=== PATIENT | male | born 1965 | race Caucasian/White ===

== ENCOUNTER 2020-07-09 19:38 | Inpatient (IN) | payer MEDICARE, MEDICAID, SELFPAY ==
[2020-07-09 19:39] VITALS: BP 134/61; PULSE 81; RESP 16; TEMP 36.4; O2SAT 98; BMI 28.8
--- NOTE | 2020-07-09 19:53 | RAD_ITS ---
STUDY: X-RAY - LEFT FOOT CLINICAL: Male, 54 years old. Redness, pain and swelling to foot, started today. TECHNIQUE: 3 view(s) of the foot. COMPARISON: None. FINDINGS: Normal talus, calcaneus, and tarsal bones. Normal visualized subtalar, talonavicular, calcaneocuboid, tarsal and tarsometatarsal articulations. Normal metatarsi. Normal metatarsophalangeal joint of the great toe. Normal tibial and fibular sesamoid bones. Normal interphalangeal joint of the great toe. Normal phalanges of the great toe. Normal second through fifth metatarsophalangeal joints. Remote deformity of the third proximal phalanx. Vascular calcifications. Soft tissue swelling. RAD/Foot 2 Views IMPRESSION: No acute osseous abnormality is evident. Electronically Signed: Tung Ambrose MD at 21:03 EDT Tel , Service support ,
--- NOTE | 2020-07-09 19:54 | ED.VIS.GEN ---
History of Present Illness Chief Complaint: Cellulitis Narrative: Presents with left foot pain and swelling that started yesterday he gradually got worse but it seems to be gotten worse over the past few hours he is having some lymphangitic streaking. He has a history of kidney pancreas transplant. No fevers or chills. He has no abdominal pain no chest pain or shortness of breath. No known trauma but his sister did notice a puncture wound on the plantar side of his foot. Past Medical History - Allergies and Home Meds Allergies/Adverse Reactions: Allergies doxazosin Adverse Reaction (Verified 07/09/20 19:42) Rash doxycycline Adverse Reaction (Verified 07/09/20 19:42) Rash Penicillins Adverse Reaction (Verified 07/09/20 19:42) Rash Primary Care Physician: Tung Isaac MD [Primary Care Provider] - Past Medical History: - - Hypertension, history of diabetes, history of pancreas and kidney transplant on immunosuppressants Smoking Status: Never smoker Review of Systems All systems negative except as indicated General: Denies: Fever Cardiovascular: Denies: Chest pain, Palpitations Respiratory: Denies: Dyspnea, Cough Genitourinary: Denies: Dysuria, Hematuria Musculoskeletal: Reports: - - Left foot pain as in HPI. Denies: Myalgias Skin: Reports: Rash Neurological: Denies: Headache Psych: Denies: Depression Endocrine: Denies: Polyuria Hematologic: Denies: Easy bruising, Easy bleeding Physical Exam Vital Signs/Narrative: Vital Signs Temp Pulse Resp BP Pulse Ox 07/09/20 19:39 97.6 F L 81 16 134/61 H 98 General: Well nourished, Well developed Head: Normocephalic ENT: Moist mucous membranes Neck: Supple Cardiovascular: Regular rate, Regular rhythm Respiratory: No distress, CTA bilaterally Abdomen: Soft, Nontender, Nondistended Back: Nontender Extremities: - - There is an amputation of the left upper extremity. Left lower extremity shows a puncture wound distal plantar region as well as surrounding erythema on the distal dorsum foot with proximal lymphangitic streaking past the ankle. No calf pain no cellulitis of his leg. No crepitus Neurological: Alert, Normal Strength, Normal Sensation Diagnostic/Tx/Re-eval - Medical Decision Making She has a quite elevated CRP, otherwise his inflammatory markers are unremarkable regardless he is immunocompromised he has lymphangitic streaking. He was given antibiotics and will be admitted. I demarcated the lymphangitic streak. ED Disposition - Plan for ED Patient: Disposition: Acute Care Hospital [facility] Diagnosis: Cellulitis with lymphangitis Referrals: Tung Isaac MD [Primary Care Provider] -
[2020-07-09 20:26] LABS: Erythrocyte Sedimentation Rate 18 mm/hr (0-20)
[2020-07-09 20:30] LABS: Absolute Lymphocyte Count 2.08 X10^3/uL (0.83-4.51); Absolute Neutrophil Count 6.5 X10^3/uL (2.0-7.7); Basophil# 0.04 X10^3/uL; Basophil% 0.4 % (0-1); Eosinophil# 0.04 X10^3/uL; Eosinophils% 0.4 % (0-5); Hematocrit 44.4 % (40-54); Hemoglobin 14.6 g/dL (13.0-16.5); Lymphocyte # 2.08 X10^3/ul (4.0); Lymphocyte % 21.9 % (19-41); Mean Corp Hgb Conc 32.9 g/dL (32-36); Mean Corpuscular Hgb 28.6 pg (27.0-32.0); Mean Corpuscular Volume 87.1 fL (80-94); Mean Platelet Vol. 11.2 fl (6.2-12.0); Monocyte# 0.86 X10^3/uL; NRBC Flagged by Analyzer 0 % (0-5); Neutrophil # 6.45 X10^3/uL (2.7-7.7); Neutrophil % 67.9 % (47-70); Platelet Count 137 K/mm3 (150-450); RBC Distribution Width CV 13.5 % (11.6-14.6); RBC Distribution Width SD 42.1 fl (35.1-43.9); White Blood Count 9.5 K/mm3 (4.4-11.0)
[2020-07-09 20:40] LABS: ALB/GLOB Ratio 1.1 RATIO (0.9-2.4); AST(SGOT) 39 U/L (15-37); Alanine Aminotransfer ALT/SGPT 38 U/L (16-61); Albumin, Serum 3.4 g/dL (3.2-5.0); Alkaline Phosphatase 100 U/L (45-117); Anion Gap 5 (5-15); BUN 13 mg/dL (7-18); BUN/Creat Ratio 11.8 RATIO (10-20); Calcium,Total 8.5 mg/dL (8.5-10.1); Chloride 104 mmol/L (98-107); EST Glomerular Filtration Rate 74 mL/min (>60); Est Glom Filt Rate - Afr Amer 89 mL/min (>60); Estimated Creatinine Clearance 75.88 ml/min; Globulin 3.1 g/dL (2.2-4.2); Glucose 93 mg/dL (74-106); Potassium 3.5 mmol/L (3.5-5.1); Protein, Total 6.5 g/dL (6.4-8.2); Sodium Level 135 mmol/L (136-145)
[2020-07-09 21:13] VITALS: BP 128/66; PULSE 80; RESP 15; O2SAT 97
[2020-07-09 21:37] VITALS: BP 128/66; PULSE 80; RESP 15; TEMP 36.4; O2SAT 97
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
[2020-07-09 21:52] VITALS: BP 144/65; PULSE 64; RESP 18; TEMP 36.7; O2SAT 96; BMI 28.2
[2020-07-09 22:03] VITALS: BMI 28.2
[2020-07-09] MEDS: 0.9% Saline Lock 10 ML Syringe IV (22:32)
[2020-07-10 03:41] VITALS: BP 115/54; PULSE 77; RESP 16; TEMP 37.1; O2SAT 95
[2020-07-10] MEDS: 0.9% Saline Lock 10 ML Syringe IV ×4 (05:22→22:11)
[2020-07-10 05:42] LABS: Absolute Lymphocyte Count 1.33 X10^3/uL (0.83-4.51); Absolute Neutrophil Count 4.3 X10^3/uL (2.0-7.7); Basophil# 0.03 X10^3/uL; Basophil% 0.5 % (0-1); Eosinophil# 0.07 X10^3/uL; Eosinophils% 1.1 % (0-5); Hematocrit 41.9 % (40-54); Hemoglobin 13.5 g/dL (13.0-16.5); Lymphocyte # 1.33 X10^3/ul (4.0); Mean Corp Hgb Conc 32.2 g/dL (32-36); Mean Corpuscular Hgb 28.1 pg (27.0-32.0); Mean Corpuscular Volume 87.1 fL (80-94); Mean Platelet Vol. 10.8 fl (6.2-12.0); Monocyte# 0.62 X10^3/uL; Monocyte% 9.8 % (0-10); NRBC Flagged by Analyzer 0 % (0-5); Neutrophil # 4.26 X10^3/uL (2.7-7.7); Neutrophil % 67.3 % (47-70); Platelet Count 123 K/mm3 (150-450); RBC Distribution Width CV 13.3 % (11.6-14.6); RBC Distribution Width SD 42.2 fl (35.1-43.9); Red Blood Count 4.81 M/mm3 (4.6-6.2); White Blood Count 6.3 K/mm3 (4.4-11.0)
[2020-07-10 06:03] LABS: AST(SGOT) 37 U/L (15-37); Alanine Aminotransfer ALT/SGPT 36 U/L (16-61); Alkaline Phosphatase 95 U/L (45-117); Anion Gap 5 (5-15); BUN 10 mg/dL (7-18); BUN/Creat Ratio 11.8 RATIO (10-20); Calcium,Total 8.3 mg/dL (8.5-10.1); Chloride 105 mmol/L (98-107); Creatinine, Serum 0.85 mg/dL (0.70-1.30); EST Glomerular Filtration Rate 99 mL/min (>60); Est Glom Filt Rate - Afr Amer 120 mL/min (>60); Estimated Creatinine Clearance 98.19 ml/min; Globulin 3.1 g/dL (2.2-4.2); Glucose 100 mg/dL (74-106); Potassium 3.5 mmol/L (3.5-5.1); Protein, Total 6.1 g/dL (6.4-8.2); Sodium Level 136 mmol/L (136-145)
[2020-07-10 06:54] VITALS: O2SAT 92
[2020-07-10 08:17] VITALS: BP 129/56; PULSE 86; RESP 16; TEMP 37.3; O2SAT 94
[2020-07-10] MEDS: Tacrolimus Anhydrous 1 MG Capsule PO (08:21)
[2020-07-10] MEDS: Mycophenolate Mofetil 250 MG Capsule 500 MG PO ×2 (08:21→20:06)
[2020-07-10] MEDS: Enoxaparin 40 MG/0.4 ML Syringe SC (08:22)
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
--- NOTE | 2020-07-10 11:42 | PN_ITS ---
Patient Problems: Active and Suspected Problems (Last Updated 07/09/20 @ 22:[address] Zachary Jean MD) Cellulitis with lymphangitis (Acute) Subjective: Patient seen and examined. He had no complaints today. He still has redness on his left foot, but denies any fever, chills or increased pain. He says his foot is less painful. Review of systems otherwise negative. Vitals/I&O's: Vital Signs Temp Pulse Resp BP Pulse Ox 99.1 F 86 16 129/56 H 94 07/10/20 08:17 07/10/20 08:17 07/10/20 08:17 07/10/20 08:17 07/10/20 08:17 Oxygen Delivery Method Room Air Weight: 190 lb 14.725 oz Body Mass Index (BMI) 28.2 Intake and Output for Last 24 Hours 07/08/20 07/09/20 07/10/20 23:59 23:59 23:59 Intake Total 606 / 606 210.50 / 210.50 Balance 606 / 606 210.50 / 210.50 General: Alert, Oriented x3, Cooperative HEENT: Atraumatic, PERRLA, EOMI, Normocephalic Oral: Dry Mucosa Neck: Supple, No JVD, Negative Carotid Bruits Lungs: Clear to auscultation, Normal air movement, No rhonchi, No wheeze Cardiovascular: Regular rate, Regular Rhythm, Normal S1, Normal S2, No murmurs Abdomen: Bowel Sounds Present, Soft, Non Tender, Non-Distended, No Hepato- splenomegaly Extremities: No clubbing, No cyanosis, No edema, Capillary Refill Less than 3 Seconds Skin: No rashes, No breakdown Musculoskeletal: - - LUE below elbow amputation. erythema on dorsum of left foot. has firm induration with healing superficial ulcer Neurological: Cranial nerves II-XII grossly intact, Neuro grossly intact, Motor Exam 5/5 strength throughout Psych/Mental Status: Normal Affect, Appropriate, Alert and oriented to time, place, person, mood and affect Laboratory Results 07/09/20 20:10: WBC 9.5, RBC 5.10, Hgb 14.6, Hct 44.4, MCV 87.1, MCH 28.6, MCHC 32.9, RDW Std Deviation 42.1, RDW Coeff of Jairo 13.5, Plt Count 137 L, MPV 11.2, Immature Gran % (Auto) 0.400, Neut % (Auto) 67.9, Lymph % (Auto) 21.9, [place] % (Auto) 9.0, Eos % (Auto) 0.4, Baso % (Auto) 0.4, Absolute Neuts (auto) 6.5, Absolute Lymphs (auto) 2.08, Nucleated RBC % 0, ESR 18 07/09/20 20:10: Sodium 135 L, Potassium 3.5, Chloride 104, Carbon Dioxide 26.0, Anion Gap 5, BUN 13, Creatinine 1.10, Estim Creat Clear Calc 75.88, Est GFR (MDRD) Af Amer 89, Est GFR (MDRD) Non-Af 74, BUN/Creatinine Ratio 11.8, Glucose 93, Calcium 8.5, Total Bilirubin 0.90, AST 39 H, ALT 38, Alkaline Phosphatase 100, C-React Prot Ext Range 51.00 H, Total Protein 6.5, Albumin 3.4, Globulin 3.1, Albumin/Globulin Ratio 1.1 07/10/20 05:16: WBC 6.3, RBC 4.81, Hgb 13.5, Hct 41.9, MCV 87.1, MCH 28.1, MCHC 32.2, RDW Std Deviation 42.2, RDW Coeff of Jairo 13.3, Plt Count 123 L, MPV 10.8, Immature Gran % (Auto) 0.300, Neut % (Auto) 67.3, Lymph % (Auto) 21.0, [place] % (Auto) 9.8, Eos % (Auto) 1.1, Baso % (Auto) 0.5, Absolute Neuts (auto) 4.3, Absolute Lymphs (auto) 1.33, Nucleated RBC % 0 07/10/20 05:16: Sodium 136, Potassium 3.5, Chloride 105, Carbon Dioxide 26.0, Anion Gap 5, BUN 10, Creatinine 0.85, Estim Creat Clear Calc 98.19, Est GFR (MDRD) Af Amer 120, Est GFR (MDRD) Non-Af 99, BUN/Creatinine Ratio 11.8, Glucose 100, Calcium 8.3 L, Total Bilirubin 1.00, AST 37, ALT 36, Alkaline Phosphatase 95, Total Protein 6.1 L, Albumin 3.0 L, Globulin 3.1, Albumin/Globulin Ratio 1.0 Diagnostic Data Foot X-Ray 07/09/20 19:53 IMPRESSION: No acute osseous abnormality is evident. Electronically Signed: Tung Ambrose MD at 21:03 EDT Tel , Service support , Current Medications Acetaminophen (Tylenol) 650 mg PO Q6H PRN PRN PRN Reason: Pain Score 1-10/Temp > 100.7 F Albuterol Sulfate (Ventolin Aerosols) 2.5 mg INHALATION Q2H PRN PRN PRN Reason: Shortness of Breath/Wheezing Enoxaparin Sodium (Lovenox) 40 mg SC DAILY [facility] Last Admin: 07/10/20 08:22 Dose: 40 mg Documented by: Sodium Chloride () 250 mls @ 15 mls/hr IV .[id number] PRN PRN Reason: Saline Flush Last Infusion: 07/10/20 07:45 Dose: 15 mls/hr Documented by: Sodium Chloride () 250 mls @ 15 mls/hr IV .[id number] PRN PRN Reason: Additional IVPB Infusion Clindamycin Phosphate 900 mg/ (Dextrose) 106 mls @ 150 mls/hr IV Q8 [facility] Last Infusion: 07/10/20 06:11 Dose: Infused Documented by: Melatonin (Melatonin) 3 mg PO QHS PRN PRN PRN Reason: INSOMNIA Mycophenolate Mofetil (Cellcept) 500 mg PO BID@0800,1999 [facility] Last Admin: 07/10/20 08:21 Dose: 500 mg Documented by: Ondansetron HCl (Zofran) 4 mg IV Q8H PRN PRN PRN Reason: NAUSEA/VOMITING Sodium Chloride () 10 - 40 ml IV UD PRN PRN Reason: SALINE FLUSH Last Admin: 07/10/20 06:26 Dose: 10 ml Documented by: Tacrolimus (Prograf) 3 mg PO 0800 [facility] Tacrolimus (Prograf) 2 mg PO 1999 [facility] STROKE Vital Signs/Narrative: Vital Signs Temp Pulse Resp BP Pulse Ox 07/10/20 08:17 99.1 F 86 16 129/56 H 94 Medical Necessity - Tobacco Use Smoking Status: Never smoker Assessment/Plan All Active Problems (Last Updated 07/09/20 @ 22:[address] Zachary Jean MD) Cellulitis with lymphangitis (Acute) # Cellulitis of the left foot * pain i well controlled * on IV clindamycin; foot xray showed no acute osseous abnormality * podiatry consulted. * # ESRD * s/p kidney stransplant,. Also had a pancreas transplant * on tacrolimus and mycophenolate * * #Dupuytren's contracture * to follow up with surgeon on outpatient's basis. * DVT prophylaxis: lovenox Inpatient E&M: 68566 Subs Hosp L2
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
[2020-07-10 13:25] VITALS: BP 134/63; PULSE 85; RESP 18; TEMP 36.9; O2SAT 96
[2020-07-10 18:05] VITALS: BP 122/61; PULSE 98; RESP 18; TEMP 37.2; O2SAT 97
[2020-07-10] MEDS: Tacrolimus Anhydrous 1 MG Capsule 2 MG PO (20:07)
[2020-07-10 20:09] VITALS: BP 118/53; PULSE 86; RESP 17; TEMP 37.2; O2SAT 95
[2020-07-11 02:23] VITALS: BP 134/71; PULSE 82; RESP 16; TEMP 37.2; O2SAT 94
[2020-07-11] MEDS: 0.9% Saline Lock 10 ML Syringe IV ×3 (02:28→21:22)
[2020-07-11 06:32] LABS: Absolute Lymphocyte Count 1.69 X10^3/uL (0.83-4.51); Absolute Neutrophil Count 3.7 X10^3/uL (2.0-7.7); Basophil# 0.03 X10^3/uL; Basophil% 0.5 % (0-1); Eosinophil# 0.04 X10^3/uL; Eosinophils% 0.7 % (0-5); Hematocrit 43.6 % (40-54); Hemoglobin 14.1 g/dL (13.0-16.5); Lymphocyte # 1.69 X10^3/ul (4.0); Lymphocyte % 27.6 % (19-41); Mean Corp Hgb Conc 32.3 g/dL (32-36); Mean Corpuscular Hgb 28.1 pg (27.0-32.0); Mean Corpuscular Volume 86.9 fL (80-94); Mean Platelet Vol. 10.3 fl (6.2-12.0); Monocyte% 9.8 % (0-10); NRBC Flagged by Analyzer 0 % (0-5); Neutrophil # 3.74 X10^3/uL (2.7-7.7); Neutrophil % 60.9 % (47-70); Platelet Count 147 K/mm3 (150-450); RBC Distribution Width CV 13.3 % (11.6-14.6); RBC Distribution Width SD 41.7 fl (35.1-43.9); Red Blood Count 5.02 M/mm3 (4.6-6.2); White Blood Count 6.1 K/mm3 (4.4-11.0)
[2020-07-11 07:02] LABS: Anion Gap 5 (5-15); BUN 9 mg/dL (7-18); BUN/Creat Ratio 9.5 RATIO (10-20); Calcium,Total 8.5 mg/dL (8.5-10.1); Chloride 107 mmol/L (98-107); Creatinine, Serum 0.95 mg/dL (0.70-1.30); EST Glomerular Filtration Rate 87 mL/min (>60); Est Glom Filt Rate - Afr Amer 106 mL/min (>60); Estimated Creatinine Clearance 87.86 ml/min; Glucose 115 mg/dL (74-106); Potassium 3.7 mmol/L (3.5-5.1); Sodium Level 138 mmol/L (136-145)
[2020-07-11] MEDS: Mycophenolate Mofetil 250 MG Capsule 500 MG PO ×2 (07:51→19:33)
[2020-07-11] MEDS: Tacrolimus Anhydrous 1 MG Capsule 3 MG PO (07:51)
[2020-07-11 08:23] VITALS: BP 109/60; PULSE 54; RESP 18; TEMP 36.7; O2SAT 97
[2020-07-11] MEDS: Enoxaparin 40 MG/0.4 ML Syringe SC (09:27)
--- NOTE | 2020-07-11 11:15 | PCM.PN.HOSP ---
Patient Problems: Active and Suspected Problems (Last Updated 07/09/20 @ 22:[address] Zachary Jean MD) Cellulitis with lymphangitis (Acute) Foot ulcer, left (Acute) Subjective: Patient seen and examined. He feels well and has no complaints. Review of systems otherwise negative. Podiatry reviewed patient yesterday and did a bedside debridement of the left foot. No further workup planned per podiatry. He has remained hemodynamically stable. Vitals/I&O's: Vital Signs Temp Pulse Resp BP Pulse Ox 98.0 F 54 L 18 109/60 97 07/11/20 08:23 07/11/20 08:23 07/11/20 08:23 07/11/20 08:23 07/11/20 08:23 Oxygen Delivery Method Room Air Weight: 190 lb 14.725 oz Body Mass Index (BMI) 28.2 Intake and Output for Last 24 Hours 07/09/20 07/10/20 07/11/20 23:59 23:59 23:59 Intake Total 606 / 606 1347.50 / 1347.50 1001.5 / 1001.5 Balance 606 / 606 1347.50 / 1347.50 1001.5 / 1001.5 General: Alert, Oriented x3, Cooperative HEENT: Atraumatic, PERRLA, EOMI, Normocephalic Oral: Dry Mucosa Neck: Supple, No JVD, Negative Carotid Bruits Lungs: Clear to auscultation, Normal air movement, No rhonchi, No wheeze Cardiovascular: Regular rate, Regular Rhythm, Normal S1, Normal S2, No murmurs Abdomen: Bowel Sounds Present, Soft, Non Tender, Non-Distended, No Hepato-splenomegaly Extremities: No clubbing, No cyanosis, No edema, Capillary Refill Less than 3 Seconds Skin: No rashes, No breakdown Musculoskeletal: - - LUE below elbow amputation. left foot bandaged. Neurological: Cranial nerves II-XII grossly intact, Neuro grossly intact, Motor Exam 5/5 strength throughout Psych/Mental Status: Normal Affect, Appropriate, Alert and oriented to time, place, person, mood and affect Microbiology Past 72 Hours 07/10/20 22:30 Wound - Aerobic & Anaerobic Swabs Gram Stain - Final Laboratory Results 07/11/20 06:25: WBC 6.1, RBC 5.02, Hgb 14.1, Hct 43.6, MCV 86.9, MCH 28.1, MCHC 32.3, RDW Std Deviation 41.7, RDW Coeff of Jairo 13.3, Plt Count 147 L, MPV 10.3, Immature Gran % (Auto) 0.500, Neut % (Auto) 60.9, Lymph % (Auto) 27.6, [place] % (Auto) 9.8, Eos % (Auto) 0.7, Baso % (Auto) 0.5, Absolute Neuts (auto) 3.7, Absolute Lymphs (auto) 1.69, Nucleated RBC % 0 07/11/20 06:25: Sodium 138, Potassium 3.7, Chloride 107, Carbon Dioxide 26.0, Anion Gap 5, BUN 9, Creatinine 0.95, Estim Creat Clear Calc 87.86, Est GFR (MDRD) Af Amer 106, Est GFR (MDRD) Non-Af 87, BUN/Creatinine Ratio 9.5 L, Glucose 115 H, Calcium 8.5 Diagnostic Data Foot X-Ray 07/09/20 19:53 IMPRESSION: No acute osseous abnormality is evident. Electronically Signed: Tung Ambrose MD at 21:03 EDT Tel , Service support , Current Medications Acetaminophen (Tylenol) 650 mg PO Q6H PRN PRN PRN Reason: Pain Score 1-10/Temp > 100.7 F Albuterol Sulfate (Ventolin Aerosols) 2.5 mg INHALATION Q2H PRN PRN PRN Reason: Shortness of Breath/Wheezing Enoxaparin Sodium (Lovenox) 40 mg SC DAILY [facility] Last Admin: 07/11/20 09:27 Dose: 40 mg Documented by: Sodium Chloride () 250 mls @ 15 mls/hr IV .[id number] PRN PRN Reason: Saline Flush Last Infusion: 07/11/20 02:29 Dose: Infused Documented by: Sodium Chloride () 250 mls @ 15 mls/hr IV .[id number] PRN PRN Reason: Additional IVPB Infusion Clindamycin Phosphate 900 mg/ (Dextrose) 106 mls @ 150 mls/hr IV Q8 [facility] Last Infusion: 07/11/20 05:49 Dose: Infused Documented by: Melatonin (Melatonin) 3 mg PO QHS PRN PRN PRN Reason: INSOMNIA Mycophenolate Mofetil (Cellcept) 500 mg PO BID@799,1999 [facility] Last Admin: 07/11/20 07:51 Dose: 500 mg Documented by: Ondansetron HCl (Zofran) 4 mg IV Q8H PRN PRN PRN Reason: NAUSEA/VOMITING Sodium Chloride () 10 - 40 ml IV UD PRN PRN Reason: SALINE FLUSH Last Admin: 07/11/20 02:28 Dose: 10 ml Documented by: Tacrolimus (Prograf) 3 mg PO 08 [facility] Last Admin: 07/11/20 07:51 Dose: 3 mg Documented by: Tacrolimus (Prograf) 2 mg PO 1999 [facility] Last Admin: 07/10/20 20:07 Dose: 2 mg Documented by: STROKE Vital Signs/Narrative: Vital Signs Temp Pulse Resp BP Pulse Ox 07/11/20 08:23 98.0 F 54 L 18 109/60 97 Medical Necessity - Tobacco Use Smoking Status: Never smoker Assessment/Plan All Active Problems (Last Updated 07/09/20 @ 22:[address] Zachary Jean MD) Cellulitis with lymphangitis (Acute) Foot ulcer, left (Acute) # Cellulitis of the left foot pain is well controlled; had left foot debridement by podiatry. per podiatry, no further workup planned on IV clindamycin; foot xray showed no acute osseous abnormality podiatry consulted. # ESRD s/p kidney stransplant,. Also had a pancreas transplant on tacrolimus and mycophenolate #Dupuytren's contracture to follow up with surgeon on outpatient's basis. DVT prophylaxis: lovenox Disposition: for dc home tomorrow. Inpatient E&M: 28465 Subs Hosp L2
--- NOTE | 2020-07-11 12:40 | PN_ITS ---
Patient Problems: Active and Suspected Problems (Last Updated 07/09/20 @ 22:[address] Zachary Jean MD) Cellulitis with lymphangitis (Acute) Foot ulcer, left (Acute) - Physical Exam Vitals/I&O's: Vital Signs Temp Pulse Resp BP Pulse Ox 98.0 F 54 L 18 109/60 97 07/11/20 08:23 07/11/20 08:23 07/11/20 08:23 07/11/20 08:23 07/11/20 08:23 Oxygen Delivery Method Room Air Weight: 86.6 kg Body Mass Index (BMI) 28.2 Intake and Output for Last 24 Hours 07/09/20 07/10/20 07/11/20 23:59 23:59 23:59 Intake Total 606 / 606 1347.50 / 1347.50 1001.5 / 1001.5 Balance 606 / 606 1347.50 / 1347.50 1001.5 / 1001.5 General: Alert, Oriented x3 HEENT: Atraumatic Extremities: No clubbing, No cyanosis, Capillary Refill Less than 3 Seconds, Diminished Peripheral Pulses, Edema - improved, - - Left upper extremity partial ampputation. Lower extremity: Nonpalpable left DP, palpable right DP and b/l PT. Skin is warm. Muscles strength full for all muscle groups. Mild pain on palpation to plantar left forefoot. Decreased light touch sensation to digits. Erythema noted to dorsal foot, improved from yesterday. Edema noted to left foot. Plantar forefoot ulceration. Did not probe, to level of sub q, no fluctuance, no crepitus, no malodor, granular base, no drainage Skin: Ulcer/ Wound Musculoskeletal: Tenderness - left foot ulcer Neurological: Neuro grossly intact Psych/Mental Status: Normal Affect, Appropriate Microbiology Past 72 Hours 07/10/20 22:30 Wound - Aerobic & Anaerobic Swabs Gram Stain - Final Laboratory Results 07/11/20 06:25: WBC 6.1, RBC 5.02, Hgb 14.1, Hct 43.6, MCV 86.9, MCH 28.1, MCHC 32.3, RDW Std Deviation 41.7, RDW Coeff of Jairo 13.3, Plt Count 147 L, MPV 10.3, Immature Gran % (Auto) 0.500, Neut % (Auto) 60.9, Lymph % (Auto) 27.6, [place] % (Auto) 9.8, Eos % (Auto) 0.7, Baso % (Auto) 0.5, Absolute Neuts (auto) 3.7, Absolute Lymphs (auto) 1.69, Nucleated RBC % 0 07/11/20 06:25: Sodium 138, Potassium 3.7, Chloride 107, Carbon Dioxide 26.0, Anion Gap 5, BUN 9, Creatinine 0.95, Estim Creat Clear Calc 87.86, Est GFR (MDRD) Af Amer 106, Est GFR (MDRD) Non-Af 87, BUN/Creatinine Ratio 9.5 L, Glucose 115 H, Calcium 8.5 Current Medications Acetaminophen (Tylenol) 650 mg PO Q6H PRN PRN PRN Reason: Pain Score 1-10/Temp > 100.7 F Albuterol Sulfate (Ventolin Aerosols) 2.5 mg INHALATION Q2H PRN PRN PRN Reason: Shortness of Breath/Wheezing Enoxaparin Sodium (Lovenox) 40 mg SC DAILY [facility] Last Admin: 07/11/20 09:27 Dose: 40 mg Documented by: Sodium Chloride () 250 mls @ 15 mls/hr IV .[id number] PRN PRN Reason: Saline Flush Last Infusion: 07/11/20 02:29 Dose: Infused Documented by: Sodium Chloride () 250 mls @ 15 mls/hr IV .[id number] PRN PRN Reason: Additional IVPB Infusion Clindamycin Phosphate 900 mg/ (Dextrose) 106 mls @ 150 mls/hr IV Q8 [facility] Last Infusion: 07/11/20 05:49 Dose: Infused Documented by: Melatonin (Melatonin) 3 mg PO QHS PRN PRN PRN Reason: INSOMNIA Mycophenolate Mofetil (Cellcept) 500 mg PO BID@0800,2000 [facility] Last Admin: 07/11/20 07:51 Dose: 500 mg Documented by: Ondansetron HCl (Zofran) 4 mg IV Q8H PRN PRN PRN Reason: NAUSEA/VOMITING Sodium Chloride () 10 - 40 ml IV UD PRN PRN Reason: SALINE FLUSH Last Admin: 07/11/20 02:28 Dose: 10 ml Documented by: Tacrolimus (Prograf) 3 mg PO 0800 [facility] Last Admin: 07/11/20 07:51 Dose: 3 mg Documented by: Tacrolimus (Prograf) 2 mg PO 1999 [facility] Last Admin: 07/10/20 20:07 Dose: 2 mg Documented by: Medical Necessity - Tobacco Use Smoking Status: Never smoker Assessment/Plan All Active Problems (Last Updated 07/09/20 @ 22:[address] Zachary Jean MD) Cellulitis with lymphangitis (Acute) Foot ulcer, left (Acute) left foot cellulitis left foot ulcer Patient was seen and examined Dorsal erythema noted with plantar ulceration doesn't probe Ulcer didn't probe and was no fluctuance, low suspicion of underlying abscess. I don't believe further imaging is necessary XR reviewed without foreign body no leukocytosis, normal ESR, elevated CRP Continue wound care with DSD can do limited weight bearing with focus to heel Continue IV abx follow wound culture results Will continue to follow Ok to DC from podiatry perspective, follow up with Dr Garcia in 1 week. Continue wound care covering plantar foot with DSD
[2020-07-11 14:25] VITALS: BP 137/67; PULSE 78; RESP 18; TEMP 36.6; O2SAT 98
--- NOTE | 2020-07-11 14:41 | DCINST_ITS ---
Discharge Activity: Return to Normal Activity - focus weight bearing to heel left foot Weight Bearing Status: Weight bearing as tolerated, Partial weight bearing - to heel left Call your doctor if your incision/area has: Increased Pain/ Swelling, Increased Redness, Foul Smelling Discharge Call your doctor if you observe: Fever of 101 or Higher, Change in Color, Dizziness, Chest pain, Calf discomfort Change Dressing in (Days):: 2 - every other day Cleanse incision/area with: Soap & Water Additional Dressing/Incision Instructions:: after cleaning cover with dry sterile dressing, if gets wet clean and reapply dressing Allergies/Adverse Reactions: Allergies doxazosin Adverse Reaction (Verified 07/09/20 21:55) Rash doxycycline Adverse Reaction (Verified 07/09/20 21:55) Rash Penicillins Adverse Reaction (Verified 07/09/20 21:55) Rash Medications to take at Discharge Mycophenolate Mofetil [Cellcept] 500 mg PO BID 07/09/20 Tacrolimus Anhydrous [Prograf] 2 mg PO QHS 07/10/20 Tacrolimus Anhydrous [Prograf] 3 mg PO DAILY 07/10/20 Primary Care Physician: Tung Isaac MD [Primary Care Provider] - Test Results: Test results from this visit will be discussed in further detail at your follow- up appointment, if applicable. Please Follow Up With: Sherron Garcia DPM When: in 1 week
[2020-07-11 17:19] VITALS: O2SAT 93
[2020-07-11 19:32] VITALS: BP 112/70; PULSE 83; RESP 17; TEMP 37.1; O2SAT 97
[2020-07-11] MEDS: Tacrolimus Anhydrous 1 MG Capsule 2 MG PO (19:33)
[2020-07-12 02:34] VITALS: BP 128/67; PULSE 82; RESP 16; TEMP 36.9; O2SAT 97
[2020-07-12] MEDS: 0.9% Saline Lock 10 ML Syringe IV (05:46)
[2020-07-12] MEDS: Enoxaparin 40 MG/0.4 ML Syringe SC (07:44)
[2020-07-12] MEDS: Mycophenolate Mofetil 250 MG Capsule 500 MG PO (07:44)
[2020-07-12] MEDS: Tacrolimus Anhydrous 1 MG Capsule 3 MG PO (07:44)
[2020-07-12 07:52] VITALS: BP 128/56; PULSE 85; RESP 16; TEMP 36.9; O2SAT 98
--- NOTE | 2020-07-12 09:11 | DCINST_ITS ---
- Discharge Diagnoses Current Active Problems: Current Active and Chronic Problems (Last Updated 07/09/20 @ 22:[address] Zachary Jean MD) Cellulitis with lymphangitis (Acute) Foot ulcer, left (Acute) You will use the following diet at home:: No restrictions Your food should be the consistency of: Regular Your liquids should be the consistency of: Regular/Thin Discharge Activity: Return to Normal Activity - focus weight bearing to heel l eft foot Weight Bearing Status: Weight bearing as tolerated, Partial weight bearing - to heel left Call your doctor if your incision/area has: Increased Pain/ Swelling, Increased Redness, Foul Smelling Discharge Call your doctor if you observe: Fever of 101 or Higher, Change in Color, Dizziness, Chest pain, Calf discomfort Change Dressing in (Days):: 2 - every other day Cleanse incision/area with: Soap & Water Additional Dressing/Incision Instructions:: after cleaning cover with dry sterile dressing, if gets wet clean and reapply dressing Instructions: ED Cellulitis Allergies/Adverse Reactions: Allergies doxazosin Adverse Reaction (Verified 07/09/20 21:55) Rash doxycycline Adverse Reaction (Verified 07/09/20 21:55) Rash Penicillins Adverse Reaction (Verified 07/09/20 21:55) Rash Medications to take at Discharge Mycophenolate Mofetil [Cellcept] 500 mg PO BID 07/09/20 Tacrolimus Anhydrous [Prograf] 2 mg PO QHS 07/10/20 Tacrolimus Anhydrous [Prograf] 3 mg PO DAILY 07/10/20 Clindamycin HCl 300 mg PO [id number] #20 cap 07/12/20 The following prescriptions were given: Clindamycin HCl 300 mg PO [id number] #20 cap Transmission Status: Pending to [facility]/pharmacy #[id number] Primary Care Physician: Tung Isaac MD [Primary Care Provider] - Please follow up with your Primary Care Physician in: 1-2 weeks Test Results: Test results from this visit will be discussed in further detail at your follow- up appointment, if applicable. Please Follow Up With: Sherron Garcia DPM When: in 1 week Proposed Discharge Date: 07/12/20
--- NOTE | 2020-07-12 09:13 | PCM.DC.SUM ---
Discharge Date and Diagnosis Date of Admission: 07/09/20 Date of Discharge: 07/12/20 - Primary Discharge Diagnosis Acute Problems: Active Problems (Last Updated 07/09/20 @ 22:[address] Zachary Jean MD) Cellulitis with lymphangitis (Acute) Foot ulcer, left (Acute) Hospital Course and Treatment Imaging Results: Diagnostic Data Foot X-Ray 07/09/20 19:53 IMPRESSION: No acute osseous abnormality is evident. Electronically Signed: Tung Ambrose MD at 21:03 EDT Tel , Service support , podiatry Operations: None Procedures: None Summary of Care Provided: The patient is a 54 year old M with a past medical history as outlined including ESRD s/p renal transplant. Was admitted via the ED on 07/09/2020 with a complaint of redness of his left foot as well as a puncture injury on the plantar side of his left foot. He had associated swelling and pain of the left foot with the pain increased when he bore weight on the affected foot. He denied any fever or chills, nausea vomiting or diarrhea. Review of symptoms otherwise negative. X-ray of the left foot done showed no acute pathology. He was admitted and managed for cellulitis of the left foot. He was started on IV clindamycin. Podiatry was consulted and patient had bedside debridement of the left plantar forefoot ulceration. Patient tolerated procedure well. ESR was normal and CRP was elevated. Patient remained stable, and pain resolved. Patient was discharged home on 07/12/2020 with a script for PO clindamycin 300mg q6hrly x 5 days. He is to follow up with PCP and podiatry in 1 week. Patient seen and examined prior to discharge. He had no complaints and felt well. Review of systems was otherwise negative. Labs and vitals stable. Home medications reviewed and reconciled. O/E: Vital Signs Temp Pulse Resp BP Pulse Ox 98.5 F 85 16 128/56 H 90 07/12/20 07:52 07/12/20 07:52 07/12/20 07:52 07/12/20 07:52 07/12/20 10:14 General: Alert, Oriented x3, Cooperative HEENT: Atraumatic, PERRLA, EOMI, Normocephalic Oral: Dry Mucosa Neck: Supple, No JVD, Negative Carotid Bruits Lungs: Clear to auscultation, Normal air movement, No rhonchi, No wheeze Cardiovascular: Regular rate, Regular Rhythm, Normal S1, Normal S2, No murmurs Abdomen: Bowel Sounds Present, Soft, Non Tender, Non-Distended, No Hepato-splenomegaly Extremities: No clubbing, No cyanosis, No edema, Capillary Refill Less than 3 Seconds Skin: No rashes, No breakdown Musculoskeletal: - - LUE below elbow amputation. left foot bandaged. Neurological: Cranial nerves II-XII grossly intact, Neuro grossly intact, Motor Exam 5/5 strength throughout Psych/Mental Status: Normal Affect, Appropriate, Alert and oriented to time, place, person, mood and affect Plan is for discharge home today on PO clindamycin x 5 days. He is to keep his wound dressed as per podiatry instructions until he is reviewed by podiatry. - Physical Exam Vitals/I&O's: Vital Signs Temp Pulse Resp BP Pulse Ox 98.5 F 85 16 128/56 H 98 07/12/20 07:52 07/12/20 07:52 07/12/20 07:52 07/12/20 07:52 07/12/20 07:52 Oxygen Delivery Method Room Air Weight: 190 lb 14.725 oz Body Mass Index (BMI) 28.2 Intake and Output for Last 24 Hours 07/10/20 07/11/20 07/12/20 23:59 23:59 23:59 Intake Total 1347.50 / 1347.50 2943.5 / 2943.5 746 / 746 Balance 1347.50 / 1347.50 2943.5 / 2943.5 746 / 746 Microbiology Past 72 Hours 07/10/20 22:30 Wound - Aerobic & Anaerobic Swabs Gram Stain - Final Current Medications Acetaminophen (Tylenol) 650 mg PO Q6H PRN PRN PRN Reason: Pain Score 1-10/Temp > 100.7 F Albuterol Sulfate (Ventolin Aerosols) 2.5 mg INHALATION Q2H PRN PRN PRN Reason: Shortness of Breath/Wheezing Enoxaparin Sodium (Lovenox) 40 mg SC DAILY [facility] Last Admin: 10/07/20 07:44 Dose: 40 mg Documented by: Sodium Chloride () 250 mls @ 15 mls/hr IV .[id number] PRN PRN Reason: Saline Flush Last Infusion: 07/11/20 02:29 Dose: Infused Documented by: Sodium Chloride () 250 mls @ 15 mls/hr IV .[id number] PRN PRN Reason: Additional IVPB Infusion Clindamycin Phosphate 900 mg/ (Dextrose) 106 mls @ 150 mls/hr IV Q8 [facility] Last Infusion: 07/12/20 06:28 Dose: Infused Documented by: Melatonin (Melatonin) 3 mg PO QHS PRN PRN PRN Reason: INSOMNIA Mycophenolate Mofetil (Cellcept) 500 mg PO BID@0800,1999 [facility] Last Admin: 07/12/20 07:44 Dose: 500 mg Documented by: Ondansetron HCl (Zofran) 4 mg IV Q8H PRN PRN PRN Reason: NAUSEA/VOMITING Sodium Chloride () 10 - 40 ml IV UD PRN PRN Reason: SALINE FLUSH Last Admin: 07/12/20 05:46 Dose: 10 ml Documented by: Tacrolimus (Prograf) 3 mg PO 0800 [facility] Last Admin: 07/12/20 07:44 Dose: 3 mg Documented by: Tacrolimus (Prograf) 2 mg PO 1999 [facility] Last Admin: 07/11/20 19:33 Dose: 2 mg Documented by: Discharge Diet: Low fat/ Low Cholesterol Discharge Activity: Return to Normal Activity - focus weight bearing to heel left foot Weight Bearing Status: Weight bearing as tolerated, Partial weight bearing - to heel left Call your doctor if your incision/area has: Increased Pain/ Swelling, Increased Redness, Foul Smelling Discharge Call your doctor if you observe: Fever of 101 or Higher, Change in Color, Dizziness, Chest pain, Calf discomfort Change Dressing in (Days):: 2 - every other day Cleanse incision/area with: Soap & Water Additional Dressing/Incision Instructions:: after cleaning cover with dry sterile dressing, if gets wet clean and reapply dressing Home Medications: Medications to take at Discharge Mycophenolate Mofetil [Cellcept] 500 mg PO BID 07/09/20 Tacrolimus Anhydrous [Prograf] 2 mg PO QHS 07/10/20 Tacrolimus Anhydrous [Prograf] 3 mg PO DAILY 07/10/20 Clindamycin HCl 300 mg PO [id number] #20 cap 07/12/20 Following Prescriptions Were Given to Patient: Clindamycin HCl 300 mg PO [id number] #20 cap Transmission Status: Received by [facility]/pharmacy #[id number] Primary Care Physician: Tung Isaac MD [Primary Care Provider] - Please follow up with your Primary Care Physician in: 1-2 weeks Please Follow Up With: Sherron Garcia DPM When: in 1 week Patient Instructions: ED Cellulitis Disposition: Home Minutes spent on discharge:: 40 Patient Condition:: Stable Medical Necessity - Tobacco Use Smoking Status: Never smoker Meaningful Use Info Meaningful Use Diagnoses (Choose all that apply): None applicable Inpatient E&M: [id number] [facility] Hosp
[2020-07-12 10:14] VITALS: O2SAT 90
--- NOTE | 2020-07-12 11:00 | PHA.DC.MC ---
Pharmacy Service has performed discharge medication reconciliation and counseling for this patient. 1. CLINDAMYCIN 300MG PO Q6H X 5 DAYS The patient's discharge medication list was reviewed for discrepancies and discrepancies were resolved. Home Medications Mycophenolate Mofetil [Cellcept] 500 mg PO BID 07/09/20 Tacrolimus Anhydrous [Prograf] 2 mg PO QHS 07/10/20 Tacrolimus Anhydrous [Prograf] 3 mg PO DAILY 07/10/20 Clindamycin HCl 300 mg PO [id number] #20 cap 07/12/20 The patient was counseled on the following discharge medications and changes in medications for homegoing were reviewed. The Reason for Use, instructions for use, and potential side effects were reviewed for all new medications. The patient's questions regarding all of their medications were answered. The patient was able to verbally demonstrate an understanding of their discharge medications. Patient was counseled by pharmacy general managerHilda.
--- NOTE | 2020-07-12 12:01 | CASEMGMT ---
RN CM NOTE: Pt being discharged home. RN CM to room to discuss any home-going needs/concerns. Pt denies having any needs/concerns/questions. Pt aware he is to be PWB lt foot and denies having any concerns w/being able to get around/ambulate safely. Pt made aware to ask for RN CM if any concerns/needs arise. Georgie PATRICKN RN CM
== END 2020-07-12 12:36 | disposition home or self-care (01) | DRG 592 ==
LOC: ED 21:18 → MS3 21:26
PROVIDERS: Admitting Provider Hospitalist; Emergency Provider Emergency Medicine; PCP Family Medicine; Referring Provider Hospitalist; Visit Provider Student in an Organized Health Care Education/Training Program
DX: L97.521 Non-pressure chronic ulcer of other part of left foot limited to breakdown of skin (principal); N18.6 End stage renal disease; L03.116 Cellulitis of left lower limb; Z94.83 Pancreas transplant status; Z94.0 Kidney transplant status; I12.0 Hypertensive chronic kidney disease with stage 5 chronic kidney disease or end stage renal disease; E11.22 Type 2 diabetes mellitus with diabetic chronic kidney disease; Z89.212 Acquired absence of left upper limb below elbow; Z79.899 Other long term (current) drug therapy; M72.0 Palmar fascial fibromatosis [Dupuytren]
CPT/HCPCS: 73620; 80048; 80053; 85025; 85652; 86140; 87070; 87075; 87077; 87186; 87205; 97802; 99285; J7050; A4216

== ENCOUNTER 2020-07-20 16:35 | Inpatient (IN) | payer MEDICARE, MEDICAID, SELFPAY ==
[2020-07-20 16:36] VITALS: BP 140/66; PULSE 91; RESP 18; TEMP 36.6; O2SAT 99; BMI 27.4
--- NOTE | 2020-07-20 16:49 | ED.VIS.GEN ---
History of Present Illness Chief Complaint: Lower Extremity Injury Informant: Patient Onset: Days Context: Gradual Onset Timing: Continuous Current Severity: Moderate Maximum Severity: Moderate Narrative: The patient is a 54-year-old male with medical history significant for prior renal and pancreas transplant in 2007 who is on long-term immunosuppressants presents to the emergency department with increasing drainage from his left foot. The patient was hospitalized about 10 days ago with foot infection. He was treated with IV antibiotics and was seen in consultation with podiatry. There was no evidence of deep space infection and his symptoms had improved. He was discharged on clindamycin. He states that he finished it about 4 days ago. He had follow-up today with podiatry. His ulcer was unroofed. There was deep purulent drainage concerning for deep space infection. He was sent over from the podiatry office. He denies any fevers or chills. He does admit this mild pain in the foot. He has been compliant with all of his immune medications. He denies any new symptoms. Prior similar symptoms: Yes Recent Illness/Hospitalization: Yes Past Medical History - Allergies and Home Meds Allergies/Adverse Reactions: Allergies doxazosin Adverse Reaction (Verified 07/20/20 16:38) Rash doxycycline Adverse Reaction (Verified 07/20/20 16:38) Rash Penicillins Adverse Reaction (Verified 07/20/20 16:38) Rash Prior records reviewed: Yes Past Medical History: - - Renal and pancreas transplant Surgical History: - - Eye laser surgery Smoking Status: Never smoker - Family History Maternal Family History: Reports: Diabetes, - - Parkinson's disease Paternal Family History: Reports: COPD, Diabetes Review of Systems General: Denies: Chills, Fever, Sweats Eyes: Denies: Visual changes - bilaterally, Diplopia ENT: Denies: Rhinorrhea, Sore throat Cardiovascular: Denies: Chest pain, Palpitations Respiratory: Denies: Dyspnea, Cough, Dyspnea on exertion Gastrointestinal: Denies: Abdominal pain, Nausea, Vomiting, Diarrhea, Melena, Hematochezia Genitourinary: Denies: Dysuria, Hematuria, Frequency Musculoskeletal: Denies: Back pain, Extremity Pain Skin: Denies: Rash, Wounds Neurological: Denies: Headache, Weakness, Numbness Physical Exam Vital Signs/Narrative: Vital Signs Temp Pulse Resp BP Pulse Ox 07/20/20 16:36 97.9 F 91 18 140/66 H 99 Inital Vital Signs reviewed: Yes General: Well nourished, Well developed, No Acute Distress Head: Normocephalic, Atraumatic Eyes: Perrl, EOMI ENT: Moist mucous membranes, No rhinorrhea Neck: Supple, Nontender Cardiovascular: Regular rate, Regular rhythm, No murmurs Respiratory: No distress, CTA bilaterally, Chest nontender Abdomen: Soft, Nontender, Nondistended, Normal bowel sounds Back: Nontender, Normal Inspection Extremities: No edema, Tenderness - Patient does have erythema on the dorsum of the foot. There is some purulence between the first and second toe. There is unroofed ulcer on the plantar aspect of the foot. There is no significant streaking. The pulses are normal. Skin: Normal color, No rash Neurological: Alert, Oriented x3, Cranial nerves II-XII grossly intact, Normal Strength, Normal Sensation Psychological: Normal affect, Normal Mood Diagnostic/Tx/Re-eval Abnormal Lab Results 07/20/20 07/20/20 07/20/20 17:10 17:10 17:10 WBC 8.9 RBC 5.32 Hgb 14.6 Hct 45.5 MCV 85.5 MCH 27.4 MCHC 32.1 RDW Std Deviation 39.5 RDW Coeff of Jairo 12.8 Plt Count 206 MPV 10.9 Immature Gran % (Auto) 0.900 Neut % (Auto) 72.7 H Lymph % (Auto) 16.9 L [place] % (Auto) 8.6 Eos % (Auto) 0.3 Baso % (Auto) 0.6 Absolute Neuts (auto) 6.5 Absolute Lymphs (auto) 1.51 Nucleated RBC % 0 ESR 42 H Sodium 135 L Potassium 3.9 Chloride 104 Carbon Dioxide 25.0 Anion Gap 6 BUN 12 Creatinine 1.08 Estim Creat Clear Calc 77.28 Est GFR (MDRD) Af Amer 91 Est GFR (MDRD) Non-Af 75 BUN/Creatinine Ratio 11.1 Glucose 105 Lactic Acid 1.4 Calcium 9.2 Total Bilirubin 0.50 AST 19 ALT 30 Alkaline Phosphatase 91 C-React Prot Ext Range 33.10 H Total Protein 7.0 Albumin 3.2 Globulin 3.8 Albumin/Globulin Ratio 0.8 L - Medical Decision Making The patient presents with worsening foot infection. He was already debrided by podiatry who had concern for deep space infection given the purulence. Metabolic work-up was pursued and is relatively unremarkable. As the patient is on significant immunosuppressants with worsening infection, I do feel that he is going to require hospitalization. He was started on broad-spectrum antibiotics. The patient was discussed with the hospitalist who agrees with plan of care. Impression 1. Left foot infection with cellulitis ED Disposition - Plan for ED Patient: Disposition: Acute Care Hospital [facility]
--- NOTE | 2020-07-20 17:06 | CON.PCM_ITS ---
Problem List (1) Abscess of left foot Status: Acute (2) Cellulitis with lymphangitis Status: Acute (3) Foot ulcer, left Status: Acute Qualifiers: Non-pressure ulcer stage: limited to breakdown of skin Qualified Code(s): L97.521 - Non-pressure chronic ulcer of other part of left foot limited to breakdown of skin Reason for Consult Date of Consultation: 07/20/20 Reason for Consultation: left foot wound History of Present Illness: The patient is a 54 year old M [] Past Medical History Medical History: Medical History (Last Updated 07/09/20 @ 22:[address] Zachary Jean MD) History of end stage renal disease Z87.448 Allergies doxazosin Adverse Reaction (Verified 07/20/20 16:38) Rash doxycycline Adverse Reaction (Verified 07/20/20 16:38) Rash Penicillins Adverse Reaction (Verified 07/20/20 16:38) Rash Home Medications: Ambulatory Orders Medication Instructions Recorded Mycophenolate Mofetil [Cellcept] 500 mg PO BID 07/09/20 Tacrolimus Anhydrous [Prograf] 2 mg PO QHS 07/10/20 Tacrolimus Anhydrous [Prograf] 3 mg PO DAILY 07/10/20 Surgical History: Surgical History (Last Updated 07/09/20 @ 22:[address] Zachary Jean MD) Kidney transplant recipient Z94.0 Pancreas transplanted Z94.83 Surgical History: - - Eye laser surgery Smoking Status: Never smoker - *Family History Maternal History Items: Diabetes, - - Parkinson's disease Paternal History Items: COPD, Diabetes Review of Systems Constitutional: Denies: Chills, Fever Cardiovascular: Reports: Edema. Denies: Chest Pain Respiratory: Denies: Cough, Shortness of Breath Skin: Reports: Wounds - left foot Neurological: Reports: Tingling. Denies: Numbness Patient Problems: Active and Suspected Problems (Last Updated 07/09/20 @ 22:[address] Zachary Jean MD) Cellulitis with lymphangitis (Acute) Foot ulcer, left (Acute) Abscess of left foot (Acute) Subjective: Patient is a 54 year old male who presents to clinic today for follow up from hospital stay. Patient was released from the hospital last Friday with 5 days worth of clindamycin . Patient was admitted for left leg cellulitis. Patient was unsure if he stepped on anything. Patient at that time was noted to have a callus to plantar forefoot and Podiatry was consulted to assess if this could be source of cellulitis. Callus was debrided with no underlying ulceration, drainage, puncture wound, nor fluctuance noted at the time. Patient reports foot became red and swollen starting Friday. Since Friday swelling has improved but foot has gotten more red. Patient denies any pain to the foot. He also denies N/F/V/C/CP/SOB/streaking/purulence/drainage. Patient states he is no longer diabetic after his pancreas and kidney transplant. He also is no longer in renal failure. 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 Patient was sent to the ED from the supervisor [employer] office for further work up of ulceration. - Physical Exam Vitals/I&O's: Vital Signs Temp Pulse Resp BP Pulse Ox 97.9 F 91 18 140/66 H 99 07/20/20 16:36 07/20/20 16:36 07/20/20 16:36 07/20/20 16:36 07/20/20 16:36 Oxygen Delivery Method Room Air Weight: 84.368 kg Body Mass Index (BMI) 27.4 General: Alert, Oriented x3 HEENT: Atraumatic Extremities: No clubbing, No cyanosis, Capillary Refill Less than 3 Seconds, No Calf Tenderness, Diminished Peripheral Pulses, Edema, Tenderness, - - left arm partial amputation Skin: Ulcer/ Wound - left foot plantar blister upon deroofing was noted to have underlying ulceration with purulent drainage, culture obtained. Wound goes up into 1st webspace, some probing noted, fibrotic base, pain to palpation, wound measures 5cmx5.5cmx superficial with central aspect deeper measuring 1x1.5x0.2cm Musculoskeletal: Muscle Wasting Neurological: Neuro grossly intact, Sensory exam intact to light touch and pain - left foot missing 2 locations as tested with a semmes juhi monofiliament full vibratory sensation Psych/Mental Status: Normal Affect, Appropriate Assessment/Plan All Active Problems (Last Updated 07/09/20 @ 22:[address] Zachary Jean MD) Cellulitis with lymphangitis (Acute) Foot ulcer, left (Acute) Abscess of left foot (Acute) celluliltis left foot ulceration left foot abscess left foot Patient seen and examined with Sister present in office Blister was deroofed in office with underlying ulceration and purulent drainage expressed from probing area of ulceration Purulent drainage expressed in office and cultured. Aerobic culture sent to [facility] for processing Patient was sent to ED for further work up MRI suggested as there is concern for deeper abscess XR from previous admission showed no foreign body Potential need for surgery, possibly Friday, recommend NPO for friday at this time Discussed with patient possibility of need for surgery depending on MRI results. Discussed possibility of abscess, foreign body, or bone infection would be better assessed once MRI obtained. Discussed all risks benefits alternatives complications of surgery including but not limited to infection, delayed healing, nonhealing, need for further surgery or amputation. All questions were answered to patient satisfaction. Follow labs and cultures Podiatry will continue to follow Will follow MRI results for possible need for surgery tomorrow.
[2020-07-20 17:13] VITALS: BP 161/64; PULSE 83; RESP 16; TEMP 36.6; O2SAT 98
[2020-07-20 17:23] LABS: Absolute Lymphocyte Count 1.51 X10^3/uL (0.83-4.51); Absolute Neutrophil Count 6.5 X10^3/uL (2.0-7.7); Basophil# 0.05 X10^3/uL; Basophil% 0.6 % (0-1); Eosinophil# 0.03 X10^3/uL; Eosinophils% 0.3 % (0-5); Hematocrit 45.5 % (40-54); Hemoglobin 14.6 g/dL (13.0-16.5); Lymphocyte # 1.51 X10^3/ul (4.0); Lymphocyte % 16.9 % (19-41); Mean Corp Hgb Conc 32.1 g/dL (32-36); Mean Corpuscular Hgb 27.4 pg (27.0-32.0); Mean Corpuscular Volume 85.5 fL (80-94); Mean Platelet Vol. 10.9 fl (6.2-12.0); Monocyte# 0.77 X10^3/uL; Monocyte% 8.6 % (0-10); NRBC Flagged by Analyzer 0 % (0-5); Neutrophil # 6.47 X10^3/uL (2.7-7.7); Neutrophil % 72.7 % (47-70); Platelet Count 206 K/mm3 (150-450); RBC Distribution Width CV 12.8 % (11.6-14.6); RBC Distribution Width SD 39.5 fl (35.1-43.9); Red Blood Count 5.32 M/mm3 (4.6-6.2); White Blood Count 8.9 K/mm3 (4.4-11.0)
[2020-07-20 17:38] LABS: ALB/GLOB Ratio 0.8 RATIO (0.9-2.4); AST(SGOT) 19 U/L (15-37); Alanine Aminotransfer ALT/SGPT 30 U/L (16-61); Albumin, Serum 3.2 g/dL (3.2-5.0); Alkaline Phosphatase 91 U/L (45-117); Anion Gap 6 (5-15); BUN 12 mg/dL (7-18); BUN/Creat Ratio 11.1 RATIO (10-20); Calcium,Total 9.2 mg/dL (8.5-10.1); Chloride 104 mmol/L (98-107); Creatinine, Serum 1.08 mg/dL (0.70-1.30); EST Glomerular Filtration Rate 75 mL/min (>60); Est Glom Filt Rate - Afr Amer 91 mL/min (>60); Estimated Creatinine Clearance 77.28 ml/min; Globulin 3.8 g/dL (2.2-4.2); Glucose 105 mg/dL (74-106); Potassium 3.9 mmol/L (3.5-5.1); Sodium Level 135 mmol/L (136-145)
[2020-07-20 17:39] LABS: Erythrocyte Sedimentation Rate 42 mm/hr (0-20)
[2020-07-20 17:57] LABS: Lactic Acid 1.4 mmol/L (0.4-1.9)
[2020-07-20 17:58] VITALS: BP 136/55; PULSE 91; RESP 16; TEMP 36.7; O2SAT 98
[2020-07-20] MEDS: Ceftriaxone 1 GM/50 ML BAG IV (17:58)
[2020-07-20 18:06] VITALS: BMI 27.5
--- NOTE | 2020-07-20 18:08 | PCM.HP.STD ---
<Skip Bender - Last Filed: 07/20/20 18:08> Problem List (1) Cellulitis and abscess of foot Status: Acute (2) ESRD (end stage renal disease) Status: Chronic (3) Renal transplant recipient Status: Chronic (4) HTN (hypertension) Status: Chronic (5) Diabetes Status: Chronic (6) 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 Status: Chronic History of Present Illness Date of Admission: 07/20/20 Chief Complaint: worsening left foot wound The patient is a 54 year old M with a past medical history of end-stage renal disease secondary to hypertension and diabetes, status post renal transplant, status post pancreas transplant, who presented to the emergency room from podiatry office for worsening of his left foot wound. The patient was admitted to the hospital with a left foot cellulitis secondary to oxacillin resistant Staphylococcus auricularis, at that time treated with IV clindamycin with transition to 5 days of oral clindamycin at discharge. The patient completed his 5 days of antibiotics and has been performing daily dressing changes with the help of his sister. He followed up with his punch press feeder today who performed an in office debridement, deroofed the wound and noted a significant amount of purulent drainage. The patient notes that there is increased swelling, erythema, and pain. He denies any injury to the foot since his last admission. He has not felt sick in any other way-he denies fevers, chills, nausea, vomiting, diarrhea. He states he was doing well up until today. [] Past Medical History Past Medical History (Chronic Problems): Chronic Problems (Last Updated 07/09/20 @ 22:[address] 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 Zachary Jean MD) History of end stage renal disease Z87.448 Allergies doxazosin Adverse Reaction (Verified 07/20/20 16:38) Rash doxycycline Adverse Reaction (Verified 07/20/20 16:38) Rash Penicillins Adverse Reaction (Verified 07/20/20 16:38) Rash Home Medications: Ambulatory Orders Medication Instructions Recorded Mycophenolate Mofetil [Cellcept] 500 mg PO BID 07/09/20 Tacrolimus Anhydrous [Prograf] 2 mg PO DAILY@2000 07/10/20 Tacrolimus Anhydrous [Prograf] 3 mg PO DAILY@0800 07/10/20 Surgical History: Surgical History (Last Updated 07/09/20 @ 22:[address] Zachary Jean MD) Kidney transplant recipient Z94.0 Pancreas transplanted Z94.83 Surgical History: - - Eye laser surgery, pancreas transplant, renal transplant. Psychiatric History: No pertinent psych hx Lives: Alone Smoking Status: Never smoker Tobacco Use: Non-smoker Alcohol: None Drugs: None - *Family History Maternal History Items: Diabetes, - - Parkinson's disease Paternal History Items: COPD, Diabetes Review of Systems Constitutional: Denies: Chills, Fever, Weight Change, Fatigue HEENT: Denies: Head Aches, Sinus Congestion, Sinus Drainage Cardiovascular: Denies: Chest Pain, Heaviness, Light Headedness, Palpitations Respiratory: Denies: Cough, Shortness of Breath, Shortness of breath at rest, Sputum production Gastrointestinal: Denies: Abdominal Pain, Diarrhea, Nausea, Vomiting Genitourinary: Denies: Dysuria, Hesitancy, Urgency Musculoskeletal: Denies: Joint Pain, Joint Tenderness, Muscle pain Skin: Reports: Wounds - Worsening of left foot wound with increased erythema and swelling surrounding this area. Denies: Rash Neurological: Denies: Numbness, Tingling, Focal weakness Psychiatric: Denies: Anxiety, Depression, Homicidal Ideations, Suicidal Ideations Hematologic/ Lymphatic: Denies: Easy Bruising, Easy Bleeding VTE Information - Inpt Only VTE Present on Admission: No VTE Mechan Device Prophylaxis: None VTE Pharm Prophylaxis ordered?: Yes - Physical Exam Vitals/I&O's: Vital Signs Temp Pulse Resp BP Pulse Ox 98.1 F 91 16 136/55 H 98 07/20/20 17:58 07/20/20 17:58 07/20/20 17:58 07/20/20 17:58 07/20/20 17:58 Oxygen Delivery Method Room Air Weight: 186 lb Body Mass Index (BMI) 27.4 General: Alert, Oriented x3, Cooperative HEENT: Atraumatic, PERRLA, EOMI, Normocephalic Neck: Supple, No JVD, Negative Carotid Bruits Lungs: Clear to auscultation, Normal air movement Cardiovascular: Regular rate, No murmurs Abdomen: Bowel Sounds Present, Soft, Non Tender Extremities: No edema, Capillary Refill Less than 3 Seconds Skin: No rashes, No breakdown, - - Left foot with nonhealing wound with surrounding erythema and mild edema. Wound is located on the plantar aspect of the foot near the first and second toes. No drainage at this time. Bilateral toes with dystrophic nails, fungal changes, right foot with large callus on the plantar aspect Musculoskeletal: No Tenderness to Palpation of Joints or Extremities Neurological: Cranial nerves II-XII grossly intact Psych/Mental Status: Normal Affect, Appropriate, Alert and oriented to time, place, person, mood and affect Laboratory Results 07/20/20 17:10: WBC 8.9, RBC 5.32, Hgb 14.6, Hct 45.5, MCV 85.5, MCH 27.4, MCHC 32.1, RDW Std Deviation 39.5, RDW Coeff of Jairo 12.8, Plt Count 206, MPV 10.9, Immature Gran % (Auto) 0.900, Neut % (Auto) 72.7 H, Lymph % (Auto) 16.9 L, [place] % (Auto) 8.6, Eos % (Auto) 0.3, Baso % (Auto) 0.6, Absolute Neuts (auto) 6.5, Absolute Lymphs (auto) 1.51, Nucleated RBC % 0, ESR 42 H 07/20/20 17:10: Sodium 135 L, Potassium 3.9, Chloride 104, Carbon Dioxide 25.0, Anion Gap 6, BUN 12, Creatinine 1.08, Estim Creat Clear Calc 77.28, Est GFR (MDRD) Af Amer 91, Est GFR (MDRD) Non-Af 75, BUN/Creatinine Ratio 11.1, Glucose 105, Calcium 9.2, Total Bilirubin 0.50, AST 19, ALT 30, Alkaline Phosphatase 91, C-React Prot Ext Range 33.10 H, Total Protein 7.0, Albumin 3.2, Globulin 3.8, Albumin/Globulin Ratio 0.8 L 07/20/20 17:10: Lactic Acid 1.4 Current Medications Vancomycin HCl 1,250 mg/ (Sodium Chloride) 275 mls @ 167 mls/hr IV X1 ONE Stop: 07/20/20 19:23 Ceftriaxone Sodium (Rocephin) 1 gm in 50 mls @ 100 mls/hr IV X1 ONE Stop: 07/20/20 18:14 Last Admin: 07/20/20 17:58 Dose: 100 mls/hr Documented by: Assessment/Plan All Active Problems (Last Updated 07/09/20 @ 22:[address] Zachary Jean MD) Left forefoot ulcer (Acute) Left forefoot cellulitis (Acute) 1. Nonhealing wound left foot plantar area near 1st/2nd toes - recently here with Staph auricularis resistant to oxacillin. Repeat wound cx taken today with Dr. Garcia who deroofed the wound in the office today. Lactate pending. No fever/leukocytosis. Pt completed course of clindamycin IV to PO after last admission for the same. Consult podiatry. Start Vanc/cefazolin. Obtain MRI of the foot. Wound care consult. 2. ESRD 2/2 DM and HTN s/p renal transplant - renal function is good at this time. 3. DM s/p pancreas transplant - no longer on diabetic agents. 4. HTN - no longer on medications for this 5. s/p kidney/pancreas transplants - continue prograf/cellcept. Transplants were in 2006, pt states no issues since. DVT ppx: lovenox This patient was seen by Skip Bender PA-C under the supervision of Dr. Fung. <Ivy Fung - Last Filed: 07/20/20 18:36> History of Present Illness The patient is a 54 year old M [] Past Medical History Medical History: Medical History (Last Updated 07/09/20 @ 22:[address] Zachary Jean MD) History of end stage renal disease Z87.448 Allergies doxazosin Adverse Reaction (Verified 07/20/20 16:38) Rash doxycycline Adverse Reaction (Verified 07/20/20 16:38) Rash Penicillins Adverse Reaction (Verified 07/20/20 16:38) Rash Surgical History: Surgical History (Last Updated 07/09/20 @ 22:[address] Zachary Jean MD) Kidney transplant recipient Z94.0 Pancreas transplanted Z94.83 - Physical Exam Vitals/I&O's: Vital Signs Temp Pulse Resp BP Pulse Ox 98.1 F 91 16 136/55 H 98 07/20/20 17:58 07/20/20 17:58 07/20/20 17:58 07/20/20 17:58 07/20/20 17:58 Oxygen Delivery Method Room Air Weight: 186 lb Body Mass Index (BMI) 27.4 Laboratory Results 07/20/20 17:10: WBC 8.9, RBC 5.32, Hgb 14.6, Hct 45.5, MCV 85.5, MCH 27.4, MCHC 32.1, RDW Std Deviation 39.5, RDW Coeff of [place]airo 12.8, Plt Count 206, MPV 10.9, Immature Gran % (Auto) 0.900, Neut % (Auto) 72.7 H, Lymph % (Auto) 16.9 L, [place] % (Auto) 8.6, Eos % (Auto) 0.3, Baso % (Auto) 0.6, Absolute Neuts (auto) 6.5, Absolute Lymphs (auto) 1.51, Nucleated RBC % 0, ESR 42 H 07/20/20 17:10: Sodium 135 L, Potassium 3.9, Chloride 104, Carbon Dioxide 25.0, Anion Gap 6, BUN 12, Creatinine 1.08, Estim Creat Clear Calc 77.28, Est GFR (MDRD) Af Amer 91, Est GFR (MDRD) Non-Af 75, BUN/Creatinine Ratio 11.1, Glucose 105, Calcium 9.2, Total Bilirubin 0.50, AST 19, ALT 30, Alkaline Phosphatase 91, C-React Prot Ext Range 33.10 H, Total Protein 7.0, Albumin 3.2, Globulin 3.8, Albumin/Globulin Ratio 0.8 L 07/20/20 17:10: Lactic Acid 1.4 Current Medications Acetaminophen (Acetaminophen 325 Mg Tablet) 650 mg PO Q6H PRN PRN PRN Reason: Pain Score 1-10/Temp > 100.7 F Vancomycin HCl 1,250 mg/ (Sodium Chloride) 275 mls @ 167 mls/hr IV X1 ONE Stop: 07/20/20 19:23 Sodium Chloride () 1,000 mls @ 75 mls/hr IV .[id number] RADHA Stop: 07/21/20 20:54 Cefazolin Sodium () 1 gm in 50 mls @ 100 mls/hr IV Q8 RADHA Vancomycin HCl 750 mg/ Sodium (Chloride) 265 mls @ 250 mls/hr IV Q12H RADHA Mycophenolate Mofetil (Mycophenolate Mofetil 500 Mg Tablet) 500 mg PO BID RADHA Ondansetron HCl (Ondansetron 4 Mg/2 Ml Vial) 4 mg IV Q8H PRN PRN PRN Reason: NAUSEA/VOMITING Senna/Docusate Sodium (Senna/Docusate Sodium 1 Tablet) 2 tablet PO BID PRN PRN PRN Reason: Constipation Tacrolimus (Tacrolimus Anhydrous 1 Mg Capsule) 2 mg PO QHS RADHA Tacrolimus (Tacrolimus Anhydrous 1 Mg Capsule) 3 mg PO DAILY RADHA Zolpidem Tartrate (Zolpidem Tartrate 5 Mg Tablet) 5 mg PO QHS PRN PRN PRN Reason: INSOMNIA Assessment/Plan Hospitalist note: I am seeing this patient in conjunction with Skip Bender. I independently seen and examined the patient. History and physical and laboratory data reviewed and I concur with the above admission and treatment plan. Patient was sent to ER by his punch press feeder for worsening left foot wound infection and cellulitis. Patient was admitted recently for left foot cellulitis, was discharged on p.o. clindamycin which was completed. Patient reported increasing swelling and erythema of the left foot and he has been having purulent discharge. He had a history of kidney and pancreatic transplant he has been on immune suppressive agents. He has history of diabetes mellitus, status post pancreatic transplant and currently, blood sugar has been under control and he is not on any antidiabetic medications. Patient had a history of hypertension and he has been off antihypertensive medication since his kidney transplant. He denies fever or chills. He denies any other complaints. His vital signs are stable. His routine blood work was unremarkable. LFT was normal. ESR and CRP were elevated. Lactic acid was normal. Is being admitted for recurrent left foot cellulitis/nonhealing infected plantar ulcer of the left foot. - Physical Exam General: Alert, Oriented x3, Cooperative, No apparent distress. HEENT: Atraumatic, PERRLA, EOMI. Neck: Supple, No JVD, Negative Carotid Bruits, Trachea Midline, Thyroid Normal. Lungs: Clear to auscultation, Normal air movement, No rhonchi, No wheeze, No rales. Cardiovascular: Regular rate, Regular Rhythm, Normal S1, Normal S2, PMI Normal. Abdomen: Bowel Sounds Present, Soft, Non Tender, Non-Distended, No Hepato-splenomegaly. Extremities: No clubbing, No cyanosis, No edema Skin: No skin rash. Left foot: Mild erythema and swelling of the left forefoot. Nonhealing ulcer with surrounding erythema on the plantar aspect of the forefoot. Neurological: Cranial nerves are intact, neuro grossly intact Vital Signs are stable. Assessment and plan: #1 left forefoot plantar nonhealing/infected wound/left forefoot cellulitis: In context of recent admission for cellulitis that was treated with clindamycin, completed as outpatient. Previous wound culture reviewed. Routine blood work was unremarkable. No evidence of sepsis or severe sepsis. Lactic acid is normal. ESR and CRP were elevated. Wound culture repeated today at the podiatry office. Blood culture sent from ED. Plan: Admit to Med[facility] floor, start IV cefazolin and vancomycin, MRSA wound screen by DNA, IV fluids, Tylenol as needed, Zofran as needed, MRI left foot to rule out osteomyelitis, podiatry medicine consult, PT OT evaluation and treatment when appropriate. #2 other chronic medical problems: Stable, continue current medications above. This note was generated with [employer] dictation software. It may contain incorrect words, spelling, and punctuation that were not noted in checking the note before signing. Inpatient E&M: 95123 Init Hosp L2
--- NOTE | 2020-07-20 18:15 | MRI_ITS ---
ACR Level 3 findings have been noted. An addendum which confirms receipt of the report will follow. HISTORY: Left foot wound plantar surface of the forefoot since 07/09/2020. Debridement today. X-rays are available from July 09, 2020 Technique: Sagittal T1 and T2 fat sat, coronal T1 and T2 through the toes, and axial T2 through the toes were obtained. The only fat-saturated series the sagittal series. 181 images. Findings: Abnormal increased T2-weighted signal is present within the subcutaneous and myofascial tissues about the left foot and ankle from metatarsals from the tarsals to the phalanges. Deep to the proximal aspect of the phalanges, extending to the level of the metatarsophalangeal joints, but not necessarily extending into the joints, there is an area of indurated tissues. This area begins on the lateral aspect of the first metatarsal phalangeal joint, and extends to the lateral aspect of the third metatarsophalangeal joint. There appears to be some skin ulceration plantar to the second metatarsophalangeal joint. Abnormal increased T2-weighted signal consistent with marrow edema and osteomyelitis is present within the second proximal phalanx. Flexor tendons appear to be intact. The wound that is acutely postoperative by history has been debrided appears to be at the level of the ulcer, plantar to the second metatarsophalangeal joint. MRI/Lower Ext/No Jt/w/o IMPRESSION: Ulceration on the plantar surface of the foot at the level of the second metatarsophalangeal joint, likely the area that were has been debrided at the recent surgery. Focal abnormal area of edema and a small amount of fluid but without araceli abscess extending from the lateral aspect of the first metatarsophalangeal joint to the lateral aspect of the third metatarsal phalangeal joint consistent with the perhaps abscess or wound that was debrided. Diffuse myofascitis throughout the entire imaged area of the foot. Focal osteomyelitis on the plantar surface of the second proximal phalanx at 2046 Reported and signed by: Wade Mayes MD Electronically Signed: Wade Maeys MD at 20:45 EDT Tel , Service support ,
[2020-07-20 18:33] VITALS: BMI 27.5
[2020-07-20] MEDS: 0.9% Normal Saline 1,000 ML 75 ML IV (20:56)
[2020-07-20 21:47] VITALS: BMI 27.5
[2020-07-20 21:50] VITALS: BP 115/59; PULSE 82; RESP 16; TEMP 36.6; O2SAT 98
--- NOTE | 2020-07-20 21:56 | PCM.RX.CS ---
Consult Pharmacy has been consulted to manage selected antiobiotic: Vancomycin Type of Consult: New start Suspected Infection: Skin/Soft tissue Prior Doses of Antibiotics Received/Current Regimen: Medications Vancomycin HCl 1,250 mg/ (Sodium Chloride) 275 mls @ 167 mls/hr IV Q12H RADHA Discontinued medications Vancomycin HCl 1,250 mg/ (Sodium Chloride) 275 mls @ 167 mls/hr IV X1 ONE Stop: 07/20/20 19:23 Last Admin: 07/20/20 20:57 Dose: 167 mls/hr Labs: Sodium 135 mmol/L (136-145) L 07/20/20 17:10 Potassium 3.9 mmol/L (3.5-5.1) 07/20/20 17:10 Chloride 104 mmol/L (98-107) 07/20/20 17:10 Carbon Dioxide 25.0 mmol/L (21.0-32.0) 07/20/20 17:10 Anion Gap 6 (5-15) 07/20/20 17:10 BUN 12 mg/dL (7-18) 07/20/20 17:10 Creatinine 1.08 mg/dL (0.70-1.30) 07/20/20 17:10 Est GFR (MDRD) Af Amer 91 mL/min (>60) 07/20/20 17:10 Est GFR (MDRD) Non-Af 75 mL/min (>60) 07/20/20 17:10 BUN/Creatinine Ratio 11.1 RATIO (10-20) 07/20/20 17:10 Glucose 105 mg/dL (74-106) 07/20/20 17:10 Weight used for dosin.6 kg Estimated Creatinine Clearance: 77 Goal Trough: 15-20 mcg/mL Pharmacy Plan for Drug Dosing: Pharmacy Service will continue to monitor and adjust dosing as required. Follow-Up Labs: Trough Vancomycin Labs to be done on [date and time ordered]: 07/22/20 @0830
[2020-07-20] MEDS: Cefazolin 1 GM/50 ML BAG IV (23:12)
[2020-07-20 23:32] LABS: M R Staph aureus DNA By PCR Negative (Negative); Probe Check PASS; Specimen Processing Control PASS; Staph aureus DNA By PCR NEGATIVE (Negative)
[2020-07-21] VITALS (11 sets, daily range): BP systolic 100–121; BP diastolic 51–72; PULSE 73–91; RESP 16–18; TEMP 36.2–37.7; O2SAT 93–98
[2020-07-21] MEDS: Cefazolin 1 GM/50 ML BAG IV ×3 (05:22→23:19)
[2020-07-21] MEDS: Mycophenolate Mofetil 250 MG Capsule 500 MG PO ×2 (07:37→21:06)
[2020-07-21] MEDS: Tacrolimus Anhydrous 1 MG Capsule 3 MG PO (07:37)
--- NOTE | 2020-07-21 11:10 | BON_PTH ---
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 Chino Collado MD : 1965 BED: 1 DIS: 07/24/2020 SPEC #: [id number] RECD: 07/21/20 13:24 STATUS: IGLESIA REQ #: [id number] MICHAEL: 07/21/20 11:[address]: Aris Valdez DEPT: SURGICAL PATHOLOGY RECD BY: Jace Hayward ENTERED: 07/24/20 08:01 SP TYPE: Bone OTHR DR: MD Dr. Sherron Bolivar, DPM MD Dr. Rony Hayward MD Dr. William Lago, MD Tissues: A - Toe, NOS B - Bone of foot, NOS Procedures: Decalcification bone/plaque Special Stain Group I Surgery Specimen Level IV AFB Stain (control) GMS Stain (control) Comments: @ Ordering doctor for DEC edited from to DR.JWUNNI Turner by NGOZI at 07/24/20 0943 @ Ordering doctor for SUIII edited from to DR.JWUNNI Yue MELVIN at 07/24/20 0943 @ Submitting doctor edited from to DR.JWUNNI Yue MELVIN at 07/24/2043 HEADER OPERATION: Second toe amputation / debridement PRE-OP DIAGNOSIS: Left forefoot plantar nonhealing / infected wound / left forefoot cellulitis TISSUE SUBMITTED: A - Left second toe/metatarsal, B - Clearance fragment left foot MICROSCOPIC DIAGNOSIS A. Left second toe/metatarsal, amputation: Focal ulceration, acute inflammation and abscess formation. Special stains for acid fast bacilli and fungi are negative for organisms; matched controls are appropriate. Pieces of bone, negative for acute osteomyelitis. B. Clearance fragment left foot, biopsy: A piece of bone, negative for acute osteomyelitis. SJ:nacho 07/27/20 MICROSCOPIC DESCRIPTION Slides are reviewed. GROSS DESCRIPTION A - Received in fixative is one container labeled with the patient's name and designated left second toe/metatarsal. The specimen consists of a portion of toe measuring 5 x 1.6 x 1.5 cm. 1.5 cm of bone is projected beyond the cutaneous resection margin. The nail appears atrophic. Also present in the container are multiple detached pieces of skin and soft tissue measuring in aggregate 5 x 4 x 1.5 cm. The skin surface of the detached pieces shows a focal area of ulceration. No obvious ulceration is noted in the portion of toe. Also received present in the container are two pieces of bone measuring 1.5 x 1 x 0.5 cm and 1.5 x 1 x 1 cm. Unloading Checker sections are submitted in four cassettes as follows: 1 - area of ulceration in detached pieces of tissue, 2 & 3 - detached pieces of bone, 4 - bone from portion of toe. Cassettes 2 to 4 are submitted after decalcification. B - Received in fixative is one container labeled with the patient's name and designated clearance fragment left foot. The specimen consists of a piece of bone measuring 0.5 x 0.5 x 0.2 cm. The specimen is totally submitted in one cassette after decalcification. / JOSH:nacho 07/24/20 TC:2 CPT: 07159 x2, 55347 x2, 40453 x2
[2020-07-21] MEDS: Bupivacaine Mpf 0.5% 30 ML VIAL (12:16)
--- NOTE | 2020-07-21 12:32 | PCM.OPRPT ---
Report of Operation Date of Procedure: 07/21/20 Pre-Operative Diagnosis: Osteomyelitis, abscess left 2nd toe/foot Post-Operative Diagnosis: Same Surgery/Procedure Performed:: Debridement left 2nd toe/foot down to bone, left 2nd toe amputation spiritual care coordinator: yes - Dr. Hameed Type of Anesthesia:: General Estimated Blood Loss (mL): 5mL Description of Procedure: Indications: The patient is a 54 year old gentleman with hx of pancreas and kidney transplant on immunosuppression who has significant infection to the left forefoot. There is ulceration plantar base of 2nd toe, there is noted to be fluid to plantar central forefoot, as well as osteomyelitis to the base of the 2nd toe proximal phalanx on MRI. Patient has worsening infection despite antibiotics, he was readmitted for further workup and treatment. Due to the condition and findings we discussed debridement w/ amputation of the left 2nd toe - reviewed debridement consistent of removing all of the infected tissue including soft tissue and bone from the left foot. he elected to proceed with surgical debridement/amputation as discussed. This was discussed with him in detail, reviewed the possible benefits vs risks. He were advised the risks include, but are not limited to pain, further infections, need for further surgery, nonhealing, delay healing, scarring, poor cosmetic result, numbness, weakness, loss of function, complex regional pain syndrome, blood clots, loss of limb, loss of life. Per patient's request I did speak with and reviewed this with his sister Mitzi. Patient and snehal's sister relates this infection really developed fast. Patient and his sister expressed understanding and agreement, and able to repeat back, all questions were answered. The consent form was reviewed and it was freely signed. No guaranties were given nor implied. Operative Procedure: The patient was brought into the operating room, and was place on the operating room table in the supine position. He was carefully secured to the operating room table with a safely belt around his waist. A time out was performed, the patient was properly identified and the surgical plan was confirmed. A well padded pneumatic tourniquet was placed around the left ankle. Also per patient's request the toenails were debrided prior to the surgery, they were severely elongated, thickened, dystrophic, yellow with subungual debris 1,2,3,4,5 bilateral. The toenails 1,2,3,4,5 bilateral were debrided using a nail nipper, removing bulk, this was done w/out incident. The patient received general anesthesia per the anesthesia team. The left foot was scrubbed, prepped and draped in the usual aseptic fashion. Of note he was already on IV antibiotic therapy. The left foot was exsanguinated via elevation, and the left ankle pneumatic tourniquet was inflated to 250mmHg. There was noted to be an abscess to the central plantar forefoot with associated deep ulceration down to bone and fascia/muscle with draining purulent drainage, maloder, cellulitis and edema. The infected area measured ~3cm x 4cm and deep into the foot down to bone. Using a 15 scalpel blade the ulceration and abscess was debrided in excisional fashion removing all nonviable, necrotic, infected soft tissue and bone from the site, this involved wide debridement of the soft tissue sub 2nd metatarsal phalangeal joint extending into the 1st and 3rd intermetatarsal spaces plantarly, this also involved removing the entire 2nd toe to the level of the 2nd metatarsal phalangeal joint. The base of the proximal phalanx of the 2nd toe was vega, soft and unhealthy appearing consistent with osteomyelitis. The debrided tissue was sent to pathology, and a deep bone culture from the base of the 2nd toe was obtained and sent to microbiology. Due to the extensive nature of the associated soft tissue infection which required wide debridement the 2nd metatarsal head was sticking out so it was resected using a powered sagittal saw. This bone did appear to be healthy and viable. It was noted to be hard, white and did not appear infected. A clearance fragment was obtained from the 2nd metatarsal head and sent to microbiology and pathology as specimen. The site was flushed out with copious amounts of normal saline solution. All remaining tissues appeared to be healthy and viable, free of any infection. A flap was created with the remaining viable skin using a 15 blade, the skin edges were brought together and were reapproximated using 3-0 Prolene however a large defect remained due to the need for wide debridement on the plantar central forefoot. The pneumatic tourniquet was deflated (total tourniquet time was 33 minutes), and there was immediate return of good vascular flow to the foot, with normal temperature gradient and CFT < 2 seconds to all remaining toes. A dressing was applied which consisted of 1/4 inch Iodoform, betadine soaked adaptic, 4x4 gauze, kerlix and mary beth dressing. Patient tolerated the above procedure well with no complications. He was transported from the operating room to the recovery room in good condition. Post operative orders placed. Post operating instructions were reviewed with patient. Keep foot elevated, keep dressing foot clean, dry and intact, and no weightbearing to the foot. Patient will be followed as an inpatient. Post operative right foot xrays obtained in the recovery room which confirmed 2nd toe and met head removal, no evidence of complication or acute findings otherwise. Grafts/Implants Used: None - Complications None
--- NOTE | 2020-07-21 12:33 | ART_ITS ---
Reason For Study: ulcer Procedure A bilateral lower extremity continuous wave Doppler with analog waveform analysis,segmental pressures,and ankle brachial indexes without exercise. Left Segmental Pressures Left posterior tibial artery = 100mmHg. Left dorsalis pedis artery = 160mmHg. Left digit = 36 mmHg. The left dorsalis pedis waveforms are triphasic. The left posterior tibial artery waveforms are biphasic. Right Segmental Pressures Right brachial= 137mmHg. Right posterior tibial artery = 95mmHg. Right dorsalis pedis artery = 191mmHg. Right digit = 85 mmHg. The right dorsalis pedis waveforms are biphasic. The right posterior tibial artery waveforms are triphasic. Indices The right ankle brachial index by the posterior tibial artery is .69. The right ankle brachial index by the dorsalis pedis is 1.39. The right digital-brachial index is .62. The left ankle brachial index by the posterior tibial artery is .73. The left ankle brachial index by the dorsalis pedis is 1.17. The left digital-brachial index is .26. Interpretation Summary Biphasic and triphasic Doppler waveforms are noted at ankle level bilaterally. Pulse-volume recording waveform amplitudes are diminished at digital level on the left, but satisfactory at all other levels bilaterally. Resting ankle-brachial indices are normal bilaterally. The right digital- brachial index is mildly diminished. The left digital-brachial index is moderately to severely diminished. Arterial flow appears to be normal at ankle level bilaterally. There is evidence of mild, distal, small-vessel arterial occlusive disease at digital level on the right. There is evidence of [id number], distal, small-vessel arterial occlusive disease at digital level on the left. Ordering Physician: Aris Valdez Performed By: ALICIA MOCK RVKev
[2020-07-21 12:46] LABS: Bedside Glucose 89 mg/dL (70-110)
--- NOTE | 2020-07-21 13:06 | PN_ITS ---
Reason for Visit: left foot infection Subjective: Pt seen and examined post op. Doing well no issues. Pain controlled. No fever/chills. No nausea vomiting. Vitals/I&O's: Vital Signs Temp Pulse Resp BP Pulse Ox 97.9 F 79 16 121/69 H 94 07/21/20 12:55 07/21/20 12:55 07/21/20 12:55 07/21/20 12:55 07/21/20 12:55 Oxygen Delivery Method Room Air Weight: 186 lb 8 oz Body Mass Index (BMI) 27.5 Finger Stick Blood Glucose 89 Intake and Output for Last 24 Hours 07/19/20 07/20/20 07/21/20 23:59 23:59 23:59 Intake Total 421.25 / 421.25 750 / 750 Balance 421.25 / 421.25 750 / 750 General: Alert, Oriented x3, Cooperative HEENT: Atraumatic, PERRLA, EOMI, Normocephalic Neck: Supple, No JVD, Negative Carotid Bruits Lungs: Clear to auscultation, Normal air movement Cardiovascular: Regular rate, No murmurs Abdomen: Bowel Sounds Present, Soft, Non Tender Extremities: No edema, Capillary Refill Less than 3 Seconds Skin: No rashes, No breakdown Musculoskeletal: No Tenderness to Palpation of Joints or Extremities Neurological: Cranial nerves II-XII grossly intact Psych/Mental Status: Normal Affect, Appropriate, Alert and oriented to time, place, person, mood and affect Laboratory Results 07/20/20 17:10: WBC 8.9, RBC 5.32, Hgb 14.6, Hct 45.5, MCV 85.5, MCH 27.4, MCHC 32.1, RDW Std Deviation 39.5, RDW Coeff of Jairo 12.8, Plt Count 206, MPV 10.9, Immature Gran % (Auto) 0.900, Neut % (Auto) 72.7 H, Lymph % (Auto) 16.9 L, Lamb % (Auto) 8.6, Eos % (Auto) 0.3, Baso % (Auto) 0.6, Absolute Neuts (auto) 6.5, Absolute Lymphs (auto) 1.51, Nucleated RBC % 0, ESR 42 H 07/20/20 17:10: Sodium 135 L, Potassium 3.9, Chloride 104, Carbon Dioxide 25.0, Anion Gap 6, BUN 12, Creatinine 1.08, Estim Creat Clear Calc 77.28, Est GFR (MDRD) Af Amer 91, Est GFR (MDRD) Non-Af 75, BUN/Creatinine Ratio 11.1, Glucose 105, Calcium 9.2, Total Bilirubin 0.50, AST 19, ALT 30, Alkaline Phosphatase 91, C-React Prot Ext Range 33.10 H, Total Protein 7.0, Albumin 3.2, Globulin 3.8, Albumin/Globulin Ratio 0.8 L 07/20/20 17:10: Lactic Acid 1.4 07/20/20 21:50: S.aureus Protein A PCR NEGATIVE, MRSA (PCR) Negative 07/21/20 12:39: POC Glucose 89 Current Medications Acetaminophen (Acetaminophen 325 Mg Tablet) 650 mg PO Q6H PRN PRN PRN Reason: Pain Score 1-10/Temp > 100.7 F Sodium Chloride () 1,000 mls @ 75 mls/hr IV .[id number] [facility] Stop: 07/22/20 00:54 Last Infusion: 07/21/20 05:52 Dose: 75 mls/hr Documented by: Cefazolin Sodium () 1 gm in 50 mls @ 100 mls/hr IV Q8 [facility] Last Infusion: 07/21/20 05:52 Dose: Infused Documented by: Vancomycin IV Pharmacy to Dose (750 ea/ Sodium Chloride) 265 mls @ 250 mls/hr IV PRN PRN PRN Reason: PHARM TO DOSE Vancomycin HCl 1,250 mg/ (Sodium Chloride) 275 mls @ 167 mls/hr IV Q12H [facility] Last Infusion: 07/21/20 12:36 Dose: Infused Documented by: Mycophenolate Mofetil (Mycophenolate Mofetil 250 Mg Capsule) 500 mg PO BID [facility] Last Admin: 07/21/20 07:37 Dose: 500 mg Documented by: Nutritional Formula (Lactose Free) (Ensure Enlive 120 Ml Liquid) 120 ml PO 4X/DAY [facility] Last Admin: 07/21/20 10:07 Dose: Not Given Documented by: Ondansetron HCl (Ondansetron 4 Mg/2 Ml Vial) 4 mg IV Q8H PRN PRN PRN Reason: NAUSEA/VOMITING Senna/Docusate Sodium (Senna/Docusate Sodium 1 Tablet) 2 tablet PO BID PRN PRN PRN Reason: Constipation Sodium Chloride (0.9% Saline Lock 10 Ml Syringe) 10 - 40 ml IV UD PRN PRN Reason: SALINE FLUSH Tacrolimus (Tacrolimus Anhydrous 1 Mg Capsule) 2 mg PO QHS [facility] Last Admin: 07/20/20 22:08 Dose: Not Given Documented by: Tacrolimus (Tacrolimus Anhydrous 1 Mg Capsule) 3 mg PO DAILY [facility] Last Admin: 07/21/20 07:37 Dose: 3 mg Documented by: Zolpidem Tartrate (Zolpidem Tartrate 5 Mg Tablet) 5 mg PO QHS PRN PRN PRN Reason: INSOMNIA STROKE Vital Signs/Narrative: Vital Signs Temp Pulse Resp BP Pulse Ox 07/21/20 12:55 97.9 F 79 16 121/69 H 94 07/21/20 12:50 78 16 111/61 93 07/21/20 12:45 80 16 115/67 96 07/21/20 12:40 78 16 113/67 94 07/21/20 12:28 97.1 F L 85 16 121/72 H 94 Medical Necessity - Tobacco Use Smoking Status: Never smoker Tobacco Use: Non-smoker Assessment/Plan All Active Problems (Last Updated 07/09/20 @ 22:[address] Zachary Jean MD) Left forefoot ulcer (Acute) Left forefoot cellulitis (Acute) 1. Left foot osteomyelitis / myofascitis s/p debridement and left 2nd toe amputation POD#[address] Valdez. - Staph auricularus, failed clinda. MRI confirms dx. Pt went to OR today. Doing well post op. Consult ID. Continue Vanc/Cefazolin. Operative cultures sent. Follow repeat wound and blood cultures. 2. ESRD 2/2 DM and HTN s/p renal transplant - renal function is good at this time. 3. DM s/p pancreas transplant - no longer on diabetic agents. 4. HTN - no longer on medications for this 5. s/p kidney/pancreas transplants - continue prograf/cellcept. Transplants were in 2006, pt states no issues since. DVT ppx: SCDs This patient was seen by Skip Bender PA-C under the supervision of Dr. Houston
--- NOTE | 2020-07-21 13:35 | CASEMGMT ---
NIKKI LAZAR Face to Face with patient for initial transition planning/care coordination assessment. RN NAGI introduced self and role at [facility]. Patient lying in bed, alert and oriented, sister at bedside. Patient willing to participate in assessment and is able to answer all questions appropriately. Care providers, pharmacy, and demographics verified. Patient wishes to discharge to TCU at discharge for wound care and IV ATBs. NIKKI LAZAR updated SW Krystal Iyer. Patient states he has no further needs or concerns at this time. CM to follow for discharge planning needs that may arise. PCP: [facility] Specialists: José Miguel front man Preferred Pharmacy: [facility] Insurance: [employer] Prescription Benefit: yes Living Will/HPOA: none LNOK: sisters Living Arrangements: Patient lives alone in a ranch style home with no steps to enter the home. Patient states he was independent at home. Sister has been assisting with dressing changes. Transportation: sister DME/HHC: Patient states he has shower chair, cane, walker, wheelchair, grab bars at home. No previous HHC. Disposition Plan: Patient to discharge to TCU if able to accept. Jeri JANSEN, RN, CM
--- NOTE | 2020-07-21 13:43 | CASEMGMT ---
Addendum entered by Jeri Iyer 07/21/20 14:01: Pt updated. Original Note: Social Work Note SW received referral for TCU. SW placed a call to Karen in TCU and provided referral. Karen states as long as pt's IV antibiotics are not expensive, TCU should be able to accept pt Friday. Pt will need cultures and confirmation on IV antibiotics. Plan: TCU Friday pending costs of pt's IV antibiotics Jeri Iyer LODGE ATTENDANT, [employer] TECH
--- NOTE | 2020-07-21 14:00 | RAD_ITS ---
STUDY: X-RAY - LEFT FOOT CLINICAL: Male, 54 years old. Osteomyelitis, debridement, 2nd digit amputation TECHNIQUE: 3 view(s) of the foot. COMPARISON: 07/09/2020. FINDINGS: Normal talus, calcaneus, and tarsal bones. Normal visualized subtalar, talonavicular, calcaneocuboid, tarsal and tarsometatarsal articulations. Status post amputation of the second toe and head of the second metatarsal. Gas seen in the soft tissues consistent with recent surgery. Vascular calcification. Otherwise no significant change since the previous exam. RAD/Foot min 3 Views IMPRESSION: Status post amputation of the second toe. Electronically Signed: Jayme Bailey MD at 9:38 EDT Tel , Service support ,
[2020-07-21] MEDS: 0.9% Normal Saline 1,000 ML 75 ML IV (15:16)
--- NOTE | 2020-07-21 16:39 | CON.PCM_ITS ---
Problem List (1) Left forefoot ulcer Status: Acute Reason for Consult: infected ulcer Consulted by: Dr. Valdez History of Present Illness: The patient is a 54 year old M with kidney pancreas transplant in 2003 at [facility], on cellcept and tacro, no issues with rejection or transplant-related infection, presented today with worsening redness and ulceration of L 2nd toe. Admitted 07/09 with several days of pain and redness, cx with CoNS, discharged on clinda. Had new wound develop, saw Dr. Valdez, admitted and taken to OR for I&D and 2nd toe amp; clearance frag of met head sent. Now on vanc/cefazolin, feeling ok, no fever, no n/v/d. Full ROS performed and neg except as noted above. - Medical History Past Medical History (Chronic Problems): Chronic Problems (Last Updated 07/09/20 @ 22:[address] 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) Allergies/Adverse Reactions: Allergies doxazosin Adverse Reaction (Verified 07/20/20 16:38) Rash doxycycline Adverse Reaction (Verified 07/20/20 16:38) Rash Penicillins Adverse Reaction (Verified 07/20/20 16:38) Rash Home Medications: Ambulatory Orders Medication Instructions Recorded Mycophenolate Mofetil [Cellcept] 500 mg PO BID 07/09/20 Tacrolimus Anhydrous [Prograf] 2 mg PO DAILY@2000 07/10/20 Tacrolimus Anhydrous [Prograf] 3 mg PO DAILY@0800 07/10/20 - Social History Tobacco Use: non-smoker Vital Signs Temp Pulse Resp BP Pulse Ox 98.3 F 73 16 100/59 L 96 07/21/20 15:13 07/21/20 15:13 07/21/20 15:13 07/21/20 15:13 07/21/20 15:13 Oxygen Delivery Method Room Air Weight: 84.595 kg Body Mass Index (BMI) 27.5 Finger Stick Blood Glucose 89 Microbiology Past 72 Hours 07/21/20 12:00 Gram Stain - Final Tissue - Other 07/21/20 12:00 Gram Stain - Final Tissue - Toe Laboratory Tests Past 24 Hrs 07/20/20 07/20/20 07/20/20 17:10 17:10 17:10 WBC 8.9 RBC 5.32 Hgb 14.6 Hct 45.5 MCV 85.5 MCH 27.4 MCHC 32.1 RDW Std Deviation 39.5 RDW Coeff of Jario 12.8 Plt Count 206 MPV 10.9 Immature Gran % (Auto) 0.900 Neut % (Auto) 72.7 H Lymph % (Auto) 16.9 L [place] % (Auto) 8.6 Eos % (Auto) 0.3 Baso % (Auto) 0.6 Absolute Neuts (auto) 6.5 Absolute Lymphs (auto) 1.51 Nucleated RBC % 0 ESR 42 H Sodium 135 L Potassium 3.9 Chloride 104 Carbon Dioxide 25.0 Anion Gap 6 BUN 12 Creatinine 1.08 Estim Creat Clear Calc 77.28 Est GFR (MDRD) Af Amer 91 Est GFR (MDRD) Non-Af 75 BUN/Creatinine Ratio 11.1 Glucose 105 Lactic Acid 1.4 Calcium 9.2 Total Bilirubin 0.50 AST 19 ALT 30 Alkaline Phosphatase 91 C-React Prot Ext Range 33.10 H Total Protein 7.0 Albumin 3.2 Globulin 3.8 Albumin/Globulin Ratio 0.8 L S.aureus Protein A PCR MRSA (PCR) 07/20/20 21:50 WBC RBC Hgb Hct MCV MCH MCHC RDW Std Deviation RDW Coeff of Jairo Plt Count MPV Immature Gran % (Auto) Neut % (Auto) Lymph % (Auto) [place] % (Auto) Eos % (Auto) Baso % (Auto) Absolute Neuts (auto) Absolute Lymphs (auto) Nucleated RBC % ESR Sodium Potassium Chloride Carbon Dioxide Anion Gap BUN Creatinine Estim Creat Clear Calc Est GFR (MDRD) Af Amer Est GFR (MDRD) Non-Af BUN/Creatinine Ratio Glucose Lactic Acid Calcium Total Bilirubin AST ALT Alkaline Phosphatase C-React Prot Ext Range Total Protein Albumin Globulin Albumin/Globulin Ratio S.aureus Protein A PCR NEGATIVE MRSA (PCR) Negative - Other Studies Radiology: [] reviewed Other Studies: [] Route of nutrition/ use of supplements: [] Nutritional Intake: [] IV Site: [] Morton Catheter: [] - Physical Exam General: Alert, Oriented x3, Cooperative, No apparent distress HEENT: Atraumatic, PERRLA, EOMI Neck: Supple, No Nodes Lungs: Clear to auscultation, Normal air movement Cardiovascular: Regular rate, Regular Rhythm Abdomen: Soft, Non Tender, Non-Distended Extremities: No edema Skin: Incision - foot wrapped IV Site: Peripheral, without redness Musculoskeletal: No Tenderness to Palpation of Joints or Extremities Neurological: Cranial nerves II-XII grossly intact - Assessment/Plan Antibiotics: [] Assessment/Plan: [] L 2nd toe osteo with h/o kidney/pancreas transplant - recent wound cx with staph auricularis. Had been on clinda, now s/p OR 07/21/[address] Valdez for 2nd toe amp after MRI showed osteo. Cont vanc/cefazolin while cxs pending. Will follow, thank you
[2020-07-21] MEDS: Tacrolimus Anhydrous 1 MG Capsule 2 MG PO (21:06)
[2020-07-22 02:08] VITALS: BP 105/50; PULSE 85; RESP 18; TEMP 36.7; O2SAT 93
[2020-07-22] MEDS: Ondansetron 4 MG/2 ML Vial IV (02:18)
[2020-07-22] MEDS: Cefazolin 1 GM/50 ML BAG IV (05:27)
[2020-07-22 07:26] LABS: Absolute Lymphocyte Count 1.49 X10^3/uL (0.83-4.51); Absolute Neutrophil Count 4.5 X10^3/uL (2.0-7.7); Basophil# 0.04 X10^3/uL; Basophil% 0.6 % (0-1); Eosinophil# 0.05 X10^3/uL; Eosinophils% 0.7 % (0-5); Hematocrit 41.1 % (40-54); Lymphocyte # 1.49 X10^3/ul (4.0); Lymphocyte % 21.9 % (19-41); Mean Corp Hgb Conc 31.6 g/dL (32-36); Mean Corpuscular Hgb 27.4 pg (27.0-32.0); Mean Corpuscular Volume 86.7 fL (80-94); Mean Platelet Vol. 10.5 fl (6.2-12.0); Monocyte# 0.65 X10^3/uL; Monocyte% 9.6 % (0-10); NRBC Flagged by Analyzer 0 % (0-5); Neutrophil % 66.3 % (47-70); Platelet Count 200 K/mm3 (150-450); RBC Distribution Width SD 40.9 fl (35.1-43.9); Red Blood Count 4.74 M/mm3 (4.6-6.2); White Blood Count 6.8 K/mm3 (4.4-11.0)
[2020-07-22 07:50] VITALS: O2SAT 96
[2020-07-22 07:59] LABS: Anion Gap 5 (5-15); BUN 8 mg/dL (7-18); BUN/Creat Ratio 9.4 RATIO (10-20); Calcium,Total 8.6 mg/dL (8.5-10.1); Chloride 106 mmol/L (98-107); Creatinine, Serum 0.85 mg/dL (0.70-1.30); EST Glomerular Filtration Rate 100 mL/min (>60); Est Glom Filt Rate - Afr Amer 121 mL/min (>60); Estimated Creatinine Clearance 98.19 ml/min; Glucose 100 mg/dL (74-106); Sodium Level 137 mmol/L (136-145)
[2020-07-22] MEDS: Mycophenolate Mofetil 250 MG Capsule 500 MG PO ×2 (09:24→20:34)
[2020-07-22] MEDS: Tacrolimus Anhydrous 1 MG Capsule 3 MG PO (09:25)
[2020-07-22 09:32] LABS: Vancomycin, Trough Level 11.9 ug/mL (5.0-15.0)
--- NOTE | 2020-07-22 11:30 | PN_ITS ---
Patient Problems: Active and Suspected Problems (Last Updated 07/09/20 @ 22:[address] Zachary Jean MD) Left forefoot ulcer (Acute) Subjective: Patient was seen this morning for follow up on left foot, s/p debridement. Patient had 99.9 F temp overnight, now afebrile. Patient relates to very little to no pain to the foot. No complaints of chills or vomiting. He relates he did have some nausea. He has no other complaints. Patient's sister is present with him today in the room. - Physical Exam Vitals/I&O's: Vital Signs Temp Pulse Resp BP Pulse Ox 97.6 F L 83 18 117/74 98 07/22/20 09:35 07/22/20 09:35 07/22/20 09:35 07/22/20 09:35 07/22/20 09:35 Oxygen Delivery Method Room Air Weight: 84.595 kg Body Mass Index (BMI) 27.5 Finger Stick Blood Glucose 89 Intake and Output for Last 24 Hours 07/20/20 07/21/20 07/22/20 23:59 23:59 23:59 Intake Total 421.25 / 421.25 1853.75 / 1853.75 1510 / 1510 Output Total 800 / 800 Balance 421.25 / 421.25 1853.75 / 1853.75 710 / 710 General: Alert, Oriented x3, Cooperative, No apparent distress Extremities: No cyanosis, Capillary Refill Less than 3 Seconds, No Calf Tenderness, - - s/p debridement of the left 2nd toe and central forefoot - there is deep residual wound present to the plantar distal forefoot centrally at site of debridement down to bone, tissues do appear healthy and viable, no maloder, no necrosis, no purulence, there is some residual erythema but improved Musculoskeletal: Tenderness - There is some tenderness to the left forefoot but sensation significantly diminished. Psych/Mental Status: Normal Affect, Appropriate, Alert and oriented to time, place, person, mood and affect Microbiology Past 72 Hours 07/21/20 12:00 Tissue - Other Gram Stain - Final 07/21/20 12:00 Tissue - Other Wound Culture - Preliminary 07/21/20 12:00 Tissue - Toe Gram Stain - Final 07/21/20 12:00 Tissue - Toe Wound Culture - Preliminary Gram negative po Laboratory Results 07/21/20 12:39: POC Glucose 89 07/22/20 06:53: WBC 6.8, RBC 4.74, Hgb 13.0, Hct 41.1, MCV 86.7, MCH 27.4, MCHC 31.6 L, RDW Std Deviation 40.9, RDW Coeff of Jairo 13.0, Plt Count 200, MPV 10.5, Immature Gran % (Auto) 0.900, Neut % (Auto) 66.3, Lymph % (Auto) 21.9, [place] % (Auto) 9.6, Eos % (Auto) 0.7, Baso % (Auto) 0.6, Absolute Neuts (auto) 4.5, Absolute Lymphs (auto) 1.49, Nucleated RBC % 0 07/22/20 06:53: Sodium 137, Potassium 4.0, Chloride 106, Carbon Dioxide 26.0, Anion Gap 5, BUN 8, Creatinine 0.85, Estim Creat Clear Calc 98.19, Est GFR (MDRD) Af Amer 121, Est GFR (MDRD) Non-Af 100, BUN/Creatinine Ratio 9.4 L, Glucose 100, Calcium 8.6 07/22/20 08:50: Vancomycin Trough 11.9 Current Medications Acetaminophen (Acetaminophen 325 Mg Tablet) 650 mg PO Q6H PRN PRN PRN Reason: Pain Score 1-10/Temp > 100.7 F Vancomycin IV Pharmacy to Dose (750 ea/ Sodium Chloride) 265 mls @ 250 mls/hr IV PRN PRN PRN Reason: PHARM TO DOSE Vancomycin HCl 1,250 mg/ (Sodium Chloride) 275 mls @ 167 mls/hr IV Q12H [facility] Last Admin: 07/22/20 09:25 Dose: 167 mls/hr Documented by: Cefepime HCl 2 gm/ Sodium (Chloride) 100 mls @ 200 mls/hr IV Q8 [facility] Mycophenolate Mofetil (Mycophenolate Mofetil 250 Mg Capsule) 500 mg PO BID [facility] Last Admin: 07/22/20 09:24 Dose: 500 mg Documented by: Nutritional Formula (Lactose Free) (Ensure Enlive 120 Ml Liquid) 120 ml PO 4X/DAY [facility] Last Admin: 07/22/20 09:32 Dose: Not Given Documented by: Ondansetron HCl (Ondansetron 4 Mg/2 Ml Vial) 4 mg IV Q8H PRN PRN PRN Reason: NAUSEA/VOMITING Last Admin: 07/22/20 02:18 Dose: 4 mg Documented by: Senna/Docusate Sodium (Senna/Docusate Sodium 1 Tablet) 2 tablet PO BID PRN PRN PRN Reason: Constipation Sodium Chloride (0.9% Saline Lock 10 Ml Syringe) 10 - 40 ml IV UD PRN PRN Reason: SALINE FLUSH Tacrolimus (Tacrolimus Anhydrous 1 Mg Capsule) 2 mg PO QHS [facility] Last Admin: 07/21/20 21:06 Dose: 2 mg Documented by: Tacrolimus (Tacrolimus Anhydrous 1 Mg Capsule) 3 mg PO DAILY [facility] Last Admin: 07/22/20 09:25 Dose: 3 mg Documented by: Zolpidem Tartrate (Zolpidem Tartrate 5 Mg Tablet) 5 mg PO QHS PRN PRN PRN Reason: INSOMNIA Medical Necessity - Tobacco Use Smoking Status: Never smoker Tobacco Use: Non-smoker Assessment/Plan All Active Problems (Last Updated 07/09/20 @ 22:[address] Zachary Jean MD) Left forefoot ulcer (Acute) Left forefoot cellulitis (Acute) Deep abscess left foot, osteomyelitis left 2nd toe s/p debridement/amputation on 07/21/2020 Peripheral Neuropathy bilateral lower extremity Immunocompromised s/p kidney and pancreas transplants on immunosuppressive therapy Re-evaluation performed. Clinically the foot is improving. Flushed out with normal saline soln, applied saline wet to dry gauze, kerlix and mary beth dressing - change daily. Reviewed cultures which show gram positive po, final pending, patient on IV antibiotics - currently on Vanc and Cefepime, with Infectious Disease/Dr. Amato on consult. No weightbearing left foot, keep foot elevated. LEAS noninvasive LE arterial studies ordered for further evaluation of arterial flow. Podiatry will continue to follow closely.
--- NOTE | 2020-07-22 12:34 | PHA.PHARE_ITS ---
Consult Pharmacy has been consulted to manage selected antiobiotic: Vancomycin Type of Consult: Follow-up Labs: Sodium 137 mmol/L (136-145) 07/22/20 06:53 Potassium 4.0 mmol/L (3.5-5.1) 07/22/20 06:53 Chloride 106 mmol/L (98-107) 07/22/20 06:53 Carbon Dioxide 26.0 mmol/L (21.0-32.0) 07/22/20 06:53 Anion Gap 5 (5-15) 07/22/20 06:53 BUN 8 mg/dL (7-18) 07/22/20 06:53 Creatinine 0.85 mg/dL (0.70-1.30) 07/22/20 06:53 Est GFR (MDRD) Af Amer 121 mL/min (>60) 07/22/20 06:53 Est GFR (MDRD) Non-Af 100 mL/min (>60) 07/22/20 06:53 BUN/Creatinine Ratio 9.4 RATIO (-20) L 07/22/20 06:53 Glucose 100 mg/dL (74-106) 07/22/20 06:53 Vancomycin Trough 11.9 ug/mL (5.0-15.0) 07/22/20 08:50 Microbiology: Microbiology 07/21/20 12:00 Tissue - Other Gram Stain - Final 07/21/20 12:00 Tissue - Other Wound Culture - Preliminary 07/21/20 12:00 Tissue - Toe Gram Stain - Final 07/21/20 12:00 Tissue - Toe Wound Culture - Preliminary Gram negative po Goal Trough: 15-20 mcg/mL Pharmacy Plan for Drug Dosing: VANCOMYCIN LEVEL RECEIVED Current Vancomycin Dose: 1250mg IV Q12hr Number of Doses Received: 4 (3 prior to trough draw) Vancomycin Level: 11.9 Hours Since Last Dose: 11.5hr Renal Function: 0.85 Renal Function Trend: improvement since admit Lab/Micro: Cx = GNR. Hx resistant staph infection from Cx 07/10 Vancomycin Plan/Comments: Patient trough resulted in value of 11.2 (drawn appropriately). Will increase vancomycin dose slightly to 1.5g IV Q12hr. Pt has hx of kidney/pancreas transplant, so hesitant to increase dose more. Cx from 07/10 which grew staph resistant to PCN was pre-amputation. Pt now has possible source control. ID to evaluate pt on Friday per hospitalist service, cont abx until then. Trough prior to 4th dose of new regimen. Will start this evening, as pt already had this morning's dose. Pending Level: @0830 Pharmacy Service will continue to monitor and adjust dosing as required.
[2020-07-22 14:40] VITALS: BP 116/59; PULSE 76; RESP 18; TEMP 36.2; O2SAT 93
[2020-07-22] MEDS: 0.9% Saline Lock 10 ML Syringe IV ×2 (14:41→20:34)
--- NOTE | 2020-07-22 15:07 | PN_ITS ---
Patient Problems: Active and Suspected Problems (Last Updated 07/09/20 @ 22:[address] Zachary Jean MD) Left forefoot ulcer (Acute) Subjective: Patient was seen and examined today, his wound cultures resulted in a gram- negative po, I talked with infectious diseases briefly and change the patient's Rocephin to cefepime. Patient has no complaints of any foot pain, chills, or fever. Patient's white blood cell count today is normal, chemistry profile was unremarkable. - Physical Exam Vitals/I&O's: Vital Signs Temp Pulse Resp BP Pulse Ox 97.1 F L 76 18 116/59 L 93 07/22/20 14:40 07/22/20 14:40 07/22/20 14:40 07/22/20 14:40 07/22/20 14:40 Oxygen Delivery Method Room Air Weight: 84.595 kg Body Mass Index (BMI) 27.5 Finger Stick Blood Glucose 89 Intake and Output for Last 24 Hours 07/20/20 07/21/20 07/22/20 23:59 23:59 23:59 Intake Total 421.25 / 421.25 1853.75 / 1853.75 1788.58 / 1788.58 Output Total 800 / 800 Balance 421.25 / 421.25 1853.75 / 1853.75 988.58 / 988.58 General: Alert, Oriented x3, Cooperative, No apparent distress, Well developed, Well nourished HEENT: Atraumatic, PERRLA, EOMI, Normocephalic Oral: Moist Mucosa Neck: Supple, No JVD, Trachea Midline, Thyroid Normal Size and Texture Lungs: Clear to auscultation, Normal air movement, No rhonchi, No wheeze, No rales Cardiovascular: Regular rate, Regular Rhythm, Normal S1, Normal S2, No murmurs, PMI Normal, No rub noted Abdomen: Bowel Sounds Present, Soft, Non Tender, Non-Distended Extremities: No clubbing, No cyanosis, Capillary Refill Less than 3 Seconds Skin: No rashes Neurological: Cranial nerves II-XII grossly intact, Neuro grossly intact, Sensory exam intact to light touch and pain Psych/Mental Status: Normal Affect, Appropriate, Alert and oriented to time, place, person, mood and affect Microbiology Past 72 Hours 07/21/20 12:00 Tissue - Other Gram Stain - Final 07/21/20 12:00 Tissue - Other Wound Culture - Preliminary 07/21/20 12:00 Tissue - Toe Gram Stain - Final 07/21/20 12:00 Tissue - Toe Wound Culture - Preliminary Gram negative po Laboratory Results 07/22/20 06:53: WBC 6.8, RBC 4.74, Hgb 13.0, Hct 41.1, MCV 86.7, MCH 27.4, MCHC 31.6 L, RDW Std Deviation 40.9, RDW Coeff of Jairo 13.0, Plt Count 200, MPV 10.5, Immature Gran % (Auto) 0.900, Neut % (Auto) 66.3, Lymph % (Auto) 21.9, [place] % (Auto) 9.6, Eos % (Auto) 0.7, Baso % (Auto) 0.6, Absolute Neuts (auto) 4.5, Absolute Lymphs (auto) 1.49, Nucleated RBC % 0 07/22/20 06:53: Sodium 137, Potassium 4.0, Chloride 106, Carbon Dioxide 26.0, Anion Gap 5, BUN 8, Creatinine 0.85, Estim Creat Clear Calc 98.19, Est GFR (MDRD) Af Amer 121, Est GFR (MDRD) Non-Af 100, BUN/Creatinine Ratio 9.4 L, Glucose 100, Calcium 8.6 07/22/20 08:50: Vancomycin Trough 11.9 Current Medications Acetaminophen (Acetaminophen 325 Mg Tablet) 650 mg PO Q6H PRN PRN PRN Reason: Pain Score 1-10/Temp > 100.7 F Vancomycin IV Pharmacy to Dose (750 ea/ Sodium Chloride) 265 mls @ 250 mls/hr IV PRN PRN PRN Reason: PHARM TO DOSE Cefepime HCl 2 gm/ Sodium (Chloride) 100 mls @ 200 mls/hr IV Q8 [facility] Last Infusion: 07/22/20 15:06 Dose: 200 mls/hr Documented by: Vancomycin HCl 1,500 mg/ (Sodium Chloride) 530 mls @ 250 mls/hr IV Q12H [facility] Sodium Chloride () 250 mls @ 15 mls/hr IV .[id number] PRN PRN Reason: Additional IVPB Infusion Last Infusion: 07/22/20 15:03 Dose: 0 mls/hr Documented by: Mycophenolate Mofetil (Mycophenolate Mofetil 250 Mg Capsule) 500 mg PO BID [facility] Last Admin: 07/22/20 09:24 Dose: 500 mg Documented by: Nutritional Formula (Lactose Free) (Ensure Enlive 120 Ml Liquid) 120 ml PO 4X/DAY [facility] Last Admin: 07/22/20 14:44 Dose: Not Given Documented by: Ondansetron HCl (Ondansetron 4 Mg/2 Ml Vial) 4 mg IV Q8H PRN PRN PRN Reason: NAUSEA/VOMITING Last Admin: 07/22/20 02:18 Dose: 4 mg Documented by: Senna/Docusate Sodium (Senna/Docusate Sodium 1 Tablet) 2 tablet PO BID PRN PRN PRN Reason: Constipation Sodium Chloride (0.9% Saline Lock 10 Ml Syringe) 10 - 40 ml IV UD PRN PRN Reason: SALINE FLUSH Last Admin: 07/22/20 14:41 Dose: 10 ml Documented by: Tacrolimus (Tacrolimus Anhydrous 1 Mg Capsule) 2 mg PO QHS [facility] Last Admin: 07/21/20 21:06 Dose: 2 mg Documented by: Tacrolimus (Tacrolimus Anhydrous 1 Mg Capsule) 3 mg PO DAILY [facility] Last Admin: 07/22/20 09:25 Dose: 3 mg Documented by: Zolpidem Tartrate (Zolpidem Tartrate 5 Mg Tablet) 5 mg PO QHS PRN PRN PRN Reason: INSOMNIA Medical Necessity - Tobacco Use Smoking Status: Never smoker Tobacco Use: Non-smoker Assessment/Plan All Active Problems (Last Updated 07/09/20 @ 22:[address] Zachary Jean MD) Left forefoot ulcer (Acute) Left forefoot cellulitis (Acute) #1 Left second toe osteomyelitis-most recent wound culture shows gram-negative rods, patient remains on vancomycin and cefepime was added today, Ancef was discontinued. #2 deep abscess left foot-again cultures resulted today with gram-negative po #3 Essential hypertension-continue present medications #4 status post renal and pancreas [id number] immunosuppressant drugs #5 type 2 diabetes-diet controlled #6 neuropathy of the feet secondary to diabetes Inpatient E&M: [id number] [facility] [place] [facility] L2
[2020-07-22 17:38] VITALS: BP 129/67; PULSE 81; RESP 18; TEMP 36.7; O2SAT 97
[2020-07-22] MEDS: Tacrolimus Anhydrous 1 MG Capsule 2 MG PO (20:34)
[2020-07-22 22:51] VITALS: BP 103/57; PULSE 79; RESP 16; TEMP 37; O2SAT 95
[2020-07-23 04:50] VITALS: BP 122/64; PULSE 77; RESP 16; TEMP 37.1; O2SAT 99
[2020-07-23 07:45] VITALS: O2SAT 96
--- NOTE | 2020-07-23 07:50 | PN_ITS ---
Patient Problems: Active and Suspected Problems (Last Updated 07/09/20 @ 22:[address] Zachary Jean MD) Left forefoot ulcer (Acute) Subjective: Patient was seen this morning for follow up on left foot. He relates he is doing well, no complaints, resting comfortably in bed. Patient afebrile. No pain to foot. No fever, chills, nausea or vomiting. - Physical Exam Vitals/I&O's: Vital Signs Temp Pulse Resp BP Pulse Ox 98.7 F 77 16 122/64 H 99 07/23/20 04:50 07/23/20 04:50 07/23/20 04:50 07/23/20 04:50 07/23/20 04:50 Oxygen Delivery Method Room Air Weight: 84.595 kg Body Mass Index (BMI) 27.5 Finger Stick Blood Glucose 89 Intake and Output for Last 24 Hours 07/21/20 07/22/20 07/23/20 23:59 23:59 23:59 Intake Total 1853.75 / 1853.75 2977.25 / 2977.25 198 / 198 Output Total 1500 / 1500 700 / 700 Balance 1853.75 / 1853.75 1477.25 / 1477.25 -502 / -502 General: Alert, Oriented x3, Cooperative, No apparent distress Extremities: No cyanosis, Capillary Refill Less than 3 Seconds, No Calf Tenderness, - - s/p debridement of the left 2nd toe and central forefoot - there is deep residual wound present to the plantar distal forefoot centrally at site of debridement down to bone, tissues do appear healthy and viable, no maloder, no necrosis, no purulence, there is some residual erythema - improving Musculoskeletal: - - there is no POP or pain on ROM to the left foot Psych/Mental Status: Normal Affect, Appropriate, Alert and oriented to time, place, person, mood and affect Microbiology Past 72 Hours 07/21/20 12:00 Tissue - Toe Gram Stain - Final 07/21/20 12:00 Tissue - Toe Wound Culture - Final Serratia liquefaciens group 07/20/20 17:10 Blood Culture (Wb) - Right Hand Blood Culture - Preliminary No growth in 48 hours. 07/20/20 17:10 Blood Culture (Wb) - Right Forearm Blood Culture - Preliminary No growth in 48 hours. 07/21/20 12:00 Tissue - Other Gram Stain - Final 07/21/20 12:00 Tissue - Other Wound Culture - Preliminary Laboratory Results 07/22/20 06:53: Sodium 137, Potassium 4.0, Chloride 106, Carbon Dioxide 26.0, Anion Gap 5, BUN 8, Creatinine 0.85, Estim Creat Clear Calc 98.19, Est GFR (MDRD) Af Amer 121, Est GFR (MDRD) Non-Af 100, BUN/Creatinine Ratio 9.4 L, Glucose 100, Calcium 8.6 07/22/20 08:50: Vancomycin Trough 11.9 Current Medications Acetaminophen (Acetaminophen 325 Mg Tablet) 650 mg PO Q6H PRN PRN PRN Reason: Pain Score 1-10/Temp > 100.7 F Vancomycin IV Pharmacy to Dose (750 ea/ Sodium Chloride) 265 mls @ 250 mls/hr IV PRN PRN PRN Reason: PHARM TO DOSE Cefepime HCl 2 gm/ Sodium (Chloride) 100 mls @ 200 mls/hr IV Q8 [facility] Last Infusion: 07/23/20 06:27 Dose: Infused Documented by: Vancomycin HCl 1,500 mg/ (Sodium Chloride) 530 mls @ 250 mls/hr IV Q12H [facility] Last Infusion: 07/22/20 22:54 Dose: Infused Documented by: Sodium Chloride () 250 mls @ 15 mls/hr IV .[id number] PRN PRN Reason: Additional IVPB Infusion Last Infusion: 07/23/20 06:27 Dose: 15 mls/hr Documented by: Mycophenolate Mofetil (Mycophenolate Mofetil 250 Mg Capsule) 500 mg PO BID [facility] Last Admin: 07/22/20 20:34 Dose: 500 mg Documented by: Nutritional Formula (Lactose Free) (Ensure Enlive 120 Ml Liquid) 120 ml PO 4X/DAY [facility] Last Admin: 07/22/20 22:54 Dose: 120 ml Documented by: Ondansetron HCl (Ondansetron 4 Mg/2 Ml Vial) 4 mg IV Q8H PRN PRN PRN Reason: NAUSEA/VOMITING Last Admin: 07/22/20 02:18 Dose: 4 mg Documented by: Senna/Docusate Sodium (Senna/Docusate Sodium 1 Tablet) 2 tablet PO BID PRN PRN PRN Reason: Constipation Sodium Chloride (0.9% Saline Lock 10 Ml Syringe) 10 - 40 ml IV UD PRN PRN Reason: SALINE FLUSH Last Admin: 07/22/20 20:34 Dose: 10 ml Documented by: Tacrolimus (Tacrolimus Anhydrous 1 Mg Capsule) 2 mg PO QHS [facility] Last Admin: 07/22/20 20:34 Dose: 2 mg Documented by: Tacrolimus (Tacrolimus Anhydrous 1 Mg Capsule) 3 mg PO DAILY [facility] Last Admin: 07/22/20 09:25 Dose: 3 mg Documented by: Zolpidem Tartrate (Zolpidem Tartrate 5 Mg Tablet) 5 mg PO QHS PRN PRN PRN Reason: INSOMNIA Medical Necessity - Tobacco Use Smoking Status: Never smoker Tobacco Use: Non-smoker Assessment/Plan All Active Problems (Last Updated 07/09/20 @ 22:[address] Zachary Jean MD) Left forefoot ulcer (Acute) Left forefoot cellulitis (Acute) Deep abscess left foot, osteomyelitis left 2nd toe s/p debridement/amputation on 07/21/2020 Peripheral Neuropathy bilateral lower extremity Immunocompromised s/p kidney and pancreas transplants on immunosuppressive therapy Re-evaluation performed. Clinically the foot is improving. Flushed out with normal saline soln, applied saline wet to dry gauze, kerlix and mary beth dressing - change daily. Reviewed cultures which show gram positive po - serratia groug, final pending, patient on IV antibiotics - currently on Vanc and Cefepime, with Infectious D joshua/Dr. Amato on consult. No weightbearing left foot, keep foot elevated. LEAS noninvasive LE arterial studies ordered for further evaluation of arterial flow. Podiatry will continue to follow closely.
[2020-07-23] MEDS: Tacrolimus Anhydrous 1 MG Capsule 3 MG PO (08:41)
[2020-07-23] MEDS: Mycophenolate Mofetil 250 MG Capsule 500 MG PO ×2 (08:41→20:07)
[2020-07-23 08:50] VITALS: BP 132/70; PULSE 73; RESP 18; TEMP 37; O2SAT 96
--- NOTE | 2020-07-23 11:47 | PCM.PN.HOSP ---
Patient Problems: Active and Suspected Problems (Last Updated 07/09/20 @ 22:[address] Zachary Jean MD) Left forefoot ulcer (Acute) Reason for Visit: recurrent foot infection Subjective: No new issues. No problems overnight. In bed resting comfortably in bed NAD. No fever/chills. Pain well controlled. No SOB/cough/nausea/vomiting/diarrhea. Pt planning to go to TCU for IV abx and PTOT. Vitals/I&O's: Vital Signs Temp Pulse Resp BP Pulse Ox 98.6 F 73 18 132/70 H 96 07/23/20 08:50 07/23/20 08:50 07/23/20 08:50 07/23/20 08:50 07/23/20 08:50 Oxygen Delivery Method Room Air Weight: 186 lb 8 oz Body Mass Index (BMI) 27.5 Finger Stick Blood Glucose 89 Intake and Output for Last 24 Hours 07/21/20 07/22/20 07/23/20 23:59 23:59 23:59 Intake Total 1853.75 / 1853.75 2977.25 / 2977.25 712.42 / 712.42 Output Total 1500 / 1500 700 / 700 Balance 1853.75 / 1853.75 1477.25 / 1477.25 12.42 / 12.42 General: Alert, Oriented x3, Cooperative HEENT: Atraumatic, PERRLA, EOMI, Normocephalic Neck: Supple, No JVD, Negative Carotid Bruits Lungs: Clear to auscultation, Normal air movement Cardiovascular: Regular rate, No murmurs Abdomen: Bowel Sounds Present, Soft, Non Tender Extremities: No edema, Capillary Refill Less than 3 Seconds Skin: No rashes, No breakdown Musculoskeletal: No Tenderness to Palpation of Joints or Extremities Neurological: Cranial nerves II-XII grossly intact Psych/Mental Status: Normal Affect, Appropriate, Alert and oriented to time, place, person, mood and affect Microbiology Past 72 Hours 07/21/20 12:00 Tissue - Toe Gram Stain - Final 07/21/20 12:00 Tissue - Toe Wound Culture - Final Serratia liquefaciens group 07/21/20 12:00 Tissue - Toe Anaerobic Culture - Preliminary Checking for anaerobes, further studies to follow. 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 07/20/20 17:10 Blood Culture (Wb) - Right Hand Blood Culture - Preliminary No growth in 48 hours. 07/20/20 17:10 Blood Culture (Wb) - Right Forearm Blood Culture - Preliminary No growth in 48 hours. Current Medications Acetaminophen (Acetaminophen 325 Mg Tablet) 650 mg PO Q6H PRN PRN PRN Reason: Pain Score 1-10/Temp > 100.7 F Vancomycin IV Pharmacy to Dose (750 ea/ Sodium Chloride) 265 mls @ 250 mls/hr IV PRN PRN PRN Reason: PHARM TO DOSE Cefepime HCl 2 gm/ Sodium (Chloride) 100 mls @ 200 mls/hr IV Q8 RADHA Last Infusion: 07/23/20 06:27 Dose: Infused Documented by: Sodium Chloride () 250 mls @ 15 mls/hr IV .[id number] PRN PRN Reason: Additional IVPB Infusion Last Infusion: 07/23/20 10:43 Dose: 15 mls/hr Documented by: Mycophenolate Mofetil (Mycophenolate Mofetil 250 Mg Capsule) 500 mg PO BID [facility] Last Admin: 07/23/20 08:41 Dose: 500 mg Documented by: Nutritional Formula (Lactose Free) (Ensure Enlive 120 Ml Liquid) 120 ml PO 4X/DAY [facility] Last Admin: 07/23/20 08:46 Dose: 120 ml Documented by: Ondansetron HCl (Ondansetron 4 Mg/2 Ml Vial) 4 mg IV Q8H PRN PRN PRN Reason: NAUSEA/VOMITING Last Admin: 07/22/20 02:18 Dose: 4 mg Documented by: Senna/Docusate Sodium (Senna/Docusate Sodium 1 Tablet) 2 tablet PO BID PRN PRN PRN Reason: Constipation Sodium Chloride (0.9% Saline Lock 10 Ml Syringe) 10 - 40 ml IV UD PRN PRN Reason: SALINE FLUSH Last Admin: 07/22/20 20:34 Dose: 10 ml Documented by: Tacrolimus (Tacrolimus Anhydrous 1 Mg Capsule) 2 mg PO QHS [facility] Last Admin: 07/22/20 20:34 Dose: 2 mg Documented by: Tacrolimus (Tacrolimus Anhydrous 1 Mg Capsule) 3 mg PO DAILY [facility] Last Admin: 07/23/20 08:41 Dose: 3 mg Documented by: Zolpidem Tartrate (Zolpidem Tartrate 5 Mg Tablet) 5 mg PO QHS PRN PRN PRN Reason: INSOMNIA STROKE Vital Signs/Narrative: Vital Signs Temp Pulse Resp BP Pulse Ox 07/23/20 08:50 98.6 F 73 18 132/70 H 96 Medical Necessity - Tobacco Use Smoking Status: Never smoker Tobacco Use: Non-smoker Assessment/Plan All Active Problems (Last Updated 07/09/20 @ 22:[address] Zachary Jean MD) Left forefoot ulcer (Acute) Left forefoot cellulitis (Acute) 1. Left foot osteomyelitis / myofascitis s/p debridement and left 2nd toe amputation POD#[address] Valdez. - prior cx with Staph auricularus, failed clinda. MRI confirms dx. Doing well post op. ID following. Cx with serratia species resistant to cefazolin. Pt on Vanc/cefepime. 2. ESRD 2/2 DM and HTN s/p renal transplant - renal function is good at this time. 3. DM s/p pancreas transplant - no longer on diabetic agents. 4. HTN - no longer on medications for this 5. s/p kidney/pancreas transplants - continue prograf/cellcept. Transplants were in 2006, pt states no issues since. DVT ppx: SCDs DC planning: pt would like to go to TCU for IV abx and therapy. This patient was seen by Skip Bender PA-C under the supervision of Dr. Houston
[2020-07-23] MEDS: Acetaminophen 325 MG Tablet 650 MG PO (13:22)
[2020-07-23 14:02] VITALS: BP 122/65; PULSE 75; RESP 18; TEMP 36.8; O2SAT 96
[2020-07-23 20:00] VITALS: BP 108/53; PULSE 75; RESP 18; TEMP 36.4; O2SAT 97
[2020-07-23] MEDS: Tacrolimus Anhydrous 1 MG Capsule 2 MG PO (20:07)
[2020-07-24 03:00] VITALS: BP 116/70; PULSE 70; RESP 18; TEMP 36.6; O2SAT 96
[2020-07-24] MEDS: Mycophenolate Mofetil 250 MG Capsule 500 MG PO ×2 (08:46→18:25)
[2020-07-24] MEDS: Tacrolimus Anhydrous 1 MG Capsule 3 MG PO (08:47)
--- NOTE | 2020-07-24 10:33 | TREXTCA.CO_ITS ---
<Skip Bender - Last Filed: 07/24/20 10:33> - Diet 07/21/20 12:31 Diet: Regular - General Is pt able to select menu?: Yes - Routine Orders/Code Status Suppository Type: Dulcolax 10mg Suppository Frequency: Daily PRN Routine Lab Work: CBC - 5 days, BMP - 5 days Code Status: Full Code - Wound(s) left foot Wound Type: Surgical Incision left elias Wound Type: Abrasion - Therapies Weight Bearing: Non weight bearing Physical Therapy: Eval and Treat Occupational Therapy: Eval and Treat - Problem/Diagnosis (1) Osteomyelitis Status: Acute (2) Cellulitis and abscess of foot Status: Acute (3) ESRD (end stage renal disease) Status: Chronic (4) Renal transplant recipient Status: Chronic (5) HTN (hypertension) Status: Chronic (6) Diabetes Status: Chronic (7) 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 Status: Chronic - Allergies/Procedures Done in Hospital Allergies/Adverse Reactions: Allergies doxazosin Adverse Reaction (Verified 07/20/20 16:38) Rash doxycycline Adverse Reaction (Verified 07/20/20 16:38) Rash Penicillins Adverse Reaction (Verified 07/20/20 16:38) Rash Procedures: None - Type of Care/Length of Stay Estimated LOS: Convalescent Care Less Than 30 days Type of Care Needed: Skilled Rehab Potential: Fair Prognosis: Fair - Additional Orders/Day of Discharge Day of Discharge: 07/24/20 - Dietary and Speech Recommendations Dietitian Recommendations/Changes: When medically able, rec Regular No Added Salt [facility] - Follow Up Care Primary Care Physician: Tung Isaac MD [Primary Care Provider] - Please follow up with your Primary Care Physician in: 2 weeks Please Follow Up With: Aris Valdez DPM When: 1 week <Chino Collado - Last Filed: 07/24/20 16:19> - Diet 07/21/20 12:31 Diet: Regular - General Is pt able to select menu?: Yes - Therapies Weight Bearing: Non weight bearing Physical Therapy: Eval and Treat Occupational Therapy: Eval and Treat - Type of Care/Length of Stay Estimated LOS: Convalescent Care Less Than 30 days Type of Care Needed: Skilled Rehab Potential: Fair Prognosis: Fair - Follow Up Care Please Follow Up With: Rony Amato MD When: NEEDED for antibiotic issues
--- NOTE | 2020-07-24 10:49 | PHA.DC.MR ---
Pharmacy Service has performed discharge medication reconciliation for this patient. The patient's discharge medication list was reviewed for discrepancies and discrepancies were resolved. Home Medications Mycophenolate Mofetil [Cellcept] 500 mg PO BID 07/09/20 Tacrolimus Anhydrous [Prograf] 2 mg PO DAILY@199907/10/20 Tacrolimus Anhydrous [Prograf] 3 mg PO DAILY@0800 07/10/20 Acetaminophen [Tylenol Tablet] 650 mg PO Q6H PRN PRN tab 07/24/20 Ensure Enlive 120 ml PO 4X/DAY liquid 07/24/20 Oxycodone HCl 5 mg PO Q6H PRN PRN 3 Days #12 tab 07/24/20
--- NOTE | 2020-07-24 10:59 | PN_ITS ---
Patient Problems: Active and Suspected Problems (Last Updated 07/09/20 @ 22:[address] Zachary Jean MD) Cellulitis and abscess of foot (Acute) Osteomyelitis (Acute) Left forefoot ulcer (Acute) - Physical Exam Vitals/I&O's: Vital Signs Temp Pulse Resp BP Pulse Ox 98 F 70 18 116/70 96 07/24/20 03:00 07/24/20 03:00 07/24/20 03:00 07/24/20 03:00 07/24/20 03:00 Oxygen Delivery Method Room Air Weight: 84.595 kg Body Mass Index (BMI) 27.5 Finger Stick Blood Glucose 89 Intake and Output for Last 24 Hours 07/22/20 07/23/20 07/24/20 23:59 23:59 23:59 Intake Total 2977.25 / 3217.25 1566.92 / 1566.92 350 / 350 Output Total 1500 / 1500 700 / 700 450 / 450 Balance 1477.25 / 1717.25 866.92 / 866.92 -100 / -100 General: Alert, Oriented x3 HEENT: Atraumatic Extremities: No clubbing, No cyanosis, Capillary Refill Less than 3 Seconds, Diminished Peripheral Pulses, Edema, - - s/p debridement of the left 2nd toe and central forefoot - there is deep residual wound present to the plantar distal forefoot centrally at site of debridement down to bone, tissues appear healthy and viable, no maloder, no necrosis, no purulence, there is some erythema Skin: Ulcer/ Wound - sutures intact to proximal and distal wound with skin well copated. wound down to bone. Musculoskeletal: No Tenderness to Palpation of Joints or Extremities, - - left arm partial amputation, left 2nd toe amputation Neurological: - - decreased protective sensation Psych/Mental Status: Normal Affect, Appropriate, Alert and oriented to time, place, person, mood and affect Microbiology Past 72 Hours 07/21/20 12:00 Tissue - Other Gram Stain - Final 07/21/20 12:00 Tissue - Other Wound Culture - Final Citrobacter freundii 07/21/20 12:00 Tissue - Other Anaerobic Culture - Preliminary No growth in 48 hours. 07/21/20 12:00 Tissue - Toe Gram Stain - Final 07/21/20 12:00 Tissue - Toe Wound Culture - Final Serratia liquefaciens group 07/21/20 12:00 Tissue - Toe Anaerobic Culture - Preliminary Checking for anaerobes, further studies to follow. 07/20/20 17:10 Blood Culture (Wb) - Right Hand Blood Culture - Preliminary No growth in 48 hours. 07/20/20 17:10 Blood Culture (Wb) - Right Forearm Blood Culture - Preliminary No growth in 48 hours. Current Medications Acetaminophen (Acetaminophen 325 Mg Tablet) 650 mg PO Q6H PRN PRN PRN Reason: Pain Score 1-10/Temp > 100.7 F Last Admin: 07/23/20 13:22 Dose: 650 mg Documented by: Sodium Chloride () 250 mls @ 15 mls/hr IV .[id number] PRN PRN Reason: Additional IVPB Infusion Last Infusion: 07/24/20 09:00 Dose: Infused Documented by: Mycophenolate Mofetil (Mycophenolate Mofetil 250 Mg Capsule) 500 mg PO BID [facility] Last Admin: 07/24/20 08:46 Dose: 500 mg Documented by: Nutritional Formula (Lactose Free) (Ensure Enlive 120 Ml Liquid) 120 ml PO 4X/DAY [facility] Last Admin: 07/24/20 08:49 Dose: 120 ml Documented by: Ondansetron HCl (Ondansetron 4 Mg/2 Ml Vial) 4 mg IV Q8H PRN PRN PRN Reason: NAUSEA/VOMITING Last Admin: 07/22/20 02:18 Dose: 4 mg Documented by: Senna/Docusate Sodium (Senna/Docusate Sodium 1 Tablet) 2 tablet PO BID PRN PRN PRN Reason: Constipation Sodium Chloride (0.9% Saline Lock 10 Ml Syringe) 10 - 40 ml IV UD PRN PRN Reason: SALINE FLUSH Last Admin: 07/22/20 20:34 Dose: 10 ml Documented by: Tacrolimus (Tacrolimus Anhydrous 1 Mg Capsule) 2 mg PO QHS [facility] Last Admin: 07/23/20 20:07 Dose: 2 mg Documented by: Tacrolimus (Tacrolimus Anhydrous 1 Mg Capsule) 3 mg PO DAILY [facility] Last Admin: 07/24/20 08:47 Dose: 3 mg Documented by: Trimethoprim/Sulfamethoxazole (Sm[facility] Zolpidem Tartrate (Zolpidem Tartrate 5 Mg Tablet) 5 mg PO QHS PRN PRN PRN Reason: INSOMNIA Medical Necessity - Tobacco Use Smoking Status: Never smoker Tobacco Use: Non-smoker Assessment/Plan All Active Problems (Last Updated 07/09/20 @ 22:[address] Zachary Jean MD) Cellulitis and abscess of foot (Acute) Osteomyelitis (Acute) Left forefoot ulcer (Acute) Left forefoot cellulitis (Acute) Deep abscess left foot, osteomyelitis left 2nd toe s/p debridement/amputation on 07/21/[address] Valdez Peripheral Neuropathy bilateral lower extremity Immunocompromised s/p kidney and pancreas transplants on immunosuppressive therapy Patient seen and examined with sister present Clinically the foot is improving. No further purulence expressed Flushed out with normal saline soln, applied saline wet to dry gauze, kerlix and mary beth dressing. Will begin wound vac therapy, 150mmHg, every other day, continuous. Discussed this with wound nurse Reviewed cultures which show Citrobacter freundii, serratia liquefaciens group, patient on IV antibiotics - with Infectious Disease/Dr. Amato on consult. No weightbearing left foot, keep foot elevated. LEAS noninvasive LE arterial studies ordered for further evaluation of arterial flow. Will follow results All questions answered Podiatry will continue to follow closely.
[2020-07-24 11:02] VITALS: BP 126/73; PULSE 81; RESP 18; TEMP 36.7; O2SAT 96
[2020-07-24] MEDS: Smz/Tmp Ds Tablet 1 TABLET PO ×2 (11:04→18:25)
--- NOTE | 2020-07-24 14:02 | CASEMGMT ---
Social Work Note Per ID, pt will discharge on PO antibiotics. SW updated Karen in TCU. TCU is able to accept pt once pt's COVID test comes back negative. Plan: TCU today Jeri Iyer ETHANOL OPERATOR, BATCH ROOM TECHNICIAN
--- NOTE | 2020-07-24 14:26 | DS.PCM_ITS ---
<Skip Bender - Last Filed: 07/24/20 14:30> Discharge Date and Diagnosis - Problem List Patient Problems: Active and Suspected Problems (Last Updated 07/09/20 @ 22:[address] Zachary Jean MD) Cellulitis and abscess of foot (Acute) Osteomyelitis (Acute) Left forefoot ulcer (Acute) Date of Admission: 07/20/20 Date of Discharge: 07/24/20 - Primary Discharge Diagnosis Acute Problems: Active Problems (Last Updated 07/09/20 @ 22:[address] Zachary Jean MD) Cellulitis and abscess of foot (Acute) Osteomyelitis (Acute) Left forefoot ulcer (Acute) - Secondary Discharge Diagnosis Chronic Problems: Chronic Problems (Last Updated 07/09/20 @ 22:[address] 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 Focal abnormal area of edema and a small amount of fluid but without araceli abscess extending from the lateral aspect of the first metatarsophalangeal joint to the lateral aspect of the third metatarsal phalangeal joint consistent with the perhaps abscess or wound that was debrided. Diffuse myofascitis throughout the entire imaged area of the foot. Focal osteomyelitis on the plantar surface of the second proximal phalanx RAD/Foot min 3 Views IMPRESSION: Status post amputation of the second toe. Consultations 07/24/20 13:35 Consult: Onc/Wound/deputy assessor Routine Comment: Reason for Consult:: wound VAC left foot Podiatry : José Miguel Infectious Disease : [place] Operations: - - Debridement left 2nd toe and left 2nd toe amputation Procedures: None Summary of Care Provided: Hospital Course: The patient is a 54 year old M with pmhx of DMt2 and ESRD s/p Kidney and Pancreas transplant with [facility], on cellcept and prograf who presented to the ER with c/o worsening of his left foot wound. The patient had recently been admitted for an infection in the same location, treated with IV clinda and transitioned to oral clinda. The patient completed his course of Abx as an outpatient. At the time the patient grew Staph auricularis from his wound which was susceptible to clinda. He was seen at the podiatry office on the day of presentation, the wound was de-roofed, and it was highly purulent so he was sent to the ER. He was admitted for worsening of infection with possible deeper infection and placed on cefazolin and vanco. Cefazolin was transitioned to unasyn. He was admitted to the med surg floor. An MRI was obtained which showed osteo. Infectious disease was consulted. He was taken to the OR on 07/21 and an amputation was performed. He grew Serratia and Citrobacter. Prior to DC he went for an arterial study which is pending. A wound vac was placed. He was discharged to SNF (TCU) in stable condition for ongoing therapy. He will need follow up with podiatry in 1 week. Follow up with PCP in 2 weeks. Further antibiotic therapy as directed by infectious disease. This patient was seen by Skip Bender PA-C under the supervision of Dr. Collado [] Patient Problems: Active and Suspected Problems (Last Updated 07/09/20 @ 22:[address] Zachary Jean MD) Cellulitis and abscess of foot (Acute) Osteomyelitis (Acute) Left forefoot ulcer (Acute) - Physical Exam Vitals/I&O's: Vital Signs Temp Pulse Resp BP Pulse Ox 98.1 F 81 18 126/73 H 96 07/24/20 11:02 07/24/20 11:02 07/24/20 11:02 07/24/20 11:02 07/24/20 11:02 Oxygen Delivery Method Room Air Weight: 186 lb 8 oz Body Mass Index (BMI) 27.5 Finger Stick Blood Glucose 89 Intake and Output for Last 24 Hours 07/22/20 07/23/20 07/24/20 23:59 23:59 23:59 Intake Total 2977.25 / 3217.25 1566.92 / 1566.92 350 / 350 Output Total 1500 / 1500 700 / 700 450 / 450 Balance 1477.25 / 1717.25 866.92 / 866.92 -100 / -100 General: Alert, Oriented x3, Cooperative HEENT: Atraumatic, PERRLA, EOMI, Normocephalic Neck: Supple, No JVD, Negative Carotid Bruits Lungs: Clear to auscultation, Normal air movement Cardiovascular: Regular rate, No murmurs Abdomen: Bowel Sounds Present, Soft, Non Tender Extremities: No edema, Capillary Refill Less than 3 Seconds Skin: No rashes, No breakdown Musculoskeletal: No Tenderness to Palpation of Joints or Extremities Neurological: Cranial nerves II-XII grossly intact Psych/Mental Status: Normal Affect, Appropriate, Alert and oriented to time, place, person, mood and affect Microbiology Past 72 Hours 07/21/20 12:00 Tissue - Other Gram Stain - Final 07/21/20 12:00 Tissue - Other Wound Culture - Final Citrobacter freundii 07/21/20 12:00 Tissue - Other Anaerobic Culture - Preliminary No growth in 48 hours. 07/21/20 12:00 Tissue - Toe Gram Stain - Final 07/21/20 12:00 Tissue - Toe Wound Culture - Final Serratia liquefaciens group 07/21/20 12:00 Tissue - Toe Anaerobic Culture - Preliminary Checking for anaerobes, further studies to follow. 07/20/20 17:10 Blood Culture (Wb) - Right Hand Blood Culture - Preliminary No growth in 48 hours. 07/20/20 17:10 Blood Culture (Wb) - Right Forearm Blood Culture - Preliminary No growth in 48 hours. Laboratory Results 07/24/20 13:15: COVID-19 ([facility]) Pending Current Medications Acetaminophen (Acetaminophen 325 Mg Tablet) 650 mg PO Q6H PRN PRN PRN Reason: Pain Score 1-10/Temp > 100.7 F Last Admin: 07/23/20 13:22 Dose: 650 mg Documented by: Sodium Chloride () 250 mls @ 15 mls/hr IV .[id number] PRN PRN Reason: Additional IVPB Infusion Last Infusion: 07/24/20 09:00 Dose: Infused Documented by: Mycophenolate Mofetil (Mycophenolate Mofetil 250 Mg Capsule) 500 mg PO BID [facility] Last Admin: 07/24/20 08:46 Dose: 500 mg Documented by: Nutritional Formula (Lactose Free) (Ensure Enlive 120 Ml Liquid) 120 ml PO 4X/D AY [facility] Last Admin: 07/24/20 08:49 Dose: 120 ml Documented by: Ondansetron HCl (Ondansetron 4 Mg/2 Ml Vial) 4 mg IV Q8H PRN PRN PRN Reason: NAUSEA/VOMITING Last Admin: 07/22/20 02:18 Dose: 4 mg Documented by: Senna/Docusate Sodium (Senna/Docusate Sodium 1 Tablet) 2 tablet PO BID PRN PRN PRN Reason: Constipation Sodium Chloride (0.9% Saline Lock 10 Ml Syringe) 10 - 40 ml IV UD PRN PRN Reason: SALINE FLUSH Last Admin: 07/22/20 20:34 Dose: 10 ml Documented by: Tacrolimus (Tacrolimus Anhydrous 1 Mg Capsule) 2 mg PO QHS [facility] Last Admin: 07/23/20 20:07 Dose: 2 mg Documented by: Tacrolimus (Tacrolimus Anhydrous 1 Mg Capsule) 3 mg PO DAILY [facility] Last Admin: 07/24/20 08:47 Dose: 3 mg Documented by: Trimethoprim/Sulfamethoxazole (Smz/Tmp Ds Tablet) 1 tablet PO BIDCM [facility] Last Admin: 07/24/20 11:04 Dose: 1 tablet Documented by: Zolpidem Tartrate (Zolpidem Tartrate 5 Mg Tablet) 5 mg PO QHS PRN PRN PRN Reason: INSOMNIA Discharge Diet: Low fat/ Low Cholesterol, 1800 Calorie Control Diet, 2000 mg Sodium Diet Discharge Activity: Return to Normal Activity Home Medications: Medications to take at Discharge Mycophenolate Mofetil [Cellcept] 500 mg PO BID 07/09/20 Tacrolimus Anhydrous [Prograf] 2 mg PO DAILY@199907/10/20 Tacrolimus Anhydrous [Prograf] 3 mg PO DAILY@0800 07/10/20 Acetaminophen [Tylenol Tablet] 650 mg PO Q6H PRN PRN tab 07/24/20 Ensure Enlive 120 ml PO 4X/DAY liquid 07/24/20 Oxycodone HCl 5 mg PO Q6H PRN PRN 3 Days #12 tab 07/24/20 Smz/Tmp Ds [Bactrim Ds] 1 tab PO BIDCM #1 tab 07/24/20 Following Prescriptions Were Given to Patient: Smz/Tmp Ds [Bactrim Ds] 1 tab PO BIDCM #1 tab Oxycodone HCl 5 mg PO Q6H PRN PRN 3 Days #12 tab PRN Reason: Pain Score 6-10 Prescription Printed Primary Care Physician: Tung Isaac MD [Primary Care Provider] - Please follow up with your Primary Care Physician in: 2 weeks Please Follow Up With: Aris Valdez DPM When: 1 week Disposition: Nursing Home facility Minutes spent on discharge:: 35 Patient Condition:: Stable Medical Necessity - Tobacco Use Smoking Status: Never smoker Tobacco Use: Non-smoker Meaningful Use Info Meaningful Use Diagnoses (Choose all that apply): None applicable <Chino Collado - Last Filed: 07/24/20 16:29> Discharge Date and Diagnosis - Primary Discharge Diagnosis Acute Problems: Active Problems (Last Updated 07/09/20 @ 22:[address] Zachary Jean MD) Cellulitis and abscess of foot (Acute) Osteomyelitis (Acute) Left forefoot ulcer (Acute) - Secondary Discharge Diagnosis Chronic Problems: Chronic Problems (Last Updated 07/09/20 @ 22:[address] 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 I have independently interviewed and examined the patient and reviewed pertinent history, examination findings, laboratory and plan of management. I have reviewed the note and agree with the documented findings with the few additional points. In brief, patient is a 54 year old M [with history of type 2 diabetes mellitus and ESRD status post kidney and pancreas transplant on Prograf and CellCept was admitted for left second toe wound. Patient failed antibiotic in the past and required amputation. Patient had vascular Doppler shows right GERALDINE 1.39 and left GERALDINE 1.17 suggestive of distal calcification/sclerosis. Right posterior tibialis/brachial index is 0.69 and on left side 0.73 which is suggestive of mild peripheral arterial disease. While inpatient patient was treated with IV cefazolin and vancomycin. Patient had MRI showed osteomyelitis. ID was consulted. Patient had left second toe amputation. Wound culture grew Serratia and Citrobacter. ID recommended 6 weeks of Bactrim, stop date 09/01/2020. Weekly BMP while on Bactrim and follow-up with Dr. Amato Discharge medication reconciliation done. Discharge follow-up instructions co mpleted. Discharge process discussed with the patient and all questions were answered to patient's satisfaction. Plan is to discharge to TCU. Total time spent, exact 35 minutes on discharge meds reconciliation, examination, coordination of care with nurses and ancillary staff, review of imaging and blood test and discussion with the patient on follow-up instructions I have discussed my assessment with Skip CORBIN and orders have been reviewed. Objective: Seen and examined. Patient seems frustrated with the amputation. He said he was sent on p.o. antibiotic that does not heal his toe ulcer that resulted into amputation. I strongly advised to keep follow-up with the ballistics expert forensic. Physical exam General: Alert, Oriented x3, Cooperative HEENT: Atraumatic, PERRLA, EOMI, Normocephalic Oral: No Gingival or Mucosal Lesions/ Ulcerations Neck: Supple, No JVD, Negative Carotid Bruits Lungs: Air entry diminished in bilateral lung bases. No crepitation/rhonchi Cardiovascular: Regular rate, Regular Rhythm, Normal S1, Normal S2, No murmurs Abdomen: Bowel Sounds Present, Soft, Non Tender, Non-Distended : No renal angle tenderness. No suprapubic tenderness. Extremities: No edema, Capillary Refill Less than 3 Seconds Skin: Left second toe amputation with dressing. Neo wrap bandage on. Musculoskeletal: No Tenderness to Palpation of Joints or Extremities Neurological: Cranial nerves II-XII grossly intact, Deep Tendon Reflexes 2+/4 and Symmetrical, Neuro grossly intact Psych/Mental Status: Normal Affect, Appropriate. - Physical Exam Vitals/I&O's: Vital Signs Temp Pulse Resp BP Pulse Ox 98.3 F 77 18 105/73 95 07/24/20 15:59 07/24/20 15:59 07/24/20 15:59 07/24/20 15:59 07/24/20 15:59 Oxygen Delivery Method Room Air Weight: 186 lb 8 oz Body Mass Index (BMI) 27.5 Finger Stick Blood Glucose 89 Intake and Output for Last 24 Hours 07/22/20 07/23/20 07/24/20 23:59 23:59 23:59 Intake Total 2977.25 / 3217.25 1566.92 / 1566.92 350 / 350 Output Total 1500 / 1500 700 / 700 1450 / 1450 Balance 1477.25 / 1717.25 866.92 / 866.92 -1100 / -1100 Microbiology Past 72 Hours 07/21/20 12:00 Tissue - Other Gram Stain - Final 07/21/20 12:00 Tissue - Other Wound Culture - Final Citrobacter freundii 07/21/20 12:00 Tissue - Other Anaerobic Culture - Preliminary No growth in 48 hours. 07/21/20 12:00 Tissue - Toe Gram Stain - Final 07/21/20 12:00 Tissue - Toe Wound Culture - Final Serratia liquefaciens group 07/21/20 12:00 Tissue - Toe Anaerobic Culture - Preliminary Checking for anaerobes, further studies to follow. 07/20/20 17:10 Blood Culture (Wb) - Right Hand Blood Culture - Preliminary No growth in 48 hours. 07/20/20 17:10 Blood Culture (Wb) - Right Forearm Blood Culture - Preliminary No growth in 48 hours. Laboratory Results 07/24/20 13:15: COVID-19 ([facility]) Pending Current Medications Acetaminophen (Acetaminophen 325 Mg Tablet) 650 mg PO Q6H PRN PRN PRN Reason: Pain Score 1-10/Temp > 100.7 F Last Admin: 07/23/20 13:22 Dose: 650 mg Documented by: Sodium Chloride () 250 mls @ 15 mls/hr IV .[id number] PRN PRN Reason: Additional IVPB Infusion Last Infusion: 07/24/20 09:00 Dose: Infused Documented by: Mycophenolate Mofetil (Mycophenolate Mofetil 250 Mg Capsule) 500 mg PO BID [facility] Last Admin: 07/24/20 08:46 Dose: 500 mg Documented by: Nutritional Formula (Lactose Free) (Ensure Enlive 120 Ml Liquid) 120 ml PO 4X/DAY [facility] Last Admin: 07/24/20 16:03 Dose: 120 ml Documented by: Ondansetron HCl (Ondansetron 4 Mg/2 Ml Vial) 4 mg IV Q8H PRN PRN PRN Reason: NAUSEA/VOMITING Last Admin: 07/22/20 02:18 Dose: 4 mg Documented by: Senna/Docusate Sodium (Senna/Docusate Sodium 1 Tablet) 2 tablet PO BID PRN PRN PRN Reason: Constipation Sodium Chloride (0.9% Saline Lock 10 Ml Syringe) 10 - 40 ml IV UD PRN PRN Reason: SALINE FLUSH Last Admin: 07/22/20 20:34 Dose: 10 ml Documented by: Tacrolimus (Tacrolimus Anhydrous 1 Mg Capsule) 2 mg PO QHS [facility] Last Admin: 07/23/20 20:07 Dose: 2 mg Documented by: Tacrolimus (Tacrolimus Anhydrous 1 Mg Capsule) 3 mg PO DAILY [facility] Last Admin: 07/24/20 08:47 Dose: 3 mg Documented by: Trimethoprim/Sulfamethoxazole (Sm[facility]s [facility]t) [facility] Last Admin: 07/24/20 11:04 Dose: 1 tablet Documented by: Zolpidem Tartrate (Zolpidem Tartrate 5 Mg Tablet) 5 mg PO QHS PRN PRN PRN Reason: INSOMNIA Inpatient E&M: 48104 Disch Hosp
--- NOTE | 2020-07-24 15:14 | NURSING ---
wound photo: left foot (plantar view)
--- NOTE | 2020-07-24 15:15 | NURSING ---
wound photo: left foot (dorsal view)
--- NOTE | 2020-07-24 15:21 | PCM.PN.ID ---
Patient Problems: Active and Suspected Problems (Last Updated 07/09/20 @ 22:[address] Zachary Jean MD) Cellulitis and abscess of foot (Acute) Osteomyelitis (Acute) Left forefoot ulcer (Acute) Subjective: Feeling ok, mild soreness in foot, no fever, no n/v/d - Physical Exam Vitals/I&O's: Vital Signs Temp Pulse Resp BP Pulse Ox 98.1 F 81 18 126/73 H 96 07/24/20 11:02 07/24/20 11:02 07/24/20 11:02 07/24/20 11:02 07/24/20 11:02 Oxygen Delivery Method Room Air Weight: 84.595 kg Body Mass Index (BMI) 27.5 Finger Stick Blood Glucose 89 Intake and Output for Last 24 Hours 07/22/20 07/23/20 07/24/20 23:59 23:59 23:59 Intake Total 2977.25 / 3217.25 1566.92 / 1566.92 350 / 350 Output Total 1500 / 1500 700 / 700 450 / 450 Balance 1477.25 / 1717.25 866.92 / 866.92 -100 / -100 General: Alert, Cooperative, No apparent distress Lungs: Clear to auscultation, Normal air movement Cardiovascular: Regular rate, Regular Rhythm Abdomen: Soft, Non Tender, Non-Distended Skin: Ulcer/ Wound - foot wrapped Microbiology Past 72 Hours 07/21/20 12:00 Tissue - Other Gram Stain - Final 07/21/20 12:00 Tissue - Other Wound Culture - Final Citrobacter freundii 07/21/20 12:00 Tissue - Other Anaerobic Culture - Preliminary No growth in 48 hours. 07/21/20 12:00 Tissue - Toe Gram Stain - Final 07/21/20 12:00 Tissue - Toe Wound Culture - Final Serratia liquefaciens group 07/21/20 12:00 Tissue - Toe Anaerobic Culture - Preliminary Checking for anaerobes, further studies to follow. 07/20/20 17:10 Blood Culture (Wb) - Right Hand Blood Culture - Preliminary No growth in 48 hours. 07/20/20 17:10 Blood Culture (Wb) - Right Forearm Blood Culture - Preliminary No growth in 48 hours. Laboratory Results 07/24/20 13:15: COVID-19 ([facility]) Pending Current Medications Acetaminophen (Acetaminophen 325 Mg Tablet) 650 mg PO Q6H PRN PRN PRN Reason: Pain Score 1-10/Temp > 100.7 F Last Admin: 07/23/20 13:22 Dose: 650 mg Documented by: Sodium Chloride () 250 mls @ 15 mls/hr IV .[id number] PRN PRN Reason: Additional IVPB Infusion Last Infusion: 07/24/20 09:00 Dose: Infused Documented by: Mycophenolate Mofetil (Mycophenolate Mofetil 250 Mg Capsule) 500 mg PO BID [facility] Last Admin: 07/24/20 08:46 Dose: 500 mg Documented by: Nutritional Formula (Lactose Free) (Ensure Enlive 120 Ml Liquid) 120 ml PO 4X/DAY [facility] Last Admin: 07/24/20 08:49 Dose: 120 ml Documented by: Ondansetron HCl (Ondansetron 4 Mg/2 Ml Vial) 4 mg IV Q8H PRN PRN PRN Reason: NAUSEA/VOMITING Last Admin: 07/22/20 02:18 Dose: 4 mg Documented by: Senna/Docusate Sodium (Senna/Docusate Sodium 1 Tablet) 2 tablet PO BID PRN PRN PRN Reason: Constipation Sodium Chloride (0.9% Saline Lock 10 Ml Syringe) 10 - 40 ml IV UD PRN PRN Reason: SALINE FLUSH Last Admin: 07/22/20 20:34 Dose: 10 ml Documented by: Tacrolimus (Tacrolimus Anhydrous 1 Mg Capsule) 2 mg PO QHS [facility] Last Admin: 07/23/20 20:07 Dose: 2 mg Documented by: Tacrolimus (Tacrolimus Anhydrous 1 Mg Capsule) 3 mg PO DAILY [facility] Last Admin: 07/24/20 08:47 Dose: 3 mg Documented by: Trimethoprim/Sulfamethoxazole (Sm[facility]s [facility]t) [facility] Last Admin: 07/24/20 11:04 Dose: 1 tablet Documented by: Zolpidem Tartrate (Zolpidem Tartrate 5 Mg Tablet) 5 mg PO QHS PRN PRN PRN Reason: INSOMNIA Medical Necessity - Tobacco Use Smoking Status: Never smoker Tobacco Use: Non-smoker Route of nutrition/ use of supplements: [] Nutritional Intake: [] IV Site: [] Morton Catheter: [] - Assessment/Plan Antibiotics: [] Assessment/Plan: [] L 2nd toe osteo with h/o kidney/pancreas transplant - recent wound cx with MR-staptad auryamilis. Had been on clinda, now s/p OR 07/21/[address] Valdez for 2nd toe amp after MRI showed osteo. Wound cx with serratia/citro/raoultella. Surg cx with serratia and citro. On cefepime. Narrow abx to po bactrim DS, plan on 6 week course with stop date 09/01/20. Weekly bmp while on bactrim. Will follow, d/w supervisor case loading
[2020-07-24 15:59] VITALS: BP 105/73; PULSE 77; RESP 18; TEMP 36.8; O2SAT 95
--- NOTE | 2020-07-24 17:52 | NURSING ---
voice mail left for TCU to phone back to [facility] so nurse to nurse report can be given
[2020-07-24] MEDS: Tacrolimus Anhydrous 1 MG Capsule 2 MG PO (18:26)
== END 2020-07-24 19:40 | DRG 504 ==
LOC: ED 16:54 → MS3 20:40
PROVIDERS: Internal Medicine; Physician Assistant; Podiatrist; Admitting Provider Hospitalist; Emergency Provider Emergency Medicine; PCP Family Medicine; Visit Provider Internal Medicine
PROC: 0Y6S0Z0 Detachment at Left 2nd Toe, Complete, Open Approach (ICD-10-PCS; principal; 2020-07-21 10:55)
DX: M86.172 Other acute osteomyelitis, left ankle and foot (principal); Z94.0 Kidney transplant status; Z94.83 Pancreas transplant status; L02.612 Cutaneous abscess of left foot; L03.116 Cellulitis of left lower limb; L97.426 Non-pressure chronic ulcer of left heel and midfoot with bone involvement without evidence of necrosis; E11.22 Type 2 diabetes mellitus with diabetic chronic kidney disease; Z79.899 Other long term (current) drug therapy; E11.41 Type 2 diabetes mellitus with diabetic mononeuropathy; G57.93 Unspecified mononeuropathy of bilateral lower limbs; A48.8 Other specified bacterial diseases; I12.9 Hypertensive chronic kidney disease with stage 1 through stage 4 chronic kidney disease, or unspecified chronic kidney disease
CPT/HCPCS: 36415; 73630; 73718; 80048; 80053; 80202; 82962; 83605; 85025; 85652; 86140; 87015; 87040; 87070; 87075; 87077; 87102; 87116; 87176; 87186; 87205; 87206; 87635; 87640; 88304; 88305; 88311; 88312; 93923; 99281; 99285; J7030; J7040; J7050; A4216; J2405; U0003

== ENCOUNTER → 2020-07-20 | Outpatient (CLI) | payer MEDICAID, MEDICARE, SELFPAY ==
[2020-07-20 16:36] VITALS: BMI 27.4
[2020-07-21 14:05] LABS: M R Staph aureus DNA By PCR Negative (Negative); Probe Check PASS; Specimen Processing Control PASS; Staph aureus DNA By PCR NEGATIVE (Negative)
== END | disposition home or self-care (01) ==
PROVIDERS: PCP Family Medicine; Referring Provider Podiatrist Foot & Ankle Surgery; Visit Provider Podiatrist Foot & Ankle Surgery
DX: L02.612 Cutaneous abscess of left foot (principal); L03.116 Cellulitis of left lower limb; L97.529 Non-pressure chronic ulcer of other part of left foot with unspecified severity
CPT/HCPCS: 87070; 87205; 87640

== ENCOUNTER 2020-07-24 19:45 | Inpatient (IN) | payer MEDICARE, MEDICAID, SELFPAY ==
--- NOTE | 2020-07-24 19:45 | NURSING ---
late entry: pt arrived from med surg via bed, assisted to bed by EAR NOSE THROAT PHYSICIAN. Alert and oriented, pleasant.
--- NOTE | 2020-07-24 21:14 | HP.PCM_ITS ---
Problem List (1) Debility Status: Acute (2) Foot ulcer, left Status: Acute (3) Cellulitis of left foot Status: Acute (4) Foot osteomyelitis, left Status: Acute (5) ESRD (end stage renal disease) Status: Chronic (6) HTN (hypertension) Status: Chronic (7) Diabetes Status: Chronic History of Present Illness Date of Admission: 07/24/20 Chief Complaint: Here for rehabilitation, strengthening, prior to discharge home alone. 07/20/20 The patient is a 54 year old Male with below past medical history presented to [facility] Emergency Department with lower extremity injury. Increasing drainage from left foot, immunosuppressed secondary to kidney/pancreas transplant. Hospitalized 10 days prior for left foot infection, IV antibiotics given, discharge home on Clindamycin, finished clindamycin. Ulcer unroofed, deep purulent drainage. IV antibiotics given. 07/20/20 Admit to Hospital. Vancomycin/Cefazolin IV for left foot infection 07/20/20 MRI left foot showed osteomyelitis. 07/21/20 Podiatry performed debridement left 2nd toe/foot down to bone. Left 2nd toe amputated. 07/21/20 Infectious Disease continued Vancomycin/Cefazolin pending cultures. Wound cultures grew serratia/citro/raoultella. Surgical cultures grew serratia/citro. Antibiotics narrowed from Cefepime to Bactrim DS x 6 weeks treatment. Stop date 08/22/20. GERALDINE doppler pending. Wound VAC placed. 07/24/20 Admit to TCU with debility, here for rehabilitation, strengthening, wound care, prior to discharge home alone. Past Medical History Past Medical History (Chronic Problems): Chronic Problems (Last Updated 07/09/20 @ 22:[address] 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 Zachary Jean MD) History of end stage renal disease Z87.448 Allergies doxazosin Adverse Reaction (Verified 07/20/20 16:38) Rash doxycycline Adverse Reaction (Verified 07/20/20 16:38) Rash Penicillins Adverse Reaction (Verified 07/20/20 16:38) Rash Home Medications: Ambulatory Orders Medication Instructions Recorded Mycophenolate Mofetil [Cellcept] 500 mg PO BID 07/09/20 Tacrolimus Anhydrous [Prograf] 2 mg PO DAILY@2000 07/10/20 Tacrolimus Anhydrous [Prograf] 3 mg PO DAILY@0800 07/10/20 Acetaminophen [Tylenol Tablet] 650 mg PO Q6H PRN PRN tab 07/24/20 Ensure Enlive 120 ml PO 4X/DAY 07/24/20 Oxycodone HCl 5 mg PO Q6H PRN PRN 3 Days #12 tab 07/24/20 Smz/Tmp Ds [Bactrim Ds] 1 tab PO BIDCM 07/24/20 Surgical History: Surgical History (Last Updated 07/09/20 @ 22:[address] Zachary Jean MD) Kidney transplant recipient Z94.0 Pancreas transplanted Z94.83 Surgical History: - - Eye laser surgery, pancreas transplant, renal transplant. Psychiatric History: No pertinent psych hx Lives: Alone Smoking Status: Never smoker Alcohol: None Drugs: None - *Family History Maternal History Items: Diabetes, - - Parkinson's disease Paternal History Items: COPD, Diabetes Review of Systems Constitutional: Denies: Chills, Fever, Weight Change HEENT: Denies: Head Aches, Sinus Congestion, Sinus Drainage Cardiovascular: Denies: Chest Pain, Palpitations Respiratory: Denies: Cough, Shortness of breath at rest, Sputum production Gastrointestinal: Denies: Abdominal Pain, Nausea, Vomiting Genitourinary: Denies: Dysuria Musculoskeletal: Denies: Joint Pain, Joint Tenderness Skin: Denies: Rash, Wounds Neurological: Denies: Numbness, Tingling, Focal weakness Psychiatric: Denies: Anxiety, Depression, Homicidal Ideations, Suicidal Ideations Hematologic/ Lymphatic: Denies: Easy Bruising, Easy Bleeding VTE Information - Inpt Only VTE Present on Admission: No VTE Mechan Device Prophylaxis: Knee High JARET Hose VTE Pharm Prophylaxis ordered?: Yes Patient Problems: Active and Suspected Problems (Last Updated 07/09/20 @ 22:[address] Zachary Jean MD) Debility (Acute) Foot ulcer, left (Acute) Cellulitis of left foot (Acute) Foot osteomyelitis, left (Acute) - Physical Exam Vitals/I&O's: Body Mass Index (BMI) 27.5 Finger Stick Blood Glucose 89 General: Alert, Oriented x3, Cooperative HEENT: Atraumatic, PERRLA, EOMI, Normocephalic Neck: Supple, No JVD, Negative Carotid Bruits Lungs: Clear to auscultation, Normal air movement Cardiovascular: Regular rate, No murmurs Abdomen: Bowel Sounds Present, Soft, Non Tender Extremities: No edema, Capillary Refill Less than 3 Seconds, - - s/p left hand amputation, left foot TASH wrap, wound VAC. Skin: No rashes, No breakdown Musculoskeletal: No Tenderness to Palpation of Joints or Extremities Neurological: Cranial nerves II-XII grossly intact Psych/Mental Status: Normal Affect, Appropriate Current Medications Acetaminophen (Acetaminophen 325 Mg Tablet) 650 mg PO Q6H PRN PRN PRN Reason: Pain Score 1-10/Temp > 100.7 F Non-Formulary Medication (Mycophenolate Mofetil [Cellcept]) 500 mg PO 0800,2000 [facility] Non-Formulary Medication (Oxycodone Hcl) 5 mg PO Q6H PRN PRN PRN Reason: Pain Score 6-10 Nutritional Formula (Lactose Free) (Ensure Enlive 120 Ml Liquid) 120 ml PO 4X/DAY [facility] Tacrolimus (Tacrolimus Anhydrous 1 Mg Capsule) 2 mg PO DAILY@2000 [facility] Tacrolimus (Tacrolimus Anhydrous 1 Mg Capsule) 3 mg PO DAILY@0800 [facility] Trimethoprim/Sulfamethoxazole (Smz/Tmp Ds Tablet) tablet PO BIDCM [facility] Stop: 09/01/20 19:00 Tuberculin PPD (Tuberculin,Purif.Prot.Deriv. 50 Tu/Ml Vial) 5 tu ID X1 ONE Stop: 07/25/20 10:01 Tuberculin PPD (Tuberculin,Purif.Prot.Deriv. 50 Tu/Ml Vial) 5 tu ID X1 ONE Stop: 08/01/20 10:01 Assessment/Plan All Active Problems (Last Updated 07/09/20 @ 22:[address] Zachary Jean MD) Cellulitis and abscess of foot (Acute) Osteomyelitis (Acute) Debility (Acute) Foot ulcer, left (Acute) Cellulitis of left foot (Acute) Foot osteomyelitis, left (Acute) Left forefoot ulcer (Acute) Left forefoot cellulitis (Acute) 54 year old male with below past medical history hospitalized for left foot cellulitis, left foot osteomyelitis, underwent debridement/amputation left 2nd toe 10/16/20 per Podiatry, admitted to TCU with debility, here for rehabilitation, strengthening, wound care, prior to discharge home alone. * Debility - PT/OT. * Pain - Tylenol 1000MG Q6H PRN pain (1-3), oxycodone 5MG Q4H PRN pain (4-10). * Bowel - Miralax 17GM daily, Senna/colace 2 tablets BID, Dulcolax 10MG NM daily PRN. * Adult immunization - Administer Prevnar 13, Pneumovax 23, Fluzone as appropriate. * DVT prophylaxis - Lovenox 40MG SC daily. * Nutrition - Ensure Enlive 120ML 4x/day. * Kidney/pancreas transplant - Cellcept 500MG BID, Prograf 3MG AM, 2MG PM. * Left foot osteomyelitis status post 2nd toe amputation - Bactrim DS 1 tablet BID thru 09/01/20.
[2020-07-24 21:52] VITALS: BP 110/50; PULSE 80; RESP 16; TEMP 36.7; O2SAT 96
[2020-07-24 23:02] VITALS: BMI 27.0
[2020-07-24 23:09] VITALS: BMI 27.0
[2020-07-25 06:06] LABS: Absolute Lymphocyte Count 1.88 X10^3/uL (0.83-4.51); Absolute Neutrophil Count 3.6 X10^3/uL (2.0-7.7); Basophil# 0.06 X10^3/uL; Eosinophil# 0.08 X10^3/uL; Eosinophils% 1.3 % (0-5); Hematocrit 42.2 % (40-54); Hemoglobin 13.4 g/dL (13.0-16.5); Lymphocyte # 1.88 X10^3/ul (4.0); Lymphocyte % 29.9 % (19-41); Mean Corp Hgb Conc 31.8 g/dL (32-36); Mean Corpuscular Hgb 27.4 pg (27.0-32.0); Mean Corpuscular Volume 86.3 fL (80-94); Mean Platelet Vol. 10.3 fl (6.2-12.0); Monocyte# 0.61 X10^3/uL; Monocyte% 9.7 % (0-10); NRBC Flagged by Analyzer 0 % (0-5); Neutrophil % 57.1 % (47-70); Platelet Count 219 K/mm3 (150-450); RBC Distribution Width CV 12.9 % (11.6-14.6); RBC Distribution Width SD 40.4 fl (35.1-43.9); Red Blood Count 4.89 M/mm3 (4.6-6.2); White Blood Count 6.3 K/mm3 (4.4-11.0)
[2020-07-25 06:30] VITALS: BP 115/64; PULSE 70; RESP 18; TEMP 36.9; O2SAT 96
[2020-07-25 06:31] LABS: Anion Gap 6 (5-15); BUN 14 mg/dL (7-18); BUN/Creat Ratio 14.5 RATIO (10-20); Calcium,Total 9.1 mg/dL (8.5-10.1); Chloride 106 mmol/L (98-107); Creatinine, Serum 0.97 mg/dL (0.70-1.30); EST Glomerular Filtration Rate 85 mL/min (>60); Est Glom Filt Rate - Afr Amer 103 mL/min (>60); Estimated Creatinine Clearance 86.05 ml/min; Glucose 102 mg/dL (74-106); Potassium 4.1 mmol/L (3.5-5.1); Sodium Level 140 mmol/L (136-145)
[2020-07-25] MEDS: Enoxaparin 40 MG/0.4 ML Syringe SC (06:31)
[2020-07-25] MEDS: Tacrolimus Anhydrous 1 MG Capsule 3 MG PO (08:33)
[2020-07-25] MEDS: Mycophenolate Mofetil 250 MG Capsule 500 MG PO ×2 (08:33→21:36)
[2020-07-25] MEDS: Smz/Tmp Ds Tablet 1 TABLET PO ×2 (08:34→18:37)
[2020-07-25 08:51] VITALS: PULSE 82; RESP 16; O2SAT 95
[2020-07-25] MEDS: Tuberculin,Purif.prot.deriv. 50 TU/ML Vial 5 ML ID (09:29)
--- NOTE | 2020-07-25 12:09 | CON.PCM_ITS ---
Problem List (1) Cellulitis and abscess of foot Status: Acute (2) Osteomyelitis Status: Acute (3) Foot ulcer, left Status: Acute (4) Cellulitis of left foot Status: Acute (5) Left forefoot ulcer Status: Acute (6) Renal transplant recipient Status: Chronic (7) 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 Status: Chronic Reason for Consult Date of Consultation: 07/25/20 Reason for Consultation: wound care, surgical follow up History of Present Illness: The patient is a 54 year old M who was seen in [facility] for abscess/osteomyelitis/ulceration of left foot. Patient underwent 2nd toe amputa tion and debridement. Patient was started on wound vac therapy for continued wound management. Patient was transferred to TCU for continued care. Patient denies N/F/V/C/CP/SPB/streaking. Pain is controlled. Patient has a history of pancreas and kidney transplant and left arm partial amputation.[] Past Medical History Past Medical History (Chronic Problems): Chronic Problems (Last Updated 07/09/20 @ 22:[address] 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 Zachary Jean MD) History of end stage renal disease Z87.448 Allergies doxazosin Adverse Reaction (Verified 07/20/20 16:38) Rash doxycycline Adverse Reaction (Verified 07/20/20 16:38) Rash Penicillins Adverse Reaction (Verified 07/20/20 16:38) Rash Home Medications: Ambulatory Orders Medication Instructions Recorded Mycophenolate Mofetil [Cellcept] 500 mg PO BID 07/09/20 Tacrolimus Anhydrous [Prograf] 2 mg PO DAILY@2000 07/10/20 Tacrolimus Anhydrous [Prograf] 3 mg PO DAILY@0800 07/10/20 Acetaminophen [Tylenol Tablet] 650 mg PO Q6H PRN PRN tab 07/24/20 Ensure Enlive 120 ml PO 4X/DAY 07/24/20 Oxycodone HCl 5 mg PO Q6H PRN PRN 3 Days #12 tab 07/24/20 Smz/Tmp Ds [Bactrim Ds] 1 tab PO BIDCM 07/24/20 Surgical History: Surgical History (Last Updated 07/09/20 @ 22:[address] Zachary Jean MD) Kidney transplant recipient Z94.0 Pancreas transplanted Z94.83 Surgical History: - - Eye laser surgery, pancreas transplant, renal transplant. Psychiatric History: No pertinent psych hx Lives: Alone Smoking Status: Never smoker Alcohol: None Drugs: None - *Family History Maternal History Items: Diabetes, - - Parkinson's disease Paternal History Items: COPD, Diabetes Review of Systems Constitutional: Denies: Chills, Fever Cardiovascular: Denies: Chest Pain Respiratory: Denies: Cough, Shortness of Breath Gastrointestinal: Denies: Nausea, Vomiting Musculoskeletal: Reports: Foot Pain Neurological: Reports: Numbness Patient Problems: Active and Suspected Problems (Last Updated 07/09/20 @ 22:[address] Zachary Jean MD) Cellulitis and abscess of foot (Acute) Osteomyelitis (Acute) Debility (Acute) Foot ulcer, left (Acute) Cellulitis of left foot (Acute) Foot osteomyelitis, left (Acute) Left forefoot ulcer (Acute) - Physical Exam Vitals/I&O's: Vital Signs Temp Pulse Resp BP Pulse Ox 98.5 F 82 16 115/64 95 07/25/20 06:30 07/25/20 08:51 07/25/20 08:51 07/25/20 06:30 07/25/20 08:51 Oxygen Delivery Method Room Air Weight: 83 kg Body Mass Index (BMI) 27.0 Finger Stick Blood Glucose 89 Intake and Output for Last 24 Hours 07/23/20 07/24/20 07/25/20 23:59 23:59 23:59 Intake Total 480 / 480 Balance 480 / 480 General: Alert, Oriented x3 HEENT: Atraumatic Extremities: No clubbing, No cyanosis, Capillary Refill Less than 3 Seconds, Diminished Peripheral Pulses, Edema, Tenderness Skin: Ulcer/ Wound - wound vac on left foot with good seal Musculoskeletal: Muscle Wasting, - - left 2nd toe and partial arm amputation Neurological: - - diminished epicritic sensation Psych/Mental Status: Normal Affect, Appropriate Laboratory Results 07/25/20 05:47: WBC 6.3, RBC 4.89, Hgb 13.4, Hct 42.2, MCV 86.3, MCH 27.4, MCHC 31.8 L, RDW Std Deviation 40.4, RDW Coeff of Jairo 12.9, Plt Count 219, MPV 10.3, Immature Gran % (Auto) 1.000 H, Neut % (Auto) 57.1, Lymph % (Auto) 29.9, [place] % (Auto) 9.7, Eos % (Auto) 1.3, Baso % (Auto) 1.0, Absolute Neuts (auto) 3.6, Absolute Lymphs (auto) 1.88, Nucleated RBC % 0 07/25/20 05:47: Sodium 140, Potassium 4.1, Chloride 106, Carbon Dioxide 28.0, Anion Gap 6, BUN 14, Creatinine 0.97, Estim Creat Clear Calc 86.05, Est GFR (MDRD) Af Amer 103, Est GFR (MDRD) Non-Af 85, BUN/Creatinine Ratio 14.5, Glucose 102, Calcium 9.1 Current Medications Acetaminophen (Acetaminophen 500 Mg Tablet) 1,000 mg PO Q6H PRN PRN PRN Reason: Pain Score 1-3 Bisacodyl (Bisacodyl 10 Mg Suppository) 10 mg RECTAL DAILY PRN PRN Reason: Constipation Enoxaparin Sodium (Enoxaparin 40 Mg/0.4 Ml Syringe) 40 mg SC DAILY@0600 [facility] Last Admin: 07/25/20 06:31 Dose: 40 mg Documented by: Mycophenolate Mofetil (Mycophenolate Mofetil 250 Mg Capsule) 500 mg PO 799,1999 [facility] Last Admin: 07/25/20 08:33 Dose: 500 mg Documented by: Nutritional Formula (Lactose Free) (Ensure Enlive 120 Ml Liquid) 120 ml PO 4X/DAY [facility] Last Admin: 07/25/20 11:33 Dose: 120 ml Documented by: Oxycodone HCl (Oxycodone 5 Mg Tablet) 5 mg PO Q4H PRN PRN PRN Reason: Pain Score 4-10 Polyethylene Glycol (Polyethylene Glycol 3350 17 Gm Packet) 17 gm PO DAILY [facility] Last Admin: 07/25/20 06:33 Dose: Not Given Documented by: Senna/Docusate Sodium (Senna/Docusate Sodium 1 Tablet) 2 tablet PO BID [facility] Last Admin: 07/25/20 06:33 Dose: Not Given Documented by: Tacrolimus (Tacrolimus Anhydrous 1 Mg Capsule) 2 mg PO DAILY@1999 [facility] Tacrolimus (Tacrolimus Anhydrous 1 Mg Capsule) 3 mg PO DAILY@0800 [facility] Last Admin: 07/25/20 08:33 Dose: 3 mg Documented by: Trimethoprim/Sulfamethoxazole (Smz/Tmp Ds Tablet) 1 tablet PO BIDCM [facility] Stop: 09/01/20 19:00 Last Admin: 07/25/20 08:34 Dose: 1 tablet Documented by: Tuberculin PPD (Tuberculin,Purif.Prot.Deriv. 50 Tu/Ml Vial) 5 tu ID X1 ONE Stop: 08/01/20 10:01 Assessment/Plan All Active Problems (Last Updated 07/09/20 @ 22:[address] Zachary Jean MD) Cellulitis and abscess of foot (Acute) Osteomyelitis (Acute) Debility (Acute) Foot ulcer, left (Acute) Cellulitis of left foot (Acute) Foot osteomyelitis, left (Acute) Left forefoot ulcer (Acute) Left forefoot cellulitis (Acute) Deep abscess left foot, osteomyelitis left 2nd toe s/p debridement/amputation on 07/21/[address] Valdez Peripheral Neuropathy bilateral lower extremity Immunocompromised s/p kidney and pancreas transplants on immunosuppressive therapy Patient seen and examined with sister present Clinically the foot is improving. No further purulence expressed Continue wound vac therapy, 150mmHg, every other day, continuous. Discussed this with wound nurse Reviewed cultures which show Citrobacter freundii, serratia liquefaciens group, patient on IV antibiotics - with Infectious Disease/Dr. Amato on consult. No weightbearing left foot, keep foot elevated. LEAS noninvasive LE arterial studies have not yet been read but right TBI 0.62,GERALDINE 0.69 and left TBI 0.26, GERALDINE 0.73 are less than optimal and may impact wound healing. Discussed this with patient All questions answered Podiatry will continue to follow.
--- NOTE | 2020-07-25 13:28 | CASEMGMT ---
Social Work Discussed code status with pt. Pt confirmed full code. MOLST form reviewed and placed in chart. 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
[2020-07-25 13:33] VITALS: BP 116/59; PULSE 75; RESP 16; TEMP 36.7; O2SAT 93
[2020-07-25] MEDS: Acetaminophen 500 MG Tablet 1000 MG PO (17:28)
[2020-07-25] MEDS: Tacrolimus Anhydrous 1 MG Capsule 2 MG PO (21:36)
[2020-07-26 04:00] VITALS: BP 112/61; PULSE 74; RESP 16; TEMP 36.3; O2SAT 93
[2020-07-26] MEDS: Acetaminophen 500 MG Tablet 1000 MG PO ×2 (05:29→14:42)
[2020-07-26] MEDS: Enoxaparin 40 MG/0.4 ML Syringe SC (05:30)
[2020-07-26] MEDS: Smz/Tmp Ds Tablet 1 TABLET PO ×2 (08:23→18:04)
[2020-07-26] MEDS: Mycophenolate Mofetil 250 MG Capsule 500 MG PO ×2 (08:24→21:08)
[2020-07-26] MEDS: Tacrolimus Anhydrous 1 MG Capsule 3 MG PO (08:24)
--- NOTE | 2020-07-26 15:00 | NURSING ---
wound photo: left foot (plantar view)
--- NOTE | 2020-07-26 15:02 | NURSING ---
wound photo: left foot (dorsal view)
[2020-07-26 15:04] VITALS: BP 115/56; PULSE 71; RESP 16; TEMP 36.2; O2SAT 93
--- NOTE | 2020-07-26 15:17 | CHAPLAIN ---
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
--- NOTE | 2020-07-26 16:10 | CASEMGMT ---
Social Work SW met with pt and assisted with completing HCPOA and Living Will. Pt naming his sisters Mitzi Perez and Nancy Wilson as HCPOA. Copy placed in chart and original given to pt. ROSE Buckner
[2020-07-26] MEDS: Tacrolimus Anhydrous 1 MG Capsule 2 MG PO (21:07)
[2020-07-27 05:41] VITALS: BP 102/48; PULSE 76; RESP 16; TEMP 36.1; O2SAT 98
[2020-07-27] MEDS: Enoxaparin 40 MG/0.4 ML Syringe SC (05:42)
[2020-07-27 06:25] LABS: Anion Gap 4 (5-15); BUN 23 mg/dL (7-18); BUN/Creat Ratio 20.7 RATIO (10-20); Calcium,Total 9.4 mg/dL (8.5-10.1); Chloride 106 mmol/L (98-107); Creatinine, Serum 1.11 mg/dL (0.70-1.30); EST Glomerular Filtration Rate 73 mL/min (>60); Est Glom Filt Rate - Afr Amer 88 mL/min (>60); Estimated Creatinine Clearance 75.19 ml/min; Glucose 103 mg/dL (74-106); Potassium 4.5 mmol/L (3.5-5.1); Sodium Level 138 mmol/L (136-145)
[2020-07-27] MEDS: Smz/Tmp Ds Tablet 1 TABLET PO ×2 (08:09→17:02)
[2020-07-27] MEDS: Mycophenolate Mofetil 250 MG Capsule 500 MG PO ×2 (08:09→20:23)
[2020-07-27] MEDS: Tacrolimus Anhydrous 1 MG Capsule 3 MG PO (08:09)
[2020-07-27 10:16] VITALS: PULSE 79; RESP 16; O2SAT 93
--- NOTE | 2020-07-27 10:32 | PHA.CONS_ITS ---
<SigifredoMartina - Last Filed: 07/27/20 10:32> Progress Note - Pharmacy Subjective: TCU Admission Objective: Allergies doxazosin Adverse Reaction (Verified 07/20/20 16:38) Rash doxycycline Adverse Reaction (Verified 07/20/20 16:38) Rash Penicillins Adverse Reaction (Verified 07/20/20 16:38) Rash Current Medications Generic Name Dose Route Start Last Admin Trade Name Freq PRN Reason Stop Dose Admin Acetaminophen 1,000 mg 07/24/20 21:27 07/26/20 14:42 Acetaminophen 500 Mg Tablet PO 1,000 mg Q6H PRN PRN Administration Pain Score 1-3 Bisacodyl 10 mg 07/24/20 21:26 Bisacodyl 10 Mg Suppository RECTAL DAILY PRN Constipation Enoxaparin Sodium 40 mg 07/25/20 06:00 07/27/20 05:42 Enoxaparin 40 Mg/0.4 Ml Syringe SC 40 mg DAILY@0600 [facility] Administration Mycophenolate Mofetil 500 mg 07/25/20 08:00 07/27/20 08:09 Mycophenolate Mofetil 250 Mg Capsule PO 500 mg 0800,1999 [facility] Administration Nutritional Formula 1 packet 07/25/20 17:00 07/27/20 08:10 Nutritional Supplement (Gaudencio) Packet PO 1 packet BIDCM [facility] Administration Oxycodone HCl 5 mg 07/24/20 21:27 Oxycodone 5 Mg Tablet PO Q4H PRN PRN Pain Score 4-10 Polyethylene Glycol 17 gm 07/25/20 06:00 07/27/20 05:42 Polyethylene Glycol 3350 17 Gm Packet PO Not Given DAILY [facility] Senna/Docusate Sodium 2 tablet 07/25/20 06:00 07/27/20 05:43 Senna/Docusate Sodium 1 Tablet PO Not Given BID [facility] Tacrolimus 2 mg 07/25/20 20:00 07/26/20 21:07 Tacrolimus Anhydrous 1 Mg Capsule PO 2 mg DAILY@1999 [facility] Administration Tacrolimus 3 mg 07/25/20 08:00 07/27/20 08:09 Tacrolimus Anhydrous 1 Mg Capsule PO 3 mg DAILY@0800 [facility] Administration Trimethoprim/Sulfamethoxazole 1 tablet 07/25/20 08:00 07/27/20 08:09 Smz/Tmp Ds Tablet PO 09/01/20 19:00 1 tablet BIDCM [facility] Administration Tuberculin PPD 5 tu 10/27/20 10:00 Tuberculin,Purif.Prot.Deriv. 50 Tu/Ml Vial ID 08/01/20 10:01 X1 ONE Problem List (Last Updated 07/09/20 @ 22:[address] 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) Vital Signs Temp Pulse Resp BP Pulse Ox 97 F L 76 16 102/48 L 98 07/27/20 05:41 07/27/20 05:41 07/27/20 05:41 07/27/20 05:41 07/27/20 05:41 Oxygen Delivery Method Room Air Weight: 84.187 kg Body Mass Index (BMI) 27.0 Finger Stick Blood Glucose 89 Sodium 138 mmol/L (136-145) 07/27/20 05:20 Potassium 4.5 mmol/L (3.5-5.1) 07/27/20 05:20 Chloride 106 mmol/L (98-107) 07/27/20 05:20 Carbon Dioxide 28.0 mmol/L (21.0-32.0) 07/27/20 05:20 Anion Gap 4 (5-15) L 07/27/20 05:20 BUN 23 mg/dL (7-18) H 07/27/20 05:20 Creatinine 1.11 mg/dL (0.70-1.30) 07/27/20 05:20 Est GFR (MDRD) Af Amer 88 mL/min (>60) 07/27/20 05:20 Est GFR (MDRD) Non-Af 73 mL/min (>60) 07/27/20 05:20 BUN/Creatinine Ratio 20.7 RATIO (10-20) H 07/27/20 05:20 Glucose 103 mg/dL (74-106) 07/27/20 05:20 Assessment/Plan: 1. Pain: acetaminophen 1000mg PO Q6H PRN pain score 1-3/10 and oxycodone 5mg PO Q4H PRN pain score 4-10/10. Please continue to monitor for improvement/worsening of pain and PRN usage. 2. DVT prophylaxis: enoxaparin 40mg SC daily. Please continue to monitor for S/S of bleeding/DVT, renal function, hemoglobin (last 13.4g/dL), and platelets (last 219,000). 3. Kidney/ Pancreas transplant: mycophenolate 500mg PO BID and tacrolimus 3mg PO QAM and 2mg PO QPM. Please monitor CBC , kidney function, liver function, electrolyte levels, tacrolimus levels, and hypertension. 4. Left foot osteomyelitis post 2nd toe amputation: Bactrim DS 1 tablet PO BID (until 09/01/20). Please monitor for improvement/worsening of infection, CBC, kidney function, and potassium levels (last 4.5mmol/L). Psychotropic Medications: None Unnecessary Medications: None *Bowel Regimen: Miralax 17gm PO daily, Biscodyl 10mg MN daily PRN constipation, Senna/Docusate 2 Tablets PO BID. Patient has refused all doses of Miralax and senna/docusate. Please consider changing from scheduled to PRN. Please monitor for S/S of diarrhea and constipation and PRN usage. Date of Note:: 07/27/20 - Provider Comments Provider responsibility: Provider responsible to enter orders to implement recommendations <Kasi Abrams Chi - Last Filed: 07/27/20 16:36> Progress Note - Pharmacy Subjective: [] Objective: Allergies doxazosin Adverse Reaction (Verified 07/20/20 16:38) Rash doxycycline Adverse Reaction (Verified 07/20/20 16:38) Rash Penicillins Adverse Reaction (Verified 07/20/20 16:38) Rash Current Medications Generic Name Dose Route Start Last Admin Trade Name Freq PRN Reason Stop Dose Admin Acetaminophen 1,000 mg 07/24/20 21:27 07/26/20 14:42 Acetaminophen 500 Mg Tablet PO 1,000 mg Q6H PRN PRN Administration Pain Score 1-3 Bisacodyl 10 mg 07/24/20 21:26 Bisacodyl 10 Mg Suppository RECTAL DAILY PRN Constipation Enoxaparin Sodium 40 mg 07/25/20 06:00 07/27/20 05:42 Enoxaparin 40 Mg/0.4 Ml Syringe SC 40 mg DAILY@0600 [facility] Administration Mycophenolate Mofetil 500 mg 07/25/20 08:00 07/27/20 08:09 Mycophenolate Mofetil 250 Mg Capsule PO 500 mg 08,1999 [facility] Administration Nutritional Formula 1 packet 07/25/20 17:00 07/27/20 08:10 Nutritional Supplement (Gaudencio) Packet PO 1 packet BIDCM [facility] Administration Oxycodone HCl 5 mg 07/24/20 21:27 Oxycodone 5 Mg Tablet PO Q4H PRN PRN Pain Score 4-10 Polyethylene Glycol 17 gm 07/25/20 06:00 07/27/20 05:42 Polyethylene Glycol 3350 17 Gm Packet PO Not Given DAILY [facility] Senna/Docusate Sodium 2 tablet 07/25/20 06:00 07/27/20 05:43 Senna/Docusate Sodium 1 Tablet PO Not Given BID [facility] Tacrolimus 2 mg 07/25/20 20:00 07/26/20 21:07 Tacrolimus Anhydrous 1 Mg Capsule PO 2 mg DAILY@1999 [facility] Administration Tacrolimus 3 mg 07/25/20 08:00 07/27/20 08:09 Tacrolimus Anhydrous 1 Mg Capsule PO 3 mg DAILY@08 [facility] Administration Trimethoprim/Sulfamethoxazole 1 tablet 07/25/20 08:00 07/27/20 08:09 Smz/Tmp Ds Tablet PO 09/01/20 19:00 1 tablet BIDCM [facility] Administration Tuberculin PPD 5 tu 08/01/20 10:00 Tuberculin,Purif.Prot.Deriv. 50 Tu/Ml Vial ID 08/01/20 10:01 X1 ONE Problem List (Last Updated 07/09/20 @ 22:[address] 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) Vital Signs Temp Pulse Resp BP Pulse Ox 97.7 F L 79 16 118/62 93 07/27/20 15:45 07/27/20 15:45 07/27/20 15:45 07/27/20 15:45 07/27/20 15:45 Oxygen Delivery Method Room Air Weight: 84.187 kg Body Mass Index (BMI) 27.0 Finger Stick Blood Glucose 89 Sodium 138 mmol/L (136-145) 07/27/20 05:20 Potassium 4.5 mmol/L (3.5-5.1) 07/27/20 05:20 Chloride 106 mmol/L (98-107) 07/27/20 05:20 Carbon Dioxide 28.0 mmol/L (21.0-32.0) 07/27/20 05:20 Anion Gap 4 (5-15) L 07/27/20 05:20 BUN 23 mg/dL (7-18) H 07/27/20 05:20 Creatinine 1.11 mg/dL (0.70-1.30) 07/27/20 05:20 Est GFR (MDRD) Af Amer 88 mL/min (>60) 07/27/20 05:20 Est GFR (MDRD) Non-Af 73 mL/min (>60) 07/27/20 05:20 BUN/Creatinine Ratio 20.7 RATIO (10-20) H 07/27/20 05:20 Glucose 103 mg/dL (74-106) 07/27/20 05:20 Assessment/Plan: Psychotropic Medications: Unnecessary Medications: Bowel Regimen: - Provider Comments Provider responsibility: Provider responsible to enter orders to implement recommendations Provider Comments to Recommendations by Pharmacy: Agree
[2020-07-27 15:45] VITALS: BP 118/62; PULSE 79; RESP 16; TEMP 36.5; O2SAT 93
[2020-07-27] MEDS: Acetaminophen 500 MG Tablet 1000 MG PO (20:21)
[2020-07-27] MEDS: Tacrolimus Anhydrous 1 MG Capsule 2 MG PO (20:23)
[2020-07-28 05:30] VITALS: BP 92/65; PULSE 69; RESP 16; TEMP 36.6; O2SAT 97
[2020-07-28] MEDS: Enoxaparin 40 MG/0.4 ML Syringe SC (05:31)
--- NOTE | 2020-07-28 07:27 | PCM.PROGNOTE ---
Patient Problems: Active and Suspected Problems (Last Updated 07/09/20 @ 22:[address] Zachary Jean MD) Cellulitis and abscess of foot (Acute) Osteomyelitis (Acute) Debility (Acute) Foot ulcer, left (Acute) Cellulitis of left foot (Acute) Foot osteomyelitis, left (Acute) Left forefoot ulcer (Acute) - Physical Exam Vitals/I&O's: Vital Signs Temp Pulse Resp BP Pulse Ox 97.8 F 69 16 92/65 97 07/28/20 05:30 07/28/20 05:30 07/28/20 05:30 07/28/20 05:30 07/28/20 05:30 Oxygen Delivery Method Room Air Weight: 84.187 kg Body Mass Index (BMI) 27.0 Finger Stick Blood Glucose 89 Intake and Output for Last 24 Hours 07/26/20 07/27/20 07/28/20 23:59 23:59 23:59 Intake Total 720 / 720 1080 / 1080 Balance 720 / 720 1080 / 1080 Current Medications Acetaminophen (Acetaminophen 500 Mg Tablet) 1,000 mg PO Q6H PRN PRN PRN Reason: Pain Score 1-3 Last Admin: 07/27/20 20:21 Dose: 1,000 mg Documented by: Bisacodyl (Bisacodyl 10 Mg Suppository) 10 mg RECTAL DAILY PRN PRN Reason: Constipation Enoxaparin Sodium (Enoxaparin 40 Mg/0.4 Ml Syringe) 40 mg SC DAILY@0600 [facility] Last Admin: 07/28/20 05:31 Dose: 40 mg Documented by: Mycophenolate Mofetil (Mycophenolate Mofetil 250 Mg Capsule) 500 mg PO 0800,2000 [facility] Last Admin: 07/27/20 20:23 Dose: 500 mg Documented by: Nutritional Formula (Nutritional Supplement (Gaudencio) Packet) 1 packet PO BIDCM [facility] Last Admin: 07/27/20 17:02 Dose: 1 packet Documented by: Oxycodone HCl (Oxycodone 5 Mg Tablet) 5 mg PO Q4H PRN PRN PRN Reason: Pain Score 4-10 Polyethylene Glycol (Polyethylene Glycol 3350 17 Gm Packet) 17 gm PO DAILY [facility] Last Admin: 07/28/20 05:33 Dose: Not Given Documented by: Senna/Docusate Sodium (Senna/Docusate Sodium 1 Tablet) 2 tablet PO BID [facility] Last Admin: 07/28/20 05:33 Dose: Not Given Documented by: Tacrolimus (Tacrolimus Anhydrous 1 Mg Capsule) 2 mg PO DAILY@2000 [facility] Last Admin: 07/27/20 20:23 Dose: 2 mg Documented by: Tacrolimus (Tacrolimus Anhydrous 1 Mg Capsule) 3 mg PO DAILY@0800 [facility] Last Admin: 07/27/20 08:09 Dose: 3 mg Documented by: Trimethoprim/Sulfamethoxazole (Smz/Tmp Ds Tablet) [facility] Stop: 09/01/20 19:00 Last Admin: 07/27/20 17:02 Dose: 1 tablet Documented by: Tuberculin PPD (Tuberculin,Purif.Prot.Deriv. 50 Tu/Ml Vial) 5 tu ID [id number] ONE Stop: 08/01/20 10:01 Medical Necessity - Tobacco Use Smoking Status: Never smoker Assessment/Plan All Active Problems (Last Updated 07/09/20 @ 22:[address] Zachary Jean MD) Cellulitis and abscess of foot (Acute) Osteomyelitis (Acute) Debility (Acute) Foot ulcer, left (Acute) Cellulitis of left foot (Acute) Foot osteomyelitis, left (Acute) Left forefoot ulcer (Acute) Left forefoot cellulitis (Acute)
[2020-07-28] MEDS: Smz/Tmp Ds Tablet 1 TABLET PO ×2 (08:14→16:58)
[2020-07-28] MEDS: Mycophenolate Mofetil 250 MG Capsule 500 MG PO ×2 (08:15→21:24)
[2020-07-28] MEDS: Tacrolimus Anhydrous 1 MG Capsule 3 MG PO (08:15)
[2020-07-28 15:35] VITALS: BP 104/47; PULSE 81; RESP 18; TEMP 36.7; O2SAT 96
[2020-07-28] MEDS: Tacrolimus Anhydrous 1 MG Capsule 2 MG PO (21:23)
[2020-07-28] MEDS: Acetaminophen 500 MG Tablet 1000 MG PO (21:27)
--- NOTE | 2020-07-29 03:11 | NURSING ---
Pt resting in bed, wound vac intact, lt leg elevated on pillow. Appears to be sleeping, no distress noted.
[2020-07-29 06:19] VITALS: BP 103/52; PULSE 72; RESP 16; TEMP 36.4; O2SAT 94
[2020-07-29] MEDS: Enoxaparin 40 MG/0.4 ML Syringe SC (06:20)
[2020-07-29] MEDS: Smz/Tmp Ds Tablet 1 TABLET PO ×2 (08:12→17:20)
[2020-07-29] MEDS: Mycophenolate Mofetil 250 MG Capsule 500 MG PO ×2 (08:12→19:34)
[2020-07-29] MEDS: Tacrolimus Anhydrous 1 MG Capsule 3 MG PO (08:12)
--- NOTE | 2020-07-29 13:06 | NURSING ---
Resident notified of COVID Outbreak status. Left message for sister, Nancy, to call.
[2020-07-29 15:42] VITALS: PULSE 83; RESP 16; O2SAT 98
[2020-07-29 15:54] VITALS: BP 104/56; PULSE 83; RESP 16; TEMP 36.7; O2SAT 98
[2020-07-29] MEDS: Tacrolimus Anhydrous 1 MG Capsule 2 MG PO (19:34)
[2020-07-29] MEDS: Acetaminophen 500 MG Tablet 1000 MG PO (19:39)
--- NOTE | 2020-07-30 03:17 | NURSING ---
Pt resting in bed, eyes closed, softly snoring, wound vac intact. lt leg elevated on pillows.
[2020-07-30 06:15] VITALS: BP 112/63; PULSE 74; RESP 16; TEMP 36.1; O2SAT 95
[2020-07-30] MEDS: Enoxaparin 40 MG/0.4 ML Syringe SC (06:16)
[2020-07-30] MEDS: Tacrolimus Anhydrous 1 MG Capsule 3 MG PO (08:38)
[2020-07-30] MEDS: Mycophenolate Mofetil 250 MG Capsule 500 MG PO ×2 (08:38→19:55)
[2020-07-30] MEDS: Smz/Tmp Ds Tablet 1 TABLET PO ×2 (08:38→17:38)
[2020-07-30 16:44] VITALS: BP 116/64; PULSE 87; RESP 16; TEMP 36.4; O2SAT 92
[2020-07-30] MEDS: Acetaminophen 500 MG Tablet 1000 MG PO (19:55)
[2020-07-30] MEDS: Tacrolimus Anhydrous 1 MG Capsule 2 MG PO (19:56)
[2020-07-31 05:59] VITALS: BP 107/70; PULSE 63; RESP 18; TEMP 36.7; O2SAT 95
[2020-07-31] MEDS: Enoxaparin 40 MG/0.4 ML Syringe SC (06:02)
[2020-07-31] MEDS: Senna/Docusate Sodium 1 Tablet 2 TABLET PO (06:02)
[2020-07-31 06:06] LABS: Anion Gap 6 (5-15); BUN 30 mg/dL (7-18); BUN/Creat Ratio 26.1 RATIO (10-20); Calcium,Total 9.4 mg/dL (8.5-10.1); Chloride 107 mmol/L (98-107); Creatinine, Serum 1.15 mg/dL (0.70-1.30); EST Glomerular Filtration Rate 70 mL/min (>60); Est Glom Filt Rate - Afr Amer 85 mL/min (>60); Estimated Creatinine Clearance 72.58 ml/min; Glucose 106 mg/dL (74-106); Potassium 4.2 mmol/L (3.5-5.1); Sodium Level 136 mmol/L (136-145)
[2020-07-31] MEDS: Tacrolimus Anhydrous 1 MG Capsule 3 MG PO (08:07)
[2020-07-31] MEDS: Mycophenolate Mofetil 250 MG Capsule 500 MG PO ×2 (08:08→20:44)
[2020-07-31] MEDS: Smz/Tmp Ds Tablet 1 TABLET PO ×2 (08:08→18:47)
[2020-07-31 10:00] VITALS: PULSE 77; O2SAT 93
--- NOTE | 2020-07-31 10:50 | NURSING ---
wound photo: left foot (plantar view)
--- NOTE | 2020-07-31 10:51 | NURSING ---
wound photo: left foot (dorsal view)
[2020-07-31 13:29] VITALS: BP 96/68; PULSE 77; RESP 16; TEMP 36.3; O2SAT 93
--- NOTE | 2020-07-31 17:40 | NURSING ---
Sister, Nancy, number listed is a wrong number.
[2020-07-31] MEDS: Tacrolimus Anhydrous 1 MG Capsule 2 MG PO (20:44)
[2020-07-31] MEDS: Acetaminophen 500 MG Tablet 1000 MG PO (20:47)
[2020-08-01 05:32] VITALS: BP 108/64; PULSE 75; RESP 16; TEMP 36.4; O2SAT 97
[2020-08-01] MEDS: Enoxaparin 40 MG/0.4 ML Syringe SC (05:34)
[2020-08-01 05:58] LABS: Absolute Lymphocyte Count 2.57 X10^3/uL (0.83-4.51); Absolute Neutrophil Count 2.9 X10^3/uL (2.0-7.7); Basophil# 0.06 X10^3/uL; Eosinophil# 0.11 X10^3/uL; Eosinophils% 1.8 % (0-5); Hematocrit 48.5 % (40-54); Hemoglobin 15.3 g/dL (13.0-16.5); Lymphocyte # 2.57 X10^3/ul (4.0); Mean Corp Hgb Conc 31.5 g/dL (32-36); Mean Corpuscular Hgb 26.7 pg (27.0-32.0); Mean Corpuscular Volume 84.8 fL (80-94); Mean Platelet Vol. 10.9 fl (6.2-12.0); Monocyte# 0.43 X10^3/uL; NRBC Flagged by Analyzer 0 % (0-5); Neutrophil # 2.92 X10^3/uL (2.7-7.7); Neutrophil % 47.7 % (47-70); Platelet Count 167 K/mm3 (150-450); RBC Distribution Width CV 13.3 % (11.6-14.6); RBC Distribution Width SD 40.3 fl (35.1-43.9); Red Blood Count 5.72 M/mm3 (4.6-6.2); White Blood Count 6.1 K/mm3 (4.4-11.0)
[2020-08-01 06:32] LABS: Anion Gap 6 (5-15); BUN 30 mg/dL (7-18); BUN/Creat Ratio 22.6 RATIO (10-20); Calcium,Total 9.5 mg/dL (8.5-10.1); Chloride 106 mmol/L (98-107); Creatinine, Serum 1.33 mg/dL (0.70-1.30); EST Glomerular Filtration Rate 59 mL/min (>60); Est Glom Filt Rate - Afr Amer 72 mL/min (>60); Estimated Creatinine Clearance 62.76 ml/min; Glucose 96 mg/dL (74-106); Potassium 4.4 mmol/L (3.5-5.1); Sodium Level 137 mmol/L (136-145)
[2020-08-01] MEDS: Smz/Tmp Ds Tablet 1 TABLET PO ×2 (08:41→16:29)
[2020-08-01] MEDS: Mycophenolate Mofetil 250 MG Capsule 500 MG PO ×2 (08:41→20:17)
[2020-08-01] MEDS: Tacrolimus Anhydrous 1 MG Capsule 3 MG PO (08:41)
[2020-08-01] MEDS: Tuberculin,Purif.prot.deriv. 50 TU/ML Vial 5 ML ID (11:43)
[2020-08-01 16:00] VITALS: BP 113/67; PULSE 74; RESP 20; TEMP 36.4; O2SAT 97
--- NOTE | 2020-08-01 16:03 | NURSING ---
Resident notified of staff member testing positive for COVID-19. Number for sisterNancy is the wrong number.
[2020-08-01] MEDS: Acetaminophen 500 MG Tablet 1000 MG PO (20:16)
[2020-08-01] MEDS: Tacrolimus Anhydrous 1 MG Capsule 2 MG PO (20:18)
--- NOTE | 2020-08-02 02:40 | NURSING ---
Pt resting in bed with eyes closed, resp even. Left foot elevated on pillows.
[2020-08-02 05:18] VITALS: BP 98/60; PULSE 72; RESP 16; TEMP 36.2; O2SAT 95
[2020-08-02] MEDS: Enoxaparin 40 MG/0.4 ML Syringe SC (05:20)
[2020-08-02] MEDS: Smz/Tmp Ds Tablet 1 TABLET PO ×2 (07:57→17:40)
[2020-08-02] MEDS: Mycophenolate Mofetil 250 MG Capsule 500 MG PO ×2 (07:57→20:27)
[2020-08-02] MEDS: Tacrolimus Anhydrous 1 MG Capsule 3 MG PO (07:57)
--- NOTE | 2020-08-02 13:53 | PCM.DC ---
- Discharge Diagnoses Current Active Problems: Current Active and Chronic Problems (Last Updated 07/09/20 @ 22:[address] 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) You will use the following diet at home:: No restrictions, Regular Your food should be the consistency of: Regular Your liquids should be the consistency of: Regular/Thin Discharge Activity: Return to Normal Activity, Use Walker Weight Bearing Status: No weight bearing Keep extremity elevated above heart level: Left Leg Call your doctor if you observe: Fever of 101 or Higher, Inability to urinate, Inability to have a bowel movement, Shortness of breath, Chest pain, Uncontrolled pain Allergies/Adverse Reactions: Allergies doxazosin Adverse Reaction (Verified 07/20/20 16:38) Rash doxycycline Adverse Reaction (Verified 07/20/20 16:38) Rash Penicillins Adverse Reaction (Verified 07/20/20 16:38) Rash Medications to take at Discharge Mycophenolate Mofetil [Cellcept] 500 mg PO BID 07/09/20 Tacrolimus Anhydrous [Prograf] 2 mg PO DAILY@2000 07/10/20 Tacrolimus Anhydrous [Prograf] 3 mg PO DAILY@0800 07/10/20 Acetaminophen [Tylenol] 1,000 mg PO Q6H PRN PRN tablet 08/02/20 Nutritional Supplement [Gaudencio - ORANGE FLAVOR] 1 packet PO BIDCM #60 packet 08/02/20 Smz/Tmp Ds [Bactrim Ds] 1 tab PO BIDCM #54 tab 08/02/20 The following prescriptions were given: Smz/Tmp Ds [Bactrim Ds] 1 tab PO BIDCM #54 tab Transmission Status: Pending to [facility]/pharmacy #[id number] Nutritional Supplement [Gaudencio - ORANGE FLAVOR] 1 packet PO BIDCM #60 packet Transmission Status: Pending to [facility]/pharmacy #[id number] Primary Care Physician: Tung Isaac MD [Primary Care Provider] - Please follow up with your Primary Care Physician in: 1 week. Test Results: Test results from this visit will be discussed in further detail at your follow-up appointment, if applicable. Please Follow Up With: Sherron Garcia DPM When: 1 week. Proposed Discharge Date: 08/05/20
--- NOTE | 2020-08-02 13:56 | DS.PCM_ITS ---
Discharge Date and Diagnosis - Problem List Patient Problems: Active and Suspected Problems (Last Updated 07/09/20 @ 22:[address] Zachary Jean MD) Cellulitis and abscess of foot (Acute) Osteomyelitis (Acute) Debility (Acute) Foot ulcer, left (Acute) Cellulitis of left foot (Acute) Foot osteomyelitis, left (Acute) Left forefoot ulcer (Acute) Date of Admission: 07/24/20 Date of Discharge: 08/05/20 - Primary Discharge Diagnosis Acute Problems: Active Problems (Last Updated 07/09/20 @ 22:[address] Zachary Jean MD) Cellulitis and abscess of foot (Acute) Osteomyelitis (Acute) Debility (Acute) Foot ulcer, left (Acute) Cellulitis of left foot (Acute) Foot osteomyelitis, left (Acute) Left forefoot ulcer (Acute) - Secondary Discharge Diagnosis Chronic Problems: Chronic Problems (Last Updated 07/09/20 @ 22:[address] 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) Hospital Course and Treatment Imaging Results: 07/24/20 21:10 Diet: Regular - General Food consistency:: Regular Liquid Consistency:: Regular/Thin Dietary Modifications:: No Added Salt Labs (Last 48 Hours) 08/01/20 08/01/20 05:20 05:20 WBC 6.1 RBC 5.72 Hgb 15.3 Hct 48.5 MCV 84.8 MCH 26.7 L MCHC 31.5 L RDW Std Deviation 40.3 RDW Coeff of Jairo 13.3 Plt Count 167 MPV 10.9 Immature Gran % (Auto) 0.500 Neut % (Auto) 47.7 Lymph % (Auto) 42.0 H [place] % (Auto) 7.0 Eos % (Auto) 1.8 Baso % (Auto) 1.0 Absolute Neuts (auto) 2.9 Absolute Lymphs (auto) 2.57 Nucleated RBC % 0 Sodium 137 Potassium 4.4 Chloride 106 Carbon Dioxide 25.0 Anion Gap 6 BUN 30 H Creatinine 1.33 H Estim Creat Clear Calc 62.76 Est GFR (MDRD) Af Amer 72 Est GFR (MDRD) Non-Af 59 L BUN/Creatinine Ratio 22.6 H Glucose 96 Calcium 9.5 Microbiology 07/31/20 10:19 Mucosa - Nose - Final Consultations 07/25/20 06:45 Consult: Onc/Wound/traveling sales representative Routine Comment: Operations: None, - - Debridement left 2nd toe and left 2nd toe amputation Procedures: None Summary of Care Provided: The patient is a 54 year old Male with below past medical history hospitalized for left foot cellulitis, left foot osteomyelitis, underwent debridement/ampu tation left 2nd toe 07/21/20 per Podiatry, admitted to TCU with debility, here for rehabilitation, strengthening, wound care, prior to discharge home alone. On TCU, he had bump in creatinine, his [facility] transplant loading inspector is aware, immunosuppressant levels ordered. Resident told me while on TCU he has been drinking more soda pop than he ever has in his life, and not drinking water like he usually does. I asked him to go back to hydrating with water, maybe cause of his acute kidney injury. Bactrim DS BID course thru 09/01/20 per Infectious Disease for treatment of left foot osteomyelitis. Discharge home alone, Home Health Care PT/OT/SN. Patient Problems: Active and Suspected Problems (Last Updated 07/09/20 @ 22:[address] Zachary Jean MD) Cellulitis and abscess of foot (Acute) Osteomyelitis (Acute) Debility (Acute) Foot ulcer, left (Acute) Cellulitis of left foot (Acute) Foot osteomyelitis, left (Acute) Left forefoot ulcer (Acute) - Physical Exam Vitals/I&O's: Vital Signs Temp Pulse Resp BP Pulse Ox 97.1 F L 72 16 98/60 95 08/02/20 05:18 08/02/20 05:18 08/02/20 05:18 08/02/20 05:18 08/02/20 05:18 Oxygen Delivery Method Room Air Weight: 82.639 kg Body Mass Index (BMI) 27.0 Finger Stick Blood Glucose 89 Intake and Output for Last 24 Hours 07/31/20 08/01/20 08/02/20 23:59 23:59 23:59 Intake Total 720 / 720 480 / 480 240 / 240 Balance 720 / 720 480 / 480 240 / 240 Microbiology Past 72 Hours 07/31/20 10:19 Mucosa - Nose - Final Current Medications Acetaminophen (Acetaminophen 500 Mg Tablet) 1,000 mg PO Q6H PRN PRN PRN Reason: Pain Score 1-3 Last Admin: 08/01/20 20:16 Dose: 1,000 mg Documented by: Bisacodyl (Bisacodyl 10 Mg Suppository) 10 mg RECTAL DAILY PRN PRN Reason: Constipation Enoxaparin Sodium (Enoxaparin 40 Mg/0.4 Ml Syringe) 40 mg SC DAILY@0600 [facility] Last Admin: 08/02/20 05:20 Dose: 40 mg Documented by: Mycophenolate Mofetil (Mycophenolate Mofetil 250 Mg Capsule) 500 mg PO 08,1999 [facility] Last Admin: 08/02/20 07:57 Dose: 500 mg Documented by: Nutritional Formula (Nut[facility]al [facility] (Gaudencio) Packet) [facility] Last Admin: 08/02/20 07:57 Dose: 1 packet Documented by: Oxycodone HCl (Oxycodone 5 Mg Tablet) 5 mg PO Q4H PRN PRN PRN Reason: Pain Score 4-10 Polyethylene Glycol (Polyethylene Glycol 3350 17 Gm Packet) 17 gm PO DAILY [facility] Last Admin: 08/02/20 05:20 Dose: Not Given Documented by: Senna/Docusate Sodium (Senna/Docusate Sodium 1 Tablet) 2 tablet PO BID [facility] Last Admin: 08/02/20 05:20 Dose: Not Given Documented by: Tacrolimus (Tacrolimus Anhydrous 1 Mg Capsule) 2 mg PO DAILY@1999 [facility] Last Admin: 08/01/20 20:18 Dose: 2 mg Documented by: Tacrolimus (Tacrolimus Anhydrous 1 Mg Capsule) 3 mg PO DAILY@0800 [facility] Last Admin: 08/02/20 07:57 Dose: 3 mg Documented by: Trimethoprim/Sulfamethoxazole (Smz/Tmp Ds Tablet) [facility] Stop: 09/01/20 19:00 Last Admin: 08/02/20 07:57 Dose: 1 tablet Documented by: Discharge Diet: No Restrictions Discharge Activity: Return to Normal Activity, Use Walker Weight Bearing Status: No weight bearing Keep extremity elevated above heart level: Left Leg Call your doctor if you observe: Fever of 101 or Higher, Inability to urinate, Inability to have a bowel movement, Shortness of breath, Chest pain, Uncontrol led pain Home Medications: Medications to take at Discharge Mycophenolate Mofetil [Cellcept] 500 mg PO BID 07/09/20 Tacrolimus Anhydrous [Prograf] 2 mg PO DAILY@199907/10/20 Tacrolimus Anhydrous [Prograf] 3 mg PO DAILY@0800 07/10/20 Acetaminophen [Tylenol] 1,000 mg PO Q6H PRN PRN tablet 08/02/20 Nutritional Supplement [Gaudencio - ORANGE FLAVOR] 1 packet PO BIDCM #60 packet 08/02/20 Smz/Tmp Ds [Bactrim Ds] 1 tab PO BIDCM #54 tab 08/02/20 Following Prescriptions Were Given to Patient: Smz/Tmp Ds [Bactrim Ds] 1 tab PO BIDCM #54 tab Transmission Status: Pending to [facility]/pharmacy #[id number] Nutritional Supplement [Gaudencio - ORANGE FLAVOR] 1 packet PO BIDCM #60 packet Transmission Status: Pending to [facility]/pharmacy #[id number] Primary Care Physician: Tung Isaac MD [Primary Care Provider] - Please follow up with your Primary Care Physician in: 1 week. Please Follow Up With: Sherron Garcia DPM When: 1 week. Disposition: Home with Home Health Minutes spent on discharge:: 35 Patient Condition:: Stable Medical Necessity - Tobacco Use Smoking Status: Never smoker Meaningful Use Info Meaningful Use Diagnoses (Choose all that apply): None applicable
[2020-08-02 15:47] VITALS: BP 116/64; PULSE 55; RESP 16; TEMP 36.5; O2SAT 100
--- NOTE | 2020-08-02 15:51 | NURSING ---
This nurse spoke with Elise from [facility]. Spoke to her about BUN and creatinine levels being elevated. Tacrolimus levels need to be checked to see if medication is at therapeutic levels because of kidney function. Dr. Abrams made aware and gave order for the blood draw. Blood draw needs done between 0700 and 0800 before morning dose of Prograf. Will notify Elise once lab results are in.
[2020-08-02 15:59] VITALS: PULSE 55; RESP 16; O2SAT 100
--- NOTE | 2020-08-02 16:14 | CASEMGMT ---
Social Work IDT met with patient for care plan meeting. Discussed patient's progress in therapy. Pt is Seda for bed mobility, tx, using left platform walker and left knee sling to ambulate 40 ft at SBA to maintain NWBS LLE. Pt needs cues to slow down. Pt is using #3 wts for LE exercises. Pt is set up for grooming, CGA for bathing, st up for UE dressing, CGA for LE dressing, SBA for toileting tasks. Explained Medicare benefit. Pt requesting to DC 08/05 to sister's house for a couple weeks. IDT agreeable for DC. Referral made to [facility] for PT/OT/SN and will manage wound vac changes 3x/weekly. Referred to [employer] for platform walker and sling. Plan: DC home with [facility] PT/OT/SN, wound vac, [employer] - platform walker MAURICE DuarteW
[2020-08-02] MEDS: Acetaminophen 500 MG Tablet 1000 MG PO (17:39)
[2020-08-02] MEDS: Tacrolimus Anhydrous 1 MG Capsule 2 MG PO (20:27)
[2020-08-03 04:00] VITALS: BP 116/63; PULSE 73; RESP 18; TEMP 36.6; O2SAT 94
[2020-08-03] MEDS: Enoxaparin 40 MG/0.4 ML Syringe SC (05:14)
[2020-08-03] MEDS: Acetaminophen 500 MG Tablet 1000 MG PO ×2 (07:59→20:20)
[2020-08-03] MEDS: Mycophenolate Mofetil 250 MG Capsule 500 MG PO ×2 (08:00→20:20)
[2020-08-03] MEDS: Tacrolimus Anhydrous 1 MG Capsule 3 MG PO (08:01)
[2020-08-03 08:04] LABS: Anion Gap 4 (5-15); BUN 31 mg/dL (7-18); BUN/Creat Ratio 24.4 RATIO (10-20); Calcium,Total 9.2 mg/dL (8.5-10.1); Chloride 108 mmol/L (98-107); Creatinine, Serum 1.27 mg/dL (0.70-1.30); EST Glomerular Filtration Rate 62 mL/min (>60); Est Glom Filt Rate - Afr Amer 76 mL/min (>60); Estimated Creatinine Clearance 65.72 ml/min; Glucose 97 mg/dL (74-106); Potassium 4.4 mmol/L (3.5-5.1); Sodium Level 137 mmol/L (136-145)
[2020-08-03] MEDS: Smz/Tmp Ds Tablet 1 TABLET PO ×2 (08:04→17:08)
--- NOTE | 2020-08-03 12:04 | MDS.RN ---
Information for the mds was obtained from review of the clinical record, interview of resident, staff, and direct observation of resident's care.
--- NOTE | 2020-08-03 14:33 | PCM.PROGNOTE ---
Patient Problems: Active and Suspected Problems (Last Updated 07/09/20 @ 22:[address] Zachary Jean MD) Cellulitis and abscess of foot (Acute) Osteomyelitis (Acute) Debility (Acute) Foot ulcer, left (Acute) Cellulitis of left foot (Acute) Foot osteomyelitis, left (Acute) Left forefoot ulcer (Acute) Subjective: This 54-year-old male with multiple comorbidities was seen bedside today postoperative left second toe amputation with widespread debridement of the foot. His wound VAC is intact. He denies pain, fever, chill, nausea, vomiting, loss of appetite. He is ready to transition home within the next week. - Physical Exam Vitals/I&O's: Vital Signs Temp Pulse Resp BP Pulse Ox 97.8 F 73 18 116/63 94 08/03/20 04:00 08/03/20 04:00 08/03/20 04:00 08/03/20 04:00 08/03/20 04:00 Oxygen Delivery Method Room Air Weight: 82.639 kg Body Mass Index (BMI) 27.0 Finger Stick Blood Glucose 89 Intake and Output for Last 24 Hours 08/01/20 08/02/20 08/03/20 23:59 23:59 23:59 Intake Total 480 / 480 240 / 240 720 / 720 Balance 480 / 480 240 / 240 720 / 720 General: Alert, Oriented x3, Cooperative HEENT: Atraumatic Extremities: No cyanosis, No edema, Capillary Refill Less than 3 Seconds, No Calf Tenderness, Diminished Peripheral Pulses Skin: Ulcer/ Wound - No purulence, erythema, streaking, odor, infection. The ulcer bed is granular with scant fibrous tissue. There is no necrosis, deep bone exposure or evidence of current critical limb ischemia. His skin is atrophic and hairless. Musculoskeletal: No Tenderness to Palpation of Joints or Extremities, Muscle Wasting, - - Second toe amputation left foot. Adjacent lesser toe contraction. Compartments are soft to palpate Neurological: - - Lack of normal epicritic sensation to light touch Psych/Mental Status: Normal Affect, Appropriate Microbiology Past 72 Hours 07/31/20 10:19 Mucosa - Nose - Final Laboratory Results 08/03/20 07:05: Sodium 137, Potassium 4.4, Chloride 108 H, Carbon Dioxide 25.0, Anion Gap 4 L, BUN 31 H, Creatinine 1.27, Estim Creat Clear Calc 65.72, Est GFR (MDRD) Af Amer 76, Est GFR (MDRD) Non-Af 62, BUN/Creatinine Ratio 24.4 H, Glucose 97, Calcium 9.2 08/03/20 07:05: Tacrolimus Pending Current Medications Acetaminophen (Acetaminophen 500 Mg Tablet) 1,000 mg PO Q6H PRN PRN PRN Reason: Pain Score 1-3 Last Admin: 08/03/20 07:59 Dose: 1,000 mg Documented by: Bisacodyl (Bisacodyl 10 Mg Suppository) 10 mg RECTAL DAILY PRN PRN Reason: Constipation Enoxaparin Sodium (Enoxaparin 40 Mg/0.4 Ml Syringe) 40 mg SC DAILY@0600 [facility] Last Admin: 08/03/20 05:14 Dose: 40 mg Documented by: Mycophenolate Mofetil (Mycophenolate Mofetil 250 Mg Capsule) 500 mg PO 799,1999 [facility] Last Admin: 08/03/20 08:00 Dose: 500 mg Documented by: Nutritional Formula ([facility]al [facility]Gaudencio) [facility]) [facility] Last Admin: 08/03/20 07:59 Dose: 1 packet Documented by: Oxycodone HCl (Oxycodone 5 Mg Tablet) 5 mg PO Q4H PRN PRN PRN Reason: Pain Score 4-10 Polyethylene Glycol (Polyethylene Glycol 3350 17 Gm Packet) 17 gm PO DAILY [facility] Last Admin: 08/03/20 05:15 Dose: Not Given Documented by: Senna/Docusate Sodium (Senna/Docusate Sodium 1 Tablet) 2 tablet PO BID [facility] Last Admin: 08/03/20 05:15 Dose: Not Given Documented by: Tacrolimus (Tacrolimus Anhydrous 1 Mg Capsule) 2 mg PO DAILY@1999 [facility] Last Admin: 08/02/20 20:27 Dose: 2 mg Documented by: Tacrolimus (Tacrolimus Anhydrous 1 Mg Capsule) 3 mg PO DAILY@08 [facility] Last Admin: 08/03/20 08:01 Dose: 3 mg Documented by: Trimethoprim/Sulfamethoxazole (Smz/Tmp Ds Tablet) [facility] Stop: 09/01/20 19:00 Last Admin: 08/03/20 08:04 Dose: 1 tablet Documented by: Medical Necessity - Tobacco Use Smoking Status: Never smoker Assessment/Plan All Active Problems (Last Updated 07/09/20 @ 22:[address] Zachary Jean MD) Cellulitis and abscess of foot (Acute) Osteomyelitis (Acute) Debility (Acute) Foot ulcer, left (Acute) Cellulitis of left foot (Acute) Foot osteomyelitis, left (Acute) Left forefoot ulcer (Acute) Left forefoot cellulitis (Acute) Deep abscess left foot, osteomyelitis left 2nd toe s/p debridement/amputation on 07/21/[address] Valdez Peripheral Neuropathy bilateral lower extremity Immunocompromised s/p kidney and pancreas transplants on immunosuppressive therapy Patient seen and examined with sister present Clinically the foot is improving without local signs of infection. Wound vac removed for evaluation and dry dressing applied for temporary coverage. Continue wound vac therapy, 150mmHg, every other day, continuous. Cultures with Citrobacter freundii, serratia liquefaciens group, patient on IV antibiotics. Infectious disease/Dr. Amato on consult. No weightbearing left foot, keep foot elevated. LEAS noninvasive LE arterial show right TBI 0.62,GERALDINE 0.69 and left TBI 0.26, GERALDINE 0.73 are less than optimal and may impact wound healing. Discussed this with patient. Podiatry will continue to follow weekly while in house; follow up at wound care center at time of discharge. Edna Henderson DPM, [facility] [phone]
--- NOTE | 2020-08-03 14:38 | DCINST_ITS ---
Discharge Diet: No Restrictions Discharge Activity: Return to Normal Activity, Use Walker Weight Bearing Status: No weight bearing Keep extremity elevated above heart level: Left Leg Call your doctor if your incision/area has: Continuous Slow Oozing, Sudden Incr eased Bleeding, Increased Pain/ Swelling, Increased Redness, Foul Smelling Discharge, Swelling at the incision site Call your doctor if you observe: Fever of 101 or Higher, Inability to urinate, Inability to have a bowel movement, Shortness of breath, Chest pain, Uncontrolled pain Cleanse incision/area with: Keep Dressing Clean & Dry, - - wear surgical shoe for protection Additional Dressing/Incision Instructions:: wound vac 150 mmHg q 48-72 hours left foot with careful bridging to dorsal foot. pad dorsal foot well to avoid dressing injuries prior to kerlix, abd, and mary beth wrap application Allergies/Adverse Reactions: Allergies doxazosin Adverse Reaction (Verified 07/20/20 16:38) Rash doxycycline Adverse Reaction (Verified 07/20/20 16:38) Rash Penicillins Adverse Reaction (Verified 07/20/20 16:38) Rash Medications to take at Discharge Mycophenolate Mofetil [Cellcept] 500 mg PO BID 07/09/20 Tacrolimus Anhydrous [Prograf] 2 mg PO DAILY@199907/10/20 Tacrolimus Anhydrous [Prograf] 3 mg PO DAILY@0800 07/10/20 Acetaminophen [Tylenol] 1,000 mg PO Q6H PRN PRN tab 08/02/20 Nutritional Supplement [Gaudencio - ORANGE FLAVOR] 1 packet PO BIDCM #60 packet 08/02/20 Smz/Tmp Ds [Bactrim Ds] 1 tab PO BIDCM #54 tab 08/02/20 The following prescriptions were given: Smz/Tmp Ds [Bactrim Ds] 1 tab PO BIDCM #54 tab Transmission Status: Received by [facility]/pharmacy #[id number] Nutritional Supplement [Gaudencio - ORANGE FLAVOR] 1 packet PO BIDCM #60 packet Transmission Status: Received by [facility]/pharmacy #[id number] Primary Care Physician: Tung Isaac MD [Primary Care Provider] - Please follow up with your Primary Care Physician in: 1 week. Test Results: Test results from this visit will be discussed in further detail at your follow- up appointment, if applicable. Please Follow Up With: Clinic,Wound When: 1 week or at [facility] if schedule full; call [phone]. Please Follow Up With: Dr. Tung Isaac Proposed Discharge Date: 08/05/20
--- NOTE | 2020-08-03 15:31 | CASEMGMT ---
Social Work Madelin contacted SW that insurance does not cover knee sling for walker, but the left platform and walker is covered and will be delivered to the pt room prior to discharge. Spoke with pt and informed him of above- Explained pt can purchase/forklift picker knee sling at [facility] in [place] at [place] - pt expressed understanding. So Bello, [employer]UM[employer] OPERATOR RETIREMENT PLAN COUNSELOR
[2020-08-03 16:00] VITALS: BP 118/58; PULSE 61; RESP 16; TEMP 36.8; O2SAT 99
--- NOTE | 2020-08-03 18:25 | NURSING ---
Pt was upset after he was told that the hospital was not going to supply him a knee sling for his walker. Called physical therapy and asked them and let them know he is leaving on Sat.. Physical therapy stated they will work with [employer] and make sure he receives one.
[2020-08-03] MEDS: Tacrolimus Anhydrous 1 MG Capsule 2 MG PO (20:20)
[2020-08-04 05:21] VITALS: BP 99/60; PULSE 77; RESP 16; TEMP 36.5; O2SAT 95
[2020-08-04] MEDS: Enoxaparin 40 MG/0.4 ML Syringe SC (05:23)
[2020-08-04 06:03] LABS: Anion Gap 9 (5-15); BUN 30 mg/dL (7-18); BUN/Creat Ratio 22.4 RATIO (10-20); Calcium,Total 8.7 mg/dL (8.5-10.1); Chloride 106 mmol/L (98-107); Creatinine, Serum 1.34 mg/dL (0.70-1.30); EST Glomerular Filtration Rate 59 mL/min (>60); Est Glom Filt Rate - Afr Amer 71 mL/min (>60); Estimated Creatinine Clearance 62.29 ml/min; Glucose 102 mg/dL (74-106); Sodium Level 138 mmol/L (136-145)
[2020-08-04] MEDS: Tacrolimus Anhydrous 1 MG Capsule 3 MG PO (07:57)
[2020-08-04] MEDS: Mycophenolate Mofetil 250 MG Capsule 500 MG PO ×2 (07:57→20:03)
[2020-08-04] MEDS: Smz/Tmp Ds Tablet 1 TABLET PO ×2 (07:57→17:40)
--- NOTE | 2020-08-04 09:22 | PT ---
Pt very upset when this PREPARATOR entered room. Pt yelling at this PREPARATOR and upset because knee sling for walker is not covered by insurance. Pt will need to go to [facility] to continuous pickling line pickler knee sling once leaving the hospital. FWW with platform will be delivered today by [employer]. Pt upset he has to continuous pickling line pickler knee sling. Explained to pt that this is out of staff's control due to insurance company not covering knee sling. Pt raised voice louder and began swearing at PREPARATOR. SW brought into room with this PREPARATOR. SW explained again that walker will be delivered today and that pt can go to [facility] to continuous pickling line pickler knee sling once leaving the hospital. SW also explained that she can call pt's sister to continuous pickling line pickler knee sling at [facility] and then have her bring sling to the hospital prior to pt's discharge tomorrow. Pt began yelling louder and asked staff to leave his room.
--- NOTE | 2020-08-04 09:35 | CASEMGMT ---
Addendum entered by So Bello 08/04/20 14:02: Knee sling and platform walker delivered to pt's room. Explained therapy will be in this afternoon to put the knee sling on walker and ensure everything is working properly. Pt became tearful and stated I'm very sorry for how I spoke to you earlier, it was a bad morning, and I never speak to women like that and it's taring me up inside. I'm just ready to go home. SW expressed appreciation for apology. Provided empathy for in room isolation and visitor restrictions. Again offered for lab work - pt stated no, he received lab draw this morning. Pt expressed appreciation for all of SW assistance throughout stay. Original Note: Social Work LINEN ROOM HOUSEPERSON asked for SW assistance in patient's room as he is yelling about insurance not covering knee sling. Entered pt's room, and without SW speaking to pt, pt began yelling at SW, visibly upset, stating it is a safety issue that pt will not have knee sling prior to pt DC and I will get my resp ther involved with the hospital. Reiterated calmly to pt that [employer] will deliver platform FWW to pt room, but insurance does not cover knee sling and pt would need to pick that up at [facility]. Pt still upset and stating he is not leaving the hospital until he has that knee sling and stated this worker needed to go chart picker with sling from the store for him to leave. Explained SW is unable to complete that task but this worker will contact sister to pick it up - pt snapped back, why should my sister have to pick it up, she shouldn't have to do that, you should have to do that. Again explained SW is unable to but will call sister to arrange. Pt still very upset. SW attempted to calmly converse with pt but he was getting more upset with SW trying to calm him down. Inquired what else is going on, is there anything else upsetting pt - pt yelling again, that his dad was here before and this hospital killed him and now we are doing the same to him. Why hasn't he gotten labs drawn because his creatine was high and he had a liver transplant and that could be deadly. Offered several times to get labs drawn for pt - pt waving off SW and asked for LINEN ROOM HOUSEPERSON and SW to leave room. Pt emotional and tearing up at this time - again attempted to offer support and provide interventions, but pt adamant about staff leaving pt room. Exited room. Contacted Andreia Diaz about knee sling, Hope, offered to pull sling from shelf and hold under pt's name for sister to chart picker - reiterated Medicare nor Medicaid insurance will cover sling - it is about $89 out of pocket. Contacted sister Zayra to get Nancy's accurate phone number - Zayra provide number but explained even thought pt is DC to Nancy's house, she is picking up pt and getting meds, etc. Briefly explained the situation to sister - explained Andreia Diaz has it on hold for her to chart picker. Zayra will chart picker sling this date and bring it to the hospital for therapy to attach properly to walker. Zayra appreciative. Notified nursing on creatine and lab concerns. Updated sister's contact information in pt chart. Will continue to follow. So Bello, RESIDENTIAL CONSTRUCTION INSTRUCTOR TEACHER AIDE CLERICAL
--- NOTE | 2020-08-04 10:31 | CASEMGMT ---
Social Work BIMS and PHQ-9 completed for MDS assessment. So Bello, CRACKLING PRESS OPERATOR ASSISTANT WRESTLING COACH
--- NOTE | 2020-08-04 10:59 | NURSING ---
Pt switched over to the home VAC. reviewed alarms, etc. with patient. proof of delivery signed and faxed back to [facility]. pt denies questions.
[2020-08-04 13:43] VITALS: BP 98/51; PULSE 68; RESP 17; TEMP 36.6; O2SAT 94
[2020-08-04] MEDS: Tacrolimus Anhydrous 1 MG Capsule 2 MG PO (20:03)
[2020-08-04] MEDS: Acetaminophen 500 MG Tablet 1000 MG PO (20:06)
[2020-08-05] MEDS: Enoxaparin 40 MG/0.4 ML Syringe SC (05:49)
[2020-08-05 05:51] VITALS: BP 108/59; PULSE 78; RESP 18; TEMP 37; O2SAT 95
[2020-08-05] MEDS: Mycophenolate Mofetil 250 MG Capsule 500 MG PO (08:16)
[2020-08-05] MEDS: Smz/Tmp Ds Tablet 1 TABLET PO (08:16)
[2020-08-05] MEDS: Tacrolimus Anhydrous 1 MG Capsule 3 MG PO (08:17)
[2020-08-05 10:00] VITALS: PULSE 90; RESP 18; O2SAT 93
[2020-08-05 10:23] VITALS: BP 127/78; PULSE 90; RESP 18; TEMP 36.5; O2SAT 93
[2020-08-07 17:44] LABS: Tacrolimus (FK506) 6.3 ng/mL (2.0-20.0)
== END 2020-08-05 10:40 | disposition home health service (06) | DRG 559 ==
PROVIDERS: Admitting Provider Family Medicine Geriatric Medicine; PCP Family Medicine; Referring Provider Family Medicine Geriatric Medicine; Visit Provider Family Medicine Geriatric Medicine
DX: Z47.81 Encounter for orthopedic aftercare following surgical amputation (principal); N18.6 End stage renal disease; L03.116 Cellulitis of left lower limb; I12.0 Hypertensive chronic kidney disease with stage 5 chronic kidney disease or end stage renal disease; Z94.0 Kidney transplant status; Z94.83 Pancreas transplant status; M86.172 Other acute osteomyelitis, left ankle and foot; Z89.432 Acquired absence of left foot; E11.22 Type 2 diabetes mellitus with diabetic chronic kidney disease; E11.69 Type 2 diabetes mellitus with other specified complication; E11.41 Type 2 diabetes mellitus with diabetic mononeuropathy
CPT/HCPCS: 36415; 80048; 80197; 85025; 87426; 87635; 97110; 97116; 97162; 97166; 97530; 97535; 97802; U0003

== ENCOUNTER 2020-08-30 09:56 | Outpatient (RCR) | payer MEDICARE, MEDICAID, SELFPAY ==
[2020-08-30 10:39] VITALS: BP 132/69; PULSE 87; RESP 18; TEMP 35.7; BMI 27.0
--- NOTE | 2020-08-30 11:52 | PCM.WC.HP ---
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 Valdez. He subsequently has been treated with a comprehensive wound healing plan including offloading, serial debridement, and termite control servicer course of IV antibiotics under the management of infectious disease. He has recently been utilizing a wound VAC. He presents to clinic with his sister Mitzi today. He uses a surgical shoe and put weight on his heel to offload and also uses a wheelchair at times. Past Medical History Past Medical History: Chronic Problems (Last Updated 07/09/20 @ 22:[address] 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 (Chronic) Surgical History: - - Eye laser surgery, pancreas transplant, renal transplant, foot debridement including bone Allergies/Adverse Reactions: Allergies doxazosin Adverse Reaction (Verified 07/20/20 16:38) Rash doxycycline Adverse Reaction (Verified 07/20/20 16:38) Rash Penicillins Adverse Reaction (Verified 07/20/20 16:38) Rash Home Medications: Ambulatory Orders Medication Instructions Recorded Mycophenolate Mofetil [Cellcept] 500 mg PO BID 07/09/20 Tacrolimus Anhydrous [Prograf] 2 mg PO DAILY@199907/10/20 Tacrolimus Anhydrous [Prograf] 3 mg PO DAILY@0800 07/10/20 Acetaminophen [Tylenol] 1,000 mg PO Q6H PRN PRN tab 08/02/20 Nutritional Supplement [Gaudencio - 1 packet PO BIDCM #60 packet 08/02/20 OR[facility] FLAVOR] Smz/Tmp Ds [Bactrim Ds] 1 tab PO BIDCM #54 tab 08/02/20 - Family History Maternal Diabetes, - - Parkinson's disease Paternal COPD, Diabetes Smoking Status: Never smoker Review of Systems Constitutional: Denies: Chills, Fever Cardiovascular: Denies: Claudication Respiratory: Denies: Cough, Shortness of Breath Gastrointestinal: Denies: Nausea, Vomiting Musculoskeletal: Denies: Leg Pain Skin: Reports: Skin Changes, Wounds Neurological: Reports: Numbness - Physical Exam Vital Signs Temp Pulse Resp BP 96.2 F L 87 18 132/69 H 08/30/20 10:39 08/30/20 10:39 08/30/20 10:39 08/30/20 10:39 General: Alert, Oriented x3, Cooperative, No apparent distress HEENT: Atraumatic Extremities: No cyanosis, No edema, Capillary Refill Less than 3 Seconds, No Calf Tenderness, Diminished Peripheral Pulses Skin: Ulcer/ Wound - No purulence, erythema, streaking, odor, infection. There is subcutaneous tissue visualized only to the plantar ulcer. There is also now a skin discontinuity to the dorsal foot where there is prior eschar and potential dressing injury. His skin is atrophic and hairless Wound Measurements and Assessment WC - Nurse 1 - General Ulcer Measurement Start: 08/30/20 10:39 Freq: Status: Active Protocol: Activity Type Activity Date Activity User E-Sign Co-Sign Detail Recorded Client Recorded Date Recorded By Document 08/30/20 10:39 RB [id number] 08/30/20 10:45 RB 08/30/20 10:39 Wound Center Nurse 1 [Ulcer Assessment] 1. L foot plantar -Combined with other wound No -Current Size (cm) - Length 1.5 -Current Size (cm) - Width 2 -Current Size (cm) - Depth 0.5 -Total Square Cm 3.0 -Tunneling No -Undermining/Tunneling No -Circular Undermining No -Exudate Amt Medium -Exudate Type Serosanguineous -Wound Margin Flat & Intact -Granulation Amt Medium (34-66%) -Granulation Quality [place],Red -Slough/Fibrin Yes -Necrosis Amt Small (1-33%) -Necrotic Tissue Type Adherent Slough -Structure Exposed N/A -Texture (Nilda-wound Skin Appearance) Assessed -Moisture (Nilda-wound Skin Appearance Assessed ) -Color (Nilda-wound Skin Appearance) Assessed -Temperature (Nilda-wound Skin No Abnormality Appearance) (Pt Warm) -Tenderness on Palpation (Nilda-wound No Skin Appearance) -Ulcer Cleansing Wound Cleanser -Foul Odor after Cleansing No -Anesthetic Used 4% Lidocaine Solution [Edema Assessment] -Lower Limb Edema Present Yes -Right Calf (cm) 37 -Right Ankle (cm) 20.7 -Left Calf (cm) 35 -Left Ankle (cm) 20 WC - Nurse 2 - General Ulcer CM Notes Start: 08/30/20 10:39 Freq: Status: Active Protocol: Activity Type Activity Date Activity User E-Sign Co-Sign Detail Recorded Client Recorded Date Recorded By Document 08/30/20 11:05 ERNESTINE [id number] 08/30/20 11:09 ERNESTINE 08/30/20 11:05 Wound Center Nurse 2 [Procedure/Treatment] 2-left dorsal foot -Time 11:16 -Correct Patient Yes -Correct Side, Site, Position Yes -Correct Procedure Yes -Procedure Performed Yes -Type of Procedure Debridement -Clinical Debridement Subcutaneous -Tissue Removed Subcutaneous -Post Debridement (cm) - Length 1.2 -Post Debridement (cm) - Width 1.0 -Post Debridement (cm) - Depth 0.1 -Total Square (Post) (cm) 1.20 -Area of Debridement (cm) - Length 1.2 -Area of Debridement (cm) - Width 1.0 -Total Square (Area) (cm) 1.20 -Tunneling No -Undermining/Tunneling No -Circular Undermining No -Wound/Ulcer Outcome Not Healed -Ulcer Cleansing Rinsed/ Irrigated with Saline -Foul Odor after Cleansing No -Bioengineered Tissue No -Bleeding Controlled with Pressure -Offloading Yes -Type of Offloading Surgical Shoe -Treatment Response Procedure Tolerated Well -Debridement - Subq, 1st 20sq cm No 1. L foot plantar -Time 11:07 -Correct Patient Yes -Correct Side, Site, Position Yes -Correct Procedure Yes -Procedure Performed Yes -Type of Procedure Debridement -Clinical Debridement Subcutaneous -Tissue Removed Subcutaneous -Post Debridement (cm) - Length 1.5 -Post Debridement (cm) - Width 2.1 -Post Debridement (cm) - Depth 0.5 -Total Square (Post) (cm) 3.15 -Area of Debridement (cm) - Length 1.5 -Area of Debridement (cm) - Width 2.1 -Total Square (Area) (cm) 3.15 -Tunneling No -Undermining/Tunneling No -Circular Undermining No -Wound/Ulcer Outcome Not Healed -Ulcer Cleansing Rinsed/ Irrigated with Saline -Foul Odor after Cleansing No -Bioengineered Tissue No -Bleeding Controlled with Pressure -Offloading Yes -Type of Offloading Surgical Shoe -Treatment Response Procedure Tolerated Well -Debridement - Subq, 1st 20sq cm Yes [See Physician Procedure note for Specifics] Pain Scale: 0-10 Numeric [Pain] -Is Patient Pain Free? Yes - Nurse 3 - General Ulcer D/C NN Start: 08/30/20 10:39 Freq: Status: Active Protocol: Activity Type Activity Date Activity User E-Sign Co-Sign Detail Recorded Client Recorded Date Recorded By Document 08/30/20 11:31 [facility] [id number] 08/30/20 11:32 [facility] 08/30/20 11:31 Wound Care Nurse 3 [Wound Dressing] 2-left dorsal foot -Ulcer Cleansing Rinsed/ Irrigated with Saline -Foul Odor after Cleansing No -Primary Dressing Applied Aquacel AG 4x4 -Primary Dressing Covered/Secured Dry Gauze & with Roll Gauze, Secured with Tape -Aquacel AG 4x4 1 1. L foot plantar -Ulcer Cleansing Rinsed/ Irrigated with Saline -Foul Odor after Cleansing No -Primary Dressing Applied Aquacel AG 4x4 -Primary Dressing Covered/Secured Dry Gauze & with Roll Gauze, Secured with Tape -Aquacel AG 4x4 0 [Post Procedure Tolerated] -Treatment Response Procedure Tolerated Well Pain Scale: 0-10 Numeric [Pain] -Is Patient Pain Free? Yes - Visit Discharge [Visit Discharge Information] -Discharge Condition Stable -Ambulatory Status Wheelchair -Transportation Private Auto -Accompanied by sister [Facility Notification] -Facility Type Home Health Musculoskeletal: No Tenderness to Palpation of Joints or Extremities, Muscle Wasting, - - Second toe amputation. Compartments soft. No bogginess or fluctuance on palpation Neurological: - Psych/Mental Status: Normal Affect - Full sensation is not intact, Appropriate Debridement Note Post-Debridement Measurements/Treatment WC - Nurse 2 - General Ulcer CM Notes Start: 08/30/20 10:39 Freq: Status: Active Protocol: Activity Type Activity Date Activity User E-Sign Co-Sign Detail Recorded Client Recorded Date Recorded By Document 08/30/20 11:05 ERNESTINE [id number] 08/30/20 11:09 ERNESTINE 08/30/20 11:05 Wound Center Nurse 2 2-left dorsal foot -Time 11:16 -Correct Patient Yes -Correct Side, Site, Position Yes -Correct Procedure Yes -Procedure Performed Yes -Type of Procedure Debridement -Clinical Debridement Subcutaneous -Tissue Removed Subcutaneous -Post Debridement (cm) - Length 1.2 -Post Debridement (cm) - Width 1.0 -Post Debridement (cm) - Depth 0.1 -Total Square (Post) (cm) 1.20 -Area of Debridement (cm) - Length 1.2 -Area of Debridement (cm) - Width 1.0 -Total Square (Area) (cm) 1.20 -Tunneling No -Undermining/Tunneling No -Circular Undermining No -Wound/Ulcer Outcome Not Healed -Ulcer Cleansing Rinsed/ Irrigated with Saline -Foul Odor after Cleansing No -Bioengineered Tissue No -Bleeding Controlled with Pressure -Offloading Yes -Type of Offloading Surgical Shoe -Treatment Response Procedure Tolerated Well -Debridement - Subq, 1st 20sq cm No 1. L foot plantar -Time 11:07 -Correct Patient Yes -Correct Side, Site, Position Yes -Correct Procedure Yes -Procedure Performed Yes -Type of Procedure Debridement -Clinical Debridement Subcutaneous -Tissue Removed Subcutaneous -Post Debridement (cm) - Length 1.5 -Post Debridement (cm) - Width 2.1 -Post Debridement (cm) - Depth 0.5 -Total Square (Post) (cm) 3.15 -Area of Debridement (cm) - Length 1.5 -Area of Debridement (cm) - Width 2.1 -Total Square (Area) (cm) 3.15 -Tunneling No -Undermining/Tunneling No -Circular Undermining No -Wound/Ulcer Outcome Not Healed -Ulcer Cleansing Rinsed/ Irrigated with Saline -Foul Odor after Cleansing No -Bioengineered Tissue No -Bleeding Controlled with Pressure -Offloading Yes -Type of Offloading Surgical Shoe -Treatment Response Procedure Tolerated Well -Debridement - Subq, 1st 20sq cm Yes Pain Scale: 0-10 Numeric Is Patient Pain Free? Yes - Nurse 3 - General Ulcer D/C NN Start: 08/30/20 10:39 Freq: Status: Active Protocol: Activity Type Activity Date Activity User E-Sign Co-Sign Detail Recorded Client Recorded Date Recorded By Document 08/30/20 11:31 [facility] [id number] 08/30/20 11:32 [facility] 08/30/20 11:31 Wound Care Nurse 3 2-left dorsal foot -Ulcer Cleansing Rinsed/ Irrigated with Saline -Foul Odor after Cleansing No -Primary Dressing Applied Aquacel AG 4x4 -Primary Dressing Covered/Secured with Dry Gauze & Roll Gauze, Secured with Tape -Aquacel AG 4x4 1 1. L foot plantar -Ulcer Cleansing Rinsed/ Irrigated with Saline -Foul Odor after Cleansing No -Primary Dressing Applied Aquacel AG 4x4 -Primary Dressing Covered/Secured with Dry Gauze & Roll Gauze, Secured with Tape -Aquacel AG 4x4 0 Treatment Response Procedure Tolerated Well Pain Scale: 0-10 Numeric Is Patient Pain Free? Yes WC - Visit Discharge Discharge Condition Stable Ambulatory Status Wheelchair Transportation Private Auto Accompanied by sister Facility Type Home Health Wound debrided: dorsal foot Laterality: Left Wound Grade/Stage: grade 1 Type of Debridement: Excisional debridement Anesthesia Used: 5% Lidocaine Gel Depth: in the subcutaneous layer Percentage of wound debrided: 100 Instrument Used: #15 blade Tissue Removed: fibrous, devitalized subcutaneous, biofilm, slough Severity: Fat Layer Exposed Amount of bleeding with debridement: Mild Bleeding Controlled with: Pressure Patient tolerated procedure well - Additional Wound Wound debrided: plantar forefoot Laterality: Left Wound Grade/Stage: grade 1 Type of Debridement: Excisional debridement Anesthesia Used: 5% Lidocaine Gel Depth: in the subcutaneous layer Percentage of wound debrided: 100 Instrument Used: #15 blade Tissue Removed: fibrous, devitalized subcutaneous, biofilm, slough Severity: Fat Layer Exposed Amount of bleeding with debridement: Mild Bleeding Controlled with: Pressure Patient tolerated procedure: Patient tolerated procedure well Assessment/Plan Active Problems (Last Updated 07/09/20 @ 22:[address] 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 Diabetes. Renal disease. Dorsal foot ulcer with fat layer exposed. Small vessel disease. Delayed healing Plan: I reviewed and discussed his case. He is reassured no local signs of infection are noted locally or systemically. To monitor closely. Subcutaneous excisional debridement was performed as noted in the clinical panel. I recommend holding the wound VAC to change the dressing daily with Beleza na [employer] Ag. To wash with Dial soap and water. To continue strict offloading with wheelchair use and surgical shoe with offloading liners. I recommend application of advanced wound healing product, epicord and epifix for limb salvage. Is medically necessary and prior authorization will be initiated. The benefits, application course, and anticipated healing time and management were discussed. He is amendable to proceed. His last blood flow studies were reviewed from 07-26-2020 with oral ABIs and ankle waveforms. There are diminished toe pressures which are consistent with small vessel disease on the left lower extremity. To follow-up with vascular surgery as previously advised. I will confirm his prior intervention if any with medical records release request. Continue with nutritional supplementation Gaudencio to optimize healing. To return to clinic in 1 week or call sooner if he has any questions or concerns.
== END 2020-09-04 23:59 ==
LOC: WC 09:56
PROVIDERS: PCP Family Medicine; Referring Provider Podiatrist; Visit Provider Podiatrist
DX: E11.621 Type 2 diabetes mellitus with foot ulcer (principal); L97.524 Non-pressure chronic ulcer of other part of left foot with necrosis of bone; I73.9 Peripheral vascular disease, unspecified; N18.6 End stage renal disease; E11.22 Type 2 diabetes mellitus with diabetic chronic kidney disease; I12.0 Hypertensive chronic kidney disease with stage 5 chronic kidney disease or end stage renal disease; Z88.0 Allergy status to penicillin; Z88.1 Allergy status to other antibiotic agents; Z94.83 Pancreas transplant status; Z94.0 Kidney transplant status; I67.82 Cerebral ischemia
CPT/HCPCS: 11042; 99213; G0463

== ENCOUNTER 2020-10-04 09:30 | Outpatient (RCR) | payer MEDICARE, MEDICAID, SELFPAY ==
[2020-09-05 00:42] VITALS: BP 132/69; PULSE 87; RESP 18; TEMP 35.7
[2020-09-06 10:34] VITALS: BP 111/58; PULSE 88; RESP 18; TEMP 36.4; BMI 27.0
[2020-09-06 11:41] VITALS: BP 110/60
--- NOTE | 2020-09-06 11:47 | PN.PCM_ITS ---
(1) Ulcer of left foot with fat layer exposed Status: Chronic Code(s): L97.522 - Non-pressure chronic ulcer of other part of left foot with fat layer exposed (2) Delayed wound healing Status: Chronic Code(s): T14.8XXD - Other injury of unspecified body region, subsequent encounter (3) Peripheral vascular disease Status: Suspected Code(s): I73.9 - Peripheral vascular disease, unspecified (4) ESRD (end stage renal disease) Status: Chronic Code(s): N18.6 - End stage renal disease (5) Diabetes Status: Chronic Qualifiers: Diabetes mellitus type: type 2 Diabetes mellitus complication detail: with polyneuropathy Code(s): E11.9 - Type 2 diabetes mellitus without complications Comment: e11.42 Type of Wound Date of Service: 09/06/20 Chief Complaint: Left foot ulcer History of Wound: This 55-year-old male sustained a foot infection in which she went for emergent surgery on 07-21-2020 at [facility] with Dr. Valdez. 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 He has recently been utilizing a wound VAC. He presents to clinic with his sister Mitzi today. He uses a surgical shoe and put weight on his heel to offload and also uses a wheelchair at times. At this time he qualifies for application of advanced wound healing product and is amendable to proceed for today. Progress of Wound: Stable - Physical Exam Vital Signs Temp Pulse Resp BP 97.5 F L 88 18 110/60 09/06/20 10:34 09/06/20 10:34 09/06/20 10:34 09/06/20 11:41 General: Alert, Oriented x3, Cooperative, No apparent distress HEENT: Atraumatic Extremities: No cyanosis, Capillary Refill Less than 3 Seconds, No Calf Tenderness, Diminished Peripheral Pulses, Edema - Decreased Skin: Ulcer/ Wound - No purulence, erythema, streaking, odor, infection, necros is or exposed bone or capsule tissue today. The adjacent skin is hairless and atrophic Wound Measurements and Assessment WC - Nurse 1 - General Ulcer Measurement Start: 09/06/20 10:34 Freq: Status: Active Protocol: Activity Type Activity Date Activity User E-Sign Co-Sign Detail Recorded Client Recorded Date Recorded By Document 09/06/20 10:34 RB [id number] 09/06/20 10:47 RB 09/06/20 10:34 Wound Center Nurse 1 [Ulcer Assessment] 2-left dorsal foot -Combined with other wound No -Current Size (cm) - Length 0.1 -Current Size (cm) - Width 0.1 -Current Size (cm) - Depth 0.1 -Total Square Cm 0.01 -Tunneling No -Undermining/Tunneling No -Circular Undermining No -Exudate Amt None Present -Wound Margin Flat & Intact -Granulation Amt Small (1-33%) -Granulation Quality Drumright -Slough/Fibrin Yes -Necrosis Amt Large (67-100%) -Necrotic Tissue Type Eschar -Structure Exposed N/A -Texture (Nilda-wound Skin Appearance) Assessed, Scarring -Moisture (Nilda-wound Skin Appearance Assessed ) -Color (Nilda-wound Skin Appearance) Assessed -Temperature (Nilda-wound Skin No Abnormality Appearance) (Pt Warm) -Tenderness on Palpation (Nilda-wound No Skin Appearance) -Ulcer Cleansing Wound Cleanser -Foul Odor after Cleansing No -Anesthetic Used 4% Lidocaine Solution 1. L foot plantar -Combined with other wound No -Current Size (cm) - Length 1.5 -Current Size (cm) - Width 1.9 -Current Size (cm) - Depth 0.5 -Total Square Cm 2.85 -Tunneling No -Undermining/Tunneling No -Circular Undermining No -Exudate Amt Large -Exudate Type Serosanguineous -Wound Margin Thickened & Rolled Under -Necrosis Amt Small (1-33%) -Necrotic Tissue Type Adherent Slough -Structure Exposed N/A -Texture (Nilda-wound Skin Appearance) Assessed -Moisture (Nilda-wound Skin Appearance Assessed,Dry/ ) Scaly -Color (Nilda-wound Skin Appearance) Erythema -Temperature (Nilda-wound Skin No Abnormality Appearance) (Pt Warm) -Tenderness on Palpation (Nilda-wound No Skin Appearance) -Ulcer Cleansing Wound Cleanser -Foul Odor after Cleansing No -Anesthetic Used 4% Lidocaine Solution WC - Nurse 2 - General Ulcer CM Notes Start: 09/06/20 10:34 Freq: Status: Active Protocol: Activity Type Activity Date Activity User E-Sign Co-Sign Detail Recorded Client Recorded Date Recorded By Document 09/06/20 11:34 [id number] 09/06/20 11:37 ERNESTINE 09/06/20 11:34 Wound Center Nurse 2 [Procedure/Treatment] 2-left dorsal foot -Correct Patient No -Correct Side, Site, Position No -Correct Procedure No -Procedure Performed No -Tunneling No -Undermining/Tunneling No -Circular Undermining No -Wound/Ulcer Outcome Not Healed -Debridement - Subq, 1st 20sq cm No 1. L foot plantar -Time 11:35 -Correct Patient Yes -Correct Side, Site, Position Yes -Correct Procedure Yes -Procedure Performed Yes -Type of Procedure Debridement -Clinical Debridement Subcutaneous -Tissue Removed Subcutaneous -Post Debridement (cm) - Length 1.5 -Post Debridement (cm) - Width 2 -Post Debridement (cm) - Depth 0.5 -Total Square (Post) (cm) 3.0 -Area of Debridement (cm) - Length 1.5 -Area of Debridement (cm) - Width 2 -Total Square (Area) (cm) 3.0 -Tunneling No -Undermining/Tunneling No -Circular Undermining No -Wound/Ulcer Outcome Not Healed -Ulcer Cleansing Rinsed/ Irrigated with Saline -Foul Odor after Cleansing No -Bioengineered Tissue Yes -Type of Bioengineered Tissue Epicord -Expiration Date 02/03/25 -Product Lot Number [id number] -Percent Used 100 -Bleeding Controlled with Pressure -Other saline [id number] -Offloading Yes -Type of Offloading Surgical Shoe -Debridement - Subq, 1st 20sq cm No -Apply Skin Sub - 1st 25 sq cm - Feet 1 -Epicord (per sq cm) 6 [See Physician Procedure note for Specifics] Pain Scale: 0-10 Numeric [Pain] -Is Patient Pain Free? Yes WC - Nurse 3 - General Ulcer D/C NN Start: 09/06/20 10:34 Freq: Status: Active Protocol: Activity Type Activity Date Activity User E-Sign Co-Sign Detail Recorded Client Recorded Date Recorded By Document 09/06/20 11:41 RB [id number] 09/06/20 11:42 RB 09/06/20 11:41 Wound Care Nurse 3 [Wound Dressing] 2-left dorsal foot -Primary Dressing Covered/Secured Dry Gauze,Dry with Gauze & Roll Gauze,Secured with Tape 1. L foot plantar -Primary Dressing Covered/Secured Dry Gauze,Dry with Gauze & Roll Gauze,Secured with Tape [Compression Applied] Left -Other mary beth [Post Procedure Tolerated] -Treatment Response Procedure Tolerated Well Vital Signs [Blood Pressure] -Blood Pressure (90/60-120/80) 110/60 -Blood Pressure Mean (mm Hg) 76 -Source Monitor -Position Sitting -Blood Pressure Location Right Arm Pain Scale: 0-10 Numeric [Pain] -Is Patient Pain Free? Yes WC - Visit Discharge [Visit Discharge Information] -Discharge Condition Stable -Ambulatory Status Wheelchair -Transportation Private Auto -Medication Reconcilliation completed No & provided to patient/care provider -Clinical Summary of Care Provided Yes Musculoskeletal: No Tenderness to Palpation of Joints or Extremities, Muscle Wasting, - - Second toe amputation, left Neurological: - - Altered sensation light touch Psych/Mental Status: Normal Affect, Appropriate Debridement Note Post-Debridement Measurements/Treatment WC - Nurse 2 - General Ulcer CM Notes Start: 09/06/20 10:34 Freq: Status: Active Protocol: Activity Type Activity Date Activity User E-Sign Co-Sign Detail Recorded Client Recorded Date Recorded By Document 09/06/20 11:34 ERNESTINE [id number] 09/06/20 11:37 ERNESTINE 09/06/20 11:34 Wound Center Nurse 2 2-left dorsal foot -Correct Patient No -Correct Side, Site, Position No -Correct Procedure No -Procedure Performed No -Tunneling No -Undermining/Tunneling No -Circular Undermining No -Wound/Ulcer Outcome Not Healed -Debridement - Subq, 1st 20sq cm No 1. L foot plantar -Time 11:35 -Correct Patient Yes -Correct Side, Site, Position Yes -Correct Procedure Yes -Procedure Performed Yes -Type of Procedure Debridement -Clinical Debridement Subcutaneous -Tissue Removed Subcutaneous -Post Debridement (cm) - Length 1.5 -Post Debridement (cm) - Width 2 -Post Debridement (cm) - Depth 0.5 -Total Square (Post) (cm) 3.0 -Area of Debridement (cm) - Length 1.5 -Area of Debridement (cm) - Width 2 -Total Square (Area) (cm) 3.0 -Tunneling No -Undermining/Tunneling No -Circular Undermining No -Wound/Ulcer Outcome Not Healed -Ulcer Cleansing Rinsed/ Irrigated with Saline -Foul Odor after Cleansing No -Bioengineered Tissue Yes -Type of Bioengineered Tissue Epicord -Expiration Date 02/03/25 -Product Lot Number [id number] -Percent Used 100 -Bleeding Controlled with Pressure -Other saline [id number] -Offloading Yes -Type of Offloading Surgical Shoe -Debridement - Subq, 1st 20sq cm No -Apply Skin Sub - 1st 25 sq cm - Feet 1 -Epicord (per sq cm) 6 Pain Scale: 0-10 Numeric Is Patient Pain Free? Yes - Nurse 3 - General Ulcer D/C NN Start: 09/06/20 10:34 Freq: Status: Active Protocol: Activity Type Activity Date Activity User E-Sign Co-Sign Detail Recorded Client Recorded Date Recorded By Document 09/06/20 11:41 [id number] 09/06/20 11:42 09/06/20 11:41 Wound Care Nurse 3 2-left dorsal foot -Primary Dressing Covered/Secured with Dry Gauze,Dry Gauze & Roll Gauze,Secured with Tape 1. L foot plantar -Primary Dressing Covered/Secured with Dry Gauze,Dry Gauze & Roll Gauze,Secured with Tape Left -Other mary beth Treatment Response Procedure Tolerated Well Vital Signs Blood Pressure (90/60-120/80) 110/60 Blood Pressure Mean (mm Hg) 76 Source Monitor Position Sitting Blood Pressure Location Right Arm Pain Scale: 0-10 Numeric Is Patient Pain Free? Yes WC - Visit Discharge Discharge Condition Stable Ambulatory Status Wheelchair Transportation Private Auto Medication Reconcilliation completed & No provided to patient/care provider Clinical Summary of Care Provided Yes Wound debrided: plantar distal foot Laterality: Left Wound Grade/Stage: grade 3 Type of Debridement: Excisional debridement Anesthesia Used: 5% Lidocaine Gel Depth: in the subcutaneous layer Percentage of wound debrided: 100 Instrument Used: #15 blade Tissue Removed: fibrous, devitalized subcutaneous, biofilm, slough Severity: Fat Layer Exposed Amount of bleeding with debridement: Mild Bleeding Controlled with: Pressure Patient tolerated procedure well Assessment/Plan Active Problems (Last Updated 07/09/20 @ 22:[address] Zachary Jean MD) Ulcer of left foot with fat layer exposed (Chronic) Delayed wound healing (Chronic) ESRD (end stage renal disease) (Chronic) Diabetes (Chronic) e11.42 Assessment: Left foot ulcer plantar, no infection. Eschar dorsal left foot, no infection. Diabetes with neuropathy. Renal disease. Small vessel disease. Delayed healing Plan: I reviewed and discussed his case. He was reassured no local signs of infection are noted locally or systemically. To monitor closely. Subcutaneous excisional debridement was performed as noted in the clinical panel to the plantar ulcer site. The dorsal eschar is well adhered and stable and debridement was not performed. I recommend discontinuation of the wound VAC. I recommend application of advanced wound healing product which is umbilical cord derived, epicord. He is amendable and provides verbal consent. This was applied according to standard protocol and was moistened with saline. This was further secured with a wound veil and Steri-Strips. He was advised to keep this clean, dry, and intact until follow-up next visit. A secondary dressing was applied. To continue strict offloading with wheelchair use and surgical shoe with offloading liners. I recommend application of advanced wound healing product, epicord and epifix for limb salvage. The benefits, application course, and anticipated healing time and management were discussed. His last blood flow studies were reviewed from 07-26-2020 with oral ABIs and ankle waveforms. There are diminished toe pressures which are consistent with small vessel disease on the left lower extremity. To follow-up with vascular surgery as previously advised. I will confirm his prior intervention if any with [facility] records release request. Continue with nutritional supplementation Gaudencio to optimize healing. To return to clinic in 1 week or call sooner if he has any questions or concerns.
[2020-09-13 10:15] VITALS: BP 97/59; PULSE 99; RESP 20; TEMP 35.9; BMI 27.0
--- NOTE | 2020-09-13 12:16 | PCM.WC.PN ---
(1) Ulcer of left foot with fat layer exposed Status: Chronic Code(s): L97.522 - Non-pressure chronic ulcer of other part of left foot with fat layer exposed (2) Delayed wound healing Status: Chronic Code(s): T14.8XXD - Other injury of unspecified body region, subsequent encounter (3) Peripheral vascular disease Status: Suspected Code(s): I73.9 - Peripheral vascular disease, unspecified (4) ESRD (end stage renal disease) Status: Chronic Code(s): N18.6 - End stage renal disease (5) Diabetes Status: Chronic Qualifiers: Diabetes mellitus type: type 2 Diabetes mellitus complication detail: with polyneuropathy Code(s): E11.9 - Type 2 diabetes mellitus without complications Comment: e11.42 (6) Eschar of foot Status: Chronic Code(s): R23.4 - Changes in skin texture Type of Wound Date of Service: 09/13/20 Chief Complaint: Left foot ulcer History of Wound: This 55-year-old male sustained a foot infection in which she went for emergent surgery on 07-21-2020 at [facility] with Dr. Valdez. 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 He has recently been utilizing a wound VAC. He presents to clinic with his twin sister. He uses a surgical shoe and put weight on his heel to offload and also uses a wheelchair at times. He had a plantar epicord applied last week and has kept this clean, dry, and intact. He has been applying a dry gauze to the top of his foot at the site of eschar. Progress of Wound: Stable - Physical Exam Vital Signs Temp Pulse Resp BP 96.7 F L 99 20 H 97/59 L 09/13/20 10:15 09/13/20 10:15 09/13/20 10:15 09/13/20 10:15 General: Alert, Oriented x3, Cooperative, No apparent distress Extremities: No cyanosis, No edema, Capillary Refill Less than 3 Seconds, No Calf Tenderness, Diminished Peripheral Pulses, - - Second toe amputation Skin: Ulcer/ Wound - No purulence, erythema, streaking, odor, infection. The plantar distal foot ulcer appears to be intact with the epicord incorporating. The wound veil and Steri-Strips are still intact. There are some dried hematogenous drainage at this site as well with no active bleeding., - - Dorsal foot eschar remains well adhered with adjacent dry skin with no hair. There is no bogginess or fluctuance on palpation Wound Measurements and Assessment WC - Nurse 1 - General Ulcer Measurement Start: 09/06/20 10:34 Freq: Status: Active Protocol: Activity Type Activity Date Activity User E-Sign Co-Sign Detail Recorded Client Recorded Date Recorded By Document 09/13/20 10:15 DL [id number] 09/13/20 10:23 DL 09/13/20 10:15 Wound Center Nurse 1 [Ulcer Assessment] 2-left dorsal foot -Current Size (cm) - Length 5.5 -Current Size (cm) - Width 3.2 -Current Size (cm) - Depth 0.1 -Total Square Cm 17.60 -Photo Taken No -Exudate Amt None Present -Wound Margin Indistinct, Non -Visible -Granulation Amt Small (1-33%) -Necrosis Amt Large (67-100%) -Necrotic Tissue Type Adherent Slough -Structure Exposed N/A -Texture (Nilda-wound Skin Appearance) Scarring -Moisture (Nilda-wound Skin Appearance Dry/Scaly ) -Color (Nilda-wound Skin Appearance) Erythema, Hemosiderin Staining,Rubor -Temperature (Nilda-wound Skin No Abnormality Appearance) (Pt Warm) -Tenderness on Palpation (Nilda-wound No Skin Appearance) -Ulcer Cleansing Wound Cleanser -Foul Odor after Cleansing No -Anesthetic Used 4% Lidocaine Solution 1. L foot plantar -Current Size (cm) - Length 0.1 -Current Size (cm) - Width 0.1 -Current Size (cm) - Depth 0.1 -Total Square Cm 0.01 -Photo Taken No -Exudate Amt Small -Exudate Type Serosanguineous -Wound Margin Distinct, Outline Attached -Texture (Nilda-wound Skin Appearance) Scarring -Temperature (Nilda-wound Skin No Abnormality Appearance) (Pt Warm) -Tenderness on Palpation (Nilda-wound No Skin Appearance) -Foul Odor after Cleansing No [Edema Assessment] -Left Calf (cm) 34.5 -Left Ankle (cm) 19.8 WC - Nurse 2 - General Ulcer CM Notes Start: 09/06/20 10:34 Freq: Status: Active Protocol: Activity Type Activity Date Activity User E-Sign Co-Sign Detail Recorded Client Recorded Date Recorded By Document 09/13/20 10:40 [id number] 09/13/20 10:45 09/13/20 10:40 Wound Center Nurse 2 [Procedure/Treatment] 2-left dorsal foot -Correct Patient No -Correct Side, Site, Position No -Correct Procedure No -Procedure Performed No -Wound/Ulcer Outcome Not Healed -Offloading Yes -Type of Offloading Knee Walker 1. L foot plantar -Correct Patient No -Correct Side, Site, Position No -Correct Procedure No -Procedure Performed No -Wound/Ulcer Outcome Not Healed -Offloading Yes -Type of Offloading Knee Walker [See Physician Procedure note for Specifics] Pain Scale: 0-10 Numeric [Pain] -Is Patient Pain Free? Yes - Nurse 3 - General Ulcer D/C NN Start: 09/06/20 10:34 Freq: Status: Active Protocol: Activity Type Activity Date Activity User E-Sign Co-Sign Detail Recorded Client Recorded Date Recorded By Document 09/13/20 11:02 [facility] [id number] 09/13/20 11:03 [facility] 09/13/20 11:02 Wound Care Nurse 3 [Wound Dressing] 2-left dorsal foot -Ulcer Cleansing Rinsed/ Irrigated with Saline -Foul Odor after Cleansing No -Primary Dressing Applied Other -Other Dressing hydrogel today -Primary Dressing Covered/Secured Dry Gauze & with Roll Gauze, Secured with Tape 1. L foot plantar -Primary Dressing Applied Other -Other Dressing epicord left intact -Primary Dressing Covered/Secured Dry Gauze & with Roll Gauze, Secured with Tape [Compression Applied] Left -Compression Wrap Neo Wrap -Other to secure drsg [Post Procedure Tolerated] -Treatment Response Procedure Tolerated Well Pain Scale: 0-10 Numeric [Pain] -Is Patient Pain Free? Yes WC - Visit Discharge [Visit Discharge Information] -Discharge Condition Stable -Ambulatory Status Ambulatory -Transportation Private Auto -Accompanied by sister [Facility Notification] -Facility Type Home Health Musculoskeletal: No Tenderness to Palpation of Joints or Extremities, Muscle Wasting Neurological: - - Lack of normal epicritic sensation light touch is consistent with neuropathy status Psych/Mental Status: Normal Affect, Appropriate Debridement Note Post-Debridement Measurements/Treatment WC - Nurse 2 - General Ulcer CM Notes Start: 09/06/20 10:34 Freq: Status: Active Protocol: Activity Type Activity Date Activity User E-Sign Co-Sign Detail Recorded Client Recorded Date Recorded By Document 09/06/20 11:34 [id number] 09/06/20 11:37 Document 09/13/20 10:40 [id number] 09/13/20 10:45 09/06/20 09/13/20 11:34 10:40 Wound Center Nurse 2 2-left dorsal foot -Correct Patient No No -Correct Side, Site, Position No No -Correct Procedure No No -Procedure Performed No No -Tunneling No -Undermining/Tunneling No -Circular Undermining No -Wound/Ulcer Outcome Not Healed Not Healed -Offloading Yes -Type of Offloading Knee Walker -Debridement - Subq, 1st 20sq cm No 1. L foot plantar -Time 11:35 -Correct Patient Yes No -Correct Side, Site, Position Yes No -Correct Procedure Yes No -Procedure Performed Yes No -Type of Procedure Debridement -Clinical Debridement Subcutaneous -Tissue Removed Subcutaneous -Post Debridement (cm) - Length 1.5 -Post Debridement (cm) - Width 2 -Post Debridement (cm) - Depth 0.5 -Total Square (Post) (cm) 3.0 -Area of Debridement (cm) - Length 1.5 -Area of Debridement (cm) - Width 2 -Total Square (Area) (cm) 3.0 -Tunneling No -Undermining/Tunneling No -Circular Undermining No -Wound/Ulcer Outcome Not Healed Not Healed -Ulcer Cleansing Rinsed/ Irrigated with Saline -Foul Odor after Cleansing No -Bioengineered Tissue Yes -Type of Bioengineered Tissue Epicord -Expiration Date 02/03/25 -Product Lot Number [id number] -Percent Used 100 -Bleeding Controlled with Pressure -Other saline [id number] -Offloading Yes Yes -Type of Offloading Surgical Shoe Knee Walker -Debridement - Subq, 1st 20sq cm No -Apply Skin Sub - 1st 25 sq cm - Feet 1 -Epicord (per sq cm) 6 Pain Scale: 0-10 Numeric Is Patient Pain Free? Yes Yes WC - Nurse 3 - General Ulcer D/C NN Start: 09/06/20 10:34 Freq: Status: Active Protocol: Activity Type Activity Date Activity User E-Sign Co-Sign Detail Recorded Client Recorded Date Recorded By Document 09/06/20 11:41 RB [id number] 09/06/20 11:42 RB Document 09/13/20 11:02 [facility] [id number] 09/13/20 11:03 BM 09/06/20 09/13/20 11:41 11:02 Wound Care Nurse 3 2-left dorsal foot -Ulcer Cleansing Rinsed/ Irrigated with Saline -Foul Odor after Cleansing No -Primary Dressing Applied Other -Other Dressing hydrogel today -Primary Dressing Covered/Secured with Dry Gauze,Dry Dry Gauze & Gauze & Roll Roll Gauze, Gauze,Secured Secured with with Tape Tape 1. L foot plantar -Primary Dressing Applied Other -Other Dressing epicord left intact -Primary Dressing Covered/Secured with Dry Gauze,Dry Dry Gauze & Gauze & Roll Roll Gauze, Gauze,Secured Secured with with Tape Tape Left -Compression Wrap Neo Wrap -Other neo to secure drsg Treatment Response Procedure Procedure Tolerated Well Tolerated Well Vital Signs Blood Pressure (90/60-120/80) 110/60 Blood Pressure Mean (mm Hg) 76 Source Monitor Position Sitting Blood Pressure Location Right Arm Pain Scale: 0-10 Numeric Is Patient Pain Free? Yes Yes WC - Visit Discharge Discharge Condition Stable Stable Ambulatory Status Wheelchair Ambulatory Transportation Private Auto Private Auto Accompanied by sister Medication Reconcilliation completed & No provided to patient/care provider Clinical Summary of Care Provided Yes Facility Type Home Health Wound debrided: dorsal foot, plantar forefoot Laterality: Left No debridement was completed today - dorsal foot eschar. plantar forefoot epicord is incorporating Assessment/Plan Active Problems (Last Updated 07/09/20 @ 22:[address] Zachary Jean MD) Ulcer of left foot with fat layer exposed (Chronic) Delayed wound healing (Chronic) Eschar of foot (Chronic) ESRD (end stage renal disease) (Chronic) Diabetes (Chronic) e11.42 Assessment: Left foot ulcer plantar, no infection. Eschar dorsal left foot, no infection. Diabetes with neuropathy. Renal disease. Small vessel disease. Delayed healing Plan: I reviewed and discussed his case. He was reassured no local signs of infection are noted locally or systemically. To monitor closely. Debridement was not performed today because the epicord is incorporating. This will be considered next week. He is reassured no signs of local infection are noted. I recommend discontinuation of the wound VAC. To continue strict offloading with wheelchair use and surgical shoe with offloading liners. I recommend application of advanced wound healing product, epicord next week again for limb salvage. The benefits, application course, and anticipated healing time and management were discussed. I recommend application of Santyl applied nickel thickness daily to the top of the foot at the eschar site. A prescription was provided today. His last blood flow studies were reviewed from 07-26-2020 with ABIs and ankle waveforms. There are diminished toe pressures which are consistent with small vessel disease on the left lower extremity. To follow-up with vascular surgery as previously advised. I will confirm his prior intervention if any with medical records release request. Continue with nutritional supplementation Gaudencio to optimize healing. To return to clinic in 1 week or call sooner if he has any questions or concerns.
[2020-09-20 10:25] VITALS: BP 117/62; PULSE 80; RESP 20; TEMP 35.9; BMI 27.0
--- NOTE | 2020-09-20 13:24 | PCM.WC.PN ---
(1) Ulcer of left foot with fat layer exposed Status: Chronic Code(s): L97.522 - Non-pressure chronic ulcer of other part of left foot with fat layer exposed (2) Delayed wound healing Status: Chronic Code(s): T14.8XXD - Other injury of unspecified body region, subsequent encounter (3) Peripheral vascular disease Status: Suspected Code(s): I73.9 - Peripheral vascular disease, unspecified (4) ESRD (end stage renal disease) Status: Chronic Code(s): N18.6 - End stage renal disease (5) Diabetes Status: Chronic Qualifiers: Diabetes mellitus type: type 2 Diabetes mellitus complication detail: with polyneuropathy Code(s): E11.9 - Type 2 diabetes mellitus without complications Comment: e11.42 (6) Eschar of foot Status: Chronic Code(s): R23.4 - Changes in skin texture Type of Wound Date of Service: 09/20/20 Chief Complaint: Left foot ulcer History of Wound: This 55-year-old male sustained a foot infection in which she went for emergent surgery on 07-21-2020 at [facility] with Dr. Valdez. 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 He has recently been utilizing a wound VAC. He uses a surgical shoe and put weight on his heel to offload and also uses a wheelchair at times. He had a plantar epicord applied two weeks ago and he has kept this clean, dry, and intact. He has been applying santyl to the top of his foot at the site of eschar. Progress of Wound: Stable - Physical Exam Vital Signs Temp Pulse Resp BP 96.7 F L 80 20 H 117/62 09/20/20 10:25 09/20/20 10:25 09/20/20 10:25 09/20/20 10:25 General: Alert, Oriented x3, Cooperative, No apparent distress HEENT: Atraumatic Extremities: No cyanosis, Capillary Refill Less than 3 Seconds, No Calf Tenderness, Diminished Peripheral Pulses, Edema Skin: Ulcer/ Wound - After debridement of the plantar ulcer there is improvement in granulation tissue without purulence, erythema, streaking, odor, infection. The dorsal foot has a dry stable eschar without infection. The adjacent skin is hairless and thin Wound Measurements and Assessment WC - Nurse 1 - General Ulcer Measurement Start: 09/06/20 10:34 Freq: Status: Active Protocol: Activity Type Activity Date Activity User E-Sign Co-Sign Detail Recorded Client Recorded Date Recorded By Document 09/20/20 10:25 DL [id number] 09/20/20 10:35 DL 09/20/20 10:25 Wound Center Nurse 1 [Ulcer Assessment] 2-left dorsal foot -Current Size (cm) - Length 4 -Current Size (cm) - Width 5.5 -Current Size (cm) - Depth 0.1 -Total Square Cm 22.0 -Photo Taken No -Exudate Amt None Present -Wound Margin Distinct, Outline Attached -Granulation Amt None Present (0 %) -Necrosis Amt Large (67-100%) -Necrotic Tissue Type Eschar -Structure Exposed N/A -Texture (Nilda-wound Skin Appearance) Localized Edema ,Scarring -Moisture (Nilda-wound Skin Appearance No Abnormality ) -Color (Nilda-wound Skin Appearance) Erythema -Temperature (Nilda-wound Skin No Abnormality Appearance) (Pt Warm) -Tenderness on Palpation (Nilda-wound No Skin Appearance) -Ulcer Cleansing Wound Cleanser -Foul Odor after Cleansing No -Anesthetic Used 4% Lidocaine Solution 1. L foot plantar -Current Size (cm) - Length 0.5 -Current Size (cm) - Width 1.2 -Current Size (cm) - Depth 0.1 -Total Square Cm 0.60 -Photo Taken No -Epithelialization Large 67-100% -Exudate Amt Small -Exudate Type Serosanguineous -Wound Margin Distinct, Outline Attached -Granulation Amt None Present (0 %) -Necrosis Amt Large (67-100%) -Necrotic Tissue Type Adherent Slough -Structure Exposed N/A -Texture (Nilda-wound Skin Appearance) Scarring -Moisture (Nilda-wound Skin Appearance Dry/Scaly ) -Color (Nilda-wound Skin Appearance) Erythema -Temperature (Nilda-wound Skin No Abnormality Appearance) (Pt Warm) -Tenderness on Palpation (Nilda-wound No Skin Appearance) -Ulcer Cleansing Wound Cleanser -Foul Odor after Cleansing No -Anesthetic Used 4% Lidocaine Solution WC - Nurse 2 - General Ulcer CM Notes Start: 09/06/20 10:34 Freq: Status: Active Protocol: Activity Type Activity Date Activity User E-Sign Co-Sign Detail Recorded Client Recorded Date Recorded By Document 09/20/20 10:46 ERNESTINE [id number] 09/20/20 10:54 ERNESTINE 09/20/20 10:46 Wound Center Nurse 2 [Procedure/Treatment] 2-left dorsal foot -Time 10:46 -Correct Patient Yes -Correct Side, Site, Position Yes -Correct Procedure Yes -Procedure Performed Yes -Type of Procedure Debridement -Clinical Debridement Epidermis / Dermis -Tissue Removed Epidermis, Dermis -Post Debridement (cm) - Length 4 -Post Debridement (cm) - Width 5.5 -Post Debridement (cm) - Depth 0.1 -Total Square (Post) (cm) 22.0 -Area of Debridement (cm) - Length 4 -Area of Debridement (cm) - Width 5.5 -Total Square (Area) (cm) 22.0 -Tunneling No -Undermining/Tunneling No -Circular Undermining No -Wound/Ulcer Outcome Not Healed -Ulcer Cleansing Rinsed/ Irrigated with Saline -Foul Odor after Cleansing No -Bioengineered Tissue No -Bleeding Controlled with Pressure -Offloading Yes -Type of Offloading Surgical Shoe -Debridement - Open, 1st 20sq cm Yes -Debridement, Open, ea addt'l 20sq cm 1 or part thereof 1. L foot plantar -Time 10:50 -Correct Patient Yes -Correct Side, Site, Position Yes -Correct Procedure Yes -Procedure Performed Yes -Type of Procedure Debridement -Clinical Debridement Subcutaneous -Tissue Removed Subcutaneous -Post Debridement (cm) - Length 1.4 -Post Debridement (cm) - Width 1.9 -Post Debridement (cm) - Depth 0.3 -Total Square (Post) (cm) 2.66 -Area of Debridement (cm) - Length 1.4 -Area of Debridement (cm) - Width 1.9 -Total Square (Area) (cm) 2.66 -Tunneling No -Undermining/Tunneling No -Circular Undermining No -Wound/Ulcer Outcome Not Healed -Ulcer Cleansing Rinsed/ Irrigated with Saline -Foul Odor after Cleansing No -Bioengineered Tissue Yes -Type of Bioengineered Tissue Epicord -Expiration Date 02/03/25 -Product Lot Number [id number] -Percent Used 100 -Bleeding Controlled with Pressure -Other saline [id number] -Offloading Yes -Type of Offloading Surgical Shoe -Debridement - Subq, 1st 20sq cm No -Apply Skin Sub - 1st 25 sq cm - Feet 1 -Epicord (per sq cm) 6 [See Physician Procedure note for Specifics] Pain Scale: 0-10 Numeric [Pain] -Is Patient Pain Free? Yes Musculoskeletal: No Tenderness to Palpation of Joints or Extremities, Muscle Wasting, - - Second toe amputation Neurological: - - Lack of normal epicritic sensation Psych/Mental Status: Normal Affect, Appropriate Debridement Note Post-Debridement Measurements/Treatment WC - Nurse 2 - General Ulcer CM Notes Start: 09/06/20 10:34 Freq: Status: Active Protocol: Activity Type Activity Date Activity User E-Sign Co-Sign Detail Recorded Client Recorded Date Recorded By Document 09/06/20 11:34 [id number] 09/06/20 11:37 Document 09/13/20 10:40 [id number] 09/13/20 10:45 Document 09/20/20 10:46 [id number] 09/20/20 10:54 09/06/20 09/13/20 09/20/20 11:34 10:40 10:46 Wound Center Nurse 2 2-left dorsal foot -Time 10:46 -Correct Patient No No Yes -Correct Side, Site, Position No No Yes -Correct Procedure No No Yes -Procedure Performed No No Yes -Type of Procedure Debridement -Clinical Debridement Epidermis / Dermis -Tissue Removed Epidermis, Dermis -Post Debridement (cm) - Length 4 -Post Debridement (cm) - Width 5.5 -Post Debridement (cm) - Depth 0.1 -Total Square (Post) (cm) 22.0 -Area of Debridement (cm) - Length 4 -Area of Debridement (cm) - Width 5.5 -Total Square (Area) (cm) 22.0 -Tunneling No No -Undermining/Tunneling No No -Circular Undermining No No -Wound/Ulcer Outcome Not Healed Not Healed Not Healed -Ulcer Cleansing Rinsed/ Irrigated with Saline -Foul Odor after Cleansing No -Bioengineered Tissue No -Bleeding Controlled with Pressure -Offloading Yes Yes -Type of Offloading Knee Walker Surgical Shoe -Debridement - Open, 1st 20sq cm Yes -Debridement, Open, ea addt'l 20sq cm 1 or part thereof -Debridement - Subq, 1st 20sq cm No 1. L foot plantar -Time 11:35 10:50 -Correct Patient Yes No Yes -Correct Side, Site, Position Yes No Yes -Correct Procedure Yes No Yes -Procedure Performed Yes No Yes -Type of Procedure Debridement Debridement -Clinical Debridement Subcutaneous Subcutaneous -Tissue Removed Subcutaneous Subcutaneous -Post Debridement (cm) - Length 1.5 1.4 -Post Debridement (cm) - Width 2 1.9 -Post Debridement (cm) - Depth 0.5 0.3 -Total Square (Post) (cm) 3.0 2.66 -Area of Debridement (cm) - Length 1.5 1.4 -Area of Debridement (cm) - Width 2 1.9 -Total Square (Area) (cm) 3.0 2.66 -Tunneling No No -Undermining/Tunneling No No -Circular Undermining No No -Wound/Ulcer Outcome Not Healed Not Healed Not Healed -Ulcer Cleansing Rinsed/ Rinsed/ Irrigated with Irrigated with Saline Saline -Foul Odor after Cleansing No No -Bioengineered Tissue Yes Yes -Type of Bioengineered Tissue Epicord Epicord -Expiration Date 02/03/25 02/03/25 -Product Lot Number [id number] -Percent Used 100 100 -Bleeding Controlled with Pressure Pressure -Other saline [id number] saline [id number] -Offloading Yes Yes Yes -Type of Offloading Surgical Shoe Knee Walker Surgical Shoe -Debridement - Subq, 1st 20sq cm No No -Apply Skin Sub - 1st 25 sq cm - Feet 1 1 -Epicord (per sq cm) 6 6 Pain Scale: 0-10 Numeric Is Patient Pain Free? Yes Yes Yes - Nurse 3 - General Ulcer D/C NN Start: 09/06/20 10:34 Freq: Status: Active Protocol: Activity Type Activity Date Activity User E-Sign Co-Sign Detail Recorded Client Recorded Date Recorded By Document 09/06/20 11:41 RB [id number] 09/06/20 11:42 RB Document 09/13/20 11:02 [facility] [id number] 09/13/20 11:03 BM 09/06/20 09/13/20 11:41 11:02 Wound Care Nurse 3 2-left dorsal foot -Ulcer Cleansing Rinsed/ Irrigated with Saline -Foul Odor after Cleansing No -Primary Dressing Applied Other -Other Dressing hydrogel today -Primary Dressing Covered/Secured with Dry Gauze,Dry Dry Gauze & Gauze & Roll Roll Gauze, Gauze,Secured Secured with with Tape Tape 1. L foot plantar -Primary Dressing Applied Other -Other Dressing epicord left intact -Primary Dressing Covered/Secured with Dry Gauze,Dry Dry Gauze & Gauze & Roll Roll Gauze, Gauze,Secured Secured with with Tape Tape Left -Compression Wrap Neo Wrap -Other neo to secure drsg Treatment Response Procedure Procedure Tolerated Well Tolerated Well Vital Signs Blood Pressure (90/60-120/80) 110/60 Blood Pressure Mean (mm Hg) 76 Source Monitor Position Sitting Blood Pressure Location Right Arm Pain Scale: 0-10 Numeric Is Patient Pain Free? Yes Yes WC - Visit Discharge Discharge Condition Stable Stable Ambulatory Status Wheelchair Ambulatory Transportation Private Auto Private Auto Accompanied by sister Medication Reconcilliation completed & No provided to patient/care provider Clinical Summary of Care Provided Yes Facility Type Home Health Wound debrided: plantar distal foot Laterality: Left Wound Grade/Stage: grade 3 Type of Debridement: Excisional debridement Anesthesia Used: 5% Lidocaine Gel Depth: in the subcutaneous layer Percentage of wound debrided: 100 Instrument Used: #15 blade Tissue Removed: fibrous, devitalized subcutaneous, biofilm, slough Severity: Fat Layer Exposed Amount of bleeding with debridement: Mild Bleeding Controlled with: Pressure Patient tolerated procedure well Assessment/Plan Active Problems (Last Updated 07/09/20 @ 22:[address] Zachary Jean MD) Ulcer of left foot with fat layer exposed (Chronic) Delayed wound healing (Chronic) Eschar of foot (Chronic) ESRD (end stage renal disease) (Chronic) Diabetes (Chronic) e11.42 Assessment: Left foot ulcer plantar, no infection. Eschar dorsal left foot, no infection. Diabetes with neuropathy. Renal disease. Small vessel disease. Delayed healing Plan: I reviewed and discussed his case. He was reassured no local signs of infection are noted locally or systemically. To monitor closely. Debridement was performed today as noted in the clinical panel and another epicord was applied according standard protocol after verbal consent was obtained. This was further moistened with saline and secured with a wound veil and Steri-Strips. He was advised to keep this clean, dry, and intact until follow-up next week. He is reassured no signs of local infection are noted. To apply Santyl nickel thickness to the dorsal foot over the eschar. To continue strict offloading with wheelchair use and surgical shoe with offloading liners. I recommend application of advanced wound healing product, epicord next week again for limb salvage. The benefits, application course, and anticipated healing time and management were discussed. His last blood flow studies were reviewed from 07-26-2020 with ABIs and ankle waveforms. There are diminished toe pressures which are consistent with small vessel disease on the left lower extremity. To follow-up with vascular surgery as previously advised. I will confirm his prior intervention if any with medical records release request. Continue with nutritional supplementation Gaudencio to optimize healing. To return to clinic in 1 week or call sooner if he has any questions or concerns.
[2020-09-27 10:41] VITALS: BP 110/56; PULSE 81; RESP 18; TEMP 36.1; BMI 27.0
--- NOTE | 2020-09-27 22:35 | PN.PCM_ITS ---
(1) Ulcer of left foot with fat layer exposed Status: Chronic Code(s): L97.522 - Non-pressure chronic ulcer of other part of left foot with fat layer exposed (2) Delayed wound healing Status: Chronic Code(s): T14.8XXD - Other injury of unspecified body region, subsequent encounter (3) Peripheral vascular disease Status: Suspected Code(s): I73.9 - Peripheral vascular disease, unspecified (4) ESRD (end stage renal disease) Status: Chronic Code(s): N18.6 - End stage renal disease (5) Diabetes Status: Chronic Qualifiers: Diabetes mellitus type: type 2 Diabetes mellitus complication detail: with polyneuropathy Code(s): E11.9 - Type 2 diabetes mellitus without complications Comment: e11.42 (6) Eschar of foot Status: Chronic Code(s): R23.4 - Changes in skin texture Type of Wound Date of Service: 09/27/20 Chief Complaint: Left foot ulcer History of Wound: This 55-year-old male sustained a foot infection in which she went for emergent surgery on 07-21-2020 at [facility] with Dr. Valdez. He subsequently has been treated with a comprehensive wound healing plan including offloading, serial debridement, and intermediate manager course of IV antibiotics under the management of infectious disease. He has recently been utilizing a wound VAC. He uses a surgical shoe and put weight on his heel to offload and also uses a wheelchair at times. He had a plantar epicord applied last week and he has kept this clean, dry, and intact. He has been applying santyl to the top of his foot at the site of eschar. He has a callus to the side of his foot and denies drainage. Progress of Wound: Stable - Physical Exam Vital Signs Temp Pulse Resp BP 97 F L 81 18 110/56 L 09/27/20 10:41 09/27/20 10:41 09/27/20 10:41 09/27/20 10:41 General: Alert, Oriented x3, Cooperative, No apparent distress Extremities: Capillary Refill Less than 3 Seconds, No Calf Tenderness, Dimi nished Peripheral Pulses Skin: Ulcer/ Wound - No purulence, erythema, string, odor, infection. Epicord is incorporating well to the plantar foot. The dorsal foot has reduced eschar and underlying fibrous and spares granular tissue upon debridement. Callus lateral foot Wound Measurements and Assessment WC - Nurse 1 - General Ulcer Measurement Start: 09/06/20 10:34 Freq: Status: Active Protocol: Activity Type Activity Date Activity User E-Sign Co-Sign Detail Recorded Client Recorded Date Recorded By Document 09/27/20 10:41 DL [id number] 09/27/20 10:52 DL 09/27/20 10:41 Wound Center Nurse 1 [Ulcer Assessment] 2-left dorsal foot -Current Size (cm) - Length 4.7 -Current Size (cm) - Width 2 -Current Size (cm) - Depth 0.1 -Total Square Cm 9.4 -Photo Taken No -Exudate Amt Small -Exudate Type Serosanguineous -Wound Margin Distinct, Outline Attached -Granulation Amt Small (1-33%) -Granulation Quality Tamora -Necrosis Amt Large (67-100%) -Necrotic Tissue Type Eschar -Structure Exposed N/A -Texture (Nilda-wound Skin Appearance) Scarring -Moisture (Nilda-wound Skin Appearance No Abnormality ) -Color (Nilda-wound Skin Appearance) Rubor -Temperature (Nilda-wound Skin No Abnormality Appearance) (Pt Warm) -Tenderness on Palpation (Nilda-wound No Skin Appearance) -Ulcer Cleansing Wound Cleanser -Foul Odor after Cleansing No -Anesthetic Used 4% Lidocaine Solution 1. L foot plantar -Current Size (cm) - Length 1.3 -Current Size (cm) - Width 1.4 -Current Size (cm) - Depth 0.1 -Total Square Cm 1.82 -Photo Taken No -Exudate Amt Small -Exudate Type Serosanguineous -Wound Margin Distinct, Outline Attached -Granulation Amt Small (1-33%) -Granulation Quality Tamora -Necrosis Amt Large (67-100%) -Necrotic Tissue Type Adherent Slough -Structure Exposed N/A -Texture (Nilda-wound Skin Appearance) Scarring -Moisture (Nilda-wound Skin Appearance Dry/Scaly ) -Color (Nilda-wound Skin Appearance) No Abnormality -Temperature (Nilda-wound Skin No Abnormality Appearance) (Pt Warm) -Tenderness on Palpation (Nilda-wound No Skin Appearance) -Ulcer Cleansing Wound Cleanser -Foul Odor after Cleansing No -Anesthetic Used 4% Lidocaine Solution WC - Nurse 2 - General Ulcer CM Notes Start: 09/06/20 10:34 Freq: Status: Active Protocol: Activity Type Activity Date Activity User E-Sign Co-Sign Detail Recorded Client Recorded Date Recorded By Document 09/27/20 11:11 ERNESTINE [id number] 09/27/20 11:15 ERNESTINE 09/27/20 11:11 Wound Center Nurse 2 [Procedure/Treatment] 2-left dorsal foot -Time 11:11 -Correct Patient Yes -Correct Side, Site, Position Yes -Correct Procedure Yes -Procedure Performed Yes -Type of Procedure Debridement -Clinical Debridement Subcutaneous -Tissue Removed Subcutaneous -Post Debridement (cm) - Length 4.8 -Post Debridement (cm) - Width 2 -Post Debridement (cm) - Depth 0.1 -Total Square (Post) (cm) 9.6 -Area of Debridement (cm) - Length 4.8 -Area of Debridement (cm) - Width 2 -Total Square (Area) (cm) 9.6 -Tunneling No -Undermining/Tunneling No -Circular Undermining No -Wound/Ulcer Outcome Not Healed -Ulcer Cleansing Rinsed/ Irrigated with Saline -Foul Odor after Cleansing No -Bioengineered Tissue No -Bleeding Controlled with Pressure -Offloading Yes -Type of Offloading Surgical Shoe -Treatment Response Procedure Tolerated Well -Debridement - Subq, 1st 20sq cm Yes 1. L foot plantar -Correct Patient No -Correct Side, Site, Position No -Correct Procedure No -Procedure Performed No -Circular Undermining No [See Physician Procedure note for Specifics] Pain Scale: 0-10 Numeric [Pain] -Is Patient Pain Free? Yes - Nurse 3 - General Ulcer D/C NN Start: 09/06/20 10:34 Freq: Status: Active Protocol: Activity Type Activity Date Activity User E-Sign Co-Sign Detail Recorded Client Recorded Date Recorded By Document 09/27/20 11:42 [email or web address] [id number] 09/27/20 11:44 KR 09/27/20 11:42 Wound Care Nurse 3 [Wound Dressing] 2-left dorsal foot -Ulcer Cleansing Rinsed/ Irrigated with Saline -Foul Odor after Cleansing No -Primary Dressing Covered/Secured Dry Gauze & with Roll Gauze, Secured with Tape Pain Scale: 0-10 Numeric [Pain] -Is Patient Pain Free? Yes - Visit Discharge [Visit Discharge Information] -Discharge Condition Stable -Ambulatory Status Ambulatory -Transportation Private Auto Musculoskeletal: No Muscle Wasting, Muscle Wasting Neurological: - - Lack of normal epicritic sensation to light touch is consistent with neuropathy Psych/Mental Status: Normal Affect, Appropriate Debridement Note Post-Debridement Measurements/Treatment WC - Nurse 2 - General Ulcer CM Notes Start: 09/06/20 10:34 Freq: Status: Active Protocol: Activity Type Activity Date Activity User E-Sign Co-Sign Detail Recorded Client Recorded Date Recorded By Document 09/06/20 11:34 [email or web address] 09/06/20 11:37 Document 09/13/20 10:40 [id number] 09/13/20 10:45 Document 09/20/20 10:46 [id number] 09/20/20 10:54 Document 09/27/20 11:11 [id number] 09/27/20 11:15 09/06/20 09/13/20 09/20/20 11:34 10:40 10:46 Wound Center Nurse 2 2-left dorsal foot -Time 10:46 -Correct Patient No No Yes -Correct Side, Site, Position No No Yes -Correct Procedure No No Yes -Procedure Performed No No Yes -Type of Procedure Debridement -Clinical Debridement Epidermis / Dermis -Tissue Removed Epidermis, Dermis -Post Debridement (cm) - Length 4 -Post Debridement (cm) - Width 5.5 -Post Debridement (cm) - Depth 0.1 -Total Square (Post) (cm) 22.0 -Area of Debridement (cm) - Length 4 -Area of Debridement (cm) - Width 5.5 -Total Square (Area) (cm) 22.0 -Tunneling No No -Undermining/Tunneling No No -Circular Undermining No No -Wound/Ulcer Outcome Not Healed Not Healed Not Healed -Ulcer Cleansing Rinsed/ Irrigated with Saline -Foul Odor after Cleansing No -Bioengineered Tissue No -Bleeding Controlled with Pressure -Offloading Yes Yes -Type of Offloading Knee Walker Surgical Shoe -Treatment Response -Debridement - Open, 1st 20sq cm Yes -Debridement, Open, ea addt'l 20sq cm 1 or part thereof -Debridement - Subq, 1st 20sq cm No 1. L foot plantar -Time 11:35 10:50 -Correct Patient Yes No Yes -Correct Side, Site, Position Yes No Yes -Correct Procedure Yes No Yes -Procedure Performed Yes No Yes -Type of Procedure Debridement Debridement -Clinical Debridement Subcutaneous Subcutaneous -Tissue Removed Subcutaneous Subcutaneous -Post Debridement (cm) - Length 1.5 1.4 -Post Debridement (cm) - Width 2 1.9 -Post Debridement (cm) - Depth 0.5 0.3 -Total Square (Post) (cm) 3.0 2.66 -Area of Debridement (cm) - Length 1.5 1.4 -Area of Debridement (cm) - Width 2 1.9 -Total Square (Area) (cm) 3.0 2.66 -Tunneling No No -Undermining/Tunneling No No -Circular Undermining No No -Wound/Ulcer Outcome Not Healed Not Healed Not Healed -Ulcer Cleansing Rinsed/ Rinsed/ Irrigated with Irrigated with Saline Saline -Foul Odor after Cleansing No No -Bioengineered Tissue Yes Yes -Type of Bioengineered Tissue Epicord Epicord -Expiration Date 02/03/25 02/03/25 -Product Lot Number [id number] -Percent Used 100 100 -Bleeding Controlled with Pressure Pressure -Other saline [id number] -Offloading Yes Yes Yes -Type of Offloading Surgical Shoe Knee Walker Surgical Shoe -Debridement - Subq, 1st 20sq cm No No -Apply Skin Sub - 1st 25 sq cm - Feet 1 1 -Epicord (per sq cm) 6 6 Pain Scale: 0-10 Numeric Is Patient Pain Free? Yes Yes Yes 09/27/20 11:11 Wound Center Nurse 2 2-left dorsal foot -Time 11:11 -Correct Patient Yes -Correct Side, Site, Position Yes -Correct Procedure Yes -Procedure Performed Yes -Type of Procedure Debridement -Clinical Debridement Subcutaneous -Tissue Removed Subcutaneous -Post Debridement (cm) - Length 4.8 -Post Debridement (cm) - Width 2 -Post Debridement (cm) - Depth 0.1 -Total Square (Post) (cm) 9.6 -Area of Debridement (cm) - Length 4.8 -Area of Debridement (cm) - Width 2 -Total Square (Area) (cm) 9.6 -Tunneling No -Undermining/Tunneling No -Circular Undermining No -Wound/Ulcer Outcome Not Healed -Ulcer Cleansing Rinsed/ Irrigated with Saline -Foul Odor after Cleansing No -Bioengineered Tissue No -Bleeding Controlled with Pressure -Offloading Yes -Type of Offloading Surgical Shoe -Treatment Response Procedure Tolerated Well -Debridement - Open, 1st 20sq cm -Debridement, Open, ea addt'l 20sq cm or part thereof -Debridement - Subq, 1st 20sq cm Yes 1. L foot plantar -Time -Correct Patient No -Correct Side, Site, Position No -Correct Procedure No -Procedure Performed No -Type of Procedure -Clinical Debridement -Tissue Removed -Post Debridement (cm) - Length -Post Debridement (cm) - Width -Post Debridement (cm) - Depth -Total Square (Post) (cm) -Area of Debridement (cm) - Length -Area of Debridement (cm) - Width -Total Square (Area) (cm) -Tunneling -Undermining/Tunneling -Circular Undermining No -Wound/Ulcer Outcome -Ulcer Cleansing -Foul Odor after Cleansing -Bioengineered Tissue -Type of Bioengineered Tissue -Expiration Date -Product Lot Number -Percent Used -Bleeding Controlled with -Other -Offloading -Type of Offloading -Debridement - Subq, 1st 20sq cm -Apply Skin Sub - 1st 25 sq cm - Feet -Epicord (per sq cm) Pain Scale: 0-10 Numeric Is Patient Pain Free? Yes WC - Nurse 3 - General Ulcer D/C NN Start: 09/06/20 10:34 Freq: Status: Active Protocol: Activity Type Activity Date Activity User E-Sign Co-Sign Detail Recorded Client Recorded Date Recorded By Document 09/06/20 11:41 RB [id number] 09/06/20 11:42 RB Document 09/13/20 11:02 [facility] [id number] 09/13/20 11:03 BMF Document 09/27/20 11:42 KR [id number] 09/27/20 11:44 KR 09/06/20 09/13/20 09/27/20 11:41 11:02 11:42 Wound Care Nurse 3 2-left dorsal foot -Ulcer Cleansing Rinsed/ Rinsed/ Irrigated with Irrigated with Saline Saline -Foul Odor after Cleansing No No -Primary Dressing Applied Other -Other Dressing hydrogel today -Primary Dressing Covered/Secured with Dry Gauze,Dry Dry Gauze & Dry Gauze & Gauze & Roll Roll Gauze, Roll Gauze, Gauze,Secured Secured with Secured with with Tape Tape Tape 1. L foot plantar -Primary Dressing Applied Other -Other Dressing epicord left intact -Primary Dressing Covered/Secured with Dry Gauze,Dry Dry Gauze & Gauze & Roll Roll Gauze, Gauze,Secured Secured with with Tape Tape Left -Compression Wrap Neo Wrap -Other neo to secure drsg Treatment Response Procedure Procedure Tolerated Well Tolerated Well Vital Signs Blood Pressure (90/60-120/80) 110/60 Blood Pressure Mean (mm Hg) 76 Source Monitor Position Sitting Blood Pressure Location Right Arm Pain Scale: 0-10 Numeric Is Patient Pain Free? Yes Yes Yes WC - Visit Discharge Discharge Condition Stable Stable Stable Ambulatory Status Wheelchair Ambulatory Ambulatory Transportation Private Auto Private Auto Private Auto Accompanied by sister Medication Reconcilliation completed & No provided to patient/care provider Clinical Summary of Care Provided Yes Facility Type Home Health Wound debrided: dorsal foot Laterality: Left Assessment/Plan Active Problems (Last Updated 07/09/20 @ 22:[address] Zachary Jean MD) Ulcer of left foot with fat layer exposed (Chronic) Delayed wound healing (Chronic) Eschar of foot (Chronic) ESRD (end stage renal disease) (Chronic) Diabetes (Chronic) e11.42 Assessment: Left foot ulcer plantar, no infection. Callus lateral foot. Eschar dorsal left foot/now ulcer with fat layer exposed, no infection. Diabetes with neuropathy. Renal disease. Small vessel disease. Delayed healing Plan: I reviewed and discussed his case. He was reassured no local signs of infection are noted locally or systemically. To monitor closely. Debridement was performed today to the dorsal foot. To continue Santyl. The callus was debrided and there he was reassured no ulcers present. The epicord plantar foot was left intact and is incorporating well. Reapplication debridement will be considered at this site next week. He was advised to keep this clean, dry, and intact until follow-up next week. He is reassured no signs of local infection are noted. To apply Santyl nickel thickness to the dorsal foot over the eschar. To continue strict offloading with wheelchair use and surgical shoe with offloading liners. I recommend application of advanced wound healing product, epicord next week again for limb salvage. The benefits, application course, and anticipated healing time and management were discussed. His last blood flow studies were reviewed from 07-26-2020 with ABIs and ankle waveforms. There are diminished toe pressures which are consistent with small vessel disease on the left lower extremity. To follow-up with vascular surgery as previously advised. I will confirm his prior intervention if any with medical records release request. Continue with nutritional supplementation Gaudencio to optimize healing. To return to clinic in 1 week or call sooner if he has any questions or concerns.
[2020-10-04 09:40] VITALS: BP 135/70; PULSE 78; RESP 20; TEMP 35.9; BMI 27.0
--- NOTE | 2020-10-04 12:38 | PCM.WC.PN ---
(1) Ulcer of left foot with fat layer exposed Status: Chronic Code(s): L97.522 - Non-pressure chronic ulcer of other part of left foot with fat layer exposed (2) Delayed wound healing Status: Chronic Code(s): T14.8XXD - Other injury of unspecified body region, subsequent encounter (3) Peripheral vascular disease Status: Chronic Code(s): I73.9 - Peripheral vascular disease, unspecified Comment: small vessel disease (4) ESRD (end stage renal disease) Status: Chronic Code(s): N18.6 - End stage renal disease (5) Diabetes Status: Chronic Qualifiers: Diabetes mellitus type: type 2 Diabetes mellitus complication detail: with polyneuropathy Code(s): E11.9 - Type 2 diabetes mellitus without complications Comment: e11.42 (6) Eschar of foot Status: Chronic Code(s): R23.4 - Changes in skin texture Type of Wound Date of Service: 10/04/20 Chief Complaint: Left foot ulcer History of Wound: This 55-year-old male sustained a foot infection in which she went for emergent surgery on 07-21-2020 at [facility] with Dr. Valdez. 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 He uses a surgical shoe and put weight on his heel to offload and also uses a wheelchair at times. He had a plantar epicord applied last week and he has kept this clean, dry, and intact. He has been applying santyl to the top of his foot at the site of eschar. He has a callus to the side of his foot and denies drainage. He is with his sister today. Progress of Wound: Improving - Physical Exam Vital Signs Temp Pulse Resp BP 96.7 F L 78 20 H 135/70 H 10/04/20 09:40 10/04/20 09:40 10/04/20 09:40 10/04/20 09:40 General: Alert, Oriented x3, Cooperative, No apparent distress HEENT: Atraumatic Extremities: No cyanosis, No edema, Capillary Refill Less than 3 Seconds, No Calf Tenderness, Diminished Peripheral Pulses Skin: Ulcer/ Wound - No purulence, erythema, string, odor, infection. Reduced ulcer depth plantar aspect is noted. There is also reduced eschar to the dorsal foot ulcer site. The adjacent skin is hairless and atrophic. Wound Measurements and Assessment WC - Nurse 1 - General Ulcer Measurement Start: 09/06/20 10:34 Freq: Status: Active Protocol: Activity Type Activity Date Activity User E-Sign Co-Sign Detail Recorded Client Recorded Date Recorded By Document 10/04/20 09:40 DL [id number] 10/04/20 09:45 DL 10/04/20 09:40 Wound Center Nurse 1 [Ulcer Assessment] 2-left dorsal foot -Current Size (cm) - Length 5.4 -Current Size (cm) - Width 2.2 -Current Size (cm) - Depth 0.1 -Total Square Cm 11.88 -Photo Taken No -Exudate Amt Small -Wound Margin Thickened -Granulation Amt None Present (0 %) -Necrosis Amt Large (67-100%) -Necrotic Tissue Type Adherent Slough -Structure Exposed N/A -Texture (Nilda-wound Skin Appearance) Scarring -Moisture (Nilda-wound Skin Appearance No Abnormality ) -Color (Nilda-wound Skin Appearance) Rubor -Temperature (Nilda-wound Skin No Abnormality Appearance) (Pt Warm) -Tenderness on Palpation (Nilda-wound No Skin Appearance) -Ulcer Cleansing Wound Cleanser -Foul Odor after Cleansing No -Anesthetic Used 4% Lidocaine Solution 1. L foot plantar -Current Size (cm) - Length 1.5 -Current Size (cm) - Width 1.7 -Current Size (cm) - Depth 0.1 -Total Square Cm 2.55 -Photo Taken No -Exudate Amt None Present -Wound Margin Thickened -Granulation Amt None Present (0 %) -Necrosis Amt Large (67-100%) -Necrotic Tissue Type Adherent Slough -Structure Exposed N/A -Texture (Nilda-wound Skin Appearance) Localized Edema ,Scarring -Moisture (Nilda-wound Skin Appearance No Abnormality ) -Color (Nilda-wound Skin Appearance) Rubor -Temperature (Nilda-wound Skin No Abnormality Appearance) (Pt Warm) -Tenderness on Palpation (Nilda-wound No Skin Appearance) -Ulcer Cleansing Wound Cleanser -Foul Odor after Cleansing No -Anesthetic Used 4% Lidocaine Solution WC - Nurse 2 - General Ulcer CM Notes Start: 09/06/20 10:34 Freq: Status: Active Protocol: Activity Type Activity Date Activity User E-Sign Co-Sign Detail Recorded Client Recorded Date Recorded By Document 10/04/20 10:00 ERNESTINE [id number] 10/04/20 10:10 ENRESTINE 10/04/20 10:00 Wound Center Nurse 2 [Procedure/Treatment] 2-left dorsal foot -Time 10:00 -Correct Patient Yes -Correct Side, Site, Position Yes -Correct Procedure Yes -Procedure Performed Yes -Type of Procedure Debridement -Clinical Debridement Subcutaneous -Tissue Removed Subcutaneous -Post Debridement (cm) - Length 6 -Post Debridement (cm) - Width 1 -Post Debridement (cm) - Depth 0.1 -Total Square (Post) (cm) 6 -Area of Debridement (cm) - Length 6 -Area of Debridement (cm) - Width 1 -Total Square (Area) (cm) 6 -Tunneling No -Undermining/Tunneling No -Circular Undermining No -Wound/Ulcer Outcome Not Healed -Ulcer Cleansing Rinsed/ Irrigated with Saline -Foul Odor after Cleansing No -Bioengineered Tissue No -Bleeding Controlled with Pressure -Offloading Yes -Type of Offloading Surgical Shoe -Treatment Response Procedure Tolerated Well -Debridement - Subq, 1st 20sq cm Yes 1. L foot plantar -Time 10:01 -Correct Patient Yes -Correct Side, Site, Position Yes -Correct Procedure Yes -Procedure Performed Yes -Type of Procedure Debridement -Clinical Debridement Subcutaneous -Tissue Removed Subcutaneous -Post Debridement (cm) - Length 1.5 -Post Debridement (cm) - Width 1.8 -Post Debridement (cm) - Depth 0.2 -Total Square (Post) (cm) 2.70 -Area of Debridement (cm) - Length 1.5 -Area of Debridement (cm) - Width 1.8 -Total Square (Area) (cm) 2.70 -Tunneling No -Undermining/Tunneling No -Circular Undermining No -Wound/Ulcer Outcome Not Healed -Ulcer Cleansing Rinsed/ Irrigated with Saline -Foul Odor after Cleansing No -Bioengineered Tissue Yes -Type of Bioengineered Tissue Epicord -Expiration Date 05/06/25 -Product Lot Number [id number] -Percent Used 100 -Lot number of Saline Used [id number] -Bleeding Controlled with Pressure -Offloading Yes -Type of Offloading Surgical Shoe -Treatment Response Procedure Tolerated Well -Debridement - Subq, 1st 20sq cm No -Apply Skin Sub - 1st 25 sq cm - Feet 1 -Epicord (per sq cm) 0 -Epifix (per sq cm) 4 [See Physician Procedure note for Specifics] Pain Scale: 0-10 Numeric [Pain] -Is Patient Pain Free? Yes - Nurse 3 - General Ulcer D/C NN Start: 09/06/20 10:34 Freq: Status: Active Protocol: Activity Type Activity Date Activity User E-Sign Co-Sign Detail Recorded Client Recorded Date Recorded By Document 10/04/20 10:26 [email or web address] [id number] 10/04/20 10:27 10/04/20 10:26 Wound Care Nurse 3 [Wound Dressing] 2-left dorsal foot -Primary Dressing Covered/Secured Dry Gauze, with Secured with Tape 1. L foot plantar -Ulcer Cleansing Rinsed/ Irrigated with Saline -Foul Odor after Cleansing No -Primary Dressing Applied C Hydrogel ($) -Primary Dressing Covered/Secured Dry Gauze,Dry with Gauze & Roll Gauze,Secured with Tape [Post Procedure Tolerated] -Treatment Response Procedure Tolerated Well Pain Scale: 0-10 Numeric [Pain] -Is Patient Pain Free? Yes - Visit Discharge [Visit Discharge Information] -Discharge Condition Stable -Ambulatory Status Ambulatory -Transportation Private Auto Musculoskeletal: No Tenderness to Palpation of Joints or Extremities, Muscle Wasting, - - Second toe amputation Neurological: - - Lack of normal epicritic sensation to light touch is consistent with neuropathy status Debridement Note Post-Debridement Measurements/Treatment - Nurse 2 - General Ulcer CM Notes Start: 09/06/20 10:34 Freq: Status: Active Protocol: Activity Type Activity Date Activity User E-Sign Co-Sign Detail Recorded Client Recorded Date Recorded By Document 09/06/20 11:34 [id number] 09/06/20 11:37 Document 09/13/20 10:40 [id number] 09/13/20 10:45 Document 09/20/20 10:46 [id number] 09/20/20 10:54 Document 09/27/20 11:11 [id number] 09/27/20 11:15 Document 10/04/20 10:00 [id number] 10/04/20 10:10 09/06/20 09/13/20 09/20/20 11:34 10:40 10:46 Wound Center Nurse 2 2-left dorsal foot -Time 10:46 -Correct Patient No No Yes -Correct Side, Site, Position No No Yes -Correct Procedure No No Yes -Procedure Performed No No Yes -Type of Procedure Debridement -Clinical Debridement Epidermis / Dermis -Tissue Removed Epidermis, Dermis -Post Debridement (cm) - Length 4 -Post Debridement (cm) - Width 5.5 -Post Debridement (cm) - Depth 0.1 -Total Square (Post) (cm) 22.0 -Area of Debridement (cm) - Length 4 -Area of Debridement (cm) - Width 5.5 -Total Square (Area) (cm) 22.0 -Tunneling No No -Undermining/Tunneling No No -Circular Undermining No No -Wound/Ulcer Outcome Not Healed Not Healed Not Healed -Ulcer Cleansing Rinsed/ Irrigated with Saline -Foul Odor after Cleansing No -Bioengineered Tissue No -Bleeding Controlled with Pressure -Offloading Yes Yes -Type of Offloading Knee Walker Surgical Shoe -Treatment Response -Debridement - Open, 1st 20sq cm Yes -Debridement, Open, ea addt'l 20sq cm 1 or part thereof -Debridement - Subq, 1st 20sq cm No 1. L foot plantar -Time 11:35 10:50 -Correct Patient Yes No Yes -Correct Side, Site, Position Yes No Yes -Correct Procedure Yes No Yes -Procedure Performed Yes No Yes -Type of Procedure Debridement Debridement -Clinical Debridement Subcutaneous Subcutaneous -Tissue Removed Subcutaneous Subcutaneous -Post Debridement (cm) - Length 1.5 1.4 -Post Debridement (cm) - Width 2 1.9 -Post Debridement (cm) - Depth 0.5 0.3 -Total Square (Post) (cm) 3.0 2.66 -Area of Debridement (cm) - Length 1.5 1.4 -Area of Debridement (cm) - Width 2 1.9 -Total Square (Area) (cm) 3.0 2.66 -Tunneling No No -Undermining/Tunneling No No -Circular Undermining No No -Wound/Ulcer Outcome Not Healed Not Healed Not Healed -Ulcer Cleansing Rinsed/ Rinsed/ Irrigated with Irrigated with Saline Saline -Foul Odor after Cleansing No No -Bioengineered Tissue Yes Yes -Type of Bioengineered Tissue Epicord Epicord -Expiration Date 02/03/25 02/03/25 -Product Lot Number [id number] -Percent Used 100 100 -Lot number of Saline Used -Bleeding Controlled with Pressure Pressure -Other saline [id number] saline [id number] -Offloading Yes Yes Yes -Type of Offloading Surgical Shoe Knee Walker Surgical Shoe -Treatment Response -Debridement - Subq, 1st 20sq cm No No -Apply Skin Sub - 1st 25 sq cm - Feet 1 1 -Epicord (per sq cm) 6 6 -Epifix (per sq cm) Pain Scale: 0-10 Numeric Is Patient Pain Free? Yes Yes Yes 09/27/20 10/04/20 11:11 10:00 Wound Center Nurse 2 2-left dorsal foot -Time 11:11 10:00 -Correct Patient Yes Yes -Correct Side, Site, Position Yes Yes -Correct Procedure Yes Yes -Procedure Performed Yes Yes -Type of Procedure Debridement Debridement -Clinical Debridement Subcutaneous Subcutaneous -Tissue Removed Subcutaneous Subcutaneous -Post Debridement (cm) - Length 4.8 6 -Post Debridement (cm) - Width 2 1 -Post Debridement (cm) - Depth 0.1 0.1 -Total Square (Post) (cm) 9.6 6 -Area of Debridement (cm) - Length 4.8 6 -Area of Debridement (cm) - Width 2 1 -Total Square (Area) (cm) 9.6 6 -Tunneling No No -Undermining/Tunneling No No -Circular Undermining No No -Wound/Ulcer Outcome Not Healed Not Healed -Ulcer Cleansing Rinsed/ Rinsed/ Irrigated with Irrigated with Saline Saline -Foul Odor after Cleansing No No -Bioengineered Tissue No No -Bleeding Controlled with Pressure Pressure -Offloading Yes Yes -Type of Offloading Surgical Shoe Surgical Shoe -Treatment Response Procedure Procedure Tolerated Well Tolerated Well -Debridement - Open, 1st 20sq cm -Debridement, Open, ea addt'l 20sq cm or part thereof -Debridement - Subq, 1st 20sq cm Yes Yes 1. L foot plantar -Time 10:01 -Correct Patient No Yes -Correct Side, Site, Position No Yes -Correct Procedure No Yes -Procedure Performed No Yes -Type of Procedure Debridement -Clinical Debridement Subcutaneous -Tissue Removed Subcutaneous -Post Debridement (cm) - Length 1.5 -Post Debridement (cm) - Width 1.8 -Post Debridement (cm) - Depth 0.2 -Total Square (Post) (cm) 2.70 -Area of Debridement (cm) - Length 1.5 -Area of Debridement (cm) - Width 1.8 -Total Square (Area) (cm) 2.70 -Tunneling No -Undermining/Tunneling No -Circular Undermining No No -Wound/Ulcer Outcome Not Healed -Ulcer Cleansing Rinsed/ Irrigated with Saline -Foul Odor after Cleansing No -Bioengineered Tissue Yes -Type of Bioengineered Tissue Epicord -Expiration Date 05/06/25 -Product Lot Number [id number] -Percent Used 100 -Lot number of Saline Used [id number] -Bleeding Controlled with Pressure -Other -Offloading Yes -Type of Offloading Surgical Shoe -Treatment Response Procedure Tolerated Well -Debridement - Subq, 1st 20sq cm No -Apply Skin Sub - 1st 25 sq cm - Feet 1 -Epicord (per sq cm) 0 -Epifix (per sq cm) 4 Pain Scale: 0-10 Numeric Is Patient Pain Free? Yes Yes WC - Nurse 3 - General Ulcer D/C NN Start: 09/06/20 10:34 Freq: Status: Active Protocol: Activity Type Activity Date Activity User E-Sign Co-Sign Detail Recorded Client Recorded Date Recorded By Document 09/06/20 11:41 RB [id number] 09/06/20 11:42 RB Document 09/13/20 11:02 BM [id number] 09/13/20 11:03 BMF Document 09/27/20 11:42 KR [id number] 09/27/20 11:44 KR Document 10/04/20 10:26 KR [id number] 10/04/20 10:27 KR 09/06/20 09/13/20 09/27/20 11:41 11:02 11:42 Wound Care Nurse 3 2-left dorsal foot -Ulcer Cleansing Rinsed/ Rinsed/ Irrigated with Irrigated with Saline Saline -Foul Odor after Cleansing No No -Primary Dressing Applied Other -Other Dressing hydrogel today -Primary Dressing Covered/Secured with Dry Gauze,Dry Dry Gauze & Dry Gauze & Gauze & Roll Roll Gauze, Roll Gauze, Gauze,Secured Secured with Secured with with Tape Tape Tape 1. L foot plantar -Ulcer Cleansing -Foul Odor after Cleansing -Primary Dressing Applied Other -Other Dressing epicord left intact -Primary Dressing Covered/Secured with Dry Gauze,Dry Dry Gauze & Gauze & Roll Roll Gauze, Gauze,Secured Secured with with Tape Tape Left -Compression Wrap Neo Wrap -Other neo to secure drsg Treatment Response Procedure Procedure Tolerated Well Tolerated Well Vital Signs Blood Pressure (90/60-120/80) 110/60 Blood Pressure Mean (mm Hg) 76 Source Monitor Position Sitting Blood Pressure Location Right Arm Pain Scale: 0-10 Numeric Is Patient Pain Free? Yes Yes Yes WC - Visit Discharge Discharge Condition Stable Stable Stable Ambulatory Status Wheelchair Ambulatory Ambulatory Transportation Private Auto Private Auto Private Auto Accompanied by sister Medication Reconcilliation completed & No provided to patient/care provider Clinical Summary of Care Provided Yes Facility Type Home Health 10/04/20 10:26 Wound Care Nurse 3 2-left dorsal foot -Ulcer Cleansing -Foul Odor after Cleansing -Primary Dressing Applied -Other Dressing -Primary Dressing Covered/Secured with Dry Gauze, Secured with Tape 1. L foot plantar -Ulcer Cleansing Rinsed/ Irrigated with Saline -Foul Odor after Cleansing No -Primary Dressing Applied C Hydrogel ($) -Other Dressing -Primary Dressing Covered/Secured with Dry Gauze,Dry Gauze & Roll Gauze,Secured with Tape Left -Compression Wrap -Other Treatment Response Procedure Tolerated Well Vital Signs Blood Pressure (90/60-120/80) Blood Pressure Mean (mm Hg) Source Position Blood Pressure Location Pain Scale: 0-10 Numeric Is Patient Pain Free? Yes WC - Visit Discharge Discharge Condition Stable Ambulatory Status Ambulatory Transportation Private Auto Accompanied by Medication Reconcilliation completed & provided to patient/care provider Clinical Summary of Care Provided Facility Type Wound debrided: plantar forefoot Laterality: Left Wound Grade/Stage: grade 3 Type of Debridement: Excisional debridement Anesthesia Used: 5% Lidocaine Gel Depth: in the subcutaneous layer Percentage of wound debrided: 100 Instrument Used: #15 blade Tissue Removed: fibrous, devitalized subcutaneous, biofilm, slough Severity: Fat Layer Exposed Amount of bleeding with debridement: Mild Bleeding Controlled with: Pressure Patient tolerated procedure well - Additional Wound Wound debrided: dorsal foot Laterality: Left Wound Grade/Stage: grade 1 Type of Debridement: Selective debridement Anesthesia Used: 4% Lidocaine Solution Depth: Down to and including healthy tissue Percentage of wound debrided: 50 Instrument Used: #15 blade - cross rodrigez to remaining fibrous/eschar site to increase santyl penetration Tissue Removed: fibrous, devitalized tissue, biofilm, slough Severity: Fat Layer Exposed Amount of bleeding with debridement: Mild Bleeding Controlled with: Pressure Patient tolerated procedure: Patient tolerated procedure well Assessment/Plan Active Problems (Last Updated 07/09/20 @ 22:[address] Zachary Jean MD) Ulcer of left foot with fat layer exposed (Chronic) Delayed wound healing (Chronic) Peripheral vascular disease (Chronic) small vessel disease Eschar of foot (Chronic) ESRD (end stage renal disease) (Chronic) Diabetes (Chronic) e11.42 Assessment: Left foot ulcer plantar, no infection. Callus lateral foot. Eschar dorsal left foot/now ulcer with fat layer exposed, no infection. Diabetes with neuropathy. Renal disease. Small vessel disease. Delayed healing Plan: I reviewed and discussed his case. He was reassured no local signs of infection are noted locally or systemically. To monitor closely. Debridement was performed today to the dorsal foot. To continue Santyl. The callus was debrided and there he was reassured no ulcers present. Plantar foot ulcer site was also debrided and reduced depth and improvement in granulation tissue is noted. I recommend application of advanced wound healing product, epifix. This applied today according standard protocol and was secured with a wound veil and Steri-Strips after verbal consent was obtained. He tolerated this well. he was advised to keep this clean, dry, and intact until follow-up next week. He is reassured no signs of local infection are noted. To apply Santyl nickel thickness to the dorsal foot over the eschar. To continue strict offloading with wheelchair use and surgical shoe with offloading liners. I recommend application of advanced wound healing product, epicord next week again for limb salvage. The benefits, application course, and anticipated healing time and management were discussed. His last blood flow studies were reviewed from 07-26-2020 with ABIs and ankle waveforms. There are diminished toe pressures which are consistent with small vessel disease on the left lower extremity. To follow-up with vascular surgery as previously advised. I will confirm his prior intervention if any with medical records release request. Continue with nutritional supplementation Gaudencio to optimize healing. To return to clinic in 1 week or call sooner if he has any questions or concerns.
== END 2020-10-05 23:59 ==
LOC: WC 09:30
PROVIDERS: PCP Family Medicine; Referring Provider Podiatrist; Visit Provider Podiatrist
DX: E11.621 Type 2 diabetes mellitus with foot ulcer (principal); L97.522 Non-pressure chronic ulcer of other part of left foot with fat layer exposed; T14.8XXD Other injury of unspecified body region, subsequent encounter; N18.6 End stage renal disease; E11.22 Type 2 diabetes mellitus with diabetic chronic kidney disease; E11.40 Type 2 diabetes mellitus with diabetic neuropathy, unspecified; E11.51 Type 2 diabetes mellitus with diabetic peripheral angiopathy without gangrene; I67.82 Cerebral ischemia
CPT/HCPCS: 11042; 15275; 97597; 97598; 99213; Q4186; Q4187; G0463

== ENCOUNTER → 2020-10-12 12:10 | Outpatient (CLI) | payer MEDICARE, MEDICAID, SELFPAY ==
[2020-09-20 10:25] VITALS: BMI 27.0
[2020-10-11 09:46] VITALS: BMI 27.0
--- NOTE | 2020-10-12 12:13 | ART_ITS ---
Reason For Study: PVD Procedure A bilateral lower extremity continuous wave Doppler with analog waveform analysis and ankle brachial indexes. Left Segmental Pressures Left posterior tibial artery = 137mmHg. Left dorsalis pedis artery = 138mmHg. Left digit = 37 mmHg. The left dorsalis pedis waveforms are biphasic. The left posterior tibial artery waveforms are biphasic. No LUE BP's per pt. Right Segmental Pressures Right brachial= 127mmHg. Right posterior tibial artery = 171mmHg. Right digit = 83 mmHg. The right dorsalis pedis waveforms are triphasic. The right posterior tibial artery waveforms are biphasic. DPA is noncompressible. Indices The right ankle brachial index by the posterior tibial artery is 1.35. The right digital-brachial index is .65. DPA is noncompressible. The left ankle brachial index by the dorsalis pedis is 1.09. The left ankle brachial index by the posterior tibial artery is 1.08. The left digital-brachial index is .29. Interpretation Summary Right leg triphasic and GERALDINE 1.35. Left leg biphasic and 1.09. DBI 0.65 and 0.29. Ordering Physician: Ryan Barriga Performed By: ALICIA MOCK Kev
--- NOTE | 2020-10-12 12:13 | ADUL_ITS ---
Reason For Study: PVD Left Velocities Ext Iliac Artery, dist = 112.5 cm./sec. Common Femoral Artery, mid = 62.1 cm./sec. Supf. Femoral Artery, prox = 81.8 cm./sec. Supf. Femoral Artery, mid = 92.8 cm./sec. Supf. Femoral Artery, dist = 74.4 cm./sec. Profunda Femoral Artery = 67.1 cm./sec. Popliteal Artery, proximal, = 59.7 cm./sec. Popliteal Artery, mid = 73.2 cm./sec. Popliteal Artery, distal = 47.4 cm./sec. Post Tibial Artery, mid = 24.0 cm./sec. Peroneal Artery, prox = 81.7 cm./sec. Peroneal Artery, mid = 69.4 cm./sec. Peroneal Artery,dist. = 106.2 cm./sec. Ant.Tibial Artery, prox = 71.9 cm./sec. Ant Tibial Artery, mid = 102.6 cm./sec. Ant. Tibial Artery, distal = 84.2 cm./sec. 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 Interpretation Summary Left posterior tibial appears occluded in segments. Otherwise widely patent left lower extremity. Ordering Physician: Ryan Barriga Performed By: Alexis Byers RVT
== END ==
PROVIDERS: PCP Family Medicine; Referring Provider Surgery Vascular Surgery; Visit Provider Surgery Vascular Surgery
DX: I77.1 Stricture of artery (principal); I70.213 Atherosclerosis of native arteries of extremities with intermittent claudication, bilateral legs; E10.9 Type 1 diabetes mellitus without complications; N28.9 Disorder of kidney and ureter, unspecified; I10 Essential (primary) hypertension
CPT/HCPCS: 93922; 93926

== ENCOUNTER 2020-11-01 09:15 | Outpatient (RCR) | payer MEDICARE, MEDICAID, SELFPAY ==
[2020-10-06 00:35] VITALS: BP 135/70; PULSE 78; RESP 20; TEMP 35.9
[2020-10-11 09:46] VITALS: BP 123/65; PULSE 87; RESP 18; TEMP 36.4; BMI 27.0
--- NOTE | 2020-10-11 11:25 | PCM.WC.PN ---
(1) Osteomyelitis Status: Acute Code(s): M86.9 - Osteomyelitis, unspecified (2) Ulcer of left foot with fat layer exposed Status: Chronic Code(s): L97.522 - Non-pressure chronic ulcer of other part of left foot with fat layer exposed (3) Delayed wound healing Status: Chronic Code(s): T14.8XXD - Other injury of unspecified body region, subsequent encounter (4) ESRD (end stage renal disease) Status: Chronic Code(s): N18.6 - End stage renal disease (5) Renal transplant recipient Status: Chronic Code(s): Z94.0 - Kidney transplant status (6) Diabetes Status: Chronic Code(s): E11.9 - Type 2 diabetes mellitus without complications Comment: e11.42 Type of Wound Date of Service: 10/11/20 Chief Complaint: Left foot ulcer History of Wound: This 55-year-old male sustained a foot infection in which he went for emergent surgery on 07-21-2020 at [facility] with Dr. Valdez. 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 He uses a surgical shoe and put weight on his heel to offload and also uses a wheelchair at times. He had a plantar epifix applied last week and he has kept this clean, dry, and intact. Home health has been helping him and this is going well. He has been applying santyl to the top of his foot at the site of eschar. He is with his sister today. Progress of Wound: Improving - Physical Exam Vital Signs Temp Pulse Resp BP 97.6 F L 87 18 123/65 H 10/11/20 09:46 10/11/20 09:46 10/11/20 09:46 10/11/20 09:46 General: Alert, Oriented x3, Cooperative, No apparent distress HEENT: Atraumatic Extremities: No cyanosis, No edema, Capillary Refill Less than 3 Seconds, No Calf Tenderness, Diminished Peripheral Pulses Skin: Ulcer/ Wound - No purulence, erythema, streaking, odor, infection. The dorsal ulcer has resolution of distal eschar is now fibrous and granular. The plantar ulcer is more superficial and reduction in size with peripheral epithelialization is noted. The adjacent skin is hairless and atrophic Wound Measurements and Assessment WC - Nurse 1 - General Ulcer Measurement Start: 10/11/20 09:46 Freq: Status: Active Protocol: Activity Type Activity Date Activity User E-Sign Co-Sign Detail Recorded Client Recorded Date Recorded By Document 10/11/20 09:46 NH [id number] 10/11/20 09:58 NH 10/11/20 09:46 Wound Center Nurse 1 [Ulcer Assessment] 2-left dorsal foot -Combined with other wound No -Current Size (cm) - Length 5.1 -Current Size (cm) - Width 1 -Current Size (cm) - Depth 0.2 -Total Square Cm 5.1 -Tunneling No -Undermining/Tunneling No -Circular Undermining No -Exudate Amt Medium -Exudate Type Serosanguineous -Wound Margin Thickened & Rolled Under -Granulation Amt Medium (34-66%) -Granulation Quality [place] -Slough/Fibrin Yes -Necrosis Amt Small (1-33%) -Necrotic Tissue Type Adherent Slough -Structure Exposed N/A -Texture (Nilda-wound Skin Appearance) Assessed, Scarring -Moisture (Nilda-wound Skin Appearance Assessed ) -Color (Nilda-wound Skin Appearance) Assessed -Temperature (Nilda-wound Skin No Abnormality Appearance) (Pt Warm) -Tenderness on Palpation (Nilda-wound No Skin Appearance) -Ulcer Cleansing Wound Cleanser -Foul Odor after Cleansing No -Anesthetic Used 5% Lidocaine Gel 1. L foot plantar -Combined with other wound No -Current Size (cm) - Length 0.1 -Current Size (cm) - Width 0.1 -Current Size (cm) - Depth 0.1 -Total Square Cm 0.01 -Tunneling No -Undermining/Tunneling No -Circular Undermining No -Exudate Amt Small -Exudate Type Serosanguineous -Wound Margin Flat & Intact -Granulation Amt None Present (0 %) -Slough/Fibrin Yes -Necrosis Amt Large (67-100%) -Necrotic Tissue Type Eschar -Structure Exposed N/A -Texture (Nilda-wound Skin Appearance) Assessed -Moisture (Nilda-wound Skin Appearance Dry/Scaly ) -Color (Nilda-wound Skin Appearance) Assessed -Temperature (Nilda-wound Skin No Abnormality Appearance) (Pt Warm) -Tenderness on Palpation (Nilda-wound No Skin Appearance) -Ulcer Cleansing Wound Cleanser -Foul Odor after Cleansing No -Anesthetic Used 5% Lidocaine Gel WC - Nurse 3 - General Ulcer D/C NN Start: 10/11/20 09:46 Freq: Status: Active Protocol: Activity Type Activity Date Activity User E-Sign Co-Sign Detail Recorded Client Recorded Date Recorded By Document 10/11/20 10:23 NH [id number] 10/11/20 10:25 NH 10/11/20 10:23 Wound Care Nurse 3 [Wound Dressing] 2-left dorsal foot -Other Dressing hydrogel for santyl replacement -Primary Dressing Covered/Secured Dry Gauze, with Secured with Tape 1. L foot plantar -Primary Dressing Covered/Secured Dry Gauze, with Secured with Tape [Compression Applied] Left -Compression Wrap Neo Wrap WC - Visit Discharge [Visit Discharge Information] -Discharge Condition Stable -Ambulatory Status Ambulatory -Transportation Private Auto -Medication Reconcilliation completed No & provided to patient/care provider -Clinical Summary of Care Provided Yes -Notes: keep dry Musculoskeletal: No Tenderness to Palpation of Joints or Extremities, Muscle Wasting, - - Second toe amputation Neurological: - - Lack of normal epicritic sensation is consistent with neuropathy status Psych/Mental Status: Normal Affect, Appropriate Debridement Note Post-Debridement Measurements/Treatment - Nurse 3 - General Ulcer D/C NN Start: 10/11/20 09:46 Freq: Status: Active Protocol: Activity Type Activity Date Activity User E-Sign Co-Sign Detail Recorded Client Recorded Date Recorded By Document 10/11/20 10:23 NH [id number] 10/11/20 10:25 NH 10/11/20 10:23 Wound Care Nurse 3 2-left dorsal foot -Other Dressing hydrogel for santyl replacement -Primary Dressing Covered/Secured with Dry Gauze, Secured with Tape 1. L foot plantar -Primary Dressing Covered/Secured with Dry Gauze, Secured with Tape Left -Compression Wrap Neo Wrap WC - Visit Discharge Discharge Condition Stable Ambulatory Status Ambulatory Transportation Private Auto Medication Reconcilliation completed & No provided to patient/care provider Clinical Summary of Care Provided Yes Notes: keep dry Wound debrided: plantar distal forefoot Laterality: Left Wound Grade/Stage: grade 3 Type of Debridement: Excisional debridement Anesthesia Used: 5% Lidocaine Gel Depth: in the subcutaneous layer Percentage of wound debrided: 100 Instrument Used: #15 blade Tissue Removed: fibrous, devitalized subcutaneous, biofilm, slough Severity: Fat Layer Exposed Amount of bleeding with debridement: Mild Bleeding Controlled with: Pressure Patient tolerated procedure well - Additional Wound Wound debrided: dorsal foot Laterality: Left Wound Grade/Stage: grade 1 Type of Debridement: Excisional debridement Anesthesia Used: 5% Lidocaine Gel Depth: in the subcutaneous layer Percentage of wound debrided: 100 Instrument Used: #15 blade Tissue Removed: fibrous, devitalized subcutaneous, biofilm, slough Severity: Fat Layer Exposed Amount of bleeding with debridement: Mild Bleeding Controlled with: Pressure Patient tolerated procedure: Patient tolerated procedure well Assessment/Plan Active Problems (Last Updated 07/09/20 @ 22:[address] Zachary Jean MD) Osteomyelitis (Acute) Ulcer of left foot with fat layer exposed (Chronic) Delayed wound healing (Chronic) ESRD (end stage renal disease) (Chronic) Renal transplant recipient (Chronic) Diabetes (Chronic) e11.42 Assessment: Left foot ulcer plantar, no infection. Eschar dorsal left foot/now ulcer with fat layer exposed, no infection. Diabetes with neuropathy. Renal disease. Small vessel disease. Delayed healing Plan: I reviewed and discussed his case. He was reassured no local signs of infection are noted locally or systemically. To monitor closely. Debridement was performed today to the dorsal foot. To continue Santyl to proximal dorsal foot ulcer site. Plantar foot ulcer site was also debrided and reduced depth and improvement in granulation tissue is noted. I recommend application of advanced wound healing product, epifix. This applied today according standard protocol and was secured with a wound veil and Steri-Strips after verbal consent was obtained. He tolerated this well. He was advised to keep this clean, dry, and intact until follow-up next week. He was reassured no signs of local infection are noted. To continue strict offloading with wheelchair use and surgical shoe with offloading liners. I recommend application of advanced wound healing product, epicord next week again for limb salvage. The benefits, application course, and anticipated healing time and management were discussed. His last blood flow studies were reviewed from 07-26-2020 with ABIs and ankle waveforms. There are diminished toe pressures which are consistent with small vessel disease on the left lower extremity. To follow-up with vascular surgery as previously advised. He has a vascular surgery appointment scheduled for next week and inquires whether it is necessary to go to this. He was reassured that he is healing in a very delayed manner and I encouraged he follows through on this. I recommend that he continues with nutritional supplementation Gaudencio to optimize healing. To return to clinic in 1 week or call sooner if he has any questions or concerns.
[2020-10-18 09:35] VITALS: BP 128/62; PULSE 74; RESP 18; TEMP 36.1; BMI 27.0
--- NOTE | 2020-10-18 12:47 | PCM.WC.PN ---
(1) Osteomyelitis Status: Acute Code(s): M86.9 - Osteomyelitis, unspecified (2) Ulcer of left foot with fat layer exposed Status: Chronic Code(s): L97.522 - Non-pressure chronic ulcer of other part of left foot with fat layer exposed (3) Delayed wound healing Status: Chronic Code(s): T14.8XXD - Other injury of unspecified body region, subsequent encounter (4) ESRD (end stage renal disease) Status: Chronic Code(s): N18.6 - End stage renal disease (5) Renal transplant recipient Status: Chronic Code(s): Z94.0 - Kidney transplant status (6) Diabetes Status: Chronic Code(s): E11.9 - Type 2 diabetes mellitus without complications Comment: e11.42 Type of Wound Date of Service: 10/18/20 Chief Complaint: Left foot ulcer History of Wound: This 55-year-old male sustained a foot infection in which he went for emergent surgery on 07-21-2020 at [facility] with Dr. Valdez. He subsequently has been treated with a comprehensive wound healing plan including offloading, serial debridement, and terminal manager course of IV antibiotics under the management of infectious disease. He uses a surgical shoe and put weight on his heel to offload and also uses a wheelchair at times. He had a plantar epifix applied last week and he has kept this clean, dry, and intact. Home health has been helping him and this is going well. He has been applying santyl to the top of his foot at the site of eschar. He is with his sister today. Progress of Wound: Improving - Physical Exam Vital Signs Temp Pulse Resp BP 97.0 F L 74 18 128/62 H 10/18/20 09:35 10/18/20 09:35 10/18/20 09:35 10/18/20 09:35 General: Alert, Oriented x3, Cooperative, No apparent distress HEENT: Atraumatic Extremities: No cyanosis, Capillary Refill Less than 3 Seconds, No Calf Tenderness, Diminished Peripheral Pulses Skin: Ulcer/ Wound - No purulence, erythema, streaking, odor, infection. Peripheral skin is atrophic and hairless. Dorsal ulcer is fibrous and eschar. Plantar ulcer is reduced in size and depth and is granular and healthy Wound Measurements and Assessment WC - Nurse 1 - General Ulcer Measurement Start: 10/11/20 09:46 Freq: Status: Active Protocol: Activity Type Activity Date Activity User E-Sign Co-Sign Detail Recorded Client Recorded Date Recorded By Document 10/18/20 09:35 ME [id number] 10/18/20 09:48 ME 10/18/20 09:35 Wound Center Nurse 1 [Ulcer Assessment] 2-left dorsal foot -Current Size (cm) - Length 0.1 -Current Size (cm) - Width 0.1 -Current Size (cm) - Depth 0.1 -Total Square Cm 0.01 -Epithelialization Medium 34-66% -Exudate Amt Small -Exudate Type Serosanguineous -Wound Margin Flat & Intact -Granulation Amt Large (67-100%) -Granulation Quality Pale,[place] -Necrosis Amt Small (1-33%) -Necrotic Tissue Type Adherent Slough -Texture (Nilda-wound Skin Appearance) Assessed -Moisture (Nilda-wound Skin Appearance Assessed ) -Color (Nilda-wound Skin Appearance) Assessed -Temperature (Nilda-wound Skin No Abnormality Appearance) (Pt Warm) -Tenderness on Palpation (Nilda-wound No Skin Appearance) -Ulcer Cleansing Rinsed/ Irrigated with Saline -Foul Odor after Cleansing No -Anesthetic Used 4% Lidocaine Solution 1. L foot plantar -Current Size (cm) - Length 0.1 -Current Size (cm) - Width 0.1 -Current Size (cm) - Depth 0.1 -Total Square Cm 0.01 -Epithelialization Medium 34-66% -Exudate Amt Small -Exudate Type Serosanguineous -Wound Margin Flat & Intact -Granulation Amt Medium (34-66%) -Granulation Quality Pale,[place] -Necrosis Amt Small (1-33%) -Necrotic Tissue Type Adherent Slough -Texture (Nilda-wound Skin Appearance) Assessed -Moisture (Nilda-wound Skin Appearance Assessed ) -Color (Nilda-wound Skin Appearance) Assessed -Temperature (Nilda-wound Skin No Abnormality Appearance) (Pt Warm) -Tenderness on Palpation (Nilda-wound No Skin Appearance) -Ulcer Cleansing Wound Cleanser -Foul Odor after Cleansing No -Anesthetic Used 4% Lidocaine Solution [Edema Assessment] -Lower Limb Edema Present NA WC - Nurse 2 - General Ulcer CM Notes Start: 10/11/20 09:46 Freq: Status: Active Protocol: Activity Type Activity Date Activity User E-Sign Co-Sign Detail Recorded Client Recorded Date Recorded By Document 10/18/20 10:06 ERNESTINE [id number] 10/18/20 10:15 ERNESTINE 10/18/20 10:06 Wound Center Nurse 2 [Procedure/Treatment] 2-left dorsal foot -Time 10:12 -Correct Patient Yes -Correct Side, Site, Position Yes -Correct Procedure Yes -Procedure Performed Yes -Type of Procedure Debridement -Clinical Debridement Subcutaneous -Tissue Removed Subcutaneous -Post Debridement (cm) - Length 4.9 -Post Debridement (cm) - Width 1.7 -Post Debridement (cm) - Depth 0.1 -Total Square (Post) (cm) 8.33 -Area of Debridement (cm) - Length 4.9 -Area of Debridement (cm) - Width 1.7 -Total Square (Area) (cm) 8.33 -Tunneling No -Undermining/Tunneling No -Circular Undermining No -Wound/Ulcer Outcome Not Healed -Ulcer Cleansing Rinsed/ Irrigated with Saline -Foul Odor after Cleansing No -Bioengineered Tissue No -Bleeding Controlled with Pressure -Offloading Yes -Type of Offloading Camwalker -Treatment Response Procedure Tolerated Well -Debridement - Subq, 1st 20sq cm Yes 1. L foot plantar -Time 10:13 -Correct Patient Yes -Correct Side, Site, Position Yes -Correct Procedure Yes -Procedure Performed Yes -Type of Procedure Debridement -Clinical Debridement Subcutaneous -Tissue Removed Subcutaneous -Post Debridement (cm) - Length 1.5 -Post Debridement (cm) - Width 1 -Post Debridement (cm) - Depth 0.2 -Total Square (Post) (cm) 1.5 -Area of Debridement (cm) - Length 1.5 -Area of Debridement (cm) - Width 1.0 -Total Square (Area) (cm) 1.50 -Tunneling No -Undermining/Tunneling No -Circular Undermining No -Wound/Ulcer Outcome Not Healed -Ulcer Cleansing Rinsed/ Irrigated with Saline -Foul Odor after Cleansing No -Bioengineered Tissue Yes -Type of Bioengineered Tissue Epifix -Expiration Date 06/06/25 -Product Lot Number [id number] -Percent Used 100 -Lot number of Saline Used [id number] -Bleeding Controlled with Pressure -Offloading Yes -Type of Offloading Camwalker -Treatment Response Procedure Tolerated Well -Debridement - Subq, 1st 20sq cm No -Apply Skin Sub - 1st 25 sq cm - Feet 1 -Epifix (per sq cm) 0 -Epifix 18mm Disc 3 Query Text:18mm = 3 [See Physician Procedure note for Specifics] Pain Scale: 0-10 Numeric [Pain] -Is Patient Pain Free? Yes Musculoskeletal: Muscle Wasting, - - Second toe amputation Neurological: - - Lack of epicritic sensation to light touch Psych/Mental Status: Normal Affect, Appropriate Debridement Note Post-Debridement Measurements/Treatment WC - Nurse 2 - General Ulcer CM Notes Start: 10/11/20 09:46 Freq: Status: Active Protocol: Activity Type Activity Date Activity User E-Sign Co-Sign Detail Recorded Client Recorded Date Recorded By Document 10/11/20 12:40 PL [id number] 10/11/20 12:43 PL Document 10/18/20 10:06 [id number] 10/18/20 10:15 JF 10/11/20 10/18/20 12:40 10:06 Wound Center Nurse 2 2-left dorsal foot -Time 10:09 10:12 -Correct Patient Yes Yes -Correct Side, Site, Position Yes Yes -Correct Procedure Yes Yes -Procedure Performed Yes Yes -Type of Procedure Debridement Debridement -Clinical Debridement Subcutaneous Subcutaneous -Tissue Removed Subcutaneous Subcutaneous -Post Debridement (cm) - Length 5.1 4.9 -Post Debridement (cm) - Width 1.0 1.7 -Post Debridement (cm) - Depth 0.2 0.1 -Total Square (Post) (cm) 5.10 8.33 -Area of Debridement (cm) - Length 5.1 4.9 -Area of Debridement (cm) - Width 1.0 1.7 -Total Square (Area) (cm) 5.10 8.33 -Tunneling No No -Undermining/Tunneling No No -Circular Undermining No No -Wound/Ulcer Outcome Not Healed Not Healed -Ulcer Cleansing Rinsed/ Rinsed/ Irrigated with Irrigated with Saline Saline -Foul Odor after Cleansing No No -Bioengineered Tissue Yes No -Type of Bioengineered Tissue Epifix -Expiration Date 05/06/25 -Product Lot Number [id number] -Percent Used 100 -Lot number of Saline Used [id number] -Bleeding Controlled with Pressure Pressure -Offloading Yes -Type of Offloading Camwalker -Treatment Response Procedure Procedure Tolerated Well Tolerated Well -Debridement - Subq, 1st 20sq cm No Yes -Apply Skin Sub - 1st 25 sq cm - Feet 1 -Epifix (per sq cm) 4 1. L foot plantar -Time 10:13 -Correct Patient Yes -Correct Side, Site, Position Yes -Correct Procedure Yes -Procedure Performed Yes -Type of Procedure Debridement -Clinical Debridement Subcutaneous -Tissue Removed Subcutaneous -Post Debridement (cm) - Length 1.5 -Post Debridement (cm) - Width 1 -Post Debridement (cm) - Depth 0.2 -Total Square (Post) (cm) 1.5 -Area of Debridement (cm) - Length 1.5 -Area of Debridement (cm) - Width 1.0 -Total Square (Area) (cm) 1.50 -Tunneling No -Undermining/Tunneling No -Circular Undermining No -Wound/Ulcer Outcome Healed- Not Healed Epithelialized -Ulcer Cleansing Rinsed/ Irrigated with Saline -Foul Odor after Cleansing No -Bioengineered Tissue Yes -Type of Bioengineered Tissue Epifix -Expiration Date 06/06/25 -Product Lot Number [id number] -Percent Used 100 -Lot number of Saline Used [id number] -Bleeding Controlled with Pressure -Offloading Yes -Type of Offloading Camwalker -Treatment Response Procedure Tolerated Well -Debridement - Subq, 1st 20sq cm No -Apply Skin Sub - 1st 25 sq cm - Feet 1 -Epifix (per sq cm) 0 -Epifix 18mm Disc 3 Query Text:18mm = 3 Pain Scale: 0-10 Numeric Is Patient Pain Free? Yes Yes - Nurse 3 - General Ulcer D/C NN Start: 10/11/20 09:46 Freq: Status: Active Protocol: Activity Type Activity Date Activity User E-Sign Co-Sign Detail Recorded Client Recorded Date Recorded By Document 10/11/20 10:23 ME [id number] 10/11/20 10:25 ME 10/11/20 10:23 Wound Care Nurse 3 2-left dorsal foot -Other Dressing hydrogel for santyl replacement -Primary Dressing Covered/Secured with Dry Gauze, Secured with Tape 1. L foot plantar -Primary Dressing Covered/Secured with Dry Gauze, Secured with Tape Left -Compression Wrap Neo Wrap - Visit Discharge Discharge Condition Stable Ambulatory Status Ambulatory Transportation Private Auto Medication Reconcilliation completed & No provided to patient/care provider Clinical Summary of Care Provided Yes Notes: keep dry Wound debrided: plantar forefoot Laterality: Left Wound Grade/Stage: grade 3 Type of Debridement: Excisional debridement Anesthesia Used: 5% Lidocaine Gel Depth: in the subcutaneous layer Percentage of wound debrided: 100 Instrument Used: #15 blade Tissue Removed: fibrous, devitalized subcutaneous, biofilm, slough Severity: Fat Layer Exposed Amount of bleeding with debridement: Mild Bleeding Controlled with: Pressure Patient tolerated procedure well - Additional Wound Wound debrided: dorsal foot Laterality: Left Wound Grade/Stage: grade 1 Type of Debridement: Excisional debridement Anesthesia Used: 5% Lidocaine Gel Depth: in the subcutaneous layer Percentage of wound debrided: 100 Instrument Used: #15 blade Tissue Removed: fibrous, devitalized subcutaneous, biofilm, slough, eschar Severity: Fat Layer Exposed Amount of bleeding with debridement: Mild Bleeding Controlled with: Pressure Patient tolerated procedure: Patient tolerated procedure well Assessment/Plan Active Problems (Last Updated 07/09/20 @ 22:[address] Zachary Jean MD) Osteomyelitis (Acute) Ulcer of left foot with fat layer exposed (Chronic) Delayed wound healing (Chronic) ESRD (end stage renal disease) (Chronic) Renal transplant recipient (Chronic) Diabetes (Chronic) e11.42 Assessment: Left foot ulcer plantar, no infection. Eschar dorsal left foot/now ulcer with fat layer exposed, no infection. Diabetes with neuropathy. Renal disease. Small vessel disease. Delayed healing Plan: I reviewed and discussed his case. He was reassured no local signs of infection are noted locally or systemically. To monitor closely. Debridement was performed today to the dorsal foot. To continue Santyl to proximal dorsal foot ulcer site. Plantar foot ulcer site was also debrided and reduced depth and improvement in granulation tissue is noted. I recommend application of advanced wound healing product, epifix. This applied today according standard protocol and was secured with a wound veil and Steri-Strips after verbal consent was obtained. He tolerated this well. He was advised to keep this clean, dry, and intact until follow-up next week. He was reassured no signs of local infection are noted. To continue strict offloading with wheelchair use and surgical shoe with offloading liners. I recommend application of advanced wound healing product, epifix next week again for limb salvage. The benefits, application course, and anticipated healing time and management were discussed. His last blood flow studies were reviewed from 07-26-2020 with ABIs and ankle waveforms. There are diminished toe pressures which are consistent with small vessel disease on the left lower extremity. To follow-up with vascular surgery as previously advised. He had additional vascular testing completed and is scheduled to follow-up with Dr. Barriga next Friday. He was encouraged to proceed forward. I recommend that he continues with nutritional supplementation Gaudencio to optimize healing. To return to clinic in 1 week or call sooner if he has any questions or concerns.
[2020-10-25 11:06] VITALS: BP 131/66; PULSE 74; RESP 18; TEMP 36.6; BMI 27.0
--- NOTE | 2020-10-25 11:34 | PN.PCM_ITS ---
(1) Osteomyelitis Status: Acute Code(s): M86.9 - Osteomyelitis, unspecified (2) Ulcer of left foot with fat layer exposed Status: Chronic Code(s): L97.522 - Non-pressure chronic ulcer of other part of left foot with fat layer exposed (3) Delayed wound healing Status: Chronic Code(s): T14.8XXD - Other injury of unspecified body region, subsequent encounter (4) ESRD (end stage renal disease) Status: Chronic Code(s): N18.6 - End stage renal disease (5) Renal transplant recipient Status: Chronic Code(s): Z94.0 - Kidney transplant status (6) Diabetes Status: Chronic Code(s): E11.9 - Type 2 diabetes mellitus without complications Comment: e11.42 (7) Tinea unguium Status: Chronic Code(s): B35.1 - Tinea unguium (8) Other hereditary and idiopathic neuropathies Status: Chronic Code(s): G60.8 - Other hereditary and idiopathic neuropathies Type of Wound Date of Service: 10/25/20 Chief Complaint: Left foot ulcer History of Wound: This 55-year-old male sustained a foot infection in which he went for emergent surgery on 07-21-2020 at [facility] with Dr. Valdez. 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 He uses a surgical shoe and put weight on his heel to offload and also uses a wheelchair at times. He also uses a walker. He had a plantar epifix applied last week and he has kept this clean, dry, and intact. Home health has been helping him with dorsal foot Santyl applications every other day, and this is going well. He is with his sister today. He denies fever, chill, nausea, vomiting. He also has long thick toenails in which she does not feel safe performing nail trimming on his own. He asked for help. He is at risk and has a history of amputation and rest paresthesias consistent with neuropathy. He also has peripheral vascular disease and diabetes. Progress of Wound: Improving - Physical Exam Vital Signs Temp Pulse Resp BP 98 F 74 18 131/66 H 10/25/20 11:06 10/25/20 11:06 10/25/20 11:06 10/25/20 11:06 General: Alert, Oriented x3, Cooperative, No apparent distress Extremities: No cyanosis, Capillary Refill Less than 3 Seconds, No Calf Tenderness - Compartment soft. Negative Huff bilateral, Diminished Peripheral Pulses, Edema - Decreased Skin: Ulcer/ Wound - Plantar left foot ulcer granular base more superficial with peripheral epithelialization and no infection. Dorsal ulcer is fibrous with intermittent eschar and some intermittent granulation tissue. There is no purulence, erythema, streaking, odor, deep tissue exposure bilateral, - - Toenails long thick dystrophic with subungual debris right 1, 2, 3, 4, 5 and left 1, 3, 4, 5. His skin is atrophic and hairless bilateral lower extremities Wound Measurements and Assessment WC - Nurse 1 - General Ulcer Measurement Start: 10/11/20 09:46 Freq: Status: Active Protocol: Activity Type Activity Date Activity User E-Sign Co-Sign Detail Recorded Client Recorded Date Recorded By Document 10/25/20 11:06 RB [id number] 10/25/20 11:10 RB 10/25/20 11:06 Wound Center Nurse 1 [Ulcer Assessment] 2-left dorsal foot -Combined with other wound No -Current Size (cm) - Length 5 -Current Size (cm) - Width 2 -Current Size (cm) - Depth 0.2 -Total Square Cm 10 -Tunneling No -Undermining/Tunneling No -Circular Undermining No -Exudate Amt Small -Exudate Type Serosanguineous -Wound Margin Flat & Intact -Granulation Amt Medium (34-66%) -Granulation Quality [place] -Slough/Fibrin Yes -Necrosis Amt Small (1-33%) -Necrotic Tissue Type Adherent Slough -Structure Exposed N/A -Texture (Nilda-wound Skin Appearance) Assessed, Scarring -Moisture (Nilda-wound Skin Appearance Assessed ) -Color (Nilda-wound Skin Appearance) Assessed -Temperature (Nilda-wound Skin No Abnormality Appearance) (Pt Warm) -Tenderness on Palpation (Nilda-wound No Skin Appearance) -Ulcer Cleansing Wound Cleanser -Foul Odor after Cleansing No -Anesthetic Used 4% Lidocaine Solution 1. L foot plantar -Combined with other wound No -Current Size (cm) - Length 1 -Current Size (cm) - Width 1 -Current Size (cm) - Depth 0.1 -Total Square Cm 1 -Tunneling No -Undermining/Tunneling No -Circular Undermining No -Exudate Amt Small -Exudate Type Serosanguineous -Wound Margin Flat & Intact -Granulation Amt Medium (34-66%) -Granulation Quality [place] -Slough/Fibrin Yes -Necrosis Amt Large (67-100%) -Necrotic Tissue Type Eschar -Structure Exposed N/A -Texture (Nilda-wound Skin Appearance) Assessed, Scarring -Moisture (Nilda-wound Skin Appearance Assessed ) -Color (Nilda-wound Skin Appearance) Assessed -Temperature (Nilda-wound Skin No Abnormality Appearance) (Pt Warm) -Tenderness on Palpation (Nilda-wound No Skin Appearance) -Ulcer Cleansing Wound Cleanser -Foul Odor after Cleansing No -Anesthetic Used 4% Lidocaine Solution WC - Nurse 2 - General Ulcer CM Notes Start: 10/11/20 09:46 Freq: Status: Active Protocol: Activity Type Activity Date Activity User E-Sign Co-Sign Detail Recorded Client Recorded Date Recorded By Document 10/25/20 11:22 ERNESTINE [id number] 10/25/20 11:32 ERNESTINE 10/25/20 11:22 Wound Center Nurse 2 [Procedure/Treatment] 2-left dorsal foot -Time 11:23 -Correct Patient Yes -Correct Side, Site, Position Yes -Correct Procedure Yes -Procedure Performed Yes -Type of Procedure Debridement -Clinical Debridement Subcutaneous -Tissue Removed Subcutaneous -Post Debridement (cm) - Length 5 -Post Debridement (cm) - Width 2.1 -Post Debridement (cm) - Depth 0.2 -Total Square (Post) (cm) 10.5 -Area of Debridement (cm) - Length 5 -Area of Debridement (cm) - Width 2.1 -Total Square (Area) (cm) 10.5 -Tunneling No -Undermining/Tunneling No -Circular Undermining No -Wound/Ulcer Outcome Not Healed -Ulcer Cleansing Rinsed/ Irrigated with Saline -Foul Odor after Cleansing No -Bioengineered Tissue No -Bleeding Controlled with Pressure -Offloading Yes -Type of Offloading Camwalker -Treatment Response Procedure Tolerated Well -Debridement - Subq, 1st 20sq cm Yes 1. L foot plantar -Time 11:24 -Correct Patient Yes -Correct Side, Site, Position Yes -Correct Procedure Yes -Procedure Performed Yes -Type of Procedure Debridement -Clinical Debridement Subcutaneous -Tissue Removed Subcutaneous -Post Debridement (cm) - Length 0.6 -Post Debridement (cm) - Width 1.5 -Post Debridement (cm) - Depth 0.1 -Total Square (Post) (cm) 0.90 -Area of Debridement (cm) - Length 0.6 -Area of Debridement (cm) - Width 1.5 -Total Square (Area) (cm) 0.90 -Tunneling No -Undermining/Tunneling No -Circular Undermining No -Wound/Ulcer Outcome Not Healed -Ulcer Cleansing Rinsed/ Irrigated with Saline -Foul Odor after Cleansing No -Bioengineered Tissue Yes -Type of Bioengineered Tissue Epifix 18mm Disc -Expiration Date 07/06/25 -Product Lot Number [id number] -Percent Used 100 -Lot number of Saline Used [id number] -Bleeding Controlled with Pressure -Offloading Yes -Type of Offloading Camwalker -Treatment Response Procedure Tolerated Well -Debridement - Subq, 1st 20sq cm No -Apply Skin Sub - 1st 25 sq cm - Feet 1 -Epifix 18mm Disc 3 Query Text:18mm = 3 [See Physician Procedure note for Specifics] Pain Scale: 0-10 Numeric [Pain] -Is Patient Pain Free? Yes Musculoskeletal: No Tenderness to Palpation of Joints or Extremities, Muscle Wasting, - - No bogginess or fluctuance on palpation left foot Neurological: - - Lack of normal epicritic sensation light touch is consistent with neuropathy status Psych/Mental Status: Normal Affect, Appropriate Debridement Note Post-Debridement Measurements/Treatment WC - Nurse 2 - General Ulcer CM Notes Start: 10/11/20 09:46 Freq: Status: Active Protocol: Activity Type Activity Date Activity User E-Sign Co-Sign Detail Recorded Client Recorded Date Recorded By Document 10/11/20 12:40 PL [id number] 10/11/20 12:43 PL Document 10/18/20 10:06 JF [id number] 10/18/20 10:15 JF Document 10/25/20 11:22 JF [id number] 10/25/20 11:32 JF 10/11/20 10/18/20 10/25/20 12:40 10:06 11:22 Wound Center Nurse 2 2-left dorsal foot -Time 10:09 10:12 11:23 -Correct Patient Yes Yes Yes -Correct Side, Site, Position Yes Yes Yes -Correct Procedure Yes Yes Yes -Procedure Performed Yes Yes Yes -Type of Procedure Debridement Debridement Debridement -Clinical Debridement Subcutaneous Subcutaneous Subcutaneous -Tissue Removed Subcutaneous Subcutaneous Subcutaneous -Post Debridement (cm) - Length 5.1 4.9 5 -Post Debridement (cm) - Width 1.0 1.7 2.1 -Post Debridement (cm) - Depth 0.2 0.1 0.2 -Total Square (Post) (cm) 5.10 8.33 10.5 -Area of Debridement (cm) - Length 5.1 4.9 5 -Area of Debridement (cm) - Width 1.0 1.7 2.1 -Total Square (Area) (cm) 5.10 8.33 10.5 -Tunneling No No No -Undermining/Tunneling No No No -Circular Undermining No No No -Wound/Ulcer Outcome Not Healed Not Healed Not Healed -Ulcer Cleansing Rinsed/ Rinsed/ Rinsed/ Irrigated with Irrigated with Irrigated with Saline Saline Saline -Foul Odor after Cleansing No No No -Bioengineered Tissue Yes No No -Type of Bioengineered Tissue Epifix -Expiration Date 05/06/25 -Product Lot Number [id number] -Percent Used 100 -Lot number of Saline Used [id number] -Bleeding Controlled with Pressure Pressure Pressure -Offloading Yes Yes -Type of Offloading Camwalker Camwalker -Treatment Response Procedure Procedure Procedure Tolerated Well Tolerated Well Tolerated Well -Debridement - Subq, 1st 20sq cm No Yes Yes -Apply Skin Sub - 1st 25 sq cm - Feet 1 -Epifix (per sq cm) 4 1. L foot plantar -Time 10:13 11:24 -Correct Patient Yes Yes -Correct Side, Site, Position Yes Yes -Correct Procedure Yes Yes -Procedure Performed Yes Yes -Type of Procedure Debridement Debridement -Clinical Debridement Subcutaneous Subcutaneous -Tissue Removed Subcutaneous Subcutaneous -Post Debridement (cm) - Length 1.5 0.6 -Post Debridement (cm) - Width 1 1.5 -Post Debridement (cm) - Depth 0.2 0.1 -Total Square (Post) (cm) 1.5 0.90 -Area of Debridement (cm) - Length 1.5 0.6 -Area of Debridement (cm) - Width 1.0 1.5 -Total Square (Area) (cm) 1.50 0.90 -Tunneling No No -Undermining/Tunneling No No -Circular Undermining No No -Wound/Ulcer Outcome Healed- Not Healed Not Healed Epithelialized -Ulcer Cleansing Rinsed/ Rinsed/ Irrigated with Irrigated with Saline Saline -Foul Odor after Cleansing No No -Bioengineered Tissue Yes Yes -Type of Bioengineered Tissue Epifix Epifix 18mm Disc -Expiration Date 06/06/25 07/06/25 -Product Lot Number [id number] -Percent Used 100 100 -Lot number of Saline Used [id number] -Bleeding Controlled with Pressure Pressure -Offloading Yes Yes -Type of Offloading Camwalker Camwalker -Treatment Response Procedure Procedure Tolerated Well Tolerated Well -Debridement - Subq, 1st 20sq cm No No -Apply Skin Sub - 1st 25 sq cm - Feet 1 1 -Epifix (per sq cm) 0 -Epifix 18mm Disc 3 3 Query Text:18mm = 3 Pain Scale: 0-10 Numeric Is Patient Pain Free? Yes Yes Yes - Nurse 3 - General Ulcer D/C NN Start: 10/11/20 09:46 Freq: Status: Active Protocol: Activity Type Activity Date Activity User E-Sign Co-Sign Detail Recorded Client Recorded Date Recorded By Document 10/11/20 10:23 WA [id number] 10/11/20 10:25 WA 10/11/20 10:23 Wound Care Nurse 3 2-left dorsal foot -Other Dressing hydrogel for santyl replacement -Primary Dressing Covered/Secured with Dry Gauze, Secured with Tape 1. L foot plantar -Primary Dressing Covered/Secured with Dry Gauze, Secured with Tape Left -Compression Wrap Neo Wrap WC - Visit Discharge Discharge Condition Stable Ambulatory Status Ambulatory Transportation Private Auto Medication Reconcilliation completed & No provided to patient/care provider Clinical Summary of Care Provided Yes Notes: keep dry Wound debrided: plantar forefoot Laterality: Left Wound Grade/Stage: grade 3 Type of Debridement: Excisional debridement Anesthesia Used: 5% Lidocaine Gel Depth: in the subcutaneous layer Percentage of wound debrided: 100 Instrument Used: #15 blade Tissue Removed: fibrous, devitalized subcutaneous, biofilm, slough Severity: Fat Layer Exposed Amount of bleeding with debridement: Mild Bleeding Controlled with: Pressure Patient tolerated procedure well - Additional Wound Wound debrided: dorsal foot Laterality: Left Wound Grade/Stage: grade 1 Type of Debridement: Excisional debridement Anesthesia Used: 5% Lidocaine Gel Depth: in the subcutaneous layer Percentage of wound debrided: 100 Instrument Used: #15 blade Tissue Removed: fibrous, devitalized subcutaneous, biofilm, slough, eschar (cross hatched) Severity: Fat Layer Exposed Amount of bleeding with debridement: Mild Bleeding Controlled with: Pressure Patient tolerated procedure: Patient tolerated procedure well Assessment/Plan Active Problems (Last Updated 07/09/20 @ 22:[address] Zachary Jean MD) Osteomyelitis (Acute) Ulcer of left foot with fat layer exposed (Chronic) Delayed wound healing (Chronic) Tinea unguium (Chronic) Other hereditary and idiopathic neuropathies (Chronic) ESRD (end stage renal disease) (Chronic) Renal transplant recipient (Chronic) Diabetes (Chronic) e11.42 Assessment: Left foot ulcer plantar, no infection. Eschar dorsal left foot/now ulcer with fat layer exposed, no infection. Diabetes with neuropathy. Renal disease. Small vessel disease. Delayed healing. onychomycosis versus onychauxis. neuropathy. amputation toe, left second Plan: I reviewed and discussed his case. He was reassured no local signs of infection are noted locally or systemically. To monitor closely. Debridement was performed today to the dorsal foot. To continue Santyl to proximal dorsal foot ulcer site. Plantar foot ulcer site was also debrided and reduced depth and improvement in granulation tissue is noted. I recommend application of advanced wound healing product, epifix. This applied today according standard protocol and was secured with a wound veil and Steri-Strips after verbal consent was obtained. He tolerated this well. He was advised to keep this clean, dry, and intact until follow-up next week. He was reassured no signs of local infection are noted. To continue strict offloading with wheelchair use and surgical shoe with offloading liners. I recommend application of advanced wound healing product, epifix next week again for limb salvage. The benefits, application course, and anticipated healing time and management were discussed. His last blood flow studies were reviewed from 07-26-2020 with ABIs and ankle waveforms. There are diminished toe pressures which are consistent with small vessel disease on the left lower extremity. To follow-up with vascular surgery as previously advised. He had additional vascular testing completed and is scheduled to follow-up with Dr. Barriga next Friday. He was encouraged to proceed forward. I recommend that he continues with nutritional supplementation Gaudencio to optimize healing. His toenails were debrided with a nail nipper in length and thickness to reduce pressure to avoid ulcers and to reduce fungal load. This was performed to the right foot toes 1, 2, 3, 4, 5 and left foot toes 1, 3, 4, 5. He tolerated this well and there was no microbleed. To return to the foot and ankle center in a couple of months for risk assessment and continued palliative care. Performance of this procedure by a nonmedical professional puts him at risk for limb loss and continued infection. A risk assessment will also be updated at that time. He was advised to return to the wound healing clinic in 1 week or call sooner if he has any questions or concerns.
[2020-11-01 09:35] VITALS: BP 126/69; PULSE 78; TEMP 35.8; BMI 27.0
[2020-11-01 10:13] VITALS: BP 126/70
--- NOTE | 2020-11-01 23:00 | PCM.WC.PN ---
(1) Osteomyelitis Status: Acute Code(s): M86.9 - Osteomyelitis, unspecified (2) Ulcer of left foot with fat layer exposed Status: Chronic Code(s): L97.522 - Non-pressure chronic ulcer of other part of left foot with fat layer exposed (3) Delayed wound healing Status: Chronic Code(s): T14.8XXD - Other injury of unspecified body region, subsequent encounter (4) ESRD (end stage renal disease) Status: Chronic Code(s): N18.6 - End stage renal disease (5) Renal transplant recipient Status: Chronic Code(s): Z94.0 - Kidney transplant status (6) Diabetes Status: Chronic Code(s): E11.9 - Type 2 diabetes mellitus without complications Comment: e11.42 Type of Wound Date of Service: 11/01/20 Chief Complaint: Left foot ulcer History of Wound: This 55-year-old male sustained a foot infection in which he went for emergent surgery on 07-21-2020 at [facility] with Dr. Valdez. He subsequently has been treated with a comprehensive wound healing plan including offloading, serial debridement, and ocean transportation intermediary course of IV antibiotics under the management of infectious disease. He uses a surgical shoe and put weight on his heel to offload and also uses a wheelchair at times. He also uses a walker. He had a plantar epifix applied last week and he has kept this clean, dry, and intact. Home health has been helping him with dorsal foot Santyl applications every other day, and this is going well. He is with his sister today. He denies fever, chill, nausea, vomiting. He also has peripheral vascular disease and diabetes. Progress of Wound: Improving - Physical Exam Vital Signs Temp Pulse Resp BP 96.5 F L 78 18 126/70 H 11/01/20 09:35 11/01/20 09:35 10/25/20 11:06 11/01/20 10:13 General: Alert, Oriented x3, Cooperative, No apparent distress HEENT: Atraumatic Extremities: No cyanosis, Capillary Refill Less than 3 Seconds, No Calf Tenderness, Diminished Peripheral Pulses, Edema Skin: Ulcer/ Wound - No purulence, erythema, streaking, odor, infection. Adjacent skin is hairless and atrophic. No necrosis or eschar is noted today. Wound Measurements and Assessment WC - Nurse 1 - General Ulcer Measurement Start: 10/11/20 09:46 Freq: Status: Active Protocol: Activity Type Activity Date Activity User E-Sign Co-Sign Detail Recorded Client Recorded Date Recorded By Document 11/01/20 09:35 MAXX [id number] 11/01/20 09:43 KR 11/01/20 09:35 Wound Center Nurse 1 [Ulcer Assessment] 2-left dorsal foot -Current Size (cm) - Length 5 -Current Size (cm) - Width 2.5 -Current Size (cm) - Depth 0.1 -Total Square Cm 12.5 -Exudate Amt Medium -Exudate Type Serosanguineous -Wound Margin Distinct, Outline Attached -Granulation Amt Medium (34-66%) -Granulation Quality Red -Necrosis Amt Medium (34-66%) -Necrotic Tissue Type Adherent Slough -Texture (Nilda-wound Skin Appearance) Assessed, Scarring -Moisture (Nilda-wound Skin Appearance No Abnormality, ) Assessed -Temperature (Nilda-wound Skin No Abnormality Appearance) (Pt Warm) -Tenderness on Palpation (Nilda-wound No Skin Appearance) -Ulcer Cleansing Rinsed/ Irrigated with Saline -Foul Odor after Cleansing No -Anesthetic Used 4% Lidocaine Solution 1. L foot plantar -Current Size (cm) - Length 1.7 -Current Size (cm) - Width 1.6 -Current Size (cm) - Depth 0.1 -Total Square Cm 2.72 -Exudate Amt None Present -Wound Margin Distinct, Outline Attached -Necrosis Amt Medium (34-66%) -Necrotic Tissue Type Adherent Slough -Texture (Nilda-wound Skin Appearance) Assessed, Scarring -Moisture (Nilda-wound Skin Appearance No Abnormality, ) Assessed -Color (Nilda-wound Skin Appearance) No Abnormality, Assessed -Temperature (Nilda-wound Skin No Abnormality Appearance) (Pt Warm) -Tenderness on Palpation (Nilda-wound No Skin Appearance) -Ulcer Cleansing Rinsed/ Irrigated with Saline -Foul Odor after Cleansing No -Anesthetic Used 4% Lidocaine Solution - Nurse 2 - General Ulcer CM Notes Start: 10/11/20 09:46 Freq: Status: Active Protocol: Activity Type Activity Date Activity User E-Sign Co-Sign Detail Recorded Client Recorded Date Recorded By Document 11/01/20 09:59 ERNESTINE [id number] 11/01/20 10:14 ERNESTINE 01/27/21 09:59 Wound Center Nurse 2 [Procedure/Treatment] 2-left dorsal foot -Time 10:00 -Correct Patient Yes -Correct Side, Site, Position Yes -Correct Procedure Yes -Procedure Performed Yes -Type of Procedure Debridement -Clinical Debridement Subcutaneous -Tissue Removed Subcutaneous -Post Debridement (cm) - Length 5 -Post Debridement (cm) - Width 2.6 -Post Debridement (cm) - Depth 0.1 -Total Square (Post) (cm) 13.0 -Area of Debridement (cm) - Length 5 -Area of Debridement (cm) - Width 2.6 -Total Square (Area) (cm) 13.0 -Tunneling No -Undermining/Tunneling No -Circular Undermining No -Wound/Ulcer Outcome Not Healed -Ulcer Cleansing Rinsed/ Irrigated with Saline -Foul Odor after Cleansing No -Bioengineered Tissue No -Bleeding Controlled with Pressure -Offloading Yes -Type of Offloading Camwalker -Treatment Response Procedure Tolerated Well -Debridement - Subq, 1st 20sq cm Yes -Debridement - Bone, 1st 20sq cm No 1. L foot plantar -Time 10:12 -Correct Patient Yes -Correct Side, Site, Position Yes -Correct Procedure Yes -Procedure Performed Yes -Type of Procedure Debridement -Clinical Debridement Subcutaneous -Tissue Removed Subcutaneous -Post Debridement (cm) - Length 1.8 -Post Debridement (cm) - Width 1.6 -Post Debridement (cm) - Depth 0.1 -Total Square (Post) (cm) 2.88 -Area of Debridement (cm) - Length 1.8 -Area of Debridement (cm) - Width 1.6 -Total Square (Area) (cm) 2.88 -Tunneling No -Undermining/Tunneling No -Circular Undermining No -Wound/Ulcer Outcome Not Healed -Ulcer Cleansing Rinsed/ Irrigated with Saline -Foul Odor after Cleansing No -Bioengineered Tissue Yes -Type of Bioengineered Tissue Epifix -Expiration Date 06/06/25 -Product Lot Number [id number] -Percent Used 100 -Lot number of Saline Used [id number] -Bleeding Controlled with Pressure -Offloading Yes -Type of Offloading Surgical Shoe -Treatment Response Procedure Tolerated Well -Debridement - Subq, 1st 20sq cm No -Apply Skin Sub - 1st 25 sq cm - Feet 1 -Epifix (per sq cm) 4 [See Physician Procedure note for Specifics] Pain Scale: 0-10 Numeric [Pain] -Is Patient Pain Free? Yes WC - Nurse 3 - General Ulcer D/C NN Start: 10/11/20 09:46 Freq: Status: Active Protocol: Activity Type Activity Date Activity User E-Sign Co-Sign Detail Recorded Client Recorded Date Recorded By Document 11/01/20 10:13 DL [id number] 11/01/20 10:15 DL 11/01/20 10:13 Wound Care Nurse 3 [Wound Dressing] 2-left dorsal foot -Other Dressing santyl -Primary Dressing Covered/Secured Dry Gauze,Dry with Gauze & Roll Gauze,Secured with Tape 1. L foot plantar -Primary Dressing Covered/Secured Dry Gauze,Dry with Gauze & Roll Gauze,Secured with Tape [Compression Applied] Left -Other neo [Post Procedure Tolerated] -Treatment Response Procedure Tolerated Well Vital Signs [Blood Pressure] -Blood Pressure (90/60-120/80) 126/70 H -Blood Pressure Mean (mm Hg) 88 -Source Monitor -Position Semi-Fowlers -Blood Pressure Location Left Arm WC - Visit Discharge [Visit Discharge Information] -Discharge Condition Stable -Ambulatory Status Ambulatory -Transportation Private Auto -Medication Reconcilliation completed No & provided to patient/care provider -Clinical Summary of Care Provided Yes Musculoskeletal: No Tenderness to Palpation of Joints or Extremities, Muscle Wasting, - - Second toe amputation left. No bogginess or fluctuance. Compartments are soft Neurological: - - Lack of normal epicritic sensation to light touch Psych/Mental Status: Normal Affect, Appropriate Debridement Note Post-Debridement Measurements/Treatment WC - Nurse 2 - General Ulcer CM Notes Start: 10/11/20 09:46 Freq: Status: Active Protocol: Activity Type Activity Date Activity User E-Sign Co-Sign Detail Recorded Client Recorded Date Recorded By Document 10/11/20 12:40 PL [id number] 10/11/20 12:43 PL Document 10/18/20 10:06 JF [email or web address] 10/18/20 10:15 JF Document 10/25/20 11:22 JF [id number] 10/25/20 11:32 JF Document 11/01/20 09:59 JF [id number] 11/01/20 10:14 JF 10/11/20 10/18/20 10/25/20 12:40 10:06 11:22 Wound Center Nurse 2 2-left dorsal foot -Time 10:09 10:12 11:23 -Correct Patient Yes Yes Yes -Correct Side, Site, Position Yes Yes Yes -Correct Procedure Yes Yes Yes -Procedure Performed Yes Yes Yes -Type of Procedure Debridement Debridement Debridement -Clinical Debridement Subcutaneous Subcutaneous Subcutaneous -Tissue Removed Subcutaneous Subcutaneous Subcutaneous -Post Debridement (cm) - Length 5.1 4.9 5 -Post Debridement (cm) - Width 1.0 1.7 2.1 -Post Debridement (cm) - Depth 0.2 0.1 0.2 -Total Square (Post) (cm) 5.10 8.33 10.5 -Area of Debridement (cm) - Length 5.1 4.9 5 -Area of Debridement (cm) - Width 1.0 1.7 2.1 -Total Square (Area) (cm) 5.10 8.33 10.5 -Tunneling No No No -Undermining/Tunneling No No No -Circular Undermining No No No -Wound/Ulcer Outcome Not Healed Not Healed Not Healed -Ulcer Cleansing Rinsed/ Rinsed/ Rinsed/ Irrigated with Irrigated with Irrigated with Saline Saline Saline -Foul Odor after Cleansing No No No -Bioengineered Tissue Yes No No -Type of Bioengineered Tissue Epifix -Expiration Date 05/06/25 -Product Lot Number [id number] -Percent Used 100 -Lot number of Saline Used [id number] -Bleeding Controlled with Pressure Pressure Pressure -Offloading Yes Yes -Type of Offloading Camwalker Camwalker -Treatment Response Procedure Procedure Procedure Tolerated Well Tolerated Well Tolerated Well -Debridement - Subq, 1st 20sq cm No Yes Yes -Debridement - Bone, 1st 20sq cm -Apply Skin Sub - 1st 25 sq cm - Feet 1 -Epifix (per sq cm) 4 1. L foot plantar -Time 10:13 11:24 -Correct Patient Yes Yes -Correct Side, Site, Position Yes Yes -Correct Procedure Yes Yes -Procedure Performed Yes Yes -Type of Procedure Debridement Debridement -Clinical Debridement Subcutaneous Subcutaneous -Tissue Removed Subcutaneous Subcutaneous -Post Debridement (cm) - Length 1.5 0.6 -Post Debridement (cm) - Width 1 1.5 -Post Debridement (cm) - Depth 0.2 0.1 -Total Square (Post) (cm) 1.5 0.90 -Area of Debridement (cm) - Length 1.5 0.6 -Area of Debridement (cm) - Width 1.0 1.5 -Total Square (Area) (cm) 1.50 0.90 -Tunneling No No -Undermining/Tunneling No No -Circular Undermining No No -Wound/Ulcer Outcome Healed- Not Healed Not Healed Epithelialized -Ulcer Cleansing Rinsed/ Rinsed/ Irrigated with Irrigated with Saline Saline -Foul Odor after Cleansing No No -Bioengineered Tissue Yes Yes -Type of Bioengineered Tissue Epifix Epifix 18mm Disc -Expiration Date 06/06/25 07/06/25 -Product Lot Number [id number] -Percent Used 100 100 -Lot number of Saline Used [id number] -Bleeding Controlled with Pressure Pressure -Offloading Yes Yes -Type of Offloading Camwalker Camwalker -Treatment Response Procedure Procedure Tolerated Well Tolerated Well -Debridement - Subq, 1st 20sq cm No No -Apply Skin Sub - 1st 25 sq cm - Feet 1 1 -Epifix (per sq cm) 0 -Epifix 18mm Disc 3 3 Pain Scale: 0-10 Numeric Is Patient Pain Free? Yes Yes Yes 11/01/20 09:59 Wound Center Nurse 2 2-left dorsal foot -Time 10:00 -Correct Patient Yes -Correct Side, Site, Position Yes -Correct Procedure Yes -Procedure Performed Yes -Type of Procedure Debridement -Clinical Debridement Subcutaneous -Tissue Removed Subcutaneous -Post Debridement (cm) - Length 5 -Post Debridement (cm) - Width 2.6 -Post Debridement (cm) - Depth 0.1 -Total Square (Post) (cm) 13.0 -Area of Debridement (cm) - Length 5 -Area of Debridement (cm) - Width 2.6 -Total Square (Area) (cm) 13.0 -Tunneling No -Undermining/Tunneling No -Circular Undermining No -Wound/Ulcer Outcome Not Healed -Ulcer Cleansing Rinsed/ Irrigated with Saline -Foul Odor after Cleansing No -Bioengineered Tissue No -Type of Bioengineered Tissue -Expiration Date -Product Lot Number -Percent Used -Lot number of Saline Used -Bleeding Controlled with Pressure -Offloading Yes -Type of Offloading Camwalker -Treatment Response Procedure Tolerated Well -Debridement - Subq, 1st 20sq cm Yes -Debridement - Bone, 1st 20sq cm No -Apply Skin Sub - 1st 25 sq cm - Feet -Epifix (per sq cm) 1. L foot plantar -Time 10:12 -Correct Patient Yes -Correct Side, Site, Position Yes -Correct Procedure Yes -Procedure Performed Yes -Type of Procedure Debridement -Clinical Debridement Subcutaneous -Tissue Removed Subcutaneous -Post Debridement (cm) - Length 1.8 -Post Debridement (cm) - Width 1.6 -Post Debridement (cm) - Depth 0.1 -Total Square (Post) (cm) 2.88 -Area of Debridement (cm) - Length 1.8 -Area of Debridement (cm) - Width 1.6 -Total Square (Area) (cm) 2.88 -Tunneling No -Undermining/Tunneling No -Circular Undermining No -Wound/Ulcer Outcome Not Healed -Ulcer Cleansing Rinsed/ Irrigated with Saline -Foul Odor after Cleansing No -Bioengineered Tissue Yes -Type of Bioengineered Tissue Epifix -Expiration Date 06/06/25 -Product Lot Number [id number] -Percent Used 100 -Lot number of Saline Used [id number] -Bleeding Controlled with Pressure -Offloading Yes -Type of Offloading Surgical Shoe -Treatment Response Procedure Tolerated Well -Debridement - Subq, 1st 20sq cm No -Apply Skin Sub - 1st 25 sq cm - Feet 1 -Epifix (per sq cm) 4 -Epifix 18mm Disc Pain Scale: 0-10 Numeric Is Patient Pain Free? Yes WC - Nurse 3 - General Ulcer D/C NN Start: 10/11/20 09:46 Freq: Status: Active Protocol: Activity Type Activity Date Activity User E-Sign Co-Sign Detail Recorded Client Recorded Date Recorded By Document 10/11/20 10:23 MT [id number] 10/11/20 10:25 MT Document 10/25/20 11:51 DL [id number] 10/25/20 11:51 DL Document 11/01/20 10:13 DL [id number] 11/01/20 10:15 DL 10/11/20 10/25/20 11/01/20 10:23 11:51 10:13 Wound Care Nurse 3 2-left dorsal foot -Ulcer Cleansing Rinsed/ Irrigated with Saline -Foul Odor after Cleansing No -Primary Dressing Applied Enzymatic -Other Dressing hydrogel for santyl santyl replacement -Primary Dressing Covered/Secured with Dry Gauze, Dry Gauze & Dry Gauze,Dry Secured with Roll Gauze, Gauze & Roll Tape Secured with Gauze,Secured Tape with Tape 1. L foot plantar -Other Dressing epifix -Primary Dressing Covered/Secured with Dry Gauze, Dry Gauze & Dry Gauze,Dry Secured with Roll Gauze, Gauze & Roll Tape Secured with Gauze,Secured Tape with Tape -Other Covering neo Left -Compression Wrap Neo Wrap -Other neo Treatment Response Procedure Procedure Tolerated Well Tolerated Well Vital Signs Blood Pressure (90/60-120/80) 126/70 H Blood Pressure Mean (mm Hg) 88 Source Monitor Position Semi-Fowlers Blood Pressure Location Left Arm Pain Scale: 0-10 Numeric Is Patient Pain Free? Yes WC - Visit Discharge Discharge Condition Stable Stable Stable Ambulatory Status Ambulatory Ambulatory Ambulatory Transportation Private Auto Private Auto Private Auto Medication Reconcilliation completed & No No provided to patient/care provider Clinical Summary of Care Provided Yes Yes Notes: keep dry Wound debrided: plantar forefoot Laterality: Left Wound Grade/Stage: grade 3 Type of Debridement: Excisional debridement Anesthesia Used: 5% Lidocaine Gel Depth: in the subcutaneous layer Percentage of wound debrided: 100 Instrument Used: #15 blade Tissue Removed: fibrous, devitalized subcutaneous, biofilm, slough Severity: Fat Layer Exposed Amount of bleeding with debridement: Mild Bleeding Controlled with: Pressure Patient tolerated procedure well - Additional Wound Wound debrided: dorsal foot Laterality: Left Wound Grade/Stage: grade 1 Type of Debridement: Excisional debridement Anesthesia Used: 5% Lidocaine Gel Depth: in the subcutaneous layer Percentage of wound debrided: 100 Instrument Used: #15 blade Tissue Removed: fibrous, devitalized subcutaneous, biofilm, slough Severity: Fat Layer Exposed Amount of bleeding with debridement: Mild Bleeding Controlled with: Pressure Patient tolerated procedure: Patient tolerated procedure well Assessment/Plan Active Problems (Last Updated 07/09/20 @ 22:[address] Zachary Jean MD) Osteomyelitis (Acute) Ulcer of left foot with fat layer exposed (Chronic) Delayed wound healing (Chronic) Tinea unguium (Chronic) Other hereditary and idiopathic neuropathies (Chronic) ESRD (end stage renal disease) (Chronic) Renal transplant recipient (Chronic) Diabetes (Chronic) e11.42 Assessment: Left foot ulcer plantar, no infection. Eschar (reduced) dorsal left foot/now ulcer with fat layer exposed, no infection. Diabetes with neuropathy. Renal disease. Small vessel disease. Delayed healing. onychomycosis versus onychauxis. neuropathy. amputation toe, left second Plan: I reviewed and discussed his case. He was reassured no local signs of infection are noted locally or systemically. To monitor closely. Debridement was performed today to the dorsal foot. To continue Santyl to proximal dorsal foot ulcer site. Plantar foot ulcer site was also debrided and reduced depth and improvement in granulation tissue is noted. I recommend application of advanced wound healing product, epifix. This applied today according standard protocol and was secured with a wound veil and Steri-Strips after verbal consent was obtained. He tolerated this well. He was advised to keep this clean, dry, and intact until follow-up next week. He was reassured no signs of local infection are noted. To continue strict offloading with wheelchair use and surgical shoe with offloading liners. I recommend application of advanced wound healing product, epifix next week again for limb salvage. The benefits, application course, and anticipated healing time and management were discussed. His last blood flow studies were reviewed from 07-26-2020 with ABIs and ankle waveforms. There are diminished toe pressures which are consistent with small vessel disease on the left lower extremity. To follow-up with vascular surgery as previously advised. He had additional vascular testing completed and is scheduled to follow-up with Dr. Barriga next Friday. He was encouraged to proceed forward. I recommend that he continues with nutritional supplementation Gaudencio to optimize healing. He was advised to return to the wound healing clinic in 1 week or call sooner if he has any questions or concerns.
== END 2020-11-05 23:59 ==
LOC: WC 09:15
PROVIDERS: PCP Family Medicine; Referring Provider Podiatrist; Visit Provider Podiatrist
DX: E11.621 Type 2 diabetes mellitus with foot ulcer (principal); L97.522 Non-pressure chronic ulcer of other part of left foot with fat layer exposed; N18.6 End stage renal disease; E11.51 Type 2 diabetes mellitus with diabetic peripheral angiopathy without gangrene; E11.40 Type 2 diabetes mellitus with diabetic neuropathy, unspecified; E11.22 Type 2 diabetes mellitus with diabetic chronic kidney disease; Z94.0 Kidney transplant status; B35.1 Tinea unguium
CPT/HCPCS: 11042; 15275; Q4186

== ENCOUNTER 2020-11-29 10:30 | Outpatient (RCR) | payer MEDICARE, MEDICAID, SELFPAY ==
[2020-11-06 00:31] VITALS: BP 126/70; PULSE 78; RESP 18; TEMP 35.8
[2020-11-08 09:38] VITALS: BP 128/64; PULSE 73; RESP 18; TEMP 36.3; BMI 27.0
--- NOTE | 2020-11-08 11:47 | PCM.WC.PN ---
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 Valdez. He subsequently has been treated with a comprehensive wound healing plan including offloading, serial debridement, and long-term course of IV antibiotics under the management of infectious disease. He uses a surgical shoe and put weight on his heel to offload and also uses a wheelchair at times. He also uses a walker. He had a plantar epifix applied last week and he has kept this clean, dry, and intact. Home health has been helping him with dorsal foot Santyl applications every other day, and this is going well. He is with his sister today. He denies fever, chill, nausea, vomiting. He also has peripheral vascular disease and diabetes. Progress of Wound: Improving - Physical Exam Vital Signs Temp Pulse Resp BP 97.3 F L 73 18 128/64 H 11/08/20 09:38 11/08/20 09:38 11/08/20 09:38 11/08/20 09:38 General: Alert, Oriented x3, Cooperative, No apparent distress Extremities: No cyanosis, No edema, Capillary Refill Less than 3 Seconds, No Calf Tenderness, Diminished Peripheral Pulses, - - Second toe amputation Skin: Ulcer/ Wound - Peripheral epithelialization is noted. The plantar ulcer site is very superficial. The dorsal ulcer site has increased granulation tissue and is dry in appearance. The adjacent skin is hairless and atrophic., - - No purulence, erythema, streaking, odor, infection or deep tissue exposure Wound Measurements and Assessment WC - Nurse 1 - General Ulcer Measurement Start: 11/08/20 09:38 Freq: Status: Active Protocol: Activity Type Activity Date Activity User E-Sign Co-Sign Detail Recorded Client Recorded Date Recorded By Document 11/08/20 09:38 RB [id number] 11/08/20 09:42 RB 11/08/20 09:38 Wound Center Nurse 1 [Ulcer Assessment] 2-left dorsal foot -Combined with other wound No -Current Size (cm) - Length 5.5 -Current Size (cm) - Width 2.5 -Current Size (cm) - Depth 0.1 -Total Square Cm 13.75 -Tunneling No -Undermining/Tunneling No -Circular Undermining No -Exudate Amt None Present -Wound Margin Flat & Intact -Granulation Amt Medium (34-66%) -Granulation Quality [place] -Slough/Fibrin Yes -Necrosis Amt Small (1-33%) -Necrotic Tissue Type Adherent Slough -Structure Exposed N/A -Texture (Nilda-wound Skin Appearance) Scarring -Moisture (Nilda-wound Skin Appearance Assessed ) -Color (Nilda-wound Skin Appearance) Assessed -Temperature (Nilda-wound Skin No Abnormality Appearance) (Pt Warm) -Ulcer Cleansing Wound Cleanser -Foul Odor after Cleansing No -Anesthetic Used 4% Lidocaine Solution 1. L foot plantar -Combined with other wound No -Current Size (cm) - Length 0.1 -Current Size (cm) - Width 0.1 -Current Size (cm) - Depth 0.1 -Total Square Cm 0.01 -Tunneling No -Undermining/Tunneling No -Circular Undermining No -Exudate Amt None Present -Wound Margin Flat & Intact -Granulation Amt Small (1-33%) -Granulation Quality [place] -Slough/Fibrin Yes -Necrosis Amt Large (67-100%) -Necrotic Tissue Type Adherent Slough -Structure Exposed N/A -Texture (Nilda-wound Skin Appearance) Assessed, Scarring -Moisture (Nilda-wound Skin Appearance Assessed ) -Color (Nilda-wound Skin Appearance) Assessed -Temperature (Nilda-wound Skin No Abnormality Appearance) (Pt Warm) -Tenderness on Palpation (Nilda-wound No Skin Appearance) -Ulcer Cleansing Wound Cleanser -Foul Odor after Cleansing No -Anesthetic Used 4% Lidocaine Solution WC - Nurse 2 - General Ulcer CM Notes Start: 11/08/20 09:38 Freq: Status: Active Protocol: Activity Type Activity Date Activity User E-Sign Co-Sign Detail Recorded Client Recorded Date Recorded By Document 11/08/20 10:03 ERNESTINE [id number] 11/08/20 10:21 ERNESTINE 11/08/20 10:03 Wound Center Nurse 2 [Procedure/Treatment] 2-left dorsal foot -Time 10:03 -Correct Patient Yes -Correct Side, Site, Position Yes -Correct Procedure Yes -Procedure Performed Yes -Type of Procedure Debridement -Clinical Debridement Subcutaneous -Tissue Removed Subcutaneous -Post Debridement (cm) - Length 5.5 -Post Debridement (cm) - Width 2.5 -Post Debridement (cm) - Depth 0.1 -Total Square (Post) (cm) 13.75 -Area of Debridement (cm) - Length 5.5 -Area of Debridement (cm) - Width 2.5 -Total Square (Area) (cm) 13.75 -Tunneling No -Undermining/Tunneling No -Circular Undermining No -Wound/Ulcer Outcome Not Healed -Ulcer Cleansing Rinsed/ Irrigated with Saline -Foul Odor after Cleansing No -Bioengineered Tissue Yes -Type of Bioengineered Tissue Epifix -Expiration Date 06/06/25 -Product Lot Number [id number] -Percent Used 100 -Lot number of Saline Used [id number] -Bleeding Controlled with Pressure -Offloading Yes -Type of Offloading Surgical Shoe -Treatment Response Procedure Tolerated Well -Debridement - Subq, 1st 20sq cm Yes -Apply Skin Sub - 1st 25 sq cm - Feet 1 -Epifix (per sq cm) 4 1. L foot plantar -Time 10:10 -Correct Patient Yes -Correct Side, Site, Position Yes -Correct Procedure Yes -Procedure Performed Yes -Type of Procedure Debridement -Clinical Debridement Subcutaneous -Tissue Removed Subcutaneous -Post Debridement (cm) - Length 0.3 -Post Debridement (cm) - Width 0.3 -Post Debridement (cm) - Depth 0.1 -Total Square (Post) (cm) 0.09 -Area of Debridement (cm) - Length 0.3 -Area of Debridement (cm) - Width 0.3 -Total Square (Area) (cm) 0.09 -Tunneling No -Undermining/Tunneling No -Circular Undermining No -Wound/Ulcer Outcome Not Healed -Ulcer Cleansing Rinsed/ Irrigated with Saline -Foul Odor after Cleansing No -Bioengineered Tissue Yes -Type of Bioengineered Tissue Epifix -Expiration Date 06/06/25 -Product Lot Number [id number] -Percent Used 100 -Lot number of Saline Used [id number] -Bleeding Controlled with Pressure -Offloading Yes -Type of Offloading Surgical Shoe -Treatment Response Procedure Tolerated Well -Debridement - Subq, 1st 20sq cm No -Epifix (per sq cm) 4 [See Physician Procedure note for Specifics] Pain Scale: 0-10 Numeric [Pain] -Is Patient Pain Free? Yes Musculoskeletal: Muscle Wasting Neurological: - - Lack of normal epicritic sensation light touch is consistent with neuropathy status Psych/Mental Status: Normal Affect, Appropriate Debridement Note Post-Debridement Measurements/Treatment WC - Nurse 2 - General Ulcer CM Notes Start: 11/08/20 09:38 Freq: Status: Active Protocol: Activity Type Activity Date Activity User E-Sign Co-Sign Detail Recorded Client Recorded Date Recorded By Document 11/08/20 10:03 ERNESTINE [id number] 11/08/20 10:21 ERNESTINE 11/08/20 10:03 Wound Center Nurse 2 2-left dorsal foot -Time 10:03 -Correct Patient Yes -Correct Side, Site, Position Yes -Correct Procedure Yes -Procedure Performed Yes -Type of Procedure Debridement -Clinical Debridement Subcutaneous -Tissue Removed Subcutaneous -Post Debridement (cm) - Length 5.5 -Post Debridement (cm) - Width 2.5 -Post Debridement (cm) - Depth 0.1 -Total Square (Post) (cm) 13.75 -Area of Debridement (cm) - Length 5.5 -Area of Debridement (cm) - Width 2.5 -Total Square (Area) (cm) 13.75 -Tunneling No -Undermining/Tunneling No -Circular Undermining No -Wound/Ulcer Outcome Not Healed -Ulcer Cleansing Rinsed/ Irrigated with Saline -Foul Odor after Cleansing No -Bioengineered Tissue Yes -Type of Bioengineered Tissue Epifix -Expiration Date 06/06/25 -Product Lot Number [id number] -Percent Used 100 -Lot number of Saline Used [id number] -Bleeding Controlled with Pressure -Offloading Yes -Type of Offloading Surgical Shoe -Treatment Response Procedure Tolerated Well -Debridement - Subq, 1st 20sq cm Yes -Apply Skin Sub - 1st 25 sq cm - Feet 1 -Epifix (per sq cm) 4 1. L foot plantar -Time 10:10 -Correct Patient Yes -Correct Side, Site, Position Yes -Correct Procedure Yes -Procedure Performed Yes -Type of Procedure Debridement -Clinical Debridement Subcutaneous -Tissue Removed Subcutaneous -Post Debridement (cm) - Length 0.3 -Post Debridement (cm) - Width 0.3 -Post Debridement (cm) - Depth 0.1 -Total Square (Post) (cm) 0.09 -Area of Debridement (cm) - Length 0.3 -Area of Debridement (cm) - Width 0.3 -Total Square (Area) (cm) 0.09 -Tunneling No -Undermining/Tunneling No -Circular Undermining No -Wound/Ulcer Outcome Not Healed -Ulcer Cleansing Rinsed/ Irrigated with Saline -Foul Odor after Cleansing No -Bioengineered Tissue Yes -Type of Bioengineered Tissue Epifix -Expiration Date 06/06/25 -Product Lot Number [id number] -Percent Used 100 -Lot number of Saline Used [id number] -Bleeding Controlled with Pressure -Offloading Yes -Type of Offloading Surgical Shoe -Treatment Response Procedure Tolerated Well -Debridement - Subq, 1st 20sq cm No -Epifix (per sq cm) 4 Pain Scale: 0-10 Numeric Is Patient Pain Free? Yes Wound debrided: plantar forefoot Laterality: Left Wound Grade/Stage: grade 3 Type of Debridement: Excisional debridement Anesthesia Used: 5% Lidocaine Gel Depth: in the subcutaneous layer Percentage of wound debrided: 100 Instrument Used: #15 blade Tissue Removed: fibrous, devitalized subcutaneous, biofilm, slough Severity: Fat Layer Exposed Amount of bleeding with debridement: Mild Bleeding Controlled with: Pressure Patient tolerated procedure well - Additional Wound Wound debrided: dorsal foot Laterality: Left Wound Grade/Stage: grade 1 Type of Debridement: Excisional debridement Anesthesia Used: 5% Lidocaine Gel Depth: in the subcutaneous layer Percentage of wound debrided: 100 Instrument Used: #15 blade Tissue Removed: fibrous, devitalized subcutaneous, biofilm, slough Severity: Fat Layer Exposed Amount of bleeding with debridement: Mild Bleeding Controlled with: Pressure Patient tolerated procedure: Patient tolerated procedure well Assessment/Plan Active Problems (Last Updated 07/09/20 @ 22:[address] 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 Eschar (reduced) dorsal left foot/now ulcer with fat layer exposed, no infection. Diabetes with neuropathy. Renal disease. Small vessel disease. Delayed healing. onychomycosis versus onychauxis. neuropathy. amputation toe, left second Plan: I reviewed and discussed his case. He was reassured no local signs of infection are noted locally or systemically. To monitor closely. Debridement was performed today to the dorsal foot. To continue Santyl to proximal dorsal foot ulcer site. Plantar foot ulcer site was also debrided and reduced depth and improvement in granulation tissue is noted. I recommend application of advanced wound healing product, epifix. This applied today according standard protocol and was secured with a wound veil and Steri-Strips after verbal consent was obtained. He tolerated this well. Additional hydrogel was applied to to reduce wound dryness. He was advised to keep this clean, dry, and intact until follow-up next week. He was reassured no signs of local infection are noted. To continue strict offloading with wheelchair use and surgical shoe with offloading liners. I recommend application of advanced wound healing product, epifix next week again for limb salvage. The benefits, application course, and anticipated healing time and management were discussed. His last blood flow studies were reviewed from 07-26-2020 with ABIs and ankle waveforms. There are diminished toe pressures which are consistent with small vessel disease on the left lower extremity. To follow-up with vascular surgery as previously advised. He had additional vascular testing completed and is scheduled to follow-up with Dr. Barriga next Friday. He was encouraged to proceed forward. I recommend that he continues with nutritional supplementation Gaudencio to optimize healing. He was advised to return to the wound healing clinic in 1 week or call sooner if he has any questions or concerns.
[2020-11-15 10:04] VITALS: BP 127/64; PULSE 76; RESP 18; TEMP 36.1; BMI 27.0
--- NOTE | 2020-11-15 21:52 | PCM.WC.PN ---
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 Valdez. 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 He uses a surgical shoe and put weight on his heel to offload and also uses a wheelchair at times. He also uses a walker. He had a plantar epifix applied last week and he has kept this clean, dry, and intact. He is with his twin sister today. He denies fever, chill, nausea, vomiting. He also has peripheral vascular disease and diabetes. Progress of Wound: Improving - Physical Exam Vital Signs Temp Pulse Resp BP 96.9 F L 76 18 127/64 H 11/15/20 10:04 11/15/20 10:04 11/15/20 10:04 11/15/20 10:04 General: Alert, Oriented x3, Cooperative, No apparent distress HEENT: Atraumatic Extremities: No cyanosis, No edema, Capillary Refill Less than 3 Seconds, No Calf Tenderness, Diminished Peripheral Pulses Skin: Ulcer/ Wound - No purulence, erythema, streaking, odor, infection. Full epithelialization is noted to the plantar ulcer site. The dorsal foot ulcer site has peripheral epithelialization and improvement in granulation tissue. His skin is atrophic and hairless Wound Measurements and Assessment WC - Nurse 1 - General Ulcer Measurement Start: 11/08/20 09:38 Freq: Status: Active Protocol: Activity Type Activity Date Activity User E-Sign Co-Sign Detail Recorded Client Recorded Date Recorded By Document 11/15/20 10:04 RB [id number] 11/15/20 10:08 RB 11/15/20 10:04 Wound Center Nurse 1 [Ulcer Assessment] 2-left dorsal foot -Combined with other wound No -Current Size (cm) - Length 5.5 -Current Size (cm) - Width 2.5 -Current Size (cm) - Depth 0.1 -Total Square Cm 13.75 -Tunneling No -Undermining/Tunneling No -Circular Undermining No -Exudate Amt Small -Exudate Type Serosanguineous -Wound Margin Flat & Intact -Granulation Amt Medium (34-66%) -Granulation Quality [place] -Slough/Fibrin Yes -Necrosis Amt Small (1-33%) -Necrotic Tissue Type Adherent Slough -Structure Exposed N/A -Texture (Nilda-wound Skin Appearance) Assessed, Excoriation -Moisture (Nilda-wound Skin Appearance Assessed ) -Color (Nilda-wound Skin Appearance) Assessed -Temperature (Nilda-wound Skin No Abnormality Appearance) (Pt Warm) -Tenderness on Palpation (Nilda-wound No Skin Appearance) -Ulcer Cleansing Wound Cleanser -Foul Odor after Cleansing No -Anesthetic Used 4% Lidocaine Solution 1. L foot plantar -Combined with other wound No -Current Size (cm) - Length 0.1 -Current Size (cm) - Width 0.1 -Current Size (cm) - Depth 0.1 -Total Square Cm 0.01 -Tunneling No -Undermining/Tunneling No -Circular Undermining No -Exudate Amt None Present -Exudate Type Serosanguineous -Wound Margin Flat & Intact -Granulation Amt Small (1-33%) -Granulation Quality [place] -Slough/Fibrin Yes -Necrosis Amt Large (67-100%) -Necrotic Tissue Type Adherent Slough -Structure Exposed N/A -Texture (Nilda-wound Skin Appearance) Assessed,Callus -Moisture (Nilda-wound Skin Appearance Assessed ) -Color (Nilda-wound Skin Appearance) Assessed -Temperature (Nilda-wound Skin No Abnormality Appearance) (Pt Warm) -Tenderness on Palpation (Nilda-wound No Skin Appearance) -Ulcer Cleansing Wound Cleanser -Foul Odor after Cleansing No -Anesthetic Used 4% Lidocaine Solution - Nurse 2 - General Ulcer CM Notes Start: 11/08/20 09:38 Freq: Status: Active Protocol: Activity Type Activity Date Activity User E-Sign Co-Sign Detail Recorded Client Recorded Date Recorded By Document 11/15/20 10:18 ERNESTINE [id number] 11/15/20 10:28 ERNESTINE 11/15/20 10:18 Wound Center Nurse 2 [Procedure/Treatment] 2-left dorsal foot -Time 10:18 -Correct Patient Yes -Correct Side, Site, Position Yes -Correct Procedure Yes -Procedure Performed Yes -Type of Procedure Debridement -Clinical Debridement Subcutaneous -Tissue Removed Subcutaneous -Post Debridement (cm) - Length 1 -Post Debridement (cm) - Width 2 -Post Debridement (cm) - Depth 0.1 -Total Square (Post) (cm) 2 -Area of Debridement (cm) - Length 1 -Area of Debridement (cm) - Width 2 -Total Square (Area) (cm) 2 -Tunneling No -Undermining/Tunneling No -Circular Undermining No -Wound/Ulcer Outcome Not Healed -Ulcer Cleansing Rinsed/ Irrigated with Saline -Foul Odor after Cleansing No -Bioengineered Tissue Yes -Type of Bioengineered Tissue Epifix 18mm Disc -Expiration Date 08/06/25 -Product Lot Number [id number] -Percent Used 100 -Lot number of Saline Used [id number] -Bleeding Controlled with Pressure -Offloading Yes -Type of Offloading Surgical Shoe -Treatment Response Procedure Tolerated Well -Debridement - Subq, 1st 20sq cm No -Apply Skin Sub - 1st 25 sq cm - Feet 1 -Epifix 18mm Disc 3 Query Text:18mm = 3 1. L foot plantar -Correct Patient No -Correct Side, Site, Position No -Correct Procedure No -Procedure Performed No -Post Debridement (cm) - Length 0 -Post Debridement (cm) - Width 0 -Post Debridement (cm) - Depth 0 -Total Square (Post) (cm) 0 -Area of Debridement (cm) - Length 0 -Area of Debridement (cm) - Width 0 -Total Square (Area) (cm) 0 -Wound/Ulcer Outcome Healed- Epithelialized [See Physician Procedure note for Specifics] Pain Scale: 0-10 Numeric [Pain] -Is Patient Pain Free? Yes - Nurse 3 - General Ulcer D/C NN Start: 11/08/20 09:38 Freq: Status: Active Protocol: Activity Type Activity Date Activity User E-Sign Co-Sign Detail Recorded Client Recorded Date Recorded By Document 11/15/20 10:28 ERNESTINE [id number] 11/15/20 10:29 ERNESTINE 11/15/20 10:28 Wound Care Nurse 3 [Wound Dressing] 2-left dorsal foot -Ulcer Cleansing Rinsed/ Irrigated with Saline -Foul Odor after Cleansing No -Primary Dressing Covered/Secured Dry Gauze & with Roll Gauze, Secured with Tape Pain Scale: 0-10 Numeric [Pain] -Is Patient Pain Free? 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 Neurological: - - Lack of normal epicritic sensation light touch is consistent with neuropathy status Psych/Mental Status: Normal Affect, Appropriate Debridement Note Post-Debridement Measurements/Treatment - Nurse 2 - General Ulcer CM Notes Start: 11/08/20 09:38 Freq: Status: Active Protocol: Activity Type Activity Date Activity User E-Sign Co-Sign Detail Recorded Client Recorded Date Recorded By Document 11/08/20 10:03 ERNESTINE [id number] 11/08/20 10:21 JF Document 11/15/20 10:18 ERNESTINE [id number] 11/15/20 10:28 11/08/20 11/15/20 10:03 10:18 Wound Center Nurse 2 2-left dorsal foot -Time 10:03 10:18 -Correct Patient Yes Yes -Correct Side, Site, Position Yes Yes -Correct Procedure Yes Yes -Procedure Performed Yes Yes -Type of Procedure Debridement Debridement -Clinical Debridement Subcutaneous Subcutaneous -Tissue Removed Subcutaneous Subcutaneous -Post Debridement (cm) - Length 5.5 1 -Post Debridement (cm) - Width 2.5 2 -Post Debridement (cm) - Depth 0.1 0.1 -Total Square (Post) (cm) 13.75 2 -Area of Debridement (cm) - Length 5.5 1 -Area of Debridement (cm) - Width 2.5 2 -Total Square (Area) (cm) 13.75 2 -Tunneling No No -Undermining/Tunneling No No -Circular Undermining No No -Wound/Ulcer Outcome Not Healed Not Healed -Ulcer Cleansing Rinsed/ Rinsed/ Irrigated with Irrigated with Saline Saline -Foul Odor after Cleansing No No -Bioengineered Tissue Yes Yes -Type of Bioengineered Tissue Epifix Epifix 18mm Disc -Expiration Date 06/06/25 08/06/25 -Product Lot Number [id number] -Percent Used 100 100 -Lot number of Saline Used [id number] -Bleeding Controlled with Pressure Pressure -Offloading Yes Yes -Type of Offloading Surgical Shoe Surgical Shoe -Treatment Response Procedure Procedure Tolerated Well Tolerated Well -Debridement - Subq, 1st 20sq cm Yes No -Apply Skin Sub - 1st 25 sq cm - Feet 1 1 -Epifix (per sq cm) 4 -Epifix 18mm Disc 3 Query Text:18mm = 3 1. L foot plantar -Time 10:10 -Correct Patient Yes No -Correct Side, Site, Position Yes No -Correct Procedure Yes No -Procedure Performed Yes No -Type of Procedure Debridement -Clinical Debridement Subcutaneous -Tissue Removed Subcutaneous -Post Debridement (cm) - Length 0.3 0 -Post Debridement (cm) - Width 0.3 0 -Post Debridement (cm) - Depth 0.1 0 -Total Square (Post) (cm) 0.09 0 -Area of Debridement (cm) - Length 0.3 0 -Area of Debridement (cm) - Width 0.3 0 -Total Square (Area) (cm) 0.09 0 -Tunneling No -Undermining/Tunneling No -Circular Undermining No -Wound/Ulcer Outcome Not Healed Healed- Epithelialized -Ulcer Cleansing Rinsed/ Irrigated with Saline -Foul Odor after Cleansing No -Bioengineered Tissue Yes -Type of Bioengineered Tissue Epifix -Expiration Date 06/06/25 -Product Lot Number [id number] -Percent Used 100 -Lot number of Saline Used [id number] -Bleeding Controlled with Pressure -Offloading Yes -Type of Offloading Surgical Shoe -Treatment Response Procedure Tolerated Well -Debridement - Subq, 1st 20sq cm No -Epifix (per sq cm) 4 Pain Scale: 0-10 Numeric Is Patient Pain Free? Yes Yes WC - Nurse 3 - General Ulcer D/C NN Start: 11/08/20 09:38 Freq: Status: Active Protocol: Activity Type Activity Date Activity User E-Sign Co-Sign Detail Recorded Client Recorded Date Recorded By Document 11/15/20 10:28 ERNESTINE [id number] 11/15/20 10:29 ERNESTINE 11/15/20 10:28 Wound Care Nurse 3 2-left dorsal foot -Ulcer Cleansing Rinsed/ Irrigated with Saline -Foul Odor after Cleansing No -Primary Dressing Covered/Secured with Dry Gauze & Roll Gauze, Secured with Tape Pain Scale: 0-10 Numeric Is Patient Pain Free? Yes WC - Visit Discharge Discharge Condition Stable Ambulatory Status Ambulatory Transportation Private Auto Accompanied by sister Medication Reconcilliation completed & Yes provided to patient/care provider Clinical Summary of Care Provided Yes Wound debrided: dorsal foot Laterality: Left Wound Grade/Stage: grade 1 Type of Debridement: Excisional debridement Anesthesia Used: 5% Lidocaine Gel Depth: in the subcutaneous layer Percentage of wound debrided: 100 Instrument Used: #15 blade Tissue Removed: fibrous, devitalized subcutaneous, biofilm, slough, minimal eschar Severity: Fat Layer Exposed Amount of bleeding with debridement: Mild Bleeding Controlled with: Pressure Patient tolerated procedure well Assessment/Plan Active Problems (Last Updated 07/09/20 @ 22:[address] Zachary Jean MD) Ulcer of left foot with fat layer exposed (Chronic) Delayed wound healing (Chronic) Peripheral vascular disease (Chronic) small vessel disease Type 2 diabetes mellitus with diabetic polyneuropathy (Chronic) Assessment: Left foot ulcer plantar, no infection - healed today. Eschar (reduced) dorsal left foot/now ulcer with fat layer exposed, no infection. Diabetes with neuropathy. Renal disease. Small vessel disease. Delayed healing. onychomycosis versus onychauxis. neuropathy. amputation toe, left second Plan: I reviewed and discussed his case. He was reassured no local signs of infection are noted locally or systemically. To monitor closely. Debridement was performed today to the dorsal foot. Plantar ulcer site has healed with full epithelialization. He was advised to allow the skin to continue to remodel by avoiding pressure on the site. I recommend application of advanced wound healing product, epifix to the dorsal foot. This applied today according standard protocol and was secured with a wound veil and Steri-Strips after verbal consent was obtained. He tolerated this well. Additional hydrogel was applied to to reduce wound dryness. He was advised to keep this clean, dry, and intact until follow-up next week. He was reassured no signs of local infection are noted. To continue strict offloading with wheelchair use and surgical shoe with offloading liners. I recommend application of advanced wound healing product, epifix next week again for limb salvage. The benefits, application course, and anticipated healing time and management were discussed. His last blood flow studies were reviewed from 07-26-2020 with ABIs and ankle waveforms. There are diminished toe pressures which are consistent with small vessel disease on the left lower extremity. To follow-up with vascular surgery as previously advised. He had additional vascular testing completed and is scheduled to follow-up with Dr. Barriga next Friday. He was encouraged to proceed forward. I recommend that he continues with nutritional supplementation Gaudencio to optimize healing. He was advised to return to the wound healing clinic in 1 week or call sooner if he has any questions or concerns.
[2020-11-22 09:58] VITALS: BP 156/77; PULSE 69; RESP 16; TEMP 36.1; BMI 27.0
--- NOTE | 2020-11-22 10:33 | PCM.WC.PN ---
(1) Ulcer of left foot with fat layer exposed Status: Resolved Code(s): L97.522 - Non-pressure chronic ulcer of other part of left foot with fat layer exposed (2) Peripheral vascular disease Status: Chronic Code(s): I73.9 - Peripheral vascular disease, unspecified Comment: small vessel disease (3) Ulcer of left foot with necrosis of bone Status: Resolved Code(s): L97.524 - Non-pressure chronic ulcer of other part of left foot with necrosis of bone (4) Type 2 diabetes mellitus with diabetic polyneuropathy Status: Chronic Code(s): E11.42 - Type 2 diabetes mellitus with diabetic polyneuropathy Type of Wound Date of Service: 11/22/20 Chief Complaint: Left foot ulcer History of Wound: This 55-year-old male sustained a foot infection in which he went for emergent surgery on 07-21-[address] at [facility] with Dr. Valdez. He subsequently has been treated with a comprehensive wound healing plan including offloading, serial debridement, and skilled nursing course of IV antibiotics under the management of infectious disease. He uses a surgical shoe and put weight on his heel to offload and also uses a wheelchair at times. He also uses a walker. His plantar ulcer site healed last week and he had an epi fix applied to the dorsal foot with hydrogel to keep it moist. He is with his sister today. He denies fever, chill, nausea, vomiting. He also has peripheral vascular disease and diabetes. He denies drainage during his last home health visit when they help with a secondary dressing. Progress of Wound: Healed - Physical Exam Vital Signs Temp Pulse Resp BP 97 F L 69 16 156/77 H 11/22/20 09:58 11/22/20 09:58 11/22/20 09:58 11/22/20 09:58 General: Alert, Oriented x3, Cooperative, No apparent distress HEENT: Atraumatic Extremities: No cyanosis, No edema, Capillary Refill Less than 3 Seconds, No Calf Tenderness, Diminished Peripheral Pulses, Edema - Very mild Skin: Ulcer/ Wound - Full epithelialization is noted to the dorsal and plantar foot. The skin is very atrophic, thin, and hairless. No purulence, erythema, streaking, odor, infection. Wound Measurements and Assessment WC - Nurse 1 - General Ulcer Measurement Start: 11/08/20 09:38 Freq: Status: Active Protocol: Activity Type Activity Date Activity User E-Sign Co-Sign Detail Recorded Client Recorded Date Recorded By Document 11/22/20 09:58 [facility] [id number] 11/22/20 10:02 [facility] 11/22/20 09:58 Wound Center Nurse 1 [Ulcer Assessment] 2-left dorsal foot -Combined with other wound No -Current Size (cm) - Length 0.1 -Current Size (cm) - Width 0.1 -Current Size (cm) - Depth 0.1 -Total Square Cm 0.01 -Photo Taken No -Epithelialization Large 67-100% -Tunneling No -Undermining/Tunneling No -Circular Undermining No -Exudate Amt None Present -Texture (Nilda-wound Skin Appearance) Assessed, Scarring -Moisture (Nilda-wound Skin Appearance Assessed ) -Color (Nilda-wound Skin Appearance) Assessed -Temperature (Nilda-wound Skin No Abnormality Appearance) (Pt Warm) -Tenderness on Palpation (Nilda-wound No Skin Appearance) -Ulcer Cleansing soapy water -Foul Odor after Cleansing No -Anesthetic Used 4% Lidocaine Solution HAZEL - Nurse 3 - General Ulcer D/C NN Start: 11/08/20 09:38 Freq: Status: Active Protocol: Activity Type Activity Date Activity User E-Sign Co-Sign Detail Recorded Client Recorded Date Recorded By Document 11/22/20 10:25 [facility] [id number] 11/22/20 10:26 [facility] 11/22/20 10:25 Wound Care Nurse 3 [Wound Dressing] -Ulcer Cleansing Rinsed/ Irrigated with Saline -Primary Dressing Covered/Secured Dry Gauze & with Roll Gauze, Secured with Tape,Other -Other Covering neo wrap to secure [Compression Applied] Left -Compression Wrap Neo Wrap [Post Procedure Tolerated] -Treatment Response Procedure Tolerated Well Pain Scale: 0-10 Numeric [Pain] -Is Patient Pain Free? Yes WC - Visit Discharge [Visit Discharge Information] -Discharge Condition Stable -Ambulatory Status Ambulatory -Transportation Private Auto -Accompanied by sister [Facility Notification] -Facility Type Home Health Musculoskeletal: No Tenderness to Palpation of Joints or Extremities, Muscle Wasting, - - Second toe amputation healed Neurological: - - Lack of normal epicritic sensation to light touch is consistent with his neuropathy status Psych/Mental Status: Normal Affect, Appropriate Debridement Note Post-Debridement Measurements/Treatment HAZEL - Nurse 2 - General Ulcer CM Notes Start: 11/08/20 09:38 Freq: Status: Active Protocol: Activity Type Activity Date Activity User E-Sign Co-Sign Detail Recorded Client Recorded Date Recorded By Document 11/08/20 10:03 ERNESTINE [id number] 11/08/20 10:21 JF Document 11/15/20 10:18 JF [id number] 11/15/20 10:28 JF 11/08/20 11/15/20 10:03 10:18 Wound Center Nurse 2 2-left dorsal foot -Time 10:03 10:18 -Correct Patient Yes Yes -Correct Side, Site, Position Yes Yes -Correct Procedure Yes Yes -Procedure Performed Yes Yes -Type of Procedure Debridement Debridement -Clinical Debridement Subcutaneous Subcutaneous -Tissue Removed Subcutaneous Subcutaneous -Post Debridement (cm) - Length 5.5 1 -Post Debridement (cm) - Width 2.5 2 -Post Debridement (cm) - Depth 0.1 0.1 -Total Square (Post) (cm) 13.75 2 -Area of Debridement (cm) - Length 5.5 1 -Area of Debridement (cm) - Width 2.5 2 -Total Square (Area) (cm) 13.75 2 -Tunneling No No -Undermining/Tunneling No No -Circular Undermining No No -Wound/Ulcer Outcome Not Healed Not Healed -Ulcer Cleansing Rinsed/ Rinsed/ Irrigated with Irrigated with Saline Saline -Foul Odor after Cleansing No No -Bioengineered Tissue Yes Yes -Type of Bioengineered Tissue Epifix Epifix 18mm Disc -Expiration Date 06/06/25 08/06/25 -Product Lot Number [id number] -Percent Used 100 100 -Lot number of Saline Used [id number] -Bleeding Controlled with Pressure Pressure -Offloading Yes Yes -Type of Offloading Surgical Shoe Surgical Shoe -Treatment Response Procedure Procedure Tolerated Well Tolerated Well -Debridement - Subq, 1st 20sq cm Yes No -Apply Skin Sub - 1st 25 sq cm - Feet 1 1 -Epifix (per sq cm) 4 -Epifix 18mm Disc 3 1. L foot plantar -Time 10:10 -Correct Patient Yes No -Correct Side, Site, Position Yes No -Correct Procedure Yes No -Procedure Performed Yes No -Type of Procedure Debridement -Clinical Debridement Subcutaneous -Tissue Removed Subcutaneous -Post Debridement (cm) - Length 0.3 0 -Post Debridement (cm) - Width 0.3 0 -Post Debridement (cm) - Depth 0.1 0 -Total Square (Post) (cm) 0.09 0 -Area of Debridement (cm) - Length 0.3 0 -Area of Debridement (cm) - Width 0.3 0 -Total Square (Area) (cm) 0.09 0 -Tunneling No -Undermining/Tunneling No -Circular Undermining No -Wound/Ulcer Outcome Not Healed Healed- Epithelialized -Ulcer Cleansing Rinsed/ Irrigated with Saline -Foul Odor after Cleansing No -Bioengineered Tissue Yes -Type of Bioengineered Tissue Epifix -Expiration Date 06/06/25 -Product Lot Number [id number] -Percent Used 100 -Lot number of Saline Used [id number] -Bleeding Controlled with Pressure -Offloading Yes -Type of Offloading Surgical Shoe -Treatment Response Procedure Tolerated Well -Debridement - Subq, 1st 20sq cm No -Epifix (per sq cm) 4 Pain Scale: 0-10 Numeric Is Patient Pain Free? Yes Yes - Nurse 3 - General Ulcer D/C NN Start: 11/08/20 09:38 Freq: Status: Active Protocol: Activity Type Activity Date Activity User E-Sign Co-Sign Detail Recorded Client Recorded Date Recorded By Document 11/15/20 10:28 [id number] 11/15/20 10:29 Document 11/22/20 10:25 [facility] [id number] 11/22/20 10:26 [facility] 11/15/20 11/22/20 10:28 10:25 Wound Care Nurse 3 2-left dorsal foot -Ulcer Cleansing Rinsed/ Rinsed/ Irrigated with Irrigated with Saline Saline -Foul Odor after Cleansing No -Primary Dressing Covered/Secured with Dry Gauze & Dry Gauze & Roll Gauze, Roll Gauze, Secured with Secured with Tape Tape,Other -Other Covering neo wrap to secure Left -Compression Wrap Neo Wrap Treatment Response Procedure Tolerated Well Pain Scale: 0-10 Numeric Is Patient Pain Free? Yes Yes - Visit Discharge Discharge Condition Stable Stable Ambulatory Status Ambulatory Ambulatory Transportation Private Auto Private Auto Accompanied by sister sister Medication Reconcilliation completed & Yes provided to patient/care provider Clinical Summary of Care Provided Yes Facility Type Home Health No debridement was completed today - The ulcer sites are healed Assessment/Plan Active Problems (Last Updated 07/09/20 @ 22:[address] Zachary Jean MD) Delayed wound healing (Chronic) Peripheral vascular disease (Chronic) small vessel disease Type 2 diabetes mellitus with diabetic polyneuropathy (Chronic) Assessment: Left foot ulcer plantar, no infection - healed today. Left dorsal foot -healed. Diabetes with neuropathy. Renal disease. Small vessel disease. Delayed healing. amputation toe, left second --healed Plan: I reviewed and discussed his case. He was reassured no local signs of infection are noted locally or systemically. The ulcer sites are healed. His skin is very fragile at this time and I recommend he continues to cover with a dry gauze and wear the offloading boot to allow appropriate skin remodeling. To gently wash with soap and water and to avoid soaking activities. It is okay for him to apply lotion around the adjacent area to maintain good skin integrity. To monitor closely. No debridement was performed today. It is noted he has underwent surgical intervention, basic wound care plan, and advanced wound care plan with nutritional supplementation and application of epifix. He has high risk and I recommend he follows up to clinic next week for a healed wound check. His last blood flow studies were reviewed from 07-26-2020 with ABIs and ankle waveforms. There are diminished toe pressures which are consistent with small vessel disease on the left lower extremity. To follow-up with vascular surgery as previously advised. He had additional vascular testing completed and he was advised to follow-up with Dr. Barriga as previously designated. I recommend that he continues with nutritional supplementation Gaudencio to optimize healing. Note: [employer] speech recognition railway yard assistant software was used to create portions of this document. Sound-alike and misspelled words, as well as other railway yard assistant errors may be contained in the documentation. The problems addressed require a moderate decision making level which includes one or more chronic illnesses (w/ exacerbation, progression, or side effects), two or more stable chronic illnesses, one undiagnosed new problem w/ uncertain prognosis, one acute illness with systemic symptoms, or one acute complicated injury. The medical decision making level is moderate. There is noted moderate risk of morbidity after considering this treatment plan and diagnostic data. Considerations were given to prescription management, decisions regarding surgical options, or social determinants of health. --------. 2020 macra: Reviewed today: Medications and allergies were reviewed and reconciled. Reviewed 11-22-20: His BMI is 27.0 which is elevated out of normal range. His blood pressure was 156/77 which is elevated. He was advised to follow-up with his primary care physician for management and education such as diet and activity were reviewed to optimize health. He denies falling within the past year. He is a nontobacco user.
[2020-11-29 10:45] VITALS: BP 119/64; PULSE 90; RESP 16; TEMP 35.8; BMI 27.0
--- NOTE | 2020-11-29 11:12 | PN.PCM_ITS ---
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 Valdez. He subsequently has been treated with a comprehensive wound healing plan including offloading, serial debridement, and custodial course of IV antibiotics under the management of infectious disease. He uses a surgical shoe and put weight on his heel to offload and also uses a wheelchair at times. He also uses a walker. The ulcer sites have healed and he presents today for healed wound check. He has diabetes and vascular disease and foot deformities. He is with his sister today. Progress of Wound: Healed - Physical Exam Vital Signs Temp Pulse Resp BP 96.5 F L 90 16 119/64 11/29/20 10:45 11/29/20 10:45 11/29/20 10:45 11/29/20 10:45 General: Alert, Oriented x3, Cooperative, No apparent distress HEENT: Atraumatic Extremities: No cyanosis, No edema, Capillary Refill Less than 3 Seconds, No Calf Tenderness, Diminished Peripheral Pulses Skin: Ulcer/ Wound - Full epithelialization is noted to the dorsal plantar foot. His skin is very atrophic, dry, and hairless. His skin is fragile. There are no local signs of infection. Wound Measurements and Assessment WC - Nurse 1 - General Ulcer Measurement Start: 11/08/20 09:38 Freq: Status: Discharge Protocol: Activity Type Activity Date Activity User E-Sign Co-Sign Detail Recorded Client Recorded Date Recorded By Document 11/29/20 10:45 ERNESTINE [id number] 11/29/20 10:48 ERNESTINE Edit Status 11/29/20 10:59 BKG DAEMON Active=>Discharge [facility] 11/29/20 10:59 BKG DAEMON 11/29/20 10:45 Wound Center Nurse 1 [Ulcer Assessment] 2-left dorsal foot -Combined with other wound No -Current Size (cm) - Length 0 -Current Size (cm) - Width 0 -Current Size (cm) - Depth 0 -Total Square Cm 0 -Epithelialization Large 67-100% [Edema Assessment] -Lower Limb Edema Present NA - Nurse 2 - General Ulcer CM Notes Start: 11/08/20 09:38 Freq: Status: Discharge Protocol: Activity Type Activity Date Activity User E-Sign Co-Sign Detail Recorded Client Recorded Date Recorded By Document 11/29/20 10:48 [id number] 11/29/20 10:50 Edit Status 11/29/20 10:59 BKG DAEMON Active=>Discharge [place] [id number] 11/29/20 10:59 BKG DAEMON 11/29/20 10:48 Pain Scale: 0-10 Numeric [Pain] -Is Patient Pain Free? Yes - Nurse 3 - General Ulcer D/C NN Start: 11/08/20 09:38 Freq: Status: Discharge Protocol: Activity Type Activity Date Activity User E-Sign Co-Sign Detail Recorded Client Recorded Date Recorded By Document 11/29/20 10:50 [id number] 11/29/20 10:50 Edit Status 11/29/20 10:59 BKG DAEMON Active=>Discharge [place] [id number] 11/29/20 10:59 BKG DAEMON 11/29/20 10:50 -Is Patient Pain Free? Yes - Visit Discharge [Visit Discharge Information] -Discharge Condition Stable -Ambulatory Status Ambulatory -Transportation Private Auto -Accompanied by sister -Medication Reconcilliation completed Yes & provided to patient/care provider -Clinical Summary of Care Provided Yes Musculoskeletal: No Tenderness to Palpation of Joints or Extremities, Muscle Wasting, - - Second toe amputation noted. Compartments remain soft to palpate. No pain on palpation. Neurological: - - Lack of normal epicritic sensation light touch is consistent with neuropathic status. Psych/Mental Status: Normal Affect, Appropriate Debridement Note Post-Debridement Measurements/Treatment - Nurse 2 - General Ulcer CM Notes Start: 11/08/20 09:38 Freq: Status: Discharge Protocol: Activity Type Activity Date Activity User E-Sign Co-Sign Detail Recorded Client Recorded Date Recorded By Document 11/08/20 10:03 [id number] 11/08/20 10:21 JF Document 11/15/20 10:18 [id number] 11/15/20 10:28 Document 11/29/20 10:48 [id number] 11/29/20 10:50 11/08/20 11/15/20 11/29/20 10:03 10:18 10:48 Wound Center Nurse 2 2-left dorsal foot -Time 10:03 10:18 -Correct Patient Yes Yes -Correct Side, Site, Position Yes Yes -Correct Procedure Yes Yes -Procedure Performed Yes Yes -Type of Procedure Debridement Debridement -Clinical Debridement Subcutaneous Subcutaneous -Tissue Removed Subcutaneous Subcutaneous -Post Debridement (cm) - Length 5.5 1 -Post Debridement (cm) - Width 2.5 2 -Post Debridement (cm) - Depth 0.1 0.1 -Total Square (Post) (cm) 13.75 2 -Area of Debridement (cm) - Length 5.5 1 -Area of Debridement (cm) - Width 2.5 2 -Total Square (Area) (cm) 13.75 2 -Tunneling No No -Undermining/Tunneling No No -Circular Undermining No No -Wound/Ulcer Outcome Not Healed Not Healed -Ulcer Cleansing Rinsed/ Rinsed/ Irrigated with Irrigated with Saline Saline -Foul Odor after Cleansing No No -Bioengineered Tissue Yes Yes -Type of Bioengineered Tissue Epifix Epifix 18mm Disc -Expiration Date 06/06/25 08/06/25 -Product Lot Number [id number] -Percent Used 100 100 -Lot number of Saline Used [id number] -Bleeding Controlled with Pressure Pressure -Offloading Yes Yes -Type of Offloading Surgical Shoe Surgical Shoe -Treatment Response Procedure Procedure Tolerated Well Tolerated Well -Debridement - Subq, 1st 20sq cm Yes No -Apply Skin Sub - 1st 25 sq cm - Feet 1 1 -Epifix (per sq cm) 4 -Epifix 18mm Disc 3 1. L foot plantar -Time 10:10 -Correct Patient Yes No -Correct Side, Site, Position Yes No -Correct Procedure Yes No -Procedure Performed Yes No -Type of Procedure Debridement -Clinical Debridement Subcutaneous -Tissue Removed Subcutaneous -Post Debridement (cm) - Length 0.3 0 -Post Debridement (cm) - Width 0.3 0 -Post Debridement (cm) - Depth 0.1 0 -Total Square (Post) (cm) 0.09 0 -Area of Debridement (cm) - Length 0.3 0 -Area of Debridement (cm) - Width 0.3 0 -Total Square (Area) (cm) 0.09 0 -Tunneling No -Undermining/Tunneling No -Circular Undermining No -Wound/Ulcer Outcome Not Healed Healed- Epithelialized -Ulcer Cleansing Rinsed/ Irrigated with Saline -Foul Odor after Cleansing No -Bioengineered Tissue Yes -Type of Bioengineered Tissue Epifix -Expiration Date 06/06/25 -Product Lot Number [id number] -Percent Used 100 -Lot number of Saline Used [id number] -Bleeding Controlled with Pressure -Offloading Yes -Type of Offloading Surgical Shoe -Treatment Response Procedure Tolerated Well -Debridement - Subq, 1st 20sq cm No -Epifix (per sq cm) 4 Pain Scale: 0-10 Numeric Is Patient Pain Free? Yes Yes Yes WC - Nurse 3 - General Ulcer D/C NN Start: 11/08/20 09:38 Freq: Status: Discharge Protocol: Activity Type Activity Date Activity User E-Sign Co-Sign Detail Recorded Client Recorded Date Recorded By Document 11/15/20 10:28 [id number] 11/15/20 10:29 Document 11/22/20 10:25 [facility] [id number] 11/22/20 10:26 [facility] Document 11/29/20 10:50 [id number] 11/29/20 10:50 11/15/20 11/22/20 11/29/20 10:28 10:25 10:50 Wound Care Nurse 3 2-left dorsal foot -Ulcer Cleansing Rinsed/ Rinsed/ Irrigated with Irrigated with Saline Saline -Foul Odor after Cleansing No -Primary Dressing Covered/Secured with Dry Gauze & Dry Gauze & Roll Gauze, Roll Gauze, Secured with Secured with Tape Tape,Other -Other Covering neo wrap to secure Left -Compression Wrap Neo Wrap Treatment Response Procedure Tolerated Well Pain Scale: 0-10 Numeric Is Patient Pain Free? Yes Yes Yes WC - Visit Discharge Discharge Condition Stable Stable Stable Ambulatory Status Ambulatory Ambulatory Ambulatory Transportation Private Auto Private Auto Private Auto Accompanied by sister sister sister Medication Reconcilliation completed & Yes Yes provided to patient/care provider Clinical Summary of Care Provided Yes Yes Facility Type Home Health No debridement was completed today - Ulcer sites have healed Assessment/Plan Active Problems (Last Updated 07/09/20 @ 22:[address] Zachary Jean MD) Delayed wound healing (Chronic) Peripheral vascular disease (Chronic) small vessel disease Type 2 diabetes mellitus with diabetic polyneuropathy (Chronic) Assessment: Left foot ulcer plantar, no infection - healed today. Left dorsal foot -healed. Diabetes with neuropathy. Renal disease. Small vessel disease. Delayed healing. amputation toe, left second --healed. Forefoot deformities Plan: I reviewed and discussed his case. He was reassured no local signs of infection are noted locally or systemically. The ulcer sites have remained healed. His skin is very fragile at this time and I recommend he continues to cover with a dry gauze and wear the offloading boot to allow appropriate skin remodeling for the next 2 to 4 weeks. To gently wash with soap and water and to avoid soaking activities. It is okay for him to apply lotion around the adjacent area to maintain good skin integrity. To monitor closely. No debridement was performed today. It is noted he has underwent surgical intervention, basic wound care plan, and advanced wound care plan with nutritional supplementation and application of epifix. He has high risk and I recommend he follows up at the foot and ankle center in the next few weeks (1 month at the latest) for a healed wound check, risk assessment, and to order extra-depth protective diabetic shoes and insoles given his diabetes status and forefoot deformities and recent amputation. His last blood flow studies were reviewed from 07-26-2020 with ABIs and ankle waveforms. There are diminished toe pressures which are consistent with small vessel disease on the left lower extremity. To follow-up with vascular surgery as previously advised. He had additional vascular testing completed and he was advised to follow-up with Dr. Barriga as previously designated. I recommend that he continues with nutritional supplementation Gaudencio to optimize healing. Note: [employer] speech recognition business professor software was used to create portions of this document. Sound-alike and misspelled words, as well as other business professor errors may be contained in the documentation. 20 minutes was spent on this encounter. This included face to face and non face to face care including preparing for the visit, reviewing the history, performing the exam, counseling and providing education to the patient, family, or caregiver, ordering medications/test/ procedures if indicated as documented, communicating with other healthcare providers, documenting information in the medical record, interpreting / sharing this information when indicated as documented, and care coordination. --------. 2020 macra: Reviewed today: Medications and allergies were reviewed and reconciled. Blood pressure normal at 119/64. Reviewed 11-22-20: His BMI is 27.0 which is elevated out of normal range. He was advised to follow-up with his primary care physician for management and education such as diet and activity were reviewed to optimize health. He denies falling within the past year. He is a nontobacco user.
== END 2020-11-29 10:58 | disposition home or self-care (01) ==
LOC: WC 10:30
PROVIDERS: PCP Family Medicine; Referring Provider Podiatrist; Visit Provider Podiatrist
DX: E11.621 Type 2 diabetes mellitus with foot ulcer (principal); L97.522 Non-pressure chronic ulcer of other part of left foot with fat layer exposed; I73.9 Peripheral vascular disease, unspecified; E11.42 Type 2 diabetes mellitus with diabetic polyneuropathy; L97.524 Non-pressure chronic ulcer of other part of left foot with necrosis of bone; E11.51 Type 2 diabetes mellitus with diabetic peripheral angiopathy without gangrene; I67.82 Cerebral ischemia
CPT/HCPCS: 11042; 15275; 99213; Q4186; G0463

== ENCOUNTER 2021-12-25 08:06 | Outpatient (CLI) | payer MEDICARE, MEDICAID, SELFPAY ==
--- NOTE | 2021-12-25 08:10 | RAD_ITS ---
STUDY: X-RAY - ESOPHAGUS (BARIUM SWALLOW) WITH FLUOROSCOPY REASON FOR EXAM: Male, 56 years old. GERD TECHNIQUE: 21 view(s) of the esophagus were obtained following swallowing of barium. FLUOROSCOPY TIME (if supplied): (43 seconds) minutes/seconds COMPARISON: None. FINDINGS: There is no demonstrated esophageal foreign body. There is no demonstrated stricture or mucosal abnormality. Small hiatal hernia with gastroesophageal reflux. The patient ingested a 12 mm tablet at bedtime. The tablet this trapped at the gastroesophageal junction. Normal visualized aortic arch and descending thoracic aorta. Normal visualized pulmonary parenchyma. Normal visualized osseous structures of the thorax. RAD/Esophagus Dual Contrast IMPRESSION: Small sliding hernia with the gastroesophageal reflux. The ingested 12 mm tablet of barium is trapped at the gastroesophageal junction. Electronically Signed: Nicko Mcallister MD at 10:10 EDT ,
== END 2021-12-25 23:59 | disposition home or self-care (01) ==
LOC: RAD 08:08
PROVIDERS: PCP Family Medicine; Referring Provider Otolaryngology; Visit Provider Otolaryngology
DX: K21.9 Gastro-esophageal reflux disease without esophagitis (principal)
CPT/HCPCS: 74221

== ENCOUNTER 2022-04-05 05:58 | Day surgery (SDC) | payer MEDICARE, MEDICAID, SELFPAY ==
[2022-04-05] VITALS (7 sets, daily range): BP systolic 123–165; BP diastolic 59–88; PULSE 18–81; RESP 16–69; TEMP 36.4–36.5; O2SAT 96–100; BMI 28.3
--- NOTE | 2022-04-05 06:39 | HP.PCM_ITS ---
History and Physical Date of Admission: 04/05/22 HOMAR CHAPMAN, is a 56 M who presents to the office today for Initial consultation. Clement established with this clinic 02.27.22 with referral from ENT for further evaluation of GERD and dysphagia with esophageal pain and emesis. This has been an ongoing issue for many months/years with worsening around 2020. He has been having difficulty with swallowing food, pills and liquids. Omeprazole 40mg QD started following episode and he has had a reduction of emesis and esophageal pain. Continues to have dysphagia and pays attention to what he is eating. [facility] pancreatic/kidney transplants in 2007 r/t DM type I with complication of renal disease requiring dialysis, he has had no further complications, transplant team last seen and it was a good visit. FH father prostate cancer; female breast cancers aunt/cousins. Laryngoscopy performed 12.20.21 with severe edema of the interarytenoid space noted. Barium swallow 12.25.21 finding small sliding hernia with GERD; tablet of barium trapped at GE junction. ROS Const Constitutional: No anorexia, fatigue, fever(s), weight change or sleep problems Eyes Eyes: No change in vision ENT ENT: No abnormal hearing, difficulty swallowing, mouth lesions, tongue swelling or throat swelling Resp Respiratory: No cough or shortness of breath Cardio Cardiology: No chest pain at rest, chest pain with exertion, shortness of breath or dyspnea on exertion Gastro GI: Positive for heartburn, nausea/dyspepsia and other (Dysphagia without odynophagia); No difficulty swallowing Genitourinary Male: No difficulty urinating or burning urination Musc Musculoskeletal: No joint pain, joint swelling, muscle weakness or decreased muscle mass Skin Skin: No hair loss in leg, yellowing of the eye, itchy eyes, rash, skin ulcer or skin swelling Neuro Neurology: No abnormal hearing, abnormal movements, confusion, unsteady gait/balance or memory loss Psych Psychiatric: No anxiety, No confusion and No memory loss Endo Endocrine: No fatigue or weight change Aller/Imm Allergy/Immunologic: No itchy eyes, throat swelling or tongue swelling Skip/Lymp Hematologic/Lymphatic: No easy bleeding, easy bruising or enlarged lymph nodes Exam Const General: cooperative and comfortable Nutritional Appearance: average body habitus and well nourished HENCT Head: normal to inspection Ears: hearing grossly normal bilaterally Nose: external nose normal Face and sinus: normal facial exam Mouth: oral mucosae normal Throat: posterior oropharynx normal Eyes General: appearance normal, both eyes and all related structures Neck Neck: normal visual inspection Chest Chest palpation & inspection: normal inspection of the chest and normal palpation of entire chest wall Resp Effort & Inspection: normal respiratory effort Auscultation: Bilateral: Clear to Auscultation Cardio Palpation: normal PMI Rate: regular rate Rhythm: regular rhythm GI Inspection: normal to inspection Auscultation: normal bowel sounds Percussion: normal to percussion Palpation: no hepatosplenomegaly Skin General: no rashes or lesions noted Neuro General: patient alert Extrem General: normal to inspection Psych Affect: normal affect Quality Reporting Tobacco Screening ([facility] 138) Smoking Status: Never smoker Assessment and Plan Assessment and Plan (1) Dysphagia: ?Status:?Acute ?Plan - Dr. Hernandez Friend, DO: The differential diagnosis for his esophageal dysphagia would be Becca associated esophagitis secondary to tacrolimus, erosive esophagitis, eosin ophilic esophagitis, esophageal web, esophageal stricture, hiatal hernia with associated Schatzki's ring.? He will undergo an upper endoscopy to evaluate his upper GI tract. (2) Esophageal pain: ?Status:?Acute ?Plan - Dr. Hernandez Friend, DO: Noted in the esophagus could be secondary to odynophagia from infection versus erosive esophagitis.? After taking omeprazole for approximately 3 weeks his pain is a lot better.? I would not recommend that he go back on empiric treatment at this time.? We will further stage him after an upper endoscopy. (3) Gastroesophageal reflux disease: ?Plan - Dr. Hernandez Friend, DO: He can take omeprazole therapy 20 mg [id number] occasional heartburn.? We had discussed with him possibly getting a Sage procedure.? However we will see if it is necessary.? We will also assess him for Huber's esophagus with his upper endoscopy. I have re-examined the patient. There are no clinical changes since date of exam.
[2022-04-05] MEDS: Lactated Ringers 1,000 ML 15 ML IV (06:40)
--- NOTE | 2022-04-05 07:00 | EGD_PTH ---
PATIENT: HOMAR CHAPMAN LOC: EN U#:[id number] AGE/SX: 56/M ROOM: RE04/05/[address]: Dr. David Barraza DO : 1965 BED: DIS: 04/05/2022 SPEC #: [id number] RECD: 04/05/22 13:14 STATUS: IGLESIA RAJEEV #: [id number] MICHAEL: 04/05/22 07:[address]: David Barraza DEPT: SURGICAL PATHOLOGY RECD BY: Laurence Bryant ENTERED: 04/05/22 13:29 SP TYPE: EGD BIOPSY LAINE DR: Dr. Tung Isaac MD Tissues: A - Esophagus, NOS B - Esophagus, NOS Procedures: Special Stain Group II Surgery Specimen Level IV Alcian Blue/PAS (control) HEADER OPERATION: EGD ([facility]) PRE-OP DIAGNOSIS: Dysphagia, esophageal pain TISSUE SUBMITTED: A ? Distal esophagus biopsy, B ? Incisor area biopsy MICROSCOPIC DIAGNOSIS A. Distal esophagus, biopsy: Gastroesophageal junctional mucosa with mild chronic inflammation. No evidence of goblet cell metaplasia. See comment. B. Incisor area, biopsy: Fragments of gastric mucosa with mild chronic inflammation. See comment. AM:nacho 04/09/2022 COMMENT A. Alcian blue/PAS stain with matched control supports the above diagnosis. B. Immunohistochemistry for Helicobacter pylori can be performed if clinically indicated. Please notify the Laboratory if it is needed. MICROSCOPIC DESCRIPTION Slides are reviewed. GROSS DESCRIPTION A - Received in fixative is one container labeled with the patient's name and designated distal esophagus biopsy. The specimen consists of multiple irregular fragments of light dumont soft tissue that in aggregate measure 0.8 x 0.3 x 0.1 cm. The specimen is totally submitted in one cassette. B - Received in fixative is one container labeled with the patient's name and designated incisor area biopsy. The specimen consists of one irregular fragment of light dumont soft tissue that measures 1 x 0.2 x 0.1 cm. The specimen is totally submitted in one cassette. / SJ:nacho 04/05/2022 TC:3 CPT: 17875 x2, 81480
--- NOTE | 2022-04-05 07:28 | OP.EGD_ITS ---
Patient Name: Vladimir Fallon Procedure Date: 04/05/2022 7:01 AM Date of : 1965 Age: 56 Procedure: Upper GI endoscopy Indications: Dysphagia Providers: David Barraza DO Medicines: Monitored Anesthesia Care Patient Profile: This is a 56 year old male. Refer to note in patient chart for documentation of history and physical. Patient has symptoms. The symptoms first began February. Complications: No immediate complications. Procedure: Pre-Anesthesia Assessment: - Prior to the procedure, a History and Physical was performed, and patient medications and allergies were reviewed. The risks and benefits of the procedure and the sedation options and risks were discussed with the patient. All questions were answered and informed consent was obtained. Patient identification and proposed procedure were verified by the physician in the pre-procedure area. Mental Status Examination: alert and oriented. Airway Examination: normal oropharyngeal airway and neck mobility. Respiratory Examination: clear to auscultation. CV Examination: normal. Prophylactic Antibiotics: The patient does not require prophylactic antibiotics. Prior Anticoagulants: The patient has taken no previous anticoagulant or antiplatelet agents. ASA Grade Assessment: II - A patient with mild systemic disease. After reviewing the risks and benefits, the patient was deemed in satisfactory condition to undergo the procedure. The anesthesia plan was to use moderate sedation / analgesia (conscious sedation). Immediately prior to administration of medications, the patient was re-assessed for adequacy to receive sedatives. The heart rate, respiratory rate, oxygen saturations, blood pressure, adequacy of pulmonary ventilation, and response to care were monitored throughout the procedure. The physical status of the patient was re-assessed after the procedure. After obtaining informed consent, the endoscope was passed under direct vision. Throughout the procedure, the patient's blood pressure, pulse, and oxygen saturations were monitored continuously. The gastroscope was introduced through the mouth, and advanced to the second part of duodenum. The upper GI endoscopy was accomplished without difficulty. The patient tolerated the procedure well. Scope In: 7:12:38 AM Scope Out: 7:18:43 AM Total Procedure Duration Time 0 hours 6 minutes 5 seconds Findings: The lower third of the esophagus was moderately tortuous. The Z-line was irregular and was found 38 cm from the incisors. Biopsies were taken with a cold forceps for histology. Verification of patient identification for the specimen was done. Estimated blood loss was minimal. A few localized, 5 mm non-bleeding erosions were found at the incisura. There were no stigmata of recent bleeding. Biopsies were taken with a cold forceps for histology. Verification of patient identification for the specimen was done. Estimated blood loss was minimal. A large amount of a trichobezoar was found in the gastric body. Food (residue) was found in the duodenal bulb. Impression: - Tortuous esophagus. - Z-line irregular, 38 cm from the incisors. Biopsied. - Non-bleeding erosive gastropathy. Biopsied. - A large amount of a trichobezoar in the stomach. - Retained food in the duodenum. Recommendation: - Discharge patient to home. - Resume previous diet. - Continue present medications. - Await pathology results. -Gastric emptying study Procedure Code(s): --- Professional --- 11432, Esophagogastroduodenoscopy, flexible, transoral; with biopsy, single or multiple CPT copyright 2017 [employer]. All rights reserved. The codes documented in this report are preliminary and upon riveter hand review may be revised to meet current compliance requirements. David Barraza DO 04/05/2022 7:27:59 AM This report has been signed electronically. Number of Addenda: 1 Note Initiated On: 04/05/2022 7:01 AM Addendum Number: 1 Addendum Date: 07/10/2022 6:33:40 AM MAC was used as sedation for this procedure. David Barraza DO 07/10/2022 6:33:45 AM This report has been signed electronically.
--- NOTE | 2022-04-05 07:28 | OP.CCLET_ITS ---
07/10/2022 Tung Isaac Re : Upper GI endoscopy procedure for Vladimir Nesbittmikey Isaac This procedure was performed on Tuesday, April 05, 2022. My impressions and recommendations are as follows: Impressions : - Tortuous esophagus. - Z-line irregular, 38 cm from the incisors. Biopsied. - Non-bleeding erosive gastropathy. Biopsied. - A large amount of a trichobezoar in the stomach. - Retained food in the duodenum. Recommendations : - Discharge patient to home. - Resume previous diet. - Continue present medications. - Await pathology results. -Gastric emptying study My findings are described in the full procedure note, which is enclosed. If I can be of further assistance, please feel free to contact me at . Sincerely, David Friend, 04/05/2022 7:27:59 AM This report has been signed electronically.
== END 2022-04-05 08:15 | disposition home or self-care (01) ==
LOC: EN 06:05 → AC 06:05
PROVIDERS: PCP Family Medicine; Referring Provider Family Medicine; Visit Provider Internal Medicine Gastroenterology
PROC: 0DJ08ZZ Inspection of Upper Intestinal Tract, Via Natural or Artificial Opening Endoscopic (ICD-10-PCS; CPT 43235; principal; 2022-04-05 06:55)
DX: K21.00 Gastro-esophageal reflux disease with esophagitis, without bleeding (principal); N18.6 End stage renal disease; Q43.8 Other specified congenital malformations of intestine; T18.2XXA Foreign body in stomach, initial encounter; Z79.899 Other long term (current) drug therapy; Z94.0 Kidney transplant status; X58.XXXA Exposure to other specified factors, initial encounter
CPT/HCPCS: 43239; 88305; 88313; J7120; J2405

== ENCOUNTER → 2022-05-09 | Outpatient (CLI) | payer MEDICARE, MEDICAID, SELFPAY ==
--- NOTE | 2022-05-09 09:42 | NM_ITS ---
CLINICAL: 56-year-old male with history of suspected delayed gastric emptying. SEMI-SOLID PHASE 99m Tc SULFUR COLLOID GASTRIC EMPTYING STUDY COMPARISON: None available FINDINGS: The patient was administered 1.1 mCi of 99m Tc sulfur colloid mixed with oatmeal and consumed per os. Image acquisitions in the anterior projection were obtained for 60 minutes. There is prompt visualization of the stomach. There is no gastroesophageal reflux identified. First order kinetics are maintained throughout the duration of the acquisitions. The T ? emptying was calculated to be > 200 minutes, (Normal: 12-56 minutes). NM/Gastric Emptying Study IMPRESSION: 1. ABNORMAL 99m Tc sulfur colloid semi-solid phase (oatmeal) gastric emptying imaging examination. A. There is significantly delayed semi-solid phase gastric emptying compared to normal controls. (Shahnaz et al, J Nucl Med Tech 38: 186, 2010). Electronically Signed: Jose Lockett, at 15:59 EDT ,
== END | disposition home or self-care (01) ==
PROVIDERS: PCP Family Medicine; Referring Provider Nurse Practitioner Adult Health; Visit Provider Nurse Practitioner Adult Health
DX: E11.9 Type 2 diabetes mellitus without complications (principal)
CPT/HCPCS: 78264; A9541

== ENCOUNTER 2022-07-29 10:42 | Day surgery (SDC) | payer MEDICARE, MEDICAID, SELFPAY ==
[2022-07-29] MEDS: Lactated Ringers 1,000 ML 15 ML IV (11:00)
[2022-07-29 11:12] VITALS: BP 126/69; PULSE 73; RESP 16; TEMP 36.2; O2SAT 99; BMI 27.6
--- NOTE | 2022-07-29 11:57 | HP.PCM_ITS ---
History and Physical Date of Admission: 07/29/22 HOMAR CHAPMAN, is a 56 M who presents to the office today for 6 wk f/u large trichobezoar in the stomach, gastroparesis. On EGD there was also retained food in the duodenum. He does feel better after treatment for bezoar with concoction of coke/baking soda/cellulase; it caused significant diarrhea, he feels a lot less upper abd discomfort, bloating, nausea, early satiety. He gets discomfort LUQ, may be gas pains, has constipation. He is on omeprazole for gerd. He has a history of type 1 diabetes which was treated with kidney and pancreas transplants.? Laryngoscopy performed 12.20.21 with severe edema of the interarytenoid space noted. Barium swallow 12.25.21 finding small sliding hernia with GERD; tablet of barium trapped at GE junction. 05/09/22 Gastric Emptying Study: significantly delayed emptying;?emptying was calculated to be > 200 minutes (normal 12-56 min). ROS Const Constitutional: No fatigue ENT ENT: No difficulty swallowing Gastro GI: Positive for abdominal pain, bloating, constipation and excessive flatus; No belching, change in bowel habits, change in stool character, coffee ground emesis, cramping, diarrhea, heartburn, difficulty swallowing, feeling full early, incontinent of stools, Vomiting blood/hematemesis, Blood in stool, loose stools, Black,tarry stools, nausea/dyspepsia, pain with swallowing, vomiting or other Musc Musculoskeletal: No joint pain Skin Skin: No yellowing of the eye or itchy eyes Psych Psychiatric: No anxiety and No depression Endo Endocrine: No fatigue Aller/Imm Allergy/Immunologic: No itchy eyes Skip/Lymp Hematologic/Lymphatic: No easy bleeding or easy bruising Exam Const General: cooperative, comfortable and no acute distress Nutritional Appearance: overweight Orientation: alert, awake and oriented x3 Quality Reporting Tobacco Screening ([facility] 138) Smoking Status: Never smoker Assessment and Plan Assessment and Plan (1) Gastroparesis: ?Status:?Acute ?Plan: Discussed significant delayed emptying start reglan 5 mg before meals (usually 2 meals per day), cautioned re risk of tardive dyskinesia repeat egd to reevaluate the status of the bezoar, f/u 2 wks after egd ? ? ? Medications: New metoclopramide HCl ?? administer 30 minutes before meals 5? I have re-examined the patient. There are no clinical changes since date of exam.
[2022-07-29 12:20] VITALS: BP 126/69; BP 99/57; PULSE 65; PULSE 73; RESP 16; TEMP 35.6; O2SAT 93; O2SAT 94
--- NOTE | 2022-07-29 12:21 | OP.CCLET_ITS ---
07/29/2022 Tung Isaac Re : Upper GI endoscopy procedure for Vladimir Nesbittmikey Isaac This procedure was performed on Friday, July 29, 2022. My impressions and recommendations are as follows: Impressions : - Normal esophagus. - Small hiatal hernia. - A large amount of food (residue) in the stomach. - No gross lesions in the first portion of the duodenum. - No specimens collected. Recommendations : - Discharge patient to home. - Resume previous diet. - Continue present medications. - Use Creon 3 tablets PO TID with meals daily. My findings are described in the full procedure note, which is enclosed. If I can be of further assistance, please feel free to contact me at . Sincerely, David Barraza, 07/29/2022 12:20:49 PM This report has been signed electronically.
--- NOTE | 2022-07-29 12:21 | OP.EGD_ITS ---
Patient Name: Vladimir Fallon Procedure Date: 07/29/2022 11:57 AM Date of : 1965 Age: 56 Procedure: Upper GI endoscopy Indications: Epigastric abdominal pain, Failure to respond to medical treatment Providers: David Barraza DO Medicines: Monitored Anesthesia Care Patient Profile: This is a 56 year old male. Refer to note in patient chart for documentation of history and physical. Patient has symptoms of chronic abdominal distention, chronic epigastric abdominal pain and chronic dyspepsia. Complications: No immediate complications. Procedure: Pre-Anesthesia Assessment: - Prior to the procedure, a History and Physical was performed, and patient medications and allergies were reviewed. The patient is competent. The risks and benefits of the procedure and the sedation options and risks were discussed with the patient. All questions were answered and informed consent was obtained. Patient identification and proposed procedure were verified by the physician in the pre-procedure area. Mental Status Examination: alert and oriented. Airway Examination: normal oropharyngeal airway and neck mobility. Respiratory Examination: clear to auscultation. CV Examination: normal. Prophylactic Antibiotics: The patient does not require prophylactic antibiotics. Prior Anticoagulants: The patient has taken no previous anticoagulant or antiplatelet agents. ASA Grade Assessment: III - A patient with severe systemic disease. After reviewing the risks and benefits, the patient was deemed in satisfactory condition to undergo the procedure. The anesthesia plan was to use monitored anesthesia care (MAC). Immediately prior to administration of medications, the patient was re-assessed for adequacy to receive sedatives. The heart rate, respiratory rate, oxygen saturations, blood pressure, adequacy of pulmonary ventilation, and response to care were monitored throughout the procedure. The physical status of the patient was re-assessed after the procedure. After obtaining informed consent, the endoscope was passed under direct vision. Throughout the procedure, the patient's blood pressure, pulse, and oxygen saturations were monitored continuously. The gastroscope was introduced through the mouth, and advanced to the second part of duodenum. Scope In: 12:08:27 PM Scope Out: 12:10:18 PM Total Procedure Duration Time 0 hours 1 minute 51 seconds Findings: The examined esophagus was normal. A small hiatal hernia was present. A large amount of food (residue) was found in the entire examined stomach. No gross lesions were noted in the first portion of the duodenum. Impression: - Normal esophagus. - Small hiatal hernia. - A large amount of food (residue) in the stomach. - No gross lesions in the first portion of the duodenum. - No specimens collected. Recommendation: - Discharge patient to home. - Resume previous diet. - Continue present medications. - Use Creon 3 tablets PO TID with meals daily. Procedure Code(s): --- Professional --- 55395, Esophagogastroduodenoscopy, flexible, transoral; diagnostic, including collection of specimen(s) by brushing or washing, when performed (separate procedure) CPT copyright 2017 [employer]. All rights reserved. The codes documented in this report are preliminary and upon domestic helper review may be revised to meet current compliance requirements. David Barraza DO 07/29/2022 12:20:49 PM This report has been signed electronically. Number of Addenda: 0 Note Initiated On: 07/29/2022 11:57 AM
[2022-07-29 12:25] VITALS: BP 107/61; BP 126/69; PULSE 76; RESP 16; O2SAT 95
[2022-07-29 12:30] VITALS: BP 106/60; BP 126/69; PULSE 68; RESP 16; O2SAT 96
[2022-07-29 12:35] VITALS: BP 116/65; BP 126/69; PULSE 71; RESP 16; TEMP 36.4; O2SAT 97
[2022-07-29 12:51] VITALS: BP 126/69
== END 2022-07-29 12:55 | disposition home or self-care (01) ==
LOC: EN 10:42 → AC 10:43
PROVIDERS: PCP Family Medicine; Referring Provider Family Medicine; Visit Provider Internal Medicine Gastroenterology
PROC: 0DJ08ZZ Inspection of Upper Intestinal Tract, Via Natural or Artificial Opening Endoscopic (ICD-10-PCS; CPT 43235; principal; 2022-07-29 12:10)
DX: K44.9 Diaphragmatic hernia without obstruction or gangrene (principal); K31.84 Gastroparesis; R10.13 Epigastric pain
CPT/HCPCS: 43235; J7120; J2405

== ENCOUNTER 2023-05-07 06:32 | Day surgery (SDC) | payer MEDICARE, MEDICAID, SELFPAY ==
[2023-05-07] MEDS: Lactated Ringers 1,000 ML 15 ML IV (07:04)
[2023-05-07 07:05] VITALS: BP 134/82; PULSE 69; RESP 18; TEMP 36.5; O2SAT 98; BMI 29.8
--- NOTE | 2023-05-07 07:38 | PCM.HP.BLA ---
History and Physical Date of Admission: 05/07/23 f/u gastroparesis Details: HOMAR CHAPMAN, is a 57 M who presents to the office today for 6 month f/u gastroparesis. He reports he is doing very well. He continues to take Creon pancreatic enzymes 1 cap with snack and 2 caps with meals. No longer taking cellulase or Coke. 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 At his last EGD in 07/2022 almost all of the large phytobezoar was removed endoscopically.?Creon was started then. He hasn't needed metoclopramide. He denies early satiety, bloating, nausea, heartburn, abdominal pain. He is having a normal bowel movement without any signs of dumping or constipation.?No dysphagia. Clement established with this clinic 02.27.22 with referral from ENT for further evaluation of GERD and dysphagia with esophageal pain and emesis. This had been an ongoing issue for many months/years with worsening around 2020. [facility] pancreatic/kidney transplants in 2007 r/t DM type I with complication of renal disease requiring dialysis. Laryngoscopy performed 12.20.21 with severe edema of the interarytenoid space noted. Barium swallow 12.25.21 finding small sliding hernia with GERD; tablet of barium trapped at GE junction. EGD .10.27 noting tortuous esophagus; irregular Z-Line 38cm; non-bleeding erosive gastropathy; large amount of trichobezoar; retained food in duodenum. Gastric emptying study 8.01.25 timed at >200 minutes (12-56 normal). EGD 07.29.22 noting small hiatal hernia; large amount of food residue in stomach. No specimens collected. ROS Const Constitutional: No fatigue ENT ENT: No difficulty swallowing Gastro GI: No abdominal pain, belching, bloating, change in bowel habits, change in stool character, coffee ground emesis, constipation, cramping, diarrhea, heartburn, difficulty swallowing, feeling full early, excessive flatus, incontinent of stools, Vomiting blood/hematemesis, Blood in stool, loose stools, Black,tarry stools, nausea/dyspepsia, pain with swallowing, vomiting or other Musc Musculoskeletal: No joint pain Skin Skin: No yellowing of the eye or itchy eyes Psych Psychiatric: No anxiety and No depression Endo Endocrine: No fatigue Aller/Imm Allergy/Immunologic: No itchy eyes Skip/Lymp Hematologic/Lymphatic: No easy bleeding or easy bruising Exam Const General: cooperative, healthy appearing and comfortable Orientation: alert, awake and oriented x3 Quality Reporting Tobacco Screening ([facility] 138) Smoking Status: Never smoker Assessment and Plan Assessment and Plan (1) Gastroparesis due to DM: Status: Chronic Plan: Plan is repeat EGD to make sure the bezoar has not returned and the remnants have all been digested Continue omeprazole 40 mg daily for now; transplant physician would like him to be on lower dose eventually Continue Creon 1 cap with snacks and 2 caps with meals I have examined the patient and the H&P has been reviewed. There are no clinical changes since date of exam.
[2023-05-07 07:55] VITALS: BP 134/82; BP 88/61; PULSE 76; RESP 16; TEMP 36.6; O2SAT 94
[2023-05-07 08:00] VITALS: BP 108/75; BP 134/82; PULSE 76; RESP 16; O2SAT 96
--- NOTE | 2023-05-07 08:04 | OP.EGD_ITS ---
Patient Name: Vladimir Fallon Procedure Date: 05/07/2023 7:38 AM Date of : 1965 Age: 57 Procedure: Upper GI endoscopy Indications: Epigastric abdominal pain Providers: David Barraza DO Medicines: Monitored Anesthesia Care Patient Profile: This is a 57 year old male. Refer to note in patient chart for documentation of history and physical. Patient has symptoms of chronic epigastric abdominal pain and chronic nausea. Complications: No immediate complications. Procedure: Pre-Anesthesia Assessment: - Prior to the procedure, a History and Physical was performed, and patient medications and allergies were reviewed. The patient is competent. The risks and benefits of the procedure and the sedation options and risks were discussed with the patient. All questions were answered and informed consent was obtained. Patient identification and proposed procedure were verified by the physician in the pre-procedure area. Mental Status Examination: alert and oriented. Airway Examination: normal oropharyngeal airway and neck mobility. Respiratory Examination: clear to auscultation. CV Examination: normal. Prophylactic Antibiotics: The patient does not require prophylactic antibiotics. Prior Anticoagulants: The patient has taken no previous anticoagulant or antiplatelet agents. ASA Grade Assessment: II - A patient with mild systemic disease. After reviewing the risks and benefits, the patient was deemed in satisfactory condition to undergo the procedure. The anesthesia plan was to use monitored anesthesia care (MAC). Immediately prior to administration of medications, the patient was re-assessed for adequacy to receive sedatives. The heart rate, respiratory rate, oxygen saturations, blood pressure, adequacy of pulmonary ventilation, and response to care were monitored throughout the procedure. The physical status of the patient was re-assessed after the procedure. After obtaining informed consent, the endoscope was passed under direct vision. Throughout the procedure, the patient's blood pressure, pulse, and oxygen saturations were monitored continuously. The Endoscope was introduced through the mouth, and advanced to the second part of duodenum. The upper GI endoscopy was accomplished without difficulty. The patient tolerated the procedure well. Scope In: 7:49:08 AM Scope Out: 7:50:35 AM Total Procedure Duration Time 0 hours 1 minute 27 seconds Findings: The examined esophagus was normal. A large amount of a trichobezoar was found in the entire examined stomach. The duodenal bulb was normal. Impression: - Normal esophagus. - A large amount of a trichobezoar in the stomach. - Normal duodenal bulb. - No specimens collected. Recommendation: - Discharge patient to home (ambulatory). - Full liquid diet. - Continue present medications. Procedure Code(s): --- Professional --- 72065, Esophagogastroduodenoscopy, flexible, transoral; diagnostic, including collection of specimen(s) by brushing or washing, when performed (separate procedure) CPT copyright 2017 [employer]. All rights reserved. The codes documented in this report are preliminary and upon windows support engineer review may be revised to meet current compliance requirements. David Barraza DO 05/07/2023 8:03:55 AM This report has been signed electronically. Number of Addenda: 0 Note Initiated On: 05/07/2023 7:38 AM
--- NOTE | 2023-05-07 08:04 | OP.CCLET_ITS ---
05/07/2023 Tung Isaac Re : Upper GI endoscopy procedure for Vladimir Fallon Dear [place] This procedure was performed on Sunday, May 07, 2023. My impressions and recommendations are as follows: Impressions : - Normal esophagus. - A large amount of a trichobezoar in the stomach. - Normal duodenal bulb. - No specimens collected. Recommendations : - Discharge patient to home (ambulatory). - Full liquid diet. - Continue present medications. My findings are described in the full procedure note, which is enclosed. If I can be of further assistance, please feel free to contact me at . Sincerely, David Barraza, 05/07/2023 8:03:55 AM This report has been signed electronically.
[2023-05-07 08:05] VITALS: BP 108/64; BP 134/82; PULSE 73; RESP 16; O2SAT 97
[2023-05-07 08:10] VITALS: BP 100/61; BP 134/82; PULSE 75; RESP 16; TEMP 36.6; O2SAT 97
[2023-05-07 08:32] VITALS: BP 134/82
== END 2023-05-07 08:47 | disposition home or self-care (01) ==
LOC: EN 06:35 → AC 06:37
PROVIDERS: PCP Family Medicine; Referring Provider Family Medicine; Visit Provider Internal Medicine Gastroenterology
PROC: 0DJ08ZZ Inspection of Upper Intestinal Tract, Via Natural or Artificial Opening Endoscopic (ICD-10-PCS; CPT 43235; principal; 2023-05-07 07:40)
DX: E11.43 Type 2 diabetes mellitus with diabetic autonomic (poly)neuropathy (principal); R10.13 Epigastric pain; K31.84 Gastroparesis; K21.9 Gastro-esophageal reflux disease without esophagitis
CPT/HCPCS: 43235; J7120; J2405

== ENCOUNTER 2025-08-04 21:02 | Inpatient (IN) | payer MEDICARE, MEDICAID, SELFPAY ==
[2025-08-04 21:02] VITALS: BP 99/48; PULSE 110; RESP 20; TEMP 37.2; O2SAT 96; BMI 27.1
--- NOTE | 2025-08-04 21:36 | CT_ITS ---
PROCEDURE: ABDOMEN/PELVIS WITHOUT CONT 08/04/2025 REASON FOR EXAM: ABD PAIN TECHNIQUE: Procedure Code: CTABDPEL Modality: CT Procedure: ABDOMEN/PELVIS WITHOUT CONT Noncontrast technique limits evaluation of the abdominal and pelvic viscera. Coronal and Sagittal reconstruction series were provided. One or more dose reduction techniques were used (e.g., Automated exposure control, adjustment of the mA and/or kV according to patient size, use of iterative reconstruction technique). RADIATION DOSE SUMMARY: CTDlvol: 14.97 mGy DLP: 957 mGycm COMPARISON: None. FINDINGS: Multiple enlarged retroperitoneal lymph nodes are noted with the largest measuring 2.3 cm. Surgical changes of the stomach and the small bowels. Mild gastroparesis/gastritis. Changes of central mesenteric panniculitis. Mild bilateral basilar atelectatic pulmonary changes. Moderate diffuse spondylosis with chronic Schmorl's node formation. Mild prostatomegaly. Severe chronic atrophy of the nez perce kidneys. Mild fullness of the left lower quadrant renal transplant collecting system secondary to reflux. Splenomegaly measuring 14.6 cm. Diffuse thickening of the cecum and proximal ascending colon, possibly inflammatory pathology. This can be followed up. Adjacent mildly enlarged lymph nodes are noted with the largest measuring 1.3 cm. Multifocal mesenteric nodularity and thickening. Absent distal thirds of the nez perce pancreas. Unremarkable pancreatic transplant in the right lower quadrant. The visualized lung bases are unremarkable. Normal unenhanced liver. Normal gallbladder and extrahepatic biliary system. Normal unenhanced spleen. Normal bilateral adrenal glands. There is no right renal mass. There are no right renal calculi. There is no right hydronephrosis. Normal visualized right ureter. There is no left renal mass. There are no left renal calculi. There is no left hydronephrosis. Normal visualized left ureter. The appendix is not visualized and appears normal. There is no demonstrated peritoneal fluid. Calcified atheromatous plaques of the abdominal aorta. Normal inferior vena cava. Normal retroperitoneum. Normal urinary bladder. There is no pelvic mass lesion. There is no pelvic fluid. CT/Abdomen/Pelvis without Cont IMPRESSION: Multiple enlarged retroperitoneal lymph nodes are noted with the largest measur ing 2.3 cm. Surgical changes of the stomach and the small bowels. Mild gastroparesis/gastritis. Changes of central mesenteric panniculitis. Mild bilateral basilar atelectatic pulmonary changes. Moderate diffuse spondylosis with chronic Schmorl's node formation. Mild prostatomegaly. Severe chronic atrophy of the nez perce kidneys. Mild fullness of the left lower quadrant renal transplant collecting system sec ondary to reflux. Splenomegaly measuring 14.6 cm. Diffuse thickening of the cecum and proximal ascending colon, possibly inflamma tory pathology. This can be followed up. Adjacent mildly enlarged lymph nodes are noted with the largest measuring 1.3 c m. Multifocal mesenteric nodularity and thickening. Absent distal thirds of the nez perce pancreas. Unremarkable pancreatic transplant in the right lower quadrant. Reading Location: [id number]
--- NOTE | 2025-08-04 21:46 | EDS_ITS ---
HPI HPI - GI History of Present Illness Chief Complaint: Abd Pain Informant: patient and family (Accompanied by sister.) Abdominal Pain/Flank Pain Onset: Days Context: Gradual Onset Timing: Continuous Quality: Aching Current Severity: Mild Maximum Severity: Mild Worsened by: Nothing Relieved by: Nothing Nausea/Vomiting/Emesis GI Symptom: Positive for Nausea; Negative for Vomiting Onset: Today Severity: Mild Diarrhea/Melena/Hematochezia GI Symptom: Positive for Diarrhea and - (Dark stool.) Onset: Today Stool Quality: Positive for Loose Severity: Mild Associated Symptoms Associated Symptoms: Negative for Dysuria, Frequency, Hematuria or Urgency Narrative Narrative: 59-year-old male history of renal pancreatic transplant [address] [facility]. States his abdominal pain since last . Left side. Tonight he had black stool he was concerned and came in. No history of GI bleed. No hematemesis. Said nausea no vomiting. Some loose stool. No fever. No dysuria. He is on no blood thinners. Prior similar symptoms: No Recent Illness/Hospitalization: No PFSH PFSH Medical History History of renal disease Gastric reflux Wears glasses Diabetes History of renal dialysis Non-smoker Leg cramps Hypertension History of Holter monitoring Amputation of left hand Cataracts, bilateral GERD (gastroesophageal reflux disease) ESRD (end stage renal disease) History of end stage renal disease Home Medications Medication Instructions Recorded Last Taken Type mycophenolate mofetil 500 mg tablet 500 mg PO BID ANTI REJECTION 07/09/20 07/29/22 History tacrolimus 1 mg capsule, 2 mg PO DAILY@2000 antirejec tion 07/10/20 04/04/22 History immediate-release med tacrolimus 1 mg capsule, 3 mg PO DAILY@0800 anitrejec tion 07/10/20 07/29/22 History immediate-release med ferrous sulfate 325 mg (65 mg 325 mg PO BID 08/05/25 U nknown History iron) tablet Allergy/AdvReac Type Severity Reaction Status Date / Time iodine Allergy Intermediate Rash Verified 08/04/25 21:02 doxazosin AdvReac Rash Verified 08/04/25 21:02 doxycycline AdvReac Rash Verified 08/04/25 21:02 Penicillins AdvReac Rash Verified 08/04/25 21:02 Family History Father Cancer Hypertension Diabetes Mother Hypertension Diabetes Surgical History History of amputation of left hand History of esophagogastroduodenoscopy (EGD) Hx of arteriovenostomy for renal dialysis Hx of colonoscopy Hx of foot surgery Pancreas transplanted Kidney transplant recipient Social History Smoking Status: Never smoker alcohol intake: never ROS ROS ED ROS Narrative Abdominal pain. Nausea. Dark stool overnight. Constitutional Constitutional ED: Denies chills or fever(s) ENT ENT ED: Denies ear pain Cardiovascular Cardiovascular: Denies chest pain Respiratory/Chest Respiratory/Chest: Denies cough or dyspnea Gastrointestinal Gastrointestinal: Reports abdominal pain, diarrhea and nausea; Denies constipation, melena or vomiting Genitourinary Genitourinary ED: Denies dysuria or hematuria Musculoskeletal Musculoskeletal: Denies arthralgias or back pain Integumentary Denies abscess Neurologic Neurologic: Denies headache(s) Psychiatric Psychiatric: Denies anxiety or depression Endocrine Endocrinology: Denies polydipsia, polyphagia or polyuria Hematologic/Lymphatic Hematologic/Lymphatic: Denies easy bleeding, easy bruising or lymphadenopathy Allergic/Immunologic Allergic/Immunologic ED: Denies mouth swelling, tongue swelling or urticaria EXAM Physical Exam Narrative Exam Narrative: 59-year-old male sitting upright in bed. Vital signs stable his pressures mildly low at 99/48. He does not look septic he has no distress. H EENT exam pupils round react light. Moist mutes members. Neck nontender. No lymphadenopathy. Back nontender. Lungs clear to auscultation. Heart regular rhythm rate about 110 no murmur. Chest wall ribs nontender. Abdomen soft nondistended normal bowel sounds without peritoneal signs. Left upper quadrant left-sided tenderness. No obstruction. No hernia or mass. No pulsatile mass. No right upper or right lower quadrant tenderness. Moving all 4 extremities. 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 He is awake alert. He is answering questions following commands. He has no focal motor deficits. Const Vital Signs: 08/04/25 21:02 08/04/25 22:07 08/04/25 22:30 Temperature 98.9 F Temperature Source Oral Pulse Rate 110 H 99 98 Respiratory Rate 20 H 14 18 Blood Pressure 99/48 L 103/55 L 141/73 H Blood Pressure Mean 65 71 95 Pulse Ox 96 98 98 Oxygen Delivery Method Room Air Room Air Room Air 08/04/25 23:53 08/05/25 00:00 Temperature 98.2 F Temperature Source Pulse Rate 89 89 Respiratory Rate 16 16 Blood Pressure 145/63 H 128/58 H Blood Pressure Mean 90 81 Pulse Ox 96 96 Oxygen Delivery Method Room Air MDM MDM MDM Narrative Medical decision making narrative: 59-year-old male abdominal pain with possibly dark stool. I did a rectal exam stool currently is brown is not black or melanotic at this time. CAT scan labs will be obtained. He will be given fentanyl for pain and Zofran for nausea. He does have an allergy to CAT scan dye I will give him Benadryl and Solu-Medrol. Patient was pretreated due to allergy to CT dye. When he went over the CAT scan he decided he did not want the CAT scan dye. I went over and talk to him. He primarily did not want it because of his transplants. CT abdomen and pelvis to be done without contrast. Recent labs from the clinic over the last several months and also a week ago showed a drop in his hemoglobin from 14.9 months ago to 12.5 a week ago to 10 today. He will be admitted for further evaluation of possible GI bleed. Patient will be started on Protonix. He will be typed and crossed but not transfused due to his hemoglobin being 10 and his vital signs being stable. Patient is doing well around 12:15 AM. He is resting comfortably. We are awaiting admission. Awaiting final CT read. He and I and his family have discussed his test results and concern for possible GI bleed. History & Record Review Discussion w/independent historian: Patient and Family Additional record(s) reviewed:: Prior outpatient record and Prior ED visit Lab Data Attestation: I reviewed the patient's lab results. Lab results narrative: CBC shows a white count 8.4. H&H 10.3 and 32. Platelets 220. I reviewed his recent labs on MyChart from the [facility]. A week ago his hemoglobin was 12.5. Several months ago his hemoglobin was 14.9. There is been a significant drop. He will be admitted for further evaluation for possible GI bleed. Electrolytes show sodium 132. Gap 11. Normal BUN of 8 creatinine 0.9. Glucose 153. Liver enzymes unremarkable. UA normal. No white or red cells. Only rare bacteria and no nitrites. Labs: Laboratory Results - last 24 hr 08/04/25 08/04/25 08/04/25 22:10 22:10 22:21 WBC 8.4 RBC 4.72 Hgb 10.3 L Hct 32.8 L MCV 69.5 L MCH 21.8 L MCHC 31.4 L RDW Std Deviation 37.9 RDW Coeff of Jairo 15.2 H Plt Count 220 MPV 9.8 Immature Gran % (Auto) 0.800 Neut % (Auto) 69.1 Lymph % (Auto) 18.9 L Pershing % (Auto) 9.3 Eos % (Auto) 1.2 Baso % (Auto) 0.7 Absolute Neuts (auto) 5.8 Absolute Lymphs (auto) 1.58 Nucleated RBC % 0 Sodium 132 L Potassium 3.6 Chloride 97 L Carbon Dioxide 23.5 Anion Gap 11 BUN 8 Creatinine 0.92 Estim Creat Clear Calc 85.39 Est GFR (MDRD) Non-Af 95 BUN/Creatinine Ratio 9.1 L Glucose 153 H Calcium 8.4 Total Bilirubin 0.36 AST 24 ALT 10 Alkaline Phosphatase 87 Total Protein 5.9 Albumin 3.3 L Globulin 2.5 Albumin/Globulin Ratio 1.3 Amylase Cancelled 15 L Lipase 14 Urine Color Straw Urine Clarity Clear Urine pH 6.5 Ur Specific [place] 1.005 Urine Protein 15 H Urine Glucose (UA) Normal Urine Ketones Negative Urine Occult Blood Negative Urine Nitrite Negative Urine Bilirubin Negative Urine Urobilinogen Normal Ur Leukocyte Esterase Negative Urine RBC 0 SEEN Urine WBC 0-5 SEEN Ur Squamous Epith Cells 0-5 SEEN Urine Bacteria RARE Urine Mucus 0 SEEN Blood Type O POSITIVE Antibody Screen NEGATIVE Discharge Plan Dx/Rx/DC Orders Clinical Impression: Abdominal pain, Black stool, Anemia, GI bleed, History of pancreas transplant, History of renal transplantation Disposition Disposition: Acute Care Hospital [facility]
--- OUTSIDE RECORDS SUMMARY | 2025-08-04 21:58 | XMS RPT_ITS | CCD ---
Author Organization [facility] Care Team Providers Care Accounts Supervisor Name Role Phone Tung Aguilar MD Primary Care Provider Dr. Tung Aguilar Primary Care Provider Dr. Tung Aguilar Referring Provider FriendDr. Hernandez Attending Provider [phone] FriendDr. Hernandez Other Provider [phone] Seth ACCOUNTS RECEIVABLE SUPERVISOR, ACCOUNTS RECEIVABLE SUPERVISOR-C Griselda Bearden Attending Provider [phone] Tung Aguilar MD Primary Care Provider Tung Aguilar MD Primary Care Provider LESLI ALMANZA Referring Unavailable TUNG AGUILAR Primary Care Unavailable Tung Aguilar MD Primary Care Provider ISHA COLEMAN Attending Unavailabl TUNG Garces Referring Unavailable TUNG AGUILAR Primary Care Unavailable ISHA COLEMAN Attending Unavailabl TUNG Garces Primary Care Unavailable Dr. Tung Aguilar Primary Care Provider Dr. Tung Aguilar Referring Provider [phone] Seth ACCOUNTS RECEIVABLE SUPERVISOR, ACCOUNTS RECEIVABLE SUPERVISOR-C Griselda Bearden Attending Provider [phone] Hernandez Attending Provider [phone] Hernandez Other Provider [phone] SANDRINE JULIEN Referring Unavailable TUNG AGUILAR Primary Care Unavailable Tung Aguilar Primary Care Unavailable David Barraza Attending Unavailable Tung Aguilar Referring Unavailable David Barraza Attending Unavailable Tung Aguilar Referring Unavailable Tung Aguilar Primary Care Unavailable FriendDavid Consulting Unavailable Tres Arroyos, Tung Primary Care Unavailable Friend, David Attending Unavailable Lauren, Tung Referring Unavailable Friend, David Attending Unavailable Friend, David Consulting Unavailable Tres Arroyos, Tung Referring Unavailable Lauren, Tung Primary Care Unavailable Tres Arroyos, Tung Primary Care Unavailable Friend, David Attending Unavailable Lauren, Tung Referring Unavailable Tres Arroyos, Tung Primary Care Unavailable Friend, David Attending Unavailable Lauren, Tung Referring Unavailable Lauren, Tung Primary Care Unavailable Tres Arroyos, Tung Referring Unavailable Seth ACCOUNTS RECEIVABLE SUPERVISOR, Griselda Bearden Attending Unavailable Lauren Tung POTTS Primary Care Provider Haagen AIRLINE CUSTOMER SERVICE AGENT.GERIATRIC SOCIAL WORKER Leticia Unavailable Suppan AIRLINE CUSTOMER SERVICE AGENT.GERIATRIC SOCIAL WORKER, Alicia A Unavailable [phone] Suppan AIRLINE CUSTOMER SERVICE AGENT.GERIATRIC SOCIAL WORKER, Alicia A Unavailable TUNG AGUILAR Attending Unavailable LAUREN, TUNG Jordan Primary Care Unavailable LARD, MEHRAN Yin Referring Unavailable LAUREN, TUNG Jordan Primary Care Unavailable LETICIA JASSO Attending Unavailable LAUREN, TUNG Jordan Primary Care Unavailable LAUREN, TUNG Jordan Primary Care Unavailable SUPPAN, ALICIA A Referring Unavailable LAUREN, TUNG Jordan Primary Care Unavailable SUPPAN, ALICIA A Referring Unavailable LAUREN, TUNG Jordan Primary Care Unavailable SUPPAN, ALICIA A Attending Unavailable LAUREN, TUNG Jordan Primary Care Unavailable LARD, MEHRAN Yin Referring Unavailable LAUREN, TUNG Jordan Primary Care Unavailable LAUREN, TUNG Jordan Attending Unavailable LAUREN, TUNG Jordan Primary Care Unavailable LARD, MEHRAN Yin Referring Unavailable LAUREN, TUNG Jordan Primary Care Unavailable LARD, MEHRAN Yin Attending Unavailable LAUREN, TUNG J Primary Care Unavailable LARD, MEHRAN L Referring Unavailable LAUREN, TUNG Jordan Primary Care Unavailable Allergies Allergy Classification Reported Allergen(s) Allergy Type Date of Onset Reaction(s) Facility (20 sources) Doxazosin; Translations: [DOXAZOSIN] Drug Allergy 6 GI Upset [facility] Work Phone: (20 sources) Doxycycline; Translations: [DOXYCYCLINE] Drug Allergy 0 [facility] (9 sources) Penicillins; Translations: [PENICILLINS] Propensity to adverse reactions 3 [facility] (3 sources) Iodine Drug Allergy 2 [facility] (20 sources) Penicillins Propensity to adverse reactions 3 [facility] (1 source) Penicillins Propensity to adverse reactions 3 Rash [facility] (1 source) Doxazosin Drug Allergy 3 [facility] (1 source) Doxycycline Drug Allergy 3 [facility] (1 source) Iodine Drug Allergy 3 [facility] (1 source) Penicillins Drug allergy (disorder) 3 [facility] (5 sources) Penicillins Propensity to adverse reactions 3 [facility] Medications Current Medications Medication Drug Class(es) Dates Sig (Normalized) Sig (Original) cefuroxime 500 mg oral tablet (2 sources) Cephalosporin Antibacterial Start: 08-22-2024 End: 09-01-2024 take 1 tablet by mouth twice daily cefUROXime (CEFTIN) 500 mg tablet Take 1 tablet by mouth two times a day for 10 days. 20 tablet 08/22/2024 09/01/2024 Active clotrimazole 10 mg/ml topical cream (3 sources) Azole Antifungal Start: 09-08-2024 End: 09-15-2024 clotrimazole (LOTRIMIN) 1 % cream Apply to affected area two times a day for 7 days. 12 g 09/08/2024 09/15/2024 Active Start: 08-22-2024 End: 08-29-2024 clotrimazole (LOTRIMIN) 1 % cream Apply to affected area two times a day for 7 days. 12 g 08/22/2024 08/29/2024 Active ammonium lactate 120 mg/ml topical lotion (7 sources) Start: 07-21-2024 ammonium lactate (LAC-HYDRIN) 12 % lotion Apply to affected area as needed for dry skin. 07/21/2024 Active mometasone furoate 1 mg/ml topical cream (7 sources) Corticosteroid Start: 10-22-2024 mometasone (ELOCON) 0.1 % cream Indications: Dermatitis Apply 1 application to affected area once daily. 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 DIAGNOSIS CODE: Z94.0, KIDNEY TRANSPLANT TAKE 1 TABLET BY SHABBIR TH TWICE DAILY Take 1 tablet by shabbir th two times a day. sildenafil 100 mg oral tablet (20 sources) Phosphodiesterase 5 Inhibitor Start: 04-19-2024 End: 04-19-2025 sildenafil (VIAGRA) 100 mg tablet Indications: Erectile dysfunction, unspecified erectile dysfunction type Take 1 tablet by mouth as needed. 6 tablet 11 04/19/2024 04/19/2025 Active Start: 10-16-2021 End: 10-16-2022 sildenafil (VIAGRA) 100 mg t ablet Indications: Erectile dysfunction, unspecified erectile dysfunction type Take 1 tablet by mouth as needed. 6 tablet 11 10/16/2021 10/16/2022 Active Comment on above: Take 1 tablet by shabbir th as needed. tacrolimus 1 mg oral capsule (20 sources) Calcineurin Inhibitor Immunosuppressant Start: take 3 capsules by mouth once daily in the morning, then take 2 capsules by mouth in the evening tacrolimus IR (PROGRAF) 1 mg capsule Indications: Need for prophylactic immunotherapy TAKE 3 CAPSULES BY MOUTH EVERY DAY IN THE MORNING AND TAKE 2 CAPSULES IN THE EVENING 450 capsule 4 03/18/2025 Active Start: 01-29-2024 End: 03-18-2025 take 1 capsule by mouth twice daily tacrolimus IR (PROGRAF) 1 mg capsule Indications: Need for prophylactic immunotherapy Take (2) capsules by mouth twice daily 450 capsule 4 01/29/2024 03/18/2025 Discontinued Start: 10-06-2022 End: 01-29-2024 take 3 capsules by mouth once daily in the morning, then take 2 capsules by mouth in the evening tacrolimus IR (PROGRAF) 1 mg capsule Indications: Need for prophylactic immunotherapy TAKE 3 CAPSULES BY MOUTH EVERY DAY IN THE MORNING AND TAKE 2 CAPSULES IN THE EVENING 450 capsule 4 12/29/2023 01/29/2024 Discontinued Start: 09-26-2021 take 3 capsules by m outh once daily in the morning, then take 2 capsules by mouth in the evening tacrolimus IR (PROGRAF) 1 mg capsule Indications: Need for prophylactic immunotherapy TAKE 3 CAPSULES BY MOUTH EVERY DAY IN THE MORNING AND TAKE 2 CAPSULES IN THE EVENING 450 capsule 3 09/26/2021 Active Start: 07-10-2020 take 3 mg by mouth once daily Tacrolimus Active 3 MG PO DAILY@0800 July 10, 2020 12:00am Start: 07-10-2020 take 2 mg by mouth once daily Tacrolimus Active 2 MG PO DAILY@1999July 10, 2020 12:00am Comment on above: TAKE 3 CAPSULES BY M OUTH EVERY DAY IN THE MORNING AND TAKE 2 CAPSULES IN THE EVENING Completed/Discontinued Medications Medication Drug Class(es) Dates Sig (Normalized) Sig (Original) acetaminophen 500 mg oral tablet (6 sources) Start: 08-02-2020 End: 04-19-2022 take 1000 mg by mouth every six hours as needed Acetaminophen Discontinued 1000 MG PO EVERY 6 HOURS NEEDED August 02, 2020 12:00am April 19, 2022 2:21pm Start: 07-24-2020 End: 08-02-2020 take 650 mg by mouth every six hours as needed Acetaminophen Discontinued 650 MG PO EVERY 6 HOURS NEEDED July 24, 2020 12:00am August 02, 2020 1:51pm amylase [id number] unt / lipase [id number] unt / protease [id number] unt delayed release oral capsule (20 sources) Start: 07-29-2022 End: 01-29-2024 take 1 tablet by mouth three times daily at mealtime CREON 36,000-114,000- 180,000 unit delayed release capsule TAKE 1 TABLET BY MOUTH 3 TIMES DAILY WITH MEALS AND/OR WITH SNACKS 0 07/30/2022 01/29/2024 Discontinued (Course of therapy completed) Comment on above: TAKE 1 TABLET BY MOUTH 3 TIMES DAILY WIT H MEALS AND/OR WITH SNACKS aspirin 325 mg oral tablet (1 source) Platelet Aggregation Inhibitor, Nonsteroidal Anti-inflammatory Drug Start: 04-21-2009 End: 01-10-2022 take 1 tablet by mouth once daily ASPIRIN 325 MG TAB 1 Tab ORAL DAILY 0 0 04/21/2009 01/10/2022 Discontinued (Discontinued by another Health Care Provider) Comment on above: 1 Tab ORAL DAILY Food Supplemt, Lactose-Reduced (6 sources) Start: 07-24-2020 End: 08-02-2020 take 1 mL by mouth four times daily Food Supplemt, Lactose-Reduced Discontinued 120 ML PO 4 TIMES DAILY July 24, 2020 9:08pm August 02, 2020 1:52pm Start: 07-24-2020 End: 07-24-2020 take 1 mL by mouth four times daily Food Supplemt, Lactose-Reduced Discontinued 120 ML PO 4 TIMES DAILY July 24, 2020 12:00am July 24, 2020 9:08pm lidocaine hydrochloride 20 mg/ml mucous membrane topical solution (13 sources) Antiarrhythmic, Amide Local Anesthetic Start: 09-07-2021 End: 10-17-2022 take 15 mL by mouth every three hours as needed lidocaine viscous (LIDOCAINE VISCOUS) 2 % solution Take 15 mL by mouth every 3 hours as needed for pain. 120 mL 1 09/07/2021 10/17/2022 Discontinued (Other) Comment on above: Take 15 mL by mouth every 3 hours as needed for pain. metoclopramide 5 mg oral tablet (1 source) Dopamine-2 Receptor Antagonist Start: 05-31-2022 End: 08-13-2022 take 5 mg by mouth 30 minutes before mealtime Metoclopramide Hcl Discontinued 5 MG PO before meals May 31, 2022 12:00am August 13, 2022 9:24am administer 30 minutes before meals omeprazole 20 mg delayed release oral capsule (20 sources) Proton Pump Inhibitor Start: 12-26-2021 End: 03-07-2023 take 40 mg by mouth once daily Omeprazole Active 40 MG PO DAILY March 07, 2023 12:16pm Start: 09-10-2021 End: 06-06-2023 take 1 capsule by mouth once daily omeprazole (PRILOSEC) 20 mg capsule Indications: Sore throat Take (2) capsules by mouth daily 0 01/10/2022 06/06/2023 Discontinued Comment on above: Take (2) capsules by mouth daily TAKE 1 CAPSULE BY [facility] DAILY BEFORE BREAKFAST. 1/2 HR BEFORE MEAL. oxyCODONE hydrochloride 5 mg oral tablet (11 sources) Opioid Agonist Start: 3 End: take 1 tablet by mouth every six hours as needed for pain oxyCODONE IR (ROXICODONE) 5 mg immediate release tablet Indications: Post-op pain Take 1 tablet by mouth every 6 hours as needed for pain. 15 tablet 0 06/05/2023 01/29/2024 Discontinued (Course of therapy completed) Start: 08-02-2020 End: 08-02-2020 take 5 mg by mouth every six hours as needed Oxycodone Hcl Discontinued 5 MG PO EVERY 6 HOURS NEEDED 12 August 02, 2020 August 02, 2020 1:52pm Start: 08-02-2020 End: 08-02-2020 take 5 mg by mouth every six hours as needed Oxycodone Hcl Discontinued 5 MG PO EVERY 6 HOURS NEEDED 12 August 02, 2020 August 02, 2020 1:52pm Start: 08-02-2020 End: 08-02-2020 take 5 mg by mouth every six hours as needed Oxycodone Hcl Discontinued 5 MG PO EVERY 6 HOURS NEEDED 09 07August 02, 2020 August 02, 2020 1:52pm Comment on above: Take 1 tablet by shabbir th every 6 hours as needed for pain. pantoprazole 40 mg delayed release oral tablet (8 sources) Proton Pump Inhibitor Start: 06-06-20 End: 01-29-20 take 1 tablet by mouth once daily pantoprazole DR (PROTONIX) 40 mg tablet Take 1 tablet by mouth once daily. 30 tablet 2 06/06/2023 01/29/2024 Discontinued (Course of therapy completed) Comment on above: Take 1 tablet by shabbir th once daily. sucralfate 100 mg/ml oral suspension (8 sources) Aluminum Complex Start: 06-06-20 End: 01-29-20 take 10 mL by mouth four times daily sucralfate (CARAFATE) 100 mg/mL suspension Take 10 mL by mouth four times daily. 1000 mL 1 06/06/2023 01/29/2024 Discontinued (Course of therapy completed) Comment on above: Take 10 mL by mouth four times daily. sulfamethoxazole 800 mg / trimethoprim 160 mg oral tablet (9 sources) Dihydrofolate Reductase Inhibitor Antibacterial, Sulfonamide Antimicrobial Start: 09-09-20 End: 10-17-19 take 1 tablet by mouth twice daily sulfamethoxazole-tr imethoprim (BACTRIM DS,SEPTRA DS) 800-160 mg per tablet Indications: bacterial urinary tract infection Take 1 tablet by mouth twice daily. 14 tablet 0 09/09/2022 10/17/2022 Discontinued (Other) Start: 07-24-2020 End: 08-02-2020 take 1 tablet by mouth twice daily at mealtime Sulfamethoxazole-Trimethoprim Discontinu ed 1 TABLET PO TWICE DAILY WITH MEALS July 24, 2020 9:08pm August 02, 2020 1:52pm Comment on above: Take 1 tablet by shabbir th twice daily. Problems Active Problems Problem Classification Problem Date Documented Da te Episodic/Chronic Acute and unspecified renal failure (20 sources) Renal failure syndrome; Translations: [Unspecified kidney failure] Onset: 06-20-2006 04-15-2008 Chronic Chronic kidney disease (5 sources) End-stage renal disease; Translations: [End stage renal disease] Onset: 04-20-2008 02-27-2022 Chronic Chronic ulcer of skin (9 sources) Non-pressure chronic ulcer of other part of left foot with necrosis of bone; Translations: [Ulcer of left foot with necrosis of bone] 11-17-2020 Chronic Coagulation and hemorrhagic disorders (14 sources) Platelet count below reference range; Translations: [Thrombocytopenia, unspecified] Onset: 10-22-2024 Chronic Deficiency and other anemia (1 source) Anemia, unspecified; Translations: [Anemia, unspecified type] Onset: 07-28-2025 Episodic Diabetes mellitus with complications (20 sources) Type 2 diabetes mellitus; Translations: [Type 2 diabetes mellitus with diabetic polyneuropathy] Onset: 10-08-2005 Resolved: 08-16-2012 Chronic Diabetes mellitus without complication (20 sources) Type 1 diabetes mellitus; Translations: [Type 1 diabetes mellitus without complications] Onset: 09-17-2005 Resolved: 08-16-2012 04-07-2018 Chronic Diseases of mouth; excluding dental (1 source) Geographic tongue; Translations: [Geographic tongue] 08-23-2024 Episodic Disorders of lipid metabolism (20 sources) Pure hypercholesterolemia; Translations: [Pure hypercholesterolemia, unspecified] Onset: 10-22-2005 04-15-2008 Chronic Esophageal disorders (20 sources) Gastro-esophageal reflux disease without esophagitis; Translations: [Esophageal reflux] Onset: 01-01-2022 Chronic Esophageal disorders (5 sources) Pain in esophagus; Translations: [Pain of esophagus] Episodic Essential hypertension (20 sources) Essential hypertension; Translations: [Essential (primary) hypertension] Onset: 09-17-2005 02-20-2018 Chronic Genitourinary symptoms and ill-defined conditions (1 source) Other microscopic hematuria; Translations: [Microscopic hematuria] Onset: 07-28-2025 Episodic Immunity disorders (20 sources) Immunosuppression; Translations: [Immunodeficiency, unspecified] Onset: 04-17-2023 04-17-2023 Chronic Other aftercare (4 sources) Transplant follow-up; Translations: [Encounter for aftercare following other organ transplant] Chronic Other aftercare (1 source) Encounter for aftercare following other organ transplant; Translations: [Aftercare following organ transplant] Onset: 02-07-2025 Chronic Other aftercare (1 source) Drug therapy finding; Translations: [Other [facility] (current) drug therapy] Episodic Other circulatory disease (1 source) Orthostatic hypotension; Translations: [Orthostatic hypotension] 02-07-2025 Episodic Other circulatory disease (1 source) Other specified symptoms and signs involving the circulatory and respiratory systems; Translations: [Abnormal lung sounds] Onset: 08-02-2025 Episodic Other circulatory disease (2 sources) Orthostatic hypotension; Translations: [Orthostasis] Onset: 02-07-2025 Episodic Other connective tissue disease (1 source) Unspecified symptoms and signs involving the nervous system; Translations: [Abnormal neurological exam] Onset: 08-03-2025 Episodic Other endocrine disorders (20 sources) History of transplantation of pancreas; Translations: [Pancreas transplant status] Onset: 04-20-2008 Resolved: 08-30-2020 04-20-2008 Chronic Other endocrine disorders (1 source) Pancreas transplant status; Translations: [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 ([facility])] Onset: 04-20-2008 Chronic Other gastrointestinal disorders (2 sources) Dysphagia, unspecified; Translations: [Dysphagia, unspecified] Episodic Other injuries and conditions due to external causes (3 sources) Delayed healing of wound; Translations: [Other injury of unspecified body region, subsequent encounter] 08-30-2020 Episodic Other injuries and conditions due to external causes (2 sources) Trichobezoar in stomach; Translations: [Foreign body in stomach, initial encounter] 04-19-2022 Episodic Other injuries and conditions due to external causes (1 source) Foreign body in stomach, initial encounter; Translations: [Foreign body in stomach] Episodic Other injuries and conditions due to external causes (1 source) Foreign body of alimentary tract, part unspecified, initial encounter; Translations: [Bezoar, initial encounter] Onset: 06-02-2023 Episodic Other nervous system disorders (20 sources) Chronic pain; Translations: [Other chronic pain] Onset: 01-18-2015 01-18-2015 Chronic Other non-traumatic joint disorders (20 sources) Joint derangement; Translations: [Other specific joint derangements of unspecified hand, not elsewhere classified] Onset: 11-06-2009 11-06-2009 Chronic Other screening for suspected conditions (not mental disorders or infectious disease) (3 sources) Ultrasound scan abnormal; Translations: [Abnormal findings on diagnostic imaging of other specified body structures] Onset: 09-09-2022 Chronic Other screening for suspected conditions (not mental disorders or infectious disease) (15 sources) Patient encounter status; Translations: [Encounter for screening for other disorder] Onset: 08-12-2022 Episodic Other skin disorders (3 sources) Localized infection of skin AND/OR subcutaneous tissue; Translations: [Changes in skin texture] 10-11-2020 Episodic Other skin disorders (1 source) Eruption; Translations: [Rash and other nonspecific skin eruption] 08-22-2024 Episodic Other upper respiratory infections (1 source) Sore throat symptom; Translations: [Acute pharyngitis, unspecified] Episodic Peripheral and visceral atherosclerosis (3 sources) Peripheral vascular disease; Translations: [Peripheral vascular disease, unspecified] 10-11-2020 Chronic Residual codes; unclassified (20 sources) Prevention status; Translations: [Encounter for other specified prophylactic measures] Onset: 07-13-2012 07-13-2012 Episodic Screening and history of mental health and substance abuse codes (2 sources) Encounter for screening for depression; Translations: [Encounter for screening examination for other mental health and behavioral disorders] Onset: 05-11-2025 Episodic Syncope (1 source) Syncope and collapse; Translations: [Near syncope] Onset: 08-03-2025 Episodic Past or Other Problems Problem Classification Problem Date Documented Da te Episodic/Chronic Abdominal pain (1 source) Epigastric pain; Translations: [Epigastric pain] Onset: 08-07-2022 Episodic Allergic reactions (2 sources) Inflammatory dermatosis; Translations: [Dermatitis, unspecified] Onset: 10-22-2024 10-22-2024 Episodic Complication of device; implant or graft (20 sources) Complication associated with vascular device; Translations: [Other mechanical complication of other cardiac and vascular devices and implants, initial encounter] Onset: 08-26-2006 08-26-2006 Episodic Diseases of white blood cells (20 sources) Leukopenia; Translations: [Decreased white blood cell count, unspecified] Onset: 07-27-2008 Resolved: 04-17-2023 07-27-2008 Chronic Gastroduodenal ulcer (except hemorrhage) (20 sources) Gastric erosion; Translations: [Acute gastric ulcer without hemorrhage or perforation] Onset: 04-16-2022 Resolved: 10-17-2022 Episodic Infective arthritis and osteomyelitis (except that caused by tuberculosis or sexually transmitted disease) (20 sources) Osteomyelitis of left foot; Translations: [Osteomyelitis, unspecified] Onset: 10-17-2022 Resolved: 04-17-2023 10-17-2022 Chronic Malaise and fatigue (20 sources) Asthenia; Translations: [Other malaise] Onset: 10-17-2022 Resolved: 04-17-2023 10-17-2022 Episodic Mycoses (16 sources) Onychomycosis due to dermatophyte ; Translations: [Tinea unguium] Onset: 10-17-2022 Resolved: 10-17-2022 11-08-2020 Episodic Other aftercare (20 sources) Transplant follow-up; Translations: [Other [facility] (current) drug therapy] Onset: 06-05-2023 06-05-2023 Episodic Other connective tissue disease (20 sources) Dupuytren's contracture; Translations: [Palmar fascial fibromatosis [Dupuytren]] Onset: 08-24-2009 08-24-2009 Episodic Other connective tissue disease (16 sources) Dupuytren's disease; Translations: [Palmar fascial fibromatosis [Dupuytren]] Onset: 09-06-2009 09-06-2009 Episodic Other connective tissue disease (20 sources) Pain in limb; Translations: [Pain in unspecified limb] Onset: 11-06-2009 Resolved: 04-17-2023 11-06-2009 Episodic Other connective tissue disease (20 sources) Plantar fascial fibromatosis; Translations: [Plantar fascial fibromatosis] Resolved: 04-17-2023 02-13-2011 Episodic Other connective tissue disease (20 sources) Musculoskeletal fibromatosis; Translations: [Palmar fascial fibromatosis [Dupuytren]] Onset: 09-06-2009 09-06-2009 Episodic Other connective tissue disease (20 sources) History of osteomyelitis; Translations: [Personal history of other diseases of the musculoskeletal system and connective tissue] Onset: 04-17-2023 04-17-2023 Episodic Other connective tissue disease (1 source) Palmar fascial fibromatosis [Dupuytren]; Translations: [Dupuytren's disease] Onset: 09-06-2009 Episodic Other disorders of stomach and duodenum (20 sources) Gastroparesis syndrome; Translations: [Gastroparesis] Onset: 08-13-2022 Episodic Other disorders of stomach and duodenum (2 sources) Gastroparesis; Translations: [Gastroparesis] Onset: 08-13-2022 Episodic Other endocrine disorders (13 sources) H/O: tissue/organ recipient; Translations: [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] Onset: 04-05-2008 Resolved: 08-16-2012 08-16-2012 Chronic Other gastrointestinal disorders (16 sources) Dysphagia; Translations: [Dysphagia, unspecified] Onset: 04-12-2022 Resolved: 10-17-2022 02-27-2022 Episodic Other infections; including parasitic (20 sources) H/O: viral illness; Translations: [Personal history of other infectious and parasitic diseases] Onset: 12-29-2008 08-30-2020 Episodic Other infections; including parasitic (16 sources) Personal history of other infectious and parasitic diseases; Translations: [Personal history of other infectious and parasitic diseases] Onset: 12-29-2008 08-30-2020 Episodic Other injuries and conditions due to external causes (20 sources) Foreign body in stomach, sequela; Translations: [Late effect of foreign body in orifice] Onset: 04-16-2022 Resolved: 04-19-2024 Episodic Other injuries and conditions due to external causes (13 sources) Bezoar; Translations: [Foreign body of alimentary tract, part unspecified, initial encounter] Onset: 06-04-2023 05-30-2023 Episodic Other injuries and conditions due to external causes (6 sources) Foreign body in small intestine, initial encounter; Translations: [Foreign body in intestine and colon] Onset: 06-04-2023 Resolved: 10-20-2023 06-04-2023 Episodic Other nervous system disorders (20 sources) Neuropathy; Translations: [Other hereditary and idiopathic neuropathies] Onset: 10-17-2022 Resolved: 04-17-2023 10-17-2022 Chronic Other non-traumatic joint disorders (20 sources) Hand joint stiff; Translations: [Stiffness of unspecified hand, not elsewhere classified] Onset: 10-26-2012 Resolved: 10-17-2022 10-26-2012 Episodic Residual codes; unclassified (20 sources) Complex regional pain syndrome, type II; Translations: [Pain, unspecified] Onset: 05-09-2014 05-09-2014 Episodic Skin and subcutaneous tissue infections (20 sources) Cellulitis and abscess of lower limb; Translations: [Cellulitis of unspecified part of limb] Onset: 10-17-2022 Resolved: 10-17-2022 07-24-2020 Episodic Spondylosis; intervertebral disc disorders; other back problems (20 sources) Neck pain; Translations: [Cervicalgia] Onset: 09-10-2013 Resolved: 04-17-2023 09-10-2013 Episodic Unclassified (3 sources) Left forefoot cellulitis 07-12-2022 Unclassified (3 sources) Left forefoot ulcer 07-21-2022 Results Test Name Value Interpretation Reference Range Facility CT BRAIN WO IVCONon 08-03-20 CT BRAIN WO IVCON * * *Final Report* * * DATE OF EXAM: Aug 03 2025 8:23AM [facility] 0504 - CT BRAIN WO IVCON / PROCEDURE REASON: multiple diagnoses * * * * Physician Interpretation * * * * EXAMINATION: CT BRAIN WO IVCON CLINICAL HISTORY: Ataxia, falls, near syncope, abnormal neuro check. TECHNIQUE: Serial axial images without IV contrast were obtained from the vertex to the foramen magnum. MQ: CTBWO_3 CT Radiation dose: Integrated Dose-Length Product (DLP) for this visit = 719 mGy*cm CT Dose Reduction Employed: Automated exposure control(AEC) and iterative recon COMPARISON: None. RESULT: Localizer images: No additional findings. Post-operative change: None. Acute change: No evidence of an acute infarct or other acute parenchymal process. Hemorrhage: No evidence of acute intracranial hemorrhage. ECASS hemorrhagic transformation score: Not Applicable Mass Lesion / Mass Effect: There is no evidence of an intracranial mass or extraaxial fluid collection. No significant mass effect. Chronic change: None apparent. Parenchyma: There is no significant volume loss. The brain parenchyma is otherwise within normal limits for age. Ventricles: The ventricles are within normal limits of size and configuration for age. Paranasal sinuses and skull base: The visualized paranasal sinuses are grossly clear. The skull base and imaged soft tissues are unremarkable. IMPRESSION: No CT evidence of acute intracranial abnormality. Accessories Repairer: TC Transcribe Date/Time: Aug 03 2025 8:38A Dictated by : VALDO RUCKER MD This examination was interpreted and the report reviewed and electronically signed by: VALDO RUCKER MD on Aug 03 2025 8:49AM EST [id number] Normal [facility] CNOVon 08-02-2025 CNOV Office Visit (FAMPWS ) HOMAR FALLON ([id number]) 1965 M Date Time Provider Department 08/02/25 8:40 AM [facility] During your visit today, we recorded the following information about you: Pulse Blood pressure Weight 96/minute 148/50 80.3 kg Alicia Chen APRN.GERIATRIC SOCIAL WORKER 08/02/2025 10:13 AM Addendum This is a 59 year old male who presents today with: Patient presents with: Fall HISTORY OF PRESENT ILLNESS: Homar Fallon is a 59 year old male. Patient presents with: Fall Periods of extreme weakness, unsteadiness that lasts about 5 min. Has fallen. Gait has been unsteady. Homar Fallon is a 59-year-old male with a history of heart transplant in 2013, accompanied by his sister who is providing additional history, presenting with episodes of weakness and near-falls. Episodes of Weakness and Near-Falls: - Onset approximately 3 months ago. - Three episodes reported: - First episode at home 3 months ago, initially dismissed. - Second episode at [facility] 3 weeks ago, resulting in a fall with head and leg injury. - Most recent episode last Friday, witnessed by sister and ; legs began to shake, felt very weak, and was assisted to a chair by . - Episodes last about 5 minutes, with recovery to baseline afterward. - No complete loss of consciousness or bowel/bladder function reported. - No associated sweating or pallor observed. - No coughing or prolonged sitting prior to episodes. - Denies chest pain, palpitations, or dyspnea. - Nocturnal dyspnea or orthopnea denied. - No edema in lower extremities. - No nausea or emesis. - No blurred or double vision. - No lumps, bumps, or swelling in the neck. - No cough or wheeze. - No headaches. - No history of smoking; exposed to secondhand smoke. - Sister reports recent subtle changes in eye tracking and balance. - Sister notes unsteadiness when standing up, with occasional swaying. - Sister reports Homar lives alone and is active, not sedentary. Anemia: - Mild anemia noted. - Recently started on iron supplementation. - Experienced diarrhea for a couple of days after starting iron, now resolved. - Reports difficulty sleeping and abdominal discomfort on and Friday, unsure if related to iron supplementation. 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 Disturbance of skin sensation Dupuytren's contracture of foot Kidney replaced by transplant ([facility]) 04/2008 Pancreas transplant 04/2008 Type II or unspecified type diabetes mellitus without mention of complication, not stated as uncontrolled Unspecified essential hypertension PAST SURGICAL HISTORY Procedure Laterality Date AMPUTATION FOREARM THROUGH RADIUS AND ULNA 1991 left ARTERIOVENOUS ANASTOMOSIS OPEN DIRECT 07/08/06 RIGHT FOREARM AV FISTULA CREATION BALLN ANGIOPLASTY,PERC VENOUS 09/08/06 BALLN ANGIOPLASTY,PERC VENOUS 10/08/06 FISTULOGRAM BALLN ANGIOPLASTY,PERC VENOUS 12/05/06 RIGHT BALLN ANGIOPLASTY,PERC VENOUS 01/19/07 BALLN ANGIOPLASTY,PERC VENOUS 04/01/07 BALLN ANGIOPLASTY,PERC VENOUS 10/14/07 COLONOSCOPY FLX DX W/COLLJ SPEC WHEN PFRMD 01/12/2003 Colonoscopy INSJ FRANK VAD REQ 2 CATH 2 SITS W/O SUBQ PORT/ENROLLMENT SERVICES DEAN 09/18/06 LEFT INTERNAL JUGULAR PAST SURGICAL HISTORY OF 07/2008 OS for DM/"macular degeneration" PAST SURGICAL HISTORY OF kidney and pancreas transplant 2007 PAST SURGICAL HISTORY OF 1991 LEFT HAND AMPUTEE PAST SURGICAL HISTORY OF [address] CATH AV DIALYSIS SHUNT 09/08/06 PLACE CATH AV DIALYSIS SHUNT 10/08/06 PLACE CATH AV DIALYSIS SHUNT 12/05/[address] CATH AV DIALYSIS SHUNT 01/19/07 PLACE CATH AV DIALYSIS SHUNT 04/01/07 PLACE CATH AV DIALYSIS SHUNT 10/14/07 RMVL FRANK CVC W/O SUBQ PORT/ENROLLMENT SERVICES DEAN 02/06/07 Removal of left IJ tessio catheters TRANSCATH STENT INIT VESSEL,PERCUT 10/08/06 TRANSCATH STENT INIT VESSEL,PERCUT 01/19/07 ALLERGIES Doxazosin, Doxycycline, and Penicillins MEDICATIONS Current Outpatient Medications Medication Sig ferrous sulfate (IRON) 325 mg (65 mg iron) tablet Take 1 tablet by mouth two times a day. tacrolimus IR (PROGRAF) 1 mg capsule TAKE 3 CAPSULES BY MOUTH EVERY DAY IN THE MORNING AND TAKE 2 CAPSULES IN THE EVENING mycophenolate Mofetil (CELLCEPT) 500 mg tablet take 1 tablet by mouth twice a day ammonium lactate (LAC-HYDRIN) 12 % lotion Apply to affected area as needed for dry skin. mometasone (ELOCON) 0.1 % cream Apply 1 application to affected area once daily. No current facility-administered medications for this visit. FAMILY HISTORY Problem Relation Age of Onset Diabetes Mother Heart Mother Hypertension Father Diabetes Father Prostate Cancer Father age 60 Heart Paternal Grandfather Prostate Cancer Paternal Uncle Prostate Cancer Paternal Uncle SOCIAL HISTORY[1] REVI (more content not included)... Normal [facility] [id number] 08-02-2025 ECG01 Ventricular Rate : 9 2 BPM Atrial Rate : 92 BPM P-R Interval : 114 ms QRS Duration : 74 ms Q-T Interval : 352 ms QTC Calculation(Bazett) : 435 ms Calculated P [place] : 9 degrees Calculated R [place] : 21 degrees Calculated T [place] : 30 degrees NORMAL SINUS RHYTHM NORMAL ECG Confirmed by NITHYA DAIGLE MD ([id number]) on 08/03/2025 10:49:51 AM NAME : HOMAR FALLON PID : [id number] : 1965 Gender : Male Race : ORD : Procedure Date : Aug 02 2025 09:20:25 Edit Date : Aug 03 2025 10:50:01 Diagnosis: NORMAL SINUS RHYTHM NORMAL ECG Confirmed by NITHYA DAIGLE MD ([id number]) on 08/03/2025 10:49:51 AM Test Reason : Location : 185 : [facility] Overread By : NITHYA DAIGLE MD Edited By : NITHYA DAIGLE MD Referred By : MEHRAN URRUTIA Acquired by : Joanne Ragsdale [facility] XR CHEST 2V FRONTAL/LATon XR CHEST 2V FRONTAL/LAT * * *Final Report* * * DATE OF EXAM: Aug 02 2025 10:08AM [facility]OX [id number] - XR CHEST 2V FRONTAL/LAT / PROCEDURE REASON: Abnormal lung sounds * * * * Physician Interpretation * * * * EXAMINATION: CHEST RADIOGRAPH (2 VIEW FRONTAL and LATERAL) CLINICAL HISTORY: Abnormal lung sounds MQ: XC2_6 EXAM DATE/TIME: 08/02/2025 10:08 AM COMPARISON: 06/02/2023 RESULT: Lines, tubes, and devices: None. Lungs and pleura: No consolidation. No lung mass. No pleural effusion. No pneumothorax. Cardiomediastinal silhouette: Normal cardiomediastinal silhouette. Bones and soft tissues: Unremarkable. IMPRESSION: No acute radiographic abnormality. Accessories Repairer: PSCB Transcribe Date/Time: Aug 02 2025 10:10A Dictated by : HOMAR AGUIAR MD This examination was interpreted and the report reviewed and electronically signed by: HOMAR AGUIAR MD on Aug 02 2025 10:10AM EST [id number] Normal [facility] 07-29-2025 [facility] Telephone (FAMWS) HOMAR FALLON ([id number]) 1965 M Date Time Provider Department 07/29/25 [facility] During your visit today, we recorded the following information about you: Tung Aguilar MD 07/29/2025 12:12 PM Signed Has iron deficiency anemia. He never did the ifobt we had written for in the past. Have to rule out gi blood loss, especially with his hx of a bezoar, refer to gi Add iron. Recheck labs in one month. RoroeseMatthewaMELISSA 07/29/2025 1:14 PM Signed Patient notified. He has seen GI in the past. That physician had told him to come back to him if he ever needed. After talking to patient reviewed chart and looks like he saw Dr Peterson Julien. Could we help get him set up with him again please? Any Montelongo 07/30/2025 9:14 AM Signed 1st attempt left message to return call for the following:Patient notified. He has seen GI in the past. That physician had told him to come back to him if he ever needed. After talking to patient reviewed chart and looks like he saw Dr Peterson Julien. Could we help get him set up with him again please? Mei Stock 07/30/2025 9:39 AM Signed Patient scheduled first available location/time on 09/06/25; added to wait list. Dr. Julien does not see for DX: Iron deficiency anemia, unspecified iron deficiency anemia type [D50.9] This doctor does not come up in [facility]. Patient was willing to travel farther but [place] was too far and this is only place with sooner appointment. He will call Dr. Haines, another doctor that he saw in [place] and ask if he will see for this diagnosis. Please notify patient if something else needs to be done. Allergies As of Date: 07/29/2025 Noted Allergy Reaction DOXAZOSIN 04/28/2006 8 - GI Upset DOXYCYCLINE 07/20/2020 2 - Rash PENICILLINS 04/05/2003 Comments: rash Date Reviewed: 05/11/2025 Reviewed by: Tung Aguilar MD - Fully Assessed Reason for Visit: Results [95] Primary Visit Diagnosis:Iron deficiency anemia, unspecified iron deficiency anemia type [D50.9] Order(s):CONSULT TO GASTROENTEROLOGY [9010] Order #: [id number]: 1 FUTURE FERRITIN [SQFERR] Order #: [id number] FUTURE IRON AND TIBC [SQIRON] Order #: [id number] FUTURE COMPLETE BLOOD COUNT AND DIFFERENTIAL [SQCBCDIF] Order #: [id number] FUTURE ferrous sulfate (IRON) 325 mg (65 mg iron) tabletTake 1 tablet by mouth two times a day.Disp: 60 tabletRfl: 5 Prescriptions as of 08/01/2025 - ferrous sulfate (IRON) 325 mg (65 mg iron) tablet Take 1 tablet by mouth two times a day. - tacrolimus IR (PROGRAF) 1 mg capsule TAKE 3 CAPSULES BY MOUTH EVERY DAY IN THE MORNING AND TAKE 2 CAPSULES IN THE EVENING - ammonium lactate (LAC-HYDRIN) 12 % lotion Apply to affected area as needed for dry skin. - mometasone (ELOCON) 0.1 % cream Apply 1 application to affected area once daily. 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83] 08/16/2012 08/30/2020 Stiffness of joint, not elsewhere classified, h*10/26/2012 10/17/2022 Neck pain [M54.2] 09/10/2013 04/17/2023 Deafferentation pain [R52] 05/09/2014 Chronic pain [G89.29] 01/18/2015 05/11/2025 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, W44.F1XA] 04/16/2022 04/19/2024 Acute gastric erosion [K25.3] 04/16/2022 10/17/2022 Cellulitis of foot [L03.119] 10/17/2022 10/17/2022 Dysphagia, unspecified [R13.10] 04/12/2022 10/17/2022 Gastroesophageal reflux disease [K21.9] 01/01/2022 Gastroparesis [K31.84] 08/13/2022 Local infection of skin and subcutaneous tissue*10/17/2022 10/17/2022 Neuropathy [G62.9] 10/17/2022 04/17/2023 Onychomycosis due to dermatophyte [B35.1] 10/17/2022 10/17/2022 Osteomyelitis (HCC) [M86.9] 10/17/2022 10/17/2022 Osteomyelitis of left foot (HCC) [M86.9] 10/17/2022 04/17/2023 Polyneuropathy due to type 2 diabetes mellitus *10/17/2022 Weakness [R53.1] 10/17/2022 04/17/2023 Immunosuppression (HCC) [D84.9] 04/17/2023 History o (more content not included)... Normal [facility] ALBUMIN/CREATININE RATIO, UR INEon 07-28-2025 Albumin DL <= 20 mg/L (U) [Mass/Vol] mg/dL Normal [facility] Comment on above: Order Comment: Speci men Type: URINE SPECIMENOrdering Facility: [facility] Address: [address] [place] [address] Performed By: #### U ACR ####[facility] LABCLIA [id number] [place] [address] [place] Albumin/Creatinine (U) [Mass ratio] <12 Normal <30 [facility] Comment on above: Order Comment: Speci men Type: URINE SPECIMENOrdering Facility: [facility] Address: [address] [place] [address] Result Comment: Adul t Male and Female Nephrotic Criteria: <30 mg/g is considered normal to mildly increased 30-300 mg/g is considered moderately increased >300 mg/g is considered severely increased KDIGO. (2013). KDIGO 2012 Clinical Practice Guideline for the Evaluation and Management of Chronic Kidney Disease. Official Journal of the International Society of Nephrology, 3(1), 1-150. Performed By: #### U ACR ####[facility] LABCLIA [id number] [place] [address] [place] Creatinine (U) [Mass/Vol] 103.9 mg/dL Normal 20.0-300.0 [facility] Comment on above: Order Comment: Speci men Type: URINE SPECIMENOrdering Facility: [facility] Address: [address] [place] [address] Performed By: #### U ACR ####[facility] LABCLIA [id number] [place] [address] [place] Bacteria Ur Culton Bacteria identified Cx Nom (U) ORGANISM ID: 1 <10,000 CFU/ml Normal urogenital ana rosa Normal [facility] Comment on above: Performed By: #### 6 30-4 ####[facility] LABCLIA [id number] [place] [address] [place] CBC W Auto Differential pane l (Bld)on 07-28-2025 Basophils (Bld) [#/Vol] 0.03 10*3/uL Normal <0.11 [facility] Comment on above: Order Comment: Speci men Type: BLOOD SPECIMENOrdering Facility: [facility] Address: [address] [place] [address] Performed By: #### 5 7021-8 ####[facility] [id number] [place] [address] [place] Basophils/100 WBC (Bld) 0.4 % Normal [facility] Comment on above: Order Comment: Speci men Type: BLOOD SPECIMENOrdering Facility: [facility] Address: [address] [place] [address] Performed By: #### 5 7021-8 ####[facility] JOELGREGORY [id number] [place] [address] [place] Differential cell count method Nom (Bld) Auto Normal [facility] Comment on above: Order Comment: Speci men Type: BLOOD SPECIMENOrdering Facility: [facility] Address: [address] [place] [address] Performed By: #### 5 7021-8 ####[facility] [id number] [place] [address] [place] Eosinophils (Bld) [#/Vol] 0.06 10*3/uL Normal <0.46 [facility] Comment on above: Order Comment: Speci men Type: BLOOD SPECIMENOrdering Facility: [facility] Address: [address] [place] [address] Performed By: #### 5 7021-8 ####[facility] [id number] [place] [address] [place] Eosinophils/100 WBC (Bld) 0.9 % Normal [facility] Comment on above: Order Comment: Speci men Type: BLOOD SPECIMENOrdering Facility: [facility] Address: [address] [place] [address] Performed By: #### 5 7021-8 ####[facility] [id number] [place] [address] [place] Erythrocyte distribution width (RBC) [Ratio] 15.0 % Normal 11.5-15.0 [facility] Comment on above: Order Comment: Speci men Type: BLOOD SPECIMENOrdering Facility: [facility] Address: [address] [place] [address] Performed By: #### 5 7021-8 ####[facility] [id number] [place] [address] [place] Hematocrit (Bld) [Volume fraction] 41.3 % Normal 39.0-51.0 [facility] Comment on above: Order Comment: Speci men Type: BLOOD SPECIMENOrdering Facility: [facility] Address: [address] [place] [address] Performed By: #### 5 7021-8 ####[facility]ENTERJACKIE [id number] [place] [address] [place] Hemoglobin (Bld) [Mass/Vol] 12.5 g/dL Low 13.0-17.0 [facility] Comment on above: Order Comment: Speci men Type: BLOOD SPECIMENOrdering Facility: [facility] Address: [address] [place] [address] Performed By: #### 5 7021-8 ####[facility] [id number] [place] [address] [place] Immature granulocytes (Bld) [#/Vol] 0.03 10*3/uL Normal <0.10 [facility] Comment on above: Order Comment: Speci men Type: BLOOD SPECIMENOrdering Facility: [facility] Address: [address] [place] [address] Performed By: #### 5 7021-8 ####[facility] [id number] [place] [address] [place] Immature granulocytes/100 WBC (Bld) 0.4 % Normal [facility] Comment on above: Order Comment: Speci men Type: BLOOD SPECIMENOrdering Facility: [facility] Address: [address] [place] [address] Performed By: #### 5 7021-8 ####[facility] [id number] [place] [address] [place] Lymphocytes (Bld) [#/Vol] 1.21 10*3/uL Normal 1.00-4.00 [facility] Comment on above: Order Comment: Speci men Type: BLOOD SPECIMENOrdering Facility: [facility] Address: [address] [place] [address] Performed By: #### 5 7021-8 ####[facility] [id number] [place] [address] [place] Lymphocytes/100 WBC (Bld) 17.9 % Normal [facility] Comment on above: Order Comment: Speci men Type: BLOOD SPECIMENOrdering Facility: [facility] Address: [address] [place] [address] Performed By: #### 5 7021-8 ####[facility] [id number] [place] [address] [place] MCH (RBC) [Entitic mass] 21.7 pg Low 26.0-34.0 [facility] Comment on above: Order Comment: Speci men Type: BLOOD SPECIMENOrdering Facility: [facility] Address: [address] [place] [address] Performed By: #### 5 7021-8 ####[facility] [id number] [place] [address] [place] MCHC (RBC) [Mass/Vol] 30.3 g/dL Low 30.5-36.0 [facility] Comment on above: Order Comment: Speci men Type: BLOOD SPECIMENOrdering Facility: [facility] Address: [address] [place] [address] Performed By: #### 5 7021-8 ####[facility] [id number] [place] [address] [place] MCV (RBC) [Entitic vol] 71.6 fL Low 80.0-100.0 [facility] Comment on above: Order Comment: Speci men Type: BLOOD SPECIMENOrdering Facility: [facility] Address: [address] [place] [address] Performed By: #### 5 7021-8 ####[facility] LUZLIA [id number] [place] [address] [place] Monocytes (Bld) [#/Vol] 0.43 10*3/uL Normal <0.87 [facility] Comment on above: Order Comment: Speci men Type: BLOOD SPECIMENOrdering Facility: [facility] Address: [address] [place] [address] Performed By: #### 5 7021-8 ####[facility]ENTERLIA [id number] [place] [address] [place] Monocytes/100 WBC (Bld) 6.4 % Normal [facility] Comment on above: Order Comment: Speci men Type: BLOOD SPECIMENOrdering Facility: [facility] Address: [address] [place] [address] Performed By: #### 5 7021-8 ####[facility] [id number] [place] [address] [place] Neutrophils (Bld) [#/Vol] 5.00 10*3/uL Normal 1.45-7.50 [facility] Comment on above: Order Comment: Speci men Type: BLOOD SPECIMENOrdering Facility: [facility] Address: [address] [place] [address] Performed By: #### 5 7021-8 ####[facility]ITALWNCLIA [id number] [place] [address] [place] Neutrophils/100 WBC (Bld) 74.0 % Normal [facility] Comment on above: Order Comment: Speci men Type: BLOOD SPECIMENOrdering Facility: [facility] Address: [address] [place] [address] Performed By: #### 5 7021-8 ####[facility]ENTERLIA [id number] [place] [address] [place] Nucleated RBC (Bld) [#/Vol] 10*3/uL Normal <0.01 [facility] Comment on above: Order Comment: Speci men Type: BLOOD SPECIMENOrdering Facility: [facility] Address: [address] [place] [address] Performed By: #### 5 7021-8 ####[facility] [id number] [place] [address] [place] Nucleated RBC/100 WBC (Bld) [Ratio] 0.0 /100 WBC Normal [facility] Comment on above: Order Comment: Speci men Type: BLOOD SPECIMENOrdering Facility: [facility] Address: [address] [place] [address] Performed By: #### 5 7021-8 ####[facility] [id number] [place] [address] [place] Platelet mean volume (Bld) [Entitic vol] 9.8 fL Normal 9.0-12.7 [facility] Comment on above: Order Comment: Speci men Type: BLOOD SPECIMENOrdering Facility: [facility] Address: [address] [place] [address] Performed By: #### 5 7021-8 ####[facility] [id number] [place] [address] [place] Platelets (Bld) [#/Vol] 219 10*3/uL Normal 150-400 [facility] Comment on above: Order Comment: Speci men Type: BLOOD SPECIMENOrdering Facility: [facility] Address: [address] [place] [address] Performed By: #### 5 7021-8 ####[facility] [id number] [place] [address] [place] RBC (Bld) [#/Vol] 5.77 10*6/uL Normal 4.20-6.00 [facility] Comment on above: Order Comment: Speci men Type: BLOOD SPECIMENOrdering Facility: [facility] Address: [address] [place] [address] Performed By: #### 5 7021-8 ####[facility]ITAL[facility]CLIA [id number] [place] [address] [place] WBC (Bld) [#/Vol] 6.76 10*3/uL Normal 3.70-11.00 [facility] Comment on above: Order Comment: Speci men Type: BLOOD SPECIMENOrdering Facility: [facility] Address: [address] [place] [address] Performed By: #### 5 7021-8 ####[facility] [id number] [place] [address] [place] Comprehensive metabolic 2000 panelon 07-28-2025 Albumin [Mass/Vol] 4.0 g/dL Normal 3.9-4.9 [facility] Comment on above: Order Comment: Speci men Type: BLOOD SPECIMENOrdering Facility: [facility] Address: [address] [place] [address] Performed By: #### 2 4323-8 ####[facility] [id number] [place] [address] [place] ALP [Catalytic activity/Vol] 120 U/L High 38-113 [facility] Comment on above: Order Comment: Speci men Type: BLOOD SPECIMENOrdering Facility: [facility] Address: [address] [place] [address] Performed By: #### 2 4323-8 ####[facility] [id number] [place] [address] [place] ALT [Catalytic activity/Vol] 7 U/L Low 10-54 [facility] Comment on above: Order Comment: Speci men Type: BLOOD SPECIMENOrdering Facility: [facility] Address: [address] [place] [address] Performed By: #### 2 4323-8 ####[facility] GIANCARLONCLIA [id number] [place] [address] [place] Anion gap [Moles/Vol] 15 mmol/L Normal 8-15 [facility] Comment on above: Order Comment: Speci men Type: BLOOD SPECIMENOrdering Facility: [facility] Address: [address] [place] [address] Performed By: #### 2 4323-8 ####[facility] [id number] [place] [address] [place] AST [Catalytic activity/Vol] 13 U/L Low 14-40 [facility] Comment on above: Order Comment: Speci men Type: BLOOD SPECIMENOrdering Facility: [facility] Address: [address] [place] [address] Performed By: #### 2 4323-8 ####[facility] [id number] [place] [address] [place] Bilirubin [Mass/Vol] 0.4 mg/dL Normal 0.2-1.3 [facility] Comment on above: Order Comment: Speci men Type: BLOOD SPECIMENOrdering Facility: [facility] Address: [address] [place] [address] Performed By: #### 2 4323-8 ####[facility] [id number] [place] [address] [place] Calcium [Mass/Vol] 9.7 mg/dL Normal 8.5-10.2 [facility] Comment on above: Order Comment: Speci men Type: BLOOD SPECIMENOrdering Facility: [facility] Address: [address] [place] [address] Performed By: #### 2 4323-8 ####[facility] MILLWNCLIA [id number] [place] [address] [place] Chloride [Moles/Vol] 102 mmol/L Normal 98-107 [facility] Comment on above: Order Comment: Speci men Type: BLOOD SPECIMENOrdering Facility: [facility] Address: [address] [place] [address] Performed By: #### 2 4323-8 ####[facility]ENTERLIA [id number] [place] [address] [place] CO2 [Moles/Vol] 21 mmol/L Low 22-30 [facility] Comment on above: Order Comment: Speci men Type: BLOOD SPECIMENOrdering Facility: [facility] Address: [address] [place] [address] Performed By: #### 2 4323-8 ####[facility]ENTERLIA [id number] [place] [address] [place] Creatinine [Mass/Vol] 0.86 mg/dL Normal 0.73-1.22 [facility] Comment on above: Order Comment: Speci men Type: BLOOD SPECIMENOrdering Facility: [facility] Address: [address] [place] [address] Performed By: #### 2 4323-8 ####[facility]ENTERLIA [id number] [place] [address] [place] eGFRcr SerPlBld CKD-EPI 2020 99 mL/min/1.73m??? Normal >=60 [facility] Comment on above: Order Comment: Speci men Type: BLOOD SPECIMENOrdering Facility: [facility] Address: [address] [place] [address] Result Comment: Alee mated Glomerular Filtration Rate (eGFR) is calculated using the 2020 CKD-EPI creatinine equation. This equation utilizes serum creatinine, sex, and age as parameters. The creatinine assay has traceable calibration to isotope dilution-mass spectrometry. Refer to KDIGO guidelines for clinical interpretation. In patients with unstable renal function, e.g. those with acute kidney injury, the eGFR may not accurately reflect actual GFR. Performed By: #### 2 4323-8 ####[facility] [id number] [place] [address] [place] Glucose [Mass/Vol] 144 mg/dL High 74-99 [facility] Comment on above: Order Comment: Speci men Type: BLOOD SPECIMENOrdering Facility: [facility] Address: [address] [place], [place] [address] Result Comment: The [place] Diabetes Association (ADA) provides guidance for cutoff values for fasting glucose and random glucose. The ADA defines fasting as no caloric intake for at least 8 hours. Fasting plasma glucose results between 100 to 125 mg/dL indicate increased risk for diabetes (prediabetes). Fasting plasma glucose results greater than or equal to 126 mg/dL meet the criteria for diagnosis of diabetes. In the absence of unequivocal hyperglycemia, results should be confirmed by repeat testing. In a patient with classic symptoms of hyperglycemia or hyperglycemic crisis, random plasma glucose results greater than or equal to 200 mg/dL meet the criteria for diagnosis of diabetes. Reference: Standards of Medical Care in Diabetes 2016, Swiss Diabetes Association. Diabetes Care. 2016.39(Suppl 1). Performed By: #### 2 4323-8 ####[facility] [id number] [place] [address] [place] Potassium [Moles/Vol] 4.1 mmol/L Normal 3.7-5.1 [facility] Comment on above: Order Comment: Galei men Type: BLOOD SPECIMENOrdering Facility: [facility] Address: [address] [place] [address] Performed By: #### 2 4323-8 ####[facility] [id number] [place] [address] [place] Protein [Mass/Vol] 7.1 g/dL Normal 6.3-8.0 [facility] Comment on above: Order Comment: Speci men Type: BLOOD SPECIMENOrdering Facility: [facility] Address: [address] [place] [address] Performed By: #### 2 4323-8 ####[facility] [id number] [place] [address] [place] Sodium [Moles/Vol] 138 mmol/L Normal 136-144 [facility] Comment on above: Order Comment: Speci men Type: BLOOD SPECIMENOrdering Facility: [facility] Address: [address] [place] [address] Performed By: #### 2 4323-8 ####[facility] [id number] [place] [address] [place] Urea nitrogen [Mass/Vol] 16 mg/dL Normal 9-24 [facility] Comment on above: Order Comment: Speci men Type: BLOOD SPECIMENOrdering Facility: [facility] Address: [address] [place] [address] Performed By: #### 2 4323-8 ####[facility] [id number] [place] [address] [place] Ferritin SerPl-mCncon 2024 Ferritin [Mass/Vol] 46.7 ng/mL Normal 30.3-565.7 [facility] Comment on above: Order Comment: Speci men Type: BLOOD SPECIMENOrdering Facility: [facility] Address: [address] [place] [address] Performed By: #### 2 4331-1 ####[facility] LABCLIA [id number] [place] [address] [place] [facility] [id number] [place] [address] [place]#### 2276-4, 85262-0 ####[facility] LABCLIA [id number] [place] [address] [place] Folate SerPl-ncon 07-28-20 25 Folate [Mass/Vol] 10.9 ng/mL Normal >4.7 [facility] Comment on above: Order Comment: Carlo kingsley Type: BLOOD SPECIMENOrdering Facility: [facility] Address: [address] [place] [address] Performed By: #### 2 132-9, 2284-8 ####[facility] LABCLIA [id number] [address] OF [facility] HbA1c (Bld)on 07-28-2025 Average glucose Estimated from glycated hemoglobin (Bld) [Mass/Vol] 117 mg/dL Normal [facility] Comment on above: Order Comment: Carlo kingsley Type: BLOOD SPECIMEN [facility] Address: [address] [place] [address] Result Comment: eAG: (Estimated average glucose) is a calculated value from HgbA1c and is district representative of the average blood glucose level in the last 2-3 month period. Performed By: #### 2 4362-6 #### [facility] ROOMIA [id number] [address] [place] [address] [place] HbA1c (Bld) [Mass fraction] 5.7 % High 4.3-5.6 [facility] Comment on above: Order Comment: Carlo kingsley Type: BLOOD SPECIMEN [facility] Address: [address] [place] [address] Result Comment: Amer [place] Diabetes Association guidelines indicate that patients with HgbA1c in the range 5.7-6.4% are at increased risk for development of diabetes, and intervention by lifestyle modification may be beneficial. HgbA1c greater or equal to 6.5% is considered diagnostic of diabetes. Performed By: #### 2 4362-6 #### [facility] [id number] [address] [place] [address] [place] Iron and Iron binding capaci ty panelon 07-28-2025 Iron [Mass/Vol] 23 ug/dL Low 41-186 [facility] Comment on above: Order Comment: Speci men Type: BLOOD SPECIMENOrdering Facility: [facility] Address: [address] [id number] Performed By: #### 2 4331-1 ####[facility] LABCLIA [id number] [place] [address] [place] [facility] [id number] [place] [address] [place]#### 2276-4, 68163-8 ####[facility] LABCLIA [id number] [place] [id number] [place] Iron binding capacity [Mass/Vol] 335 ug/dL Normal 232-386 [facility] Comment on above: Order Comment: Speci men Type: BLOOD SPECIMENOrdering Facility: [facility] Address: [address] [place] [address] Performed By: #### 2 4331-1 ####[facility] LABCLIA [id number] [address] [place] [facility] [id number] [place] [address] [place]#### 2276-4, 54693-1 ####[facility] LABCLIA [id number] [place] [address] [place] Iron/TIBC [Molar ratio] 6.9 % Low 15.0-57.0 [facility] Comment on above: Order Comment: Speci men Type: BLOOD SPECIMENOrdering Facility: [facility] Address: [address] [address] Performed By: #### 2 4331-1 ####[facility] LABCLIA [id number] [place] [address] [place] [facility] [id number] [place] [address] [place]#### 2276-4, 74978-5 ####[facility] LABCLIA [id number] [place] [address] [place] Lipid 1996 panelon 5 Cholesterol [Mass/Vol] 157 mg/dL Normal <200 [facility] Comment on above: Order Comment: Speci men Type: BLOOD SPECIMENOrdering Facility: [facility] Address: [address] [place] [address] Result Comment: <200 mg/dL, Desirable 200-239 mg/dL, Borderline high >239 mg/dL, High Performed By: #### 2 4331-1 ####[facility] LABCLIA [id number] [address] [id number] [place] [address] [place]#### 2276-4, 69679-8 ####[facility] LABCLIA [id number] [address] STATES [facility] Cholesterol in HDL [Mass/Vol] 31 mg/dL Low >39 [facility] Comment on above: Order Comment: Speci men Type: BLOOD SPECIMENOrdering Facility: [facility] Address: [address] [place] [address] Result Comment: 40-5 9 mg/dL, Acceptable >59 mg/dL, High: Negative risk factor for coronary heart disease <40 mg/dL, Low: Positive risk factor for coronary heart disease Performed By: #### 2 4331-1 ####[facility] LABCLIA [id number] [address] [id number] [place] [address] [place]#### 2276-4, 03509-9 ####[facility] LABCLIA [id number] [address] [place] Cholesterol in LDL [Mass/Vol] 107 mg/dL High <100 [facility] Comment on above: Order Comment: Speci men Type: BLOOD SPECIMENOrdering Facility: [facility] Address: [address] [place] [address] Result Comment: <100 mg/dL, Optimal 100-129 mg/dL, Near optimal/above optimal 130-159 mg/dL, Borderline high 160-189 mg/dL, High >189 mg/dL, Very high Secondary prevention optimal LDL Cholesterol levels are recommended to be <70 mg/dL LDL cholesterol is calculated using the Snow-NIH equation. Performed By: #### 2 4331-1 ####[facility] LABCLIA [id number] [address] [id number] [place] [address]#### 2276-4, 10836-5 ####[facility] [id number] [address] Cholesterol in LDL/Cholesterol in HDL [Mass ratio] 3.45 {ratio} High <2.54 [facility] Comment on above: Order Comment: Galeshyanne kingsley Type: BLOOD SPECIMENOrdering Facility: [facility] Address: [address] [place] [address] Result Comment: Dick fletcher: 1. National Cholesterol Education Program ATP III Guideline At-A-Glance Quick Desk Reference: National Heart, Lung, and Blood [place]. National Institutes of Health. 2001: NIH Publication No. 01-3305. 2. An International Atherosclerosis Society position paper: global recommendations for the management of dyslipidemia: executive summary, Atherosclerosis. 2014: 232(2):410-413. Performed By: #### 2 4331-1 ####[facility] LABCLIA [id number] [address] [id number] [place] [address]#### 2276-4, 76399-2 ####[facility] LABCLIA [id number] [place] [address] Cholesterol in VLDL [Mass/Vol] 17 mg/dL Normal <30 [facility] Comment on above: Order Comment: Speci men Type: BLOOD SPECIMENOrdering Facility: [facility] Address: [address] [place] [address] Performed By: #### 2 4331-1 ####[facility] LABCLIA [id number] [address] [id number] [address] [place]#### 2276-4, 89444-3 ####[facility] LABCLIA [id number] [address] Cholesterol non HDL [Mass/Vol] 126 mg/dL Normal <130 [facility] Comment on above: Order Comment: Speci men Type: BLOOD SPECIMENOrdering Facility: [facility] Address: [address] [place] [address] Result Comment: <130 mg/dL, Optimal 130-159 mg/dL, Near optimal/above optimal 160-189 mg/dL, Borderline high 190-219 mg/dL, High >219 mg/dL, Very high Secondary prevention optimal non HDL Cholesterol levels are recommended to be <100 mg/dL Performed By: #### 2 4331-1 ####[facility] LABCLIA [id number] [address] [place] [facility] [id number] [address] [place]#### 2276-4, 47058-6 ####[facility] LABCLIA [id number] [address] [place] Cholesterol.total/C holesterol in HDL [Mass ratio] 5.06 {ratio} Normal <5.10 [facility] Comment on above: Order Comment: Speci men Type: BLOOD SPECIMENOrdering Facility: [facility] Address: [address] [place] [address] Performed By: #### 2 4331-1 ####[facility] LABCLIA [id number] [address] [id number] [address] [place]#### 2276-4, 46836-2 ####[facility] LABCLIA [id number] [place] [address] [place] FASTING TIME 12 hrs Normal [facility] Comment on above: Order Comment: Speci men Type: BLOOD SPECIMENOrdering Facility: [facility] Address: [address] [place] [address] Performed By: #### 2 4331-1 ####[facility] LABCLIA [id number] [address] [id number] [place] [address] [place]#### 2276-4, 77622-9 ####[facility] LABCLIA [id number] [address] [place] Triglyceride [Mass/Vol] 104 mg/dL Normal <150 [facility] Comment on above: Order Comment: Speci men Type: BLOOD SPECIMENOrdering Facility: [facility] Address: [address] [place] [address] Result Comment: <150 mg/dL, Normal 150-199 mg/dL, Borderline high 200-499 mg/dL, High >499 mg/dL, Very high Performed By: #### 2 4331-1 ####[facility] LABCLIA [id number] [address] [id number] [address] [place]#### 2276-4, 20157-1 ####[facility] LABCLIA [id number] [place] [address] [place] PSA/PROSTATE SPECIFIC ANTIGE N SCREENINGon 07-28-2025 Prostate specific Ag [Mass/Vol] 0.95 ng/mL Normal <2.60 [facility] Comment on above: Order Comment: Speci men Type: BLOOD SPECIMENOrdering Facility: [facility] Address: [address] [place] [address] Result Comment: Tota l PSA test methodology used is the Electrochemiluminescence Immunoassay by [employer]. Total PSA values by differing methodologies cannot be interchanged. Performed By: #### P SAS1 ####[facility] LABCLIA [id number] [place] [address] [place] Tacrolimus Bld-mCncon 2024 Tacrolimus (Bld) [Mass/Vol] 6.2 ng/mL Normal 5.0-20.0 [facility] Comment on above: Order Comment: Speci men Type: BLOOD SPECIMEN [facility] Address: [address] [place] [address] Result Comment: Ruth vidualized target levels for a given patient will depend on many factors (including the type of organ transplant, time since transplantation, concurrent medications, and other clinical factors), and should be assessed by those health care providers experienced in the management of immunosuppression. Reference ranges and high/low indicator flags are provided as general guidelines only. The treating physician must determine appropriate target levels/dosing based on the specific clinical situation. Test performed by chemiluminescent immunoassay using [employer] i. Performed By: #### 2 4362-6 #### [facility] CLIA [id number] [address] [place] [address] [place] Urinalysis complete panel (U )on 07-28-2025 Bacteria LM.HPF (Urine sed) [#/Area] Negative Normal Negative [facility] Comment on above: Order Comment: Speci men Type: URINE SPECIMENOrdering Facility: [facility] Address: [address] [place] [address] Performed By: #### 2 4356-8 ####[facility] LABCLIA [id number] [place] [address] [place] Bilirubin Ql (U) Negative Normal Negative [facility] Comment on above: Order Comment: Speci men Type: URINE SPECIMENOrdering Facility: [facility] Address: [address] [place] [address] Performed By: #### 2 4356-8 ####[facility] LABCLIA [id number] [address] [place] Clarity (Unsp spec) Clear Normal Clear [facility] Comment on above: Order Comment: Speci men Type: URINE SPECIMENOrdering Facility: [facility] Address: [address] [place] [address] Performed By: #### 2 4356-8 ####[facility] LABIA [id number] [address] STATES OF [facility] Color (U) Yellow Normal Yellow [facility] Comment on above: Order Comment: Speci men Type: URINE SPECIMENOrdering Facility: [facility] Address: [address] [place] [address] Performed By: #### 2 4356-8 ####[facility] LABCLIA [id number] [address] Epithelial cells LM.HPF (Urine sed) [#/Area] None Seen Normal [facility] Comment on above: Order Comment: Speci men Type: URINE SPECIMENOrdering Facility: [facility] Address: [address] [place] [address] Performed By: #### 2 4356-8 ####[facility] LABCLIA [id number] [address] [place] Glucose Test strip (U) [Mass/Vol] Negative Normal Negative [facility] Comment on above: Order Comment: Speci men Type: URINE SPECIMENOrdering Facility: [facility] Address: [address] [place] [address] Performed By: #### 2 4356-8 ####[facility] LABCLIA [id number] [address] [place] Hemoglobin Ql (U) Negative Normal Negative [facility] Comment on above: Order Comment: Speci men Type: URINE SPECIMENOrdering Facility: [facility] Address: [address] [place] [address] Performed By: #### 2 4356-8 ####[facility] LABCLIA [id number] [place] [address] [place] Hyaline casts (Urine sed) [#/Area] 0 /[LPF] Normal 0 /LPF [facility] Comment on above: Order Comment: Speci men Type: URINE SPECIMENOrdering Facility: [facility] Address: [address] [place] [address] Performed By: #### 2 4356-8 ####[facility] LABCLIA [id number] [place] [address] [place] Ketones Ql (U) Trace Abnormal Negative [facility] Comment on above: Order Comment: Speci men Type: URINE SPECIMENOrdering Facility: [facility] Address: [address] [place] [address] Performed By: #### 2 4356-8 ####[facility] LABCLIA [id number] [place] [address] [place] Leukocyte esterase Test strip Ql (U) Trace Abnormal Negative [facility] Comment on above: Order Comment: Speci men Type: URINE SPECIMENOrdering Facility: [facility] Address: [address] [place] [address] Performed By: #### 2 4356-8 ####[facility] LABCLIA [id number] [place] [address] [place] Nitrite Ql (U) Negative Normal Negative [facility] Comment on above: Order Comment: Speci men Type: URINE SPECIMENOrdering Facility: [facility] Address: [address] [place] [address] Performed By: #### 2 4356-8 ####[facility] LABCLIA [id number] [place] [address] [place] pH (U) 6.0 [pH] Normal 5.0-8.0 [facility] Comment on above: Order Comment: Speci men Type: URINE SPECIMENOrdering Facility: [facility] Address: [address] [place] [address] Performed By: #### 2 4356-8 ####[facility] LABCLIA [id number] [place] [address] [place] Protein (U) [Mass/Vol] Negative Normal Negative [facility] [facility] Comment on above: Order Comment: Speci men Type: URINE SPECIMENOrdering Facility: [facility] Address: [address] [place] [address] Performed By: #### 2 4356-8 ####[facility] LABCLIA [id number] [place] [address] [place] RBC LM.HPF (Urine sed) [#/Area] 0-2 /HPF Normal 0-2 /HPF [facility] Comment on above: Order Comment: Speci men Type: URINE SPECIMENOrdering Facility: [facility] Address: [address] [place] [address] Performed By: #### 2 4356-8 ####[facility] LABCLIA [id number] [place] [address] [place] Specific gravity (U) [Rel density] 1.016 Normal 1.005-1.030 [facility] Comment on above: Order Comment: Speci men Type: URINE SPECIMENOrdering Facility: [facility] Address: [address] [place] [address] Performed By: #### 2 4356-8 ####[facility] LABCLIA [id number] [place] [address] [place] Urobilinogen Ql (U) 1.0 EU/dL Normal 0.2-1.0 EU/dL [facility] Comment on above: Order Comment: Speci men Type: URINE SPECIMENOrdering Facility: [facility] Address: [address] [place] [address] Performed By: #### 2 4356-8 ####[facility] LABCLIA [id number] [place] [id number] [place] WBC LM.HPF (Urine sed) [#/Area] 0-5 /HPF Normal 0-5 /HPF [facility] Comment on above: Order Comment: Speci men Type: URINE SPECIMENOrdering Facility: [facility] Address: [address] [place] [address] Performed By: #### 2 4356-8 ####[facility] LABCLIA [id number] [place] [address] [place] Vit B12 [facility] 10-23-2 025 Cobalamin (Vitamin B12) [Mass/Vol] 433 pg/mL Normal 232-1245 [facility] Comment on above: Order Comment: Speci men Type: BLOOD SPECIMENOrdering Facility: [facility] Address: [address] [place] [address] Performed By: #### 2 132-9, 2284-8 ####[facility] LABCLIA [id number] [place] [address] [place] CNOVon 05-11-2025 CNOV Office Visit (YADYWS ) HOMAR FALLON ([id number]) 1965 M Date Time Provider Department 05/11/25 8:00 AM TUNG AGUILARWS During your visit today, we recorded the following information about you: Pulse Blood pressure Weight 83/minute 122/62 84.4 kg Tung Aguilar MD 05/11/2025 10:45 AM Signed Homar Agee Leeanne is a 59 year old male here for a Medicare wellness visit. Medicare Health Risk Assessment General Health fair Exercise: Minutes/Day 40 minutes Exercise: Days/Week 7 Alcohol: Daily Use no Alcohol: Drinks/Day no Alcohol: 6 or more drinks no Feel off balance See notes. Concerns: Teeth/Dentures no Concerns: Sexual function no Troubled by feelings no Frequency: Eating healthy diet Every days. ADLs requiring help none Safety precautions in home/vehicle yes Smoke, vape, chews tobacco no Difficulty hearing none Difficulty seeing no Current Providers Specialists: I have reviewed specialist-related care of the patient in the medical record. Current care team: Patient Care Team: Tung Aguilar MD as PCP - General (Family Medicine) Leticia Jasso, TRINY.GERIATRIC SOCIAL WORKER as Sound Effects Technician (Family Medicine) Alicia Chen APRN.KALIA as Sound Effects Technician (Family Medicine) Mehran Urrutia, ACCOUNTS RECEIVABLE SUPERVISOR-nephrology/transplant. No Dr Valdez, blender operator. Dr Fink, surgery Dr Barraza, GASTROENTEROLOGY Dr Lopez, optho Medical/Family history review Reviewed and updated problem list, medical/surgical/family/socia l history, medications, and allergies. Opioid use review Opioid Medications (last 90 days) No data to display Anxiety/Depression screening (Lower risk for depression) (Lower risk for anxiety) Recommendation: no further intervention at this time Cognitive screening 3/5 Cognitive screening reviewed and No further action needed (score 3-5). Functional Observation Was the patient's Timed Up AND Go test unsteady or >= 12 seconds? No Advance Care Planning Surrogate decision maker and/or advance care plan documented Measurements BP 122/62 Pulse 83 Wt 84.4 kg (186 lb) SpO2 96% BMI 27.47 kg/m? Vision Screening: Follows with optometry/ophthalmology Homar Fallon is a 59-year-old male with a history of diabetes, orthostatic hypotension, and kidney and pancreas transplants, presenting for an annual wellness visit. HPI Annual Wellness Exam: - Denies syncope, chest pain, palpitations, edema, headaches, paresthesias, weakness, blurred vision, speech issues, dysphagia, abdominal pain, diarrhea, constipation, hematuria, dysuria, dyspnea, cough, or wheezing. - No issues with dentures or sexual functioning. - Denies feeling down, depressed, hopeless, or losing interest in activities over the past two weeks. - Denies feeling nervous, anxious, or unable to control worrying. - Denies changes in moles or rashes. - Denies alcohol, tobacco, or vaping use. - Wears seatbelts in the car; has adequate lighting and handrails at home. - No issues with ADLs; does all cooking and cleaning independently. - No issues with hearing or vision. - Has a medical living will; sisters are designated to make medical decisions if needed. - Sees Dr. Lopez at [facility] for ophthalmology. - Sees Dr. Valdez for podiatry. - Follow-up with Dr. Julien for bezoar and gastroparesis as needed. - Sees Dr. Barraza for gastroenterology. - Follow-up with urology a few years ago; last PSA was normal. - Takes CellCept and Prograf. - Denies opioid use. Diabetes: - A1c improved to 6.0 on 05/09. - Working out 40 minutes daily, 7 days a week; walking. - Eliminated sugary drinks; watching starches and carbs. - No alcohol consumption. - Weight decreased from 197 lbs in February to 186 lbs currently. Orthostatic Hypotension: - Reports dizziness and lightheadedness since transplant. - Denies syncope. - Reports leg shaking and falling, possibly related to dehydration. - Advised to wear support hose and stay hydrated. - has been noted since his transplant. 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 Denies syncope. Dupuytren's Contracture: - Contractures in hands are doing pretty good. Amputation: - Left wrist stump is "doing okay." MEDICATIONS: Current Outpatient Medications Medication Sig tacrolimus IR (PROGRAF) 1 mg capsule TAKE 3 CAPSULES BY MOUTH EVERY DAY IN THE MORNING AND TAKE 2 CAPSULES IN THE EVENING mycophenolate Mofetil (CELLCEPT) 500 mg tablet take 1 tablet by mouth twice a day ammonium lactate (LAC-HYDRIN) 12 % lotion Apply to affected area as needed for dry skin. mometasone (ELOCON) 0.1 % cream Apply 1 application to affected area once daily. No current facility-administered medications for this visit. ALLERGIES: ALLERGIES Allergen Reactions Doxazosin GI Upset Doxycycline Rash Penicillins rash PAST MEDICAL HISTORY Diagnosis Date Acute pancreatitis (HCC) (more content not included)... Normal [facility] CBC panel Auto (Bld)on 05-09 Erythrocyte distribution width (RBC) [Ratio] 14.0 % Normal 11.5-15.0 [facility] Comment on above: Order Comment: Speci men Type: BLOOD SPECIMENOrdering Facility: [facility] Address: [address] [place] [address] Performed By: #### 5 8410-2 ####[facility] JOELTrinoNCLIA [id number] [place] [address] [place] Hematocrit (Bld) [Volume fraction] 39.5 % Normal 39.0-51.0 [facility] Comment on above: Order Comment: Speci men Type: BLOOD SPECIMENOrdering Facility: [facility] Address: [address] [place] [address] Performed By: #### 5 8410-2 ####[facility] [id number] [place] [address] [place] Hemoglobin (Bld) [Mass/Vol] 12.5 g/dL Low 13.0-17.0 [facility] Comment on above: Order Comment: Speci men Type: BLOOD SPECIMENOrdering Facility: [facility] Address: [address] [place] [address] Performed By: #### 5 8410-2 ####[facility] [id number] [place] [address] [place] MCH (RBC) [Entitic mass] 24.0 pg Low 26.0-34.0 [facility] Comment on above: Order Comment: Speci men Type: BLOOD SPECIMENOrdering Facility: [facility] Address: [address] [place] [address] Performed By: #### 5 8410-2 ####[facility] [id number] [place] [address] [place] MCHC (RBC) [Mass/Vol] 31.6 g/dL Normal 30.5-36.0 [facility] Comment on above: Order Comment: Speci men Type: BLOOD SPECIMENOrdering Facility: [facility] Address: [address] [place] [address] Performed By: #### 5 8410-2 ####[facility] JOELWNCLIA [id number] [place] [address] [place] MCV (RBC) [Entitic vol] 76.0 fL Low 80.0-100.0 [facility] Comment on above: Order Comment: Speci men Type: BLOOD SPECIMENOrdering Facility: [facility] Address: [address] [place] [address] Performed By: #### 5 8410-2 ####[facility] [id number] [place] [address] [place] Nucleated RBC (Bld) [#/Vol] 10*3/uL Normal <0.01 [facility] Comment on above: Order Comment: Speci men Type: BLOOD SPECIMENOrdering Facility: [facility] Address: [address] [place] [address] Performed By: #### 5 8410-2 ####[facility] [id number] [place] [address] [place] Platelet mean volume (Bld) [Entitic vol] 10.6 fL Normal 9.0-12.7 [facility] Comment on above: Order Comment: Speci men Type: BLOOD SPECIMENOrdering Facility: [facility] Address: [address] [place] [address] Performed By: #### 5 8410-2 ####[facility]ITALWNCLIA [id number] [place] [address] [place] Platelets (Bld) [#/Vol] 164 10*3/uL Normal 150-400 [facility] Comment on above: Order Comment: Speci men Type: BLOOD SPECIMENOrdering Facility: [facility] Address: [address] [place] [address] Performed By: #### 5 8410-2 ####[facility] [id number] [place] [address] [place] RBC (Bld) [#/Vol] 5.20 10*6/uL Normal 4.20-6.00 [facility] Comment on above: Order Comment: Speci men Type: BLOOD SPECIMENOrdering Facility: [facility] Address: [address] [place] [address] Performed By: #### 5 8410-2 ####[facility] [id number] [place] [address] [place] WBC (Bld) [#/Vol] 5.86 10*3/uL Normal 3.70-11.00 [facility] Comment on above: Order Comment: Speci men Type: BLOOD SPECIMENOrdering Facility: [facility] Address: [address] [place] [address] Performed By: #### 5 8410-2 ####[facility] [id number] [place] [address] [place] HbA1c (Bld)on 05-09-2025 Average glucose Estimated from glycated hemoglobin (Bld) [Mass/Vol] 126 mg/dL Normal [facility] Comment on above: Order Comment: Speci men Type: BLOOD SPECIMENOrdering Facility: [facility] Address: [address] [place] [address] Result Comment: eAG: (Estimated average glucose) is a calculated value from HgbA1c and is district representative of the average blood glucose level in the last 2-3 month period. Performed By: #### 5 5454-3 ####[facility] LABCLIA [id number] [place] [address] [place] HbA1c (Bld) [Mass fraction] 6.0 % High 4.3-5.6 [facility] Comment on above: Order Comment: Speci men Type: BLOOD SPECIMENOrdering Facility: [facility] Address: [address] [place] [address] Result Comment: Amer ican Diabetes Association guidelines indicate that patients with HgbA1c in the range 5.7-6.4% are at increased risk for development of diabetes, and intervention by lifestyle modification may be beneficial. HgbA1c greater or equal to 6.5% is considered diagnostic of diabetes. Performed By: #### 5 5454-3 ####[facility] LABCLIA [id number] [place] [address] [place] Renal function 2000 panelon 05-09-2025 Albumin [Mass/Vol] 3.7 g/dL Low 3.9-4.9 [facility] Comment on above: Order Comment: Speci men Type: BLOOD SPECIMEN [facility] Address: [address] [place] [address] Performed By: #### 2 4362-6 #### [facility] ROOMIA [id number] [address] [place] [address] [place] Anion gap [Moles/Vol] 12 mmol/L Normal 8-15 [facility] Comment on above: Order Comment: Speci men Type: BLOOD SPECIMEN [facility] Address: [address] [place] [address] Performed By: #### 2 4362-6 #### [facility] ROOMIA [id number] [address] [place] [address] [place] Calcium [Mass/Vol] 9.5 mg/dL Normal 8.5-10.2 [facility] Comment on above: Order Comment: Speci men Type: BLOOD SPECIMEN [facility] Address: [address] [place] [address] Performed By: #### 2 4362-6 #### [facility] ROOMIA [id number] [address] [place] [address] [place] Chloride [Moles/Vol] 105 mmol/L Normal 98-107 [facility] Comment on above: Order Comment: Speci men Type: BLOOD SPECIMEN [facility] Address: [address] [place] [address] Performed By: #### 2 4362-6 #### [facility] CLIA [id number] [address] [place] [address] [place] CO2 [Moles/Vol] 21 mmol/L Low 22-30 [facility] Comment on above: Order Comment: Speci men Type: BLOOD SPECIMEN [facility] Address: [address] [place] [address] Performed By: #### 2 4362-6 #### [facility] CLIA [id number] [address] [place] [address] [place] Creatinine [Mass/Vol] 0.86 mg/dL Normal 0.73-1.22 [facility] Comment on above: Order Comment: Speci men Type: BLOOD SPECIMEN [facility] Address: [address] [place] [address] Performed By: #### 2 4362-6 #### [facility] CLIA [id number] [address] [place] [address] [place] eGFRcr SerPlBld CKD-EPI 2020 99 mL/min/1.73m??? Normal >=60 [facility] Comment on above: Order Comment: Speci men Type: BLOOD SPECIMEN [facility] Address: [address] [place] [address] Result Comment: Alee mated Glomerular Filtration Rate (eGFR) is calculated using the 2020 CKD-EPI creatinine equation. This equation utilizes serum creatinine, sex, and age as parameters. The creatinine assay has traceable calibration to isotope dilution-mass spectrometry. Refer to KDIGO guidelines for clinical interpretation. In patients with unstable renal function, e.g. those with acute kidney injury, the eGFR may not accurately reflect actual GFR. Performed By: #### 2 4362-6 #### [facility] CLIA [id number] [address] [place] [address] [place] Glucose [Mass/Vol] 169 mg/dL High 74-99 [facility] Comment on above: Order Comment: Carlo kingsley Type: BLOOD SPECIMEN [facility] Address: [address] [place] [address] Result Comment: The [place] Diabetes Association (ADA) provides guidance for cutoff values for fasting glucose and random glucose. The ADA defines fasting as no caloric intake for at least 8 hours. Fasting plasma glucose results between 100 to 125 mg/dL indicate increased risk for diabetes (prediabetes). Fasting plasma glucose results greater than or equal to 126 mg/dL meet the criteria for diagnosis of diabetes. In the absence of unequivocal hyperglycemia, results should be confirmed by repeat testing. In a patient with classic symptoms of hyperglycemia or hyperglycemic crisis, random plasma glucose results greater than or equal to 200 mg/dL meet the criteria for diagnosis of diabetes. Reference: Standards of Medical Care in Diabetes 2016, Swiss Diabetes Association. Diabetes Care. 2016.39(Suppl 1). Performed By: #### 2 4362-6 #### [facility] CLIA [id number] [address] [place] [address] [place] Phosphate [Mass/Vol] 2.8 mg/dL Normal 2.7-4.8 [facility] Comment on above: Order Comment: Carlo kingsley Type: BLOOD SPECIMEN [facility] Address: [address] [place] [address] Performed By: #### 2 4362-6 #### [facility] CLIA [id number] [address] [place] [address] [place] Potassium [Moles/Vol] 4.0 mmol/L Normal 3.7-5.1 [facility] Comment on above: Order Comment: Carlo kingsley Type: BLOOD SPECIMEN [facility] Address: [address] [place] [address] Performed By: #### 2 4362-6 #### [facility] CLIA [id number] [address] [place] [address] [place] Sodium [Moles/Vol] 138 mmol/L Normal 136-144 [facility] Comment on above: Order Comment: Speci men Type: BLOOD SPECIMEN [facility] Address: [address] [place] [address] Performed By: #### 2 4362-6 #### [facility] CLIA [id number] [address] [place] [address] STATES OF [facility] Urea nitrogen [Mass/Vol] 14 mg/dL Normal 9-24 [facility] Comment on above: Order Comment: Carlo kingsley Type: BLOOD SPECIMEN [facility] Address: [address] [place] [address] Performed By: #### 2 4362-6 #### [facility] CLIA [id number] [address] [place] [address] [place] Tacrolimus Bld-mCncon 2024 Tacrolimus (Bld) [Mass/Vol] 8.7 ng/mL Normal 5.0-20.0 [facility] Comment on above: Order Comment: Carlo kingsley Type: BLOOD SPECIMEN [facility] Address: [address] [place] [address] Result Comment: Ruth vidualized target levels for a given patient will depend on many factors (including the type of organ transplant, time since transplantation, concurrent medications, and other clinical factors), and should be assessed by those health care providers experienced in the management of immunosuppression. Reference ranges and high/low indicator flags are provided as general guidelines only. The treating physician must determine appropriate target levels/dosing based on the specific clinical situation. Test performed by chemiluminescent immunoassay using Ludwig Alinity i. 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 Patient/authorized district representative agreed to proceed Department of Kidney Medicine Medical Specialties [place] [facility] CHIEF COMPLAINT: post tx follow up care HPI: Mr. Fallon is a 59 year old male who presents for follow up of a Simultaneous Kidney-Pancreas transplant. 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 He describes a sudden onset of tremors and leg weakness, resulting in a fall. He denies loss of consciousness, head injury, or any other injuries during the incident. He suspects the episode may have been due to a combination of hypotension and dehydration, although he reports normally drinking a significant amount of water and avoiding sodas. He denies any recent changes in appetite, nausea, emesis, diarrhea, constipation, dysphagia, odynophagia, urinary issues, hematuria, cough, dyspnea, chest pain, or palpitations. Homar has a history of type 1 diabetes mellitus and notes a recent increase in carbohydrate intake, including foods such as potato soup, macaroni salad, and potato salads. He also reports drinking non-diet green tea for the past six months. He acknowledges that his carbohydrate intake has increased. Ears/Nose/Mouth/Throat: (-) difficulty chewing, (-) dysphagia Cardiovascular: (-) chest pain, (-) palpitations, (-) edema Respiratory: (-) cough, (-) shortness of breath Gastrointestinal: (-) nausea, (-) vomiting, (-) diarrhea, (-) constipation Genitourinary: (-) dysuria, (-) hematuria Neurological: (+) tremors, (+) leg weakness, (-) syncope MEDICATIONS: ammonium lactate (LAC-HYDRIN) 12 % lotion Apply to affected area as needed for dry skin. mometasone (ELOCON) 0.1 % cream Apply 1 application to affected area once daily. mycophenolate Mofetil (CELLCEPT) 500 mg tablet take 1 tablet by mouth twice a day sildenafil (VIAGRA) 100 mg tablet Take 1 tablet by mouth as needed. tacrolimus IR (PROGRAF) 1 mg capsule Take (2) capsules by mouth twice daily ALLERGIES: ALLERGIES Allergen Reactions Doxazosin GI Upset Doxycycline Rash Penicillins rash PHYSICAL EXAM: BP 122/68 (BP Site: Right Arm, BP Position: Sitting, BP Cuff Size: Regular Adult) Pulse 87 Ht 175.3 cm (5' 9") Wt 89.5 kg (197 lb 5 oz) BMI 29.14 kg/m? BP - standardized method Pulse 1 BP #1: 121/69 Pulse #1: 86 beats/min 2 BP #2 : 122/67 Pulse #2 : 89 beats/min 3 BP #3 : 124/67 Pulse #3 : 86 beats/min Average Average BP: 122/68 Average Pulse: 87 beats/min Orthostatic vitals Supine Sitting Standing Standing BP : 92/50 Standing pulse : 91 BP cuff location BP cuff location: Right upper arm BP cuff size BP cuff size: regular adult Comments for BP values First BP (right) First BP (left) Last 3 Encounter BP Readings: Date: BP: 02/07/2025 122/68 10/22/2024 130/80 08/23/2024 118/72 Constitutional: No acute distress, Responsive, Normal habitus, Well-nourished, and accompanied by his sister, Mitzi Eyes: Conjunctiva clear and sclerae anicteric Ear, Nose, and Throat: Hearing normal, Lips normal, and Dentition normal Neck:Trachea midline No jugular venous distension Cardiovascular:Regular rate and rhythm, normal S1 and S2, no murmurs, rubs, or gallops No peripheral edema Respiratory: Normal respiratory effort. Lungs clear bilaterally. Abdomen:Soft, non-tender, non-distended. Normal bowel sounds. No hepatosplenomegaly. Psychiatric: Alert and oriented x self, place, time, and setting Normal mood/affectDATA: Diagnostic tests reviewed for today's visit: Blood work, imaging studies, and office notes were reviewed in [facility] ASSESSMENT/PLAN: 59 year (more content not included)... Normal [facility] - Hematology and Cell countson 02-07-2025 Hemoglobin Ql (U) Trace-intact Abnormal Negative [facility] - Urinalysison Protein Ql (U) Negative Negative mg/dL [facility] No Panel Informationon 02-07 BILIRUBIN UA (POCT) Negative Negative [facility] CLARITY UA (POCT) Clear [facility] COLOR UA (POCT) Yellow [facility] GLUCOSE UA (POCT) Negative Negative mg/dL [facility] Interpretation and review of laboratory results Abnormal [facility] KETONE UA (POCT) Negative Negative mg/dL [facility] LEUKOCYTES UA (POCT) Negative Negative [facility] NITRITE UA (POCT) Negative Negative [facility] PH UA (POCT) 6 4.5 - 8.0 [facility] SPECIFIC GRAVITY UA (POCT) <=1.005 Abnormal 1.005 - 1.030 [facility] UROBILINOGEN UA (POCT) 0.2 Normal E.U./dL [facility] Location:[facility] [place], [address] [place] [address], [address] [place] [address] POINT OF CARE [facility] Amylase SerPl-cCncon 025 Amylase [Catalytic activity/Vol] 18 U/L Low 30-104 [facility] Comment on above: Order Comment: Speci men Type: BLOOD SPECIMENOrdering Facility: [facility] Address: [address] [place] [address] Performed By: #### 1 798-8, 3040-3 ####[facility] LABCLIA [id number] [place] [address] [place] C peptide SerPl-mCncon 02-04 C peptide [Mass/Vol] 4.2 ng/mL Normal 1.1-4.4 [facility] Comment on above: Order Comment: Speci men Type: BLOOD SPECIMENOrdering Facility: [facility] Address: [address] [place] [address] Performed By: #### 1 986-9 ####[facility] LABCLIA [id number] [place] [address] [place] CBC W Auto Differential pane l (Bld)on 02-04-2025 Basophils (Bld) [#/Vol] 0.05 10*3/uL Normal <0.11 [facility] Comment on above: Order Comment: Speci men Type: BLOOD SPECIMEN Ordering Facility: [facility] Address: [address] [place] [address] Performed By: #### 2 4362-6 #### [facility] CLIA [id number] [address] [place] [address] [place] Basophils/100 WBC (Bld) 0.7 % Normal [facility] Comment on above: Order Comment: Speci men Type: BLOOD SPECIMEN Ordering Facility: [facility] Address: [address] [place] [address] Performed By: #### 2 4362-6 #### [facility] CLIA [id number] [address] [place] [address] [place] Differential cell count method Nom (Bld) Auto Normal [facility] Comment on above: Order Comment: Speci men Type: BLOOD SPECIMEN Ordering Facility: [facility] Address: [address] [place] [address] Performed By: #### 2 4362-6 #### [facility] CLIA [id number] [address] [place] [address] [place] Eosinophils (Bld) [#/Vol] 0.16 10*3/uL Normal <0.46 [facility] Comment on above: Order Comment: Speci men Type: BLOOD SPECIMEN Ordering Facility: [facility] Address: [address] [place] [address] Performed By: #### 2 4362-6 #### [facility] CLIA [id number] [address] [place] [address] [place] Eosinophils/100 WBC (Bld) 2.1 % Normal [facility] Comment on above: Order Comment: Speci men Type: BLOOD SPECIMEN Ordering Facility: [facility] Address: [address] [place] [address] Performed By: #### 2 4362-6 #### [facility] CLIA [id number] [address] [place] [address] [place] Erythrocyte distribution width (RBC) [Ratio] 14.2 % Normal 11.5-15.0 [facility] Comment on above: Order Comment: Speci men Type: BLOOD SPECIMEN Ordering Facility: [facility] Address: [address] [place] [address] Performed By: #### 2 4362-6 #### [facility] CLIA [id number] [address] [place] [address] [place] Hematocrit (Bld) [Volume fraction] 45.4 % Normal 39.0-51.0 [facility] Comment on above: Order Comment: Speci men Type: BLOOD SPECIMEN Ordering Facility: [facility] Address: [address] [place] [address] Performed By: #### 2 4362-6 #### [facility] CLIA [id number] [address] [place] [address] [place] Hemoglobin (Bld) [Mass/Vol] 14.9 g/dL Normal 13.0-17.0 [facility] Comment on above: Order Comment: Speci men Type: BLOOD SPECIMEN Ordering Facility: [facility] Address: [address] [place] [address] Performed By: #### 2 4362-6 #### [facility] CLIA [id number] [address] [place] [address] [place] Immature granulocytes (Bld) [#/Vol] 0.04 10*3/uL Normal <0.10 [facility] Comment on above: Order Comment: Speci men Type: BLOOD SPECIMEN Ordering Facility: [facility] Address: [address] [place] [address] Performed By: #### 2 4362-6 #### [facility] CLIA [id number] [address] [place] [address] [place] Immature granulocytes/100 WBC (Bld) 0.5 % Normal [facility] Comment on above: Order Comment: Speci men Type: BLOOD SPECIMEN Ordering Facility: [facility] Address: [address] [place] [address] Performed By: #### 2 4362-6 #### [facility] CLIA [id number] [address] [place] [address] [place] Lymphocytes (Bld) [#/Vol] 2.56 10*3/uL Normal 1.00-4.00 [facility] Comment on above: Order Comment: Speci men Type: BLOOD SPECIMEN Ordering Facility: [facility] Address: [address] [place] [address] Performed By: #### 2 4362-6 #### [facility] CLIA [id number] [address] [place] [address] [place] Lymphocytes/100 WBC (Bld) 34.1 % Normal [facility] Comment on above: Order Comment: Speci men Type: BLOOD SPECIMEN Ordering Facility: [facility] Address: [address] [place] [address] Performed By: #### 2 4362-6 #### [facility] RO[facility] [id number] [address] [place] [address] [place] MCH (RBC) [Entitic mass] 26.4 pg Normal 26.0-34.0 [facility] Comment on above: Order Comment: Speci men Type: BLOOD SPECIMEN Ordering Facility: [facility] Address: [address] [place] [address] Performed By: #### 2 4362-6 #### [facility] [id number] [address] [place] [address] [place] MCHC (RBC) [Mass/Vol] 32.8 g/dL Normal 30.5-36.0 [facility] Comment on above: Order Comment: Speci men Type: BLOOD SPECIMEN Ordering Facility: [facility] Address: [address] [place] [address] Performed By: #### 2 4362-6 #### [facility] [id number] [address] [place] [address] [place] MCV (RBC) [Entitic vol] 80.5 fL Normal 80.0-100.0 [facility] Comment on above: Order Comment: Speci men Type: BLOOD SPECIMEN Ordering Facility: [facility] Address: [address] [place] [address] Performed By: #### 2 4362-6 #### [facility] [id number] [address] [place] [address] [place] Monocytes (Bld) [#/Vol] 0.61 10*3/uL Normal <0.87 [facility] Comment on above: Order Comment: Speci men Type: BLOOD SPECIMEN Ordering Facility: [facility] Address: [address] [place] [address] Performed By: #### 2 4362-6 #### [facility] [id number] [address] [place] [address] [place] Monocytes/100 WBC (Bld) 8.1 % Normal [facility] Comment on above: Order Comment: Speci men Type: BLOOD SPECIMEN Ordering Facility: [facility] Address: [address] [place] [address] Performed By: #### 2 4362-6 #### [facility] CLIA [id number] [address] [place] [address] [place] Neutrophils (Bld) [#/Vol] 4.08 10*3/uL Normal 1.45-7.50 [facility] Comment on above: Order Comment: Speci men Type: BLOOD SPECIMEN Ordering Facility: [facility] Address: [address] [place] [address] Performed By: #### 2 4362-6 #### [facility] CLIA [id number] [address] [place] [address] [place] Neutrophils/100 WBC (Bld) 54.5 % Normal [facility] Comment on above: Order Comment: Speci men Type: BLOOD SPECIMEN Ordering Facility: [facility] Address: [address] [place] [address] Performed By: #### 2 4362-6 #### [facility] CLIA [id number] [address] [place] [address] [place] Nucleated RBC (Bld) [#/Vol] 10*3/uL Normal <0.01 [facility] Comment on above: Order Comment: Speci men Type: BLOOD SPECIMEN Ordering Facility: [facility] Address: [address] [place] [address] Performed By: #### 2 4362-6 #### [facility] CLIA [id number] [address] [place] [address] [place] Nucleated RBC/100 WBC (Bld) [Ratio] 0.0 /100 WBC Normal [facility] Comment on above: Order Comment: Speci men Type: BLOOD SPECIMEN Ordering Facility: [facility] Address: [address] [place] [address] Performed By: #### 2 4362-6 #### [facility] CLIA [id number] [address] [place] [address] [place] Platelet mean volume (Bld) [Entitic vol] 10.2 fL Normal 9.0-12.7 [facility] Comment on above: Order Comment: Speci men Type: BLOOD SPECIMEN Ordering Facility: [facility] Address: [address] [place], [place] [address] Performed By: #### 2 4362-6 #### [facility] CLIA [id number] [address] [place] [address] [place] Platelets (Bld) [#/Vol] 161 10*3/uL Normal 150-400 [facility] Comment on above: Order Comment: Speci men Type: BLOOD SPECIMEN Ordering Facility: [facility] Address: [address] [place], [place] [address] Performed By: #### 2 4362-6 #### [facility] CLIA [id number] [address] [place] [address] [place] RBC (Bld) [#/Vol] 5.64 10*6/uL Normal 4.20-6.00 [facility] Comment on above: Order Comment: Speci men Type: BLOOD SPECIMEN Ordering Facility: [facility] Address: [address] [place] [address] Performed By: #### 2 4362-6 #### [facility] CLIA [id number] [address] [place] [address] [place] WBC (Bld) [#/Vol] 7.50 10*3/uL Normal 3.70-11.00 [facility] Comment on above: Order Comment: Speci men Type: BLOOD SPECIMEN Ordering Facility: [facility] Address: [address] [place] [address] Performed By: #### 2 4362-6 #### [facility] CLIA [id number] [address] [place] [address] [place] Comprehensive metabolic 2000 panelon 02-04-2025 Albumin [Mass/Vol] 4.1 g/dL Normal 3.9-4.9 [facility] Comment on above: Order Comment: Speci men Type: BLOOD SPECIMENOrdering Facility: [facility] Address: [address] [place] [address] Performed By: #### 2 4323-8 ####[facility] [id number] [place] [address] [place] ALP [Catalytic activity/Vol] 129 U/L High 38-113 [facility] Comment on above: Order Comment: Speci men Type: BLOOD SPECIMENOrdering Facility: [facility] Address: [address] [place] [address] Performed By: #### 2 4323-8 ####[facility] [id number] [place] [address] [place] ALT [Catalytic activity/Vol] 19 U/L Normal 10-54 [facility] Comment on above: Order Comment: Speci men Type: BLOOD SPECIMENOrdering Facility: [facility] Address: [address] [place] [address] Performed By: #### 2 4323-8 ####[facility] [id number] [place] [address] [place] Anion gap [Moles/Vol] 9 mmol/L Normal 8-15 [facility] Comment on above: Order Comment: Speci men Type: BLOOD SPECIMENOrdering Facility: [facility] Address: [address] [place] [address] Performed By: #### 2 4323-8 ####[facility] [id number] [place] [address] [place] AST [Catalytic activity/Vol] 18 U/L Normal 14-40 [facility] Comment on above: Order Comment: Speci men Type: BLOOD SPECIMENOrdering Facility: [facility] Address: [address] [place] [address] Performed By: #### 2 4323-8 ####[facility] JOELWNCLIA [id number] [place] [address] [place] Bilirubin [Mass/Vol] 0.4 mg/dL Normal 0.2-1.3 [facility] Comment on above: Order Comment: Speci men Type: BLOOD SPECIMENOrdering Facility: [facility] Address: [address] [place] [address] Performed By: #### 2 4323-8 ####[facility] [id number] [place] [address] [place] Calcium [Mass/Vol] 9.6 mg/dL Normal 8.5-10.2 [facility] Comment on above: Order Comment: Speci men Type: BLOOD SPECIMENOrdering Facility: [facility] Address: [address] [place] [address] Performed By: #### 2 4323-8 ####[facility] [id number] [place] [address] [place] Chloride [Moles/Vol] 103 mmol/L Normal 98-107 [facility] Comment on above: Order Comment: Speci men Type: BLOOD SPECIMENOrdering Facility: [facility] Address: [address] [place] [address] Performed By: #### 2 4323-8 ####[facility] [id number] [place] [address] [place] CO2 [Moles/Vol] 26 mmol/L Normal 22-30 [facility] Comment on above: Order Comment: Speci men Type: BLOOD SPECIMENOrdering Facility: [facility] Address: [address] [place] [address] Performed By: #### 2 4323-8 ####[facility] [id number] [place] [address] [place] Creatinine [Mass/Vol] 0.77 mg/dL Normal 0.73-1.22 [facility] Comment on above: Order Comment: Speci men Type: BLOOD SPECIMENOrdering Facility: [facility] Address: [address] [place] [address] Performed By: #### 2 4323-8 ####[facility] [id number] [place] [address] [place] Creatinine and Glomerular filtration rate.predicted panel (S/P/Bld) 102 mL/min/1.73m??? Normal >=60 [facility] Comment on above: Order Comment: Carlo [facility] Type: BLOOD SPECIMENOrdering Facility: [facility] Address: [address] [place] [address] Result Comment: Alee mated Glomerular Filtration Rate (eGFR) is calculated using the 2020 CKD-EPI creatinine equation. This equation utilizes serum creatinine, sex, and age as parameters. The creatinine assay has traceable calibration to isotope dilution-mass spectrometry. Refer to KDIGO guidelines for clinical interpretation. In patients with unstable renal function, e.g. those with acute kidney injury, the eGFR may not accurately reflect actual GFR. Performed By: #### 2 4323-8 ####[facility] [id number] [place] [address] [place] Glucose [Mass/Vol] 158 mg/dL High 74-99 [facility] Comment on above: Order Comment: Speci men Type: BLOOD SPECIMENOrdering Facility: [facility] Address: [address] [place] [address] Result Comment: The [place] Diabetes Association (ADA) provides guidance for cutoff values for fasting glucose and random glucose. The ADA defines fasting as no caloric intake for at least 8 hours. Fasting plasma glucose results between 100 to 125 mg/dL indicate increased risk for diabetes (prediabetes). Fasting plasma glucose results greater than or equal to 126 mg/dL meet the criteria for diagnosis of diabetes. In the absence of unequivocal hyperglycemia, results should be confirmed by repeat testing. In a patient with classic symptoms of hyperglycemia or hyperglycemic crisis, random plasma glucose results greater than or equal to 200 mg/dL meet the criteria for diagnosis of diabetes. Reference: Standards of Medical Care in Diabetes 2016, [place] Diabetes Association. Diabetes Care. 2016.39(Suppl 1). Performed By: #### 2 4323-8 ####[facility] MILLTOWFRANKYLIA [id number] [place] [address] [place] Potassium [Moles/Vol] 4.1 mmol/L Normal 3.7-5.1 [facility] Comment on above: Order Comment: Carlo kingsley Type: BLOOD SPECIMENOrdering Facility: [facility] Address: [address] [place] [address] Performed By: #### 2 4323-8 ####[facility] [id number] [place] [address] [place] Protein [Mass/Vol] 6.6 g/dL Normal 6.3-8.0 [facility] Comment on above: Order Comment: Carlo kingsley Type: BLOOD SPECIMENOrdering Facility: [facility] Address: [address] [place] [address] Performed By: #### 2 4323-8 ####[facility] [id number] [place] [address] [place] Sodium [Moles/Vol] 138 mmol/L Normal 136-144 [facility] Comment on above: Order Comment: Galei men Type: BLOOD SPECIMENOrdering Facility: [facility] Address: [address] [place] [address] Performed By: #### 2 4323-8 ####[facility] [id number] [place] [address] [place] Urea nitrogen [Mass/Vol] 13 mg/dL Normal 9-24 [facility] Comment on above: Order Comment: Carlo kingsley Type: BLOOD SPECIMENOrdering Facility: [facility] Address: [address] [place] [address] Performed By: #### 2 4323-8 ####[facility] [id number] [place] [address] [place] HbA1c (Bld)on 02-04-2025 Average glucose Estimated from glycated hemoglobin (Bld) [Mass/Vol] 131 mg/dL Normal [facility] Comment on above: Order Comment: Carlo kingsley Type: BLOOD SPECIMENOrdering Facility: [facility] Address: [address] [place] [address] Result Comment: eAG: (Estimated average glucose) is a calculated value from HgbA1c and is district representative of the average blood glucose level in the last 2-3 month period. Performed By: #### 5 5454-3 ####[facility] LABCLIA [id number] [place] [address] [place] HbA1c (Bld) [Mass fraction] 6.2 % High 4.3-5.6 [facility] Comment on above: Order Comment: Carlo kingsley Type: BLOOD SPECIMENOrdering Facility: [facility] Address: [address] [place] [address] Result Comment: Amer [place] Diabetes Association guidelines indicate that patients with HgbA1c in the range 5.7-6.4% are at increased risk for development of diabetes, and intervention by lifestyle modification may be beneficial. HgbA1c greater or equal to 6.5% is considered diagnostic of diabetes. Performed By: #### 5 5454-3 ####[facility] LABCLIA [id number] [place] [address] [place] Lipase SerPl-cCncon 02-05-20 25 Lipase [Catalytic activity/Vol] 20 U/L Normal 16-61 [facility] Comment on above: Order Comment: Carlo kingsley Type: BLOOD SPECIMENOrdering Facility: [facility] Address: [address] [place] [address] Performed By: #### 1 798-8, 3040-3 ####[facility] LABIA [id number] [place] [id number] [place] Tacrolimus Bld-mCncon 2024 Tacrolimus (Bld) [Mass/Vol] 8.7 ng/mL Normal 5.0-20.0 [facility] Comment on above: Order Comment: Speci men Type: BLOOD SPECIMENOrdering Facility: [facility] Address: [address] [place] [place] [address] Result Comment: Ruth vidualized target levels for a given patient will depend on many factors (including the type of organ transplant, time since transplantation, concurrent medications, and other clinical factors), and should be assessed by those health care providers experienced in the management of immunosuppression. Reference ranges and high/low indicator flags are provided as general guidelines only. The treating physician must determine appropriate target levels/dosing based on the specific clinical situation. Test performed by chemiluminescent immunoassay using Ludwig Alinity i. Performed By: #### 1 1253-2 ####[facility] LABCLIA [id number] [place] [id number] [facility] [place] Dick 10-23-2024 [facility] [place] ([id number]) 1965 M Date Time Provider Department 10/23/24 [facility] During your visit today, we recorded the following information about you: Tung Aguilar MD 10/23/2024 8:45 AM Signed Let him know we are finding records of upper scopes performed at [facility] by . Friend Is he sure his last colonoscopy was done therE? Double check where and when he thought he had it done and see if we can get the records. Niki Simpson MA 10/23/2024 11:02 AM Signed Spoke with patient. He states he thought Dr. Barraza did a colonoscopy at the time of the upper GI. I explained to him we don't show record of that. He said he could have been mistaken then thinking the upper GI was the same thing. PAYTON Doll William J, MD 10/23/2024 12:15 PM Signed Would recommend he follow with Dr Barraza for colonoscopy Valentine Lord LPN 10/25/2024 9:36 AM Signed Detailed message left for patient to contact Dr. Barraza's office. Referral faxed to Dr. Barraza. Allergies As of Date: 10/23/2024 Noted Allergy Reaction DOXAZOSIN 04/28/2006 8 - GI Upset DOXYCYCLINE 07/20/2020 2 - Rash PENICILLINS 04/05/2003 Comments: rash Date Reviewed: 10/22/2024 Reviewed by: Niki Simpson MA - Fully Assessed Reason for Visit: Results [95] Primary Visit Diagnosis:Screening for colon cancer [Z12.11] Order(s):CONSULT TO GASTROENTEROLOGY [9010] Order #: [id number]: 1 FUTURE Prescriptions as of 10/25/2024 - ammonium lactate (LAC-HYDRIN) 12 % lotion Apply to affected area as needed for dry skin. - mometasone (ELOCON) 0.1 % cream Apply 1 application to affected area once daily. - mycophenolate Mofetil (CELLCEPT) 500 mg tablet take 1 tablet by mouth twice a day - sildenafil (VIAGRA) 100 mg tablet Take 1 tablet by mouth as needed. - tacrolimus IR (PROGRAF) 1 mg capsule Take (2) capsules by mouth twice daily Problem List As Of Date 10/23/2024 Noted Resolved Diabetes mellitus type I (HCC) [E10.9] 09/17/2005 Essential hypertension [I10] 09/17/2005 Diabetes with renal manifestations [250.4] 10/08/2005 08/16/2012 PURE HYPERCHOLESTEROLEM [E78.00] 10/22/2005 Renal failure [N19] 06/20/2006 MALFUNC VASC DEVICE/CARRIE [T82.598A] 08/26/2006 ORGAN TRANSPLANT,PANCREAS [Z94.83] 04/20/2008 KIDNEY TRANSPLANT STATUS [Z94.0] 04/20/2008 Leukocytopenia, unspecified [D72.819] 07/27/2008 04/17/2023 History of cytomegalovirus infection [Z86.19] 12/29/2008 Dupuytren's Contracture of Hand [M72.0] 08/24/2009 Dupuytren's Disease [M72.0] 09/06/2009 Pain in limb [M79.609] 11/06/2009 04/17/2023 Other Joint Derangement, not Elsewhere Classifi*11/06/2009 Pancreas transplant 04/05/2008 08/16/2012 Dupuytren's contracture of foot [M72.2] 04/17/2023 Prophylactic immunotherapy [Z29.89] 07/13/2012 H/O pancreas transplant ([facility]) [Z94.83] 08/16/2012 08/30/2020 Stiffness of joint, not elsewhere classified, h*10/26/2012 10/17/2022 Neck pain [M54.2] 09/10/2013 04/17/2023 Deafferentation pain [R52] 05/09/2014 Chronic pain [G89.29] 01/18/2015 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, W44.F1XA] 04/16/2022 04/19/2024 Acute gastric erosion [K25.3] 04/16/2022 10/17/2022 Cellulitis of foot [L03.119] 10/17/2022 10/17/2022 Dysphagia, unspecified [R13.10] 04/12/2022 10/17/2022 Gastroesophageal reflux disease [K21.9] 01/01/2022 Gastroparesis [K31.84] 08/13/2022 Local infection of skin and subcutaneous tissue*10/17/2022 10/17/2022 Neuropathy [G62.9] 10/17/2022 04/17/2023 Onychomycosis due to dermatophyte [B35.1] 10/17/2022 10/17/2022 Osteomyelitis (HCC) [M86.9] 10/17/2022 10/17/2022 Osteomyelitis of left foot (HCC) [M86.9] 10/17/2022 04/17/2023 Polyneuropathy due to type 2 diabetes mellitus *10/17/2022 Weakness [R53.1] 10/17/2022 04/17/2023 Immunosuppression (HCC) [D84.9] 04/17/2023 History of osteomyelitis [Z87.39] 04/17/2023 Bezoar [T18.9XXA, W44.F1XA] 06/04/2023 Immunosuppressive management encounter followin*06/05/2023 Thrombocytopenia (HCC) [D69.6] 10/22/2024 Encounter Status:Closed by VALENTINE LORD on 10/25/24 [facility] CNOVon 10-22-2024 CNOV Office Visit (FAMPWS ) HOMAR FALLON ([id number]) 1965 Date Time Provider Department 10/22/24 9:20 AM TUNG AGUILAR During your visit today, we recorded the following information about you: Pulse Blood pressure Weight Height 86/minute 130/80 89.4 kg 1.765 m Tung Aguilar MD 10/22/2024 9:48 AM Signed Patient presents with: 6 Month Exam HPI: Patient presents today for office visit for routine 6 month follow up. Saw Trino Barajas and Leticia Jasso back in August for itchy red rash on lower left arm. Was given oral abx and Rx for clotrimazole. Abx competed. Still using clotrimazole. No longer itches but rash still present. They thought it was either fungal or an erythema migrans. Is better. ED: Continues taking Viagra prn. No issues. Denies chest pain and shortness of breath. Denies dizziness. No swelling. Follows with Nephrology yearly. Doing well. Labs recently done. Sees podiatry. Continues to follow with transplant No longer sees GI. Doing well. Platelets have not changed in almost twenty years. See hematology if worsens. Latest Ref Rng 10/18/2024 WBC 3.70 - 11.00 k/uL 5.73 RBC 4.20 - 6.00 m/uL 5.62 Hemoglobin 13.0 - 17.0 g/dL 15.1 Hematocrit 39.0 - 51.0 % 45.4 MCV 80.0 - 100.0 fL 80.8 MCH 26.0 - 34.0 pg 26.9 MCHC 30.5 - 36.0 g/dL 33.3 RDW-CV 11.5 - 15.0 % 14.2 Platelet Count 150 - 400 k/uL 130 (L) MPV 9.0 - 12.7 fL 10.3 Neut% % 50.1 Abs Neut (ANC) 1.45 - 7.50 k/uL 2.87 Lymph% % 37.5 Abs Lymph 1.00 - 4.00 k/uL 2.15 Butts% % 8.6 Abs Butts <0.87 k/uL 0.49 Eosin% % 2.4 Abs Eosin <0.46 k/uL 0.14 Baso% % 0.9 Abs Baso <0.11 k/uL 0.05 Immature Gran % % 0.5 IMMATURE GRANS (ABS) <0.10 k/uL 0.03 NRBC /100 WBC 0.0 Absolute nRBC <0.01 k/uL <0.01 DTYPE Auto Protein, Total 6.3 - 8.0 g/dL 6.3 Albumin 3.9 - 4.9 g/dL 4.0 Calcium 8.5 - 10.2 mg/dL 9.9 Bilirubin, Total 0.2 - 1.3 mg/dL 0.5 Alkaline Phosphatase 38 - 113 U/L 142 (H) AST 14 - 40 U/L 17 ALT 10 - 54 U/L 17 Glucose 74 - 99 mg/dL 159 (H) BUN 9 - 24 mg/dL 19 Creatinine 0.73 - 1.22 mg/dL 0.73 Sodium 136 - 144 mmol/L 137 Potassium 3.7 - 5.1 mmol/L 3.6 (L) Chloride 98 - 107 mmol/L 106 CO2 22 - 30 mmol/L 24 Anion Gap 8 - 15 mmol/L 7 (L) eGFR >=60 mL/min/1.73m? 104 Hemoglobin A1C 4.3 - 5.6 % 5.6 Estimated Average Glucose mg/dL 114 Amylase 30 - 104 U/L 19 (L) Lipase 16 - 61 U/L 17 Tacrolimus/FK506 5.0 - 20.0 ng/mL 10.5 C-Peptide 1.1 - 4.4 ng/mL 5.1 (H) Legend: (L) Low (H) High MEDICATIONS: Current Outpatient Medications Medication Sig mycophenolate Mofetil (CELLCEPT) 500 mg tablet take 1 tablet by mouth twice a day sildenafil (VIAGRA) 100 mg tablet Take 1 tablet by mouth as needed. tacrolimus IR (PROGRAF) 1 mg capsule Take (2) capsules by mouth twice daily No current facility-administered medications for this visit. 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 Type II or unspecified type diabetes mellitus without mention of complication, not stated as uncontrolled Unspecified essential hypertension PAST SURGICAL HISTORY Procedure Laterality Date AMPUTATION FOREARM THROUGH RADIUS AND ULNA 1991 left ARTERIOVENOUS ANASTOMOSIS OPEN DIRECT 07/08/06 RIGHT FOREARM AV FISTULA CREATION BALLN ANGIOPLASTY,PERC VENOUS 09/08/06 BALLN ANGIOPLASTY,PERC VENOUS 10/08/06 FISTULOGRAM BALLN ANGIOPLASTY,PERC VENOUS 12/05/06 RIGHT BALLN ANGIOPLASTY,PERC VENOUS 01/19/07 BALLN ANGIOPLASTY,PERC VENOUS 04/01/07 BALLN ANGIOPLASTY,PERC VENOUS 10/14/07 COLONOSCOPY FLX DX W/COLLJ SPEC WHEN PFRMD 01/12/2003 Colonoscopy INSJ FRANK VAD REQ 2 CATH 2 SITS W/O SUBQ PORT/ENROLLMENT SERVICES DEAN 09/18/06 LEFT INTERNAL JUGULAR PAST SURGICAL HISTORY OF 07/2008 OS for DM/"macular degeneration" PAST SURGICAL HISTORY OF kidney and pancreas transplant 2007 PAST SURGICAL HISTORY OF 1991 LEFT HAND AMPUTEE PAST SURGICAL HISTORY OF [address] CATH AV DIALYSIS SHUNT 09/08/06 PLACE CATH AV DIALYSIS SHUNT 10/08/06 PLACE CATH AV DIALYSIS SHUNT 12/05/[address] CATH AV DIALYSIS SHUNT 01/19/07 PLACE CATH AV DIALYSIS SHUNT 04/01/07 PLACE CATH AV DIALYSIS SHUNT 10/14/07 RMVL FRANK CVC W/O SUBQ PORT/ENROLLMENT SERVICES DEAN 02/06/07 Removal of left IJ tessio catheters TRANSCATH STENT INIT VESSEL,PERCUT 10/08/06 TRANSCATH STENT INIT VESSEL,PERCUT 01/19/07 FAMILY HISTORY Problem Relation Age of Onset Diabetes Mother Heart Mother Hypertension Father Diabetes Father Prostate Cancer Father age 60 Heart Paternal Grandfather Prostate Cancer Paternal Uncle Prostate Cancer Paternal Uncle Social History Tobacco Use Smoking (more content not included)... Normal [facility] Amylase SerPl-cCncon 025 Amylase [Catalytic activity/Vol] 19 U/L Low 30-104 [facility] Comment on above: Order Comment: Speci men Type: BLOOD SPECIMEN Ordering Facility: [facility] Address: [address] [place] [address] Performed By: #### 2 4362-6 #### [facility] ROOMIA [id number] [address] [place] [address] [place] C peptide SerPl-mCncon 10-18 C peptide [Mass/Vol] 5.1 ng/mL High 1.1-4.4 [facility] Comment on above: Order Comment: Speci men Type: BLOOD SPECIMEN Ordering Facility: [facility] Address: [address] [place] [address] Performed By: #### 1 986-9 #### [facility] [place] [id number] [address] [place] [address] [place] CBC W Auto Differential pane l (Bld)on 10-18-2024 Basophils (Bld) [#/Vol] 0.05 10*3/uL Normal <0.11 [facility] Comment on above: Order Comment: Speci men Type: BLOOD SPECIMEN Ordering Facility: [facility] Address: [address] [place] [address] Performed By: #### 2 4362-6 #### [facility] [id number] [address] [place] [address] [place] Basophils/100 WBC (Bld) 0.9 % Normal [facility] Comment on above: Order Comment: Speci men Type: BLOOD SPECIMEN Ordering Facility: [facility] Address: [address] [place] [address] Performed By: #### 2 4362-6 #### [facility] CLIA [id number] [address] [place] [address] [place] Differential cell count method Nom (Bld) Auto Normal [facility] Comment on above: Order Comment: Speci men Type: BLOOD SPECIMEN Ordering Facility: [facility] Address: [address] [place] [address] Performed By: #### 2 4362-6 #### [facility] CLIA [id number] [address] [place] [address] [place] Eosinophils (Bld) [#/Vol] 0.14 10*3/uL Normal <0.46 [facility] Comment on above: Order Comment: Speci men Type: BLOOD SPECIMEN Ordering Facility: [facility] Address: [address] [place] [address] Performed By: #### 2 4362-6 #### [facility] CLIA [id number] [address] [place] [address] [place] Eosinophils/100 WBC (Bld) 2.4 % Normal [facility] Comment on above: Order Comment: Speci men Type: BLOOD SPECIMEN Ordering Facility: [facility] Address: [address] [place] [address] Performed By: #### 2 4362-6 #### [facility] CLIA [id number] [address] [place] [address] [place] Erythrocyte distribution width (RBC) [Ratio] 14.2 % Normal 11.5-15.0 [facility] Comment on above: Order Comment: Speci men Type: BLOOD SPECIMEN Ordering Facility: [facility] Address: [address] [place] [address] Performed By: #### 2 4362-6 #### [facility] CLIA [id number] [address] [place] [address] [place] Hematocrit (Bld) [Volume fraction] 45.4 % Normal 39.0-51.0 [facility] Comment on above: Order Comment: Speci men Type: BLOOD SPECIMEN Ordering Facility: [facility] Address: [address] [place] [address] Performed By: #### 2 4362-6 #### [facility] CLIA [id number] [address] [place] [address] [place] Hemoglobin (Bld) [Mass/Vol] 15.1 g/dL Normal 13.0-17.0 [facility] Comment on above: Order Comment: Speci men Type: BLOOD SPECIMEN Ordering Facility: [facility] Address: [address] [place] [address] Performed By: #### 2 4362-6 #### [facility] CLIA [id number] [address] [place] [address] [place] Immature granulocytes (Bld) [#/Vol] 0.03 10*3/uL Normal <0.10 [facility] Comment on above: Order Comment: Speci men Type: BLOOD SPECIMEN Ordering Facility: [facility] Address: [address] [place] [address] Performed By: #### 2 4362-6 #### [facility] CLIA [id number] [address] [place] [address] [place] Immature granulocytes/100 WBC (Bld) 0.5 % Normal [facility] Comment on above: Order Comment: Speci men Type: BLOOD SPECIMEN Ordering Facility: [facility] Address: [address] [place] [address] Performed By: #### 2 4362-6 #### [facility] CLIA [id number] [address] [place] [address] [place] Lymphocytes (Bld) [#/Vol] 2.15 10*3/uL Normal 1.00-4.00 [facility] Comment on above: Order Comment: Speci men Type: BLOOD SPECIMEN Ordering Facility: [facility] Address: [address] [place] [address] Performed By: #### 2 4362-6 #### [facility] CLIA [id number] [address] [place] [address] STATES [facility] Lymphocytes/100 WBC (Bld) 37.5 % Normal [facility] Comment on above: Order Comment: Speci men Type: BLOOD SPECIMEN Ordering Facility: [facility] Address: [address] [place] [address] Performed By: #### 2 4362-6 #### [facility] CLIA [id number] [address] [place] [address] [place] MCH (RBC) [Entitic mass] 26.9 pg Normal 26.0-34.0 [facility] Comment on above: Order Comment: Speci men Type: BLOOD SPECIMEN Ordering Facility: [facility] Address: [address] [place] [address] Performed By: #### 2 4362-6 #### [facility] ROOMIA [id number] [address] [place] [address] [place] MCHC (RBC) [Mass/Vol] 33.3 g/dL Normal 30.5-36.0 [facility] Comment on above: Order Comment: Speci men Type: BLOOD SPECIMEN Ordering Facility: [facility] Address: [address] [place] [address] Performed By: #### 2 4362-6 #### [facility] CLIA [id number] [address] [place] [address] [place] MCV (RBC) [Entitic vol] 80.8 fL Normal 80.0-100.0 [facility] Comment on above: Order Comment: Speci men Type: BLOOD SPECIMEN Ordering Facility: [facility] Address: [address] [place] [address] Performed By: #### 2 4362-6 #### [facility] CLIA [id number] [address] [place] [address] [place] Monocytes (Bld) [#/Vol] 0.49 10*3/uL Normal <0.87 [facility] Comment on above: Order Comment: Speci men Type: BLOOD SPECIMEN Ordering Facility: [facility] Address: [address] [place] [address] Performed By: #### 2 4362-6 #### [facility] CLIA [id number] [address] [place] [address] [place] Monocytes/100 WBC (Bld) 8.6 % Normal [facility] Comment on above: Order Comment: Speci men Type: BLOOD SPECIMEN Ordering Facility: [facility] Address: [address] [place] [address] Performed By: #### 2 4362-6 #### [facility] CLIA [id number] [address] [place] [address] [place] Neutrophils (Bld) [#/Vol] 2.87 10*3/uL Normal 1.45-7.50 [facility] Comment on above: Order Comment: Speci men Type: BLOOD SPECIMEN Ordering Facility: [facility] Address: [address] [place] [address] Performed By: #### 2 4362-6 #### [facility] CLIA [id number] [address] [place] [address] [place] Neutrophils/100 WBC (Bld) 50.1 % Normal [facility] Comment on above: Order Comment: Speci men Type: BLOOD SPECIMEN Ordering Facility: [facility] Address: [address] [place] [address] Performed By: #### 2 4362-6 #### [facility] CLIA [id number] [address] [place] [address] [place] Nucleated RBC (Bld) [#/Vol] 10*3/uL Normal <0.01 [facility] Comment on above: Order Comment: Speci men Type: BLOOD SPECIMEN Ordering Facility: [facility] Address: [address] [place] [id number] Performed By: #### 2 4362-6 #### [facility] CLIA [id number] [address] [place] [address] [place] Nucleated RBC/100 WBC (Bld) [Ratio] 0.0 /100 WBC Normal [facility] Comment on above: Order Comment: Speci men Type: BLOOD SPECIMEN Ordering Facility: [facility] Address: [address] [place] [address] Performed By: #### 2 4362-6 #### [facility] CLIA [id number] [address] [place] [address] [place] Platelet mean volume (Bld) [Entitic vol] 10.3 fL Normal 9.0-12.7 [facility] Comment on above: Order Comment: Speci men Type: BLOOD SPECIMEN Ordering Facility: [facility] Address: [address] [place] [address] Performed By: #### 2 4362-6 #### [facility] CLIA [id number] [address] [place] [address] [place] Platelets (Bld) [#/Vol] 130 10*3/uL Low 150-400 [facility] Comment on above: Order Comment: Speci men Type: BLOOD SPECIMEN Ordering Facility: [facility] Address: [address] [place] [address] Performed By: #### 2 4362-6 #### [facility] CLIA [id number] [address] [place] [address] [place] RBC (Bld) [#/Vol] 5.62 10*6/uL Normal 4.20-6.00 [facility] Comment on above: Order Comment: Speci men Type: BLOOD SPECIMEN Ordering Facility: [facility] Address: [address] [place] [address] Performed By: #### 2 4362-6 #### [facility] CLIA [id number] [address] [place] [address] [place] WBC (Bld) [#/Vol] 5.73 10*3/uL Normal 3.70-11.00 [facility] Comment on above: Order Comment: Speci men Type: BLOOD SPECIMEN Ordering Facility: [facility] Address: [address] [place] [address] Performed By: #### 2 4362-6 #### [facility] CLIA [id number] [address] [place] [address] [place] Comprehensive metabolic 2000 panelon 10-18-2024 Albumin [Mass/Vol] 4.0 g/dL Normal 3.9-4.9 [facility] Comment on above: Order Comment: Speci men Type: BLOOD SPECIMENOrdering Facility: [facility] Address: [address] [place] [address] Performed By: #### 2 4323-8 ####[facility] [id number] [place] [address] [place] ALP [Catalytic activity/Vol] 142 U/L High 38-113 [facility] Comment on above: Order Comment: Speci men Type: BLOOD SPECIMENOrdering Facility: [facility] Address: [address] [place] [address] Performed By: #### 2 4323-8 ####[facility] [id number] [place] [address] [place] ALT [Catalytic activity/Vol] 17 U/L Normal 10-54 [facility] Comment on above: Order Comment: Speci men Type: BLOOD SPECIMENOrdering Facility: [facility] Address: [address] [place] [address] Performed By: #### 2 4323-8 ####[facility] [id number] [place] [address] [place] Anion gap [Moles/Vol] 7 mmol/L Low 8-15 [facility] Comment on above: Order Comment: Speci men Type: BLOOD SPECIMENOrdering Facility: [facility] Address: [address] [place] [address] Performed By: #### 2 4323-8 ####[facility]CL[facility] [id number] [place] [address] [place] AST [Catalytic activity/Vol] 17 U/L Normal 14-40 [facility] Comment on above: Order Comment: Speci men Type: BLOOD SPECIMENOrdering Facility: [facility] Address: [address] [place] [address] Performed By: #### 2 4323-8 ####[facility] [id number] [place] [address] [place] Bilirubin [Mass/Vol] 0.5 mg/dL Normal 0.2-1.3 [facility] Comment on above: Order Comment: Speci men Type: BLOOD SPECIMENOrdering Facility: [facility] Address: [address] [place] [address] Performed By: #### 2 4323-8 ####[facility] [id number] [place] [address] [place] Calcium [Mass/Vol] 9.9 mg/dL Normal 8.5-10.2 [facility] Comment on above: Order Comment: Speci men Type: BLOOD SPECIMENOrdering Facility: [facility] Address: [address] [place] [address] Performed By: #### 2 4323-8 ####[facility] [id number] [place] [address] [place] Chloride [Moles/Vol] 106 mmol/L Normal 98-107 [facility] Comment on above: Order Comment: Speci men Type: BLOOD SPECIMENOrdering Facility: [facility] Address: [address] [place], [place] [address] Performed By: #### 2 4323-8 ####[facility] [id number] [address] CO2 [Moles/Vol] 24 mmol/L Normal 22-30 [facility] Comment on above: Order Comment: Speci men Type: BLOOD SPECIMENOrdering Facility: [facility] Address: [address] [place] [address] Performed By: #### 2 4323-8 ####[facility] [id number] [address] Creatinine [Mass/Vol] 0.73 mg/dL Normal 0.73-1.22 [facility] Comment on above: Order Comment: Speci men Type: BLOOD SPECIMENOrdering Facility: [facility] Address: [address] [place] [address] Performed By: #### 2 4323-8 ####[facility] [id number] [address] Creatinine and Glomerular filtration rate.predicted panel (S/P/Bld) 104 mL/min/1.73m??? Normal >=60 [facility] Comment on above: Order Comment: Speci men Type: BLOOD SPECIMENOrdering Facility: [facility] Address: [address] [place] [address] Result Comment: Alee mated Glomerular Filtration Rate (eGFR) is calculated using the 2020 CKD-EPI creatinine equation. This equation utilizes serum creatinine, sex, and age as parameters. The creatinine assay has traceable calibration to isotope dilution-mass spectrometry. Refer to KDIGO guidelines for clinical interpretation. In patients with unstable renal function, e.g. those with acute kidney injury, the eGFR may not accurately reflect actual GFR. Performed By: #### 2 4323-8 ####[facility]ITALWNCLIA [id number] [place] [address] [place] Glucose [Mass/Vol] 159 mg/dL High 74-99 [facility] Comment on above: Order Comment: Speci men Type: BLOOD SPECIMENOrdering Facility: [facility] Address: [address] [place] [address] Result Comment: The [place] Diabetes Association (ADA) provides guidance for cutoff values for fasting glucose and random glucose. The ADA defines fasting as no caloric intake for at least 8 hours. Fasting plasma glucose results between 100 to 125 mg/dL indicate increased risk for diabetes (prediabetes). Fasting plasma glucose results greater than or equal to 126 mg/dL meet the criteria for diagnosis of diabetes. In the absence of unequivocal hyperglycemia, results should be confirmed by repeat testing. In a patient with classic symptoms of hyperglycemia or hyperglycemic crisis, random plasma glucose results greater than or equal to 200 mg/dL meet the criteria for diagnosis of diabetes. Reference: Standards of Medical Care in Diabetes 2016, [place] Diabetes Association. Diabetes Care. 2016.39(Suppl 1). Performed By: #### 2 4323-8 ####[facility]PITALWFRANKYLIDamon [id number] [place] [address] [place] Potassium [Moles/Vol] 3.6 mmol/L Low 3.7-5.1 [facility] Comment on above: Order Comment: Carlo men Type: BLOOD SPECIMENOrdering Facility: [facility] Address: [address] [place] [address] Performed By: #### 2 4323-8 ####[facility]ITALWFRANKYLIA [id number] [place] [address] [place] Protein [Mass/Vol] 6.3 g/dL Normal 6.3-8.0 [facility] Comment on above: Order Comment: Speci men Type: BLOOD SPECIMENOrdering Facility: [facility] Address: [address] [place] [address] Performed By: #### 2 4323-8 ####[facility]ITALWNCLIA [id number] [place] [address] [place] Sodium [Moles/Vol] 137 mmol/L Normal 136-144 [facility] Comment on above: Order Comment: Carlo kingsley Type: BLOOD SPECIMENOrdering Facility: [facility] Address: [address] [place] [address] Performed By: #### 2 4323-8 ####[facility] [id number] [place] [address] [place] Urea nitrogen [Mass/Vol] 19 mg/dL Normal 9-24 [facility] Comment on above: Order Comment: Carlo kingsley Type: BLOOD SPECIMENOrdering Facility: [facility] Address: [address] [place] [address] Performed By: #### 2 4323-8 ####[facility] [facility] [id number] [place] [address] [place] HbA1c (Bld)on 10-18-2024 Average glucose Estimated from glycated hemoglobin (Bld) [Mass/Vol] 114 mg/dL Normal [facility] Comment on above: Order Comment: Carlo kingsley Type: BLOOD SPECIMEN Ordering Facility: [facility] Address: [address] [place] [address] Result Comment: eAG: (Estimated average glucose) is a calculated value from HgbA1c and is district representative of the average blood glucose level in the last 2-3 month period. Performed By: #### 2 4362-6 #### [facility] CLIA [id number] [address] [place] [address] [place] HbA1c (Bld) [Mass fraction] 5.6 % Normal 4.3-5.6 [facility] Comment on above: Order Comment: Carlo kingsley Type: BLOOD SPECIMEN Ordering Facility: [facility] Address: [address] [place] [address] Result Comment: Amer [place] Diabetes Association guidelines indicate that patients with HgbA1c in the range 5.7-6.4% are at increased risk for development of diabetes, and intervention by lifestyle modification may be beneficial. HgbA1c greater or equal to 6.5% is considered diagnostic of diabetes. Performed By: #### 2 4362-6 #### [facility] CLIA [id number] [address] [place] [address] [place] Lipase SerPl-cCncon 10-18-19 25 Lipase [Catalytic activity/Vol] 17 U/L Normal 16-61 [facility] Comment on above: Order Comment: Carlo kingsley Type: BLOOD SPECIMEN Ordering Facility: [facility] Address: [address] [place] [address] Performed By: #### 2 4362-6 #### [facility] CLIA [id number] [address] [place] [address] [place] Tacrolimus Bld-mCncon 2024 Tacrolimus (Bld) [Mass/Vol] 10.5 ng/mL Normal 5.0-20.0 [facility] Comment on above: Order Comment: Carlo kingsley Type: BLOOD SPECIMENOrdering Facility: [facility] Address: [address] [place] [address] Result Comment: Ruth vidualized target levels for a given patient will depend on many factors (including the type of organ transplant, time since transplantation, concurrent medications, and other clinical factors), and should be assessed by those health care providers experienced in the management of immunosuppression. Reference ranges and high/low indicator flags are provided as general guidelines only. The treating physician must determine appropriate target levels/dosing based on the specific clinical situation. Test performed by chemiluminescent immunoassay using Ludwig Alinity i. Performed By: #### 1 1253-2 ####[facility] [id number] [facility] [id number] [id number] [place] Dick 09-08-2024 KALIAN Telephone (FAMWS) HOMAR FALLON ([id number]) 1965 Date Time Provider Department 09/08/24 LETICIA JASSO During your visit today, we recorded the following information about you: Guzman RhodesCourt 09/08/2024 11:23 AM Signed Prescription Refill Information The patient has been identified by name and date of : Yes Caregiver verified no other encounters exist for this prescription request: Yes Caregiver confirmed with patient/requestor that no other refills are due, in the near future, with this provider at this time: Yes The last office visit in the department: 08-23-24 Does the patient have a future office visit with this provider/department: Yes Disp Refills Start End clotrimazole (LOTRIMIN) 1 % cream 12 g 0 08/22/2024 08/29/2024 Sig: Apply to affected area two times a day for 7 days. Sent to pharmacy as: clotrimazole (LOTRIMIN) 1 % cream Class: Normal [facility] [address] [place] Guzman Rhodes September 08, 2024 11:22 AM Allergies As of Date: 09/08/2024 Noted Allergy Reaction DOXAZOSIN 04/28/2006 8 - GI Upset DOXYCYCLINE 07/20/2020 2 - Rash PENICILLINS 04/05/2003 Comments: rash Date Reviewed: 08/23/2024 Reviewed by: Janak Meza LPN - Fully Assessed Reason for Visit: Refill Request [94] Order(s):clotrimazole (LOTRIMIN) 1 % creamApply to affected area two times a day for 7 days.Disp: 12 gRfl: 0 Prescriptions as of 09/08/2024 - clotrimazole (LOTRIMIN) 1 % cream Apply to affected area two times a day for 7 days. - mycophenolate Mofetil (CELLCEPT) 500 mg tablet take 1 tablet by mouth twice a day - sildenafil (VIAGRA) 100 mg tablet Take 1 tablet by mouth as needed. 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] 08/26/2006 ORGAN TRANSPLANT,PANCREAS [Z94.83] 04/20/2008 KIDNEY TRANSPLANT STATUS [Z94.0] 04/20/2008 Leukocytopenia, unspecified [D72.819] 07/27/2008 04/17/2023 History of cytomegalovirus infection [Z86.19] 12/29/2008 Dupuytren's Contracture of Hand [M72.0] 08/24/2009 Dupuytren's Disease [M72.0] 09/06/2009 Pain in limb [M79.609] 11/06/2009 04/17/2023 Other Joint Derangement, not Elsewhere Classifi*11/06/2009 Pancreas transplant 04/05/2008 08/16/2012 Dupuytren's contracture of foot [M72.2] 04/17/2023 Prophylactic immunotherapy [Z29.89] 07/13/2012 H/O pancreas transplant (HCC) [Z94.83] 08/16/2012 08/30/2020 Stiffness of joint, not elsewhere classified, h*10/26/2012 10/17/2022 Neck pain [M54.2] 09/10/2013 04/17/2023 Deafferentation pain [R52] 05/09/2014 Chronic pain [G89.29] 01/18/2015 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, W44.F1XA] 04/16/2022 04/19/2024 Acute gastric erosion [K25.3] 04/16/2022 10/17/2022 Cellulitis of foot [L03.119] 10/17/2022 10/17/2022 Dysphagia, unspecified [R13.10] 04/12/2022 10/17/2022 Gastroesophageal reflux disease [K21.9] 01/01/2022 Gastroparesis [K31.84] 08/13/2022 Local infection of skin and subcutaneous tissue*10/17/2022 10/17/2022 Neuropathy [G62.9] 10/17/2022 04/17/2023 Onychomycosis due to dermatophyte [B35.1] 10/17/2022 10/17/2022 Osteomyelitis (HCC) [M86.9] 10/17/2022 10/17/2022 Osteomyelitis of left foot (HCC) [M86.9] 10/17/2022 04/17/2023 Polyneuropathy due to type 2 diabetes mellitus *10/17/2022 Weakness [R53.1] 10/17/2022 04/17/2023 Immunosuppression (HCC) [D84.9] 04/17/2023 History of osteomyelitis [Z87.39] 04/17/2023 Bezoar [T18.9XXA, W44.F1XA] 06/04/2023 Immunosuppressive management encounter followin*06/05/2023 Prescriptions ordered this encounter Disp Refills Start End CLOTRIMAZOLE 1 % TOPICAL CREAM 12 g 0 09/08/2024 09/15/2024 Route: TOPICAL Sig: Apply to affected area two times a day for 7 days. Medications Discontinued During This Encounter Prescriptions - clotrimazole (LOTRIMIN) 1 % cream (Discontinued) Apply to affected area two times a day for 7 days. Encounter Status:Closed by TUNG AGUILAR on 09/08/24 [facility] Georgette 08-23-2024 TOAN Office Visit (YADYWS ) HOMAR FALLON ([id number]) 1965 M Date Time Provider Department 08/23/24 10:40 AM LETICIA JASSO During your visit today, we recorded the following information about you: Pulse Respiration Blood pressure 79/minute 16/minute 118/72 Leticia Jasso APRN.GERIATRIC SOCIAL WORKER 08/23/2024 8:06 PM Signed This is a 58 year old male who presents today with: Patient presents with: Recheck: Follow up UC- L arm rash HISTORY OF PRESENT ILLNESS: Homar Fallon is a 58 year old male. Patient presents with: Recheck: Follow up UC- L arm rash Pt presents today with complaint of rash on the left forearm. He did present to urgent care on 08/22/24. He was identified as having erythema migrans on the left forearm. He has a doxy and PCN allergy, so he was prescribed ceftin. He went to pick this medication from the pharmacy and per patient was advised by the pharmacy that this is a PCN medication and he should not take this. He has not started the medication. He has not any additional systemic symptoms of lymes disease. 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 Type II or unspecified type diabetes mellitus without mention of complication, not stated as uncontrolled Unspecified essential hypertension PAST SURGICAL HISTORY Procedure Laterality Date AMPUTATION FOREARM THROUGH RADIUS AND ULNA 1991 left ARTERIOVENOUS ANASTOMOSIS OPEN DIRECT 07/08/06 RIGHT FOREARM AV FISTULA CREATION BALLN ANGIOPLASTY,PERC VENOUS 09/08/06 BALLN ANGIOPLASTY,PERC VENOUS 10/08/06 FISTULOGRAM BALLN ANGIOPLASTY,PERC VENOUS 12/05/06 RIGHT BALLN ANGIOPLASTY,PERC VENOUS 01/19/07 BALLN ANGIOPLASTY,PERC VENOUS 04/01/07 BALLN ANGIOPLASTY,PERC VENOUS 10/14/07 COLONOSCOPY FLX DX W/COLLJ SPEC WHEN PFRMD 01/12/2003 Colonoscopy INSJ FRANK VAD REQ 2 CATH 2 SITS W/O SUBQ PORT/ENROLLMENT SERVICES DEAN 09/18/06 LEFT INTERNAL JUGULAR PAST SURGICAL HISTORY OF 07/2008 OS for DM/"macular degeneration" PAST SURGICAL HISTORY OF kidney and pancreas transplant 2007 PAST SURGICAL HISTORY OF 1991 LEFT HAND AMPUTEE PAST SURGICAL HISTORY OF [address] CATH AV DIALYSIS SHUNT 09/08/06 PLACE CATH AV DIALYSIS SHUNT 10/08/06 PLACE CATH AV DIALYSIS SHUNT 12/05/[address] CATH AV DIALYSIS SHUNT 01/19/07 PLACE CATH AV DIALYSIS SHUNT 04/01/07 PLACE CATH AV DIALYSIS SHUNT 10/14/07 RMVL FRANK CVC W/O SUBQ PORT/ENROLLMENT SERVICES DEAN 02/06/07 Removal of left IJ tessio catheters TRANSCATH STENT INIT VESSEL,PERCUT 10/08/06 TRANSCATH STENT INIT VESSEL,PERCUT 01/19/07 ALLERGIES Doxazosin, Doxycycline, and Penicillins MEDICATIONS Current Outpatient Medications Medication Sig cefUROXime (CEFTIN) 500 mg tablet Take 1 tablet by mouth two times a day for 10 days. clotrimazole (LOTRIMIN) 1 % cream Apply to affected area two times a day for 7 days. mycophenolate Mofetil (CELLCEPT) 500 mg tablet take 1 tablet by mouth twice a day sildenafil (VIAGRA) 100 mg tablet Take 1 tablet by mouth as needed. tacrolimus IR (PROGRAF) 1 mg capsule Take (2) capsules by mouth twice daily No current facility-administered medications for this visit. FAMILY HISTORY Problem Relation Age of Onset Diabetes Mother Heart Mother Hypertension Father Diabetes Father Prostate Cancer Father age 60 Heart Paternal Grandfather Prostate Cancer Paternal Uncle Prostate Cancer Paternal Uncle Social History Tobacco Use Smoking status: Never Passive exposure: Never Smokeless tobacco: Never Vaping Use Vaping status: Never Used Substance Use Topics Alcohol use: No Drug use: Not Currently EXAM: BP 118/72 Pulse 79 Resp 16 SpO2 97% PHYSICAL EXAM: General Appearance: Well appearing, alert, in no acute distress, well-hydrated, well nourished.. Skin: Skin color, texture, turgor normal. + erythema migrans left forearm. Head: Normocephalic, no masses, lesions, tenderness or abnormalities. Eyes: Anicteric sclera. Pupils are equally round and reactive to light. Extraocular movements are intact. . Lungs: Lungs clear to auscultation. No wheezing, rhonchi, rales.. Heart: RRR without murmur, gallop, or rubs. No ectopy. Neurologic: Gait normal. Re ASSESSMENT/PLAN: 1. Erythema migrans - ICD9: 529.1, ICD10: K14.1 Discussed with patient that Ceftin is not a penicillin. Discussed with patient that there is a small chance of cross-reactivity, approximately 2%, between penicillins and cephalosporins. Upon chart review, it does appear the patient did have Ancef in the past. Patient is going to go ahead and start the Ceftin. He is aware to monitor for any signs and symptoms of an allergic reaction. He is aware that if he starts to break out in a rash, to stop the Ceftin, and (more content not included)... Normal [facility] CNOVon 08-22-2024 CNOV Office Visit (UCWSTR ) HOMAR FALLON ([id number]) 1965 M Date Time Provider Department 08/22/24 9:45 AM YOLY ZUNIGA [facility] During your visit today, we recorded the following information about you: Temperature Pulse Respiration Blood pressure 97 degrees 83/minute 16/minute 133/80 Weight 86.9 kg Yoly Zuniga PA 08/22/2024 9:49 AM Signed This note was created using EcoStartriter. Subjective Homar Fallon is a 58 year old male. HPI 58-year-old male presents for rash to left arm. Of note, patient is a kidney/pancreas transplant patient. Patient states he noticed a rash on his left arm over the past few days. It is a bull's-eye looking rash. He denies knowing if the tick was attached, but was around a dog on Friday. He thought it might also be ringworm. He states it is not really itchy or painful. He has not put anything on the rash. No new lotions, detergents, body washes. No fevers, body aches or other complaints today. 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 Type II or unspecified type diabetes mellitus without mention of complication, not stated as uncontrolled Unspecified essential hypertension PAST SURGICAL HISTORY Procedure Laterality Date AMPUTATION FOREARM THROUGH RADIUS AND ULNA 1991 left ARTERIOVENOUS ANASTOMOSIS OPEN DIRECT 07/08/06 RIGHT FOREARM AV FISTULA CREATION BALLN ANGIOPLASTY,PERC VENOUS 09/08/06 BALLN ANGIOPLASTY,PERC VENOUS 10/08/06 FISTULOGRAM BALLN ANGIOPLASTY,PERC VENOUS 12/05/06 RIGHT BALLN ANGIOPLASTY,PERC VENOUS 01/19/07 BALLN ANGIOPLASTY,PERC VENOUS 04/01/07 BALLN ANGIOPLASTY,PERC VENOUS 10/14/07 COLONOSCOPY FLX DX W/COLLJ SPEC WHEN PFRMD 01/12/2003 Colonoscopy INSJ FRANK VAD REQ 2 CATH 2 SITS W/O SUBQ PORT/ENROLLMENT SERVICES DEAN 09/18/06 LEFT INTERNAL JUGULAR PAST SURGICAL HISTORY OF 07/2008 OS for DM/"macular degeneration" PAST SURGICAL HISTORY OF kidney and pancreas transplant 2007 PAST SURGICAL HISTORY OF 1991 LEFT HAND AMPUTEE PAST SURGICAL HISTORY OF [address] CATH AV DIALYSIS SHUNT 09/08/06 PLACE CATH AV DIALYSIS SHUNT 10/08/06 PLACE CATH AV DIALYSIS SHUNT 12/05/[address] CATH AV DIALYSIS SHUNT 01/19/07 PLACE CATH AV DIALYSIS SHUNT 04/01/07 PLACE CATH AV DIALYSIS SHUNT 10/14/07 RMVL FRANK CVC W/O SUBQ PORT/ENROLLMENT SERVICES DEAN 02/06/07 Removal of left IJ tessio catheters TRANSCATH STENT INIT VESSEL,PERCUT 10/08/06 TRANSCATH STENT INIT VESSEL,PERCUT 01/19/07 ALLERGIES Doxazosin, Doxycycline, and Penicillins MEDICATIONS mycophenolate Mofetil (CELLCEPT) 500 mg tablet take 1 tablet by mouth twice a day sildenafil (VIAGRA) 100 mg tablet Take 1 tablet by mouth as needed. tacrolimus IR (PROGRAF) 1 mg capsule Take (2) capsules by mouth twice daily cefUROXime (CEFTIN) 500 mg tablet Take 1 tablet by mouth two times a day for 10 days. clotrimazole (LOTRIMIN) 1 % cream Apply to affected area two times a day for 7 days. FAMILY HISTORY Problem Relation Age of Onset Diabetes Mother Heart Mother Hypertension Father Diabetes Father Prostate Cancer Father age 60 Heart Paternal Grandfather Prostate Cancer Paternal Uncle Prostate Cancer Paternal Uncle Social History Tobacco Use Smoking status: Never Passive exposure: Never Smokeless tobacco: Never Vaping Use Vaping status: Never Used Substance Use Topics Alcohol use: No Drug use: Not Currently Review of Systems Constitutional: Negative for chills and fever. HENT: Negative for congestion and sore throat. Respiratory: Negative for cough and shortness of breath. Gastrointestinal: Negative for diarrhea and vomiting. Skin: Positive for rash. Objective BP 133/80 Pulse 83 Temp 36.1 ?C (97 ?F) (Right Tympanic) Resp 16 Wt 86.9 kg (191 lb 9.3 oz) SpO2 98% BMI 27.89 kg/m? Physical Exam Vitals and nursing note reviewed. Constitutional: General: He is not in acute distress. Appearance: Normal appearance. He is not toxic-appearing. Eyes: Conjunctiva/sclera: Conjunctivae normal. Cardiovascular: Rate and Rhythm: Normal rate and regular rhythm. Pulmonary: Effort: Pulmonary effort is normal. Breath sounds: Normal breath sounds. Skin: General: Skin is warm and dry. Findings: Rash present. Comments: Bull's-eye rash noted to dorsal left forearm. Outer dark red ring with clearing and then an erythematous center noted. Some flaking of the skin. No lymphatic streaking. No fluctuance or abscess. Neurological: Mental Status: He is alert. Assessment and Plan ASSESSMENT/PLAN: 1. Rash - ICD9: 782.1, ICD10: R21 -Based on exam, suspect erythema migrans rash. Classic bull's-eye rash. Patient was outside and around a dog earlier this week. -Will cover for Lyme disease. Patient anand (more content not included)... Normal [facility] URINALYSIS, REFLEX MICROSCOP ICon 01-29-2024 Bilirubin Ql (U) Negative Negative [facility] Clarity (Unsp spec) Clear Clear [facility] Color (U) Light Yellow Yellow [facility] Glucose Test strip (U) [Mass/Vol] Negative Trace, Negative [facility] Hemoglobin Ql (U) Negative Negative, Trace [facility] Interpretation and review of laboratory results Normal [facility] Ketones Ql (U) Negative Negative, Trace [facility] Leukocyte esterase Test strip Ql (U) Negative Negative, 25 Michael/uL [facility] Nitrite Ql (U) Negative Negative [facility] pH (U) 6.0 [pH] 5.0 - 8.0 [facility] Protein (U) [Mass/Vol] Negative Trace, Negative [facility] Specific gravity (U) [Rel density] 1.010 1.005 - 1.030 [facility] Urobilinogen Ql (U) Normal Normal [facility] NM Stomach Views for gastric emptying solid phase W radionuclide Isabell 12-10-2023 [facility] XR CHEST 2V FRONTAL/LATon [facility] XR UPPER GI SINGLE CONTRASTo n 06-02-2023 XR UPPER GI SINGLE CONTRAST * * *Final Report* * * DATE OF EXAM: Jun 02 2023 10:43AM RHX [id number] - XR UPPER GI SINGLE CONTRAST / PROCEDURE REASON: sheri bezoar * * * * Physician Interpretation * * * * UPPER GASTROINTESTINAL SERIES INDICATION: Bezoar. RESULT: Technique: Single contrast upper GI evaluation following administration of thin barium by mouth. Esophagus: Tertiary esophageal contractions were noted. No obstruction, detected ulceration or mucosal abnormality. The gastroesophageal junction is normally located. Stomach: Rugal folds pattern is within expected limits considering the limitation of the single contrast study. No ulceration or mass is detected. Contrast passes readily through the pyloric channel into the proximal duodenum. Duodenum: Duodenal C sweep is within normal limits with normally located ligament of Treitz. The fold pattern is normal. No detected ulceration, stenosis or mass. Reflux: No evidence of gastroesophageal reflux during the study. Fluoro time: 6:18 IMPRESSION: 1. No obvious gastric abnormality on this single contrast upper GI series. 2. Tertiary esophageal contractions which can be seen with esophageal dysmotility. Accessories Repairer: TC Transcribe Date/Time: Jun 02 2023 12:23P Dictated by : ALYSSA MUNOZ MD This examination was interpreted and the report reviewed and electronically signed by: ALYSSA MUNOZ MD on Jun 02 2023 12:29PM EST [id number] Normal [facility] EGD Reporton 05-07-2023 EGD Report [facility] Medical Records Department [address] [place] [address] EGD Report MR#: [id number] Acct: [id number] Name: HOMAR FALLON Rep #: [id number] : 1965 57 From: David Barraza DO PCP: Dr. Tung Aguilar MD Status:[facility] Patient Name: Homar Fallon Procedure Date: 05/07/2023 7:38 AM Date of : 1965 Age: 57 Procedure: Upper GI endoscopy Indications: Epigastric abdominal pain Providers: David Barraza DO Medicines: Monitored Anesthesia Care Patient Profile: This is a 57 year old male. Refer to note in patient chart for documentation of history and physical. Patient has symptoms of chronic epigastric abdominal pain and chronic nausea. Complications: No immediate complications. Procedure: Pre-Anesthesia Assessment: - Prior to the procedure, a History and Physical was performed, and patient medications and allergies were reviewed. The patient is competent. The risks and benefits of the procedure and the sedation options and risks were discussed with the patient. All questions were answered and informed consent was obtained. Patient identification and proposed procedure were verified by the physician in the pre-procedure area. Mental Status Examination: alert and oriented. Airway Examination: normal oropharyngeal airway and neck mobility. Respiratory Examination: clear to auscultation. CV Examination: normal. Prophylactic Antibiotics: The patient does not require prophylactic antibiotics. Prior Anticoagulants: The patient has taken no previous anticoagulant or antiplatelet agents. ASA Grade Assessment: II - A patient with mild systemic disease. After reviewing the risks and benefits, the patient was deemed in satisfactory condition to undergo the procedure. The anesthesia plan was to use monitored anesthesia care (MAC). Immediately prior to administration of medications, the patient was re-assessed for adequacy to receive sedatives. The heart rate, respiratory rate, oxygen saturations, blood pressure, adequacy of pulmonary ventilation, and response to care were monitored throughout the procedure. The physical status of the patient was re-assessed after the procedure. After obtaining informed consent, the endoscope was passed under direct vision. Throughout the procedure, the patient's blood pressure, pulse, and oxygen saturations were monitored continuously. The Endoscope was introduced through the mouth, and advanced to the second part of duodenum. The upper GI endoscopy was accomplished without difficulty. The patient tolerated the procedure well. Scope In: 7:49:08 AM Scope Out: 7:50:35 AM Total Procedure Duration Time 0 hours 1 minute 27 seconds Findings: The examined esophagus was normal. A large amount of a trichobezoar was found in the entire examined stomach. The duodenal bulb was normal. Impression: - Normal esophagus. - A large amount of a trichobezoar in the stomach. - Normal duodenal bulb. - No specimens collected. Recommendation: - Discharge patient to home (ambulatory). - Full liquid diet. - Continue present medications. Procedure Code(s): --- Professional --- 92766, Esophagogastroduodenoscopy, flexible, transoral; diagnostic, including collection of specimen(s) by brushing or washing, when performed (separate procedure) CPT copyright 2017 [employer]. All rights reserved. The codes documented in this report are preliminary and upon computer language coder review may be revised to meet current compliance requirements. David Barraza DO 05/07/2023 8:03:55 AM This report has been signed electronically. Number of Addenda: 0 Note Initiated On: 05/07/2023 7:38 AM 05/07/23 0804 Date David Barraza DO Cosigner Signature: Date (if indicated) CC: Dr. Tung Aguilar MD; David Barraza DO Date Dictated: 05/07/23737 Date Transcribed: Accessories Repairer: DELLA Signed Normal [facility] Gastroenterology Visit Repor ton 02-18-2023 Gastroenterology Visit Report [facility] Gastroenterology [address] [place] [address] OFFICE VISIT Date of Service: 02/18/23 MR#: [id number] Acct: [id number] Name: HOMRA FALLON Rep #: [id number] : 1965 Provider: AMIE Ann Age/Sex: 57/M Location: [facility] Status: Signed with Addenda ADDENDUM by AMIE Ann on 03/18/23 at 1137 HPI Details: [id number] 03/18/23 1137 Date Griselda Ann NP cc: * Signed Intake Vital Signs 07/29/22 11:12 02/18/23 08:11 Height 5 ft 9 in 5 ft 9 in Weight: 186 lb BMI 27.4 BP 113/68 Blood Pressure Location Rt brachial Position Sitting Pulse 82 Pulse Oximetry (%) 95 Oxygen Delivery Method room air Intake Visit Reasons: 6 MO FU Chief Complaint: f/u gastroparesis Allergies iodine Allergy (Intermediate, Verified 02/18/23 08:11) Rash doxazosin Adverse Reaction (Verified 02/18/23 08:11) Rash doxycycline Adverse Reaction (Verified 02/18/23 08:11) Rash Penicillins Adverse Reaction (Verified 02/18/23 08:11) Rash Medications mycophenolate mofetil 500 mg tablet 500 mg PO BID ANTIREJECTION 07/09/20 [History Confirmed 02/18/23] tacrolimus 1 mg capsule, immediate-release 2 mg PO DAILY@2000 antirejection med 07/10/20 [History Confirmed 02/18/23] tacrolimus 1 mg capsule, immediate-release 3 mg PO DAILY@0800 anitrejection med 07/10/20 [History Confirmed 02/18/23] omeprazole 40 mg capsule,delayed release 40 mg PO DAILY 12/26/21 [History Confirmed 02/18/23] hqfyrc-sdqkqwws-gtfmhax 36,000-114,000-180,000 unit capsule,delay rel (Creon) See Rx Instructions PO TID 3 months #270 caps 08/13/22 [Rx Confirmed 02/18/23] PFSH Medical History Amputation of left hand Cataracts, bilateral Diabetes ESRD (end stage renal disease) GERD (gastroesophageal reflux disease) History of end stage renal disease History of Holter monitoring History of renal dialysis Hypertension Leg cramps Non-smoker Wears glasses Surgical History History of esophagogastroduodenoscopy (EGD) Hx of arteriovenostomy for renal dialysis Hx of colonoscopy Hx of foot surgery Kidney transplant recipient Pancreas transplanted Family History (Reviewed 02/18/23 @ 08:16 by Griselda Ann ACCOUNTS RECEIVABLE SUPERVISOR, ACCOUNTS RECEIVABLE SUPERVISOR-C) Father Cancer Hypertension Diabetes Mother Hypertension Diabetes Social History (Reviewed 02/18/23 @ 08:16 by Griselda Ann ACCOUNTS RECEIVABLE SUPERVISOR, ACCOUNTS RECEIVABLE SUPERVISOR-C) Smoking Status: Never smoker alcohol intake: never HPI HPI Chief Complaint: f/u gastroparesis Details: HOMAR FALLON, is a 57 M who presents to the office today for 6 month f/u gastroparesis. He reports he is doing very well. He continues to take Creon pancreatic enzymes 1 cap with snack and 2 caps with meals. No longer taking cellulase or Coke. 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 At his last EGD in 07/2022 almost all of the large phytobezoar was removed endoscopically.???Creon was started then. He hasn't needed metoclopramide. He denies early satiety, bloating, nausea, heartburn, abdominal pain. He is having a normal bowel movement without any signs of dumping or constipation.???No dysphagia. Clement established with this clinic 02.27.22 with referral from ENT for further evaluation of GERD and dysphagia with esophageal pain and emesis. This had been an ongoing issue for many months/years with worsening around 2020. H pancreatic/kidney transplants in 2007 r/t DM type I with complication of renal disease requiring dialysis. Laryngoscopy performed 12.20.21 with severe edema of the interarytenoid space noted. Barium swallow 12.25.21 finding small sliding hernia with GERD; tablet of barium trapped at GE junction. EGD 04.05.22 noting tortuous esophagus; irregular Z-Line 38cm; non-bleeding erosive gastropathy; large amount of trichobezoar; retained food in duodenum. Gastric emptying study 05.09.22 timed at >200 minutes (12-56 normal). EGD 07.29.22 noting small hiatal hernia; large amount of food residue in stomach. No specimens collected. ROS Const Constitutional: No fatigue ENT ENT: No difficulty swallowing Gastro GI: No abdominal pain, belching, bloating, change in bowel habits, change in stool character, coffee ground emesis, constipation, cramping, diarrhea, heartburn, difficulty swallowing, feeling full early, excessive flatus, incontinent of stools, Vomiting blood/hematemesis, Blood in stool, loose stools, Black,tarry stools, nausea/dyspepsia, pain with swallowing, vomiting or other Musc Musculoskeletal: No joint pain Skin Skin: No yellowing of the eye or itc (more content not included)... Normal [facility] URINALYSIS, REFLEX MICROSCOP ICon 02-04-2023 Bilirubin Ql (U) Negative Negative [facility] Clarity (Unsp spec) Clear Clear Miguel [facility] Color (U) Light Yellow Yellow [facility] Glucose Test strip (U) [Mass/Vol] Negative Trace, Negative [facility] Hemoglobin Ql (U) Negative Negative, Trace [facility] Ketones Ql (U) Negative Negative, Trace [facility] Leukocyte esterase Test strip Ql (U) Negative Negative, 25 Michael/uL [facility] Nitrite Ql (U) Negative Negative [facility] pH (U) 6.0 [pH] 5.0 - 8.0 [facility] Protein (U) [Mass/Vol] Negative Trace, Negative [facility] Specific gravity (U) [Rel density] 1.008 1.005 - 1.030 [facility] Urobilinogen Ql (U) Negative Negative [facility] CNOVon 12-10-2022 CNOV Office Visit (AKURFL ) HOMAR FALLON ([id number]) 1965 M TRN Date Time Provider Department 12/10/22 10:45 AM ISHA COLEMAN During your visit today, we recorded the following information about you: Blood pressure Weight Height 132/70 85.3 kg 1.765 m Isha Coleman MD 12/12/2022 10:16 AM Signed ESTABLISHED PATIENT OFFICE VISIT PATIENT INFO: Homar Fallon 57 year old HPI 12/10/2022 CC: psa Patient presents with family member and PSA has come back to previous range at 0.98 Dipstick urine negative Voiding issues are as before and he will to see me as needed moving ahead Past Urology Hx: 09/09/2022 Pt CC: psa VOIDING SYMPTOMS: Nocturia x1 and stream is good and voids every 3-4 hours approximately without gross hematuria or dysuria Dipstick urine negative Presents with his sister today and she says she helps him out and patient speaks slowly Father and 2 uncles with history of prostate cancer Is seeing me because of high PSA of 4.37 and only previous PSA 2018 when it was a little below 1 Has history of gastric bezoar and was taking things orally that could have irritated the bowels the sister said and even with the ultrasound he had of his prostate some irritation My prostate exam without any nodules Discussed significant rise in PSA but he would like to try Bactrim for 1 week and repeat PSA in 3 months to see if it trends down which could be very possible Follow-up 3 months for repeat prostate exam Labs/Radiology/Procedures: August 12, 2022-ultrasound prostate-volume 31.2 cc and possible slightly hypoechoic nodule measuring 1.3 cm July 26, 2022-PSA-4.37 April 10, 2018-PSA-0.84 Creatinine Date Value Ref Range Status 12/02/2022 0.92 0.73 - 1.22 mg/dL Final PSA (ng/mL) Date Value 12/02/2022 0.98 04/10/2018 0.84 PSA Screening (ng/mL) Date Value 07/26/2022 4.37 Color (no units) Date Value 01/10/2022 Yellow 07/13/2015 Yellow Clarity (no units) Date Value 01/10/2022 Clear 07/13/2015 Clear Glucose, Urine Date Value 01/10/2022 Negative 07/13/2015 Negative mg/dL Bilirubin, Urine (no units) Date Value 01/10/2022 Negative 07/13/2015 Negative Ketones, Urine (no units) Date Value 01/10/2022 Negative 07/13/2015 Negative Specific Hawkeye, Ur (no units) Date Value 01/10/2022 1.011 07/13/2015 1.005 Hemoglobin/Blood,Ur Date Value 01/10/2022 Negative 07/13/2015 Negative pH, Urine (no units) Date Value 01/10/2022 6.0 07/13/2015 6.0 Protein, Urine Date Value 01/10/2022 Negative 07/13/2015 Negative mg/dL Urobilinogen (no units) Date Value 01/10/2022 Negative 07/13/2015 Normal Nitrites (no units) Date Value 01/10/2022 Negative 07/13/2015 Negative Leukest (no units) Date Value 07/13/2015 Negative Leuk Esterase (no units) Date Value 01/10/2022 Negative Review of Systems Genitourinary: See HPI. All other systems reviewed and are negative. 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 Type II or unspecified type diabetes mellitus without mention of complication, not stated as uncontrolled Unspecified essential hypertension FAMILY HISTORY Problem Relation Age of Onset Diabetes Mother Heart Mother Hypertension Father Diabetes Father Prostate Cancer Father age 60 Heart Paternal Grandfather Prostate Cancer Paternal Uncle Prostate Cancer Paternal Uncle SOCIAL HISTORY Social History Tobacco Use Smoking status: Never Smokeless tobacco: Never Substance Use Topics Alcohol use: No MEDICATIONS: tacrolimus IR (PROGRAF) 1 mg capsule TAKE 3 CAPSULES BY MOUTH EVERY DAY IN THE MORNING AND TAKE 2 CAPSULES IN THE EVENING CREON 36,000-114,000- 180,000 unit delayed release capsule TAKE 1 TABLET BY MOUTH 3 TIMES DAILY WITH MEALS AND/OR WITH SNACKS mycophenolate Mofetil (CELLCEPT) 500 mg tablet TAKE 1 TABLET BY MOUTH TWICE DAILY omeprazole (PRILOSEC) 20 mg capsule Take (2) capsules by mouth daily Physical Exam HENT: Head: Normocephalic and atraumatic. Nose: Nose normal. Neck: Trachea: No tracheal deviation. Pulmonary: Effort: Pulmonary effort is normal. No respiratory distress. Musculoskeletal: General: No deformity. Skin: General: Skin is warm. Neurological: Mental Status: He is alert. Gait: Gait is intact. Psychiatric: Mood and Affect: Mood and affect normal. Cognition and Memory: Memory normal. Risk/Benefit Discussion: FOLLOW UP (0cCSF6r; 3s): Return if symptoms worsen or fail to improve. ASSESSMENT/PLAN: 1. Elevated PSA - ICD9: 790.93, ICD10: R97.20 Isha Coleman Please note: This note has been produced using speech recogni (more content not included)... Normal [facility] UA DIP, URINE (POC)on 2022 BILIRUBIN UA (POCT) Negative Negative [facility] CLARITY UA (POCT) Clear [facility] COLOR UA (POCT) Yellow [facility] GLUCOSE UA (POCT) Negative Negative mg/dL [facility] HEMOGLOBIN/BLOOD UA (POCT) Negative Negative [facility] KETONE UA (POCT) Negative Negative mg/dL [facility] LEUKOCYTES UA (POCT) Negative Negative [facility] NITRITE UA (POCT) Negative Negative [facility] PH UA (POCT) 6.5 4.5 - 8.0 [facility] Protein Ql (U) Negative Negative mg/dL [facility] SPECIFIC GRAVITY UA (POCT) 1.010 1.005 - 1.030 [facility] UROBILINOGEN UA (POCT) 0.2 E.U./dL Normal E.U./dL [facility] CNOVon 09-09-2022 CNOV Office Visit (AKURFL ) HOMAR FALLON ([id number]) 1965 M [facility] Date Time Provider Department 09/09/22 10:00 AM ISHA COLEMAN During your visit today, we recorded the following information about you: Respiration Weight Height 16/minute 86.2 kg 1.753 m Isha Coleman MD 09/12/2022 9:35 AM Signed NEW PATIENT HISTORY AND PHYSICAL EXAM PATIENT INFO: Homar Fallon 57 year old HPI 09/09/2022 Pt CC: psa VOIDING SYMPTOMS: Nocturia x1 and stream is good and voids every 3-4 hours approximately without gross hematuria or dysuria Dipstick urine negative Presents with his sister today and she says she helps him out and patient speaks slowly Father and 2 uncles with history of prostate cancer Is seeing me because of high PSA of 4.37 and only previous PSA 2018 when it was a little below 1 Has history of gastric bezoar and was taking things orally that could have irritated the bowels the sister said and even with the ultrasound he had of his prostate some irritation My prostate exam without any nodules Discussed significant rise in PSA but he would like to try Bactrim for 1 week and repeat PSA in 3 months to see if it trends down which could be very possible Follow-up 3 months for repeat prostate exam Past Uology History: Labs/Radiology/Procedures: August 12, 2022-ultrasound prostate-volume 31.2 cc and possible slightly hypoechoic nodule measuring 1.3 cm July 26, 2022-PSA-4.37 April 10, 2018-PSA-0.84 Creatinine Date Value Ref Range Status 07/26/2022 0.87 0.73 - 1.22 mg/dL Final PSA (ng/mL) Date Value 04/10/2018 0.84 PSA Screening (ng/mL) Date Value 07/26/2022 4.37 Color (no units) Date Value 01/10/2022 Yellow 07/13/2015 Yellow Clarity (no units) Date Value 01/10/2022 Clear 07/13/2015 Clear Glucose, Urine Date Value 01/10/2022 Negative 07/13/2015 Negative mg/dL Bilirubin, Urine (no units) Date Value 01/10/2022 Negative 07/13/2015 Negative Ketones, Urine (no units) Date Value 01/10/2022 Negative 07/13/2015 Negative Specific Hawkeye, Ur (no units) Date Value 01/10/2022 1.011 07/13/2015 1.005 Hemoglobin/Blood,Ur Date Value 01/10/2022 Negative 07/13/2015 Negative pH, Urine (no units) Date Value 01/10/2022 6.0 07/13/2015 6.0 Protein, Urine Date Value 01/10/2022 Negative 07/13/2015 Negative mg/dL Urobilinogen (no units) Date Value 01/10/2022 Negative 07/13/2015 Normal Nitrites (no units) Date Value 01/10/2022 Negative 07/13/2015 Negative Leukest (no units) Date Value 07/13/2015 Negative Leuk Esterase (no units) Date Value 01/10/2022 Negative Review of Systems Constitutional: Negative. HENT: Negative. Eyes: Negative. Respiratory: Negative. Cardiovascular: Negative. Gastrointestinal: Negative. Endocrine: Negative. Genitourinary: See HPI Musculoskeletal: Negative. Skin: Negative. Allergic/Immunologic: Negative. Neurological: Negative. Hematological: Negative. Psychiatric/Behavioral: Negative. 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 Type II or unspecified type diabetes mellitus without mention of complication, not stated as uncontrolled Unspecified essential hypertension FAMILY HISTORY Problem Relation Age of Onset Diabetes Mother Heart Mother Hypertension Father Diabetes Father Prostate Cancer Father age 60 Heart Paternal Grandfather Prostate Cancer Paternal Uncle Prostate Cancer Paternal Uncle SOCIAL HISTORY Social History Tobacco Use Smoking status: Never Smokeless tobacco: Never Substance Use Topics Alcohol use: No MEDICATIONS: CREON 36,000-114,000- 180,000 unit delayed release capsule TAKE 1 TABLET BY MOUTH 3 TIMES DAILY WITH MEALS AND/OR WITH SNACKS mycophenolate Mofetil (CELLCEPT) 500 mg tablet TAKE 1 TABLET BY MOUTH TWICE DAILY omeprazole (PRILOSEC) 20 mg capsule Take (2) capsules by mouth daily sildenafil (VIAGRA) 100 mg tablet Take 1 tablet by mouth as needed. tacrolimus IR (PROGRAF) 1 mg capsule TAKE 3 CAPSULES BY MOUTH EVERY DAY IN THE MORNING AND TAKE 2 CAPSULES IN THE EVENING sulfamethoxazole-trimethoprim (BACTRIM DS,SEPTRA DS) 800-160 mg per tablet Take 1 tablet by mouth twice daily. lidocaine viscous (LIDOCAINE VISCOUS) 2 % solution Take 15 mL by mouth every 3 hours as needed for pain. (Patient not taking: Reported on 08/08/2022) Physical Exam Constitutional: Comments: Patient speaks slowly HENT: Head: Normocephalic and atraumatic. Mouth/Throat: Pharynx: No oropharyngeal exudate. Pulmonary: Effort: Pulmonary effort is normal. Genitourinary: Prostate: Enlarged: 1.5+, no nodule. Rectum: Norm (more content not included)... Normal [facility] UA DIP, URINE (POC)on 2021 BILIRUBIN UA (POCT) Negative Negative [facility] CLARITY UA (POCT) Clear [facility] COLOR UA (POCT) Yellow [facility] GLUCOSE UA (POCT) Negative Negative mg/dL [facility] HEMOGLOBIN/BLOOD UA (POCT) Negative Negative [facility] KETONE UA (POCT) Negative Negative mg/dL [facility] LEUKOCYTES UA (POCT) Negative Negative [facility] NITRITE UA (POCT) Negative Negative [facility] PH UA (POCT) 6.0 4.5 - 8.0 [facility] Protein Ql (U) Negative Negative mg/dL [facility] SPECIFIC GRAVITY UA (POCT) 1.020 1.005 - 1.030 [facility] UROBILINOGEN UA (POCT) 0.2 E.U./dL Normal E.U./dL [facility] Gastroenterology Visit Repor ton 08-13-2022 Gastroenterology Visit Report [facility] [address] [place] [address] OFFICE VISIT Date of Service: 08/13/22 MR#: [id number] Acct: [id number] Name: HOMAR FALLON Rep #: [id number] : 1965 Provider: David Barraza DO Age/Sex: 56/M Location: [facility] Status: Signed Intake Vital Signs 05/31/22 08:31 07/29/22 11:12 Height 5 ft 9 in 5 ft 9 in Intake Visit Reasons: 2 WK FU Allergies iodine Allergy (Intermediate, Verified 08/13/22 08:24) Rash doxazosin Adverse Reaction (Verified 08/13/22 08:24) Rash doxycycline Adverse Reaction (Verified 08/13/22 08:24) Rash Penicillins Adverse Reaction (Verified 08/13/22 08:24) Rash Medications mycophenolate mofetil 500 mg tablet 500 mg PO BID ANTIREJECTION 07/09/20 [History Confirmed 07/25/22] tacrolimus 1 mg capsule, immediate-release 2 mg PO DAILY@2000 antirejection med 07/10/20 [History Confirmed 07/25/22] tacrolimus 1 mg capsule, immediate-release 3 mg PO DAILY@0800 anitrejection med 07/10/20 [History Confirmed 07/25/22] omeprazole 40 mg capsule,delayed release 40 mg PO DAILY 12/26/21 [History Confirmed 07/25/22] lhvilt-begwqwwa-vazcrjl 36,000-114,000-180,000 unit capsule,delay rel (Creon) See Rx Instructions PO TID 3 months #270 caps 08/13/22 [Rx Confirmed 08/13/22] [facility] Medical History (Updated 08/13/22 @ 08:[address] David Barraza DO) Amputation of left hand Cataracts, bilateral Diabetes ESRD (end stage renal disease) GERD (gastroesophageal reflux disease) History of end stage renal disease History of Holter monitoring History of renal dialysis Hypertension Leg cramps Non-smoker Wears glasses Surgical History History of esophagogastroduodenoscopy (EGD) Hx of arteriovenostomy for renal dialysis Hx of colonoscopy Hx of foot surgery Kidney transplant recipient Pancreas transplanted Family History Father Cancer Hypertension Diabetes Mother Hypertension Diabetes Social History Smoking Status: Never smoker alcohol intake: never HPI HPI Details: HOMAR FALLON, is a 56 M who presents to the office today for Follow up. Clement established with this clinic 02.27.22 with referral from ENT for further evaluation of GERD and dysphagia with esophageal pain and emesis. This has been an ongoing issue for many months/years with worsening around 2020. He has been having difficulty with swallowing food, pills and liquids. Omeprazole 40mg QD started following episode and he has had a reduction of emesis and esophageal pain. Continues to have dysphagia and pays attention to what he is eating. H pancreatic/kidney transplants in 2007 r/t DM type I with complication of renal disease requiring dialysis, he has had no further complications, transplant team last seen and it was a good visit. FH father prostate cancer; female breast cancers aunt/cousins. Laryngoscopy performed 12.20.21 with severe edema of the interarytenoid space noted. Barium swallow 12.25.21 finding small sliding hernia with GERD; tablet of barium trapped at GE junction. EGD 04.05.22 noting tortuous esophagus; irregular ZLine 38cm; non-bleeding erosive gastropathy; large amount of trichobezoar; retained food in duodenum. Gastric emptying study 05.09.22 timed at >200 minutes (12-56 normal). EGD 07.29.22 noting small hiatal hernia; large amount of food residue in stomach. No specimens collected. Start Creon. Plan LV 05.31.22: Gastroparesis ??? start reglan 5mg TID. Repeat EGD to determine bezoar status. Continues to have difficulty with diarrhea, belching and bloating but feels this it related to his Coke regimen. These symptoms are much improved and is pleased with the results. He is using one Creon with meals and one with snacks. Since endoscopy he has not been using reglan; he has not had a return of symptoms with stopping this. ROS Const Constitutional: No fatigue, malaise, night sweats, weight change, sleep problems, abnormal sleep pattern or change in appetite ENT ENT: No difficulty swallowing, hoarseness or sore throat Cardio Cardiology: No chest pain at rest Gastro GI: No belching, change in bowel habits, change in stool character, coffee ground emesis, constipation, cramping, heartburn, difficulty swallowing, feeling full early, excessive flatus, incontinent of stools, Vomiting blood/hematemesis, Blood in stool, loose stools, Black,tarry stools, nausea/dyspepsia, pain with swallowing, vomiting or other Musc Musculoskeletal: No joint pain Skin Skin: No yellowing of the eye or itchy eyes Neuro Neurology: No behavioral changes Psych Psychiatric: No abnormal sleep pattern, No anxiety, No behavioral zhang (more content not included)... Normal [facility] US PROSTATEon 08-12-2022 US PROSTATE * * *Final Report* * * DATE OF EXAM: Aug 12 2022 1:28PM MM 1056 - US PROSTATE / PROCEDURE REASON: Elevated PSA * * * * Physician Interpretation * * * * ULTRASOUND OF THE PROSTATE GLAND HISTORY: Elevated PSA TECHNIQUE: Transrectal prostate gland ultrasound. Grayscale and color Doppler images. Images were obtained and stored in a permanent archive. COMPARISON: none RESULT: Prostate size: 4.8 x 5 x 2.5 cm yields an estimated volume of 31.2 cc. Prostate gland is heterogeneous with possible slightly hypoechoic nodule measuring up to 1.3 cm. - IMPRESSION: The prostate gland is enlarged with a possible nodule measuring up to 1.3 cm. Accessories Repairer: TC Transcribe Date/Time: Aug 12 2022 1:54P Dictated by : LEO STONE MD This examination was interpreted and the report reviewed and electronically signed by: LEO STONE MD on Aug 12 2022 1:55PM EST [id number] [facility] EGD Reporton 07-29-2022 EGD Report [facility] Medical Records Department [address] [place] [address] EGD Report MR#: [id number] Acct: [id number] Name: HOMAR FALLON Rep #: [id number] : 1965 56 From: David Friend DO PCP: Dr. Tung Aguilar MD Status:[facility] Patient Name: Homar Fallon Procedure Date: 07/29/2022 11:57 AM Date of : 1965 Age: 56 Procedure: Upper GI endoscopy Indications: Epigastric abdominal pain, Failure to respond to medical treatment Providers: David Barraza DO Medicines: Monitored Anesthesia Care Patient Profile: This is a 56 year old male. Refer to note in patient chart for documentation of history and physical. Patient has symptoms of chronic abdominal distention, chronic epigastric abdominal pain and chronic dyspepsia. Complications: No immediate complications. Procedure: Pre-Anesthesia Assessment: - Prior to the procedure, a History and Physical was performed, and patient medications and allergies were reviewed. The patient is competent. The risks and benefits of the procedure and the sedation options and risks were discussed with the patient. All questions were answered and informed consent was obtained. Patient identification and proposed procedure were verified by the physician in the pre-procedure area. Mental Status Examination: alert and oriented. Airway Examination: normal oropharyngeal airway and neck mobility. Respiratory Examination: clear to auscultation. CV Examination: normal. Prophylactic Antibiotics: The patient does not require prophylactic antibiotics. Prior Anticoagulants: The patient has taken no previous anticoagulant or antiplatelet agents. ASA Grade Assessment: III - A patient with severe systemic disease. After reviewing the risks and benefits, the patient was deemed in satisfactory condition to undergo the procedure. The anesthesia plan was to use monitored anesthesia care (MAC). Immediately prior to administration of medications, the patient was re-assessed for adequacy to receive sedatives. The heart rate, respiratory rate, oxygen saturations, blood pressure, adequacy of pulmonary ventilation, and response to care were monitored throughout the procedure. The physical status of the patient was re-assessed after the procedure. After obtaining informed consent, the endoscope was passed under direct vision. Throughout the procedure, the patient's blood pressure, pulse, and oxygen saturations were monitored continuously. The gastroscope was introduced through the mouth, and advanced to the second part of duodenum. Scope In: 12:08:27 PM Scope Out: 12:10:18 PM Total Procedure Duration Time 0 hours 1 minute 51 seconds Findings: The examined esophagus was normal. A small hiatal hernia was present. A large amount of food (residue) was found in the entire examined stomach. No gross lesions were noted in the first portion of the duodenum. Impression: - Normal esophagus. - Small hiatal hernia. - A large amount of food (residue) in the stomach. - No gross lesions in the first portion of the duodenum. - No specimens collected. Recommendation: - Discharge patient to home. - Resume previous diet. - Continue present medications. - Use Creon 3 tablets PO TID with meals daily. Procedure Code(s): --- Professional --- 12068, Esophagogastroduodenoscopy, flexible, transoral; diagnostic, including collection of specimen(s) by brushing or washing, when performed (separate procedure) CPT copyright 2017 [employer]. All rights reserved. The codes documented in this report are preliminary and upon computer language coder review may be revised to meet current compliance requirements. David Barraza DO 07/29/2022 12:20:49 PM This report has been signed electronically. Number of Addenda: 0 Note Initiated On: 07/29/2022 11:57 AM 07/29/22 1221 Date David Barraza DO Cosigner Signature: Date (if indicated) CC: Dr. Tung Aguilar MD; David Barraza DO Date Dictated: 07/29/22 1157 Date Transcribed: Accessories Repairer: DELLA Signed Normal [facility] URINALYSIS, REFLEX MICROSCOP ICon 01-10-2022 Bilirubin Ql (U) Negative Negative [facility] Clarity (Unsp spec) Clear Clear Miguel [facility] Color (U) Yellow Yellow [facility] Glucose Test strip (U) [Mass/Vol] Negative Negative [facility] Hemoglobin Ql (U) Negative Negative [facility] Ketones Ql (U) Negative Negative [facility] Leukocyte esterase Test strip Ql (U) Negative Negative [facility] Nitrite Ql (U) Negative Negative [facility] pH (U) 6.0 [pH] 5.0 - 8.0 [facility] Protein (U) [Mass/Vol] Negative Negative [facility] Specific gravity (U) [Rel density] 1.011 1.005 - 1.030 [facility] Urobilinogen Ql (U) Negative Negative [facility] Vital Signs Date Time Vital Sign Value Performing Clinician Ray louie 02-07-2025 08:18-0400 Body height 175.3 cm Mehran Urrutia APRN.GERIATRIC SOCIAL WORKER Work Phone: [facility] 02-07-2025 08:18-0400 Body mass index (BMI) [Ratio] 29.14 kg/m2 Mehran Urrutia APRN.GERIATRIC SOCIAL WORKER Work Phone: [facility] 02-07-2025 08:18-0400 Body weight 89.5 kg Mehran Urrutia APRN.GERIATRIC SOCIAL WORKER Work Phone: [facility] 02-07-2025 08:18-0400 Diastolic blood pressure 68 mm[Hg] Mehran Urrutia APRN.GERIATRIC SOCIAL WORKER Work Phone: [facility] 02-07-2025 08:18-0400 Heart rate 87 /min Mehran Urrutia APRN.GERIATRIC SOCIAL WORKER Work Phone: [facility] 02-07-2025 08:18-0400 Systolic blood pressure 122 mm[Hg] Mehran Urrutia APRN.GERIATRIC SOCIAL WORKER Work Phone: [facility] 10-22-2024 09:12-0500 Body height 176.5 cm Tung Aguilar MD Work Phone: [facility] 10-22-2024 09:12-0500 Body mass index (BMI) [Ratio] 28.69 kg/m2 Tung Aguilar MD Work Phone: [facility] 10-22-2024 09:12-0500 Body weight 89.4 kg Tung Aguilar MD Work Phone: [facility] 10-22-2024 09:12-0500 Diastolic blood pressure 80 mm[Hg] Tung Aguilar MD Work Phone: [facility] 10-22-2024 09:12-0500 Heart rate 86 /min Tung Aguilar MD Work Phone: [facility] 10-22-2024 09:12-0500 SaO2% (BldA) [Mass fraction] 97 % Tung Aguilar MD Work Phone: [facility] 10-22-2024 09:12-0500 Systolic blood pressure 130 mm[Hg] Tung Aguilar MD Work Phone: [facility] 08-23-2024 10:24-0500 Diastolic blood pressure 72 mm[Hg] Leticia Haagen AIRLINE CUSTOMER SERVICE AGENT.GERIATRIC SOCIAL WORKER Work Phone: [facility] 08-23-2024 10:24-0500 Heart rate 79 /min Leticia Haagen AIRLINE CUSTOMER SERVICE AGENT.GERIATRIC SOCIAL WORKER Work Phone: [facility] 08-23-2024 10:24-0500 Respiratory rate 16 /min Leticia Haagen AIRLINE CUSTOMER SERVICE AGENT.GERIATRIC SOCIAL WORKER Work Phone: [facility] 08-23-2024 10:24-0500 SaO2% (BldA) [Mass fraction] 97 % Leticia Haagen AIRLINE CUSTOMER SERVICE AGENT.GERIATRIC SOCIAL WORKER Work Phone: [facility] 08-23-2024 10:24-0500 Systolic blood pressure 118 mm[Hg] Leticia Haagen AIRLINE CUSTOMER SERVICE AGENT.GERIATRIC SOCIAL WORKER Work Phone: [facility] 08-22-2024 09:35-0500 Body mass index (BMI) [Ratio] 27.89 kg/m2 Krislyn Aberegg PA Work Phone: [facility] 08-22-2024 09:35-0500 Body temperature 97 [degF] Krislyn Aberegg PA Work Phone: [facility] 08-22-2024 09:35-0500 Body weight 86.9 kg Krislyn Aberegg PA Work Phone: [facility] 08-22-2024 09:35-0500 Diastolic blood pressure 80 mm[Hg] Krislyn Aberegg PA Work Phone: [facility] 08-22-2024 09:35-0500 Heart rate 83 /min Krislyn Aberegg PA Work Phone: [facility] 08-22-2024 09:35-0500 Respiratory rate 16 /min Krislyn Aberegg PA Work Phone: [facility] 08-22-2024 09:35-0500 SaO2% (BldA) [Mass fraction] 98 % Krislyn Aberegg PA Work Phone: [facility] 08-22-2024 09:35-0500 Systolic blood pressure 133 mm[Hg] Krislyn Aberegg PA Work Phone: [facility] 01-29-2024 08:29-0400 Body height 176.5 cm Mehran Urrutia APRN.GERIATRIC SOCIAL WORKER Work Phone: [facility] 01-29-2024 08:29-0400 Body mass index (BMI) [Ratio] 28.91 kg/m2 Mehran Urrutia APRN.GERIATRIC SOCIAL WORKER Work Phone: [facility] 01-29-2024 08:29-0400 Body temperature 98.2 [degF] Mehran Urrutia APRN.GERIATRIC SOCIAL WORKER Work Phone: [facility] 01-29-2024 08:29-0400 Body weight 90.1 kg Mehran Urrutia APRN.GERIATRIC SOCIAL WORKER Work Phone: [facility] 01-29-2024 08:29-0400 Diastolic blood pressure 66 mm[Hg] Mehran Urrutia APRN.GERIATRIC SOCIAL WORKER Work Phone: [facility] 01-29-2024 08:29-0400 Heart rate 80 /min Mehran Urrutia APRN.GERIATRIC SOCIAL WORKER Work Phone: [facility] 01-29-2024 08:29-0400 Systolic blood pressure 118 mm[Hg] Mehran Urrutia APRN.GERIATRIC SOCIAL WORKER Work Phone: [facility] 12-19-2023 12:54-0400 Body height 175.3 cm Sandrine Julien MD Work Phone: [facility] 12-19-2023 12:54-0400 Body weight 89.99 kg Sandrine Julien MD Work Phone: [facility] 12-19-2023 12:54-0400 Diastolic blood pressure 63 mm[Hg] Sandrine Julien MD Work Phone: [facility] 12-19-2023 12:54-0400 Heart rate 84 /min Sandrine Julien MD Work Phone: [facility] 12-19-2023 12:54-0400 Systolic blood pressure 114 mm[Hg] Sandrine Julien MD Work Phone: [facility] 06-20-2023 14:31-0400 Body height 175.3 cm Sandrine Julien MD Work Phone: [facility] 06-20-2023 14:31-0400 Body weight 86.91 kg Sandrine Julien MD Work Phone: [facility] 06-20-2023 14:31-0400 Diastolic blood pressure 59 mm[Hg] Sandrine Julien MD Work Phone: [facility] 06-20-2023 14:31-0400 Heart rate 78 /min Sandrine Julien MD Work Phone: [facility] 06-20-2023 14:31-0400 Systolic blood pressure 119 mm[Hg] Sandrine Julien MD Work Phone: [facility] 06-03-2023 09:15-0400 Body height 175.3 cm Pacc 1 [facility] 06-03-2023 08:49-0400 Body temperature 97.5 [degF] Pacc 1 [facility] 06-03-2023 08:49-0400 Body weight 90.36 kg Pacc 1 [facility] 06-03-2023 08:49-0400 Diastolic blood pressure 70 mm[Hg] Pacc 1 [facility] 06-03-2023 08:49-0400 Heart rate 84 /min Pacc 1 [facility] 06-03-2023 08:49-0400 SaO2% (BldA) [Mass fraction] 99 % Pacc 1 [facility] 06-03-2023 08:49-0400 Systolic blood pressure 112 mm[Hg] Pacc 1 [facility] 05-30-2023 13:56-0400 Body height 175.3 cm Sandrine Julien MD Work Phone: [facility] 05-30-2023 13:56-0400 Body weight 90.67 kg Sandrine Julien MD Work Phone: [facility] 05-30-2023 13:56-0400 Diastolic blood pressure 59 mm[Hg] Sandrine Julien MD Work Phone: [facility] 05-30-2023 13:56-0400 Heart rate 75 /min Sandrine Julien MD Work Phone: [facility] 05-30-2023 13:56-0400 Systolic blood pressure 133 mm[Hg] Sandrine Julien MD Work Phone: [facility] 05-07-2023 08:10-0400 Body temperature 97.9 [degF] Dr. Tung Aguilar Work Phone: 7(424)[phone] [place] [address] 05-07-2023 08:10-0400 Diastolic blood pressure 61 mm[Hg] Dr. Tung Aguilar Work Phone: 8(718)[phone] [place] [address] 05-07-2023 08:10-0400 Heart rate 75 /min Dr. Tung Aguilar Work Phone: 1(869)066-726134 [place] [address] 05-07-2023 08:10-0400 Respiratory rate 16 /min Dr. Tung Aguilar Work Phone: 8(056)148-086734 [place] [address] 05-07-2023 08:10-0400 SaO2% (BldA) [Mass fraction] 97 % Dr. Tung Aguilar Work Phone: [facility] 05-07-2023 08:10-0400 Systolic blood pressure 100 mm[Hg] Dr. Tung Aguilar Work Phone: 1(478)626-403156 [place] [address] 05-07-2023 07:05-0400 Body height 175.[address] Tung Aguilar Work Phone: [facility] 05-07-2023 07:05-0400 Body mass index (BMI) [Ratio] 29.8 kg/m2 Dr. Tung Aguilar Work Phone: 5(668)[phone] [place] [address] 05-07-2023 07:05-0400 Body weight 91.[address] Tung Aguilar Work Phone: [facility] 04-17-2023 09:36-0400 Diastolic blood pressure 60 mm[Hg] Tung Aguilar MD Work Phone: [facility] 04-17-2023 09:36-0400 Systolic blood pressure 116 mm[Hg] Tung Aguilar MD Work Phone: [facility] 04-17-2023 09:09-0400 Body height 175.3 cm Tung Aguilar MD Work Phone: [facility] 04-17-2023 09:09-0400 Body weight 90.99 kg Tung Aguilar MD Work Phone: [facility] 04-17-2023 09:09-0400 Heart rate 67 /min Tung Aguilar MD Work Phone: [facility] 04-17-2023 09:09-0400 SaO2% (BldA) [Mass fraction] 95 % Tung Aguilar MD Work Phone: [facility] 02-18-2023 08:11-0400 Body mass index (BMI) [Ratio] 27.4 kg/m2 Dr. Tung Aguilar Work Phone: [facility] 02-18-2023 08:11-0400 Body weight 84.[address] Tung Aguilar Work Phone: [facility] 02-18-2023 08:11-0400 Diastolic blood pressure 68 mm[Hg] Dr. Tung Aguilar Work Phone: [facility] 02-18-2023 08:11-0400 Heart rate 82 /min Dr. Tung Aguilar Work Phone: [facility] 02-18-2023 08:11-0400 SaO2% (BldA) [Mass fraction] 95 % Dr. Tung Aguilar Work Phone: [facility] 02-18-2023 08:11-0400 Systolic blood pressure 113 mm[Hg] Dr. Tung Aguilar Work Phone: [facility] 02-04-2023 08:21-0400 Body height 175.3 cm Mehran Urrutia AIRLINE CUSTOMER SERVICE AGENT.GERIATRIC SOCIAL WORKER Work Phone: [facility] 02-04-2023 08:21-0400 Body temperature 97.2 [degF] Mehran Urrutia AIRLINE CUSTOMER SERVICE AGENT.GERIATRIC SOCIAL WORKER Work Phone: [facility] 02-04-2023 08:21-0400 Body weight 93.62 kg Mehran Urrutia AIRLINE CUSTOMER SERVICE AGENT.GERIATRIC SOCIAL WORKER Work Phone: [facility] 02-04-2023 08:21-0400 Diastolic blood pressure 71 mm[Hg] Mehran Urrutia AIRLINE CUSTOMER SERVICE AGENT.GERIATRIC SOCIAL WORKER Work Phone: [facility] 02-04-2023 08:21-0400 Heart rate 81 /min Mehran Urrutia AIRLINE CUSTOMER SERVICE AGENT.GERIATRIC SOCIAL WORKER Work Phone: [facility] 02-04-2023 08:21-0400 Systolic blood pressure 112 mm[Hg] Mehran Urrutia AIRLINE CUSTOMER SERVICE AGENT.GERIATRIC SOCIAL WORKER Work Phone: [facility] 12-10-2022 10:49-0500 Body height 176.5 cm Isha Coleman MD Work Phone: [facility] 12-10-2022 10:49-0500 Body weight 85.28 kg Isha Coleman MD Work Phone: [facility] 12-10-2022 10:49-0500 Diastolic blood pressure 70 mm[Hg] Isha Coleman MD Work Phone: [facility] 12-10-2022 10:49-0500 Systolic blood pressure 132 mm[Hg] Isha Coleman MD Work Phone: [facility] 10-17-2022 10:09-0500 Diastolic blood pressure 64 mm[Hg] Tung Aguilar MD Work Phone: [facility] 10-17-2022 10:09-0500 Systolic blood pressure 128 mm[Hg] Tung Aguilar MD Work Phone: [facility] 10-17-2022 09:37-0500 Body height 175.3 cm Tung Aguilar MD Work Phone: [facility] 10-17-2022 09:37-0500 Body weight 92.99 kg Tung Aguilar MD Work Phone: [facility] 10-17-2022 09:37-0500 Heart rate 63 /min Tung Aguilar MD Work Phone: [facility] 10-17-2022 09:37-0500 SaO2% (BldA) [Mass fraction] 95 % Tung Aguilar MD Work Phone: [facility] 09-09-2022 09:46-0500 Body height 175.3 cm Isha Coleman MD Work Phone: [facility] 09-09-2022 09:46-0500 Body weight 86.18 kg Isha Coleman MD Work Phone: [facility] 09-09-2022 09:46-0500 Respiratory rate 16 /min Isha Coleman MD Work Phone: [facility] 08-08-2022 13:59-0400 Body weight 86.18 kg NA Almanza PA-C Work Phone: [facility] 08-08-2022 13:59-0400 Diastolic blood pressure 62 mm[Hg] NA Almanza PA-C Work Phone: [facility] 08-08-2022 13:59-0400 Heart rate 85 /min NA Almanza PA-C Work Phone: [facility] 08-08-2022 13:59-0400 Respiratory rate 16 /min NA Almanza PA-C Work Phone: [facility] 08-08-2022 13:59-0400 SaO2% (BldA) [Mass fraction] 96 % NA Almanza PA-C Work Phone: [facility] 08-08-2022 13:59-0400 Systolic blood pressure 128 mm[Hg] NA Almanza PA-C Work Phone: [facility] 04-19-2022 08:25-0400 Body height 175.[address] Tung Aguilar Work Phone: [facility] Work Phone: 04-19-2022 08:25-0400 Body mass index (BMI) [Ratio] 28.9 kg/m2 Dr. Tung Aguilar Work Phone: [facility] Work Phone: 04-19-2022 08:25-0400 Body weight 88.[address] Tung Aguilar Work Phone: [facility] Work Phone: 04-19-2022 08:25-0400 Diastolic blood pressure 72 mm[Hg] Dr. Tung Aguilar Work Phone: [facility] Work Phone: 04-19-2022 08:25-0400 Heart rate 78 /min Dr. Tung Aguilar Work Phone: [facility] Work Phone: 04-19-2022 08:25-0400 SaO2% (BldA) [Mass fraction] 96 % Dr. Tung Aguilar Work Phone: [facility] Work Phone: 04-19-2022 08:25-0400 Systolic blood pressure 137 mm[Hg] Dr. Tung Aguilar Work Phone: [facility] Work Phone: 04-16-2022 15:37-0400 Diastolic blood pressure 60 mm[Hg] Tung Aguilar MD Work Phone: [facility] 04-16-2022 15:37-0400 Systolic blood pressure 110 mm[Hg] Tung Aguilar MD Work Phone: [facility] 04-16-2022 14:51-0400 Body weight 88 kg Tung Aguilar MD Work Phone: [facility] 04-16-2022 14:51-0400 Heart rate 75 /min Tung Aguilar MD Work Phone: [facility] 04-16-2022 14:51-0400 Respiratory rate 16 /min Tung Aguilar MD Work Phone: [facility] 04-16-2022 14:51-0400 SaO2% (BldA) [Mass fraction] 98 % Tung Aguilar MD Work Phone: [facility] 04-05-2022 07:39-0400 Body temperature 97.5 [degF] Dr. Tung Aguilar Work Phone: [facility] Work Phone: 04-05-2022 07:39-0400 Diastolic blood pressure 70 mm[Hg] Dr. Tung Aguilar Work Phone: [facility] Work Phone: 04-05-2022 07:39-0400 Heart rate 70 /min Dr. Tung Aguilar Work Phone: [facility] Work Phone: 04-05-2022 07:39-0400 Respiratory rate 16 /min Dr. Tung Aguilar Work Phone: [facility] Work Phone: 04-05-2022 07:39-0400 SaO2% (BldA) [Mass fraction] 96 % Dr. Tung Aguilar Work Phone: [facility] Work Phone: 04-05-2022 07:39-0400 Systolic blood pressure 137 mm[Hg] Dr. Tung Aguilar Work Phone: [facility] Work Phone: 04-05-2022 06:32-0400 Body height 175.[address] Tung Aguilar Work Phone: [facility] Work Phone: 04-05-2022 06:32-0400 Body mass index (BMI) [Ratio] 28.3 kg/m2 Dr. Tung Aguilar Work Phone: [facility] Work Phone: 04-05-2022 06:32-0400 Body weight [address] Tung Aguilar Work Phone: [facility] Work Phone: 01-10-2022 09:48-0400 Body height 175.3 cm Mehran Urrutia AIRLINE CUSTOMER SERVICE AGENT.GERIATRIC SOCIAL WORKER Work Phone: [facility] 01-10-2022 09:48-0400 Body temperature 97.3 [degF] Mehran Urrutia AIRLINE CUSTOMER SERVICE AGENT.GERIATRIC SOCIAL WORKER Work Phone: [facility] 01-10-2022 09:48-0400 Body weight 87.09 kg Mehran Urrutia AIRLINE CUSTOMER SERVICE AGENT.GERIATRIC SOCIAL WORKER Work Phone: [facility] 01-10-2022 09:48-0400 Diastolic blood pressure 71 mm[Hg] Mehran Urrutia AIRLINE CUSTOMER SERVICE AGENT.GERIATRIC SOCIAL WORKER Work Phone: [facility] 01-10-2022 09:48-0400 Heart rate 78 /min Mehran Urrutia AIRLINE CUSTOMER SERVICE AGENT.GERIATRIC SOCIAL WORKER Work Phone: [facility] 01-10-2022 09:48-0400 Systolic blood pressure 116 mm[Hg] Mehran Urrutia AIRLINE CUSTOMER SERVICE AGENT.GERIATRIC SOCIAL WORKER Work Phone: [facility] Encounters Encounter Date Encounter Type Care Provider Facility Start: 08-03-2025 ambulatory ALICIA A SUPPWALLACE Facility:[facility] Start: 08-02-2025 ambulatory ALICIA A SUPPAN Facility:[facility] Start: 08-02-2025 End: 08-02-2025 ambulatory ALICIA A SUPPWALLACE Facility:[facility] Start: 07-28-2025 End: 07-28-2025 ambulatory MEHRAN URRUTIA Facility:[facility] Start: 05-11-2025 End: 05-11-2025 ambulatory TUNG AGUILAR Facility:[facility] Start: 05-11-2025 Patient encounter procedure TUNG AGUILAR [facility] Start: 05-09-2025 End: 05-09-2025 ambulatory MEHRAN URRUTIA Facility:[facility] Start: 03-16-2025 End: 03-18-2025 Refill Mehran Urrutia AIRLINE CUSTOMER SERVICE AGENT.GERIATRIC SOCIAL WORKER Work Phone: [facility] Comment on above: Refill Request Start: 03-10-2025 End: 03-10-2025 ambulatory [facility] Start: 03-10-2025 End: 03-10-2025 Patient encounter procedure Tung Aguilar MD Work Phone: [facility] Comment on above: Population Health Na vigation Outreach (Timothy Ardon ) Start: 02-07-2025 End: 02-07-2025 Patient encounter procedure Mehran Urrutia APRN.GERIATRIC SOCIAL WORKER Work Phone: [facility] Comment on above: Kidney replaced by t ransplant (HCC) (Primary Dx); 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); 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); Thrombocytopenia; Pure hypercholesterolemia; Aftercare following organ transplant; Orthostatic hypotension; Screening for genitourinary condition Start: 02-07-2025 End: 02-10-2025 ambulatory Mehran Urrutia APRN.GERIATRIC SOCIAL WORKER Work Phone: [facility] Start: 02-04-2025 End: 02-04-2025 ambulatory MEHRAN URRUTIA Facility:[facility] Start: 02-03-2025 End: 02-03-2025 Orders Only Mehran Urrutia APRN.GERIATRIC SOCIAL WORKER Work Phone: [facility] Comment on above: Kidney replaced by t ransplant (HCC) (Primary Dx) Start: 10-23-2024 End: 10-25-2024 Telephone encounter Tung Aguilar MD Work Phone: [facility] Comment on above: Results Start: 10-22-2024 End: 10-22-2024 Patient encounter procedure Tung Aguilar MD Work Phone: [facility] Comment on above: Essential hypertensi on (Primary Dx); 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); Pure hypercholesterolemia; 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); Gastroparesis; Kidney replaced by transplant; 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); Immunosuppression (HCC); Thrombocytopenia (HCC); Dermatitis Start: 10-22-2024 End: 10-22-[facility] Start: 10-18-2024 End: 10-18-2024 ambulatory MEHRAN Annamaria URRUTIA Facility:[facility] Start: 09-08-2024 End: 09-08-2024 Telephone encounter Leticia Jasso APRN.GERIATRIC SOCIAL WORKER Work Phone: [facility] Comment on above: Refill Request Start: 08-23-2024 End: 08-23-2024 ambulatory LETICIA HALORENA Facility:[facility] Start: 08-23-2024 End: 08-23-2024 Office outpatient visit 25 minutes Leticia Jasso AIRLINE CUSTOMER SERVICE AGENT.GERIATRIC SOCIAL WORKER Work Phone: [facility] Comment on above: Erythema migrans (Pr imary Dx) Start: 08-22-2024 End: 08-22-2024 ambulatory [facility] Facility:[facility] Start: 08-22-2024 End: 08-22-2024 Patient encounter procedure Yoly CORBIN Work Phone: [facility] Comment on above: Rash (Primary Dx) Start: 06-15-2024 End: 06-18-2024 Refill Mehran Urrutia AIRLINE CUSTOMER SERVICE AGENT.GERIATRIC SOCIAL WORKER Work Phone: [facility] Comment on above: Refill Request Start: 01-29-2024 ambulatory eMhran agee AIRLINE CUSTOMER SERVICE AGENT.GERIATRIC SOCIAL WORKER Work Phone: [facility] Start: 01-29-2024 End: 01-29-2024 Patient encounter procedure Mehran Urrutia AIRLINE CUSTOMER SERVICE AGENT.GERIATRIC SOCIAL WORKER Work Phone: [facility] Comment on above: Kidney replaced by t ransplant (Primary Dx); Need for prophylactic immunotherapy; 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); 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); Aftercare following organ transplant; Thrombocytopenia (HCC) Start: 12-27-2023 Refill Mehran agee AIRLINE CUSTOMER SERVICE AGENT.GERIATRIC SOCIAL WORKER Work Phone: [facility] Comment on above: Refill Request Start: 12-19-2023 End: 12-19-2023 Patient encounter procedure Sandrine Julien MD Work Phone: [facility] Surgery Comment on above: Gastroparesis (Prima ry Dx) Start: 12-10-2023 End: 12-10-2023 Subsequent hospital visit by physician [facility] Comment on above: Gastroparesis [K31.8 4] Start: 08-14-2023 ambulatory Rosa Eaton ach MA [facility] Comment on above: Population Health Na vigation Outreach ([facility]) Start: 08-12-2023 Refill Mehran agee APRN.GERIATRIC SOCIAL WORKER Work Phone: [facility] Comment on above: Refill Request results Start: 07-15-2023 ambulatory Daviddebi Barraza Facility :[facility] Start: 06-20-2023 End: 06-20-2023 Patient encounter procedure Sandrine Julien MD Work Phone: General Surgery Comment on above: Gastroparesis (Prima ry Dx) Start: 06-03-2023 End: 06-03-2023 Admission to establishment [address] Start: 06-03-2023 End: 06-03-2023 ambulatory [facility] 1 Pre Admission [facility] Comment on above: Pre-op evaluation (P rimary Dx); Essential hypertension; Pure hypercholesterolemia; Gastroesophageal reflux disease without esophagitis; Kidney replaced by transplant; 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) Start: 06-03-2023 End: 06-03-2023 Preprocedural examination done Pac 1 [facility] Work Phone: Start: 06-02-2023 End: 06-02-2023 Preprocedural examination done [employer]r [employer] Work Phone: [facility] Start: 06-02-2023 End: 06-02-2023 Subsequent hospital visit by physician Xr [facility] Work Phone: Radiology Comment on above: Gastric bezoar, init ial encounter [T18.2XXA] Start: 06-02-2023 ambulatory SANDRINE JULIEN Facility:[id number] Start: 06-02-2023 End: 06-02-2023 Subsequent hospital visit by physician Gi/Gu [facility] Comment on above: Bezoar, initial enco unter [T18.9XXA] Start: 05-30-2023 End: 05-30-2023 Patient encounter procedure Sandrine Julien MD Work Phone: General Surgery Comment on above: Bezoar, initial enco unter (Primary Dx); Gastroparesis due to secondary diabetes (HCC) Start: 05-30-2023 ambulatory Sandrine Julien MD Work Phone: General Surgery Comment on above: 06/04/23 Pre-Op Teaching Start: 05-30-2023 Preprocedural examin ation done Sandrine Julien MD Work Phone: [facility] Start: 05-07-2023 ambulatory David Barraza Facility :[facility] Start: 05-07-2023 End: 05-07-2023 [facility] Start: 05-07-2023 Non-patient / Non-visit Dr. Ynes Aguilar Work Phone: [facility] Start: 05-07-2023 End: 05-07-2023 Admission to same day surgery center Dr. Tung Aguilar Work Phone: [facility] Work Phone: Start: 05-07-2023 End: 05-07-[address] 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 Tung Aguilar Work Phone: [facility] Work Phone: Start: 02-04-2023 ambulatory Mehran agee AIRLINE CUSTOMER SERVICE AGENT.GERIATRIC SOCIAL WORKER Work Phone: [facility] Start: 02-04-2023 End: 02-04-2023 Patient encounter procedure Mehran Urrutia AIRLINE CUSTOMER SERVICE AGENT.GERIATRIC SOCIAL WORKER Work Phone: [facility] Comment on above: Kidney replaced by t ransplant (Primary Dx); 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); 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); Aftercare following organ transplant; Thrombocytopenia (HCC) Start: 12-30-2022 ambulatory Isabel ghosh [place] [facility] [employer] Comment on above: Population Health Na vigation Outreach (ACO Care Gaps) Start: 12-10-2022 End: 12-10-2022 ambulatory ISHA COLEMAN Facility:[facility] Start: 12-10-2022 End: 12-10-2022 Patient encounter procedure Isha Coleman MD Work Phone: [facility] Comment on above: Elevated PSA (Primar y Dx) Start: 11-01-2022 Refill Mehran agee AIRLINE CUSTOMER SERVICE AGENT.GERIATRIC SOCIAL WORKER Work Phone: [facility] Comment on above: Med Change Request Start: 10-17-2022 End: 10-17-2022 Patient encounter procedure Tung Aguilar MD Work Phone: [facility] Comment on above: Polyneuropathy due t o type 2 diabetes mellitus (HCC) (Primary Dx); 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); 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 [place] Comment on above: Population Health Na vigation Outreach (ACO [place] PCSA) Start: 09-09-2022 End: 09-09-2022 ambulatory ISHA COLEMAN Facility:[facility] Start: 09-09-2022 End: 09-09-2022 Patient encounter procedure Isha Coleman MD Work Phone: [facility] Comment on above: Elevated PSA; Abnormal ultrasound Start: 08-14-2022 Telephone encounter Tung Aguilar MD Work Phone: [facility] Comment on above: Results; Appointment Start: 08-13-2022 End: 08-13-2022 ambulatory [facility] Facility:[facility] Start: 08-12-2022 ambulatory LESLI ALMANZA Facility:[facility] Start: 08-12-2022 End: 08-12-2022 Subsequent hospital visit by physician [facility] Work Phone: Radiology Comment on above: Elevated PSA [R97.20 ] Start: 08-08-2022 End: 08-08-2022 Patient encounter procedure Suleiman Almanza PA-C Work Phone: [facility] Comment on above: Elevated PSA (Primar y Dx) Start: 08-05-2022 Telephone encounter Suleiman Almanza PA-C Work Phone: [facility] Comment on above: Results Start: 07-29-2022 ambulatory David Barraza Facility :[facility] Start: 07-29-2022 End: 07-29-2022 ambulatory Tung Tres Arroyos Facility:[facility] Start: 07-15-2022 Refill Mehran agee AIRLINE CUSTOMER SERVICE AGENT.GERIATRIC SOCIAL WORKER Work Phone: [facility] Comment on above: Refill Request Start: 06-16-2022 Refill Mehran agee AIRLINE CUSTOMER SERVICE AGENT.GERIATRIC SOCIAL WORKER Work Phone: [facility] Comment on above: Refill Request Start: 05-09-2022 End: 05-09-[address] Tung Aguilar Work Phone: [facility] Start: 04-19-2022 End: 04-19-[address] 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 Ynes Aguilar Work Phone: [facility] Start: 04-05-2022 End: 04-05-2022 Admission to same day surgery center Dr. Tung Aguilar Work Phone: [facility] Start: 02-27-2022 End: 02-27-[address] Tung Aguilar Work Phone: [facility] Start: 01-13-2022 Get Medical Advice Mehran Urrutia APRN.GERIATRIC SOCIAL WORKER Work Phone: [facility] Comment on above: lab orders Start: 01-10-2022 ambulatory Mehran agee APRN.GERIATRIC SOCIAL WORKER Work Phone: [facility] Start: 01-10-2022 End: 01-10-2022 Patient encounter procedure Mehran Urrutia APRN.GERIATRIC SOCIAL WORKER Work Phone: [facility] Comment on above: Kidney replaced by t ransplant (Primary Dx); Sore throat; Aftercare following organ transplant; Thrombocytopenia (HCC); Current use of proton pump inhibitor Start: 12-25-2021 End: 12-25-[address] Tung Aguilar Work Phone: [facility], [facility] Procedures Date Procedure Procedure Detail Performing Clinician Start: 02-07-2025 Urnls dip stick/tablet rgnt auto w/o microscopy Bulk Order Provider Start: 04-19-2024 Adult depression screening assessment Mehran Urrutia APRN.GERIATRIC SOCIAL WORKER Work Phone: Start: 01-29-2024 Urnls dip stick/tablet rgnt auto w/o microscopy Bulk Order Provider Start: 12-10-2023 Gastric emptying imaging study Sandrine Julien MD Work Phone: Start: 06-03-2023 Ecg routine ecg w/least 12 lds i&r only Sandrine Julien MD Work Phone: Start: 06-02-2023 Radiologic exam chest 2 views Sandrine Julien MD Work Phone: Start: 06-02-2023 XR UPPER GI SINGLE CONTRAST Sandrine Julien MD Work Phone: Start: 05-07-[address] Tung copeland Work Phone: Start: 02-04-2023 Urnls dip stick/tablet rgnt auto w/o microscopy Bulk Order Provider Start: 12-10-2022 Urnls dip stick/tablet rgnt auto w/o microscopy Isha Coleman MD Work Phone: Start: 09-09-2022 Urnls dip stick/tablet rgnt auto w/o microscopy Isha Coleman MD Work Phone: Start: 08-12-2022 Us pelvic nonobstetric image dcmtn limited/f/u M Isaac Almanza PA-C Work Phone: Start: 05-09-[address] Tung Aguilar Work Phone: Start: 04-16-2022 Adult depression screening assessment Tung Aguilar MD Work Phone: Start: 04-05-[address] Tung copeland Work Phone: Start: 01-10-2022 Urnls dip stick/tablet rgnt auto w/o microscopy Bulk Order Provider Start: 12-25-[address] Tung velazquez Work Phone: Start: 04-20-2008 History of renal transplant Kidney replaced by transplant Mehran Urrutia APRN.GERIATRIC SOCIAL WORKER Work Phone: History of renal transplant Kidn ey replaced by transplant Mehran Urrutia APRN.GERIATRIC SOCIAL WORKER Work Phone: History of renal transplant Kidn ey replaced by transplant Mehran L Lard AIRLINE CUSTOMER SERVICE AGENT.GERIATRIC SOCIAL WORKER Work Phone: History of renal transplant Sweta l transplant recipient Dr. Tung Aguilar Work Phone: History of renal transplant Kidn ey replaced by transplant Tung Aguilar MD Work Phone: History of renal transplant Kidn ey replaced by transplant Mehran L Lard AIRLINE CUSTOMER SERVICE AGENT.GERIATRIC SOCIAL WORKER Work Phone: History of renal transplant Kidn ey replaced by transplant Mehran L Lard AIRLINE CUSTOMER SERVICE AGENT.GERIATRIC SOCIAL WORKER Work Phone: History of renal transplant Kidn ey replaced by transplant Tung Aguilar MD Work Phone: History of renal transplant Kidn ey replaced by transplant Mehran L Lard AIRLINE CUSTOMER SERVICE AGENT.GERIATRIC SOCIAL WORKER Work Phone: History of renal transplant Kidn ey replaced by transplant Tung Aguilar MD Work Phone: History of renal transplant Kidn ey replaced by transplant [facility] 1 History of renal transplant Kidn ey replaced by transplant Mehran L Lard AIRLINE CUSTOMER SERVICE AGENT.GERIATRIC SOCIAL WORKER Work Phone: History of renal transplant Kidn ey replaced by transplant Mehran L Lard AIRLINE CUSTOMER SERVICE AGENT.GERIATRIC SOCIAL WORKER Work Phone: History of renal transplant Kidn ey replaced by transplant Mehran L Lard AIRLINE CUSTOMER SERVICE AGENT.GERIATRIC SOCIAL WORKER Work Phone: History of renal transplant Kidn ey replaced by transplant Tung Aguilar MD Work Phone: History of renal transplant Kidn ey 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) Mehran L Lard AIRLINE CUSTOMER SERVICE AGENT.GERIATRIC SOCIAL WORKER Work Phone: History of renal transplant Kidn ey 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) Mehran L Lard AIRLINE CUSTOMER SERVICE AGENT.GERIATRIC SOCIAL WORKER Work Phone: Plan of Treatment Date Care Activity Detail Author Start: 07-05-2029 Prostate specific antigen measurement Prostate Cancer Screening Discussion [facility] Start: 12-02-2027 PROSTATE CANCER SCREENING DISCUSSION PROSTATE CANCER SCREENING DISCUSSION [facility] Start: 12-02-2027 Prostate specific antigen measurement Prostate Cancer Screening Discussion [facility] Start: 07-26-2027 PROSTATE CANCER SCREENING DISCUSSION PROSTATE CANCER SCREENING DISCUSSION [facility] Start: 02-07-2026 BP Controlled (<130/80) BP Controlled (<130/80) [facility] Start: 10-22-2025 Annual PCP Team Chronic Disease Visit Annual PCP Team Chronic Disease Visit [facility] Start: 10-22-2025 Covid-19 Vaccine (3 - Pfizer risk series) Covid-19 Vaccine (3 - Pfizer risk series) [facility] Comment on above: Postponed from 08/01/2021 (Declined at t his time) Start: 10-22-2025 Hepatitis B Vaccine (1 of 3 - Risk 3-dose series) Hepatitis B Vaccine (1 of 3 - Risk 3-dose series) [facility] Comment on above: Postponed from 2024 (Declined at t his time) Start: 10-22-2025 Pneumococcal Vaccine: 50+ (3 of 3 - PPSV23, PCV20 or PCV21) Pneumococcal Vaccine: 50+ (3 of 3 - PPSV23, PCV20 or PCV21) [facility] Comment on above: Postponed from 06/02/2018 (Declined at t his time) Start: 10-22-2025 RSV Vaccine (1 - Risk 60-74 years 1-dose series) RSV Vaccine (1 - Risk 60-74 years 1-dose series) [facility] Comment on above: Postponed from 2024 (Declined at t his time) Start: 10-12-2025 Diabetic foot examination Diabetic Foot Exam [facility] Start: 08-23-2025 Annual PCP Team Chronic Disease Visit Annual PCP Team Chronic Disease Visit [facility] Start: 08-23-2025 BP Controlled (<130/80) BP Controlled (<130/80) [facility] Start: 08-07-2025 Hemoglobin A1c measurement HbA1C [facility] Start: 06-06-2025 Influenza vaccination Influenza Vaccine (Season Ended) [facility] Start: 05-11-2025 End: 05-11-2025 Patient encounter procedure 05/11/2025 8:00 AM EDT Office Visit [facility] [place] [address] [place] [address] Tung Aguilar MD [address] [place] [address] Medicare Wellness [facility] [place] Comment on above: Medicare Wellness Start: 05-10-2025 End: 08-09-2025 Hemoglobin A1c in Blood HEMOGLOBIN A1C Lab Routine 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) 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) Expected: 05/10/2025 (Approximate), Expires: 08/09/2025 [facility] Comment on above: Expected: 05/10/2025 (Approximate), Expi res: 08/09/2025 Start: 04-19-2025 Annual PCP Team Chronic Disease Visit Annual PCP Team Chronic Disease Visit [facility] Start: 04-19-2025 Anxiety Screening Anxiety Screening [facility] Start: 04-19-2025 Depression Screening Depression Screening [facility] Start: 04-19-2025 Hepatitis A Vaccine (1 of 2 - Risk 2-dose series) Hepatitis A Vaccine (1 of 2 - Risk 2-dose series) [facility] Comment on above: Postponed from 1983 (Declined at t his time) Start: 04-19-2025 Pneumococcal vaccination Pneumococcal Vaccine (3 of 3 - PPSV23 or PCV20) [facility] Comment on above: Postponed from 06/02/2018 (Declined at t his time) Start: 04-19-2025 Shingrix Vaccine (1 of 2) Shingrix Vaccine (1 of 2) [facility] Comment on above: Postponed from 1983 (Declined at t his time) Start: 04-19-2025 Urine microalbumin profile DTaP,Tdap,Td Vaccine (2 - Tdap) [facility] Comment on above: Postponed from 09/03/2015 (Declined at t his time) Start: 04-17-2025 Hemoglobin A1c measurement HbA1C [facility] Start: 04-04-2025 Influenza vaccination [facility] Comment on above: Postponed from 06/06/2024 (Declined at t his time) Start: 02-07-2025 End: 02-07-2025 Patient encounter procedure 02/07/2025 8:30 AM EDT Office Visit Kidney [facility] [address] [address] Mehran Urrutia, AIRLINE CUSTOMER SERVICE AGENT.GERIATRIC SOCIAL WORKER [address] [place] [address] Annual follow up visit Kidney Medicine [facility] Comment on above: Annual follow up visit Start: 02-03-2025 End: 05-05-2025 Amylase [Enzymatic activity/volume] in Serum or Plasma AMYLASE Lab Routine Kidney 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) Expected: 02/03/2025, Expires: 05/05/2025 [facility] Comment on above: Expected: 02/03/2025, Expires: Start: 02-03-2025 End: 05-05-2025 C peptide [Mass/volume] in Serum or Plasma C-PEPTIDE BLD Lab Routine Kidney 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) Expected: 02/03/2025, Expires: 05/05/2025 [facility] Comment on above: Expected: 02/03/2025, Expires: Start: 02-03-2025 End: 05-05-2025 CBC W Auto Differential panel - Blood COMPLETE BLOOD COUNT AND DIFFERENTIAL Lab Routine Kidney 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) Expected: 02/03/2025, Expires: 05/05/2025 [facility] Comment on above: Expected: 02/03/2025, Expires: Start: 02-03-2025 End: 05-05-2025 Comprehensive metabolic 2000 panel - Serum or Plasma COMPREHENSIVE METABOLIC PANEL Lab Routine Kidney 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) Expected: 02/03/2025, Expires: 05/05/2025 [facility] Comment on above: Expected: 02/03/2025, Expires: Start: 02-03-2025 End: 05-05-2025 Hemoglobin A1c in Blood HEMOGLOBIN A1C Lab Routine Kidney 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) Expected: 02/03/2025, Expires: 05/05/2025 [facility] Work Phone: Comment on above: Expected: 02/03/2025, Expires: Start: 02-03-2025 End: 05-05-2025 Lipase [Enzymatic activity/volume] in Serum or Plasma LIPASE Lab Routine Kidney 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) Expected: 02/03/2025, Expires: 05/05/2025 [facility] Comment on above: Expected: 02/03/2025, Expires: Start: 02-03-2025 End: 05-05-2025 Tacrolimus [Mass/volume] in Blood TACROLIMUS/FK-506 BL Lab Routine Kidney 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) Expected: 02/03/2025, Expires: 05/05/2025 [facility] Comment on above: Expected: 02/03/2025, Expires: Start: 01-28-2025 BP Controlled (<130/80) BP Controlled (<130/80) [facility] Start: 01-20-2025 End: 04-21-2025 Lipid 1996 panel - Serum or Plasma LIPID PANEL BASIC Lab Routine 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) Expected: 01/20/2025, Expires: 04/21/2025 [facility] Work Phone: Comment on above: Expected: 01/20/2025, Expires: Start: 01-02-2025 Hemoglobin A1c measurement HbA1C [facility] Start: 12-18-2024 BP Controlled (<130/80) BP Controlled (<130/80) [facility] Start: 11-05-2024 Hepatitis B screening Urine Albumin:Creatinine Ratio [facility] Start: 11-05-2024 Hepatitis B surface antibody level LDL Cholesterol [facility] Start: 10-22-2024 End: 01-21-2025 Microalbumin/Creatinin e [Mass Ratio] in Urine ALBUMIN/CREATININE RATIO, URINE Lab Routine 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) Expected: 10/22/2024, Expires: 01/21/2025 [facility] Comment on above: Expected: 10/22/2024, Expires: Start: 10-22-2024 End: 10-22-2024 Patient encounter procedure 10/22/2024 9:20 AM EST Office Visit Family [facility] [place] [address] [place] [id number] Tung Aguilar MD [address] [place] [id number] 6 month follow up Family [facility] [place] Comment on above: 6 month follow up Start: 10-20-2024 Annual PCP Team Chronic Disease Visit Annual PCP Team Chronic Disease Visit [facility] Start: 10-20-2024 BP Controlled (<130/80) BP Controlled (<130/80) [facility] Start: 10-20-2024 Covid-19 Vaccine (3 - Pfizer risk series) Covid-19 Vaccine (3 - Pfizer risk series) [facility] Comment on above: Postponed from 08/01/2021 (Declined at t his time) Start: 10-06-2024 Medicare Advantage Annual Wellness Visit Medicare Advantage Annual Wellness Visit [facility] Start: 09-09-2024 Hemoglobin A1c measurement HbA1C [facility] Start: 2024 Hepatitis B Vaccine (1 of 3 - Risk 3-dose series) Hepatitis B Vaccine (1 of 3 - Risk 3-dose series) [facility] Start: 2024 RSV Vaccine (1 - Risk 60-74 years 1-dose series) RSV Vaccine (1 - Risk 60-74 years 1-dose series) [facility] Start: 08-23-2024 End: 08-23-2024 Patient encounter procedure 08/23/2024 10:40 AM EST Office Visit [facility] [place] [address] [place] [address] Leticia Jasso APRN.GERIATRIC SOCIAL WORKER [address] [place] [address] LT ARM RINGWORM [facility] [place] Comment on above: LT ARM RINGWORM Start: 08-06-2024 Diabetic foot examination Diabetic Foot Exam [facility] Start: 06-20-2024 BP Controlled (<130/80) BP Controlled (<130/80) [facility] Start: 06-06-2024 Influenza vaccination [facility] Start: 06-03-2024 BP CONTROLLED (<130/80) BP CONTROLLED (<130/80) [facility] Start: 05-05-2024 Hemoglobin A1c measurement HbA1C [facility] Start: 04-19-2024 End: 04-19-2024 Patient encounter procedure 04/19/2024 10:20 AM EDT Office Visit [facility] [place] [address] [place] [address] Tung Aguilar MD [address] [facility] [place] [address] 6 month follow up [facility] [place] Comment on above: 6 month follow up Start: 04-17-2024 ANNUAL PCP TEAM CHRONIC DISEASE VISIT ANNUAL PCP TEAM CHRONIC DISEASE VISIT [facility] Start: 04-17-2024 BP CONTROLLED (<130/80) BP CONTROLLED (<130/80) [facility] Start: 04-17-2024 HEPATITIS A (1 of 2 - Risk 2-dose series) HEPATITIS A (1 of 2 - Risk 2-dose series) [facility] Comment on above: Postponed from 1983 (Declined at t his time) Start: 04-17-2024 Hepatitis A Vaccine (1 of 2 - Risk 2-dose series) Hepatitis A Vaccine (1 of 2 - Risk 2-dose series) [facility] Comment on above: Postponed from 1983 (Declined at t his time) Start: 04-17-2024 HEPATITIS B (1 of 3 - 3-dose series) HEPATITIS B (1 of 3 - 3-dose series) [facility] Comment on above: Postponed from 1964 (Declined at t his time) Start: 04-17-2024 Hepatitis B Vaccine (1 of 3 - 3-dose series) Hepatitis B Vaccine (1 of 3 - 3-dose series) [facility] Comment on above: Postponed from 1964 (Declined at t his time) Start: 04-17-2024 PNEUMOCOCCAL (3 - PPSV23 or PCV20) PNEUMOCOCCAL (3 - PPSV23 or PCV20) [facility] Comment on above: Postponed from 04/07/2019 (Declined at t his time) Start: 04-17-2024 Pneumococcal vaccination [facility] Comment on above: Postponed from 04/07/2019 (Declined at t his time) Postponed from 06/02 (Declined at this time) Start: 04-17-2024 SHINGRIX VACCINE (1 of 2) SHINGRIX VACCINE (1 of 2) [facility] Comment on above: Postponed from 1983 (Declined at t his time) Start: 04-17-2024 Urine microalbumin profile [facility] Comment on above: Postponed from 09/03/2015 (Declined at t his time) Start: 04-04-2024 Influenza vaccination [facility] Comment on above: Postponed from 06/06/2023 (Declined at t his time) Start: 03-05-2024 Glaucoma screening Dilated Retinal Exam [facility] Start: 03-05-2024 Hepatitis C antibody, confirmatory test DILATED RETINAL EXAM [facility] Start: 02-28-2024 End: 05-29-2024 Amylase [Enzymatic activity/volume] in Serum or Plasma AMYLASE Lab Routine 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) Expected: 02/28/2024 (Approximate), Expires: 05/29/2024 [facility] Comment on above: Expected: 02/28/2024 (Approximate), Expi res: 05/29/2024 Start: 02-28-2024 End: 05-29-2024 CBC panel - Blood by Automated count COMPLETE BLOOD COUNT Lab Routine 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) Kidney replaced by transplant Expected: 02/28/2024 (Approximate), Expires: 05/29/2024 [facility] Comment on above: Expected: 02/28/2024 (Approximate), Expi res: 05/29/2024 Start: 02-28-2024 End: 05-29-2024 Hemoglobin A1c in Blood HEMOGLOBIN A1C Lab Routine 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) Expected: 02/28/2024 (Approximate), Expires: 05/29/2024 [facility] Comment on above: Expected: 02/28/2024 (Approximate), Expi res: 05/29/2024 Start: 02-28-2024 End: 05-29-2024 Lipase [Enzymatic activity/volume] in Serum or Plasma LIPASE Lab Routine 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) Expected: 02/28/2024 (Approximate), Expires: 05/29/2024 [facility] Comment on above: Expected: 02/28/2024 (Approximate), Expi res: 05/29/2024 Start: 02-28-2024 End: 05-29-2024 Renal function 2000 panel - Serum or Plasma RENAL FUNCTION PANEL Lab Routine 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) Kidney replaced by transplant Expected: 02/28/2024 (Approximate), Expires: 05/29/2024 [facility] Work Phone: Comment on above: Expected: 02/28/2024 (Approximate), Expi res: 05/29/2024 Start: 02-28-2024 End: 05-29-2024 Tacrolimus [Mass/volume] in Blood TACROLIMUS/FK-506 BL Lab Routine 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) Kidney replaced by transplant Expected: 02/28/2024 (Approximate), Expires: 05/29/2024 [facility] Comment on above: Expected: 02/28/2024 (Approximate), Expi res: 05/29/2024 Start: 02-05-2024 BP CONTROLLED (<130/80) BP CONTROLLED (<130/80) [facility] Start: 12-19-2023 End: 07-19-2024 Gastric emptying imaging study NM GASTRIC EMPTYING SOLID Radiology Routine Gastroparesis Expected: 12/19/2023, Expires: 07/19/2024 [facility] [facility] Work Phone: Comment on above: Expected: 12/19/2023, Expires: Start: 12-09-2023 Hemoglobin A1c/Hemoglobin.total in Blood HbA1C [facility] Start: 12-02-2023 Hepatitis B surface antibody level LDL CHOLESTEROL [facility] Start: 10-18-2023 End: 12-18-2023 Lipid 1996 panel - Serum or Plasma LIPID PANEL BASIC Lab Routine Pure hypercholesterolemia Expected: 10/18/2023, Expires: 12/18/2023 [facility] Work Phone: Comment on above: Expected: 10/18/2023, Expires: Start: 10-17-2023 ANNUAL PCP TEAM CHRONIC DISEASE VISIT ANNUAL PCP TEAM CHRONIC DISEASE VISIT [facility] Start: 10-17-2023 BP CONTROLLED (<130/80) BP CONTROLLED (<130/80) [facility] Start: 10-17-2023 COVID-19 VACCINE (3 - Pfizer risk series) COVID-19 VACCINE (3 - Pfizer risk series) [facility] Comment on above: Postponed from 08/01/2021 (Declined at t his time) Start: 10-10-2023 3 comp foot exam completed DIABETIC FOOT EXAM [facility] Start: 10-06-2023 Behavioral Health Screening Behavioral Health Screening [facility] Start: 10-06-2023 Depression Assessment Depression Assessment [facility] Start: 08-08-2023 ANNUAL PCP TEAM CHRONIC DISEASE VISIT ANNUAL PCP TEAM CHRONIC DISEASE VISIT [facility] Start: 08-08-2023 BP CONTROLLED (<130/80) BP CONTROLLED (<130/80) [facility] Start: 07-26-2023 Hepatitis B screening URINE ALBUMIN:CREATININE RATIO [facility] Start: 06-06-2023 Influenza vaccination [facility] Start: 06-03-2023 End: 08-03-2023 Hemoglobin A1c in Blood [facility] Work Phone: Comment on above: Expected: 06/03/2023, Expires: Start: 06-01-2023 Hemoglobin A1c/Hemoglobin.total in Blood HBA1C [facility] Start: 05-30-2023 End: 05-30-2024 CBC W Auto Differential panel - Blood CBC + DIFF Lab Routine Gastric bezoar, initial encounter Pre-op exam Expected: 05/30/2023, Expires: 05/30/2024 [facility] Work Phone: Comment on above: Expected: 05/30/2023, Expires: 4 Start: 05-30-2023 End: 05-30-2024 Comprehensive metabolic 2000 panel - Serum or Plasma COMP METABOLIC PANEL Lab Routine Gastric bezoar, initial encounter Pre-op exam Expected: 05/30/2023, Expires: 05/30/2024 [facility] Work Phone: Comment on above: Expected: 05/30/2023, Expires: 4 Start: 05-30-2023 End: 05-30-2024 TYPE AND SCREEN,30 DAY TYPE AND SCREEN,30 DAY Blood Bank Routine Gastric bezoar, initial encounter Pre-op exam Expected: 05/30/2023, Expires: 05/30/2024 [facility] Work Phone: Comment on above: Expected: 05/30/2023, Expires: 4 Start: 05-07-2023 Patient discharge [facility] Start: 04-23-2023 Hepatitis B screening URINE ALBUMIN:CREATININE RATIO [facility] Start: 04-16-2023 Adult depression screening assessment DEPRESSION SCREENING [facility] Start: 04-16-2023 ANNUAL PCP TEAM CHRONIC DISEASE VISIT ANNUAL PCP TEAM CHRONIC DISEASE VISIT [facility] Start: 04-16-2023 BP CONTROLLED (<130/80) BP CONTROLLED (<130/80) [facility] Start: 04-10-2023 PROSTATE CANCER SCREENING DISCUSSION PROSTATE CANCER SCREENING DISCUSSION [facility] Start: 04-04-2023 Influenza vaccination INFLUENZA (#1) [facility] Comment on above: Postponed from 06/06/2022 (Declined at t his time) Start: 01-25-2023 Hepatitis C antibody, confirmatory test DILATED RETINAL EXAM [facility] Start: 01-24-2023 Hemoglobin A1c/Hemoglobin.total in Blood HBA1C [facility] Start: 01-10-2023 BP CONTROLLED (<130/80) BP CONTROLLED (<130/80) [facility] Start: 12-08-2022 End: 02-07-2023 Prostate specific Ag [Mass/volume] in Serum or Plasma PSA/PROSTSPECAG DIAG Lab Routine Elevated PSA Expected: 12/08/2022, Expires: 02/07/2023 [facility] Work Phone: Comment on above: Expected: 12/08/2022, Expires: 3 Start: 10-24-2022 Hemoglobin A1c/Hemoglobin.total in Blood HBA1C [facility] Start: 10-17-2022 End: 12-17-2022 Hemoglobin A1c in Blood HGB A1C Lab Routine 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) Expected: 10/17/2022, Expires: 12/17/2022 [facility] Work Phone: Comment on above: Expected: 10/17/2022, Expires: 3 Start: 10-17-2022 End: 12-17-2022 Lipid 1996 panel - Serum or Plasma LIPID PANEL BASIC Lab Routine Pure hypercholesterolemia Expected: 10/17/2022, Expires: 12/17/2022 [facility] Work Phone: Comment on above: Expected: 10/17/2022, Expires: 3 Start: 10-16-2022 3 comp foot exam completed DIABETIC FOOT EXAM [facility] Start: 10-16-2022 ANNUAL PCP TEAM CHRONIC DISEASE VISIT ANNUAL PCP TEAM CHRONIC DISEASE VISIT [facility] Start: 07-26-2022 Hepatitis B surface antibody level LDL CHOLESTEROL [facility] Start: 07-17-2022 Hemoglobin A1c/Hemoglobin.total in Blood HBA1C [facility] Start: 06-06-2022 Influenza vaccination [facility] Start: 04-16-2022 End: 06-16-2022 ALBUMIN/CREAT RATIO RND UR ALBUMIN/CREAT RATIO RND UR Lab Routine 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) Expected: 04/16/2022, Expires: 06/16/2022 [facility] Work Phone: Comment on above: Expected: 04/16/2022, Expires: Start: 04-05-2022 Egd transoral biopsy single/multiple EGD BIOPSY SINGLE/MULTIPLE [facility] Work Phone: Start: 04-05-2022 Patient discharge [facility] Work Phone: Start: 10-06-2021 DEPRESSION ASSESSMENT DEPRESSION ASSESSMENT [facility] Start: 09-20-2021 Hepatitis B screening URINE ALBUMIN:CREATININE RATIO [facility] Start: 08-29-2021 Hemoglobin A1c/Hemoglobin.total in Blood HBA1C [facility] Start: 08-01-2021 COVID-19 VACCINE (3 - Pfizer risk 4-dose series) COVID-19 VACCINE (3 - Pfizer risk 4-dose series) [facility] Start: 08-01-2021 COVID-19 VACCINE (3 - Pfizer risk series) COVID-19 VACCINE (3 - Pfizer risk series) [facility] Start: 04-07-2019 PNEUMOCOCCAL (3 - PPSV23 if available, else PCV20) PNEUMOCOCCAL (3 - PPSV23 if available, else PCV20) [facility] Start: 04-07-2019 PNEUMOCOCCAL (3 - PPSV23 or PCV20) PNEUMOCOCCAL (3 - PPSV23 or PCV20) [facility] Start: 09-03-2015 Urine microalbumin profile DTAP,TDAP,TD (2 - Tdap) [facility] Start: 2014 SHINGRIX VACCINE (1 of 2) SHINGRIX VACCINE (1 of 2) [facility] Start: 08-06-2010 TWO PNEUMOVAX 5 YEARS APART PRIOR TO AGE 65 (#2) TWO PNEUMOVAX 5 YEARS APART PRIOR TO AGE 65 (#2) [facility] Start: 2009 COLOGUARD (FIT-DNA) COLOGUARD (FIT-DNA) [facility] Start: 2009 Colonoscopy COLONOSCOPY [facility] Start: 2009 COLORECTAL CANCER SCREENING COLORECTAL CANCER SCREENING [facility] Start: [address] COLONOGRAPHY [facility] Start: 2009 FECAL OCCULT BLOOD FECAL OCCULT BLOOD [facility] Start: 2009 Screening for malignant neoplasm of colon [facility] Start: 2009 SIGMOIDOSCOPY SIGMOIDOSCOPY [facility] Start: 1983 HEPATITIS B (1 of 3 - Risk 3-dose series) HEPATITIS B (1 of 3 - Risk 3-dose series) [facility] Start: 1983 SHINGRIX VACCINE (1 of 2) SHINGRIX VACCINE (1 of 2) [facility] Start: 1982 BP CONTROLLED (<130/80) BP CONTROLLED (<130/80) [facility] Start: 1976 Adult depression screening assessment DEPRESSION SCREENING [facility] Start: 1974 Hepatitis C antibody, confirmatory test DILATED RETINAL EXAM [facility] Start: 1965 HEPATITIS A (1 of 2 - Risk 2-dose series) HEPATITIS A (1 of 2 - Risk 2-dose series) [facility] Start: 1964 HEPATITIS B (1 of 3 - 3-dose series) HEPATITIS B (1 of 3 - 3-dose series) [facility] End: 01-14-2023 Amylase [Enzymatic activity/volume] in Serum or Plasma AMYLASE BLD Lab Routine 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) Every 3 months for 4 Occurrences starting 01/14/2022 until 01/14/2023 [facility] Work Phone: Comment on above: Every 3 months for 4 Occurrences startin g 01/14/2022 until 01/14/2023 End: 02-05-2024 Amylase [Enzymatic activity/volume] in Serum or Plasma AMYLASE BLD Lab Routine Kidney replaced by transplant Every 3 months for 4 Occurrences starting 02/04/2023 until 02/05/2024 [facility] Work Phone: Comment on above: Every 3 months for 4 Occurrences startin g 02/04/2023 until 02/05/2024 End: 01-28-2025 Amylase [Enzymatic activity/volume] in Serum or Plasma AMYLASE Lab Routine 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) Every 3 months for 4 Occurrences starting 01/29/2024 until 01/28/2025 [facility] Comment on above: Every 3 months for 4 Occurrences startin g 01/29/2024 until 01/28/2025 End: 01-14-2023 BK VIRUS PCR,QUANT,P BK VIRUS PCR,QUANT,P Lab Routine Kidney replaced by transplant Every 3 months for 4 Occurrences starting 01/14/2022 until 01/14/2023 [facility] Work Phone: Comment on above: Every 3 months for 4 Occurrences startin g 01/14/2022 until 01/14/2023 End: 02-05-2024 BK VIRUS PCR,QUANT,P BK VIRUS PCR,QUANT,P Lab Routine Kidney replaced by transplant Every 6 months for 2 Occurrences starting 02/04/2023 until 02/05/2024 [facility] Work Phone: Comment on above: Every 6 months for 2 Occurrences startin g 02/04/2023 until 02/05/2024 End: 02-05-2024 C peptide [Mass/volume] in Serum or Plasma C-PEPTIDE BLD Lab Routine 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) 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) Every 6 months for 2 Occurrences starting 02/04/2023 until 02/05/2024 [facility] Work Phone: Comment on above: Every 6 months for 2 Occurrences startin g 02/04/2023 until 02/05/2024 End: 01-28-2025 C peptide [Mass/volume] in Serum or Plasma C-PEPTIDE BLD Lab Routine 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) Every 6 months for 2 Occurrences starting 01/29/2024 until 01/28/2025 [facility] Comment on above: Every 6 months for 2 Occurrences startin g 01/29/2024 until 01/28/2025 End: 01-14-2023 C-PEPTIDE BLD C-PEPTIDE BLD Lab Routine 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) Every 3 months for 4 Occurrences starting 01/14/2022 until 01/14/2023 [facility] Work Phone: Comment on above: Every 3 months for 4 Occurrences startin g 01/14/2022 until 01/14/2023 End: 01-14-2023 CBC panel - Blood by Automated count CBC Lab Routine Kidney replaced by transplant 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) Every 3 months for 4 Occurrences starting 01/14/2022 until 01/14/2023 [facility] Work Phone: Comment on above: Every 3 months for 4 Occurrences startin g 01/14/2022 until 01/14/2023 End: 02-05-2024 CBC panel - Blood by Automated count CBC Lab Routine 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) Kidney replaced by transplant Every 3 months for 4 Occurrences starting 02/04/2023 until 02/05/2024 [facility] Work Phone: Comment on above: Every 3 months for 4 Occurrences startin g 02/04/2023 until 02/05/2024 End: 02-07-2026 CBC panel - Blood by Automated count COMPLETE BLOOD COUNT Lab Routine Kidney 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) 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) Every 3 months for 4 Occurrences starting 02/07/2025 until 02/07/2026 [facility] Comment on above: Every 3 months for 4 Occurrences startin g 02/07/2025 until 02/07/2026 End: 01-28-2025 CBC W Auto Differential panel - Blood COMPLETE BLOOD COUNT AND DIFFERENTIAL Lab Routine 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) Kidney replaced by transplant Every 3 months for 4 Occurrences starting 01/29/2024 until 01/28/2025 [facility] Comment on above: Every 3 months for 4 Occurrences startin g 01/29/2024 until 01/28/2025 End: 01-14-2023 Comprehensive metabolic 2000 panel - Serum or Plasma COMP METABOLIC PANEL Lab Routine Kidney replaced by transplant 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) Every 3 months for 4 Occurrences starting 01/14/2022 until 01/14/2023 [facility] Work Phone: Comment on above: Every 3 months for 4 Occurrences startin g 01/14/2022 until 01/14/2023 End: 02-05-2024 Comprehensive metabolic 2000 panel - Serum or Plasma COMP METABOLIC PANEL Lab Routine 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) Kidney replaced by transplant Every 3 months for 4 Occurrences starting 02/04/2023 until 02/05/2024 [facility] Work Phone: Comment on above: Every 3 months for 4 Occurrences startin g 02/04/2023 until 02/05/2024 End: 01-28-2025 Comprehensive metabolic 2000 panel - Serum or Plasma COMPREHENSIVE METABOLIC PANEL Lab Routine 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) Kidney replaced by transplant Every 3 months for 4 Occurrences starting 01/29/2024 until 01/28/2025 [facility] Comment on above: Every 3 months for 4 Occurrences startin g 01/29/2024 until 01/28/2025 End: 02-07-2026 Comprehensive metabolic 2000 panel - Serum or Plasma COMPREHENSIVE METABOLIC PANEL Lab Routine Kidney 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) Every 6 months for 2 Occurrences starting 02/07/2025 until 02/07/2026 [facility] Comment on above: Every 6 months for 2 Occurrences startin g 02/07/2025 until 02/07/2026 End: 05-30-2024 ECG COMPLETE ECG COMPLETE ECG Routine Gastric bezoar, initial encounter Pre-op exam 1 Occurrences starting 05/30/2023 until 05/30/2024 [facility] Work Phone: Comment on above: 1 Occurrences starting 05/30/2023 until 05/30/2024 ECG COMPLETE ECG COMPLETE ECG Routine 06/03/2023 9:49 AM EDT [facility] Work Phone: End: 02-05-2024 Hemoglobin A1c in Blood HGB A1C Lab Routine 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) 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) Every 6 months for 2 Occurrences starting 02/04/2023 until 02/05/2024 [facility] Work Phone: Comment on above: Every 6 months for 2 Occurrences startin g 02/04/2023 until 02/05/2024 End: 01-28-2025 Hemoglobin A1c in Blood HEMOGLOBIN A1C Lab Routine 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) Every 6 months for 2 Occurrences starting 01/29/2024 until 01/28/2025 [facility] Comment on above: Every 6 months for 2 Occurrences startin g 01/29/2024 until 01/28/2025 End: 01-14-2023 Hemoglobin A1c/Hemoglobin.total in Blood HGB A1C Lab Routine Type I diabetes mellitus with manifestations ([facility]) Every 3 months for 4 Occurrences starting 01/14/2022 until 01/14/2023 [facility] Work Phone: Comment on above: Every 3 months for 4 Occurrences startin g 01/14/2022 until 01/14/2023 End: 01-14-2023 Lipase [Enzymatic activity/volume] in Serum or Plasma LIPASE BLD Lab Routine 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 ([facility]) Every 3 months for 4 Occurrences starting 01/14/2022 until 01/14/2023 [facility] Work Phone: Comment on above: Every 3 months for 4 Occurrences startin g 01/14/2022 until 01/14/2023 End: 02-05-2024 Lipase [Enzymatic activity/volume] in Serum or Plasma LIPASE BLD Lab Routine Kidney replaced by transplant Every 3 months for 4 Occurrences starting 02/04/2023 until 02/05/2024 [facility] Work Phone: Comment on above: Every 3 months for 4 Occurrences startin g 02/04/2023 until 02/05/2024 End: 01-28-2025 Lipase [Enzymatic activity/volume] in Serum or Plasma LIPASE Lab Routine 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 ([facility]) Every 3 months for 4 Occurrences starting 01/29/2024 until 01/28/2025 [facility] Comment on above: Every 3 months for 4 Occurrences startin g 01/29/2024 until 01/28/2025 End: 02-07-2026 Lipid 1996 panel - Serum or Plasma LIPID PANEL, FASTING Lab Routine Pure hypercholesterolemia Every 6 months for 2 Occurrences starting 02/07/2025 until 02/07/2026 [facility] Comment on above: Every 6 months for 2 Occurrences startin g 02/07/2025 until 02/07/2026 Patient referral [facility] Work Phone: End: 06-28-2024 Radiologic exam chest 2 views XR CHEST 2V FRONTAL/LAT Radiology Routine Gastric bezoar, initial encounter Pre-op exam 1 Occurrences starting 05/30/2023 until 06/28/2024 [facility] Work Phone: Comment on above: 1 Occurrences starting 05/30/2023 until 06/28/2024 REFER FOR ADMIT INTERVIEW REFER FOR ADMIT INTERVIEW Procedures Routine Gastric bezoar, initial encounter Pre-op exam Ordered: 05/30/2023 [facility] Work Phone: Comment on above: Ordered: 05/30/2023 End: 02-07-2026 Renal function 2000 panel - Serum or Plasma RENAL FUNCTION PANEL Lab Routine Kidney 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) 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 ([facility]) Every 3 months for 4 Occurrences starting 02/07/2025 until 02/07/2026 [facility] Work Phone: Comment on above: Every 3 months for 4 Occurrences startin g 02/07/2025 until 02/07/2026 End: 02-05-2024 Tacrolimus [Mass/volume] in Blood TACROLIMUS/FK-506 BL Lab Routine 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) Kidney replaced by transplant Every 3 months for 4 Occurrences starting 02/04/2023 until 02/05/2024 [facility] Work Phone: Comment on above: Every 3 months for 4 Occurrences startin g 02/04/2023 until 02/05/2024 End: 01-28-2025 Tacrolimus [Mass/volume] in Blood TACROLIMUS/FK-506 BL Lab Routine 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 ([facility]) Kidney replaced by transplant Every 3 months for 4 Occurrences starting 01/29/2024 until 01/28/2025 [facility] Comment on above: Every 3 months for 4 Occurrences startin g 01/29/2024 until 01/28/2025 End: 02-07-2026 Tacrolimus [Mass/volume] in Blood TACROLIMUS/FK-506 BL Lab Routine Kidney replaced by transplant ([facility]) 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 ([facility]) Every 3 months for 4 Occurrences starting 02/07/2025 until 02/07/2026 [facility] Comment on above: Every 3 months for 4 Occurrences startin g 02/07/2025 until 02/07/2026 End: 01-14-2023 TACROLIMUS/FK-506 BL TACROLIMUS/FK-506 BL Lab Routine Kidney replaced by transplant 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 ([facility]) Every 3 months for 4 Occurrences starting 01/14/2022 until 01/14/2023 [facility] Work Phone: Comment on above: Every 3 months for 4 Occurrences startin g 01/14/2022 until 01/14/2023 End: 09-07-2023 Us pelvic nonobstetric image dcmtn limited/f/u US PROSTATE Radiology Routine Elevated PSA 1 Occurrences starting 08/08/2022 until 09/07/2023 [facility] Work Phone: Comment on above: 1 Occurrences starting 08/08/2022 until 09/07/2023 End: 06-28-2024 XR UPPER GI SINGLE CONTRAST XR UPPER GI SINGLE CONTRAST Radiology Routine Bezoar, initial encounter 1 Occurrences starting 05/30/2023 until 06/28/2024 [facility] Work Phone: Comment on above: 1 Occurrences starting 05/30/2023 until 06/28/2024 [facility] Immunizations Immunization Date Immunization Notes Care Provider Jane ohara 07-04-2021 COVID-19 vaccine, ag e 12+ yr (PFIZER-BIONTECH - PURPLE TOP) Mehran Urrutia AIRLINE CUSTOMER SERVICE AGENT.GERIATRIC SOCIAL WORKER Work Phone: [facility] 06-13-2021 COVID-19 vaccine, ag e 12+ yr (PFIZER-BIONTECH - PURPLE TOP) Mehran Urrutia APRN.GERIATRIC SOCIAL WORKER Work Phone: [facility] 04-07-2018 pneumococcal conjuga te vaccine, 13 valent Mehran Urrutia APRN.GERIATRIC SOCIAL WORKER Work Phone: [facility] 07-13-2015 influenza, injectabl e, quadrivalent, contains preservative Mehran Urrutia APRN.GERIATRIC SOCIAL WORKER Work Phone: [facility] Work Phone: 07-13-2015 influenza, seasonal, injectable Mehran Urrutia APRN.GERIATRIC SOCIAL WORKER Work Phone: [facility] 07-13-2015 influenza virus vacc ine, unspecified formulation Sandrine Julien MD Work Phone: [facility] 07-13-2012 influenza virus vacc ine, unspecified formulation Mehran Urrutia APRN.GERIATRIC SOCIAL WORKER Work Phone: [facility] 07-14-2009 influenza virus vacc ine, unspecified formulation Mehran Urrutia APRN.GERIATRIC SOCIAL WORKER Work Phone: [facility] 09-03-2005 diphtheria and tetan us toxoids, adsorbed for pediatric use Mehran Urrutia APRN.GERIATRIC SOCIAL WORKER Work Phone: [facility] Work Phone: 08-06-2005 pneumococcal polysaccharide vaccine, 23 valent Mehran Urrutia APRN.GERIATRIC SOCIAL WORKER Work Phone: [facility] Work Phone: Payers Date Payer Category Payer Self-pay [id number] 2022 Medicare HU[employer]NA MEDICARE [employer] GOLD PLUS [id number] 2022-Present [phone] [id number] [facility] [id number] 2022 Medicare (Managed Care) HUMANA G OLD PLUS Member Subscriber Plan / Payer (Effective 2022-Present) Name: Homar Fallon Relation to Subscriber: Self Name: Homar Fallon Payer ID: [id number] (NAIC) Type: HMO Address: [address] [id number] 2022 Private Health Insurance [id number] 2020 Medicaid MEDICAID [facility] MEDICAID [id number] 2020-Present [phone] [address] [place] [address] Medicaid [id number] 2018 Medicaid [id number] 2018 Medicaid [id number] 2006 Medicare MEDICARE MEDICAR E A AND B [id number] 2006-Present [phone] [address] [address] [place] [address] Medicare [id number] 2006 Medicare [id number] Unknown [id number] Unknown [id number] Unknown [id number] Unknown [id number] Unknown [id number] Unknown [id number] Unknown [id number] Unknown [id number] Unknown [id number] Social History Date Type Detail Facility Start: 08-19-2011 End: 01-29-2024 Tobacco smoking status NHIS Never smoked tobacco [facility] Start: 01-10-2022 End: 02-07-2025 Alcohol intake Current non-drinker of alcohol (finding) [facility] Start: 1965 Sex Assigned At Not on file [facility] Start: 12-31-2021 End: 09-09-2022 Exposure to SARS-CoV-2 (event) Not sure [facility] Start: 04-02-2022 End: 05-01-2023 Tobacco smoking status NHIS Unknown if ever smoked [facility] Start: 07-24-2020 None [facility] Start: 07-24-2020 Alone [facility] Start: 07-20-2020 Non-smoker [facility] Start: 1965 Sex Assigned At Male [facility] Start: 08-19-2011 End: 01-29-2024 Tobacco use and exposure Smokeless tobacco non-user [facility] Start: 04-17-2023 End: 08-23-2024 History of Social function [facility] Work Phone: Start: 04-17-2023 End: 08-23-2024 Tobacco use panel [facility] Work Phone: Adult Depression Screening Assessment 0 [facility] Work Phone: How hard is it for y ou to pay for the very basics like food, housing, medical care, and heating Somewhat hard [facility] Work Phone: (I/We) worried reji er (my/our) food would run out before (I/we) got money to buy more. Never true [facility] Work Phone: In the past 12 month s, was there a time when you were not able to pay the mortgage or rent on time? No [facility] Work Phone: NEGATED: Highlighted rowStart: NINF History of tobacco use Passive smoker [facility] Goals Date Patient Goal Desired Activity /State Functional Status Date Assessment Result Facility 06-06-2023 Are you deaf, or do you have serious difficulty hearing No 06/06/2023 11:46 AM Tung Cedillo RN No [facility] 06-06-2023 Are you blind, or do you have serious difficulty seeing, even when wearing glasses No 06/06/2023 11:46 AM Tung Cedillo RN No [facility] 06-06-2023 Do you have serious difficulty walking or climbing stairs No 06/06/2023 11:46 AM Tung Cedillo RN No [facility] 06-06-2023 Do you have difficul ty dressing or bathing No 06/06/2023 11:46 AM Tung Cedillo RN No [facility] 06-06-2023 Because of a physica l, mental, or emotional condition, do you have difficulty doing errands alone such as visiting a physician's office or shopping No 06/06/2023 11:46 AM Tung Cedillo RN No [facility] Mental Status Date Assessment Result Facility 06-06-2023 Because of a physica l, mental, or emotional condition, do you have serious difficulty concentrating, remembering, or making decisions No 06/06/2023 11:46 AM Tung Cedillo RN No [facility] 05-07-2023 Cognitive function Voice/Name [facility] Work Phone: 04-05-2022 Cognitive function Voice/Name;To [facility] Work Phone: Clinical Notes 08-16-2012 to 08-02-2025 Telephone Encounter - Mehran Urrutia APRN.[facility] - 03/18/2025 10:50 AM EDTTelephone Encounter - Mehran Urrutia APRN.[facility] - 03/18/2025 10:[address] [facility] - 03/10/2025 12:34 PM EDT Note Date & Type Note Facility 08-02-2025 Note HNO ID: [id number] Author: LIBERTY DUNBAR RT(R) Service: ? Author Type: Technologist Type: Progress Notes Filed: 08/02/2025 10:09 Note Text: Radiology Service Progress Note PATIENT NAME: Homar Fallon DATE OF SERVICE: August 02, 2025 TIME: 9:44 AM PATIENT IDENTITY VERIFICATION COMPLETED USING TWO (2) IDENTIFIERS: Name and Date of confirmed by patient verbally. FALL SCREENING: Has the patient had 2 falls in the last year or 1 fall with injury or currently using an Ambulatory Assistive Device (Walker, Cane, Wheelchair, Crutches, etc.)? No PATIENT GENDER DATA: Assigned male at PATIENT RELEVANT IMPLANT DATA REVIEWED: Yes PATIENT PRESENTS WITH AN IMPLANTABLE OR ATTACHED MANAGER GENERATION: No RADIOLOGY DEPARTMENT: General X-ray: Exam(s) Completed: Chest X-Ray PERIPHERAL IV DATA: Not applicable SIGNED BY: RT Cici(R) August 02, 2025 9:44 AM [facility] 08-02-2025 Note HNO ID: [id number] Author: ALICIA CHEN APRN.GERIATRIC SOCIAL WORKER Service: ? Author Type: Nurse Practitioner Type: Progress Notes Filed: 08/02/2025 10:13 Note Text: This is a 59 year old male who presents today with: Patient presents with: Fall HISTORY OF PRESENT ILLNESS: Homar Fallon is a 59 year old male. Patient presents with: Fall Periods of extreme weakness, unsteadiness that lasts about 5 min. Has fallen. Gait has been unsteady. oHmar Fallon is a 59-year-old male with a history of heart transplant in 2013, accompanied by his sister who is providing additional history, presenting with episodes of weakness and near-falls. Episodes of Weakness and Near-Falls: - Onset approximately 3 months ago. - Three episodes reported: - First episode at home 3 months ago, initially dismissed. - Second episode at [employer] 3 weeks ago, resulting in a fall with head and leg injury. - Most recent episode last Friday, witnessed by sister and ; legs began to shake, felt very weak, and was assisted to a chair by . - Episodes last about 5 minutes, with recovery to baseline afterward. - No complete loss of consciousness or bowel/bladder function reported. - No associated sweating or pallor observed. - No coughing or prolonged sitting prior to episodes. - Denies chest pain, palpitations, or dyspnea. - Nocturnal dyspnea or orthopnea denied. - No edema in lower extremities. - No nausea or emesis. - No blurred or double vision. - No lumps, bumps, or swelling in the neck. - No cough or wheeze. - No headaches. - No history of smoking; exposed to secondhand smoke. - Sister reports recent subtle changes in eye tracking and balance. - Sister notes unsteadiness when standing up, with occasional swaying. - Sister reports Homar lives alone and is active, not sedentary. Anemia: - Mild anemia noted. - Recently started on iron supplementation. - Experienced diarrhea for a couple of days after starting iron, now resolved. - Reports difficulty sleeping and abdominal discomfort on and Friday, unsure if related to iron supplementation. 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 Disturbance of skin sensation Dupuytren's contracture of foot Kidney replaced by transplant ([facility]) 04/2008 Pancreas transplant 04/2008 Type II or unspecified type diabetes mellitus without mention of complication, not stated as uncontrolled Unspecified essential hypertension PAST SURGICAL HISTORY Procedure Laterality Date AMPUTATION FOREARM THROUGH RADIUS AND ULNA 1991 left ARTERIOVENOUS ANASTOMOSIS OPEN DIRECT 07/08/06 RIGHT FOREARM AV FISTULA CREATION BALLN ANGIOPLASTY,PERC VENOUS 09/08/06 BALLN ANGIOPLASTY,PERC VENOUS 10/08/06 FISTULOGRAM BALLN ANGIOPLASTY,PERC VENOUS 12/05/06 RIGHT BALLN ANGIOPLASTY,PERC VENOUS 01/19/07 BALLN ANGIOPLASTY,PERC VENOUS 04/01/07 BALLN ANGIOPLASTY,PERC VENOUS 10/14/07 COLONOSCOPY FLX DX W/COLLJ SPEC WHEN PFRMD 01/12/2003 Colonoscopy INSJ FRANK VAD REQ 2 CATH 2 SITS W/O SUBQ PORT/ENROLLMENT SERVICES DEAN 09/18/06 LEFT INTERNAL JUGULAR PAST SURGICAL HISTORY OF 07/2008 OS for DM/"macular degeneration" PAST SURGICAL HISTORY OF kidney and pancreas transplant 2007 PAST SURGICAL HISTORY OF 1991 LEFT HAND AMPUTEE PAST SURGICAL HISTORY OF [address] CATH AV DIALYSIS SHUNT 09/08/06 PLACE CATH AV DIALYSIS SHUNT 10/08/06 PLACE CATH AV DIALYSIS SHUNT 12/05/[address] CATH AV DIALYSIS SHUNT 01/19/07 PLACE CATH AV DIALYSIS SHUNT 04/01/07 PLACE CATH AV DIALYSIS SHUNT 10/14/07 RMVL FRANK CVC W/O SUBQ PORT/ENROLLMENT SERVICES DEAN 5/4/07 Removal of left IJ tessio catheters TRANSCATH STENT INIT VESSEL,PERCUT 10/08/06 TRANSCATH STENT INIT VESSEL,PERCUT 01/19/07 ALLERGIES Doxazosin, Doxycycline, and Penicillins MEDICATIONS Current Outpatient Medications Medication Sig ferrous sulfate (IRON) 325 mg (65 mg iron) tablet Take 1 tablet by mouth two times a day. tacrolimus IR (PROGRAF) 1 mg capsule TAKE 3 CAPSULES BY MOUTH EVERY DAY IN THE MORNING AND TAKE 2 CAPSULES IN THE EVENING mycophenolate Mofetil (CELLCEPT) 500 mg tablet take 1 tablet by mouth twice a day ammonium lactate (LAC-HYDRIN) 12 % lotion Apply to affected area as needed for dry skin. mometasone (ELOCON) 0.1 % cream Apply 1 application to affected area once daily. No current facility-administered medications for this visit. FAMILY HISTORY Problem Relation Age of Onset Diabetes Mother Heart Mother Hypertension Father Diabetes Father Prostate Cancer Father age 60 Heart Paternal Grandfather Prostate Cancer Paternal Uncle Prostate Cancer Paternal Uncle SOCIAL HISTORY[1] REVIEW OF SYSTEMS Head: (+) headaches Eyes: (-) blurred vision, (-) diplopia Ears/Nose/Mouth/Throat: (-) sore throat Neck: (-) neck swelling Cardiovascular: (-) chest pain, (-) palpitations, (-) peripheral edema Respiratory: (-) dyspnea, (-) (more content not included)... [facility] 05-11-2025 Note HNO ID: [id number] Author: TUNG AGUILAR MD Service: ? Author Type: Physician Type: Progress Notes Filed: 05/11/2025 10:45 Note Text: Homar Fallon is a 59 year old male here for a Medicare wellness visit. Medicare Health Risk Assessment General Health fair Exercise: Minutes/Day 40 minutes Exercise: Days/Week 7 Alcohol: Daily Use no Alcohol: Drinks/Day no Alcohol: 6 or more drinks no Feel off balance See notes. Concerns: Teeth/Dentures no Concerns: Sexual function no Troubled by feelings no Frequency: Eating healthy diet Every days. ADLs requiring help none Safety precautions in home/vehicle yes Smoke, vape, chews tobacco no Difficulty hearing none Difficulty seeing no Current Providers Specialists: I have reviewed specialist-related care of the patient in the medical record. Current care team: Patient Care Team: Tung Aguilar MD as PCP - General (Family Medicine) Leticia Jasso APRN.GERIATRIC SOCIAL WORKER as Sound Effects Technician (Family Medicine) Alicia Chen APRN.KALIA as Sound Effects Technician (Family Medicine) Mehran Urrutia, WILLIAM-nephrology/transplant. No Dr Valdez, blender operator. Dr Fink, surgery Dr Barraza, GASTROENTEROLOGY Dr Lopez, optho Medical/Family history review Reviewed and updated problem list, medical/surgical/family/social history, medications, and allergies. Opioid use review Opioid Medications (last 90 days) No data to display Anxiety/Depression screening (Lower risk for depression) (Lower risk for anxiety) Recommendation: no further intervention at this time Cognitive screening 3/5 Cognitive screening reviewed and No further action needed (score 3-5). Functional Observation Was the patient's Timed Up AND Go test unsteady or >= 12 seconds? No Advance Care Planning Surrogate decision maker and/or advance care plan documented Measurements BP 122/62 Pulse 83 Wt 84.4 kg (186 lb) SpO2 96% BMI 27.47 kg/m? Vision Screening: Follows with optometry/ophthalmology Homar Fallon is a 59-year-old male with a history of diabetes, orthostatic hypotension, and kidney and pancreas transplants, presenting for an annual wellness visit. HPI Annual Wellness Exam: - Denies syncope, chest pain, palpitations, edema, headaches, paresthesias, weakness, blurred vision, speech issues, dysphagia, abdominal pain, diarrhea, constipation, hematuria, dysuria, dyspnea, cough, or wheezing. - No issues with dentures or sexual functioning. - Denies feeling down, depressed, hopeless, or losing interest in activities over the past two weeks. - Denies feeling nervous, anxious, or unable to control worrying. - Denies changes in moles or rashes. - Denies alcohol, tobacco, or vaping use. - Wears seatbelts in the car; has adequate lighting and handrails at home. - No issues with ADLs; does all cooking and cleaning independently. - No issues with hearing or vision. - Has a medical living will; sisters are designated to make medical decisions if needed. - Sees Dr. Lopez at [facility] for ophthalmology. - Sees Dr. Valdez for podiatry. - Follow-up with Dr. Julien for bezoar and gastroparesis as needed. - Sees Dr. Barraza for gastroenterology. - Follow-up with urology a few years ago; last PSA was normal. - Takes CellCept and Prograf. - Denies opioid use. Diabetes: - A1c improved to 6.0 on 05/09. - Working out 40 minutes daily, 7 days a week; walking. - Eliminated sugary drinks; watching starches and carbs. - No alcohol consumption. - Weight decreased from 197 lbs in February to 186 lbs currently. Orthostatic Hypotension: - Reports dizziness and lightheadedness since transplant. - Denies syncope. - Reports leg shaking and falling, possibly related to dehydration. - Advised to wear support hose and stay hydrated. - has been noted since his transplant. 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 Denies syncope. Dupuytren's Contracture: - Contractures in hands are "doing pretty good." Amputation: - Left wrist stump is "doing okay." MEDICATIONS: Current Outpatient Medications Medication Sig tacrolimus IR (PROGRAF) 1 mg capsule TAKE 3 CAPSULES BY MOUTH EVERY DAY IN THE MORNING AND TAKE 2 CAPSULES IN THE EVENING mycophenolate Mofetil (CELLCEPT) 500 mg tablet take 1 tablet by mouth twice a day ammonium lactate (LAC-HYDRIN) 12 % lotion Apply to affected area as needed for dry skin. mometasone (ELOCON) 0.1 % cream Apply 1 application to affected area once daily. No current facility-administered medications for this visit. ALLERGIES: ALLERGIES Allergen Reactions Doxazosin GI Upset Doxycycline Rash Penicillins rash PAST MEDICAL HISTORY Diagnosis Date Acute pancreatitis ([facility]) Amputee ([facility]) 1991 LEFT HAND Disturbance of skin sensation Dupuytren's contracture of foot Kidney replaced by transplant ([facility]) 04/2008 Pancreas transplant 04/2008 Type II or unspecified type diabetes mellitus without mention of complicati (more content not included)... [facility] 03-18-2025 Telephone encounter Note The following approved medication requests have been transmitted electronically. Requested Prescriptions Signed Prescriptions Disp Refills tacrolimus IR (PROGRAF) 1 mg capsule 450 capsule 4 Sig: TAKE 3 CAPSULES BY MOUTH EVERY DAY IN THE MORNING AND TAKE 2 CAPSULES IN THE EVENING Authorizing Provider: MEHRAN URRUTIA APRN.GERIATRIC SOCIAL WORKER [facility] 03-18-2025 Miscellaneous Notes The following approved medication requests have been transmitted electronically. Requested Prescriptions Signed Prescriptions Disp Refills tacrolimus IR (PROGRAF) 1 mg capsule 450 capsule 4 Sig: TAKE 3 CAPSULES BY MOUTH EVERY DAY IN THE MORNING AND TAKE 2 CAPSULES IN THE EVENING Authorizing Provider: MEHRAN URRUTIA APRN.CNP [facility] 02/07/2025 Patient phones requesting refills as follows: Requested Prescriptions Pending Prescriptions Disp Refills tacrolimus IR (PROGRAF) 1 mg capsule [Pharmacy Med Name: TACROLIMUS 1 MG CAPSULE (IR)] 450 capsule 4 Sig: TAKE 3 CAPSULES BY MOUTH EVERY DAY IN THE MORNING AND TAKE 2 CAPSULES IN THE EVENING Please review and advise. Madelin Padgett documented in this encounter [facility] 03-16-[address] [facility] 02/07/2025 Patient phones requesting refills as follows: Requested Prescriptions Pending Prescriptions Disp Refills tacrolimus IR (PROGRAF) 1 mg capsule [Pharmacy Med Name: TACROLIMUS 1 MG CAPSULE (IR)] 450 capsule 4 Sig: TAKE 3 CAPSULES BY MOUTH EVERY DAY IN THE MORNING AND TAKE 2 CAPSULES IN THE EVENING Please review and advise. Madelin Padgett [facility] 03-10-2025 Note HNO ID: [id number] Author: ?, ?, ? Service: ? Author Type: ? Type: Progress Notes Filed: 03/10/2025 12:43 Note Text: POPULATION HEALTH NAVIGATION OUTREACH Action/FYI Patient outreach for Hcc gaps; Frannie, EMERALD, KED. Spoke with patient, would not give , upset for reach out. Understands what he is due for. Reason for Outreach Care Gap/HCC or Scheduling Wellness Visits Care Gaps due: Colorectal Cancer Screening Diabetic Eye Exam KED Patient Contacted: Spoke to patient/parent/or legal guardian Patient identified by name and : No Navigation Signature: Court Rhodes March 10, 2025 12:34 PM [facility] 03-10-2025 History of Present illness Narrative POPULATION HEALTH NAVIGATION OUTREACH Action/FYI Patient outreach for Hcc gaps; Frannie, EMERALD, KED. Spoke with patient, would not give , upset for reach out. Understands what he is due for. Reason for Outreach Care Gap/HCC or Scheduling Wellness Visits Care Gaps due: Colorectal Cancer Screening Diabetic Eye Exam KED Patient Contacted: Spoke to patient/parent/or legal guardian Patient identified by name and : No Navigation Signature: Court Rhodes March 10, 2025 12:34 PM documented in this encounter [facility] 03-10-2025 Note Patient Outreach (NE TNAV) HOMAR FALLON ([id number]) 1965 M Date Time Provider Department 03/10/25 TUNG AGUILAR During your visit today, we recorded the following information about you: Court Nayak 03/10/2025 12:43 PM Signed POPULATION HEALTH NAVIGATION OUTREACH Action/FYI Patient outreach for Hcc gaps; Frannie, EMERALD, KED. Spoke with patient, would not give , upset for reach out. Understands what he is due for. Reason for Outreach Care Gap/HCC or Scheduling Wellness Visits Care Gaps due: Colorectal Cancer Screening Diabetic Eye Exam KED Patient Contacted: Spoke to patient/parent/or legal guardian Patient identified by name and : No Navigation Signature: Court Rhodes March 10, 2025 12:34 PM Allergies As of Date: 03/10/2025 Noted Allergy Reaction DOXAZOSIN 04/28/2006 8 - GI Upset DOXYCYCLINE 07/20/2020 2 - Rash PENICILLINS 04/05/2003 Comments: rash Date Reviewed: 02/07/2025 Reviewed by: Martina Esquivel OCCA - Fully Assessed Reason for Visit: Population Health Navigation Outreach [3910] Cmt: Timothy Wheatley Duglas Prescriptions as of 03/10/2025 - ammonium lactate (LAC-HYDRIN) 12 % lotion Apply to affected area as needed for dry skin. - mometasone (ELOCON) 0.1 % cream Apply 1 application to affected area once daily. - mycophenolate Mofetil (CELLCEPT) 500 mg tablet take 1 tablet by mouth twice a day - sildenafil (VIAGRA) 100 mg tablet Take 1 tablet by mouth as needed. 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] 08/26/2006 ORGAN TRANSPLANT,PANCREAS [Z94.83] 04/20/2008 KIDNEY TRANSPLANT STATUS [Z94.0] 04/20/2008 Leukocytopenia, unspecified [D72.819] 07/27/2008 04/17/2023 History of cytomegalovirus infection [Z86.19] 12/29/2008 Dupuytren's Contracture of Hand [M72.0] 08/24/2009 Dupuytren's Disease [M72.0] 09/06/2009 Pain in limb [M79.609] 11/06/2009 04/17/2023 Other Joint Derangement, not Elsewhere Classifi*11/06/2009 Pancreas transplant 04/05/2008 08/16/2012 Dupuytren's contracture of foot [M72.2] 04/17/2023 Prophylactic immunotherapy [Z29.89] 07/13/2012 H/O pancreas transplant (HCC) [Z94.83] 08/16/2012 08/30/2020 Stiffness of joint, not elsewhere classified, h*10/26/2012 10/17/2022 Neck pain [M54.2] 09/10/2013 04/17/2023 Deafferentation pain [R52] 05/09/2014 Chronic pain [G89.29] 01/18/2015 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, W44.F1XA] 04/16/2022 04/19/2024 Acute gastric erosion [K25.3] 04/16/2022 10/17/2022 Cellulitis of foot [L03.119] 10/17/2022 10/17/2022 Dysphagia, unspecified [R13.10] 04/12/2022 10/17/2022 Gastroesophageal reflux disease [K21.9] 01/01/2022 Gastroparesis [K31.84] 08/13/2022 Local infection of skin and subcutaneous tissue*10/17/2022 10/17/2022 Neuropathy [G62.9] 10/17/2022 04/17/2023 Onychomycosis due to dermatophyte [B35.1] 10/17/2022 10/17/2022 Osteomyelitis (HCC) [M86.9] 10/17/2022 10/17/2022 Osteomyelitis of left foot (HCC) [M86.9] 10/17/2022 04/17/2023 Polyneuropathy due to type 2 diabetes mellitus *10/17/2022 Weakness [R53.1] 10/17/2022 04/17/2023 Immunosuppression (HCC) [D84.9] 04/17/2023 History of osteomyelitis [Z87.39] 04/17/2023 Bezoar [T18.9XXA, W44.F1XA] 06/04/2023 Immunosuppressive management encounter followin*06/05/2023 Thrombocytopenia (HCC) [D69.6] 10/22/2024 Encounter Status:Closed by COURT NAYAK on 03/10/25 [facility] 02-07-2025 Instructions Mehran Urrutia APRN.GERIATRIC SOCIAL WORKER - 02/07/2025 9:02 AM EDT We discussed your recent episode of leg weakness and trembling: - This episode was likely due to a combination of dehydration and a drop in blood pressure while working outside on a warm day. - Your seated blood pressure today was 122/68, which is excellent. However, when standing, it dropped to 92/50, which is consistent with previous readings. - To help prevent future episodes: - Stay well-hydrated, especially on warm days or when working outside. Keep water readily available and sip it throughout the day. - Consider drinking Gatorade Zero (no sugar) for electrolytes on hot days. Sip it rather than drinking large amounts at once. - Wear compression socks during outdoor activities or prolonged standing to help maintain blood pressure. These can be purchased at a [employer] Do not wear them at night or when resting indoors. - Take your time when standing up from a seated position to avoid dizziness or lightheadedness. We discussed your A1c and blood sugar levels: - Your A1c has increased from 5.6 to 6.2, indicating that your average blood sugar levels are higher than normal. This suggests prediabetes or early type 2 diabetes. - To address this, we agreed to focus on lifestyle changes over the next three months: - Reduce carbohydrate intake, including foods like potato salad, macaroni salad, and other high-carb items. If you enjoy these foods, limit portion sizes and avoid keeping them at home. - Avoid consuming calories through beverages. Switch to diet or zero-calorie drinks, such as diet green tea, flavored water, or diet soda. To use up your current supply of regular green tea, dilute it with water before drinking. - Incorporate more physical activity, such as walking. Start with short walks on your driveway or nearby areas and gradually increase as tolerated. - Aim to lose 5 pounds over the next three months, as even modest weight loss can improve blood sugar control. - We will recheck your A1c in early May before your appointment with Dr. Aguilar. Please schedule your lab work for May 07 or later to ensure accurate results. We reviewed your lab results: - Kidney function, pancreas enzymes, and blood counts are all excellent. You are not anemic, and your platelets are within the normal range. - Your tacrolimus level is 8.7, which is improved from 10.5 at your last visit. Continue taking tacrolimus 2 mg twice daily (2 mg in the morning and 2 mg in the evening). - Your urinalysis showed no protein and only trace microscopic blood, which is not concerning at this time. We will continue to monitor this periodically. We discussed general health and follow-up: - Your appetite is good, and you are not experiencing nausea, vomiting, diarrhea, constipation, urinary issues, swelling, shortness of breath, chest pain, or heart palpitations. - Your physical exam today was normal. - Standing lab orders have been placed through February 07, 2026. Please ensure labs are completed every three months as scheduled. , Next steps: - Focus on hydration, dietary changes, and increased physical activity as discussed. - Schedule your next lab work for May 07 or later, prior to your appointment with Dr. Aguilar on May 11. - Contact our office if you experience any new or worsening symptoms, such as dizziness, fainting, or significant changes in your health. documented in this encounter [facility] 02-07-2025 Note HNO ID: [id number] Author: MEHRAN URRUTIA APRN.KALIA Service: ? Author Type: Nurse Practitioner Type: Progress Notes Filed: 02/10/2025 23:37 Note Text: Recording using [employer] software for draft documentation of the visit was discussed with the patient/authorized district representative; all questions welcomed and answered. Patient/authorized district representative agreed to proceed Department of Kidney Medicine Medical Specialties [place] [facility] CHIEF COMPLAINT: post tx follow up care HPI: Mr. Fallon is a 59 year old male who presents for follow up of a Simultaneous Kidney-Pancreas transplant. 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 - No known hx of CAD; previously on Plavix related to recurrent clotted RUE access - Hx of Right Hand surgery for Dupuytren's contract Right hand warts 2019 Hospitalizations locally for cellulitis and osteomyelitis in L foot, underwent 2nd toe Amputation Rx with Bactrim--azotemia reportedly noted, wound vac 06/04/[address] Julien for gastric bezoar 01/29/24 office visit with me TAC reduced to 2mg BID Encouraged to reduce CHO intake Interval Events: Homar is a 59-year-old male with a history of kidney and pancreas transplant, presenting for follow-up. 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 He describes a sudden onset of tremors and leg weakness, resulting in a fall. He denies loss of consciousness, head injury, or any other injuries during the incident. He suspects the episode may have been due to a combination of hypotension and dehydration, although he reports normally drinking a significant amount of water and avoiding sodas. He denies any recent changes in appetite, nausea, emesis, diarrhea, constipation, dysphagia, odynophagia, urinary issues, hematuria, cough, dyspnea, chest pain, or palpitations. Homar has a history of type 1 diabetes mellitus and notes a recent increase in carbohydrate intake, including foods such as potato soup, macaroni salad, and potato salads. He also reports drinking non-diet green tea for the past six months. He acknowledges that his carbohydrate intake has increased. Ears/Nose/Mouth/Throat: (-) difficulty chewing, (-) dysphagia Cardiovascular: (-) chest pain, (-) palpitations, (-) edema Respiratory: (-) cough, (-) shortness of breath Gastrointestinal: (-) nausea, (-) vomiting, (-) diarrhea, (-) constipation Genitourinary: (-) dysuria, (-) hematuria Neurological: (+) tremors, (+) leg weakness, (-) syncope MEDICATIONS: ammonium lactate (LAC-HYDRIN) 12 % lotion Apply to affected area as needed for dry skin. mometasone (ELOCON) 0.1 % cream Apply 1 application to affected area once daily. mycophenolate Mofetil (CELLCEPT) 500 mg tablet take 1 tablet by mouth twice a day sildenafil (VIAGRA) 100 mg tablet Take 1 tablet by mouth as needed. tacrolimus IR (PROGRAF) 1 mg capsule Take (2) capsules by mouth twice daily ALLERGIES: ALLERGIES Allergen Reactions Doxazosin GI Upset Doxycycline Rash Penicillins rash PHYSICAL EXAM: BP 122/68 (BP Site: Right Arm, BP Position: Sitting, BP Cuff Size: Regular Adult) Pulse 87 Ht 175.3 cm (5' 9") Wt 89.5 kg (197 lb 5 oz) BMI 29.14 kg/m? BP - standardized method Pulse 1 BP #1: 121/69 Pulse #1: 86 beats/min 2 BP #2 : 122/67 Pulse #2 : 89 beats/min 3 BP #3 : 124/67 Pulse #3 : 86 beats/min Average Average BP: 122/68 Average Pulse: 87 beats/min Orthostatic vitals Supine Sitting Standing Standing BP : 92/50 Standing pulse : 91 BP cuff location BP cuff location: Right upper arm BP cuff size BP cuff size: regular adult Comments for BP values First BP (right) First BP (left) Last 3 Encounter BP Readings: Date: BP: 02/07/2025 122/68 10/22/2024 130/80 08/23/2024 118/72 Constitutional: No acute distress, Responsive, Normal habitus, Well-nourished, and accompanied by his sisterMitzi Eyes: Conjunctiva clear and sclerae anicteric Ear, Nose, and Throat: Hearing normal, Lips normal, and Dentition normal Neck:Trachea midline No jugular venous distension Cardiovascular:Regular rate and rhythm, normal S1 and S2, no murmurs, rubs, or gallops No peripheral edema Respiratory: Normal respiratory effort. Lungs clear bilaterally. Abdomen:Soft, non-tender, non-distended. Normal bowel sounds. No hepatosplenomegaly. Psychiatric: Alert and oriented x self, place, time, and setting Normal mood/affectDATA: Diagnostic tests reviewed for today's visit: Blood work, imaging studies, and office notes were reviewed in [facility] ASSESSMENT/PLAN: 59 year old male who presents with 1. Kidney 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) (Z94.0) Excellent kidney function. No urinary issues reported. Urinalysis shows no proteinuria, but trace microscopic hematuria noted. - Monitor hematuria periodically. 2. Pancrea (more content not included)... [facility] 02-07-2025 History of Present illness Narrative Images from the original note were not included. Recording using [employer] software for draft documentation of the visit was discussed with the patient/authorized district representative; all questions welcomed and answered. Patient/authorized district representative agreed to proceed Department of Kidney Medicine Medical Specialties [place] [facility] CHIEF COMPLAINT: post tx follow up care HPI: Mr. Fallon is a 59 year old male who presents for follow up of a Simultaneous Kidney-Pancreas transplant. 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 - No known hx of CAD; previously on Plavix related to recurrent clotted RUE access - Hx of Right Hand surgery for Dupuytren's contract Right hand warts 2020 Hospitalizations locally for cellulitis and osteomyelitis in L foot, underwent 2nd toe Amputation Rx with Bactrim--azotemia reportedly noted, wound vac\\ 06/04/[address] Julien for gastric bezoar 01/29/24 office visit with me TAC reduced to 2mg BID Encouraged to reduce CHO intake Interval Events: Homar is a 59-year-old male with a history of kidney and pancreas transplant, presenting for follow-up. 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 He describes a sudden onset of tremors and leg weakness, resulting in a fall. He denies loss of consciousness, head injury, or any other injuries during the incident. He suspects the episode may have been due to a combination of hypotension and dehydration, although he reports normally drinking a significant amount of water and avoiding sodas. He denies any recent changes in appetite, nausea, emesis, diarrhea, constipation, dysphagia, odynophagia, urinary issues, hematuria, cough, dyspnea, chest pain, or palpitations. Homar has a history of type 1 diabetes mellitus and notes a recent increase in carbohydrate intake, including foods such as potato soup, macaroni salad, and potato salads. He also reports drinking non-diet green tea for the past six months. He acknowledges that his carbohydrate intake has increased. Ears/Nose/Mouth/Throat: (-) difficulty chewing, (-) dysphagia Cardiovascular: (-) chest pain, (-) palpitations, (-) edema Respiratory: (-) cough, (-) shortness of breath Gastrointestinal: (-) nausea, (-) vomiting, (-) diarrhea, (-) constipation Genitourinary: (-) dysuria, (-) hematuria Neurological: (+) tremors, (+) leg weakness, (-) syncope MEDICATIONS: ammonium lactate (LAC-HYDRIN) 12 % lotion Apply to affected area as needed for dry skin. mometasone (ELOCON) 0.1 % cream Apply 1 application to affected area once daily. mycophenolate Mofetil (CELLCEPT) 500 mg tablet take 1 tablet by mouth twice a day sildenafil (VIAGRA) 100 mg tablet Take 1 tablet by mouth as needed. tacrolimus IR (PROGRAF) 1 mg capsule Take (2) capsules by mouth twice daily ALLERGIES: ALLERGIES Allergen Reactions Doxazosin GI Upset Doxycycline Rash Penicillins rash PHYSICAL EXAM: BP 122/68 (BP Site: Right Arm, BP Position: Sitting, BP Cuff Size: Regular Adult) Pulse 87 Ht 175.3 cm (5' 9") Wt 89.5 kg (197 lb 5 oz) BMI 29.14 kg/m BP - standardized method Pulse 1 BP #1: 121/69 Pulse #1: 86 beats/min 2 BP #2 : 122/67 Pulse #2 : 89 beats/min 3 BP #3 : 124/67 Pulse #3 : 86 beats/min Average Average BP: 122/68 Average Pulse: 87 beats/min Orthostatic vitals Supine Sitting Standing Standing BP : 92/50 Standing pulse : 91 BP cuff location BP cuff location: Right upper arm BP cuff size BP cuff size: regular adult Comments for BP values First BP (right) First BP (left) Last 3 Encounter BP Readings: Date: BP: 02/07/2025 122/68 10/22/2024 130/80 08/23/2024 118/72 Constitutional: No acute distress, Responsive, Normal habitus, Well-nourished, and accompanied by his sister, Mitzi Eyes: Conjunctiva clear and sclerae anicteric Ear, Nose, and Throat: Hearing normal, Lips normal, and Dentition normal Neck:Trachea midline No jugular venous distension Cardiovascular:Regular rate and rhythm, normal S1 and S2, no murmurs, rubs, or gallops No peripheral edema Respiratory: Normal respiratory effort. Lungs clear bilaterally. Abdomen:Soft, non-tender, non-distended. Normal bowel sounds. No hepatosplenomegaly. Psychiatric: Alert and oriented x self, place, time, and setting Normal mood/affectDATA: Diagnostic tests reviewed for today's visit: Blood work, imaging studies, and office notes were reviewed in [facility] ASSESSMENT/PLAN: 59 year old male who presents with 1. Kidney 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) (Z94.0) Excellent kidney function. No urinary issues reported. Urinalysis shows no proteinuria, but trace microscopic hematuria noted. - Monitor hematuria periodically. 2. 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 A1c increased from 5.6% to 6.2%, indicating possible insulin resistance. - Discussed dietary modifications to reduce carbohydrate intake and eliminate caloric beverages. - Encouraged regular physical activity, such as walking. - Repeat A1c in three months before the appointment with Dr. Aguilar on May 11. - Placed standing orders for labs every three months, valid until 02/07/26. 3. Hx of Type I diabetes mellitus with manifestations ([facility]) (E10.8) s/p Pancreas Transplant Patient exhibits signs of insulin resistance, likely due to lifestyle factors rather than pancreatic insufficiency. - Monitor blood glucose levels and A1c. - Implement dietary changes to reduce carbohydrate intake. - Follow-up with Dr. Aguilar in May to assess the need for oral hypoglycemic agents. 4. Thrombocytopenia (D69.6) Platelet count is within normal range, an improvement from previous low levels. 5. Pure hypercholesterolemia (E78.00) 6. Aftercare following organ transplant (Z48.298) Stable on tacrolimus 2 mg BID; current level is 8.7 ng/mL, improved from 10.5 ng/mL. - Continue tacrolimus 2 mg BID. - Monitor tacrolimus levels; consider dosage adjustment if levels fall below 7 ng/mL. 7. Orthostatic hypotension (I95.1) Recent episode of leg weakness and tremors likely due to dehydration and orthostatic hypotension. Blood pressure readings show a drop from 122/68 mmHg seated to 92/50 mmHg standing. - Emphasized the importance of maintaining hydration, especially during outdoor activities. - Recommended wearing compression socks during prolonged standing or outdoor work. - Advised sipping Gatorade Zero for electrolyte replenishment on hot days. - Instructed to rise slowly from sitting or lying positions to prevent dizziness. 8. Screening for genitourinary condition (Z13.89) No urinary issues reported. Urinalysis shows no proteinuria, but trace microscopic hematuria noted. - Monitor hematuria periodically. Disclosures: Parts of the current progress note may have been copied from a previous note, updates have been made as clinically relevant. Mehran Urrutia APRN.[facility] Staff, Department of Kidney Medicine 02/07/2025 8:38 AM CC: PRIMARY CARE PHYSICIAN: Tung Aguilar MD documented in this encounter [facility] 02-07-2025 Note Patient Outreach (KI DMMN) HOMAR FALLON ([id number]) 1965 M Date Time Provider Department 02/07/25 MEHRAN URRUTIA During your visit today, we recorded the following information about you: Allergies As of Date: 02/07/2025 Noted Allergy Reaction DOXAZOSIN 04/28/2006 8 - GI Upset DOXYCYCLINE 07/20/2020 2 - Rash PENICILLINS 04/05/2003 Comments: rash Date Reviewed: 02/07/2025 Reviewed by: Martina Esquivel OCCA - Fully Assessed Visit Diagnosis:Screening for genitourinary condition [Z13.89] Order(s):UA DIP, URINE (POC) [[id number]] Order #: [id number] FUTURE Prescriptions as of 02/10/2025 - ammonium lactate (LAC-HYDRIN) 12 % lotion Apply to affected area as needed for dry skin. - mometasone (ELOCON) 0.1 % cream Apply 1 application to affected area once daily. - mycophenolate Mofetil (CELLCEPT) 500 mg tablet take 1 tablet by mouth twice a day - sildenafil (VIAGRA) 100 mg tablet Take 1 tablet by mouth as needed. - tacrolimus IR (PROGRAF) 1 mg capsule Take (2) capsules by mouth twice daily Problem List As Of Date 02/07/2025 Noted Resolved Diabetes mellitus type I (HCC) [E10.9] 09/17/2005 Essential hypertension [I10] 09/17/2005 Diabetes with renal manifestations [250.4] 10/08/2005 08/16/2012 PURE HYPERCHOLESTEROLEM [E78.00] 10/22/2005 Renal failure [N19] 06/20/2006 MALFUNC VASC DEVICE/CARRIE [T82.598A] 08/26/2006 ORGAN TRANSPLANT,PANCREAS [Z94.83] 04/20/2008 KIDNEY TRANSPLANT STATUS [Z94.0] 04/20/2008 Leukocytopenia, unspecified [D72.819] 07/27/2008 04/17/2023 History of cytomegalovirus infection [Z86.19] 12/29/2008 Dupuytren's Contracture of Hand [M72.0] 08/24/2009 Dupuytren's Disease [M72.0] 09/06/2009 Pain in limb [M79.609] 11/06/2009 04/17/2023 Other Joint Derangement, not Elsewhere Classifi*11/06/2009 Pancreas transplant 04/05/2008 08/16/2012 Dupuytren's contracture of foot [M72.2] 04/17/2023 Prophylactic immunotherapy [Z29.89] 07/13/2012 H/O pancreas transplant (HCC) [Z94.83] 08/16/2012 08/30/2020 Stiffness of joint, not elsewhere classified, h*10/26/2012 10/17/2022 Neck pain [M54.2] 09/10/2013 04/17/2023 Deafferentation pain [R52] 05/09/2014 Chronic pain [G89.29] 01/18/2015 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, W44.F1XA] 04/16/2022 04/19/2024 Acute gastric erosion [K25.3] 04/16/2022 10/17/2022 Cellulitis of foot [L03.119] 10/17/2022 10/17/2022 Dysphagia, unspecified [R13.10] 04/12/2022 10/17/2022 Gastroesophageal reflux disease [K21.9] 01/01/2022 Gastroparesis [K31.84] 08/13/2022 Local infection of skin and subcutaneous tissue*10/17/2022 10/17/2022 Neuropathy [G62.9] 10/17/2022 04/17/2023 Onychomycosis due to dermatophyte [B35.1] 10/17/2022 10/17/2022 Osteomyelitis (HCC) [M86.9] 10/17/2022 10/17/2022 Osteomyelitis of left foot (HCC) [M86.9] 10/17/2022 04/17/2023 Polyneuropathy due to type 2 diabetes mellitus *10/17/2022 Weakness [R53.1] 10/17/2022 04/17/2023 Immunosuppression (HCC) [D84.9] 04/17/2023 History of osteomyelitis [Z87.39] 04/17/2023 Bezoar [T18.9XXA, W44.F1XA] 06/04/2023 Immunosuppressive management encounter followin*06/05/2023 Thrombocytopenia (HCC) [D69.6] 10/22/2024 Encounter Status:Closed by CogniaKEITHUSER on 02/10/25 [facility] 10-25-2024 Telephone encounter Note Detailed message left for patient to contact Dr. Barraza's office. Referral faxed to Dr. Barraza. [facility] 10-25-2024 Miscellaneous Notes Detailed message left for patient to contact Dr. Barraza's office. Referral faxed to Dr. Barraza. Would recommend he follow with Dr Barraza for colonoscopy Spoke with patient. He states he thought Dr. Barraza did a colonoscopy at the time of the upper GI. I explained to him we don't show record of that. He said he could have been mistaken then thinking the upper GI was the same thing. Niki Simpson MA Let him know we are finding records of upper scopes performed at [facility] by Dr. Barraza Is he sure his last colonoscopy was done therE? Double check where and when he thought he had it done and see if we can get the records. documented in this encounter [facility] 10-23-2024 Telephone encounter Note Would recommend he follow with Dr Barraza for colonoscopy [facility] 10-23-2024 Telephone encounter Note Spoke with patient. He states he thought Dr. Barraza did a colonoscopy at the time of the upper GI. I explained to him we don't show record of that. He said he could have been mistaken then thinking the upper GI was the same thing. Niki Simpson MA [facility] 10-23-2024 Telephone encounter Note Let him know we are finding records of upper scopes performed at [facility] by Dr. Barraza Is he sure his last colonoscopy was done therE? Double check where and when he thought he had it done and see if we can get the records. [facility] 10-22-2024 History of Present illness Narrative Patient presents with: 6 Month Exam HPI: Patient presents today for office visit for routine 6 month follow up. Saw Trino Barajas and Leticia Jasso back in August for itchy red rash on lower left arm. Was given oral abx and Rx for clotrimazole. Abx competed. Still using clotrimazole. No longer itches but rash still present. They thought it was either fungal or an erythema migrans. Is better. ED: Continues taking Viagra prn. No issues. Denies chest pain and shortness of breath. Denies dizziness. No swelling. Follows with Nephrology yearly. Doing well. Labs recently done. Sees podiatry. Continues to follow with transplant No longer sees GI. Doing well. Platelets have not changed in almost twenty years. See hematology if worsens. Latest Ref Rng 10/18/2024 WBC 3.70 - 11.00 k/uL 5.73 RBC 4.20 - 6.00 m/uL 5.62 Hemoglobin 13.0 - 17.0 g/dL 15.1 Hematocrit 39.0 - 51.0 % 45.4 MCV 80.0 - 100.0 fL 80.8 MCH 26.0 - 34.0 pg 26.9 MCHC 30.5 - 36.0 g/dL 33.3 RDW-CV 11.5 - 15.0 % 14.2 Platelet Count 150 - 400 k/uL 130 (L) MPV 9.0 - 12.7 fL 10.3 Neut% % 50.1 Abs Neut (ANC) 1.45 - 7.50 k/uL 2.87 Lymph% % 37.5 Abs Lymph 1.00 - 4.00 k/uL 2.15 Butts% % 8.6 Abs Butts <0.87 k/uL 0.49 Eosin% % 2.4 Abs Eosin <0.46 k/uL 0.14 Baso% % 0.9 Abs Baso <0.11 k/uL 0.05 Immature Gran % % 0.5 IMMATURE GRANS (ABS) <0.10 k/uL 0.03 NRBC /100 WBC 0.0 Absolute nRBC <0.01 k/uL <0.01 DTYPE Auto Protein, Total 6.3 - 8.0 g/dL 6.3 Albumin 3.9 - 4.9 g/dL 4.0 Calcium 8.5 - 10.2 mg/dL 9.9 Bilirubin, Total 0.2 - 1.3 mg/dL 0.5 Alkaline Phosphatase 38 - 113 U/L 142 (H) AST 14 - 40 U/L 17 ALT 10 - 54 U/L 17 Glucose 74 - 99 mg/dL 159 (H) BUN 9 - 24 mg/dL 19 Creatinine 0.73 - 1.22 mg/dL 0.73 Sodium 136 - 144 mmol/L 137 Potassium 3.7 - 5.1 mmol/L 3.6 (L) Chloride 98 - 107 mmol/L 106 CO2 22 - 30 mmol/L 24 Anion Gap 8 - 15 mmol/L 7 (L) eGFR >=60 mL/min/1.73m 104 Hemoglobin A1C 4.3 - 5.6 % 5.6 Estimated Average Glucose mg/dL 114 Amylase 30 - 104 U/L 19 (L) Lipase 16 - 61 U/L 17 Tacrolimus/FK506 5.0 - 20.0 ng/mL 10.5 C-Peptide 1.1 - 4.4 ng/mL 5.1 (H) Legend: (L) Low (H) High MEDICATIONS: Current Outpatient Medications Medication Sig mycophenolate Mofetil (CELLCEPT) 500 mg tablet take 1 tablet by mouth twice a day sildenafil (VIAGRA) 100 mg tablet Take 1 tablet by mouth as needed. tacrolimus IR (PROGRAF) 1 mg capsule Take (2) capsules by mouth twice daily No current facility-administered medications for this visit. 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 Type II or unspecified type diabetes mellitus without mention of complication, not stated as uncontrolled Unspecified essential hypertension PAST SURGICAL HISTORY Procedure Laterality Date AMPUTATION FOREARM THROUGH RADIUS & ULNA 1991 left ARTERIOVENOUS ANASTOMOSIS OPEN DIRECT 07/08/06 RIGHT FOREARM AV FISTULA CREATION BALLN ANGIOPLASTY,PERC VENOUS 09/08/06 BALLN ANGIOPLASTY,PERC VENOUS 10/08/06 FISTULOGRAM BALLN ANGIOPLASTY,PERC VENOUS 12/05/06 RIGHT BALLN ANGIOPLASTY,PERC VENOUS 01/19/07 BALLN ANGIOPLASTY,PERC VENOUS 04/01/07 BALLN ANGIOPLASTY,PERC VENOUS 10/14/07 COLONOSCOPY FLX DX W/COLLJ SPEC WHEN PFRMD 01/12/2003 Colonoscopy INSJ FRANK VAD REQ 2 CATH 2 SITS W/O SUBQ PORT/ENROLLMENT SERVICES DEAN 09/18/06 LEFT INTERNAL JUGULAR PAST SURGICAL HISTORY OF 07/2008 OS for DM/"macular degeneration" PAST SURGICAL HISTORY OF kidney and pancreas transplant 2007 PAST SURGICAL HISTORY OF 1991 LEFT HAND AMPUTEE PAST SURGICAL HISTORY OF [address] CATH AV DIALYSIS SHUNT 09/08/06 PLACE CATH AV DIALYSIS SHUNT 10/08/06 PLACE CATH AV DIALYSIS SHUNT 12/05/[address] CATH AV DIALYSIS SHUNT 01/19/07 PLACE CATH AV DIALYSIS SHUNT 04/01/07 PLACE CATH AV DIALYSIS SHUNT 10/14/07 RMVL FRANK CVC W/O SUBQ PORT/ENROLLMENT SERVICES DEAN 02/06/07 Removal of left IJ tessio catheters TRANSCATH STENT INIT VESSEL,PERCUT 10/08/06 TRANSCATH STENT INIT VESSEL,PERCUT 01/19/07 FAMILY HISTORY Problem Relation Age of Onset Diabetes Mother Heart Mother Hypertension Father Diabetes Father Prostate Cancer Father age 60 Heart Paternal Grandfather Prostate Cancer Paternal Uncle Prostate Cancer Paternal Uncle Social History Tobacco Use Smoking status: Never Passive exposure: Never Smokeless tobacco: Never Vaping Use Vaping status: Never Used Substance Use Topics Alcohol use: No Drug use: Not Currently Reviewed current medications, allergies, past medical history, surgical history, family history and social history today. REVIEW OF SYSTEMS All other reviewed and negative other than HPI. HEALTH MAINTENANCE: Reviewed health maintenance issues today and recommended the following in detail. Colorectal Cancer Screening-done by Dr Barraza Pneumococcal Vaccine: 50+(3 of 3 - PPSV23, PCV20 or PCV21) due on 06/02/2018 Covid-19 Vaccine(3 - Pfizer risk series) due on 08/01/2021 Dilated Retinal Exam -is due. Influenza Vaccine(1) due on 06/06/2024 Diabetic Foot Exam -seeing podiatry every three months. Hepatitis B Vaccine(1 of 3 - Risk 3-dose series) Never done RSV Vaccine(1 - Risk 60-74 years 1-dose series) Never done Urine Albumin:Creatinine Ratio due on 11/05/2024 LDL Cholesterol due on 11/05/2024 VITALS: BP 130/80 Pulse 86 Ht 176.5 cm (5' 9.5") Wt 89.4 kg (197 lb 1.5 oz) SpO2 97% BMI 28.69 kg/m Last 4 Encounter Wt Readings: Date: Wt: 08/22/2024 86.9 kg (191 lb 9.3 oz) 04/19/2024 87.5 kg (193 lb) 01/29/2024 90.1 kg (198 lb 10.2 oz) 12/19/2023 90 kg (198 lb 6.4 oz) PHYSICAL EXAMINATION: General appearance: Well appearing, alert, in no acute distress, well-hydrated, well nourished. Skin: almost looks eczematous at this point. Head: Normocephalic, no masses, lesions, tenderness or abnormalities Eyes: Anicteric sclera. Pupils are equally round and reactive to light. Extraocular movements are intact. Lungs: Lungs clear to auscultation. No wheezing, rhonchi, rales Heart: RRR without murmur, gallop, or rubs. No ectopy Abdomen: Normal abdominal exam, Abdomen soft, non-tender. Bowel sounds normal. No masses, organomegaly Extremities: No deformities, edema, skin discoloration, clubbing or cyanosis. Good capillary refill. Musculoskeletal: No joint swelling, deformity, or tenderness ASSESSMENT/PLAN: 1. Essential hypertension - ICD9: 401.9, ICD10: I10 (primary diagnosis) - Controlled - Continue current medications 2. 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) - ICD9: 250.60, 357.2, ICD10: E11.42 - LIPID PANEL BASIC - ALBUMIN/CREATININE RATIO, URINE 3. Pure hypercholesterolemia - ICD9: 272.0, ICD10: E78.00 - follow progress. 4. 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 5. Gastroparesis - ICD9: 536.3, ICD10: K31.84 - doing well. 6. Kidney replaced by transplant - ICD9: V42.0, ICD10: Z94.0 - stale. 7. 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) - ICD9: 250.41, 583.81, ICD10: E10.29 - Controlled - Continue current medications 8. Immunosuppression (HCC) - ICD9: 279.9, ICD10: D84.9 - stable. 9. Thrombocytopenia (HCC) - ICD9: 287.5, ICD10: D69.6 - follow 10. Dermatitis - ICD9: 692.9, ICD10: L30.9 - discussed skin care of rash - follow up if symptoms persist or worsen. - Call if symptoms worsen at all or if not better in one to two weeks - consider derm. - MOMETASONE 0.1 % TOPICAL CREAM Tung Aguilar MD documented in this encounter [facility] 10-22-2024 Note HNO ID: [id number] Author: TUNG AGUILAR MD Service: ? Author Type: Physician Type: Progress Notes Filed: 10/22/2024 09:48 Note Text: Patient presents with: 6 Month Exam HPI: Patient presents today for office visit for routine 6 month follow up. Saw Trino Barajas and Leticia Jasso back in August for itchy red rash on lower left arm. Was given oral abx and Rx for clotrimazole. Abx competed. Still using clotrimazole. No longer itches but rash still present. They thought it was either fungal or an erythema migrans. Is better. ED: Continues taking Viagra prn. No issues. Denies chest pain and shortness of breath. Denies dizziness. No swelling. Follows with Nephrology yearly. Doing well. Labs recently done. Sees podiatry. Continues to follow with transplant No longer sees GI. Doing well. Platelets have not changed in almost twenty years. See hematology if worsens. Latest Ref Rng 10/18/2024 WBC 3.70 - 11.00 k/uL 5.73 RBC 4.20 - 6.00 m/uL 5.62 Hemoglobin 13.0 - 17.0 g/dL 15.1 Hematocrit 39.0 - 51.0 % 45.4 MCV 80.0 - 100.0 fL 80.8 MCH 26.0 - 34.0 pg 26.9 MCHC 30.5 - 36.0 g/dL 33.3 RDW-CV 11.5 - 15.0 % 14.2 Platelet Count 150 - 400 k/uL 130 (L) MPV 9.0 - 12.7 fL 10.3 Neut% % 50.1 Abs Neut (ANC) 1.45 - 7.50 k/uL 2.87 Lymph% % 37.5 Abs Lymph 1.00 - 4.00 k/uL 2.15 Butts% % 8.6 Abs Butts <0.87 k/uL 0.49 Eosin% % 2.4 Abs Eosin <0.46 k/uL 0.14 Baso% % 0.9 Abs Baso <0.11 k/uL 0.05 Immature Gran % % 0.5 IMMATURE GRANS (ABS) <0.10 k/uL 0.03 NRBC /100 WBC 0.0 Absolute nRBC <0.01 k/uL <0.01 DTYPE Auto Protein, Total 6.3 - 8.0 g/dL 6.3 Albumin 3.9 - 4.9 g/dL 4.0 Calcium 8.5 - 10.2 mg/dL 9.9 Bilirubin, Total 0.2 - 1.3 mg/dL 0.5 Alkaline Phosphatase 38 - 113 U/L 142 (H) AST 14 - 40 U/L 17 ALT 10 - 54 U/L 17 Glucose 74 - 99 mg/dL 159 (H) BUN 9 - 24 mg/dL 19 Creatinine 0.73 - 1.22 mg/dL 0.73 Sodium 136 - 144 mmol/L 137 Potassium 3.7 - 5.1 mmol/L 3.6 (L) Chloride 98 - 107 mmol/L 106 CO2 22 - 30 mmol/L 24 Anion Gap 8 - 15 mmol/L 7 (L) eGFR >=60 mL/min/1.73m? 104 Hemoglobin A1C 4.3 - 5.6 % 5.6 Estimated Average Glucose mg/dL 114 Amylase 30 - 104 U/L 19 (L) Lipase 16 - 61 U/L 17 Tacrolimus/FK506 5.0 - 20.0 ng/mL 10.5 C-Peptide 1.1 - 4.4 ng/mL 5.1 (H) Legend: (L) Low (H) High MEDICATIONS: Current Outpatient Medications Medication Sig mycophenolate Mofetil (CELLCEPT) 500 mg tablet take 1 tablet by mouth twice a day sildenafil (VIAGRA) 100 mg tablet Take 1 tablet by mouth as needed. tacrolimus IR (PROGRAF) 1 mg capsule Take (2) capsules by mouth twice daily No current facility-administered medications for this visit. 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 Type II or unspecified type diabetes mellitus without mention of complication, not stated as uncontrolled Unspecified essential hypertension PAST SURGICAL HISTORY Procedure Laterality Date AMPUTATION FOREARM THROUGH RADIUS AND ULNA 1991 left ARTERIOVENOUS ANASTOMOSIS OPEN DIRECT 07/08/06 RIGHT FOREARM AV FISTULA CREATION BALLN ANGIOPLASTY,PERC VENOUS 09/08/06 BALLN ANGIOPLASTY,PERC VENOUS 10/08/06 FISTULOGRAM BALLN ANGIOPLASTY,PERC VENOUS 12/05/06 RIGHT BALLN ANGIOPLASTY,PERC VENOUS 01/19/07 BALLN ANGIOPLASTY,PERC VENOUS 04/01/07 BALLN ANGIOPLASTY,PERC VENOUS 10/14/07 COLONOSCOPY FLX DX W/COLLJ SPEC WHEN PFRMD 01/12/2003 Colonoscopy INSJ FRANK VAD REQ 2 CATH 2 SITS W/O SUBQ PORT/ENROLLMENT SERVICES DEAN 09/18/06 LEFT INTERNAL JUGULAR PAST SURGICAL HISTORY OF 07/2008 OS for DM/"macular degeneration" PAST SURGICAL HISTORY OF kidney and pancreas transplant 2007 PAST SURGICAL HISTORY OF 1991 LEFT HAND AMPUTEE PAST SURGICAL HISTORY OF [address] CATH AV DIALYSIS SHUNT 09/08/06 PLACE CATH AV DIALYSIS SHUNT 10/08/06 PLACE CATH AV DIALYSIS SHUNT 12/05/[address] CATH AV DIALYSIS SHUNT 01/19/07 PLACE CATH AV DIALYSIS SHUNT 04/01/07 PLACE CATH AV DIALYSIS SHUNT 10/14/07 RMVL FRANK CVC W/O SUBQ PORT/ENROLLMENT SERVICES DEAN 02/06/07 Removal of left IJ tessio catheters TRANSCATH STENT INIT VESSEL,PERCUT 10/08/06 TRANSCATH STENT INIT VESSEL,PERCUT 01/19/07 FAMILY HISTORY Problem Relation Age of Onset Diabetes Mother Heart Mother Hypertension Father Diabetes Father Prostate Cancer Father age 60 Heart Paternal Grandfather Prostate Cancer Paternal Uncle Prostate Cancer Paternal Uncle Social History Tobacco Use Smoking status: Never Passive exposure: Never Smokeless tobacco: Never Vaping Use Vaping status: Never Used Substance Use Topics Alcohol use: No Drug use: Not Currently Reviewed current medications, allergies, past medical history, surgical history, fam (more content not included)... [facility] 09-08-2024 Telephone encounter Note Prescription Refill Information The patient has been identified by name and date of : Yes Caregiver verified no other encounters exist for this prescription request: Yes Caregiver confirmed with patient/requestor that no other refills are due, in the near future, with this provider at this time: Yes The last office visit in the department: 08-23-24 Does the patient have a future office visit with this provider/department: Yes Disp Refills Start End clotrimazole (LOTRIMIN) 1 % cream 12 g 0 08/22/2024 08/29/2024 Sig: Apply to affected area two times a day for 7 days. Sent to pharmacy as: clotrimazole (LOTRIMIN) 1 % cream Class: Normal [facility] [place] September 08, 2024 11:22 AM [facility] Work Phone: 09-08-2024 Miscellaneous Notes Prescription Refill Information The patient has been identified by name and date of : Yes Caregiver verified no other encounters exist for this prescription request: Yes Caregiver confirmed with patient/requestor that no other refills are due, in the near future, with this provider at this time: Yes The last office visit in the department: 08-23-24 Does the patient have a future office visit with this provider/department: Yes Disp Refills Start End clotrimazole (LOTRIMIN) 1 % cream 12 g 0 08/22/2024 08/29/2024 Sig: Apply to affected area two times a day for 7 days. Sent to pharmacy as: clotrimazole (LOTRIMIN) 1 % cream Class: Normal [facility] [address] [place] September 08, 2024 11:22 AM documented in this encounter [facility] 08-23-2024 Instructions Leticia Jasso APRN.KALIA - 08/23/2024 11:11 AM EST Start the antibiotic. If you develop a rash, let us know. documented in this encounter [facility] 08-23-2024 Note HNO ID: [id number] Author: LETICIA JASSO APRN.KALIA Service: ? Author Type: Nurse Practitioner Type: Progress Notes Filed: 08/23/2024 20:06 Note Text: This is a 58 year old male who presents today with: Patient presents with: Recheck: Follow up UC- L arm rash HISTORY OF PRESENT ILLNESS: Homar Fallon is a 58 year old male. Patient presents with: Recheck: Follow up UC- L arm rash Pt presents today with complaint of rash on the left forearm. He did present to urgent care on 08/22/24. He was identified as having erythema migrans on the left forearm. He has a doxy and PCN allergy, so he was prescribed ceftin. He went to pick this medication from the pharmacy and per patient was advised by the pharmacy that this is a PCN medication and he should not take this. He has not started the medication. He has not any additional systemic symptoms of lymes disease. 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 Type II or unspecified type diabetes mellitus without mention of complication, not stated as uncontrolled Unspecified essential hypertension PAST SURGICAL HISTORY Procedure Laterality Date AMPUTATION FOREARM THROUGH RADIUS AND ULNA 1991 left ARTERIOVENOUS ANASTOMOSIS OPEN DIRECT 07/08/06 RIGHT FOREARM AV FISTULA CREATION BALLN ANGIOPLASTY,PERC VENOUS 09/08/06 BALLN ANGIOPLASTY,PERC VENOUS 10/08/06 FISTULOGRAM BALLN ANGIOPLASTY,PERC VENOUS 12/05/06 RIGHT BALLN ANGIOPLASTY,PERC VENOUS 01/19/07 BALLN ANGIOPLASTY,PERC VENOUS 04/01/07 BALLN ANGIOPLASTY,PERC VENOUS 10/14/07 COLONOSCOPY FLX DX W/COLLJ SPEC WHEN PFRMD 01/12/2003 Colonoscopy INSJ FRANK VAD REQ 2 CATH 2 SITS W/O SUBQ PORT/ENROLLMENT SERVICES DEAN 09/18/06 LEFT INTERNAL JUGULAR PAST SURGICAL HISTORY OF 07/2008 OS for DM/"macular degeneration" PAST SURGICAL HISTORY OF kidney and pancreas transplant 2007 PAST SURGICAL HISTORY OF 1991 LEFT HAND AMPUTEE PAST SURGICAL HISTORY OF [address] CATH AV DIALYSIS SHUNT 09/08/06 PLACE CATH AV DIALYSIS SHUNT 10/08/06 PLACE CATH AV DIALYSIS SHUNT 12/05/[address] CATH AV DIALYSIS SHUNT 01/19/07 PLACE CATH AV DIALYSIS SHUNT 04/01/07 PLACE CATH AV DIALYSIS SHUNT 10/14/07 RMVL FRANK CVC W/O SUBQ PORT/ENROLLMENT SERVICES DEAN 02/06/07 Removal of left IJ tessio catheters TRANSCATH STENT INIT VESSEL,PERCUT 10/08/06 TRANSCATH STENT INIT VESSEL,PERCUT 01/19/07 ALLERGIES Doxazosin, Doxycycline, and Penicillins MEDICATIONS Current Outpatient Medications Medication Sig cefUROXime (CEFTIN) 500 mg tablet Take 1 tablet by mouth two times a day for 10 days. clotrimazole (LOTRIMIN) 1 % cream Apply to affected area two times a day for 7 days. mycophenolate Mofetil (CELLCEPT) 500 mg tablet take 1 tablet by mouth twice a day sildenafil (VIAGRA) 100 mg tablet Take 1 tablet by mouth as needed. tacrolimus IR (PROGRAF) 1 mg capsule Take (2) capsules by mouth twice daily No current facility-administered medications for this visit. FAMILY HISTORY Problem Relation Age of Onset Diabetes Mother Heart Mother Hypertension Father Diabetes Father Prostate Cancer Father age 60 Heart Paternal Grandfather Prostate Cancer Paternal Uncle Prostate Cancer Paternal Uncle Social History Tobacco Use Smoking status: Never Passive exposure: Never Smokeless tobacco: Never Vaping Use Vaping status: Never Used Substance Use Topics Alcohol use: No Drug use: Not Currently EXAM: BP 118/72 Pulse 79 Resp 16 SpO2 97% PHYSICAL EXAM: General Appearance: Well appearing, alert, in no acute distress, well-hydrated, well nourished.. Skin: Skin color, texture, turgor normal. + erythema migrans left forearm. Head: Normocephalic, no masses, lesions, tenderness or abnormalities. Eyes: Anicteric sclera. Pupils are equally round and reactive to light. Extraocular movements are intact. . Lungs: Lungs clear to auscultation. No wheezing, rhonchi, rales.. Heart: RRR without murmur, gallop, or rubs. No ectopy. Neurologic: Gait normal. Re ASSESSMENT/PLAN: 1. Erythema migrans - ICD9: 529.1, ICD10: K14.1 Discussed with patient that Ceftin is not a penicillin. Discussed with patient that there is a small chance of cross-reactivity, approximately 2%, between penicillins and cephalosporins. Upon chart review, it does appear the patient did have Ancef in the past. Patient is going to go ahead and start the Ceftin. He is aware to monitor for any signs and symptoms of an allergic reaction. He is aware that if he starts to break out in a rash, to stop the Ceftin, and he can use Benadryl if needed. He is aware that if he develops any respiratory symptoms, he should proceed to the emergency room. He is aware that if he develops any allergic reaction, he he should notify provider so that we can add cephalo (more content not included)... [facility] 08-23-2024 History of Present illness Narrative This is a 58 year old male who presents today with: Patient presents with: Recheck: Follow up UC- L arm rash HISTORY OF PRESENT ILLNESS: Homar Fallon is a 58 year old male. Patient presents with: Recheck: Follow up UC- L arm rash Pt presents today with complaint of rash on the left forearm. He did present to urgent care on 08/22/24. He was identified as having erythema migrans on the left forearm. He has a doxy and PCN allergy, so he was prescribed ceftin. He went to pick this medication from the pharmacy and per patient was advised by the pharmacy that this is a PCN medication and he should not take this. He has not started the medication. He has not any additional systemic symptoms of lymes disease. 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 Type II or unspecified type diabetes mellitus without mention of complication, not stated as uncontrolled Unspecified essential hypertension PAST SURGICAL HISTORY Procedure Laterality Date AMPUTATION FOREARM THROUGH RADIUS & ULNA 1991 left ARTERIOVENOUS ANASTOMOSIS OPEN DIRECT 07/08/06 RIGHT FOREARM AV FISTULA CREATION BALLN ANGIOPLASTY,PERC VENOUS 09/08/06 BALLN ANGIOPLASTY,PERC VENOUS 10/08/06 FISTULOGRAM BALLN ANGIOPLASTY,PERC VENOUS 12/05/06 RIGHT BALLN ANGIOPLASTY,PERC VENOUS 01/19/07 BALLN ANGIOPLASTY,PERC VENOUS 04/01/07 BALLN ANGIOPLASTY,PERC VENOUS 10/14/07 COLONOSCOPY FLX DX W/COLLJ SPEC WHEN PFRMD 01/12/2003 Colonoscopy INSJ FRANK VAD REQ 2 CATH 2 SITS W/O SUBQ PORT/ENROLLMENT SERVICES DEAN 09/18/06 LEFT INTERNAL JUGULAR PAST SURGICAL HISTORY OF 07/2008 OS for DM/"macular degeneration" PAST SURGICAL HISTORY OF kidney and pancreas transplant 2007 PAST SURGICAL HISTORY OF 1991 LEFT HAND AMPUTEE PAST SURGICAL HISTORY OF [address] PL[address] CATH AV DIALYSIS SHUNT 09/08/06 PLACE CATH AV DIALYSIS SHUNT 10/08/06 PLACE CATH AV DIALYSIS SHUNT 12/05/[address] CATH AV DIALYSIS SHUNT 01/19/07 PLACE CATH AV DIALYSIS SHUNT 04/01/07 PLACE CATH AV DIALYSIS SHUNT 10/14/07 RMVL FRANK CVC W/O SUBQ PORT/ENROLLMENT SERVICES DEAN 02/06/07 Removal of left IJ tessio catheters TRANSCATH STENT INIT VESSEL,PERCUT 10/08/06 TRANSCATH STENT INIT VESSEL,PERCUT 01/19/07 ALLERGIES Doxazosin, Doxycycline, and Penicillins MEDICATIONS Current Outpatient Medications Medication Sig cefUROXime (CEFTIN) 500 mg tablet Take 1 tablet by mouth two times a day for 10 days. clotrimazole (LOTRIMIN) 1 % cream Apply to affected area two times a day for 7 days. mycophenolate Mofetil (CELLCEPT) 500 mg tablet take 1 tablet by mouth twice a day sildenafil (VIAGRA) 100 mg tablet Take 1 tablet by mouth as needed. tacrolimus IR (PROGRAF) 1 mg capsule Take (2) capsules by mouth twice daily No current facility-administered medications for this visit. FAMILY HISTORY Problem Relation Age of Onset Diabetes Mother Heart Mother Hypertension Father Diabetes Father Prostate Cancer Father age 60 Heart Paternal Grandfather Prostate Cancer Paternal Uncle Prostate Cancer Paternal Uncle Social History Tobacco Use Smoking status: Never Passive exposure: Never Smokeless tobacco: Never Vaping Use Vaping status: Never Used Substance Use Topics Alcohol use: No Drug use: Not Currently EXAM: BP 118/72 Pulse 79 Resp 16 SpO2 97% PHYSICAL EXAM: General Appearance: Well appearing, alert, in no acute distress, well-hydrated, well nourished.. Skin: Skin color, texture, turgor normal. + erythema migrans left forearm. Head: Normocephalic, no masses, lesions, tenderness or abnormalities. Eyes: Anicteric sclera. Pupils are equally round and reactive to light. Extraocular movements are intact. . Lungs: Lungs clear to auscultation. No wheezing, rhonchi, rales.. Heart: RRR without murmur, gallop, or rubs. No ectopy. Neurologic: Gait normal. Re ASSESSMENT/PLAN: 1. Erythema migrans - ICD9: 529.1, ICD10: K14.1 Discussed with patient that Ceftin is not a penicillin. Discussed with patient that there is a small chance of cross-reactivity, approximately 2%, between penicillins and cephalosporins. Upon chart review, it does appear the patient did have Ancef in the past. Patient is going to go ahead and start the Ceftin. He is aware to monitor for any signs and symptoms of an allergic reaction. He is aware that if he starts to break out in a rash, to stop the Ceftin, and he can use Benadryl if needed. He is aware that if he develops any respiratory symptoms, he should proceed to the emergency room. He is aware that if he develops any allergic reaction, he he should notify provider so that we can add cephalosporins to his allergy list, as well as may need to consider changing antibiotic to azithromycin, but aware that this is less effective of a treatment than current regimen. Also discussed with patient that if he should develop any other symptoms associate with Lyme's disease, fever, joint pains, etc., he should notify provider. Discussed treatment plan and patient voices understanding. Patient's questions answered appropriately. Medications and potential side effects were discussed and patient voices understanding. Return to the office as scheduled or as needed for worsening/no improvement. Leticia Jasso APRN.GERIATRIC SOCIAL WORKER documented in this encounter [facility] 08-22-2024 Note HNO ID: [id number] Author: YOLY ZUNIGA PA Service: ? Author Type: Physician Industrial Chemistry Teacher Type: Progress Notes Filed: 08/22/2024 09:49 Note Text: This note was created using EcoStart[employer]. Subjective Homar Fallon is a 58 year old male. HPI 58-year-old male presents for rash to left arm. Of note, patient is a kidney/pancreas transplant patient. Patient states he noticed a rash on his left arm over the past few days. It is a bull's-eye looking rash. He denies knowing if the tick was attached, but was around a dog on Friday. He thought it might also be ringworm. He states it is not really itchy or painful. He has not put anything on the rash. No new lotions, detergents, body washes. No fevers, body aches or other complaints today. 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 Type II or unspecified type diabetes mellitus without mention of complication, not stated as uncontrolled Unspecified essential hypertension PAST SURGICAL HISTORY Procedure Laterality Date AMPUTATION FOREARM THROUGH RADIUS AND ULNA 1991 left ARTERIOVENOUS ANASTOMOSIS OPEN DIRECT 07/08/06 RIGHT FOREARM AV FISTULA CREATION BALLN ANGIOPLASTY,PERC VENOUS 09/08/06 BALLN ANGIOPLASTY,PERC VENOUS 10/08/06 FISTULOGRAM BALLN ANGIOPLASTY,PERC VENOUS 12/05/06 RIGHT BALLN ANGIOPLASTY,PERC VENOUS 01/19/07 BALLN ANGIOPLASTY,PERC VENOUS 04/01/07 BALLN ANGIOPLASTY,PERC VENOUS 10/14/07 COLONOSCOPY FLX DX W/COLLJ SPEC WHEN PFRMD 01/12/2003 Colonoscopy INSJ FRANK VAD REQ 2 CATH 2 SITS W/O SUBQ PORT/ENROLLMENT SERVICES DEAN 09/18/06 LEFT INTERNAL JUGULAR PAST SURGICAL HISTORY OF 07/2008 OS for DM/"macular degeneration" PAST SURGICAL HISTORY OF kidney and pancreas transplant 2007 PAST SURGICAL HISTORY OF 1991 LEFT HAND AMPUTEE PAST SURGICAL HISTORY OF [address] CATH AV DIALYSIS SHUNT 09/08/06 PLACE CATH AV DIALYSIS SHUNT 10/08/06 PLACE CATH AV DIALYSIS SHUNT 12/05/[address] CATH AV DIALYSIS SHUNT 01/19/07 PLACE CATH AV DIALYSIS SHUNT 04/01/07 PLACE CATH AV DIALYSIS SHUNT 10/14/07 RMVL FRANK CVC W/O SUBQ PORT/ENROLLMENT SERVICES DEAN 02/06/07 Removal of left IJ tessio catheters TRANSCATH STENT INIT VESSEL,PERCUT 10/08/06 TRANSCATH STENT INIT VESSEL,PERCUT 01/19/07 ALLERGIES Doxazosin, Doxycycline, and Penicillins MEDICATIONS mycophenolate Mofetil (CELLCEPT) 500 mg tablet take 1 tablet by mouth twice a day sildenafil (VIAGRA) 100 mg tablet Take 1 tablet by mouth as needed. tacrolimus IR (PROGRAF) 1 mg capsule Take (2) capsules by mouth twice daily cefUROXime (CEFTIN) 500 mg tablet Take 1 tablet by mouth two times a day for 10 days. clotrimazole (LOTRIMIN) 1 % cream Apply to affected area two times a day for 7 days. FAMILY HISTORY Problem Relation Age of Onset Diabetes Mother Heart Mother Hypertension Father Diabetes Father Prostate Cancer Father age 60 Heart Paternal Grandfather Prostate Cancer Paternal Uncle Prostate Cancer Paternal Uncle Social History Tobacco Use Smoking status: Never Passive exposure: Never Smokeless tobacco: Never Vaping Use Vaping status: Never Used Substance Use Topics Alcohol use: No Drug use: Not Currently Review of Systems Constitutional: Negative for chills and fever. HENT: Negative for congestion and sore throat. Respiratory: Negative for cough and shortness of breath. Gastrointestinal: Negative for diarrhea and vomiting. Skin: Positive for rash. Objective BP 133/80 Pulse 83 Temp 36.1 ?C (97 ?F) (Right Tympanic) Resp 16 Wt 86.9 kg (191 lb 9.3 oz) SpO2 98% BMI 27.89 kg/m? Physical Exam Vitals and nursing note reviewed. Constitutional: General: He is not in acute distress. Appearance: Normal appearance. He is not toxic-appearing. Eyes: Conjunctiva/sclera: Conjunctivae normal. Cardiovascular: Rate and Rhythm: Normal rate and regular rhythm. Pulmonary: Effort: Pulmonary effort is normal. Breath sounds: Normal breath sounds. Skin: General: Skin is warm and dry. Findings: Rash present. Comments: Bull's-eye rash noted to dorsal left forearm. Outer dark red ring with clearing and then an erythematous center noted. Some flaking of the skin. No lymphatic streaking. No fluctuance or abscess. Neurological: Mental Status: He is alert. Assessment and Plan ASSESSMENT/PLAN: 1. Rash - ICD9: 782.1, ICD10: R21 -Based on exam, suspect erythema migrans rash. Classic bull's-eye rash. Patient was outside and around a dog earlier this week. -Will cover for Lyme disease. Patient has allergy to doxycycline and penicillins. Rx for Ceftin x 10 days given. -Calculated creatinine clearance from labs of 06/2024 is 130. -Rx for clotrimazole given as well to cover for potential ringworm. Diagnosis and treatment plan were discussed and questions were answered to the pa (more content not included)... [facility] 08-22-2024 History of Present illness Narrative Images from the original note were not included. This note was created using Ardianter. Subjective Homar Fallon is a 58 year old male. HPI 58-year-old male presents for rash to left arm. Of note, patient is a kidney/pancreas transplant patient. Patient states he noticed a rash on his left arm over the past few days. It is a bull's-eye looking rash. He denies knowing if the tick was attached, but was around a dog on Friday. He thought it might also be ringworm. He states it is not really itchy or painful. He has not put anything on the rash. No new lotions, detergents, body washes. No fevers, body aches or other complaints today. 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 Type II or unspecified type diabetes mellitus without mention of complication, not stated as uncontrolled Unspecified essential hypertension PAST SURGICAL HISTORY Procedure Laterality Date AMPUTATION FOREARM THROUGH RADIUS & ULNA 1991 left ARTERIOVENOUS ANASTOMOSIS OPEN DIRECT 07/08/06 RIGHT FOREARM AV FISTULA CREATION BALLN ANGIOPLASTY,PERC VENOUS 09/08/06 BALLN ANGIOPLASTY,PERC VENOUS 10/08/06 FISTULOGRAM BALLN ANGIOPLASTY,PERC VENOUS 12/05/06 RIGHT BALLN ANGIOPLASTY,PERC VENOUS 01/19/07 BALLN ANGIOPLASTY,PERC VENOUS 04/01/07 BALLN ANGIOPLASTY,PERC VENOUS 10/14/07 COLONOSCOPY FLX DX W/COLLJ SPEC WHEN PFRMD 01/12/2003 Colonoscopy INSJ FRANK VAD REQ 2 CATH 2 SITS W/O SUBQ PORT/ENROLLMENT SERVICES DEAN 09/18/06 LEFT INTERNAL JUGULAR PAST SURGICAL HISTORY OF 07/2008 OS for DM/"macular degeneration" PAST SURGICAL HISTORY OF kidney and pancreas transplant 2007 PAST SURGICAL HISTORY OF 1991 LEFT HAND AMPUTEE PAST SURGICAL HISTORY OF [address] CATH AV DIALYSIS SHUNT 09/08/06 PLACE CATH AV DIALYSIS SHUNT 10/08/06 PLACE CATH AV DIALYSIS SHUNT 12/05/[address] CATH AV DIALYSIS SHUNT 01/19/07 PLACE CATH AV DIALYSIS SHUNT 04/01/07 PLACE CATH AV DIALYSIS SHUNT 10/14/07 RMVL FRANK CVC W/O SUBQ PORT/ENROLLMENT SERVICES DEAN 02/06/07 Removal of left IJ tessio catheters TRANSCATH STENT INIT VESSEL,PERCUT 10/08/06 TRANSCATH STENT INIT VESSEL,PERCUT 01/19/07 ALLERGIES Doxazosin, Doxycycline, and Penicillins MEDICATIONS mycophenolate Mofetil (CELLCEPT) 500 mg tablet take 1 tablet by mouth twice a day sildenafil (VIAGRA) 100 mg tablet Take 1 tablet by mouth as needed. tacrolimus IR (PROGRAF) 1 mg capsule Take (2) capsules by mouth twice daily cefUROXime (CEFTIN) 500 mg tablet Take 1 tablet by mouth two times a day for 10 days. clotrimazole (LOTRIMIN) 1 % cream Apply to affected area two times a day for 7 days. FAMILY HISTORY Problem Relation Age of Onset Diabetes Mother Heart Mother Hypertension Father Diabetes Father Prostate Cancer Father age 60 Heart Paternal Grandfather Prostate Cancer Paternal Uncle Prostate Cancer Paternal Uncle Social History Tobacco Use Smoking status: Never Passive exposure: Never Smokeless tobacco: Never Vaping Use Vaping status: Never Used Substance Use Topics Alcohol use: No Drug use: Not Currently Review of Systems Constitutional: Negative for chills and fever. HENT: Negative for congestion and sore throat. Respiratory: Negative for cough and shortness of breath. Gastrointestinal: Negative for diarrhea and vomiting. Skin: Positive for rash. Objective BP 133/80 Pulse 83 Temp 36.1 C (97 F) (Right Tympanic) Resp 16 Wt 86.9 kg (191 lb 9.3 oz) SpO2 98% BMI 27.89 kg/m Physical Exam Vitals and nursing note reviewed. Constitutional: General: He is not in acute distress. Appearance: Normal appearance. He is not toxic-appearing. Eyes: Conjunctiva/sclera: Conjunctivae normal. Cardiovascular: Rate and Rhythm: Normal rate and regular rhythm. Pulmonary: Effort: Pulmonary effort is normal. Breath sounds: Normal breath sounds. Skin: General: Skin is warm and dry. Findings: Rash present. Comments: Bull's-eye rash noted to dorsal left forearm. Outer dark red ring with clearing and then an erythematous center noted. Some flaking of the skin. No lymphatic streaking. No fluctuance or abscess. Neurological: Mental Status: He is alert. Assessment and Plan ASSESSMENT/PLAN: 1. Rash - ICD9: 782.1, ICD10: R21 -Based on exam, suspect erythema migrans rash. Classic bull's-eye rash. Patient was outside and around a dog earlier this week. -Will cover for Lyme disease. Patient has allergy to doxycycline and penicillins. Rx for Ceftin x 10 days given. -Calculated creatinine clearance from labs of 06/2024 is 130. -Rx for clotrimazole given as well to cover for potential ringworm. Diagnosis and treatment plan were discussed and questions were answered to the patient's satisfaction. Pt acknowledged understanding of concepts and follow up plan. Specific signs and symptoms that would indicate the need for higher level of care were discussed in detail warranting prompt ER evaluation. EMERALD Couch documented in this encounter [facility] 06-18-2024 Telephone encounter Note The following approved medication requests have been transmitted electronically. Requested Prescriptions Signed Prescriptions Disp Refills mycophenolate Mofetil (CELLCEPT) 500 mg tablet 180 tablet 3 Sig: take 1 tablet by mouth twice a day Authorizing Provider: MEHRAN URRUTIA APRN.CNP [facility] 06-18-2024 Miscellaneous Notes The following approved medication requests have been transmitted electronically. Requested Prescriptions Signed Prescriptions Disp Refills mycophenolate Mofetil (CELLCEPT) 500 mg tablet 180 tablet 3 Sig: take 1 tablet by mouth twice a day Authorizing Provider: MEHRAN URRUTIA APRN.CNP [facility] 01/28/2025 Patient's request for medication is as follows: Requested Prescriptions Pending Prescriptions Disp Refills mycophenolate Mofetil (CELLCEPT) 500 mg tablet [Pharmacy Med Name: MYCOPHENOLATE 500 MG TABLET] 180 tablet 3 Sig: take 1 tablet by mouth twice a day Please approve the above prescription(s) to electronically send to pharmacy. FLAVIO Bolivar documented in this encounter [facility] 06-15-2024 Telephone encounter Note [facility] 01/28/2025 Patient's request for medication is as follows: Requested Prescriptions Pending Prescriptions Disp Refills mycophenolate Mofetil (CELLCEPT) 500 mg tablet [Pharmacy Med Name: MYCOPHENOLATE 500 MG TABLET] 180 tablet 3 Sig: take 1 tablet by mouth twice a day Please approve the above prescription(s) to electronically send to pharmacy. FLAVIO Bolivar [facility] 01-29-2024 Instructions Mehran Urrutia APRN.CNP - 01/29/2024 9:09 AM EDT Decrease morning dose of Prograf (Tacrolimus) to 2mg, continue 2mg in the evening Continue 8a and 8pm schedule for meds Repeat labs in one month, ok to drink water before the bloodwork documented in this encounter [facility] 01-29-2024 History of Present illness Narrative Patient presents for transplant follow up Portions of this note were copied forward from the last encounter in this office to ensure historical accuracy. Changes were made to accurately reflect updated history, physical exam, and medical decision making. Homar Fallon is a 58 year old male who presents for follow up of a Simultaneous Kidney-Pancreas transplant. 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 Type II or unspecified type diabetes mellitus without mention of complication, not stated as uncontrolled Unspecified essential hypertension PAST SURGICAL HISTORY Procedure Laterality Date AMPUTATION FOREARM THROUGH RADIUS & ULNA 1991 left ARTERIOVENOUS ANASTOMOSIS OPEN DIRECT 07/08/06 RIGHT FOREARM AV FISTULA CREATION BALLN ANGIOPLASTY,PERC VENOUS 09/08/06 BALLN ANGIOPLASTY,PERC VENOUS 10/08/06 FISTULOGRAM BALLN ANGIOPLASTY,PERC VENOUS 12/05/06 RIGHT BALLN ANGIOPLASTY,PERC VENOUS 01/19/07 BALLN ANGIOPLASTY,PERC VENOUS 04/01/07 BALLN ANGIOPLASTY,PERC VENOUS 10/14/07 COLONOSCOPY FLX DX W/COLLJ SPEC WHEN PFRMD 01/12/2003 Colonoscopy INSJ FRANK VAD REQ 2 CATH 2 SITS W/O SUBQ PORT/ENROLLMENT SERVICES DEAN 09/18/06 LEFT INTERNAL JUGULAR PAST SURGICAL HISTORY OF 07/2008 OS for DM/"macular degeneration" PAST SURGICAL HISTORY OF kidney and pancreas transplant 2007 PAST SURGICAL HISTORY OF 1991 LEFT HAND AMPUTEE PAST SURGICAL HISTORY OF [address] CATH AV DIALYSIS SHUNT 09/08/06 PLACE CATH AV DIALYSIS SHUNT 10/08/06 PLACE CATH AV DIALYSIS SHUNT 12/05/[address] CATH AV DIALYSIS SHUNT 01/19/07 PLACE CATH AV DIALYSIS SHUNT 04/01/07 PLACE CATH AV DIALYSIS SHUNT 10/14/07 RMVL FRANK CVC W/O SUBQ PORT/ENROLLMENT SERVICES DEAN 02/06/07 Removal of left IJ tessio catheters TRANSCATH STENT INIT VESSEL,PERCUT 10/08/06 TRANSCATH STENT INIT VESSEL,PERCUT 01/19/07 2020 Hospitalizations locally for cellulitis and osteomyelitis in L foot, underwent 2nd toe Amputation Rx with Bactrim--azotemia reportedly noted, wound vac 02/04/23 Office visit with me 06/04/[address] Julien for gastric bezoar Presents today, now off all GI meds following the above, feeling much better. Appetite is good although he does experience fullness sooner than previously since his surgery. No nausea, vomiting, diarrhea or constipation. No urinary issues. No MARISOL. No cough, shortness of breath or chest pain or palpitations. No lightheadedness or dizziness. No headaches. No easy bruising or bleeding. BP - standardized method Pulse 1 BP #1: 131/66 Pulse #1: 82 beats/min 2 BP #2 : 116/69 Pulse #2 : 82 beats/min 3 BP #3 : 106/64 Pulse #3 : 78 beats/min Average Average BP: 118/66 Average Pulse: 80 beats/min Orthostatic vitals Supine Sitting Standing Standing BP : 91/51 Standing pulse : 88 BP cuff location BP cuff location: Right upper arm BP cuff size BP cuff size: regular adult Comments for BP values First BP (right) First BP (left) Last 3 Encounter BP Readings: Date: BP: 01/29/2024 118/66 12/19/2023 114/63 10/20/2023 122/72 Allograft function: eGFR-All Other Races (.) Date Value 07/26/2021 >60 02/26/2021 >60 09/20/2020 >60 08/28/2020 >60 04/10/2018 >60 Estimated Glomerular Filtration Rate (mL/min/1.73m ) Date Value 01/21/2024 100 11/05/2023 100 07/31/2023 100 06/10/2023 99 06/06/2023 85 Creatinine Date Value Ref Range Status 01/21/2024 0.84 0.73 - 1.22 mg/dL Final 11/05/2023 0.85 0.73 - 1.22 mg/dL Final 07/31/2023 0.86 0.73 - 1.22 mg/dL Final 06/10/2023 0.90 0.73 - 1.22 mg/dL Final 06/06/2023 1.02 0.73 - 1.22 mg/dL Final BUN (mg/dL) Date Value 01/21/2024 13 11/05/2023 15 07/31/2023 13 07/26/2021 15 02/26/2021 16 09/20/2020 19 Amylase (U/L) Date Value 01/21/2024 16 11/05/2023 17 07/31/2023 17 07/26/2021 22 02/26/2021 24 08/28/2020 25 Lipase (U/L) Date Value 01/21/2024 20 11/05/2023 17 07/31/2023 20 07/26/2021 24 02/26/2021 21 08/28/2020 19 No results found for: "PCRAT" Immunosuppression: Tacrolimus/FK506 (ng/mL) Date Value 01/21/2024 14.3 11/05/2023 7.6 07/31/2023 9.1 06/10/2023 12.2 07/26/2021 8.6 02/26/2021 9.8 08/28/2020 8.5 04/10/2018 9.2 No results found for: "EVERO" No results found for: "RAPA" Cyclosporine (ng/mL) Date Value 08/22/2008 <25 08/18/2008 <25 Hematology: WBC (k/uL) Date Value 01/21/2024 4.84 11/05/2023 5.84 07/31/2023 4.22 07/26/2021 5.10 02/26/2021 6.45 08/28/2020 5.89 Hemoglobin (g/dL) Date Value 01/21/2024 14.4 11/05/2023 15.2 07/31/2023 15.0 07/26/2021 15.8 02/26/2021 16.7 08/28/2020 16.4 Hematocrit (%) Date Value 01/21/2024 42.4 11/05/2023 44.4 07/31/2023 44.7 07/26/2021 46.5 02/26/2021 48.8 08/28/2020 50.6 Platelet Count (k/uL) Date Value 01/21/2024 112 11/05/2023 127 07/31/2023 115 07/26/2021 126 02/26/2021 120 08/28/2020 179 Calcium (mg/dL) Date Value 07/26/2021 9.7 02/26/2021 9.6 09/20/2020 9.3 Calcium, Total (mg/dL) Date Value 01/21/2024 9.4 11/05/2023 9.3 07/31/2023 9.2 Phosphorus (mg/dL) Date Value 06/10/2023 3.5 06/06/2023 2.3 06/05/2023 2.5 04/20/2009 2.6 04/29/2008 1.2 04/06/2008 2.2 PTH, Intact (pg/mL) Date Value 04/10/2018 78 12/09/2014 70 10/05/2014 103 Bone and mineral metabolism: Vitamin D 25 Hydroxy (ng/mL) Date Value 04/10/2018 11.9 12/09/2014 24.1 10/05/2014 7.2 Calcium (mg/dL) Date Value 07/26/2021 9.7 02/26/2021 9.6 09/20/2020 9.3 Calcium, Total (mg/dL) Date Value 01/21/2024 9.4 11/05/2023 9.3 07/31/2023 9.2 Magnesium (mg/dL) Date Value 06/06/2023 1.6 06/05/2023 1.6 04/20/2009 2.0 04/29/2008 1.6 04/06/2008 1.7 Phosphorus (mg/dL) Date Value 06/10/2023 3.5 06/06/2023 2.3 06/05/2023 2.5 04/20/2009 2.6 04/29/2008 1.2 04/06/2008 2.2 PTH, Intact (pg/mL) Date Value 04/10/2018 78 12/09/2014 70 10/05/2014 103 Electrolytes and Acid-base: Sodium (mmol/L) Date Value 01/21/2024 139 11/05/2023 140 07/31/2023 140 07/26/2021 138 02/26/2021 143 09/20/2020 141 Potassium (mmol/L) Date Value 01/21/2024 4.0 11/05/2023 3.8 07/31/2023 3.9 07/26/2021 3.7 02/26/2021 4.0 09/20/2020 3.8 Chloride (mmol/L) Date Value 01/21/2024 107 11/05/2023 108 07/31/2023 107 07/26/2021 106 02/26/2021 107 09/20/2020 105 CO2 (mmol/L) Date Value 01/21/2024 24 11/05/2023 25 07/31/2023 24 07/26/2021 23 02/26/2021 27 09/20/2020 26 Viral screening: BK Virus DNA Quant (copies/mL) Date Value 02/26/2021 Negative for BK virus DNA by PCR 08/28/2020 Negative for BK virus DNA by PCR 04/10/2018 Negative for BK virus DNA by PCR No results found for: "CMVIU" No results found for: "EBVDNA" PHYSICAL EXAM: BP 118/66 Pulse 80 Temp 36.8 C (98.2 F) (Oral) Ht 176.5 cm (5' 9.5") Wt 90.1 kg (198 lb 10.2 oz) BMI 28.91 kg/m General no acute distress, accompanied by his sisterMitzi EYES: sclerae anicteric NECK Supple, no lymphadenopathy or JVD HEART: RRR, no murmurs, clicks or gallops LUNGS CTA ABD: soft non tender sounds x 4 quads EXT no edema SKIN no rash or ulceration PSYCH alert and oriented x 3 IMPRESSION S/p SPK tx 04/2008, good renal allograft function; pancreas with detectable cpeptide, A1c 5.3; elevated fasting glucose UA negatice Immunosuppression TAC 3/2; level 14.3 MMF 500mg BID Pred free Blood Pressure controlled without medication rx; mild orthostatic decline and he is asymptomatic Anemia--Thrombocytopenia, appears stable Gastric bezoar s/p pyloroplasty with resolution of GI issues PLAN Reduce TAC to 2mg BID Repeat labs in one month to repeat TAC level and if stable, resume every 3 month labs REduce CHO intake to address elevated fasting blood sugars--discussed foods to cut back on pancakes, Mac/Cheese Avoid NSAIDs and iodinated contrast exposure Oral hydration as tolerated Change positions slowly Health Maintenance as per PCP whom he sees every 6 months RTC 1 year, sooner if needed Mehran Urrutia APRN.CNP I spent a total of 45 minutes on the date of the service which included preparing to see the patient, [id number] patient care, completing clinical documentation, obtaining and/or reviewing separately obtained history, performing a medically appropriate examination, counseling and educating the patient/family/caregiver, and ordering medications, tests, or procedures. documented in this encounter [facility] 12-29-2023 Miscellaneous Notes The following approved medication requests have been transmitted electronically. Requested Prescriptions Signed Prescriptions Disp Refills tacrolimus IR (PROGRAF) 1 mg capsule 450 capsule 4 Sig: TAKE 3 CAPSULES BY MOUTH EVERY DAY IN THE MORNING AND TAKE 2 CAPSULES IN THE EVENING Authorizing Provider: MEHRAN URRUTIA APRN.CNP Pharmacy calls in requesting the following refill(s): Requested Prescriptions Pending Prescriptions Disp Refills tacrolimus IR (PROGRAF) 1 mg capsule [Pharmacy Med Name: TACROLIMUS 1 MG CAPSULE (IR)] 450 capsule 4 Sig: TAKE 3 CAPSULES BY MOUTH EVERY DAY IN THE MORNING AND TAKE 2 CAPSULES IN THE EVENING documented in this encounter [facility] 12-19-2023 History of Present illness Narrative Name: Homar Fallon Assessment and Plan: 57 years old male with PMH of DM,CKD s/p pancreas and kidney transplant 2007 Presented with bezoar in stomach s/p diagnostic laparoscopy,EGD, pyloroplasty and partial gastrectomy with bezoar evacuation on 06/04/2023. Doing very well, asymptomatic. Tolerating regular diet GES showed mild gastroparesis which is a very good result. Plan: - Can stop Protonix - Follow up as needed Subjective/Interval Events: afebrile, pain well controlled, nausea or vomiting, passing flatus, having BF Objective: BP 114/63 Pulse 84 Ht 175.3 cm (5' 9.02") Wt 90 kg (198 lb 6.4 oz) BMI 29.28 kg/m Intake and Output: No intake/output data recorded. CBC BMP Physical exam: General: Awake, alert and oriented, NAD Neck: supple. Respiratory: Non-labored breathing Cardiac: HDS Abdomen: Soft, non-distended, non-tender Sandrine Julien MD December 19, 2023 1:02 PM documented in this encounter [facility] 12-10-2023 History of Present illness Narrative RADIOLOGY SERVICE PROGRESS NOTE SERVICE DATE: 12/10/2023 SERVICE TIME: 8:45 AM PATIENT IDENTITY VERIFICATION COMPLETED USING TWO (2) STANDARD IDENTIFIERS: Name and Date of confirmed by patient verbally FALL SCREENING: Has the patient had 2 falls in the last year or 1 fall with injury or currently using an Ambulatory Assistive Device (Walker, Cane, Wheelchair, Crutches, etc.)? No PATIENT GENDER DATA: .male ALLERGIES: Reviewed and unchanged MEDICATIONS REVIEWED: No PATIENT RELEVANT IMPLANT DATA REVIEWED: Not Applicable PATIENT PRESENTS WITH AN IMPLANTABLE OR ATTACHED MANAGER GENERATION: No CREATININE: Creatinine Date Value Ref Range Status 11/05/2023 0.85 0.73 - 1.22 mg/dL Final 07/31/2023 0.86 0.73 - 1.22 mg/dL Final 06/10/2023 0.90 0.73 - 1.22 mg/dL Final Estimated Glomerular Filtration Rate Date Value Ref Range Status 11/05/2023 100 >=60 mL/min/1.73m Final Comment: Estimated Glomerular Filtration Rate (eGFR) is calculated using the 2020 CKD-EPI creatinine equation. This equation utilizes serum creatinine, sex, and age as parameters. The creatinine assay has traceable calibration to isotope dilution-mass spectrometry. Refer to KDIGO guidelines for clinical interpretation. In patients with unstable renal function, e.g. those with acute kidney injury, the eGFR may not accurately reflect actual GFR. eGFR- Date Value Ref Range Status 07/26/2021 >60 Final P.O.C.T. RESULTS: N/A December 10, [address] PERFORMED: No IV SITE: Ambulatory: Not applicable POST EXAM PIV STATUS: Not applicable PROCEDURE TYPE: NM GET: 1.0 mCi Tc99m SULFUR COLLOID was administered orally via 4 ounces of Egg Beaters,2 pieces of toast, 1 ounce of jelly with 8 ounces of water orally ADMINISTRATION TIME: 840 PATIENT DISCHARGED TO: Ambulatory patient, left PA department area. A Diagnostic radioactive procedure has taken place, with no further precautions necessary other than routine body substance precautions. More information regarding radiation safety can be found using this link: [email or web address] SIGNATURE: RT Justyna(R) PATIENT NAME: Homar Fallon DATE: December 10, 2023 TIME: 8:45 AM PAGER/CONTACT #: documented in this encounter [facility] 08-14-2023 History of Present illness Narrative POPULATION HEALTH NAVIGATION OUTREACH Action/FYI Missing invalid [employer] message sent Colorectal Cancer Screening Never done Influenza Vaccine(1) due on 06/06/2023 Patient Identified by Name and : NO Outreach Outcome/Action Unable to reach patient: Phone number not valid / voicemail full [email or web address] message sent Did you use a PCP flex slot to schedule this appointment? N/A Reason for Outreach Care Gap or Scheduling/Wellness visits Payer: Payor: [employer] MEDICARE / Plan: [employer] / Product Type: HMO / Care Gap Reviewed:: Controlling Blood Pressure Flu Vaccine Reminder: Reminder note to check Health Maintenance for items below Health Maintenance items due: Colorectal Cancer Screening Never done Influenza Vaccine(1) due on 06/06/2023 Urine Albumin:Creatinine Ratio due on 07/26/2023 Navigation Signature: Rosa Medina MA August 14, 2023 10:19 AM documented in this encounter [facility] 08-12-2023 Miscellaneous Notes The following approved medication requests have been transmitted electronically. Requested Prescriptions Signed Prescriptions Disp Refills mycophenolate Mofetil (CELLCEPT) 500 mg tablet 180 tablet 3 Sig: Take 1 tablet by mouth two times a day. Authorizing Provider: MEHRAN URRUTIA APRN.KALIA Patient phones requesting refills as follows: Requested Prescriptions Pending Prescriptions Disp Refills mycophenolate Mofetil (CELLCEPT) 500 mg tablet 180 tablet 3 Sig: Take 1 tablet by mouth two times a day. Please review and advise. Jolly Mullins documented in this encounter [facility] 06-20-2023 History of Present illness Narrative GENERAL SURGERY PROGRESS NOTE Service Date: June 20, 2023 Assessment: 57 years old male with PMH of DM,CKD s/p pancreas and kidney transplant 2007 Presented with bezoar in stomach s/p diagnostic laparoscopy,EGD, pyloroplasty and partial gastrectomy with bezoar evacuation on 06/04/2023 Plan: - continue carafate for 2 more weeks - protonix for 3 months - gastric empyting study after 6 months Juve Flanagan MD General Surgery PGY-1 Physical Exam: BP 119/59 Pulse 78 Ht 5' 9" (1.75m) Wt 191 lb 9.6 oz (86.9kg) BMI 28.28 kg/(m^2). GENERAL: awake; alert and oriented; no acute distress LUNGS: non-labored breathing , no shortness of breath CARDIAC: warm and well perfused throughout ABDOMEN: soft, non tender, non distended, incisions dry and clean NEURO: no gross focal neurologic deficits EXT: no lower extremity edema Labs: CBC, BMP, MG, PHOS Recent Labs 06/10/23 0757 06/06/23 0533 06/05/23 1036 05/31/23 0812 04/24/23 0828 WBC -- 5.85 7.74 5.10 5.60 HB -- 13.1 13.6 14.8 14.6 HCT -- 39.8 40.0 45.4 43.1 PLT -- 98* 94* 113* 141* NA 140 141 141 141 138 K 3.8 4.1 3.8 3.9 3.9 CHLOR 104 107* 107* 106* 105 CO2 23 15* 24 24 23 BUN 11 12 15 11 21 CREAT 0.90 1.02 1.02 0.93 1.01 GLUC 110* 112* 160* 134* 138* CA 9.5 9.0 8.9 9.3 9.3 MG -- 1.6* 1.6* -- -- P 3.5 2.3* 2.5* -- -- Liver Function, Amylase, & Lipase Recent Labs 06/10/2375606/06/23 0533 06/05/23 1036 05/31/23 0812 04/24/23 0828 TPROT -- 5.8* 5.7* 5.8* 6.1* ALB 3.8* 3.7* 3.8* 3.9 3.9 ALT -- 10 10 14 31 AST -- 20 15 18 35 ALKPHOS -- 77 77 93 119* TBILI -- 1.1 1.2 0.5 0.4 Coags No results for input(s): "APTT", "PT", "INR" in the last 29731 hours. Cardiac Enzymes I saw and evaluated the patient. Discussed with the resident and agree with resident's findings and plan as documented in the resident's note. Sandrine Julien MD documented in this encounter [facility] 06-04-2023 History of Past i llness Narrative Problem Noted Date Diagnosed Date Resolved Date Bezoar in intestine 06/04/2023 10/20/19 24 Cellulitis of foot 10/17/2022 3 Local infection of skin and subcutaneous tissue 10/17/2022 10/17/2022 Neuropathy 10/17/2022 04/17/2023 Onychomycosis due to dermatophyte 10/17/2022 10/17/2022 Osteomyelitis 10/17/2022 10/17/2022 Osteomyelitis of left foot 10/17/2022 0 04/17/2023 Weakness 10/17/2022 04/17/2023 Acute gastric erosion 04/16/20222022 Dysphagia, unspecified 04/12/202210/17 Neck pain 09/10/2013 04/17/2023 Stiffness of joint, not else where classified, hand 10/26/2012 10/17/2022 H/O pancreas transplant 08/16/201208/07 Pain in limb 11/06/2009 04/17/2023 Leukocytopenia, unspecified 07/27/2008 04/17/2023 Pancreas transplant 04/05/2008 08/16/20 12 Diabetes with renal manifestations 10/08/2005 08/16/2012 Dupuytren's contracture of foot 04/17/2023 documented as of this encounter (statuses as of 12/11/2023) [facility] History of Past illness Narrative* Problem Noted Date Diagnosed Date Resolved Date Bezoar in intestine 06/04/2023 10/20/19 24 Cellulitis of foot 10/17/2022 3 Local infection of skin and subcutaneous tissue 10/17/2022 10/17/2022 Neuropathy 10/17/2022 04/17/2023 Onychomycosis due to dermatophyte 10/17/2022 10/17/2022 Osteomyelitis 10/17/2022 10/17/2022 Osteomyelitis of left foot 10/17/2022 0 04/17/2023 Weakness 10/17/2022 04/17/2023 Acute gastric erosion 04/16/20222022 Dysphagia, unspecified 04/12/202210/17 Neck pain 09/10/2013 04/17/2023 Stiffness of joint, not else where classified, hand 10/26/2012 10/17/2022 H/O pancreas transplant 08/16/201208/07 Pain in limb 11/06/2009 04/17/2023 Leukocytopenia, unspecified 07/27/2008 04/17/2023 Pancreas transplant 04/05/2008 08/16/20 12 Diabetes with renal manifestations 10/08/2005 08/16/2012 Dupuytren's contracture of foot 04/17/2023 documented as of this encounter (statuses as of 12/19/2023) [facility] History of Past illness Narrative* Problem Noted Date Diagnosed Date Resolved Date Bezoar in intestine 06/04/2023 10/20/19 24 Cellulitis of foot 10/17/2022 Local infection of skin and subcutaneous tissue 10/17/2022 10/17/2022 Neuropathy 10/17/2022 04/17/2023 Onychomycosis due to dermatophyte 10/17/2022 10/17/2022 Osteomyelitis 10/17/2022 10/17/2022 Osteomyelitis of left foot 10/17/2022 0 04/17/2023 Weakness 10/17/2022 04/17/2023 Acute gastric erosion 04/16/20222022 Dysphagia, unspecified 04/12/202210/17 Neck pain 09/10/2013 04/17/2023 Stiffness of joint, not else where classified, hand 10/26/2012 10/17/2022 H/O pancreas transplant 08/16/201208/07 Pain in limb 11/06/2009 04/17/2023 Leukocytopenia, unspecified 07/27/2008 04/17/2023 Pancreas transplant 04/05/2008 08/16/20 12 Diabetes with renal manifestations 10/08/2005 08/16/2012 Dupuytren's contracture of foot 04/17/2023 documented as of this encounter (statuses as of 12/30/2023) [facility] Instructions* Patient Instructions* Nora Varghese APRN.GERIATRIC SOCIAL WORKER - 06/03/2023 9:32 AM EDT PATIENT PREOPERATIVE INSTRUCTIONS Sandrine Julien, * has scheduled you for your procedure at this surgery center: [facility] Scheduling Office: [phone] --[address] [place] [address]. Please read below carefully for your personalized instructions. Dietary Restrictions: - No solid food after midnight. - You may have 12 ounces of clear liquids (water, clear juices such as apple juice or gatorade, carbonated beverages, clear tea, black coffee, jello) until 2 hours before scheduled arrival at facility. Medications: Unless instructed differently below, stay on all of your medications until your surgery. If you start any new medications after today's visit, please contact your surgeon. Pre-Surgery Med Instructions Medication Instructions tacrolimus IR (PROGRAF) 1 mg capsule Take the day of surgery with a small sip of water CREON 36,000-114,000- 180,000 unit delayed release capsule Take the day of surgery with a small sipof water mycophenolate Mofetil (CELLCEPT) 500 mg tablet Take the day of surgery with a small sip of water omeprazole (PRILOSEC) 20 mg capsule Take the day of surgery with a small sip of water If you start any new medications after today's visit, please contact the surgeon's office. Blood Thinning Medications: - Stop NSAIDS (Ibuprofen, Advil, Aleve, Motrin, Celebrex, Mobic, etc.) 7 days before surgery, as directed by your surgeon. - Stop Aspirin 7 days before surgery, as directed by your surgeon. - Stop Vitamin E, ALL multi-vitamins, herbals and dietary supplements 7 days before surgery. - You may take Tylenol (Acetaminophen) or any of your pain medications that do not contain aspirin or NSAIDS as needed. Important Reminders: - Candy, mints, and tobacco products are NOT permitted the morning of surgery. - Hearing aids, dentures and glasses may be worn the morning of surgery. - NO jewelry, body piercings, makeup, hairpins or contacts are to be worn the day of surgery. If you develop symptoms such as a fever, cold, or flu, or have other changes to your health within TWO DAYS of scheduled surgery or the morning of surgery, please contact the surgery center above. Personal Belongings: -Please have photo ID and insurance cards. -If you do not have a copy of advance directives on file with us, please bring a copy with you on the day of surgery. - Leave ALL valuables and money at home or with family members. For Outpatient Procedures: - YOU MUST HAVE A RESPONSIBLE PUBLIC ADDRESS SERVICER TAKE YOU HOME. A CLAIMS CLERK OR MANAGER CUSTOMER CANNOT BE MADE A RESPONSIBLE PUBLIC ADDRESS SERVICER. - We recommend that a responsible person stays with you overnight to take care of you. - You cannot stay in a hotel alone after outpatient surgery. You will not be permitted to have yoursurgery, if you do not have someone to take care of you. Arrival Time for Surgery: - To obtain your arrival time for surgery, call your physician's office the day before your surgery. - If your surgery is scheduled for Friday, call the Friday before. Your surgeon s production planner scheduler will tell you what time to call the office. - If you have not reached the departmental production planner scheduler by 5 P.M., call [phone] after 5 P.M. the day before your surgery. Please be aware that emergency situations arise, which may delay or change your surgical time. If this happens, we will notify you as soon as possible and regret any inconvenience. If you already have an Advance Directive, please fax a copy to [phone] or email to for it to be added to your chart. If you do not have an Advance Directive, you can find the appropriate form and more information at [email or web address]. We recommend that youcomplete the Advance Directive form found on the website and bring it with you the day of your surgery. It can be witnessed and scanned into your chart that day. Nora Varghese APRN.KALIA documented in this encounterMer[facility]08-29-[facility] History and physical note * Nora Varghese APRN.CNP - 06/03/2023 8:51 AM EDT HISTORY AND PHYSICAL EXAMINATION SERVICE DATE: 06/03/2023 SERVICE TIME: 9:16 AM PRIMARY CARE PHYSICIAN: Tung Aguilar MD REASON FOR VISIT: Homar Fallon is a 57 year old male who is scheduled for Procedure(s): LAPAROSCOPY DIAGNOSTIC (N/A) LAPAROSCOPIC PYLOROPLASTY (N/A) EGD (N/A) at the request of Dr. Sandrine Julien for consultation. My final recommendation willbe communicated back to the requesting physician by way of shared medical record or letter. Subjective The patient has the following: ACTIVE PROBLEM LIST Diabetes Mellitus Type I (Hcc) Essential Hypertension Pure Hypercholesterolemia Renal Failure Mechanical Complication of Other Vascular Device, Implant, and Graft Pancreas Replaced By Transplant (Hcc) Kidney Replaced By Transplant History of Cytomegalovirus Infection Dupuytren's Contracture of Hand Dupuytren's Disease Other Joint Derangement, Not Elsewhere Classified, Hand Prophylactic Immunotherapy Deafferentation Pain Chronic Pain Gastric Bezoar Gastroesophageal Reflux Disease Gastroparesis Polyneuropathy Due to Type 2 Diabetes Mellitus (Hcc) Immunosuppression (Hcc) History of Osteomyelitis COVID-19 Immunization Status Postponed - COVID-19 VACCINE (3 - Pfizer risk series) Postponed until 10/17/2023 10/17/2022 Postponed until 10/17/2023 by Niki Simpson (Declined at this time) 07/04/2021 Imm Admin: COVID-19 original vaccine, age 12+ yr, monovalent (PFIZER- BIONTECH - PURPLE TOP) 06/13/2021 Imm Admin: COVID-19 original vaccine, age 12+ yr, monovalent (PFIZER- BIONTECH - PURPLE TOP) CHIEF COMPLAINT: Pre-op evaluation HPI: 57 year old male here for pre-op evaluation. Symptoms started 2 years ago- has been monitored by [facility]. States area has been enlarging. +constant bloating and belching. Denies dysphagia, abdominal pain, constipation, and N/V.+GERD currently on PPI with some improvement. REVIEW OF SYSTEMS: General: Left hand amputation . No weight loss, malaise or fevers. Neurological: No history of TIA's, stroke, PROGRAM REP tumor, impaired sensorium, hemiplegia, paraplegia orquadraplegia. No neurological symptoms or problems. Respiratory: No history of current cough or dyspnea, or pneumonia in the past 6 weeks. No history of respiratory/pulmonary symptoms or problems. Cardiovascular: Positive for: hyperlipidemia (not on rx) and hypertension (resolved with kidney transplant) Negative for: angina, arrhythmia, atrial fibrillation, chest pain, CHF, DVT/PE and murmur/valvular heart disease. GI: See HPI. : H/o kidney transplant 2006. No history of dysuria, frequency or incontinence, stones or chronickidney disease. No difficulty urinating, nocturia > 1 time per night or hematuria. Renal failure: h/o kidney transplant. Endocrine: H/o pancreatic transplant-2006 Positive for: diabetes mellitus. Negative for: hyperthyroidism and hypothyroidism. Hematology: No history of bleeding or clotting disorder. Patient is not taking anti-coagulation or platelet medications. No history of hematological symptoms or problems. Oncology: No history of CA metastasis, chemo within 30 days, or radiotherapy within 90 days. No history of oncological symptoms or problems. Psych: No history of psychiatric symptoms or problems. Musculoskeletal: Negative for joint pain or swelling, back pain or muscle pain. Skin: Negative for lesions, rash and itching. 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 Type II or unspecified type diabetes mellitus without mention of complication, not stated as uncontrolled Unspecified essential hypertension PAST SURGICAL HISTORY Procedure Laterality Date AMPUTATION FOREARM THROUGH RADIUS & ULNA 1991 left ARTERIOVENOUS ANASTOMOSIS OPEN DIRECT 07/08/06 RIGHT FOREARM AV FISTULA CREATION BALLN ANGIOPLASTY,PERC VENOUS 09/08/06 BALLN ANGIOPLASTY,PERC VENOUS 10/08/06 FISTULOGRAM BALLN ANGIOPLASTY,PERC VENOUS 12/05/06 RIGHT BALLN ANGIOPLASTY,PERC VENOUS 01/19/07 BALLN ANGIOPLASTY,PERC VENOUS 04/01/07 BALLN ANGIOPLASTY,PERC VENOUS 10/14/07 COLONOSCOPY FLX DX W/COLLJ SPEC WHEN PFRMD 01/12/2003 Colonoscopy INSJ FRANK VAD REQ 2 CATH 2 SITS W/O SUBQ PORT/ENROLLMENT SERVICES DEAN 09/18/06 LEFT INTERNAL JUGULAR PAST SURGICAL HISTORY OF 07/2008 OS for DM/"macular degeneration" PAST SURGICAL HISTORY OF kidney and pancreas transplant 2007 PAST SURGICAL HISTORY OF 1991 LEFT HAND AMPUTEE PAST SURGICAL HISTORY OF [address] CATH AV DIALYSIS SHUNT 09/08/06 PLACE CATH AV DIALYSIS SHUNT 10/08/06 PLACE CATH AV DIALYSIS SHUNT 12/05/[address] CATH AV DIALYSIS SHUNT 01/19/07 PLACE CATH AV DIALYSIS SHUNT 04/01/07 PLACE CATH AV DIALYSIS SHUNT 10/14/07 RMVL FRANK CVC W/O SUBQ PORT/ENROLLMENT SERVICES DEAN 02/06/07 Removal of left IJ tessio catheters TRANSCATH STENT INIT VESSEL,PERCUT 10/08/06 TRANSCATH STENT INIT VESSEL,PERCUT 01/19/07 FAMILY HISTORY Problem Relation Age of Onset Diabetes Mother Heart Mother Hypertension Father Diabetes Father Prostate Cancer Father age 60 Heart Paternal Grandfather Prostate Cancer Paternal Uncle Prostate Cancer Paternal Uncle Social History Tobacco Use Smoking status: Never Smokeless tobacco: Never Vaping Use Vaping Use: Never used Substance Use Topics Alcohol use: No Drug use: Not Currently Prior to Admission medications as of 06/03/23 0916 Medication Sig Last Dose Taking tacrolimus IR (PROGRAF) 1 mg capsule TAKE 3 CAPSULES BY MOUTH EVERY DAY IN THE MORNING AND TAKE 2 CAPSULES IN THE EVENING Taking Yes CREON 36,000-114,000- 180,000 unit delayed release capsule TAKE 1 TABLET BY MOUTH 3 TIMES DAILY WITH MEALS AND/OR WITH SNACKS Taking Yes mycophenolate Mofetil (CELLCEPT) 500 mg tablet TAKE 1 TABLET BY MOUTH TWICE DAILY Taking Yes omeprazole (PRILOSEC) 20 mg capsule Take (2) capsules by mouth daily Taking Yes No medication comments found. ALLERGIES Allergen Reactions Doxazosin GI Upset Doxycycline Rash Penicillins rash Objective PHYSICAL EXAM: General: alert and oriented and healthy appearance. Pertinent negatives noted - not distressed. Skin: normal color, no rash or lesions. HEENT: pupils equal round and pupils reactive to light. Pertinent negatives noted - no carotid bruit. Cardiovascular: regular rate and rhythm, normal S1 and S2, no rub, murmurs, or gallop. Respiratory: normal breath sounds, no wheezes or crackles. Abdomen: soft. Pertinent negatives noted - not tender. Extremities: no deformity, no edema or tenderness, no joint swelling or clubbing. Left hand amputation . Neurological: normal cognition and motor skills. Gait normal. No weakness or sensory deficit. PAIN ASSESSMENT: VITALS: BP 112/70 Pulse 84 Temp (Src) 97.5 (Temporal) Ht 5' 9"[patient reported[ (1.75m) Wt 199 lb 3.2 oz (90.4kg) SpO2 99% BMI 29.40 kg/(m^2). Diagnostic tests reviewed for today's visit: Lab Value Units Date High Low HB 14.8 g/dL 05/31/2023 17.0 13.0 HCT 45.4 % 05/31/2023 51.0 39.0 WBC 5.10 k/uL 05/31/2023 11.00 3.70 PLT 113 k/uL 05/31/2023 400 150 NA 141 mmol/L 05/31/2023 144 136 K 3.9 mmol/L 05/31/2023 5.1 3.7 GLUC 134 mg/dL 05/31/2023 99 74 BUN 11 mg/dL 05/31/2023 24 9 CREAT 0.93 mg/dL 05/31/2023 1.22 0.73 PTSEC No results within date range. INR No results within date range. APTT No results within date range. ALT 14 U/L 05/31/2023 54 10 AST 18 U/L 05/31/2023 40 14 TBILI 0.5 mg/dL 05/31/2023 1.3 0.2 TSH No results within date range. Lab Value Units Date High Low HCGQT No results within date range. UHCG No results within date range. HCG, BODY* No results within date range. Lab Value Units Date High Low ABORHD No results within date range. ABSCREEN No results within date range. Hemoglobin A1C (%) Date Value 12/02/2022 5.0 07/26/2022 5.2 04/23/2022 5.0 01/15/2022 5.0 02/26/2021 5.0 08/28/2020 5.0 01/11/2019 5.0 04/10/2018 4.7 01/29/2016 4.9 No results found for this or any previous visit (from the past 8760 hour(s)). No results found for this or any previous visit (from the past 77170 hour(s)). Assessment Patient has the following medical conditions which may affect priscilla-operative course: Essential hypertension Assessment: Per patient resolved with kidney transplant. Not on rx. Last 3 Encounter BP Readings: Date: BP: 06/03/2023 112/70 05/30/2023 133/59 04/17/2023 116/60 PURE HYPERCHOLESTEROLEM Assessment: not on rx Gastroesophageal reflux disease Assessment: Stable on rx. KIDNEY TRANSPLANT STATUS Assessment: H/o kidney transplant 2006. On immunosuppressant medications. CMP: Glucose 134 05/31/2023 BUN 11 05/31/2023 Creatinine 0.93 05/31/2023 Sodium 141 05/31/2023 Potassium 3.9 05/31/2023 Chloride 106 05/31/2023 CO2 24 05/31/2023 Protein, Total 5.8 05/31/2023 Albumin 3.9 05/31/2023 Calcium 9.3 05/31/2023 Alkaline Phosphatase 93 05/31/2023 Bilirubin, Total 0.5 05/31/2023 AST 18 05/31/2023 ALT 14 05/31/2023 Diabetes mellitus type I (HCC) Assessment: H/o pancrease transplant 2006- not on rx. Will repeat A1C today. Patient denies neuropathy. Shepherd Activity Status Index: METS: Climb a flight of stairs or walk up a hill (5.50 METs) DASI Score: 5.5 Patient denies any chest pain or undue shortness of breath with the above physical activity. Clinical Frailty Scale: 4. Apparently vulnerable STOP-Bang Score: Patient over 50 years old Male patient Denies snoring loudly Denies feeling tired, fatigued, or sleepy during the daytime Has not been observed to stop breathing or choking/gasping during sleep Denies having high blood pressure BMI less than or equal to 35 kg/m^2 Does not have a large neck STOP-Bang Score: 2 [id number] Score: Age: <65 Sex: male CHF history: No Hypertension history: Yes Stroke/TIA/thromboembolism history: No Vascular disease history: No Diabetes history: Yes [id number] Score: 2 ANESTHESIA FINDINGS: Intubation History: No history of difficult intubation. No abnormal airway history Significant Anesthesia Considerations: potential postop nausea/vomiting Airway History: No history of difficult airway No abnormal airway history I - PHYSICAL EVALUATION AIRWAY Patient intubated: No. Tracheostomy tube not present Mallampati: II. TM distance: >3 FB. Neck ROM: full ROM without neurological symptoms. Mouth opening: adequate. Short neck: yes. Thick neck: yes Fabian present: no Upper lip bite test: unable to assess due to no lower teeth. Microretrognathia/Micronagthia/Recessed Chin: No DENTAL Dental findings: missing tooth/teeth. Additional exam findings: no CARDIOVASCULAR Carotid bruit not present. PULMONARY Normal pulmonary observations. ABDOMINAL Abdomen: soft. II - ANESTHESIA PLAN Anesthetic Plan: other Beta Jose David Monitoring Plan Post Procedure Analgesic Plan Prepared for Surgery: optimally prepared for surgery, pending [see comment]. DOS glucose labs 05/31/23 Needs EKG from surgeon Updated A1C CONSULTS: Patient does not require consults for optimization at this time Planned Anesthetic: other The Following Tests/Procedures Have Been Initiated: Orders Placed This Encounter HGB A1C Standing Status: Future Standing Expiration Date: 08/03/2023 Instructions Given to Patient: Instructions located in the after visit summary. Patient given verbal and written preop instructions and voices comprehension and compliance. SIGNATURE: Nora Varghese APRN.CNP PATIENT NAME: Homar Fallon DATE: June 03, 2023 TIME: 8:51 AM PAGER/CONTACT #: documented in this encounterMer[facility]08-28-2023 History of Present illness Narrative* Christy Salter RT(R) - 06/02/2023 2:00 PM EDT Radiology Service Progress Note PATIENT NAME: Homar Fallon DATE OF SERVICE: June 02, 2023 TIME: 2:05 PM PATIENT IDENTITY VERIFICATION COMPLETED USING TWO (2) IDENTIFIERS: Name and Date of confirmedby patient verbally. FALL SCREENING: Has the patient had 2 falls in the last year or 1 fall with injury or currently using an Ambulatory Assistive Device (Walker, Cane, Wheelchair, Crutches, etc.)? No PATIENT GENDER DATA: Male PATIENT RELEVANT IMPLANT DATA REVIEWED: Not Applicable RADIOLOGY DEPARTMENT: General X-ray: Exam(s) Completed: Chest X-Ray PERIPHERAL IV DATA: Not applicable SIGNED BY: RT Ibeth(R) June 02, 2023 2:05 PM documented in this encounterMercy [facility]08-28-2023 NoteHNO ID: [id number] Author: Yuli Henderson RT(R) Service: Radiology Author Type: Technologist Type: Progress Notes Filed: 06/02/2023 12:43 PM Note Text: Summary: xr [address] [place] [address] Radiology Service Progress Note PATIENT NAME: Homar Fallon DATE OF SERVICE: June 02, 2023 TIME: 12:43 PM PATIENT IDENTITY VERIFICATION COMPLETED USING TWO (2) IDENTIFIERS: Name and Date of confirmed by patient verbally. FALL SCREENING: Has the patient had 2 falls in the last year or 1 fall with injury or currently using an Ambulatory Assistive Device (Walker, Cane, Wheelchair, Crutches, etc.)? No PATIENT GENDER DATA: Male PATIENT RELEVANT IMPLANT DATA REVIEWED: Not Applicable RADIOLOGY DEPARTMENT: General X-ray: Exam(s) Completed: GI/ Procedure(s): Upper GI with barium contrast PERIPHERAL IV DATA: Not applicable SIGNED BY: RT Luke(R) June 02, 2023 12:43 PMProv[facility]08-28-[facility] History of Present illness Narrative* Yuli Henderson, RT(R) - 06/02/2023 8:45 AM EDTSummary: xr [address] [place] [address] Radiology Service Progress Note PATIENT NAME: Homar Fallon DATE OF SERVICE: June 02, 2023 TIME: 12:43 PM PATIENT IDENTITY VERIFICATION COMPLETED USING TWO (2) IDENTIFIERS: Name and Date of confirmedby patient verbally. FALL SCREENING: Has the patient had 2 falls in the last year or 1 fall with injury or currently using an Ambulatory Assistive Device (Walker, Cane, Wheelchair, Crutches, etc.)? No PATIENT GENDER DATA: Male PATIENT RELEVANT IMPLANT DATA REVIEWED: Not Applicable RADIOLOGY DEPARTMENT: General X-ray: Exam(s) Completed: GI/ Procedure(s): Upper GI with barium contrast PERIPHERAL IV DATA: Not applicable SIGNED BY: RT Luke(R) June 02, 2023 12:43 PM documented in this encounterMercy [facility]08-25-2023 History and physical note * Sandrine Julien MD - 05/30/2023 3:14 PM EDT HISTORY AND PHYSICAL EXAMINATION SERVICE DATE: 05/30/2023 SERVICE TIME: 2:00PM PRIMARY CARE PHYSICIAN: Tung Aguilar MD Subjective CHIEF COMPLAINT: sheri bezoar HPI: This is a 57 year old male with PMH of type I DM, CKD, who underwent a pancreas and Kidney transplant. 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 Has been managed by GI for a year with multiple attempts of removal without success. He has intermittent nausea and early satiety. He is on his anti rejection medication and PPI's. Has lost some weight recently. FUNCTIONAL STATUS: Independent 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 Type II or unspecified type diabetes mellitus without mention of complication, not stated as uncontrolled Unspecified essential hypertension PAST SURGICAL HISTORY Procedure Laterality Date AMPUTATION FOREARM THROUGH RADIUS & ULNA 1991 left ARTERIOVENOUS ANASTOMOSIS OPEN DIRECT 07/08/06 RIGHT FOREARM AV FISTULA CREATION BALLN ANGIOPLASTY,PERC VENOUS 09/08/06 BALLN ANGIOPLASTY,PERC VENOUS 10/08/06 FISTULOGRAM BALLN ANGIOPLASTY,PERC VENOUS 12/05/06 RIGHT BALLN ANGIOPLASTY,PERC VENOUS 01/19/07 BALLN ANGIOPLASTY,PERC VENOUS 04/01/07 BALLN ANGIOPLASTY,PERC VENOUS 10/14/07 COLONOSCOPY FLX DX W/COLLJ SPEC WHEN PFRMD 01/12/2003 Colonoscopy INSJ FRANK VAD REQ 2 CATH 2 SITS W/O SUBQ PORT/ENROLLMENT SERVICES DEAN 09/18/06 LEFT INTERNAL JUGULAR PAST SURGICAL HISTORY OF 07/2008 OS for DM/"macular degeneration" PAST SURGICAL HISTORY OF kidney and pancreas transplant 2007 PAST SURGICAL HISTORY OF 1991 LEFT HAND AMPUTEE PAST SURGICAL HISTORY OF [address] CATH AV DIALYSIS SHUNT 09/08/06 PLACE CATH AV DIALYSIS SHUNT 10/08/06 PLACE CATH AV DIALYSIS SHUNT 12/05/[address] CATH AV DIALYSIS SHUNT 01/19/07 PLACE CATH AV DIALYSIS SHUNT 04/01/07 PLACE CATH AV DIALYSIS SHUNT 10/14/07 RMVL FRANK CVC W/O SUBQ PORT/ENROLLMENT SERVICES DEAN 02/06/07 Removal of left IJ tessio catheters TRANSCATH STENT INIT VESSEL,PERCUT 10/08/06 TRANSCATH STENT INIT VESSEL,PERCUT 01/19/07 FAMILY HISTORY Problem Relation Age of Onset Diabetes Mother Heart Mother Hypertension Father Diabetes Father Prostate Cancer Father age 60 Heart Paternal Grandfather Prostate Cancer Paternal Uncle Prostate Cancer Paternal Uncle Social History Tobacco Use Smoking status: Never Smokeless tobacco: Never Substance Use Topics Alcohol use: No (Not in a hospital admission) ALLERGIES Allergen Reactions Doxazosin GI Upset Doxycycline Rash Penicillins rash COMPLETE REVIEW OF SYSTEMS: PAIN ASSESSMENT: Negative for pain, history of chronic pain, or current treatment for a chronic pain condition. GENERAL: No weight loss, malaise or fevers HEENT: Negative for frequent or significant headaches, No changes in hearing or vision, no nose bleeds or other nasal problems NECK: Negative for lumps, goiter, pain and significant neck swelling RESPIRATORY: Negative for cough, hemoptysis, wheezing, COPD, dyspnea or shortness of breath CARDIOVASCULAR: Negative for chest pain, leg swelling, hypertension, CHF or palpitations GI: See HPI : No history of dysuria, frequency or incontinence MUSCULOSKELETAL: Negative for joint pain or swelling, back pain or muscle pain SKIN: Negative for lesions, rash, and itching PSYCH: Negative for sleep disturbance, mood disorder and recent psychosocial stressors HEMATOLOGY/LYMPHOLOGY: Negative for prolonged bleeding, bruising easily or swollen nodes ENDOCRINE: Negative for cold or heat intolerance, polyuria, polydipsia and goiter NEURO: No history of headaches, syncope, paralysis, seizures or tremors Objective PHYSICAL EXAM: Physical Exam Performed: GENERAL: Alert, no distress, cooperative SKIN: Skin color, texture, turgor normal. No rashes or lesions. OROPHARYNX: Lips, mucosa, and tongue normal. Teeth and gums normal. Oropharynx normal. NECK: No jugulovenous distention, No carotid bruits, Carotid pulse normal contour, Supple LUNGS: Lungs clear to auscultation, Good diaphragmatic excursion CARDIAC: Normal S1 and S2; no rubs, murmurs, or gallops ABDOMEN: Abdomen soft, non-tender, BS normal, No masses or organomegaly and midline laparotomy EXTREMITIES: Extremities normal, no deformities, edema, clubbing or skin discoloration. Good capillary refill., No ulcers NEURO: Gait normal. Reflexes normal and symmetric. Sensation grossly intact, Cranial nerves II-XII intact PULSES: 2+ radial, 2+ carotid BP 133/59 Pulse 75 Ht 5' 9" (1.75m) Wt 199 lb 14.4 oz (90.7kg) BMI 29.51 kg/(m^2). DATA: Diagnostic tests reviewed for today's visit: Most recent labs and imaging results. Assessment/Plan This is a 57 year old male with PMH of type I DM, CKD, who underwent a pancreas and Kidney transplant. 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 Has been managed by GI for a year with multiple attempts of removal without success. UGI EGD Diagnostic Laparoscopy Bezoar remove Pyloroplasty SIGNATURE: Sandrine Julien MD PATIENT NAME: Homar Fallon DATE: May 30, 2023 TIME: 3:15 PM Medical Decision Making: Problems: Moderate: 2+ stable chronic illnesses Data: Assessment requiring an independent historian(s) Risk: High: Decision on elective major surgery w/ risk factors Medical Decision Making Level: 4 - Moderate documented in this encounterMercy [facility]08-25-2023 History of Present illness Narrative* Emiliana Loyd RN - 05/30/2023 3:04 PM EDT Confirmed surgery type, and date with patient, and sister. Provided pre-op instructions Instructed pt to complete pre-op testing, including lab work, EKG, CXR, and UGI Will be scheduled for in-person PACC Stop any over the counter vitamins/supplements and Aspirin or NSAIDs 7 days prior to procedure. Denies use of blood thinners, steroids, insulin, diuretics. During pre-op exam with Pre-anesthesia (PACC), you will find out what medication to take/hold the morning of your procedure. The business day before your procedure, you will receive a call from our production planner scheduler, with instructions on where, and when to arrive. If you have not received a call, please call [phone] before 4pm. No food or drink, after midnight the night prior to your procedure. Take a shower the evening before, and the morning of surgery using an anti- bacterial soap (ex: Dial). Dry off using a clean, dry towel. Do not apply deodorant, lotions, powders, or perfumes. Provided this RNs contact info. ADDENDUM: called pt to inform that Dr. Julien requires the UGI before surgery. Scheduled for Ricki Sandhu at 8:45am- Pt and sister agree to appt. documented in this encounterMercy [facility]08-02-2023 [facility] Medical Records Department [address] [place] [id number] History Physical Exam 05/07/23 0738 MR#: [id number] Acct: [id number] Name: HOMAR FALLON Rep #: [id number] : 1965 57 From: David Friend DO PCP: Dr. Tung Aguilar MD Status:[facility] Location: [place] [address] History and Physical Date of Admission: 05/07/23 f/u gastroparesis Details: HOMAR FALLON, is a 57 M who presents to the office today for 6 month f/u gastroparesis. He reports he is doing very well. He continues to take Creon pancreatic enzymes 1 cap with snack and 2 caps with meals. No longer taking cellulase or Coke. He had f/u with his transplant doctor last week, she would prefer that [facility] he be on lower dose of omeprazole, currently takes 40 mg daily. At his last EGD in 07/2022 almost all of the large phytobezoar was removed endoscopically.???Creon was started then. He hasn't needed metoclopramide. He denies early satiety, bloating, nausea, heartburn, abdominal pain. He is having a normal bowel movement without any signs of dumping or constipation.???No dysphagia. Clement established with this clinic 02.27.22 with referral from ENT for further evaluation of GERD and dysphagia with esophageal pain and emesis. This had been an ongoing issue for many months/years with worsening around 2020. [facility] pancreatic/kidney transplants in 2007 r/t DM type I with complication of renal disease requiring dialysis. Laryngoscopy performed 12.20.21 with severe edema of the interarytenoid space noted. Barium swallow 12.25.21 finding small sliding hernia with GERD; tablet of barium trapped at GE junction. EGD 04.05.22 noting tortuous esophagus; irregular Z-Line 38cm; non-bleeding erosive gastropathy; large amount of trichobezoar; retained food in duodenum. Gastric emptying study 05.09.22 timed at >200 minutes (12-56 normal). EGD 07.29.22 noting small hiatal hernia; large amount of food residue in stomach. No specimens collected. ROS Const Constitutional: No fatigue ENT ENT: No difficulty swallowing Gastro GI: No abdominal pain, belching, bloating, change in bowel habits, change in stool character, coffee ground emesis, constipation, cramping, diarrhea, heartburn, difficulty swallowing, feeling full early, excessive flatus, incontinent of stools, Vomiting blood/hematemesis, Blood in stool, loose stools, Black,tarry stools, nausea/dyspepsia, pain with swallowing, vomiting or other Musc Musculoskeletal: No joint pain Skin Skin: No yellowing of the eye or itchy eyes Psych Psychiatric: No anxiety and No depression Endo Endocrine: No fatigue Aller/Imm Allergy/Immunologic: No itchy eyes Skip/Lymp Hematologic/Lymphatic: No easy bleeding or easy bruising Exam Const General: cooperative, healthy appearing and comfortable Orientation: alert, awake and oriented x3 Quality Reporting Tobacco Screening ([facility] 138) Smoking Status: Never smoker Assessment and Plan Assessment and Plan (1) Gastroparesis due to DM: Status: Chronic Plan: Plan is repeat EGD to make sure the bezoar has not returned and the remnants have all been digested Continue omeprazole 40 mg daily for now; transplant physician would like him to be on lower dose eventually Continue Creon 1 cap with snacks and 2 caps with meals I have examined the patient and the H P has been reviewed. There are no clinical changes since date of exam. 05/07/23 [id number] Cosigner Signature (if applicable): CC: Dr. Tung Aguilar MD; David Friend, [facility] [facility]08-02-[address] [facility]07-13-2023 History of Present illness Narrative* Tung Aguilar MD - 04/17/2023 9:04 AM EDT Patient presents with: 6 Month Exam HPI: Patient presents today for office visit for follow up. No concerns today. Overall feeling good. Still seeing DrMeghan Barraza. Giovanna noted. Tolerating Creon. No gastro issues. No difficulty swallowing. No nausea or vomiting. No black or bloody stools. Hx of kidney/pancreas transplant 2006. Blood pressure and diabetes stable. Does not monitor BP at home. Saw Nephro in February. Sees Podiatry every 3 months. No issues. Feet are doing well. Saw urology. Bp is usually low at home. No chest pain. No shortness of breath. No edema. No bowel issues or skin issues. Due for a1c and lipid. No longer checks sugars. Due for labs next week. Psa done recently. MEDICATIONS: Current Outpatient Medications Medication Sig tacrolimus IR (PROGRAF) 1 mg capsule TAKE 3 CAPSULES BY MOUTH EVERY DAY IN THE MORNING AND TAKE 2 CAPSULES IN THE EVENING CREON 36,000-114,000- 180,000 unit delayed release capsule TAKE 1 TABLET BY MOUTH 3 TIMES DAILY WITH MEALS AND/OR WITH SNACKS mycophenolate Mofetil (CELLCEPT) 500 mg tablet TAKE 1 TABLET BY MOUTH TWICE DAILY omeprazole (PRILOSEC) 20 mg capsule Take (2) capsules by mouth daily No current facility-administered medications for this visit. 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 Type II or unspecified type diabetes mellitus without mention of complication, not stated as uncontrolled Unspecified essential hypertension PAST SURGICAL HISTORY Procedure Laterality Date AMPUTATION FOREARM THROUGH RADIUS & ULNA 1991 left ARTERIOVENOUS ANASTOMOSIS OPEN DIRECT 07/08/06 RIGHT FOREARM AV FISTULA CREATION BALLN ANGIOPLASTY,PERC VENOUS 09/08/06 BALLN ANGIOPLASTY,PERC VENOUS 10/08/06 FISTULOGRAM BALLN ANGIOPLASTY,PERC VENOUS 12/05/06 RIGHT BALLN ANGIOPLASTY,PERC VENOUS 01/19/07 BALLN ANGIOPLASTY,PERC VENOUS 04/01/07 BALLN ANGIOPLASTY,PERC VENOUS 10/14/07 COLONOSCOPY FLX DX W/COLLJ SPEC WHEN PFRMD 01/12/2003 Colonoscopy INSJ FRANK VAD REQ 2 CATH 2 SITS W/O SUBQ PORT/ENROLLMENT SERVICES DEAN 09/18/06 LEFT INTERNAL JUGULAR PAST SURGICAL HISTORY OF 07/2008 OS for DM/"macular degeneration" PAST SURGICAL HISTORY OF kidney and pancreas transplant 2007 PAST SURGICAL HISTORY OF 1991 LEFT HAND AMPUTEE PAST SURGICAL HISTORY OF [address] CATH AV DIALYSIS SHUNT 09/08/06 PLACE CATH AV DIALYSIS SHUNT 10/08/06 PLACE CATH AV DIALYSIS SHUNT 12/05/[address] CATH AV DIALYSIS SHUNT 01/19/07 PLACE CATH AV DIALYSIS SHUNT 04/01/07 PLACE CATH AV DIALYSIS SHUNT 10/14/07 RMVL FRANK CVC W/O SUBQ PORT/ENROLLMENT SERVICES DEAN 02/06/07 Removal of left IJ tessio catheters TRANSCATH STENT INIT VESSEL,PERCUT 10/08/06 TRANSCATH STENT INIT VESSEL,PERCUT 01/19/07 FAMILY HISTORY Problem Relation Age of Onset Diabetes Mother Heart Mother Hypertension Father Diabetes Father Prostate Cancer Father age 60 Heart Paternal Grandfather Prostate Cancer Paternal Uncle Prostate Cancer Paternal Uncle Social History Tobacco Use Smoking status: Never Smokeless tobacco: Never Substance Use Topics Alcohol use: No Reviewed current medications, allergies, past medical history, surgical history, family history andsocial history today. REVIEW OF SYSTEMS No chest pain or shortness of breath. SKIN: Negative for lesions, rash, and itching All other reviewed and negative other than HPI. HEALTH MAINTENANCE: Reviewed health maintenance issues today and recommended the following in detail. Discussed immunizations in detail. HEPATITIS B(1 of 3 - 3-dose series) Never done HEPATITIS A(1 of 2 - Risk 2-dose series) Never done SHINGRIX VACCINE(1 of 2) Never done COLORECTAL CANCER SCREENING - per gi. Will be discussing doing this year. + DTAP,TDAP,TD(2 - Tdap) due on 09/03/2015 PNEUMOCOCCAL(3 - PPSV23 or PCV20) due on 04/07/2019 Offered derm referral. VITALS: BP 116/60 Pulse 67 Ht 175.3 cm (5' 9") Wt 91 kg (200 lb 9.6 oz) SpO2 95% BMI 29.62 kg/m Last 4 Encounter Wt Readings: Date: Wt: 02/04/2023 93.6 kg (206 lb 6.4 oz) 12/10/2022 85.3 kg (188 lb) 10/17/2022 93 kg (205 lb) 09/09/2022 86.2 kg (190 lb) PHYSICAL EXAMINATION: General appearance: Well appearing, alert, in no acute distress, well-hydrated, well nourished. Skin: Skin color, texture, turgor normal, no suspicious rashes or lesions Head: Normocephalic, no masses, lesions, tenderness or abnormalities Lungs: Lungs clear to auscultation. No wheezing, rhonchi, rales Heart: RRR without murmur, gallop, or rubs. No ectopy Abdomen: Normal abdominal exam, Abdomen soft, non-tender. Bowel sounds normal. No masses, organomegaly Extremities: No deformities, edema, skin discoloration, clubbing or cyanosis. Good capillary refill. Stump on left arm is stable. Musculoskeletal: No joint swelling, deformity, or tenderness Peripheral pulses: Normal Neuro: Negative. ASSESSMENT/PLAN: 1. Pure hypercholesterolemia - ICD9: 272.0, ICD10: E78.00 (primary diagnosis) - follow labs. - LIPID PANEL BASIC 2. Essential hypertension - ICD9: 401.9, ICD10: I10 - Controlled - Continue current medications 3. 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 4. Gastric bezoar, sequela - ICD9: 908.5, ICD10: T18.2XXS - per gi. 5. Gastroparesis - ICD9: 536.3, ICD10: K31.84 - stable. 6. 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 7. Gastroesophageal reflux disease without esophagitis - ICD9: 530.81, ICD10: K21.9 - stable. 8. Kidney replaced by transplant - ICD9: V42.0, ICD10: Z94.0 - stable. 9. 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 10. History of osteomyelitis - ICD9: V13.59, ICD10: Z87.39 - sees podiatry 11. Immunosuppression (HCC) - ICD9: 279.9, ICD10: D84.9 - continue to monitor for malignancy and consider shots. Tung Aguilar MD documented in this encounter[facility] History of Present illness Narrative* Mehran Urrutia, AIRLINE CUSTOMER SERVICE AGENT.GERIATRIC SOCIAL WORKER - 02/04/2023 8:48 AM EDT Patient presents for post tx follow up care The HPI and Assessment was copied from my previous note dated 01/10/22 with changes as noted Homar Fallon is a 57 year old male who presents for follow up of a Simultaneous Kidney-Pancreas transplant. 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 Type II or unspecified type diabetes mellitus without mention of complication, not stated as uncontrolled Unspecified essential hypertension PAST SURGICAL HISTORY Procedure Laterality Date AMPUTATION FOREARM THROUGH RADIUS & ULNA 1991 left ARTERIOVENOUS ANASTOMOSIS OPEN DIRECT 07/08/06 RIGHT FOREARM AV FISTULA CREATION BALLN ANGIOPLASTY,PERC VENOUS 09/08/06 BALLN ANGIOPLASTY,PERC VENOUS 10/08/06 FISTULOGRAM BALLN ANGIOPLASTY,PERC VENOUS 12/05/06 RIGHT BALLN ANGIOPLASTY,PERC VENOUS 01/19/07 BALLN ANGIOPLASTY,PERC VENOUS 04/01/07 BALLN ANGIOPLASTY,PERC VENOUS 10/14/07 COLONOSCOPY FLX DX W/COLLJ SPEC WHEN PFRMD 01/12/2003 Colonoscopy INSJ FRANK VAD REQ 2 CATH 2 SITS W/O SUBQ PORT/ENROLLMENT SERVICES DEAN 09/18/06 LEFT INTERNAL JUGULAR PAST SURGICAL HISTORY OF 07/2008 OS for DM/"macular degeneration" PAST SURGICAL HISTORY OF kidney and pancreas transplant 2007 PAST SURGICAL HISTORY OF 1991 LEFT HAND AMPUTEE PAST SURGICAL HISTORY OF [address] CATH AV DIALYSIS SHUNT 09/08/06 PLACE CATH AV DIALYSIS SHUNT 10/08/06 PLACE CATH AV DIALYSIS SHUNT 12/05/[address] CATH AV DIALYSIS SHUNT 01/19/07 PLACE CATH AV DIALYSIS SHUNT 04/01/07 PLACE CATH AV DIALYSIS SHUNT 10/14/07 RMVL FRANK CVC W/O SUBQ PORT/ENROLLMENT SERVICES DEAN 02/06/07 Removal of left IJ tessio catheters TRANSCATH STENT INIT VESSEL,PERCUT 10/08/06 TRANSCATH STENT INIT VESSEL,PERCUT 01/19/07 2020Hospitalizations locally for cellulitis and osteomyelitis in L foot, underwent 2nd toe Amputation Rx with Bactrim--azotemia reportedly noted, wound vac Aug 2021 dysphagia Barium Swallow Study-hiatal hernia and GERD Omeprazole dose increased from 20mg daily to 40mg daily last visit with me on 01/10/22 Diagnosed with Bezor, s/p EGD x 2 He had significant issues with dysphagia and bloating Gastroparesis Continues Omeprazole and Creon with meals Next GI follow up later this month Overall, feeling pretty good. Swallowing is better, appetite is good. No recent nausea or vomiting,diarrhea or constipation.No heartburn or acid reflux. No urinary issues. No MARISOL. No cough, shortness of breath or chest pain or palpitations. No lightheadedness or dizziness. No headaches. Energy level is pretty good. No issue with easy bruising/bleeding. BP - standardized method Pulse 1 BP #1: 114/73 Pulse #1: 83 beats/min 2 BP #2 : 113/71 Pulse #2 : 80 beats/min 3 BP #3 : 108/67 Pulse #3 : 80 beats/min Average Average BP: 112/71 Average Pulse: 81 beats/min Orthostatic vitals Supine Sitting Standing Standing BP : 92/55 Standing pulse : 85 BP cuff location BP cuff location: Right upper arm BP cuff size BP cuff size: regular adult Comments for BP values First BP (right) First BP (left) Creatinine (mg/dL) Date Value 12/02/2022 0.92 07/26/2022 0.87 04/23/2022 0.88 07/26/2021 0.87 02/26/2021 1.00 09/20/2020 0.82 BUN (mg/dL) Date Value 12/02/2022 13 07/26/2022 9 04/23/2022 12 07/26/2021 15 02/26/2021 16 09/20/2020 19 eGFR- (no units) Date Value 07/26/2021 >60 02/26/2021 >60 09/20/2020 >60 eGFR-All Other Races (.) Date Value 07/26/2021 >60 02/26/2021 >60 09/20/2020 >60 Estimated Glomerular Filtration Rate (mL/min/1.73m ) Date Value 12/02/2022 96 07/26/2022 101 04/23/2022 100 CO2 (mmol/L) Date Value 12/02/2022 27 07/26/2022 24 04/23/2022 23 07/26/2021 23 02/26/2021 27 09/20/2020 26 Potassium (mmol/L) Date Value 12/02/2022 3.5 07/26/2022 4.3 04/23/2022 4.0 07/26/2021 3.7 02/26/2021 4.0 09/20/2020 3.8 Amylase (U/L) Date Value 12/02/2022 19 07/26/2022 17 04/23/2022 18 07/26/2021 22 02/26/2021 24 08/28/2020 25 Lipase (U/L) Date Value 12/02/2022 19 07/26/2022 16 04/23/2022 16 07/26/2021 24 02/26/2021 21 08/28/2020 19 Tacrolimus/FK506 (ng/mL) Date Value 12/02/2022 9.3 07/26/2022 7.5 04/23/2022 8.1 07/26/2021 8.6 02/26/2021 9.8 08/28/2020 8.5 Cyclosporine (ng/mL) Date Value 08/22/2008 <25 08/18/2008 <25 Hemoglobin (g/dL) Date Value 12/02/2022 14.7 07/26/2022 14.0 04/23/2022 15.3 07/26/2021 15.8 02/26/2021 16.7 08/28/2020 16.4 Platelet Count (k/uL) Date Value 12/02/2022 119 07/26/2022 107 04/23/2022 116 07/26/2021 126 02/26/2021 120 08/28/2020 179 WBC (k/uL) Date Value 12/02/2022 4.89 07/26/2022 4.43 04/23/2022 5.07 07/26/2021 5.10 02/26/2021 6.45 08/28/2020 5.89 Albumin (g/dL) Date Value 12/02/2022 4.0 07/26/2022 4.0 04/23/2022 4.1 07/26/2021 4.0 02/26/2021 4.2 08/28/2020 4.2 Phosphorus (mg/dL) Date Value 04/20/2009 2.6 04/29/2008 1.2 04/06/2008 2.2 PHYSICAL EXAM: BP 112/71 (BP Site: Right Arm, BP Position: Sitting, BP Cuff Size: Regular Adult) Pulse 81 Temp36.2 C (97.2 F) (Oral) Ht 175.3 cm (5' 9") Wt 93.6 kg (206 lb 6.4 oz) BMI 30.48 kg/m General no acute distress, accompanied by his sister EYES: sclerae anicteric NECK Supple, no lymphadenopathy or JVD HEART: RRR, no murmurs, clicks or gallops LUNGS CTA ABD: soft non tender sounds x 4 quads EXT no edema SKIN no rash or ulceration PSYCH alert and oriented x 3 IMPRESSION S/p SPK Tx stable allograft function of both organs Immunosuppression TAC 3/2; level 9.3 MMF 500mg BID Blood Pressure controlled without medication rx; mild orthostatic decline and he is asymptomatic Anemia--Thrombocytopenia GI issues--improving,continues PPI PLAN Labs every 3 months Increase physical exercise Discussed dietary modifications that may help to optimize lipid panel May need to consider low dose statin rx Continue to follow plts Health Maintenance as per PCP, whom it sees every 6 months GI follow up locally RTC 1 year, sooner if needed Mehran Urrutia, AIRLINE CUSTOMER SERVICE AGENT.GERIATRIC SOCIAL WORKER I spent a total of 35 minutes on the date of the service which included [id number] patient care, completing clinical documentation, obtaining and/or reviewing separately obtained history, performing a medically appropriate examination, counseling and educating the patient/family/caregiver, and ordering medications, tests, or procedures. documented in this encounterMer[facility]03-27-[facility]23 History of Present illness Narrative* Isabel Boogie MA - 12/30/2022 11:11 AM EDT POPULATION HEALTH NAVIGATION OUTREACH Action/FYI left message to call me back to schedule colonoscopy my chart message sent follow up 04/17/23 Patient Identified by Name and : NO Outreach Outcome/Action Unable to reach patient: Left message MyChart message sent Did you use a PCP flex slot to schedule this appointment? N/A Reason for Outreach Care Gap or Scheduling/Wellness visits Payer: Payor: [employer] MEDICARE / Plan: [employer] / Product Type: HMO / Care Gap Reviewed:: Controlling Blood Pressure Colorectal Cancer Screening Reminder: Reminder note to check Health Maintenance for items below Health Maintenance items due: HEPATITIS B(1 of 3 - 3-dose series) Never done HEPATITIS A(1 of 2 - Risk 2-dose series) Never done BP CONTROLLED (<130/80) Never done SHINGRIX VACCINE(1 of 2) Never done COLORECTAL CANCER SCREENING Never done DTAP,TDAP,TD(2 - Tdap) due on 09/03/2015 PNEUMOCOCCAL(3 - PPSV23 if available, else PCV20) due on 04/07/2019 DILATED RETINAL EXAM due on 01/25/2023 Navigation Signature: Isabel Boogie MA December 30, 2022 11:11 AM documented in this encounterMer[facility]03-07-2023 NoteHNO ID: [id number] Author: Isha Coleman MD Service: ? Author Type: Physician Type: Progress Notes Filed: 12/12/2022 10:16 AM Note Text: ESTABLISHED PATIENT OFFICE VISIT PATIENT INFO: Homar Fallon 57 year old HPI 12/10/2022 CC: psa Patient presents with family member and PSA has come back to previous range at 0.98 Dipstick urine negative Voiding issues are as before and he will to see me as needed moving ahead Past Urology Hx: 09/09/2022 Pt CC: psa VOIDING SYMPTOMS: Nocturia x1 and stream is good and voids every 3-4 hours approximately without gross hematuria or dysuria Dipstick urine negative Presents with his sister today and she says she helps him out and patient speaks slowly Father and 2 uncles with history of prostate cancer Is seeing me because of high PSA of 4.37 and only previous PSA 2018 when it was a little below 1 Has history of gastric bezoar and was taking things orally that could have irritated the bowels the sister said and even with the ultrasound he had of his prostate some irritation My prostate exam without any nodules Discussed significant rise in PSA but he would like to try Bactrim for 1 week and repeat PSA in 3 months to see if it trends down which could be very possible Follow-up 3 months for repeat prostate exam Labs/Radiology/Procedures: August 12, 2022-ultrasound prostate-volume 31.2 cc and possible slightly hypoechoic nodule measuring 1.3 cm July 26, 2022-PSA-4.37 April 10, 2018-PSA-0.84 Creatinine Date Value Ref Range Status 12/02/2022 0.92 0.73 - 1.22 mg/dL Final PSA (ng/mL) Date Value 12/02/2022 0.98 04/10/2018 0.84 PSA Screening (ng/mL) Date Value 07/26/2022 4.37 Color (no units) Date Value 01/10/2022 Yellow 07/13/2015 Yellow Clarity (no units) Date Value 01/10/2022 Clear 07/13/2015 Clear Glucose, Urine Date Value 01/10/2022 Negative 07/13/2015 Negative mg/dL Bilirubin, Urine (no units) Date Value 01/10/2022 Negative 07/13/2015 Negative Ketones, Urine (no units) Date Value 01/10/2022 Negative 07/13/2015 Negative Specific Hawkeye, Ur (no units) Date Value 01/10/2022 1.011 07/13/2015 1.005 Hemoglobin/Blood,Ur Date Value 01/10/2022 Negative 07/13/2015 Negative pH, Urine (no units) Date Value 01/10/2022 6.0 07/13/2015 6.0 Protein, Urine Date Value 01/10/2022 Negative 07/13/2015 Negative mg/dL Urobilinogen (no units) Date Value 01/10/2022 Negative 07/13/2015 Normal Nitrites (no units) Date Value 01/10/2022 Negative 07/13/2015 Negative Leukest (no units) Date Value 07/13/2015 Negative Leuk Esterase (no units) Date Value 01/10/2022 Negative Review of Systems Genitourinary: See HPI. All other systems reviewed and are negative. 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 Type II or unspecified type diabetes mellitus without mention of complication, not stated as uncontrolled Unspecified essential hypertension FAMILY HISTORY Problem Relation Age of Onset Diabetes Mother Heart Mother Hypertension Father Diabetes Father Prostate Cancer Father age 60 Heart Paternal Grandfather Prostate Cancer Paternal Uncle Prostate Cancer Paternal Uncle SOCIAL HISTORY Social History Tobacco Use Smoking status: Never Smokeless tobacco: Never Substance Use Topics Alcohol use: No MEDICATIONS: tacrolimus IR (PROGRAF) 1 mg capsule TAKE 3 CAPSULES BY MOUTH EVERY DAY IN THE MORNING AND TAKE 2 CAPSULES IN THE EVENING CREON 36,000-114,000- 180,000 unit delayed release capsule TAKE 1 TABLET BY MOUTH 3 TIMES DAILY WITH MEALS AND/OR WITH SNACKS mycophenolate Mofetil (CELLCEPT) 500 mg tablet TAKE 1 TABLET BY MOUTH TWICE DAILY omeprazole (PRILOSEC) 20 mg capsule Take (2) capsules by mouth daily Physical Exam HENT: Head: Normocephalic and atraumatic. Nose: Nose normal. Neck: Trachea: No tracheal deviation. Pulmonary: Effort: Pulmonary effort is normal. No respiratory distress. Musculoskeletal: General: No deformity. Skin: General: Skin is warm. Neurological: Mental Status: He is alert. Gait: Gait is intact. Psychiatric: Mood and Affect: Mood and affect normal. Cognition and Memory: Memory normal. Risk/Benefit Discussion: FOLLOW UP ([id number]; 3s): Return if symptoms worsen or fail to improve. ASSESSMENT/PLAN: 1. Elevated PSA - ICD9: 790.93, ICD10: R97.20 Isha Cloeman Please note: This note has been produced using speech recognition software and may contain errors related to that system including grammar, punctuation, spelling, gender and words and phrases that may be inappropriate.[facility]03-07-2023 Instructions* Patient Instructions* Isha Coleman MD - 12/10/2022 11:00 AM EST INSTRUCTIONS FROM DR. COLEMAN: PSA is back to previous values and normal so no further evaluation needed documented in this encounterMer[facility]03-07-2023 History of Present illness Narrative* Isha Coleman MD - 12/10/2022 10:52 AM EST ESTABLISHED PATIENT OFFICE VISIT PATIENT INFO: Homar Fallon 57 year old HPI 12/10/2022 CC: psa Patient presents with family member and PSA has come back to previous range at 0.98 Dipstick urine negative Voiding issues are as before and he will to see me as needed moving ahead Past Urology Hx: 09/09/2022 Pt CC: psa VOIDING SYMPTOMS: Nocturia x1 and stream is good and voids every 3-4 hours approximately without gross hematuria or dysuria Dipstick urine negative Presents with his sister today and she says she helps him out and patient speaks slowly Father and 2 uncles with history of prostate cancer Is seeing me because of high PSA of 4.37 and only previous PSA 2018 when it was a little below 1 Has history of gastric bezoar and was taking things orally that could have irritated the bowels thesister said and even with the ultrasound he had of his prostate some irritation My prostate exam without any nodules Discussed significant rise in PSA but he would like to try Bactrim for 1 week and repeat PSA in 3 months to see if it trends down which could be very possible Follow-up 3 months for repeat prostate exam Labs/Radiology/Procedures: August 12, 2022-ultrasound prostate-volume 31.2 cc and possible slightly hypoechoic nodule measuring 1.3 cm July 26, 2022-PSA-4.37 April 10, 2018-PSA-0.84 Creatinine Date Value Ref Range Status 12/02/2022 0.92 0.73 - 1.22 mg/dL Final PSA (ng/mL) Date Value 12/02/2022 0.98 04/10/2018 0.84 PSA Screening (ng/mL) Date Value 07/26/2022 4.37 Color (no units) Date Value 01/10/2022 Yellow 07/13/2015 Yellow Clarity (no units) Date Value 01/10/2022 Clear 07/13/2015 Clear Glucose, Urine Date Value 01/10/2022 Negative 07/13/2015 Negative mg/dL Bilirubin, Urine (no units) Date Value 01/10/2022 Negative 07/13/2015 Negative Ketones, Urine (no units) Date Value 01/10/2022 Negative 07/13/2015 Negative Specific Hawkeye, Ur (no units) Date Value 01/10/2022 1.011 07/13/2015 1.005 Hemoglobin/Blood,Ur Date Value 01/10/2022 Negative 07/13/2015 Negative pH, Urine (no units) Date Value 01/10/2022 6.0 07/13/2015 6.0 Protein, Urine Date Value 01/10/2022 Negative 07/13/2015 Negative mg/dL Urobilinogen (no units) Date Value 01/10/2022 Negative 07/13/2015 Normal Nitrites (no units) Date Value 01/10/2022 Negative 07/13/2015 Negative Leukest (no units) Date Value 07/13/2015 Negative Leuk Esterase (no units) Date Value 01/10/2022 Negative Review of Systems Genitourinary: See HPI. All other systems reviewed and are negative. 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 Type II or unspecified type diabetes mellitus without mention of complication, not stated as uncontrolled Unspecified essential hypertension FAMILY HISTORY Problem Relation Age of Onset Diabetes Mother Heart Mother Hypertension Father Diabetes Father Prostate Cancer Father age 60 Heart Paternal Grandfather Prostate Cancer Paternal Uncle Prostate Cancer Paternal Uncle SOCIAL HISTORY Social History Tobacco Use Smoking status: Never Smokeless tobacco: Never Substance Use Topics Alcohol use: No MEDICATIONS: tacrolimus IR (PROGRAF) 1 mg capsule TAKE 3 CAPSULES BY MOUTH EVERY DAY IN THE MORNING AND TAKE 2 CAPSULES IN THE EVENING CREON 36,000-114,000- 180,000 unit delayed release capsule TAKE 1 TABLET BY MOUTH 3 TIMES DAILY WITH MEALS AND/OR WITH SNACKS mycophenolate Mofetil (CELLCEPT) 500 mg tablet TAKE 1 TABLET BY MOUTH TWICE DAILY omeprazole (PRILOSEC) 20 mg capsule Take (2) capsules by mouth daily Physical Exam HENT: Head: Normocephalic and atraumatic. Nose: Nose normal. Neck: Trachea: No tracheal deviation. Pulmonary: Effort: Pulmonary effort is normal. No respiratory distress. Musculoskeletal: General: No deformity. Skin: General: Skin is warm. Neurological: Mental Status: He is alert. Gait: Gait is intact. Psychiatric: Mood and Affect: Mood and affect normal. Cognition and Memory: Memory normal. Risk/Benefit Discussion: FOLLOW UP (1s&1w; 3s): Return if symptoms worsen or fail to improve. ASSESSMENT/PLAN: 1. Elevated PSA - ICD9: 790.93, ICD10: R97.20 Isha Coleman Please note: This note has been produced using speech recognition software and may contain errors related to that system including grammar, punctuation, spelling, gender and words and phrases that may be inappropriate. documented in this encounter[facility] Miscellaneous Notes* Telephone Encounter - Mehran Urrutia APRN.CNP - 11/05/2022 2:54 PM EST The following approved medication requests have been transmitted electronically. Requested Prescriptions Signed Prescriptions Disp Refills tacrolimus IR (PROGRAF) 1 mg capsule 450 capsule 4 Sig: TAKE 3 CAPSULES BY MOUTH EVERY DAY IN THE MORNING AND TAKE 2 CAPSULES IN THE EVENING Authorizing Provider: MEHRAN URRUTIA APRN.CNP * Telephone Encounter - Corrine Ulloa - 11/01/2022 11:35 AM EST Patient phones requesting refills as follows: Requested Prescriptions Pending Prescriptions Disp Refills tacrolimus IR (PROGRAF) 1 mg capsule [Pharmacy Med Name: TACROLIMUS 1 MG CAPSULE (IR)] 450 capsule 4 Sig: TAKE 3 CAPSULES BY MOUTH EVERY DAY IN THE MORNING AND TAKE 2 CAPSULES IN THE EVENING Please review and advise. Corrine Ulloa documented in this encounterMer[facility]01-12-[facility] History of Past illness Narrative* Problem Noted Date Resolved Date Cellulitis of foot 10/17/2022 10/17/2022 Local infection of skin and subcutaneous tissue 10/17/2022 10/17/2022 Onychomycosis due to dermatophyte 10/17/2022 10/17/2022 Osteomyelitis 10/17/2022 10/17/2022 Acute gastric erosion 04/16/2022 10/17/2022 Dysphagia, unspecified 04/12/2022 3 Stiffness of joint, not elsewhere classified, [place] 10/26/2012 10/17/2022 H/O pancreas transplant 08/16/2012 08/30/20 20 Pancreas transplant 04/05/2008 08/16/2012 Diabetes with renal manifestations 10/08/2005 08/16/2012 documented as of this encounter (statuses as of 10/17/2022) [facility] of Past illness Narrative* Problem Noted Date Resolved Date Cellulitis of foot 10/17/2022 10/17/2022 Local infection of skin and subcutaneous tissue 10/17/2022 10/17/2022 Onychomycosis due to dermatophyte 10/17/2022 10/17/2022 Osteomyelitis 10/17/2022 10/17/2022 Acute gastric erosion 04/16/2022 10/17/2022 Dysphagia, unspecified 04/12/2022 3 Stiffness of joint, not elsewhere classified, [place] 10/26/2012 10/17/2022 H/O pancreas transplant 08/16/2012 08/30/20 20 Pancreas transplant 04/05/2008 08/16/2012 Diabetes with renal manifestations 10/08/2005 08/16/2012 documented as of this encounter (statuses as of 11/05/2022) [facility] of Past illness Narrative* Problem Noted Date Resolved Date Cellulitis of foot 10/17/2022 10/17/2022 Local infection of skin and subcutaneous tissue 10/17/2022 10/17/2022 Onychomycosis due to dermatophyte 10/17/2022 10/17/2022 Osteomyelitis 10/17/2022 10/17/2022 Acute gastric erosion 04/16/2022 10/17/2022 Dysphagia, unspecified 04/12/2022 3 Stiffness of joint, not elsewhere classified, anand nd 10/26/2012 10/17/2022 H/O pancreas transplant 08/16/2012 08/30/20 20 Pancreas transplant 04/05/2008 08/16/2012 Diabetes with renal manifestations 10/08/2005 08/16/2012 documented as of this encounter (statuses as of 12/12/2022) [facility] of Past illness Narrative* Problem Noted Date Resolved Date Cellulitis of foot 10/17/2022 10/17/2022 Local infection of skin and subcutaneous tissue 10/17/2022 10/17/2022 Onychomycosis due to dermatophyte 10/17/2022 10/17/2022 Osteomyelitis 10/17/2022 10/17/2022 Acute gastric erosion 04/16/2022 10/17/2022 Dysphagia, unspecified 04/12/2022 3 Stiffness of joint, not elsewhere classified, [place] 10/26/2012 10/17/2022 H/O pancreas transplant 08/16/2012 08/30/20 20 Pancreas transplant 04/05/2008 08/16/2012 Diabetes with renal manifestations 10/08/2005 08/16/2012 documented as of this encounter (statuses as of 12/30/2022) [facility] of Past illness Narrative* Problem Noted Date Resolved Date Cellulitis of foot 10/17/2022 10/17/2022 Local infection of skin and subcutaneous tissue 10/17/2022 10/17/2022 Onychomycosis due to dermatophyte 10/17/2022 10/17/2022 Osteomyelitis 10/17/2022 10/17/2022 Acute gastric erosion 04/16/2022 10/17/2022 Dysphagia, unspecified 04/12/2022 3 Stiffness of joint, not elsewhere classified, [place] 10/26/2012 10/17/2022 H/O pancreas transplant 08/16/2012 08/30/20 20 Pancreas transplant 04/05/2008 08/16/2012 Diabetes with renal manifestations 10/08/2005 08/16/2012 documented as of this encounter (statuses as of 02/05/2023) [facility] of [facility] illness Narrative* Problem Noted Date Resolved Date Cellulitis of foot 10/17/2022 10/17/2022 Local infection of skin and subcutaneous tissue 10/17/2022 10/17/2022 Onychomycosis due to dermatophyte 10/17/2022 10/17/2022 Osteomyelitis 10/17/2022 10/17/2022 Acute gastric erosion 04/16/2022 10/17/2022 Dysphagia, unspecified 04/12/2022 Stiffness of joint, not elsewhere classified, [place] nd 10/26/2012 10/17/2022 H/O pancreas transplant 08/16/2012 08/30/20 Pancreas transplant 04/05/2008 08/16/2012 Diabetes with renal manifestations 10/08/2005 08/16/2012 documented as of this encounter (statuses as of 02/07/2023) [facility] of [facility] illness Narrative* Problem Noted Date Diagnosed Date Resolved Date Cellulitis of foot 10/17/2022 Local infection of skin and subcutaneous tissue 10/17/2022 10/17/2022 Neuropathy 10/17/2022 04/17/2023 Onychomycosis due to dermatophyte 10/17/2022 10/17/2022 Osteomyelitis 10/17/2022 10/17/2022 Osteomyelitis of left foot 10/17/2022 0 04/17/2023 Weakness 10/17/2022 04/17/2023 Acute gastric erosion 04/16/20222022 Dysphagia, unspecified 04/12/202210/17 Neck pain 09/10/2013 04/17/2023 Stiffness of joint, not else where classified, hand 10/26/2012 10/17/2022 H/O pancreas transplant 08/16/201208/07 Pain in limb 11/06/2009 04/17/2023 Leukocytopenia, unspecified 07/27/2008 04/17/2023 Pancreas transplant 04/05/2008 08/16/20 12 Diabetes with renal manifestations 10/08/2005 08/16/2012 Dupuytren's contracture of foot 04/17/2023 documented as of this encounter (statuses as of 04/17/2023) [address]12-2023 History of Past illness Narrative* Problem Noted Date Diagnosed Date Resolved Date Cellulitis of foot 10/17/2022 Local infection of skin and subcutaneous tissue 10/17/2022 10/17/2022 Neuropathy 10/17/2022 04/17/2023 Onychomycosis due to dermatophyte 10/17/2022 10/17/2022 Osteomyelitis 10/17/2022 10/17/2022 Osteomyelitis of left foot 10/17/2022 0 04/17/2023 Weakness 10/17/2022 04/17/2023 Acute gastric erosion 04/16/20222022 Dysphagia, unspecified 04/12/202210/17 Neck pain 09/10/2013 04/17/2023 Stiffness of joint, not else where classified, hand 10/26/2012 10/17/2022 H/O pancreas transplant 08/16/201208/07 Pain in limb 11/06/2009 04/17/2023 Leukocytopenia, unspecified 07/27/2008 04/17/2023 Pancreas transplant 04/05/2008 08/16/20 12 Diabetes with renal manifestations 10/08/2005 08/16/2012 Dupuytren's contracture of foot 04/17/2023 documented as of this encounter (statuses as of 05/30/2023) [facility] of [facility] Narrative* Problem Noted Date Diagnosed Date Resolved Date Cellulitis of foot 10/17/2022 Local infection of skin and subcutaneous tissue 10/17/2022 10/17/2022 Neuropathy 10/17/2022 04/17/2023 Onychomycosis due to dermatophyte 10/17/2022 10/17/2022 Osteomyelitis 10/17/2022 10/17/2022 Osteomyelitis of left foot 10/17/2022 0 04/17/2023 Weakness 10/17/2022 04/17/2023 Acute gastric erosion 04/16/20222022 Dysphagia, unspecified 04/12/202210/17 Neck pain 09/10/2013 04/17/2023 Stiffness of joint, not else where classified, hand 10/26/2012 10/17/2022 H/O pancreas transplant 08/16/201208/07 Pain in limb 11/06/2009 04/17/2023 Leukocytopenia, unspecified 07/27/2008 04/17/2023 Pancreas transplant 04/05/2008 08/16/20 12 Diabetes with renal manifestations 10/08/2005 08/16/2012 Dupuytren's contracture of foot 04/17/2023 documented as of this encounter (statuses as of 05/30/2023) [facility] of [facility] illness Narrative* Problem Noted Date Diagnosed Date Resolved Date Cellulitis of foot 10/17/2022 Local infection of skin and subcutaneous tissue 10/17/2022 10/17/2022 Neuropathy 10/17/2022 04/17/2023 Onychomycosis due to dermatophyte 10/17/2022 10/17/2022 Osteomyelitis 10/17/2022 10/17/2022 Osteomyelitis of left foot 10/17/2022 0 04/17/2023 Weakness 10/17/2022 04/17/2023 Acute gastric erosion 04/16/20222022 Dysphagia, unspecified 04/12/202210/17 Neck pain 09/10/2013 04/17/2023 Stiffness of joint, not else where classified, hand 10/26/2012 10/17/2022 H/O pancreas transplant 08/16/201208/07 Pain in limb 11/06/2009 04/17/2023 Leukocytopenia, unspecified 07/27/2008 04/17/2023 Pancreas transplant 04/05/2008 08/16/20 12 Diabetes with renal manifestations 10/08/2005 08/16/2012 Dupuytren's contracture of foot 04/17/2023 documented as of this encounter (statuses as of 05/30/2023) [facility] of [facility] illness Narrative* Problem Noted Date Diagnosed Date Resolved Date Cellulitis of foot 10/17/2022 Local infection of skin and subcutaneous tissue 10/17/2022 10/17/2022 Neuropathy 10/17/2022 04/17/2023 Onychomycosis due to dermatophyte 10/17/2022 10/17/2022 Osteomyelitis 10/17/2022 10/17/2022 Osteomyelitis of left foot 10/17/2022 0 04/17/2023 Weakness 10/17/2022 04/17/2023 Acute gastric erosion 04/16/20222022 Dysphagia, unspecified 04/12/202210/17 Neck pain 09/10/2013 04/17/2023 Stiffness of joint, not else where classified, hand 10/26/2012 10/17/2022 H/O pancreas transplant 08/16/201208/07 Pain in limb 11/06/2009 04/17/2023 Leukocytopenia, unspecified 07/27/2008 04/17/2023 Pancreas transplant 04/05/2008 08/16/20 Diabetes with renal manifestations 10/08/2005 08/16/2012 Dupuytren's contracture of foot 04/17/2023 documented as of this encounter (statuses as of 06/03/2023) [facility] Narrative* Problem Noted Date Diagnosed Date Resolved Date Cellulitis of foot 10/17/2022 Local infection of skin and subcutaneous tissue 10/17/2022 10/17/2022 Neuropathy 10/17/2022 04/17/2023 Onychomycosis due to dermatophyte 10/17/2022 10/17/2022 Osteomyelitis 10/17/2022 10/17/2022 Osteomyelitis of left foot 10/17/2022 0 04/17/2023 Weakness 10/17/2022 04/17/2023 Acute gastric erosion 04/16/20222022 Dysphagia, unspecified 04/12/202210/17 Neck pain 09/10/2013 04/17/2023 Stiffness of joint, not else where classified, hand 10/26/2012 10/17/2022 H/O pancreas transplant 08/16/201208/07 Pain in limb 11/06/2009 04/17/2023 Leukocytopenia, unspecified 07/27/2008 04/17/2023 Pancreas transplant 04/05/2008 08/16/20 12 Diabetes with renal manifestations 10/08/2005 08/16/2012 Dupuytren's contracture of foot 04/17/2023 documented as of this encounter (statuses as of 06/03/2023) [facility] of [facility] illness Narrative* Problem Noted Date Diagnosed Date Resolved Date Cellulitis of foot 10/17/2022 Local infection of skin and subcutaneous tissue 10/17/2022 10/17/2022 Neuropathy 10/17/2022 04/17/2023 Onychomycosis due to dermatophyte 10/17/2022 10/17/2022 Osteomyelitis 10/17/2022 10/17/2022 Osteomyelitis of left foot 10/17/2022 0 04/17/2023 Weakness 10/17/2022 04/17/2023 Acute gastric erosion 04/16/20222022 Dysphagia, unspecified 04/12/202210/17 Neck pain 09/10/2013 04/17/2023 Stiffness of joint, not else where classified, hand 10/26/2012 10/17/2022 H/O pancreas transplant 08/16/201208/07 Pain in limb 11/06/2009 04/17/2023 Leukocytopenia, unspecified 07/27/2008 04/17/2023 Pancreas transplant 04/05/2008 08/16/20 12 Diabetes with renal manifestations 10/08/2005 08/16/2012 Dupuytren's contracture of foot 04/17/2023 documented as of this encounter (statuses as of 06/20/2023) [facility] of [facility] Narrative* Problem Noted Date Diagnosed Date Resolved Date Cellulitis of foot 10/17/2022 3 Local infection of skin and subcutaneous tissue 10/17/2022 10/17/2022 Neuropathy 10/17/2022 04/17/2023 Onychomycosis due to dermatophyte 10/17/2022 10/17/2022 Osteomyelitis 10/17/2022 10/17/2022 Osteomyelitis of left foot 10/17/2022 0 04/17/2023 Weakness 10/17/2022 04/17/2023 Acute gastric erosion 04/16/20222022 Dysphagia, unspecified 04/12/202210/17 Neck pain 09/10/2013 04/17/2023 Stiffness of joint, not else where classified, hand 10/26/2012 10/17/2022 H/O pancreas transplant 08/16/201208/07 Pain in limb 11/06/2009 04/17/2023 Leukocytopenia, unspecified 07/27/2008 04/17/2023 Pancreas transplant 04/05/2008 08/16/20 Diabetes with renal manifestations 10/08/2005 08/16/2012 Dupuytren's contracture of foot 04/17/2023 documented as of this encounter (statuses as of 08/10/2023) [facility] Narrative* Problem Noted Date Diagnosed Date Resolved Date Cellulitis of foot 10/17/2022 3 Local infection of skin and subcutaneous tissue 10/17/2022 10/17/2022 Neuropathy 10/17/2022 04/17/2023 Onychomycosis due to dermatophyte 10/17/2022 10/17/2022 Osteomyelitis 10/17/2022 10/17/2022 Osteomyelitis of left foot 10/17/2022 0 04/17/2023 Weakness 10/17/2022 04/17/2023 Acute gastric erosion 04/16/20222022 Dysphagia, unspecified 04/12/202210/17 Neck pain 09/10/2013 04/17/2023 Stiffness of joint, not else where classified, hand 10/26/2012 10/17/2022 H/O pancreas transplant 08/16/201208/07 Pain in limb 11/06/2009 04/17/2023 Leukocytopenia, unspecified 07/27/2008 04/17/2023 Pancreas transplant 04/05/2008 08/16/20 Diabetes with renal manifestations 10/08/2005 08/16/2012 Dupuytren's contracture of foot 04/17/2023 documented as of this encounter (statuses as of 08/13/2023) [facility] of [facility] Narrative* Problem Noted Date Diagnosed Date Resolved Date Cellulitis of foot 10/17/2022 Local infection of skin and subcutaneous tissue 10/17/2022 10/17/2022 Neuropathy 10/17/2022 04/17/2023 Onychomycosis due to dermatophyte 10/17/2022 10/17/2022 Osteomyelitis 10/17/2022 10/17/2022 Osteomyelitis of left foot 10/17/2022 0 04/17/2023 Weakness 10/17/2022 04/17/2023 Acute gastric erosion 04/16/20222022 Dysphagia, unspecified 04/12/202210/17 Neck pain 09/10/2013 04/17/2023 Stiffness of joint, not else where classified, hand 10/26/2012 10/17/2022 H/O pancreas transplant 08/16/201208/07 Pain in limb 11/06/2009 04/17/2023 Leukocytopenia, unspecified 07/27/2008 04/17/2023 Pancreas transplant 04/05/2008 08/16/20 12 Diabetes with renal manifestations 10/08/2005 08/16/2012 Dupuytren's contracture of foot 04/17/2023 documented as of this encounter (statuses as of 08/15/2023) [facility] of [facility] illness Narrative* Problem Noted Date Diagnosed Date Resolved Date Cellulitis of foot 10/17/2022 Local infection of skin and subcutaneous tissue 10/17/2022 10/17/2022 Neuropathy 10/17/2022 04/17/2023 Onychomycosis due to dermatophyte 10/17/2022 10/17/2022 Osteomyelitis 10/17/2022 10/17/2022 Osteomyelitis of left foot 10/17/2022 0 04/17/2023 Weakness 10/17/2022 04/17/2023 Acute gastric erosion 04/16/20222022 Dysphagia, unspecified 04/12/202210/17 Neck pain 09/10/2013 04/17/2023 Stiffness of joint, not else where classified, hand 10/26/2012 10/17/2022 H/O pancreas transplant 08/16/201208/07 Pain in limb 11/06/2009 04/17/2023 Leukocytopenia, unspecified 07/27/2008 04/17/2023 Pancreas transplant 04/05/2008 08/16/20 12 Diabetes with renal manifestations 10/08/2005 08/16/2012 Dupuytren's contracture of foot 04/17/2023 documented as of this encounter (statuses as of 09/11/2023) [facility] History of Present illness Narrative* Tung Aguilar MD - 10/17/2022 9:37 AM EST Patient presents with: 6 Month Exam HPI: Patient presents today for office visit for follow up. No concerns today. Overall feeling good. Still seeing Dr. Friend. Giovanna noted. Tolerating Creon. No gastro issues. No difficulty swallowing. Hx of kidney/pancreas transplant 2006. Blood pressure and diabetes stable. Does not monitor BP at home. Sees jaleesa again in February. Saw Podiatry last week. No issues. Saw urology. Bp is usually low at home. No chest pain. No shortness of breath. No edema. Feet are doing well. Sees Podiatry every three months No bowel issues or skin issues. Component Latest Ref Rng & Units 07/26/2022 09/09/2022 Protein, Total 6.3 - 8.0 g/dL 5.8 (L) Albumin 3.9 - 4.9 g/dL 4.0 Calcium 8.5 - 10.2 mg/dL 9.1 Bilirubin, Total 0.2 - 1.3 mg/dL 0.4 Alkaline Phosphatase 38 - 113 U/L 107 AST 14 - 40 U/L 28 ALT 10 - 54 U/L 36 Glucose 74 - 99 mg/dL 106 (H) BUN 9 - 24 mg/dL 9 Creatinine 0.73 - 1.22 mg/dL 0.87 Sodium 136 - 144 mmol/L 140 Potassium 3.7 - 5.1 mmol/L 4.3 Chloride 97 - 105 mmol/L 108 (H) CO2 22 - 30 mmol/L 24 Anion Gap 9 - 18 mmol/L 8 (L) eGFR >=60 mL/min/1.73m 101 GLUCOSE UA (POCT) Negative mg/dL Negative BILIRUBIN UA (POCT) Negative Negative KETONE UA (POCT) Negative mg/dL Negative SPECIFIC GRAVITY UA (POCT) 1.005 - 1.030 1.020 HEMOGLOBIN/BLOOD UA (POCT) Negative Negative PH UA (POCT) 4.5 - 8.0 6.0 PROTEIN UA (POCT) Negative mg/dL Negative UROBILINOGEN UA (POCT) Normal E.U./dL 0.2 NITRITE UA (POCT) Negative Negative LEUKOCYTES UA (POCT) Negative Negative COLOR UA (POCT) Yellow CLARITY UA (POCT) Clear WBC 3.70 - 11.00 k/uL 4.43 RBC 4.20 - 6.00 m/uL 5.01 Hemoglobin 13.0 - 17.0 g/dL 14.0 Hematocrit 39.0 - 51.0 % 42.5 MCV 80.0 - 100.0 fL 84.8 MCH 26.0 - 34.0 pg 27.9 MCHC 30.5 - 36.0 g/dL 32.9 RDW-CV 11.5 - 15.0 % 14.7 Platelet Count 150 - 400 k/uL 107 (L) MPV 9.0 - 12.7 fL 10.5 Absolute nRBC <0.01 k/uL <0.01 Creatinine, Ur Random (UCRR) 20.0 - 300.0 mg/dL 66.4 Albumin, Urine Random mg/L <12.0 Albumin/Creat Ratio <30 mg/g <18 Hemoglobin A1C 4.3 - 5.6 % 5.2 Estimated Average Glucose mg/dL 103 PSA Screening <2.60 ng/mL 4.37 (H) Amylase 30 - 104 U/L 17 (L) Lipase 16 - 61 U/L 16 Tacrolimus/FK506 5.0 - 20.0 ng/mL 7.5 BK DNA Result BK Virus DNA Not Detected by PCR. BK Virus DNA Not Detected by PCR. C-Peptide 0.81 - 3.85 ng/mL 2.70 MEDICATIONS: Current Outpatient Medications Medication Sig tacrolimus IR (PROGRAF) 1 mg capsule TAKE 3 CAPSULES BY MOUTH EVERY DAY IN THE MORNING AND TAKE 2 CAPSULES IN THE EVENING CREON 36,000-114,000- 180,000 unit delayed release capsule TAKE 1 TABLET BY MOUTH 3 TIMES DAILY WITH MEALS AND/OR WITH SNACKS mycophenolate Mofetil (CELLCEPT) 500 mg tablet TAKE 1 TABLET BY MOUTH TWICE DAILY omeprazole (PRILOSEC) 20 mg capsule Take (2) capsules by mouth daily No current facility-administered medications for this visit. 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 Type II or unspecified type diabetes mellitus without mention of complication, not stated as uncontrolled Unspecified essential hypertension PAST SURGICAL HISTORY Procedure Laterality Date AMPUTATION FOREARM THROUGH RADIUS & ULNA 1991 left ARTERIOVENOUS ANASTOMOSIS OPEN DIRECT 07/08/06 RIGHT FOREARM AV FISTULA CREATION BALLN ANGIOPLASTY,PERC VENOUS 09/08/06 BALLN ANGIOPLASTY,PERC VENOUS 10/08/06 FISTULOGRAM BALLN ANGIOPLASTY,PERC VENOUS 12/05/06 RIGHT BALLN ANGIOPLASTY,PERC VENOUS 01/19/07 BALLN ANGIOPLASTY,PERC VENOUS 04/01/07 BALLN ANGIOPLASTY,PERC VENOUS 10/14/07 COLONOSCOPY FLX DX W/COLLJ SPEC WHEN PFRMD 01/12/2003 Colonoscopy INSJ FRANK VAD REQ 2 CATH 2 SITS W/O SUBQ PORT/ENROLLMENT SERVICES DEAN 09/18/06 LEFT INTERNAL JUGULAR PAST SURGICAL HISTORY OF 07/2008 OS for DM/"macular degeneration" PAST SURGICAL HISTORY OF kidney and pancreas transplant 2007 PAST SURGICAL HISTORY OF 1991 LEFT HAND AMPUTEE PAST SURGICAL HISTORY OF [address] CATH AV DIALYSIS SHUNT 09/08/06 PLACE CATH AV DIALYSIS SHUNT 10/08/06 PLACE CATH AV DIALYSIS SHUNT 12/05/[address] CATH AV DIALYSIS SHUNT 01/19/07 PLACE CATH AV DIALYSIS SHUNT 04/01/07 PLACE CATH AV DIALYSIS SHUNT 10/14/07 RMVL FRANK CVC W/O SUBQ PORT/ENROLLMENT SERVICES DEAN 02/06/07 Removal of left IJ tessio catheters TRANSCATH STENT INIT VESSEL,PERCUT 10/08/06 TRANSCATH STENT INIT VESSEL,PERCUT 01/19/07 FAMILY HISTORY Problem Relation Age of Onset Diabetes Mother Heart Mother Hypertension Father Diabetes Father Prostate Cancer Father age 60 Heart Paternal Grandfather Prostate Cancer Paternal Uncle Prostate Cancer Paternal Uncle Social History Tobacco Use Smoking status: Never Smokeless tobacco: Never Substance Use Topics Alcohol use: No Reviewed current medications, allergies, past medical history, surgical history, family history andsocial history today. REVIEW OF SYSTEMS All other reviewed and negative other than HPI. HEALTH MAINTENANCE: Reviewed health maintenance issues today and recommended the following in detail. Highly suggested he consider immunizations below. Declines for now. HEPATITIS B(1 of 3 - 3-dose series) Never done HEPATITIS A(1 of 2 - Risk 2-dose series) Never done SHINGRIX VACCINE(1 of 2) Never done COLORECTAL CANCER SCREENING -suggested he discuss with Dr Madi. DTAP,TDAP,TD(2 - Tdap) due on 09/03/2015 PNEUMOCOCCAL(3 - PPSV23 if available, else PCV20) due on 04/07/2019 COVID-19 VACCINE(3 - Pfizer risk series) due on 08/01/2021 INFLUENZA(1) due on 06/06/2022 LDL CHOLESTEROL due on 07/26/2022 DEPRESSION ASSESSMENT Never done DIABETIC FOOT EXAM -per podiatry VITALS: BP 128/64 Pulse 63 Ht 175.3 cm (5' 9") Wt 93 kg (205 lb) SpO2 95% BMI 30.27 kg/m Last 4 Encounter Wt Readings: Date: Wt: 09/09/2022 86.2 kg (190 lb) 08/08/2022 86.2 kg (190 lb) 04/16/2022 88 kg (194 lb) 01/10/2022 87.1 kg (192 lb) PHYSICAL EXAMINATION: General appearance: Well appearing, alert, in no acute distress, well-hydrated, well nourished. Skin: Skin color, texture, turgor normal, no suspicious rashes or lesions Head: Normocephalic, no masses, lesions, tenderness or abnormalities Neck: Supple, no adenopathy; thyroid symmetric, normal size, no bruits Lungs: Lungs clear to auscultation. No wheezing, rhonchi, rales Heart: RRR without murmur, gallop, or rubs. No ectopy Abdomen: Normal abdominal exam, Abdomen soft, non-tender. Bowel sounds normal. No masses, organomegaly Extremities: No deformities, edema, skin discoloration, clubbing or cyanosis. Good capillary refill. Musculoskeletal: No joint swelling, deformity, or tenderness ASSESSMENT/PLAN: 1. 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) - ICD9: 250.60, 357.2, ICD10: E11.42 (primary diagnosis) - stable. Continue to see podiatry 2. 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 Encouraged immmunizations. 3. 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 - HGB A1C 4. Pure hypercholesterolemia - ICD9: 272.0, ICD10: E78.00 - LIPID PANEL BASIC 5. Essential hypertension - ICD9: 401.9, ICD10: I10 - good control - Continue current medication(s) - Goal of BP <130/80 6. Gastroparesis - ICD9: 536.3, ICD10: K31.84 - per Dr. Barraza. 7. Gastroesophageal reflux disease without esophagitis - ICD9: 530.81, ICD10: K21.9 - stable 8. Kidney replaced by transplant - ICD9: V42.0, ICD10: Z94.0 -as above. Tung Aguilar MD documented in this encounter[facility] History of Present illness Narrative* Rosa Medina MA - 09/11/2022 8:37 AM EST POPULATION HEALTH NAVIGATION OUTREACH Action/FY Patient declined ANNUAL MEDICARE WELLNESS COLORECTAL CANCER SCREENING Never done INFLUENZA(1) due on 06/06/2022 Pt identified by name and : YES, via phone Outreach Outcome/Action Spoke to patient or caregiver: Patient declined Did you use a PCP flex slot to schedule this appointment? N/A Reason for Outreach Care Gap or Scheduling/Wellness visits Payer: Payor: [employer] MEDICARE / Plan: [employer] / Product Type: HMO / Care Gap Reviewed:: Annual Wellness visit Colorectal Cancer Screening Flu vaccine Reminder: Reminder note to check Health Maintenance for items below Health Maintenance items due: HEPATITIS B(1 of 3 - 3-dose series) Never done HEPATITIS A(1 of 2 - Risk 2-dose series) Never done SHINGRIX VACCINE(1 of 2) Never done COLORECTAL CANCER SCREENING Never done DTAP,TDAP,TD(2 - Tdap) due on 09/03/2015 PNEUMOCOCCAL(3 - PPSV23 if available, else PCV20) due on 04/07/2019 COVID-19 VACCINE(3 - Pfizer risk series) due on 08/01/2021 DEPRESSION ASSESSMENT Never done INFLUENZA(1) due on 06/06/2022 LDL CHOLESTEROL due on 07/26/2022 Message Sent to Practice: No Navigation Signature: Rosa Medina MA September 11, 2022 8:37 AM documented in this encounterMer[facility]12-05-2022 NoteHNO ID: [id number] Author: Isha Coleman MD Service: ? Author Type: Physician Type: Progress Notes Filed: 09/12/2022 9:35 AM Note Text: NEW PATIENT HISTORY AND PHYSICAL EXAM PATIENT INFO: Homar Fallon 57 year old HPI 09/09/2022 Pt CC: psa VOIDING SYMPTOMS: Nocturia x1 and stream is good and voids every 3-4 hours approximately without gross hematuria or dysuria Dipstick urine negative Presents with his sister today and she says she helps him out and patient speaks slowly Father and 2 uncles with history of prostate cancer Is seeing me because of high PSA of 4.37 and only previous PSA 2018 when it was a little below 1 Has history of gastric bezoar and was taking things orally that could have irritated the bowels the sister said and even with the ultrasound he had of his prostate some irritation My prostate exam without any nodules Discussed significant rise in PSA but he would like to try Bactrim for 1 week and repeat PSA in 3 months to see if it trends down which could be very possible Follow-up 3 months for repeat prostate exam Past Uology History: Labs/Radiology/Procedures: August 12, 2022-ultrasound prostate-volume 31.2 cc and possible slightly hypoechoic nodule measuring 1.3 cm July 26, 2022-PSA-4.37 April 10, 2018-PSA-0.84 Creatinine Date Value Ref Range Status 07/26/2022 0.87 0.73 - 1.22 mg/dL Final PSA (ng/mL) Date Value 04/10/2018 0.84 PSA Screening (ng/mL) Date Value 07/26/2022 4.37 Color (no units) Date Value 01/10/2022 Yellow 07/13/2015 Yellow Clarity (no units) Date Value 01/10/2022 Clear 07/13/2015 Clear Glucose, Urine Date Value 01/10/2022 Negative 07/13/2015 Negative mg/dL Bilirubin, Urine (no units) Date Value 01/10/2022 Negative 07/13/2015 Negative Ketones, Urine (no units) Date Value 01/10/2022 Negative 07/13/2015 Negative Specific Hawkeye, Ur (no units) Date Value 01/10/2022 1.011 07/13/2015 1.005 Hemoglobin/Blood,Ur Date Value 01/10/2022 Negative 07/13/2015 Negative pH, Urine (no units) Date Value 01/10/2022 6.0 07/13/2015 6.0 Protein, Urine Date Value 01/10/2022 Negative 07/13/2015 Negative mg/dL Urobilinogen (no units) Date Value 01/10/2022 Negative 07/13/2015 Normal Nitrites (no units) Date Value 01/10/2022 Negative 07/13/2015 Negative Leukest (no units) Date Value 07/13/2015 Negative Leuk Esterase (no units) Date Value 01/10/2022 Negative Review of Systems Constitutional: Negative. HENT: Negative. Eyes: Negative. Respiratory: Negative. Cardiovascular: Negative. Gastrointestinal: Negative. Endocrine: Negative. Genitourinary: See HPI Musculoskeletal: Negative. Skin: Negative. Allergic/Immunologic: Negative. Neurological: Negative. Hematological: Negative. Psychiatric/Behavioral: Negative. 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 Type II or unspecified type diabetes mellitus without mention of complication, not stated as uncontrolled Unspecified essential hypertension FAMILY HISTORY Problem Relation Age of Onset Diabetes Mother Heart Mother Hypertension Father Diabetes Father Prostate Cancer Father age 60 Heart Paternal Grandfather Prostate Cancer Paternal Uncle Prostate Cancer Paternal Uncle SOCIAL HISTORY Social History Tobacco Use Smoking status: Never Smokeless tobacco: Never Substance Use Topics Alcohol use: No MEDICATIONS: CREON 36,000-114,000- 180,000 unit delayed release capsule TAKE 1 TABLET BY MOUTH 3 TIMES DAILY WITH MEALS AND/OR WITH SNACKS mycophenolate Mofetil (CELLCEPT) 500 mg tablet TAKE 1 TABLET BY MOUTH TWICE DAILY omeprazole (PRILOSEC) 20 mg capsule Take (2) capsules by mouth daily sildenafil (VIAGRA) 100 mg tablet Take 1 tablet by mouth as needed. tacrolimus IR (PROGRAF) 1 mg capsule TAKE 3 CAPSULES BY MOUTH EVERY DAY IN THE MORNING AND TAKE 2 CAPSULES IN THE EVENING sulfamethoxazole-trimethoprim (BACTRIM DS,SEPTRA DS) 800-160 mg per tablet Take 1 tablet by mouth twice daily. lidocaine viscous (LIDOCAINE VISCOUS) 2 % solution Take 15 mL by mouth every 3 hours as needed for pain. (Patient not taking: Reported on 08/08/2022) Physical Exam Constitutional: Comments: Patient speaks slowly HENT: Head: Normocephalic and atraumatic. Mouth/Throat: Pharynx: No oropharyngeal exudate. Pulmonary: Effort: Pulmonary effort is normal. Genitourinary: Prostate: Enlarged: 1.5+, no nodule. Rectum: Normal. Musculoskeletal: General: Normal range of motion. Cervical back: Normal range of motion. Skin: General: Skin is warm and dry. Neurological: Mental Status: He is alert and oriented to person, place, and time. Gait: Gait is intac (more content not included)...[facility] 09-09-2022 Instructions* Patient Instructions* Isha Coleman MD - 09/09/2022 10:09 AM EST PSA-3 months and see me after Take the Bactrim antibiotic now documented in this encounterMer[facility]12-05-2022 History of Present illness Narrative* Isha Coleman MD - 09/09/2022 9:48 AM EST NEW PATIENT HISTORY AND PHYSICAL EXAM PATIENT INFO: Homar Fallon 57 year old HPI 09/09/2022 Pt CC: psa VOIDING SYMPTOMS: Nocturia x1 and stream is good and voids every 3-4 hours approximately without gross hematuria or dysuria Dipstick urine negative Presents with his sister today and she says she helps him out and patient speaks slowly Father and 2 uncles with history of prostate cancer Is seeing me because of high PSA of 4.37 and only previous PSA 2018 when it was a little below 1 Has history of gastric bezoar and was taking things orally that could have irritated the bowels thesister said and even with the ultrasound he had of his prostate some irritation My prostate exam without any nodules Discussed significant rise in PSA but he would like to try Bactrim for 1 week and repeat PSA in 3 months to see if it trends down which could be very possible Follow-up 3 months for repeat prostate exam Past Uology History: Labs/Radiology/Procedures: August 12, 2022-ultrasound prostate-volume 31.2 cc and possible slightly hypoechoic nodule measuring 1.3 cm July 26, 2022-PSA-4.37 April 10, 2018-PSA-0.84 Creatinine Date Value Ref Range Status 07/26/2022 0.87 0.73 - 1.22 mg/dL Final PSA (ng/mL) Date Value 04/10/2018 0.84 PSA Screening (ng/mL) Date Value 07/26/2022 4.37 Color (no units) Date Value 01/10/2022 Yellow 07/13/2015 Yellow Clarity (no units) Date Value 01/10/2022 Clear 07/13/2015 Clear Glucose, Urine Date Value 01/10/2022 Negative 07/13/2015 Negative mg/dL Bilirubin, Urine (no units) Date Value 01/10/2022 Negative 07/13/2015 Negative Ketones, Urine (no units) Date Value 01/10/2022 Negative 07/13/2015 Negative Specific Hawkeye, Ur (no units) Date Value 01/10/2022 1.011 07/13/2015 1.005 Hemoglobin/Blood,Ur Date Value 01/10/2022 Negative 07/13/2015 Negative pH, Urine (no units) Date Value 01/10/2022 6.0 07/13/2015 6.0 Protein, Urine Date Value 01/10/2022 Negative 07/13/2015 Negative mg/dL Urobilinogen (no units) Date Value 01/10/2022 Negative 07/13/2015 Normal Nitrites (no units) Date Value 01/10/2022 Negative 07/13/2015 Negative Leukest (no units) Date Value 07/13/2015 Negative Leuk Esterase (no units) Date Value 01/10/2022 Negative Review of Systems Constitutional: Negative. HENT: Negative. Eyes: Negative. Respiratory: Negative. Cardiovascular: Negative. Gastrointestinal: Negative. Endocrine: Negative. Genitourinary: See HPI Musculoskeletal: Negative. Skin: Negative. Allergic/Immunologic: Negative. Neurological: Negative. Hematological: Negative. Psychiatric/Behavioral: Negative. 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 Type II or unspecified type diabetes mellitus without mention of complication, not stated as uncontrolled Unspecified essential hypertension FAMILY HISTORY Problem Relation Age of Onset Diabetes Mother Heart Mother Hypertension Father Diabetes Father Prostate Cancer Father age 60 Heart Paternal Grandfather Prostate Cancer Paternal Uncle Prostate Cancer Paternal Uncle SOCIAL HISTORY Social History Tobacco Use Smoking status: Never Smokeless tobacco: Never Substance Use Topics Alcohol use: No MEDICATIONS: CREON 36,000-114,000- 180,000 unit delayed release capsule TAKE 1 TABLET BY MOUTH 3 TIMES DAILY WITH MEALS AND/OR WITH SNACKS mycophenolate Mofetil (CELLCEPT) 500 mg tablet TAKE 1 TABLET BY MOUTH TWICE DAILY omeprazole (PRILOSEC) 20 mg capsule Take (2) capsules by mouth daily sildenafil (VIAGRA) 100 mg tablet Take 1 tablet by mouth as needed. tacrolimus IR (PROGRAF) 1 mg capsule TAKE 3 CAPSULES BY MOUTH EVERY DAY IN THE MORNING AND TAKE 2 CAPSULES IN THE EVENING sulfamethoxazole-trimethoprim (BACTRIM DS,SEPTRA DS) 800-160 mg per tablet Take 1 tablet by mouth twice daily. lidocaine viscous (LIDOCAINE VISCOUS) 2 % solution Take 15 mL by mouth every 3 hours as needed for pain. (Patient not taking: Reported on 08/08/2022) Physical Exam Constitutional: Comments: Patient speaks slowly HENT: Head: Normocephalic and atraumatic. Mouth/Throat: Pharynx: No oropharyngeal exudate. Pulmonary: Effort: Pulmonary effort is normal. Genitourinary: Prostate: Enlarged: 1.5+, no nodule. Rectum: Normal. Musculoskeletal: General: Normal range of motion. Cervical back: Normal range of motion. Skin: General: Skin is warm and dry. Neurological: Mental Status: He is alert and oriented to person, place, and time. Gait: Gait is intact. Psychiatric: Mood and Affect: Mood and affect normal. Cognition and Memory: Memory normal. Risk/Benefit Discussion: Discussed psa issues and option of just following it vs prostate us/bx. PSA not exact and it can fluctuate. Prostate cancer can be present even with a low psa or decreasing psa. Risk of bleeding( which can be severe and reqiure surgical intervention) or infection(which can be severe) or pain, discussed wiith bx. Would need to be off ASA type produucts. We have pt take abx the day of the biopsy. If biopsies are not performed, prostate ca might be missed. The possiblity of false negative results even discussed. The patient and I have discussed the implications of an elevated PSA. He understands this is a test indicating suspicion of possible prostate cancer, although several other benign conditions can cause an elevation as well. We have also discussed the concepts of screening and possible overdiagnosis, and the possibility of leading to tests or diagnoses yielding their own risks. He understands that there are many caveates of the elevated PSA, including sex before blood test, enlarged prostate, or inflammatory process in prostate. He also understands that PSA helps to detect prostate cancer at an earlier stage. And that if the prostate cancer is detected at the earlier stage, there is a possibility that it will save life and prolong longevity (according to the result of ESRPC study). In general, the risk that individual patients have prostate cancer detected if biopsy is performed at various levels of PSA is shown in the table below. PSA < or = 1.0 ng/mL 8.8% Risk of prostate cancer on biopsy PSA 1.1 - 2.0 ng/mL 17.0% Risk of prostate cancer on biopsy PSA 2.1 - 3.0 ng/mL 23.9% Risk of prostate cancer on biopsy PSA 3.1 - 4.0 ng/mL 26.9% Risk of prostate cancer on biopsy PSA 4.1 -10.0 ng/mL 47.0% Risk of prostate cancer on biopsy PSA >10.0 ng/mL 58.2% Risk of prostate cancer on biopsy Comment: Published data from the Prostate Cancer Prevention Trial demonstrated that there is no PSA level below which the risk of having prostate cancer is zero. For an individual patient, the significance of a PSA level should be interpreted in a broad clinical context, including age, race, family history, digital rectal exam, prostate size, results of prior prostate biopsy, and use of 5 alpha reductase inhibitors. Considering the high incidence of asymptomatic cancer in the general population that may not pose an ultimate risk to the patient, the decision to recommend urological evaluation or prostate biopsy should be individualized after considering all of these factors. References: Jeremy PEÑA et al. N Engl J Med(2004)350:2239-46 and Juliette TERESA et al. J Urol(2003)169:125-29. Prostate Ultrasound With Needle Biopsy Prostate Patient was instructed to stop all aspirin type products 7 days prior to the procedure. I explainedthe options concerning the findings of a prostatic nodule both with and without an elevated PSA, aswell as an elevated PSA without a prostate nodule. I specifically explained the possible complications, and the fact that a negative prostate biopsy does not definitely indicate that there is no prostate cancer present, but only that there was no malignancy found in the biopsy specimens. I explained the possibility of impotency and some incontinence, blood in the urine, stool/possible severe and admition to hospital , and/or semen. He may also experience frequency, urgency, and dysuria after the procedure. I explained the remote possibility of blood loss and the possibility of infection of the prostate and rectum post operatively/sepsis risk. The patient expressed an understanding with regard to possible benefits, risks, complications and outcome. FOLLOW UP: Return in about 3 months (around 12/08/2022). ASSESSMENT/PLAN: 1. Elevated PSA - ICD9: 790.93, ICD10: R97.20 - SULFAMETHOXAZOLE 800 MG-TRIMETHOPRIM 160 MG TABLET - PSA/PROSTSPECAG DIAG 2. Abnormal ultrasound - ICD9: 793.99, ICD10: R93.89 Isha Coleman Please note: This note has been produced using speech recognition software and may contain errors related to that system including grammar, punctuation, spelling, gender and words and phrases that may be inappropriate. documented in this encounterMer[facility]11-[facility]-2022 Miscellaneous Notes* Telephone Encounter - Tung Aguilar MD - 08/14/2022 12:42 PM EST Discussed with patient to see urology, please set up documented in this encounterMer[facility]11-07-2022 NoteHNO ID: [id number] Author: RT Solomon(R) Service: Radiology Author Type: Technologist Type: Progress Notes Filed: 08/12/2022 1:31 PM Note Text: Radiology Service Progress Note PATIENT NAME: Homar Fallon DATE OF SERVICE: August 12, 2022 TIME: 1:31 PM PATIENT IDENTITY VERIFICATION COMPLETED USING TWO (2) IDENTIFIERS: Name and Date of confirmed by patient verbally. FALL SCREENING: Has the patient had 2 falls in the last year or 1 fall with injury or currently using an Ambulatory Assistive Device (Walker, Cane, Wheelchair, Crutches, etc.)? No PATIENT GENDER DATA: Male PATIENT RELEVANT IMPLANT DATA REVIEWED: Not Applicable RADIOLOGY DEPARTMENT: Ultrasound PERIPHERAL IV DATA: Not applicable SIGNED BY: RT Solomon(R) August 12, 2022 1:31 [facility]11-07-2022 History of Present illness Narrative* RT Solomon(R) - 08/12/2022 1:00 PM EST Radiology Service Progress Note PATIENT NAME: Homar Fallon DATE OF SERVICE: August 12, 2022 TIME: 1:31 PM PATIENT IDENTITY VERIFICATION COMPLETED USING TWO (2) IDENTIFIERS: Name and Date of confirmedby patient verbally. FALL SCREENING: Has the patient had 2 falls in the last year or 1 fall with injury or currently using an Ambulatory Assistive Device (Walker, Cane, Wheelchair, Crutches, etc.)? No PATIENT GENDER DATA: Male PATIENT RELEVANT IMPLANT DATA REVIEWED: Not Applicable RADIOLOGY DEPARTMENT: Ultrasound PERIPHERAL IV DATA: Not applicable SIGNED BY: RT Solomon(R) August 12, 2022 1:31 PM documented in this encounterMer[facility]11-03-2022 History of Present illness Narrative* Suleiman Almanza PA-C - 08/08/2022 2:00 PM EDT 56 year old male with s/p kidney and pancreas transplant. c/o Father and Brother with prostate cancer. BPH with LUTS Force of Stream: normal . 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 Type II or unspecified type diabetes mellitus without mention of complication, not stated as uncontrolled Unspecified essential hypertension PAST SURGICAL HISTORY Procedure Laterality Date AMPUTATION FOREARM THROUGH RADIUS & ULNA 1991 left ARTERIOVENOUS ANASTOMOSIS OPEN DIRECT 07/08/06 RIGHT FOREARM AV FISTULA CREATION BALLN ANGIOPLASTY,PERC VENOUS 09/08/06 BALLN ANGIOPLASTY,PERC VENOUS 10/08/06 FISTULOGRAM BALLN ANGIOPLASTY,PERC VENOUS 12/05/06 RIGHT BALLN ANGIOPLASTY,PERC VENOUS 01/19/07 BALLN ANGIOPLASTY,PERC VENOUS 04/01/07 BALLN ANGIOPLASTY,PERC VENOUS 10/14/07 COLONOSCOPY FLX DX W/COLLJ SPEC WHEN PFRMD 01/12/2003 Colonoscopy INSJ FRANK VAD REQ 2 CATH 2 SITS W/O SUBQ PORT/ENROLLMENT SERVICES DEAN 09/18/06 LEFT INTERNAL JUGULAR PAST SURGICAL HISTORY OF 07/2008 OS for DM/"macular degeneration" PAST SURGICAL HISTORY OF kidney and pancreas transplant 2007 PAST SURGICAL HISTORY OF 1991 LEFT HAND AMPUTEE PAST SURGICAL HISTORY OF [address] CATH AV DIALYSIS SHUNT 09/08/06 PLACE CATH AV DIALYSIS SHUNT 10/08/06 PLACE CATH AV DIALYSIS SHUNT 12/05/[address] CATH AV DIALYSIS SHUNT 01/19/07 PLACE CATH AV DIALYSIS SHUNT 04/01/07 PLACE CATH AV DIALYSIS SHUNT 10/14/07 RMVL FRANK CVC W/O SUBQ PORT/ENROLLMENT SERVICES DEAN 02/06/07 Removal of left IJ tessio catheters TRANSCATH STENT INIT VESSEL,PERCUT 10/08/06 TRANSCATH STENT INIT VESSEL,PERCUT 01/19/07 Social History Tobacco Use Smoking status: Never Smokeless tobacco: Never Substance Use Topics Alcohol use: No ACTIVE PROBLEM LIST Diabetes Mellitus Type I (Hcc) Essential Hypertension Pure Hypercholesterolemia Renal Failure, Unspecified Mechanical Complication of Other Vascular Device, Implant, and Graft Pancreas Replaced By Transplant (Hcc) Kidney Replaced By Transplant Leukocytopenia, Unspecified History of Cytomegalovirus Infection Dupuytren's Contracture of Hand Dupuytren's Disease Pain in Limb Other Joint Derangement, Not Elsewhere Classified, Hand Dupuytren's Contracture of Foot Prophylactic Immunotherapy Stiffness of Joint, Not Elsewhere Classified, Hand Neck Pain Deafferentation Pain Chronic Pain Gastric Bezoar Acute Gastric Erosion Current Outpatient Medications Medication Sig Dispense Refill mycophenolate Mofetil (CELLCEPT) 500 mg tablet TAKE 1 TABLET BY MOUTH TWICE DAILY 180 tablet 3 omeprazole (PRILOSEC) 20 mg capsule Take (2) capsules by mouth daily sildenafil (VIAGRA) 100 mg tablet Take 1 tablet by mouth as needed. 6 tablet 11 tacrolimus IR (PROGRAF) 1 mg capsule TAKE 3 CAPSULES BY MOUTH EVERY DAY IN THE MORNING AND TAKE 2 CAPSULES IN THE EVENING 450 capsule 3 lidocaine viscous (LIDOCAINE VISCOUS) 2 % solution Take 15 mL by mouth every 3 hours as needed for pain. 120 mL 1 No current facility-administered medications for this visit. HEPATITIS B(1 of 3 - 3-dose series) Never done HEPATITIS A(1 of 2 - Risk 2-dose series) Never done SHINGRIX VACCINE(1 of 2) Never done COLORECTAL CANCER SCREENING Never done DTAP,TDAP,TD(2 - Tdap) due on 09/03/2015 PNEUMOCOCCAL(3 - PPSV23 if available, else PCV20) due on 04/07/2019 COVID-19 VACCINE(3 - Pfizer risk series) due on 08/01/2021 DEPRESSION ASSESSMENT Never done INFLUENZA(1) due on 06/06/2022 LDL CHOLESTEROL due on 07/26/2022 EXAM: BP 128/62 Pulse 85 Resp 16 Wt 86.2 kg (190 lb) SpO2 96% BMI 28.06 kg/m Pleasant adult man in no acute distress. Alert and oriented all spheres. Normal affect and cognition. Speech normal. No deficits to learning or comprehension. Skin warm, dry, pink to lips and nailbeds. Normal turgor. Respirations regular and unlabored. Chest is normal shape. Lungs are clear to all patterson with good air exchange through out. HRRR without murmur or gallop. Abdomen: active bowel sounds throughout, soft, nontender, no masses or organomegaly. No CVAT. Chaperoned exam: smooth prostate without nodules though right > left lobe, non-tender. Extrem: no clubbing or cyanosis. Edema: none. Extremities are warm and pink with prompt capillary refill. ASSESSMENT/PLAN: 1. Elevated PSA - ICD9: 790.93, ICD10: R97.20 FH prostate cancer 2 first degree relatives Consider consult urology pending results Educated on testing and issues with PSA reliability - US PROSTATE Suleiman Almanza PA-C Some of this note may have been copied and pasted for the purpose of history context and comparison. documented in this encounterMer[facility]10-31-2022 Miscellaneous Notes* Telephone Encounter - Odette Montoya RN - 08/05/2022 12:21 PM EDT Patient calls and notified of results and providers instructions. Patient voiced understanding. Patient set up appointment with Sushant on 08/08/2022. Patient states that his father had prostate cancer. Odette Montoya RN * Telephone Encounter - Janak Meza LPN - 08/05/2022 11:44 AM EDT Left message to return call to office. Janak Meza LPN * Telephone Encounter - Suleiman Almanza PA-C - 08/05/2022 5:41 AM EDT Please advise: Sorry for the delay, Dr. Aguilar has been out the office. PSA is mildly elevated. Unfortunately this test is not a relaable screening test. I would recommend he come in for exam and possible US. We need to know if there is a hx of prostate cancer in the family. Thanks, Sushant Almanza PA-C documented in this encounterMer[facility]10-24-2022 [facility] Medical Records Department [address] [place] [address] History Physical Exam 07/29/22 1157 MR#: [id number] Acct: [id number] Name: HOMAR FALLON Rep #: [id number] : 1965 56 From: David Friend DO PCP: Dr. 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 On EGD there was also retained food in the duodenum. He does feel better after treatment for bezoar with concoction of coke/baking soda/cellulase; it caused significant diarrhea, he feels a lot less upper abd discomfort, bloating, nausea, early satiety. He gets discomfort LUQ, may be gas pains, has constipation. He is on omeprazole for gerd. He has a history of type 1 diabetes which was treated with kidney and pancreas transplants.??? Laryngoscopy performed 12.20.21 with severe edema of the interarytenoid space noted. Barium swallow 12.25.21 finding small sliding hernia with GERD; tablet of barium trapped at GE junction. 05/09/22 Gastric Emptying Study: significantly delayed emptying;???emptying was calculated to be >200 minutes (normal 12-56 min). ROS Const Constitutional: No fatigue ENT ENT: No difficulty swallowing Gastro GI: Positive for abdominal pain, bloating, constipation and excessive flatus; No belching, change in bowel habits, change in stool character, coffee ground emesis, cramping, diarrhea, heartburn, difficulty swallowing, feeling full early, incontinent of stools, Vomiting blood/hematemesis, Blood in stool, loose stools, Black,tarry stools, nausea/dyspepsia, pain with swallowing, vomiting or other Musc Musculoskeletal: No joint pain Skin Skin: No yellowing of the eye or itchy eyes Psych Psychiatric: No anxiety and No depression Endo Endocrine: No fatigue Aller/Imm Allergy/Immunologic: No itchy eyes Skip/Lymp Hematologic/Lymphatic: No easy bleeding or easy bruising Exam Const General: cooperative, comfortable and no acute distress Nutritional Appearance: overweight Orientation: alert, awake and oriented x3 Quality Reporting Tobacco Screening ([facility] 138) Smoking Status: Never smoker Assessment and Plan Assessment and Plan (1) Gastroparesis: ?Status:???Acute ?Plan: Discussed significant delayed emptying start reglan 5 mg before meals (usually 2 meals per day), cautioned re risk of tardive dyskinesia repeat egd to reevaluate the status of the bezoar, f/u 2 wks after egd ? Medications: New metoclopramide HCl ? administer 30 minutes before meals 5??? I have re-examined the patient. There are no clinical changes since date of exam. 07/29/22 1158 Cosigner Signature (if applicable): CC: Dr. Tung Aguilar MD; David Barraza DO [facility] Miscellaneous Notes* Telephone Encounter - Sissy Segal - 07/22/2022 1:56 PM EDT The following approved medication requests have been transmitted electronically. Requested Prescriptions Signed Prescriptions Disp Refills mycophenolate Mofetil (CELLCEPT) 500 mg tablet 180 tablet 3 Sig: TAKE 1 TABLET BY MOUTH TWICE DAILY Authorizing Provider: MEHRAN URRUTIA APRN.GERIATRIC SOCIAL WORKER documented in this encounterMercy Health [facility]07-12-2022 History of Present illness Narrative* Tung Aguilar MD - 04/16/2022 2:46 PM EDT Patient presents with: Follow Up: 6 month HPI: Patient presents today for office visit for follow up. Transplant med: No signs of infection. No fever. No skin changes. Patient tolerating meds well. no side effects with the meds. GASTROENTEROLOGY: Seeing Dr. Barraza. Still having difficulty swallowing solids foods since July 2021. Patient notes no difficulty with liquids. Patient avoiding solid foods. EGD performed - 04/05/22. Esophageal narrowing. Bezoar noted. No esophageal burning. Patient sleeping sitting up d/t excessive belching while laying. Dull achy pain noted while flat - treats with tylenol for relief. Patient notes SOB while laying flat. No SOB with exertion Patient bloated and distended. LBM: 04/15/12. Intermittent diarrhea - worsening the last 4-5 days. None in a few days. Red flags for re-assessment reviewed with patient in detail. No heartburn noted. No black or bloody stools. Bowel sounds - hyperactive. They are discussing doing a gastric emptying study. He sees gi again on Friday HYPERTENSION: Patient checks BP at home. Avg. 118/68 No chest pain. No chest tightness. No palpitations. Hx of DM: Stable. Still seeing podiatry. PSYCH: Mood overall well. Good fluid intake. Sleeping alright. Component Latest Ref Rng & Units 01/15/2022 Protein, Total 6.3 - 8.0 g/dL 6.1 (L) Albumin 3.9 - 4.9 g/dL 4.2 Calcium 8.5 - 10.2 mg/dL 9.0 Bilirubin, Total 0.2 - 1.3 mg/dL 0.6 Alkaline Phosphatase 38 - 113 U/L 90 AST 14 - 40 U/L 18 ALT 10 - 54 U/L 15 Glucose 74 - 99 mg/dL 115 (H) BUN 9 - 24 mg/dL 12 Creatinine 0.73 - 1.22 mg/dL 0.88 Sodium 136 - 144 mmol/L 140 Potassium 3.7 - 5.1 mmol/L 4.1 Chloride 97 - 105 mmol/L 106 (H) CO2 22 - 30 mmol/L 26 Anion Gap 9 - 18 mmol/L 8 (L) eGFR >=60 mL/min/1.73m 100 WBC 3.70 - 11.00 k/uL 5.10 RBC 4.20 - 6.00 m/uL 5.35 Hemoglobin 13.0 - 17.0 g/dL 15.4 Hematocrit 39.0 - 51.0 % 44.2 MCV 80.0 - 100.0 fL 82.6 MCH 26.0 - 34.0 pg 28.8 MCHC 30.5 - 36.0 g/dL 34.8 RDW-CV 11.5 - 15.0 % 14.2 Platelet Count 150 - 400 k/uL 124 (L) MPV 9.0 - 12.7 fL 10.5 Absolute nRBC <0.01 k/uL <0.01 Hemoglobin A1C 4.3 - 5.6 % 5.0 Estimated Average Glucose mg/dL 97 Amylase 30 - 104 U/L 19 (L) Lipase 16 - 61 U/L 19 Tacrolimus/FK506 5.0 - 20.0 ng/mL 9.8 BK DNA Result BK Virus DNA Not Detected by PCR. BK Virus DNA Not Detected by PCR. C-Peptide 0.81 - 3.85 ng/mL 1.50 MEDICATIONS: Current Outpatient Medications Medication Sig omeprazole (PRILOSEC) 20 mg capsule Take (2) capsules by mouth daily sildenafil (VIAGRA) 100 mg tablet Take 1 tablet by mouth as needed. tacrolimus IR (PROGRAF) 1 mg capsule TAKE 3 CAPSULES BY MOUTH EVERY DAY IN THE MORNING AND TAKE 2 CAPSULES IN THE EVENING mycophenolate Mofetil (CELLCEPT) 500 mg tablet TAKE 1 TABLET BY MOUTH TWICE DAILY. DIAGNOSIS CODE: Z94.0, KIDNEY TRANSPLANT lidocaine viscous (LIDOCAINE VISCOUS) 2 % solution Take 15 mL by mouth every 3 hours as needed for pain. No current facility-administered medications for this visit. 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 Type II or unspecified type diabetes mellitus without mention of complication, not stated as uncontrolled Unspecified essential hypertension PAST SURGICAL HISTORY Procedure Laterality Date AMPUTATION FOREARM THROUGH RADIUS & ULNA 1991 left ARTERIOVENOUS ANASTOMOSIS OPEN DIRECT 07/08/06 RIGHT FOREARM AV FISTULA CREATION BALLN ANGIOPLASTY,PERC VENOUS 09/08/06 BALLN ANGIOPLASTY,PERC VENOUS 10/08/06 FISTULOGRAM BALLN ANGIOPLASTY,PERC VENOUS 12/05/06 RIGHT BALLN ANGIOPLASTY,PERC VENOUS 01/19/07 BALLN ANGIOPLASTY,PERC VENOUS 04/01/07 BALLN ANGIOPLASTY,PERC VENOUS 10/14/07 COLONOSCOPY FLX DX W/COLLJ SPEC WHEN PFRMD 01/12/2003 Colonoscopy INSJ FRANK VAD REQ 2 CATH 2 SITS W/O SUBQ PORT/ENROLLMENT SERVICES DEAN 09/18/06 LEFT INTERNAL JUGULAR PAST SURGICAL HISTORY OF 07/2008 OS for DM/"macular degeneration" PAST SURGICAL HISTORY OF kidney and pancreas transplant 2007 PAST SURGICAL HISTORY OF 1991 LEFT HAND AMPUTEE PAST SURGICAL HISTORY OF [address] CATH AV DIALYSIS SHUNT 09/08/06 PLACE CATH AV DIALYSIS SHUNT 10/08/06 PLACE CATH AV DIALYSIS SHUNT 12/05/[address] CATH AV DIALYSIS SHUNT 01/19/07 PLACE CATH AV DIALYSIS SHUNT 04/01/07 PLACE CATH AV DIALYSIS SHUNT 10/14/07 RMVL FRANK CVC W/O SUBQ PORT/ENROLLMENT SERVICES DEAN 02/06/07 Removal of left IJ tessio catheters TRANSCATH STENT INIT VESSEL,PERCUT 10/08/06 TRANSCATH STENT INIT VESSEL,PERCUT 01/19/07 FAMILY HISTORY Problem Relation Age of Onset Diabetes Mother Heart Mother Heart Paternal Grandfather Hypertension Father Diabetes Father Social History Tobacco Use Smoking status: Never Smoker Smokeless tobacco: Never Used Substance Use Topics Alcohol use: No Drug use: Not on file Reviewed current medications, allergies, past medical history, surgical history, family history andsocial history today. REVIEW OF SYSTEMS All other reviewed and negative other than HPI. HEALTH MAINTENANCE: Reviewed health maintenance issues today and recommended the following in detail. COLORECTAL CANCER SCREENING. Discussed with patient. Colonoscopy agreed. DTAP,TDAP,TD(2 - Tdap) due on 09/03/2015 PNEUMOCOCCAL-had two URINE ALBUMIN:CREATININE RATIO due on 09/20/2021 VITALS: BP 110/60 Pulse 75 Resp 16 Wt 88 kg (194 lb) SpO2 98% BMI 28.65 kg/m Last 4 Encounter Wt Readings: Date: Wt: 01/10/2022 87.1 kg (192 lb) 10/16/2021 85.3 kg (188 lb) 09/07/2021 87 kg (191 lb 12.8 oz) 03/07/2021 84.8 kg (187 lb) PHYSICAL EXAMINATION: General appearance: Well appearing, alert, in no acute distress, well-hydrated, well nourished. Skin: Skin color, texture, turgor normal, no suspicious rashes or lesions Head: Normocephalic, no masses, lesions, tenderness or abnormalities Oropharynx: Lips, mucosa, and tongue normal, teeth and gums normal, oropharynx normal Neck: Supple, no adenopathy; thyroid symmetric, normal size, no bruits Back: Normal exam Lungs: Lungs clear to auscultation. No wheezing, rhonchi, rales Heart: RRR without murmur, gallop, or rubs. No ectopy Abdomen: distended abdomen with mild hyperactivity. Extremities: Left amputee. Musculoskeletal: No joint swelling, deformity, or tenderness Peripheral pulses: Normal Neuro: Gait normal. Reflexes normal and symmetric. Sensation grossly intact. ASSESSMENT/PLAN: 1. Essential hypertension - ICD9: 401.9, ICD10: I10 (primary diagnosis) - good control - Continue current medication(s) - Goal of BP <130/80 2. Gastric bezoar, sequela - ICD9: 908.5, ICD10: T18.2XXS - encouraged to follow up with gi. 3. Acute gastric erosion - ICD9: 531.30, ICD10: K25.3 - as above. 4. 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 Pure hypercholesterolemia - ICD9: 272.0, ICD10: E78.00 6. Prophylactic immunotherapy - ICD9: V07.2, ICD10: Z29.8 7. Kidney replaced by transplant - ICD9: V42.0, ICD10: Z94.0 8. 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 - ALBUMIN/CREAT RATIO RND UR Tung Aguilar RTO in six months and prn. documented in this encounterMer[facility]04-07-2022 History of Present illness Narrative* Mehran Urrutia, AIRLINE CUSTOMER SERVICE AGENT.GERIATRIC SOCIAL WORKER - 01/10/2022 10:33 AM EDT Patient presents for renal tx follow up The HPI and Assessment was copied from my previous note dated 07/13/2015 with changes as noted This is a 56 year old male who presents for follow up of a Simultaneous Kidney- Pancreas transplant. 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 Type II or unspecified type diabetes mellitus without mention of complication, not stated as uncontrolled Unspecified essential hypertension PAST SURGICAL HISTORY Procedure Laterality Date AMPUTATION FOREARM THROUGH RADIUS & ULNA 1991 left ARTERIOVENOUS ANASTOMOSIS OPEN DIRECT 07/08/06 RIGHT FOREARM AV FISTULA CREATION BALLN ANGIOPLASTY,PERC VENOUS 09/08/06 BALLN ANGIOPLASTY,PERC VENOUS 10/08/06 FISTULOGRAM BALLN ANGIOPLASTY,PERC VENOUS 12/05/06 RIGHT BALLN ANGIOPLASTY,PERC VENOUS 01/19/07 BALLN ANGIOPLASTY,PERC VENOUS 04/01/07 BALLN ANGIOPLASTY,PERC VENOUS 10/14/07 COLONOSCOPY FLX DX W/COLLJ SPEC WHEN PFRMD 01/12/2003 Colonoscopy INSJ FRANK VAD REQ 2 CATH 2 SITS W/O SUBQ PORT/ENROLLMENT SERVICES DEAN 09/18/06 LEFT INTERNAL JUGULAR PAST SURGICAL HISTORY OF 07/2008 OS for DM/"macular degeneration" PAST SURGICAL HISTORY OF kidney and pancreas transplant 2007 PAST SURGICAL HISTORY OF 1991 LEFT HAND AMPUTEE PAST SURGICAL HISTORY OF [address] CATH AV DIALYSIS SHUNT 09/08/06 PLACE CATH AV DIALYSIS SHUNT 10/08/06 PLACE CATH AV DIALYSIS SHUNT 12/05/[address] CATH AV DIALYSIS SHUNT 01/19/07 PLACE CATH AV DIALYSIS SHUNT 04/01/07 PLACE CATH AV DIALYSIS SHUNT 10/14/07 RMVL FRANK CVC W/O SUBQ PORT/ENROLLMENT SERVICES DEAN 02/06/07 Removal of left IJ tessio catheters TRANSCATH STENT INIT VESSEL,PERCUT 10/08/06 TRANSCATH STENT INIT VESSEL,PERCUT 01/19/07 last seen here in 2014 2019Hospitalizations locally for cellulitis and osteomyelitis in L foot, underwent 2nd toe Amputation Rx with Bactrim--azotemia reportedly noted, wound vac L foot infection/ulceration Aug 2021 dysphagia Barium Swallow Study-hiatal hernia and GERD Omeprazole dose increased from 20mg daily to 40mg daily Overall, doing ok. No fevers or chills. Trying to eat small amounts at a time, drinking small amounts. Occasional nausea associated with dysphagia. Intermittent vomiting. No odynophagia. No diarrhea or constipation. No urinary issues. No MARISOL.No cough, (+) freq belching. No shortness of breath or chest pain. No palpitations. No lightheadedness or dizziness. Average BP (BpTru): 116/71 BpTRU BP #1 discard value (BpTru): 122/71 Pulse #1 Discard Value (BpTru): 74 beats/min BP #2 (BpTru): 117/72 Pulse #2 (BpTru): 78 beats/min BP #3 (BpTru): 116/66 Pulse #3 (BpTru): 81 beats/min BP #4 (BpTru): 122/70 Pulse #4 (BpTru): 78 beats/min BP #5 (BpTru): 115/70 Pulse #5 (BpTru): 75 beats/min BP #6 (BpTru): 109/75 Pulse #6 (BpTru): 78 beats/min Average BP (BpTru): 116/71 Average Pulse (BpTru): 78 beats/min BP cuff location: Right upper arm BP cuff size: regular adult Orthostatic Vitals Standing BP (BpTru): 108/65 Standing pulse (BpTru): 82 Component Latest Ref Rng & Units 02/26/2021 07/26/2021 09/07/2021 Protein, Total 6.3 - 8.0 g/dL 6.2 (L) 5.9 (L) Albumin 3.9 - 4.9 g/dL 4.2 4.0 Calcium 8.5 - 10.2 mg/dL 9.6 9.7 Bilirubin, Total 0.2 - 1.3 mg/dL 0.8 0.7 Alkaline Phosphatase 38 - 113 U/L 93 86 AST 14 - 40 U/L 19 17 Glucose 74 - 99 mg/dL 112 (H) 117 (H) BUN 9 - 24 mg/dL 16 15 Creatinine 0.73 - 1.22 mg/dL 1.00 0.87 Sodium 136 - 144 mmol/L 143 138 Potassium 3.7 - 5.1 mmol/L 4.0 3.7 Chloride 97 - 105 mmol/L 107 (H) 106 (H) CO2 22 - 30 mmol/L 27 23 Anion Gap 9 - 18 mmol/L 9 9 ALT 10 - 54 U/L 12 10 eGFR- >60 >60 eGFR-All Other Races . >60 >60 WBC 3.70 - 11.00 k/uL 6.45 5.10 RBC 4.20 - 6.00 m/uL 5.81 5.50 Hemoglobin 13.0 - 17.0 g/dL 16.7 15.8 Hematocrit 39.0 - 51.0 % 48.8 46.5 MCV 80.0 - 100.0 fL 84.0 84.5 MCH 26.0 - 34.0 pG 28.7 28.7 MCHC 30.5 - 36.0 g/dL 34.2 34.0 RDW-CV 11.5 - 15.0 % 13.4 13.8 Platelet Count 150 - 400 k/uL 120 (L) 126 (L) MPV 9.0 - 12.7 fL 10.9 10.6 Absolute nRBC <0.01 k/uL <0.01 <0.01 Cholesterol, Total <200 mg/dL 143 Triglyceride <150 mg/dL 242 (H) HDL Cholesterol >39 mg/dL 28 (L) LDL Cholesterol <100 mg/dL 67 Non HDL Cholesterol <130 mg/dL 115 Fasting Time hrs 10 VLDL Cholesterol <30 mg/dL 48 (H) TC:HDL Ratio <5.10 5.11 (H) LDL:HDL Ratio <2.54 2.39 Hemoglobin A1C 4.3 - 5.6 % 5.0 Estimated Average Glucose mg/dL 97 Strep A (POCT) Negative Negative Procedural Control Valid Amylase 30 - 104 U/L 24 (L) 22 (L) Lipase 16 - 61 U/L 21 24 Tacrolimus/FK506 5.0 - 20.0 ng/mL 9.8 8.6 C-Peptide 0.8 - 3.9 ng/mL 2.9 BK Virus DNA Quant copies/mL Negative for BK virus DNA by PCR PHYSICAL EXAM: BP 116/71 Pulse 78 Temp 36.3 C (97.3 F) (Tympanic) Ht 175.3 cm (5' 9") Wt 87.1 kg (192 lb) BMI 28.35 kg/m General no acute distress, accompanied by his sister, Mitzi EYES: MOUTH: oral mucosa pink and moist without lesion, airway patent NECK: supple, no lymphadenopathy, JVD or bruit HEART: RRR, no murmurs, clicks or gallops LUNGS: CTA ABD: Soft, non-tender, bowel sounds x 4 quads EXT: no edema SKIN: no rash noted PSYCH alert and oriented x3 IMPRESSION S/p SPK tx 04/2008, stable allograft function of both organs on last check, needs updated labs No proteinuria on UA -Immunosuppression: Tolerating present dosing of TAC and MMF; Pred free -Blood Pressure controlled with medication rx -PPI for dysphagia that began Fall 2020, now seeing ENT locally -Hx of LE cellulitis and osteomyelitis, required toe amputation; healed, followed by local [facility] Maintenance per PCP Thrombocytopenia-needs updated CBC PLAN Update labs Same meds Stressed importance of regular tx labs surveillance and routine appts at least annually Avoid NSAIDS and contrast Follow expectantly Mehran Urrutia APRN.CNP documented in this encounterMer[facility]11-11-2012 History of Past illness Narrative* Problem Noted Date Resolved Date H/O pancreas transplant 08/16/2012 08/30/20 20 Pancreas transplant 04/05/2008 08/16/2012 Diabetes with renal manifestations 10/08/2005 08/16/2012 documented as of this encounter (statuses as of 01/14/2022) [facility] of Past illness Narrative* Problem Noted Date Resolved Date H/O pancreas transplant 08/16/2012 08/30/20 20 Pancreas transplant 04/05/2008 08/16/2012 Diabetes with renal manifestations 10/08/2005 08/16/2012 documented as of this encounter (statuses as of 01/14/2022) [facility] of Past illness Narrative* Problem Noted Date Resolved Date H/O pancreas transplant 08/16/2012 08/30/20 20 Pancreas transplant 04/05/2008 08/16/2012 Diabetes with renal manifestations 10/08/2005 08/16/2012 documented as of this encounter (statuses as of 01/24/2022) [facility] of Past illness Narrative* Problem Noted Date Resolved Date H/O pancreas transplant 08/16/2012 08/30/20 20 Pancreas transplant 04/05/2008 08/16/2012 Diabetes with renal manifestations 10/08/2005 08/16/2012 documented as of this encounter (statuses as of 04/16/2022) [facility] of Past illness Narrative* Problem Noted Date Resolved Date H/O pancreas transplant 08/16/2012 08/30/20 20 Pancreas transplant 04/05/2008 08/16/2012 Diabetes with renal manifestations 10/08/2005 08/16/2012 documented as of this encounter (statuses as of 06/19/2022) [facility] of Past illness Narrative* Problem Noted Date Resolved Date H/O pancreas transplant 08/16/2012 08/30/20 20 Pancreas transplant 04/05/2008 08/16/2012 Diabetes with renal manifestations 10/08/2005 08/16/2012 documented as of this encounter (statuses as of 07/23/2022) [facility] of [facility] illness Narrative* Problem Noted Date Resolved Date H/O pancreas transplant 08/16/2012 08/30/20 20 Pancreas transplant 04/05/2008 08/16/2012 Diabetes with renal manifestations 10/08/2005 08/16/2012 documented as of this encounter (statuses as of 08/09/2022) [facility] of [facility] illness Narrative* Problem Noted Date Resolved Date H/O pancreas transplant 08/16/2012 08/30/20 20 Pancreas transplant 04/05/2008 08/16/2012 Diabetes with renal manifestations 10/08/2005 08/16/2012 documented as of this encounter (statuses as of 08/13/2022) [facility] illness Narrative* Problem Noted Date Resolved Date H/O pancreas transplant 08/16/2012 08/30/20 20 Pancreas transplant 04/05/2008 08/16/2012 Diabetes with renal manifestations 10/08/2005 08/16/2012 documented as of this encounter (statuses as of 08/21/2022) [facility] illness Narrative* Problem Noted Date Resolved Date H/O pancreas transplant 08/16/2012 08/30/20 20 Pancreas transplant 04/05/2008 08/16/2012 Diabetes with renal manifestations 10/08/2005 08/16/2012 documented as of this encounter (statuses as of 09/11/2022) [facility] of [facility] illness Narrative* Problem Noted Date Resolved Date H/O pancreas transplant 08/16/2012 08/30/20 20 Pancreas transplant 04/05/2008 08/16/2012 Diabetes with renal manifestations 10/08/2005 08/16/2012 documented as of this encounter (statuses as of 09/12/2022) [facility] illness Narrative* Problem Noted Date Resolved Date H/O pancreas transplant 08/16/2012 08/30/20 20 Pancreas transplant 04/05/2008 08/16/2012 Diabetes with renal manifestations 10/08/2005 08/16/2012 documented as of this encounter (statuses as of 09/17/2022) [facility] [place] [facility]* Diagnosis Screening for genitourinary condition Screening for other and unspecified genitourinary condition documented [facility] this encounter [facility]* Diagnosis Kidney replaced by transplant- Primary 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 I (juvenile type) diabetes mellitus with other specified manifestations, not stated as uncontrolled documented [facility] this encounter [facility] [place] [facility]* Diagnosis Kidney replaced by transplant- Primary Sore throat Acute pharyngitis Aftercare following organ transplant Thrombocytopenia (HCC) Thrombocytopenia, unspecified Current use of proton pump inhibitor Encounter for long-term (current) use of other medications documented [facility] this encounter [facility]* Diagnosis Onset Date Resolution Status Dysphagia acute Esophageal pain acute Gastroesophageal reflux disease noneactive [facility] Work Phone: Evaluation note* Diagnosis Essential hypertension- Primary Unspecified essential hypertension Gastric bezoar, sequela Acute gastric erosion 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 Pure hypercholesterolemia Prophylactic immunotherapy Need for prophylactic immunotherapy Kidney replaced by transplant 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) documented [facility] this encounter [facility]* Diagnosis Onset Date Resolution Status Dysphagia acute Esophageal pain acute Gastroesophageal reflux disease noneactive Trichobezoar in stomach acut e [facility] Work Phone: Evaluation note* Diagnosis 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 Kidney replaced by transplant [facility] [place] [facility]* Diagnosis 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 Kidney replaced by transplant [facility] Elevated PSA- Primary Elevated prostate specific antigen (PSA) [facility] Elevated PSA Elevated prostate specific antigen (PSA) [facility] Diagnosis Elevated PSA- Primary Elevated prostate specific antigen (PSA) Abnormal ultrasound Other nonspecific (abnormal) findings on radiological and other examinations of body structure [facility]* Diagnosis Elevated PSA Elevated prostate specific antigen (PSA) Abnormal ultrasound Other nonspecific (abnormal) findings on radiological and other examinations of body structure [facility]* Diagnosis 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)- Primary 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) Pure hypercholesterolemia Essential hypertension Unspecified essential hypertension Gastroparesis Gastroesophageal reflux disease without esophagitis Esophageal reflux Kidney replaced by transplant [facility] Need for prophylactic immunotherapy [facility] [place] [facility] Diagnosis Elevated PSA- Primary Elevated prostate specific antigen (PSA) [facility] [place] [facility]* Diagnosis Kidney replaced by transplant- Primary 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 I (juvenile type) diabetes mellitus with other specified manifestations, not stated as uncontrolled Aftercare following organ transplant Thrombocytopenia (HCC) Thrombocytopenia, unspecified [facility] [place] [facility]* Diagnosis Screening for genitourinary condition Screening for other and unspecified genitourinary condition [facility] [place] [facility]* Diagnosis Pure hypercholesterolemia- Primary Essential hypertension Unspecified essential hypertension 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) Gastric bezoar, sequela Gastroparesis 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 Gastroesophageal reflux disease without esophagitis Esophageal reflux Kidney replaced by transplant 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) History of osteomyelitis Personal history of other musculoskeletal disorders Immunosuppression (HCC) Unspecified disorder of immune mechanism [facility] [place] [facility]* Diagnosis Onset Date Resolution Status Gastroparesis due to DM [facility] Work Phone: Evaluation note* Diagnosis Gastric bezoar, initial encounter- Primary Pre-op exam Preoperative examination, unspecified Gastric bezoar, initial encounter Pre-op exam Preoperative examination, unspecified [facility] [place] [facility]* Diagnosis Bezoar, initial encounter- Primary Gastroparesis due to secondary diabetes (HCC) Secondary diabetes mellitus with neurological manifestations, not stated as uncontrolled, or unspecified Gastric bezoar, initial encounter Pre-op exam Preoperative examination, unspecified [facility] Diagnosis Bezoar, initial encounter Gastric bezoar, initial encounter Pre-op exam Preoperative examination, unspecified [facility] [place] [facility]* Diagnosis Pre-op evaluation- Primary Preoperative examination, unspecified Essential hypertension Unspecified essential hypertension Pure hypercholesterolemia Gastroesophageal reflux disease without esophagitis Esophageal reflux Kidney replaced by transplant 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) Gastric bezoar, initial encounter Pre-op exam Preoperative examination, unspecified [facility]aresis- Primary [facility] Diagnosis Gastric bezoar, initial encounter Pre-op exam Preoperative examination, unspecified [facility] 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 Kidney replaced by transplant [facility] [place] [facility] Diagnosis Gastroparesis [facility] Diagnosis Gastroparesis- Primary [facility] Diagnosis Need for prophylactic immunotherapy [facility] Kidney replaced by transplant- Primary Need for prophylactic immunotherapy 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 I (juvenile type) diabetes mellitus with other specified manifestations, not stated as uncontrolled Aftercare following organ transplant [facility]) Thrombocytopenia, unspecified [facility] Diagnosis Screening for genitourinary condition Screening for other and unspecified genitourinary condition [facility] Diagnosis Pre-op evaluation- Primary Preoperative examination, unspecified Essential hypertension Unspecified essential hypertension Pure hypercholesterolemia Gastroesophageal reflux disease without esophagitis Esophageal reflux Kidney replaced by transplant 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 Kidney replaced by transplant [facility] [place] [facility]* Diagnosis Pre-op evaluation- Primary Preoperative examination, unspecified Essential hypertension Unspecified essential hypertension Pure hypercholesterolemia Gastroesophageal reflux disease without esophagitis Esophageal reflux Kidney replaced by transplant 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) Rash- Primary Rash and other nonspecific skin eruption [facility] [place] [facility]* Diagnosis Pre-op evaluation- Primary Preoperative examination, unspecified Essential hypertension Unspecified essential hypertension Pure hypercholesterolemia Gastroesophageal reflux disease without esophagitis Esophageal reflux Kidney replaced by transplant 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) Erythema migrans- Primary [facility] Pre-op evaluation- Primary Preoperative examination, unspecified Essential hypertension Unspecified essential hypertension Pure hypercholesterolemia Gastroesophageal reflux disease without esophagitis Esophageal reflux Kidney replaced by transplant 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) Essential hypertension- Primary Unspecified essential hypertension 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) Pure hypercholesterolemia 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 Gastroparesis Kidney replaced by transplant 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) Immunosuppression (HCC) Unspecified disorder of immune mechanism Thrombocytopenia (HCC) Thrombocytopenia, unspecified Dermatitis Contact dermatitis and other eczema, due to unspecified cause [facility] [place] [facility]* Diagnosis Pre-op evaluation- Primary Preoperative examination, unspecified Essential hypertension Unspecified essential hypertension Pure hypercholesterolemia Gastroesophageal reflux disease without esophagitis Esophageal reflux Kidney replaced by transplant 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) Screening for colon cancer- Primary Special screening for malignant neoplasms, colon documented in this [facility] [place] [facility]* Diagnosis Pre-op evaluation- Primary Preoperative examination, unspecified Essential hypertension Unspecified essential hypertension Pure hypercholesterolemia Gastroesophageal reflux disease without esophagitis Esophageal reflux Kidney 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) Kidney replaced by transplant 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) Kidney 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)- Primary Kidney replaced by transplant [facility] [place] [facility]* Diagnosis Pre-op evaluation- Primary Preoperative examination, unspecified Essential hypertension Unspecified essential hypertension Pure hypercholesterolemia Gastroesophageal reflux disease without esophagitis Esophageal reflux Kidney 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) Kidney replaced by transplant 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) Kidney 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)- Primary Kidney replaced by transplant 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 I (juvenile type) diabetes mellitus with other specified manifestations, not stated as uncontrolled Thrombocytopenia Thrombocytopenia, unspecified Pure hypercholesterolemia Aftercare following organ transplant Orthostatic hypotension Screening for genitourinary condition Screening for other and unspecified genitourinary condition Screening for genitourinary condition Screening for other and unspecified genitourinary condition [facility] [place] [facility]* Diagnosis Pre-op evaluation- Primary Preoperative examination, unspecified Essential hypertension Unspecified essential hypertension Pure hypercholesterolemia Gastroesophageal reflux disease without esophagitis Esophageal reflux Kidney 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) Kidney replaced by transplant 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) Kidney 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)- Primary Kidney replaced by transplant 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 I (juvenile type) diabetes mellitus with other specified manifestations, not stated as uncontrolled Thrombocytopenia Thrombocytopenia, unspecified Pure hypercholesterolemia Aftercare following organ transplant Orthostatic hypotension Screening for genitourinary condition Screening for other and unspecified genitourinary condition [facility] Diagnosis Pre-op evaluation- Primary Preoperative examination, unspecified Essential hypertension Unspecified essential hypertension Pure hypercholesterolemia Gastroesophageal reflux disease without esophagitis Esophageal reflux Kidney 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) Kidney replaced by transplant 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 Tung Aguilar MD Status:REG S LA Location: [place] [address] History and Physical Date of Admission: 05/07/23 f/u gastroparesis Details: HOMAR FALLON, is a 57 M who presents to the office today for 6 month f/u gastroparesis. He reports he is doing very well. He continues to take Creon pancreatic enzymes 1 cap with snack and 2 caps with meals. No longer taking cellulase or Coke. He had f/u with his transplant doctor last week, she would prefer that [facility] he be on lower dose of omeprazole, currently takes 40 mg daily. At his last EGD in 07/2022 almost all of the large phytobezoar was removed endoscopically.?Creon was started then. He hasn't needed metoclopramide.He denies early satiety, bloating, nausea, heartburn, abdominal pain. He is having a normal bowel movement without any signs of dumping or constipation.?No dysphagia. Clement established with this clinic 02.27.22 with referral from ENT for further evaluation of GERD and dysphagia with esophageal pain and emesis. This had been an ongoing issue for many months/years with worsening around 2020. [facility] pancreatic/kidney transplants in 2007 r/t DM type I with complication of renal disease requiring dialysis. Laryngoscopy performed 12.20.21 with severe edema of the interarytenoid space noted. Barium swallow 12.25.21 finding small sliding hernia with GERD; tablet of barium trapped at GE junction. EGD 04.05.22 noting tortuous esophagus; irregular Z-Line 38cm; non-bleeding erosive gastropathy; large amount of trichobezoar; retained food in duodenum. Gastric emptying study 05.09.22 timed at >200 minutes (12-56 normal). EGD 07.29.22 noting small hiatal hernia; large amount of food residue in stomach. No specimens collected. ROS Const Constitutional: No fatigue ENT ENT: No difficulty swallowing Gastro GI: No abdominal pain, belching, bloating, change in bowel habits, change in stool character, coffee ground emesis, constipation, cramping, diarrhea, heartburn, difficulty swallowing, feeling full early, excessive flatus, incontinent of stools, Vomiting blood/hematemesis, Blood in stool, loose stools,Black,tarry stools, nausea/dyspepsia, pain with swallowing, vomiting or other Musc Musculoskeletal: No joint pain Skin Skin: No yellowing of the eye or itchy eyes Psych Psychiatric: No anxiety and No depression Endo Endocrine: No fatigue Aller/Imm Allergy/Immunologic: No itchy eyes Skip/Lymp Hematologic/Lymphatic: No easy bleeding or easy bruising Exam Const General: cooperative, healthy appearing and comfortable Orientation: alert, awake and oriented x3 Quality Reporting Tobacco Screening ([facility] 138) Smoking Status: Never smoker Assessment and Plan Assessment and Plan (1) Gastroparesis due to DM: Status: Chronic Plan: Plan is repeat EGD to make sure the bezoar has not returned and the remnants have all been digested Continue omeprazole 40 mg daily for now; transplant physician would like him to be on lower dose eventually Continue Creon 1 cap with snacks and 2 caps with meals I have examined the patient and the H&P has been reviewed. There are no clinicalchanges since date of exam. 05/07/23 6465 <Electronically signed by David Barraza DO> Cosigner Signature (if applicable): CC: Dr. Tung Aguilar MD; David Barraza DO~ Signed [facility] Work Phone: [facility] for referral (narrative)* Diagnostic Procedure Only (Routine) - Authorized Specialty Diagnoses / Procedures Referred By Contac t Referred To Contact US IMAGING Diagnoses Elevated PSA Procedures US PROSTATE US PELVIC NONOBSTETRIC IMAGE BELINDA LIMITED/F/U Suleiman Almanza PA-C [address] [place] [address] Us Imaging Referral ID Status Reason Start Date Expiration Date Visits Requested Visits Authorized [id number] Authorized Auto-Generat ed Referral 08/08/2022 10/05/2022 1 1 [facility] for referral (narrative)* Diagnostic Procedure Only (Routine) - Closed Specialty Diagnoses / Procedures Referred By Mahi t Referred To Contact US IMAGING Diagnoses Elevated PSA Procedures US PROSTATE US PELVIC NONOBSTETRIC IMAGE BELINDA GUERRERO/F/U Suleiman Almanza PA-C [address] [place] [address] Us Imaging Referral ID Status Reason Start Date Expiration Date V isits Requested Visits Authorized [id number] Closed Auto-Generate d Referral 08/08/2022 10/05/2022 1 1 [facility] for referral (narrative)* Diagnostic Procedure Only (Routine) - Authorized Specialty Diagnoses / Procedures Referred By Contac t Referred To Contact XR IMAGING Diagnoses Bezoar, initial encounter Procedures XR UPPER GI SINGLE CONTRAST RADIOLOGIC EXAM UPR GI TR[place] [address] [place] [address] [place] [address] Referral ID Status Reason Start Date Expiration Date Visits Requested Visits Authorized [id number] Authorized Auto-Generat ed Referral 05/30/2023 10/05/2023 1 1 [facility] for referral (narrative)* Diagnostic Procedure Only (Routine) - Pending Review Specialty Diagnoses / Procedures Referred By Mahi barboza Referred To Contact MOLECULAR & FUNCTIONAL IMAGING Diagnoses Gastroparesis Procedures NM GASTRIC EMPTYING SOLID GASTRIC [place] [address] [place] [address] Molecular & Functional Imaging [address] [place] [address] Referral ID Status Reason Start Date Expiration Date Visits Requested Visits Authorized [id number] Pending Review Auto-Generat ed Referral 12/19/2023 07/19/2024 1 1 [facility] for referral (narrative)* Diagnostic Procedure Only (Routine) - Closed Specialty Diagnoses / Procedures Referred By Mahi barboza Referred To Contact MOLECULAR & FUNCTIONAL IMAGING Diagnoses Gastroparesis Procedures NM GASTRIC EMPTYING SOLID GASTRIC [place] [address] [place] [address] Molecular & Functional Imaging [address] [place] [address] Referral ID Status Reason Start Date Expiration Date V isits Requested Visits Authorized [id number] Closed Auto-Generate d Referral 12/19/2023 07/19/2024 1 1 [facility] for visit Narrative* Diagnostic Procedure Only (Routine) - Closed Specialty Diagnoses / Procedures [facility] Referred To Contact US IMAGING Diagnoses Elevated PSA Procedures US PROSTATE US PELVIC NONOBSTETRIC IMAGE DCMTN LIMITED/F/U Suleiman Almanza PA-C [address] [place] [address] Us Imaging Referral ID Status Reason Start Date Expiration Date V isits Requested Visits Authorized [id number] Closed Auto-Generate d Referral 08/08/2022 10/05/2022 1 1 [facility] for visit Narrative* Diagnostic Procedure Only (Routine) - Closed Specialty Diagnoses / Procedures [facility] Referred To Contact XR IMAGING Diagnoses Bezoar, initial encounter Procedures XR UPPER GI SINGLE CONTRAST RADIOLOGIC EXAM UPR GI TRC [place] [address] [place] [address] [place] [id number] Referral ID Status Reason Start Date Expiration Date V isits Requested Visits Authorized [id number] Closed Auto-Generate d Referral 05/30/2023 10/05/2023 1 1 [facility] Chief Complaint and Reason for Visit Chief Complaint GERD Gastroesophageal reflux disease (GERD) Reason for Visit Dysphagia Esophageal pain Gastroesophageal reflux disease Chief Complaint Gastroesophageal ref lux disease (GERD) 2 WK FU DIABETES Reason for Visit Dysphagia Esophageal pain Gastroesophageal reflux disease Trichobezoar in stomach Chief Complaint 6 MO FU Reason for Visit Gastroparesis due to DM Family History No Family History Records Found Relationship Condition Age at Onset Recorded Date/T ashley father Malignant neoplasm Unknown Hypertension Unknown Diabetes mellitus Unknown mother Hypertension Unknown Advance Directives No Advanced Directives Records Found Advance Directive Response Recorded Date/ Time Name of Medical Power of Hide Or Skin Buffer SISTERS April 02, 2022 11:48am Living Will No April 02, 2022 11:48am Power of Hide Or Skin Buffer Yes April 02 11:48am Advance Directive Response Recorded Date/ Time Name of Medical Power of Hide Or Skin Buffer FAMILY May 01, 2023 1:16pm Living Will Yes May 01, 2023 1:16pm Power of Hide Or Skin Buffer Yes May 01 1:16pm Summary Purpose Reason for Referral Specialty Diagnoses / Procedures Referred By Mahi barboza Referred To Contact Urology Diagnoses Elevated PSA Abnormal ultrasound Procedures CONSULT TO UROLOGY OFFICE/OUTPATIENT [facility] 60-74 MINUTES Tung Aguilar MD [address] [place] [address] Referral ID Status Reason Start Date Expiration Date Visits Requested Visits Authorized [id number] Pending Review PCP Requested Referral 08/14/2022 08/14/2023 1 1 Specialty Diagnoses / Procedures Referred By Mahi barboza Referred To Contact Diagnoses Gastric bezoar, initial encounter Pre-op exam Procedures REFER TO PACC - PRE ANESTHESIA CONSULTATION CLINIC OFFICE/OUTPATIENT [facility] 60-[place] [address] [place] [address] Referral ID Status Reason Start Date Expiration Date Visits Requested Visits Authorized [id number] Pending Review PCP Requested Referral 05/30/2023 05/29/2024 1 1 Specialty Diagnoses / Procedures Referred By Contac t Referred [facility] Diagnoses Gastric bezoar, initial encounter Pre-op exam Procedures ECG COMPLETE ECG ROUTINE ECG W/LEAST 12 LDS W/I&[place] [address] [place] [address] [facility] [place] [address] [place] [address] Referral ID Status Reason Start Date Expiration Date Visits Requested Visits Authorized [id number] Authorized Auto-Generat ed Referral 05/30/2023 05/29/2024 1 1 Specialty Diagnoses / Procedures Referred By Contac t Referred To Contact Gastroenterology Diagnoses Screening for colon cancer Procedures CONSULT TO GASTROENTEROLOGY OFFICE/OUTPATIENT [facility] 60 MINUTES Tung Aguilar MD [address] [place] [address] Referral ID Status Reason Start Date Expiration Date Visits Requested Visits Authorized [id number] Authorized PCP Requested Referral 10/23/2024 10/23/2025 1 1 Additional Source Comments Source Comments (unrecognize d section and content) In the event this informatio n is protected by the Federal Confidentiality of Alcohol and Drug Abuse Patient Records regulations: The Federal rules restrict any use of the information to criminally investigate or prosecute any alcohol or drug abuse patient.[facility] the event this information is protected by the Federal Confidentiality of Alcohol and Drug Abuse Patient Records regulations: The Federal rules restrict any use of the information to criminally investigate or prosecute any alcohol or drug abuse patient.[facility] the event this information is protected by the Federal Confidentiality of Alcohol and Drug Abuse Patient Records regulations: The Federal rules restrict any use of the information to criminally investigate or prosecute any alcohol or drug abuse patient.[facility] the event this information is protected by the Federal Confidentiality of Alcohol and Drug Abuse Patient Records regulations: The Federal rules restrict any use of the information to criminally investigate or prosecute any alcohol or drug abuse patient.[facility] the event this information is protected by the Federal Confidentiality of Alcohol and Drug Abuse Patient Records regulations: The Federal rules restrict any use of the information to criminally investigate or prosecute any alcohol or drug abuse patient.[facility] the event this information is protected by the Federal Confidentiality of Alcohol and Drug Abuse Patient Records regulations: The Federal rules restrict any use of the information to criminally investigate or prosecute any alcohol or drug abuse patient.[facility] the event this information is protected by the Federal Confidentiality of Alcohol and Drug Abuse Patient Records regulations: The Federal rules restrict any use of the information to criminally investigate or prosecute any alcohol or drug abuse patient.[facility] the event this information is protected by the Federal Confidentiality of Alcohol and Drug Abuse Patient Records regulations: The Federal rules restrict any use of the information to criminally investigate or prosecute any alcohol or drug abuse patient.[facility] the event this information is protected by the Federal Confidentiality of Alcohol and Drug Abuse Patient Records regulations: The Federal rules restrict any use of the information to criminally investigate or prosecute any alcohol or drug abuse patient.[facility] the event this information is protected by the Federal Confidentiality of Alcohol and Drug Abuse Patient Records regulations: The Federal rules restrict any use of the information to criminally investigate or prosecute any alcohol or drug abuse patient.[facility] the event this information is protected by the Federal Confidentiality of Alcohol and Drug Abuse Patient Records regulations: The Federal rules restrict any use of the information to criminally investigate or prosecute any alcohol or drug abuse patient.[facility] HospitalIn the event this information is protected by the Federal Confidentiality of Alcohol and Drug Abuse Patient Records regulations: The Federal rules restrict any use of the information to criminally investigate or prosecute any alcohol or drug abuse patient.[facility] HospitalIn the event this information is protected by the Federal Confidentiality of Alcohol and Drug Abuse Patient Records regulations: The Federal rules restrict any use of the information to criminally investigate or prosecute any alcohol or drug abuse patient.[facility] HospitalIn the event this information is protected by the Federal Confidentiality of Alcohol and Drug Abuse Patient Records regulations: The Federal rules restrict any use of the information to criminally investigate or prosecute any alcohol or drug abuse patient.[facility] HospitalIn the event this information is protected by the Federal Confidentiality of Alcohol and Drug Abuse Patient Records regulations: The Federal rules restrict any use of the information to criminally investigate or prosecute any alcohol or drug abuse patient.[facility] HospitalIn the event this information is protected by the Federal Confidentiality of Alcohol and Drug Abuse Patient Records regulations: The Federal rules restrict any use of the information to criminally investigate or prosecute any alcohol or drug abuse patient.[facility] HospitalIn the event this information is protected by the Federal Confidentiality of Alcohol and Drug Abuse Patient Records regulations: The Federal rules restrict any use of the information to criminally investigate or prosecute any alcohol or drug abuse patient.[facility] HospitalIn the event this information is protected by the Federal Confidentiality of Alcohol and Drug Abuse Patient Records regulations: The Federal rules restrict any use of the information to criminally investigate or prosecute any alcohol or drug abuse patient.[facility] HospitalIn the event this information is protected by the Federal Confidentiality of Alcohol and Drug Abuse Patient Records regulations: The Federal rules restrict any use of the information to criminally investigate or prosecute any alcohol or drug abuse patient.[facility] HospitalIn the event this information is protected by the Federal Confidentiality of Alcohol and Drug Abuse Patient Records regulations: The Federal rules restrict any use of the information to criminally investigate or prosecute any alcohol or drug abuse patient.[facility] HospitalIn the event this information is protected by the Federal Confidentiality of Alcohol and Drug Abuse Patient Records regulations: The Federal rules restrict any use of the information to criminally investigate or prosecute any alcohol or drug abuse patient.[facility] HospitalIn the event this information is protected by the Federal Confidentiality of Alcohol and Drug Abuse Patient Records regulations: The Federal rules restrict any use of the information to criminally investigate or prosecute any alcohol or drug abuse patient.[facility] HospitalIn the event this information is protected by the Federal Confidentiality of Alcohol and Drug Abuse Patient Records regulations: The Federal rules restrict any use of the information to criminally investigate or prosecute any alcohol or drug abuse patient.[facility] HospitalIn the event this information is protected by the Federal Confidentiality of Alcohol and Drug Abuse Patient Records regulations: The Federal rules restrict any use of the information to criminally investigate or prosecute any alcohol or drug abuse patient.[facility] HospitalIn the event this information is protected by the Federal Confidentiality of Alcohol and Drug Abuse Patient Records regulations: The Federal rules restrict any use of the information to criminally investigate or prosecute any alcohol or drug abuse patient.[facility] HospitalIn the event this information is protected by the Federal Confidentiality of Alcohol and Drug Abuse Patient Records regulations: The Federal rules restrict any use of the information to criminally investigate or prosecute any alcohol or drug abuse patient.[facility] HospitalIn the event this information is protected by the Federal Confidentiality of Alcohol and Drug Abuse Patient Records regulations: The Federal rules restrict any use of the information to criminally investigate or prosecute any alcohol or drug abuse patient.[facility] HospitalIn the event this information is protected by the Federal Confidentiality of Alcohol and Drug Abuse Patient Records regulations: The Federal rules restrict any use of the information to criminally investigate or prosecute any alcohol or drug abuse patient.[facility] HospitalIn the event this information is protected by the Federal Confidentiality of Alcohol and Drug Abuse Patient Records regulations: The Federal rules restrict any use of the information to criminally investigate or prosecute any alcohol or drug abuse patient.[facility] HospitalIn the event this information is protected by the Federal Confidentiality of Alcohol and Drug Abuse Patient Records regulations: The Federal rules restrict any use of the information to criminally investigate or prosecute any alcohol or drug abuse patient.[facility] HospitalIn the event this information is protected by the Federal Confidentiality of Alcohol and Drug Abuse Patient Records regulations: The Federal rules restrict any use of the information to criminally investigate or prosecute any alcohol or drug abuse patient.[facility] HospitalIn the event this information is protected by the Federal Confidentiality of Alcohol and Drug Abuse Patient Records regulations: The Federal rules restrict any use of the information to criminally investigate or prosecute any alcohol or drug abuse patient.[facility] HospitalIn the event this information is protected by the Federal Confidentiality of Alcohol and Drug Abuse Patient Records regulations: The Federal rules restrict any use of the information to criminally investigate or prosecute any alcohol or drug abuse patient.[facility] HospitalIn the event this information is protected by the Federal Confidentiality of Alcohol and Drug Abuse Patient Records regulations: The Federal rules restrict any use of the information to criminally investigate or prosecute any alcohol or drug abuse patient.[facility] HospitalIn the event this information is protected by the Federal Confidentiality of Alcohol and Drug Abuse Patient Records regulations: The Federal rules restrict any use of the information to criminally investigate or prosecute any alcohol or drug abuse patient.[facility] HospitalIn the event this information is protected by the Federal Confidentiality of Alcohol and Drug Abuse Patient Records regulations: The Federal rules restrict any use of the information to criminally investigate or prosecute any alcohol or drug abuse patient.[facility] HospitalIn the event this information is protected by the Federal Confidentiality of Alcohol and Drug Abuse Patient Records regulations: The Federal rules restrict any use of the information to criminally investigate or prosecute any alcohol or drug abuse patient.[facility] HospitalIn the event this information is protected by the Federal Confidentiality of Alcohol and Drug Abuse Patient Records regulations: The Federal rules restrict any use of the information to criminally investigate or prosecute any alcohol or drug abuse patient.[facility] HospitalIn the event this information is protected by the Federal Confidentiality of Alcohol and Drug Abuse Patient Records regulations: The Federal rules restrict any use of the information to criminally investigate or prosecute any alcohol or drug abuse patient.[facility] HospitalIn the event this information is protected by the Federal Confidentiality of Alcohol and Drug Abuse Patient Records regulations: The Federal rules restrict any use of the information to criminally investigate or prosecute any alcohol or drug abuse patient.[facility] HospitalIn the event this information is protected by the Federal Confidentiality of Alcohol and Drug Abuse Patient Records regulations: The Federal rules restrict any use of the information to criminally investigate or prosecute any alcohol or drug abuse patient.[facility] HospitalIn the event this information is protected by the Federal Confidentiality of Alcohol and Drug Abuse Patient Records regulations: The Federal rules restrict any use of the information to criminally investigate or prosecute any alcohol or drug abuse patient.[facility] HospitalIn the event this information is protected by the Federal Confidentiality of Alcohol and Drug Abuse Patient Records regulations: The Federal rules restrict any use of the information to criminally investigate or prosecute any alcohol or drug abuse patient.[facility] HospitalIn the event this information is protected by the Federal Confidentiality of Alcohol and Drug Abuse Patient Records regulations: The Federal rules restrict any use of the information to criminally investigate or prosecute any alcohol or drug abuse patient.[facility] HospitalIn the event this information is protected by the Federal Confidentiality of Alcohol and Drug Abuse Patient Records regulations: The Federal rules restrict any use of the information to criminally investigate or prosecute any alcohol or drug abuse patient.[facility] Care Teams (unrecognized sec tion and content) Accounts Supervisor Relationship Specialty Start Date End Date Tung Aguilar MD [address] [place] [address] PCP - General Family Practice 04/07/18 Accounts Supervisor Relationship Specialty Start Date End Date Tung Aguilar MD [address] [place] [address] PCP - General Family Practice 04/07/18 Accounts Supervisor Relationship Specialty Start Date End Date Tung Aguilar MD [address] [place] [address] PCP - General Family Practice 04/07/18 Accounts Supervisor Relationship Specialty Start Date End Date Tung Aguilar MD [address] [place] [address] PCP - General Family Practice 04/07/18 Accounts Supervisor Relationship Specialty Start Date End Date Tung Aguilar MD [address] [place] [address] PCP - General Family Practice 04/07/18 Accounts Supervisor Relationship Specialty Start Date End Date Tung Aguilar MD [address] [place] [address] PCP - General Family Medicine 04/07/18 Accounts Supervisor Relationship Specialty Start Date End Date Tung Aguilar MD [address] [facility] [place] [address] PCP - General Family Medicine 04/07/18 Accounts Supervisor Relationship Specialty Start Date End Date Tung Aguilar MD [address] [facility] [place] [address] PCP - General Family Medicine 04/07/18 Accounts Supervisor Relationship Specialty Start Date End Date Tung Aguilar MD [address] [facility] [place] [address] PCP - General Family Medicine 04/07/18 Accounts Supervisor Relationship Specialty Start Date End Date Tung Aguilar MD [address] [facility] [place] [address] PCP - General Family Medicine 04/07/18 Accounts Supervisor Relationship Specialty Start Date End Date Tung Aguilar MD [address] [facility] [place] [address] PCP - General Family Medicine 04/07/18 Accounts Supervisor Relationship Specialty Start Date End Date Tung Aguilar MD [address] [facility] [place] [address] PCP - General Family Medicine 04/07/18 Accounts Supervisor Relationship Specialty Start Date End Date Tung Aguilar MD [address] [facility] [place] [address] PCP - General Family Medicine 04/07/18 Accounts Supervisor Relationship Specialty Start Date End Date Tung Aguilar MD [address] [facility] [place] [address] PCP - General Family Medicine 04/07/18 Accounts Supervisor Relationship Specialty Start Date End Date Tung Aguilar MD [address] [facility] [place] [address] PCP - General Family Medicine 04/07/18 Accounts Supervisor Relationship Specialty Start Date End Date Tung Aguilar MD [address] [place] [place], [place] [address] PCP - General Family Medicine 04/07/18 Accounts Supervisor Relationship Specialty Start Date End Date Tung Aguilar MD [address] [place] [place], [place] [address] PCP - General Family Medicine 04/07/18 Team Status: Active Member Role Status Dates Dr. Tung Aguilar MD Primary Care Provider Active Team Status: Inactive Member Role Status Dates Dr. Tung Aguilar MD Primary Care Provider, Referring Provider Active Griselda Ann ACCOUNTS RECEIVABLE SUPERVISOR, ACCOUNTS RECEIVABLE SUPERVISOR-C Attending Provider Active Team Status: Active Member Role Status Dates Dr. Tung Aguilar MD Primary Care Provider, Referring Provider Active Dr. David Barraza DO Attending Provider, Other Prov ider Active Team Status: Inactive Member Role Status Dates Dr. Tung Aguilar MD Primary Care Provider, Referring Provider Active Dr. David Barraza DO Attending Provider Active Accounts Supervisor Relationship Specialty Start Date End Date Tung Aguilar MD [address] [place] [place], [place] [address] PCP - General Family Medicine 04/07/18 Accounts Supervisor Relationship Specialty Start Date End Date Tung Aguilar MD [address] [place] [place], [place] [address] PCP - General Family Medicine 04/07/18 Accounts Supervisor Relationship Specialty Start Date End Date Tung Aguilar MD [address] [place] [place], [place] [id number] PCP - General Family Medicine 04/07/18 Accounts Supervisor Relationship Specialty Start Date End Date Tung Aguilar MD [address] [place] [place], [place] [id number] PCP - General Family Medicine 04/07/18 Accounts Supervisor Relationship Specialty Start Date End Date Tung Aguilar MD [address] [place] [address] PCP - General Family Medicine 04/07/18 Accounts Supervisor Relationship Specialty Start Date End Date Tung Aguilar MD [address] [place] [address] PCP - General Family Medicine 04/07/18 Accounts Supervisor Relationship Specialty Start Date End Date Tung Aguilar MD [address] [place] [address] PCP - General Family Medicine 04/07/18 Accounts Supervisor Relationship Specialty Start Date End Date Tung Aguilar MD [address] [place] [address] PCP - General Family Medicine 04/07/18 Accounts Supervisor Relationship Specialty Start Date End Date Tung Aguilar MD [address] [place] [address] PCP - General Family Medicine 04/07/18 Accounts Supervisor Relationship Specialty Start Date End Date Tung Aguilar MD [address] [place] [address] PCP - General Family Medicine 04/07/18 Accounts Supervisor Relationship Specialty Start Date End Date Tung Aguilar MD [address] [place], [place] [address] PCP - General Family Medicine 04/07/18 Accounts Supervisor Relationship Specialty Start Date End Date Tung Aguilar MD [address] [place] [address] PCP - General Family Medicine 04/07/18 Accounts Supervisor Relationship Specialty Start Date End Date Tung Aguilar MD [address] [place] [place], [place] [address] PCP - General Family Medicine 04/07/18 Accounts Supervisor Relationship Specialty Start Date End Date Tung Aguilar MD [address] [place], [place] [address] PCP - General Family Medicine 04/07/18 Accounts Supervisor Relationship Specialty Start Date End Date Tung Aguilar MD [address] [place] [address] PCP - General Family Medicine 04/07/18 Accounts Supervisor Relationship Specialty Start Date End Date Tung Aguilar MD [address] [place] [address] PCP - General Family Medicine 04/07/18 Accounts Supervisor Relationship Specialty Start Date End Date Tung Aguilar MD [address] [place] [address] PCP - General Family Medicine 04/07/18 Leticia Jasso, TRINY.GERIATRIC SOCIAL WORKER [address] [place] [address] Sound Effects Technician Family Medicine 09/13/24 Alicia Chen AIRLINE CUSTOMER SERVICE AGENT.GERIATRIC SOCIAL WORKER [address] [place] [place], [place] [address] Sound Effects Technician Family Medicine 09/13/24 Accounts Supervisor Relationship Specialty Start Date End Date Tung Aguilar MD [address] [place], [place] [address] PCP - General Family Medicine 04/07/18 Leticia Jasso AIRLINE CUSTOMER SERVICE AGENT.GERIATRIC SOCIAL WORKER [address] [place] [address] Sound Effects Techn[address] Family [facility] 09/13/24 Alicia Chen AIRLINE CUSTOMER SERVICE AGENT.GERIATRIC SOCIAL WORKER [address] [place] [address] [facility] Accounts Supervisor Relationship Specialty Start Date End Date Tung Aguilar MD [address] [place] [address] PCP - General Family Medicine 04/07/18 Leticia Jasso AIRLINE CUSTOMER SERVICE AGENT.GERIATRIC SOCIAL WORKER [address] [place] [address] [facility]/13/24 Alicia Chen AIRLINE CUSTOMER SERVICE AGENT.GERIATRIC SOCIAL WORKER [address] [place] [address] [facility] 09/13/24 Accounts Supervisor Relationship Specialty Start Date End Date Tung Aguilar MD [address] [place] [address] PCP - General Family Medicine 04/07/18 Leticia Jasso AIRLINE CUSTOMER SERVICE AGENT.GERIATRIC SOCIAL WORKER [address] [place] [address] [facility] Medicine 09/13/24 Alicia Chen AIRLINE CUSTOMER SERVICE AGENT.GERIATRIC SOCIAL WORKER [address] [place] [address] [facility] 09/13/24 Accounts Supervisor Relationship Specialty Start Date End Date Tung Aguilar MD [address] [place], [place] [address] PCP - General Family Medicine 04/07/18 Leticia Jasso, AIRLINE CUSTOMER SERVICE AGENT.GERIATRIC SOCIAL WORKER [address] [place], [place] [address] [facility] 09/13/24 Alicia Chen, AIRLINE CUSTOMER SERVICE AGENT.GERIATRIC SOCIAL WORKER [address] [place], [place] [address] [facility] 09/13/24 Accounts Supervisor Relationship Specialty Start Date End Date Tung Aguilar MD [address] [place], [place] [address] PCP - General [facility] Medicine 04/07/18 Leticia Jasso, AIRLINE CUSTOMER SERVICE AGENT.GERIATRIC SOCIAL WORKER [address] [place], [place] [address] [facility] 09/13/24 Alicia Chen, AIRLINE CUSTOMER SERVICE AGENT.GERIATRIC SOCIAL WORKER [address] [place], [place] [address] [facility] 09/13/24 Reason for Visit (unrecogniz ed section and content) Reason Comments Follow Up Specialty Diagnoses / Procedures Referred By Contmonster t Referred To Contact Nephrology Diagnoses Kidney replaced by transplant Procedures CONSULT TO NEPHROLOGY NEW PATIENT VISIT LEVEL 5 Tung Aguilar MD [address] [place] [address] Referral ID Status Reason Start Date Expiration Date V isits Requested Visits Authorized [id number] Closed PCP Requested Referral 10/16/2021 10/16/2022 1 1 Reason Comments Follow Up 6 month Reason Comments Refill Request Reason Comments Follow Up Reason Comments Results Appointment Reason Onset Date Comments Population Health Navigation Outreach 09/11/2022 [facility] PCSA Reason Comments PSA Specialty Diagnoses / Procedures Referred By Contac t Referred To Contact Urology Diagnoses Elevated PSA Abnormal ultrasound Procedures CONSULT TO UROLOGY OFFICE/OUTPATIENT NEW HIGH MDM 60-74 MINUTES Tung Aguilar MD [address] [place] [address] Referral ID Status Reason Start Date Expiration Date Visits Requested Visits Authorized [id number] Pending Review PCP Requested Referral 08/14/2022 08/14/2023 1 1 Reason Comments Results Reason Comments 6 Month Exam Reason Comments Med Change Request Reason Onset Date Comments Population Health [facility] Outreach 12/30/2022 [facility] Care Gaps Reason Comments 06/04/23 Reason Comments Pre-Op Teaching Reason Comments New Patient Reason Comments Pre-Op Exam Specialty Diagnoses / Procedures Referred By Contac t Referred To Contact [facility] Diagnoses Gastric bezoar, initial encounter Pre-op exam Procedures ECG COMPLETE ECG ROUTINE ECG W/LEAST 12 LDS W/I&[place] [address] [place] [address] [facility] [place] [address] [place] [address] Referral ID Status Reason Start Date Expiration Date V isits Requested Visits Authorized [id number] Closed Auto-Generate d Referral 05/30/2023 05/29/2024 1 1 Reason Comments Post Op Reason Onset Date Comments Refill Request 08/12/2023 Reason Onset Date Comments Population Health [facility] Outreach 08/14/2023 ACO CARE GAP Reason Comments Radiology NM Specialty Diagnoses / Procedures Referred By Contac t Referred To Contact [facility] Diagnoses Gastroparesis Procedures NM GASTRIC EMPTYING SOLID GASTRIC [place] [address] [place] [address] [facility] [address] [place] [address] Referral ID Status Reason Start Date Expiration Date V isits Requested Visits Authorized [id number] Closed Auto-Generate d Referral 12/19/2023 07/19/2024 1 1 Reason Comments Post Op Reason Comments Rash Ringworm LEFT forear m x 2 days Reason Comments Recheck Follow up UC- L arm rash Reason Onset Date Comments Refill Request 09/08/2024 Reason Comments Results Reason Onset Date Comments Population Health Navigation Outreach 03/10/2025 [employer] [place] (unrecognized sect ion and content) No Status Records FoundNo Status Records FoundNo Status Records FoundNo Status Records FoundNo Status Records Found INFORMATION SOURCE (unrecogn ized section and content) DATE CREATED AUTHOR [facility] DATE CREATED AUTHOR AUTHOR'S ORGANIZ ATION 12/12/2022 [facility] DATE CREATED AUTHOR AUTHOR'S ORGANIZ ATION 06/02/2023 [facility] DATE CREATED AUTHOR AUTHOR'S ORGANIZ ATION 07/14/2023 [facility] DATE CREATED AUTHOR AUTHOR'S ORGANIZ ATION 08/03/2025 [facility] FOR RECORDS PERTAINING TO PATIENTS WHO ARE OR HAVE BEEN ENROLLED IN A CHEMICAL DEPENDENCY/SUBSTANCEABUSE PROGRAM, SOME INFORMATION MAY BE OMITTED. This clinical summary was aggregated from multiple sources. Caution should be exercised in using it in the provision of clinical care. This summary normalizes information from multiple sources, and as a consequence, information in this document may materially change the coding, format and clinical context of patient data. In addition, data may be omitted in some cases. CLINICAL DECISIONS SHOULD BE BASED ON THE PRIMARY CLINICAL RECORDS. [facility] [employer] [facility]. provides no warranty or guarantee of the accuracy or completeness of information in this document.
[2025-08-04 22:07] VITALS: BP 103/55; PULSE 99; RESP 14; O2SAT 98
[2025-08-04] MEDS: 0.9% Normal Saline (1000mL) 1,000 ML 999 ML IV (22:22)
[2025-08-04] MEDS: fentaNYL 100 MCG/2 ML Ampul 50 MCG IV (22:23)
[2025-08-04] MEDS: DiphenhydrAMINE 50 MG/ML Syringe 25 MG IV (22:23)
[2025-08-04 22:25] LABS: Hematocrit 32.8 % (40-54); Hemoglobin 10.3 g/dL (13.0-16.5); Immature Granulocytes Count 0.070 X10^3/uL (0.0-0.0); Mean Corp Hgb Conc 31.4 g/dL (32-36); Mean Corpuscular Volume 69.5 fL (80-94); Mean Platelet Vol. 9.8 fl (6.2-12.0); NRBC Flagged by Analyzer 0 % (0-5); Platelet Count 220 K/mm3 (150-450); RBC Distribution Width CV 15.2 % (11.6-14.6); RBC Distribution Width SD 37.9 fl (35.1-43.9); Red Blood Count 4.72 M/mm3 (4.6-6.2); White Blood Count 8.4 K/mm3 (4.4-11.0)
[2025-08-04 22:30] VITALS: BP 141/73; PULSE 98; RESP 18; O2SAT 98
[2025-08-04 22:36] LABS: Mucous, Urine 0 SEEN /hpf (<or=2+); Red Blood Cells-Urine 0 SEEN /hpf (0-5)
[2025-08-04 22:39] LABS: Color, Urine Straw (Yellow); Glucose, Dipstick Normal (Normal); Ketone-Dipstick Negative (Negative); Leukocyte Esterase-Dipstick Negative /ul (Negative); Nitrite-Dipstick Negative (Negative); Occult Blood-Urine Negative /ul (Negative); Protein-Dipstick 15 mg/dl (Negative); Specific Gravity, Urine 1.005 (1.002-1.030); Urine Bilirubin Dipstick Negative (Negative)
[2025-08-04 23:04] LABS: Squamous Epithelial Cells - UA 0-5 SEEN /hpf (0-5)
[2025-08-04 23:07] LABS: AST(SGOT) 24 U/L (<=37); Alanine Aminotransfer ALT/SGPT 10 U/L (<=46); Albumin, Serum 3.3 g/dL (3.4-4.8); Alkaline Phosphatase 87 U/L (40-129); Anion Gap 11 (5-15); BUN 8 mg/dL (4-19); BUN/Creat Ratio 9.1 RATIO (10-20); Calcium,Total 8.4 mg/dL (7.6-11.0); Carbon Dioxide 23.5 mmol/L (21.0-32.0); Chloride 97 mmol/L (98-108); Estimated Creatinine Clearance 85.39 ml/min (50-250); Globulin 2.5 g/dL (2.2-4.2); Glucose 153 mg/dL (70-99); Potassium 3.6 mmol/L (3.3-5.1)
[2025-08-04 23:37] LABS: Lipase 14 U/L (13-75)
[2025-08-04 23:53] VITALS: BP 145/63; PULSE 89; RESP 16; O2SAT 96
[2025-08-04 23:57] LABS: Amylase 15 U/L (28-100)
[2025-08-05] VITALS (7 sets, daily range): BP systolic 119–168; BP diastolic 55–76; PULSE 66–89; RESP 16–18; TEMP 36.2–37.1; O2SAT 95–98; BMI 26.2; BMI 26.3
--- NOTE | 2025-08-05 00:37 | ED.RN ---
0025: PHARMACY CALLED FOR PROTONIX NOT IN DEPARTMENT. RESPONSE, "WE WILL SEND IT"
[2025-08-05] MEDS: Pantoprazole Sodium 80 MG in 0.9% Normal Saline (50mL Bag) 15 ML 420 MG IV BOLUS (00:42)
--- NOTE | 2025-08-05 00:51 | PCM.HP.STD ---
HPI - General General Date of Admission: 08/05/25 Date of Service: 08/05/25 Chief Complaint: Abdominal pain, dark stools. HPI Narrative The patient is a 59 y/o M w/ PMHx: GERD, HTN, HLD, Hx ESRD s/p renal/pancreatic transplant 2007, Hx IDDM s/p pancreatic transplant, Chronic anemia/Fe deficiency anemia who presents to the [facility] ED on 08/05/25 with history of abdominal pain primarily L sided with associated nausea without emesis over the last week with onset dark stools on evening of presentation prompting eventual ED evaluation. Per [facility] records 07/28/25 Hgb 12.5 and prior to this 14.9 ~ 5 months previous. Patient currently reporting his left lower abdominal quadrant discomfort is 8 out of 10 in severity, previous to this prior to ED pain medications noted it was 9 out of 10 in severity. Workup in the ED included T98.9, heart rate 110, BP initially 99/48, respiratory rate 20, 96% on room air with most recent repeat vitals T98.2, heart rate 89, BP 120/58, respiratory rate 16, 96% on room air, CBC with WBC 8.4, hemoglobin 10.3, MCV 69.5, platelet 220 without marked shift, CMP with sodium 132, chloride 97, glucose 153, hepatic profile not marked appearing, urinalysis unremarkable, type and screen initiated per ED, CT abdomen and pelvis obtained however not resulted upon request evaluation of patient. In the ED patient ministered 1 L normal saline, Protonix 80 mg IV bolus, Zofran 4 mg IV x 1, fentanyl 50 mcg IV x 1 in addition to Solu-Medrol 125 mg IV x 1 and Benadryl 25 mg IV x 1 for planned contrast usage with the CT however patient eventually declined and only CT without contrast was obtained. [facility] Medical History History of renal disease Gastric reflux Wears glasses Diabetes History of renal dialysis Non-smoker Leg cramps Hypertension History of Holter monitoring Amputation of left hand Cataracts, bilateral GERD (gastroesophageal reflux disease) ESRD (end stage renal disease) History of end stage renal disease Home Medications Medication Instructions Recorded Last Taken Type mycophenolate mofetil 500 mg tablet 500 mg PO BID ANTIREJECTION 07/09/20 07/29/22 History tacrolimus 1 mg capsule, 2 mg PO DAILY@2000 antirejection 07/10/20 04/04/22 History immediate-release med tacrolimus 1 mg capsule, 3 mg PO DAILY@0800 anitrejection 07/10/20 07/29/22 History immediate-release med ferrous sulfate 325 mg (65 mg 325 mg PO BID 08/05/25 Unknown History iron) tablet Allergy/AdvReac Type Severity Reaction Status Date / Time iodine Allergy Intermediate Rash Verified 08/04/25 21:02 doxazosin AdvReac Rash Verified 08/04/25 21:02 doxycycline AdvReac Rash Verified 08/04/25 21:02 Penicillins AdvReac Rash Verified 08/04/25 21:02 Family History Father Cancer Hypertension Diabetes Mother Hypertension Diabetes Surgical History History of amputation of left hand History of esophagogastroduodenoscopy (EGD) Hx of arteriovenostomy for renal dialysis Hx of colonoscopy Hx of foot surgery Pancreas transplanted Kidney transplant recipient Social History household members: none Smoking Status: Never smoker alcohol intake: never substance use type: does not use ROS ROS Narrative Admission Review of Systems: CONSTITUTIONAL: No weight loss, fever, chills, + weakness or fatigue. HEENT: Eyes: No visual loss, blurred vision, double vision or yellow sclerae. Ears, Nose, Throat: No hearing loss, sneezing, congestion, runny nose or sore throat. SKIN: No rash or itching, lesions, wounds. CARDIOVASCULAR: No chest pain, chest pressure or chest discomfort, palpitations, edema, orthopnea, syncopal events. RESPIRATORY: No shortness of breath, cough or sputum, wheezing, hemoptysis. GASTROINTESTINAL: + anorexia, nausea without vomiting, dark stools, abdominal pain. No constipation, diarrhea, melena, BRBPR. GENITOURINARY: No dysuria, frequency, urgency or retention. NEUROLOGICAL: No headache, dizziness, syncope, paralysis, ataxia, numbness or tingling in the extremities, focal weakness, change in bowel or bladder control, seizure. MUSCULOSKELETAL: + muscle, back pain, joint pain or stiffness. HEMATOLOGIC: + Chronic anemia, acute on chronic with current presentation, current active bleeding concerns as noted. LYMPHATICS: No enlarged nodes. No history of splenectomy. PSYCHIATRIC: No history of depression or anxiety. ENDOCRINOLOGIC: No reports of sweating, cold or heat intolerance. No polyuria or polydipsia. ALLERGIES: No history of asthma, hives, eczema or rhinitis. Vital Signs Vital Signs Vital Signs: 08/04/25 21:02 08/04/25 22:07 08/04/25 22:30 Temperature 98.9 F Temperature Source Oral Pulse Rate 110 H 99 98 Respiratory Rate 20 H 14 18 Blood Pressure 99/48 L 103/55 L 141/73 H Blood Pressure Mean 65 71 95 Pulse Ox 96 98 98 Oxygen Delivery Method Room Air Room Air Room Air 08/04/25 23:53 08/05/25 00:00 Temperature 98.2 F Temperature Source Pulse Rate 89 89 Respiratory Rate 16 16 Blood Pressure 145/63 H 128/58 H Blood Pressure Mean 90 81 Pulse Ox 96 96 Oxygen Delivery Method Room Air Weight Weight: 183 lb 14.4 oz Body Mass Index (BMI) 27.1 Physical Exam Narrative Physical Examination: General: Awake, alert, oriented x 3 and cooperative, seated upright in bed in no apparent distress. Skin: Normal color, normal turgor, no icterus, no cyanosis except occasional stage ecchymoses, abrasion. HEENT: AT/NC, EOMI, PERRLA, MMM, no carotid bruits or JVD noted. Lungs: CTA bilaterally, moderate effort, mild decrease BL bases, no rales, ronchi or wheezing. Heart: Regular rate and rhythm; no gallop, rub audible. Abdomen: Soft, no specific pain elicited with palpation of the entire abdomen including the left lower quadrant and left side however patient is still reporting 8 out of 10 in severity pain, no marked distention, hyperactive BS, no appreciated HSM. Extremities: No cyanosis, no clubbing, no significant peripheral edema, status post left upper extremity distal amputation evident. Neurological: Patient awake, alert, oriented as noted, cognitive function intact; pupils equally reactive to light and accommodation, cranial nerves grossly normal, moving all 4 extremities, no focal deficits, strength mildly to moderately globally decreased. Psychiatric: Affect appears fatigued otherwise normal, no acute evidence of depressive or anxiety feelings. Results Lab / Micro Data 08/04/25 22:10 08/04/25 22:10 Labs: Laboratory Results - last 24 hr 08/04/25 22:10: WBC 8.4, RBC 4.72, Hgb 10.3 L, Hct 32.8 L, MCV 69.5 L, MCH 21.8 L, MCHC 31.4 L, RDW Std Deviation 37.9, RDW Coeff of [place] 15.2 H, Plt Count 220, MPV 9.8, Immature Gran % (Auto) 0.800, Neut % (Auto) 69.1, Lymph % (Auto) 18.9 L, [place] % (Auto) 9.3, Eos % (Auto) 1.2, Baso % (Auto) 0.7, Absolute Neuts (auto) 5.8, Absolute Lymphs (auto) 1.58, Nucleated RBC % 0, Sodium 132 L, Potassium 3.6, Chloride 97 L, Carbon Dioxide 23.5, Anion Gap 11, BUN 8, Creatinine 0.92, Estim Creat Clear Calc 85.39, Est GFR (MDRD) Non-Af 95, BUN/Creatinine Ratio 9.1 L, Glucose 153 H, Calcium 8.4, Total Bilirubin 0.36, AST 24, ALT 10, Alkaline Phosphatase 87, Total Protein 5.9, Albumin 3.3 L, Globulin 2.5, Albumin/Globulin Ratio 1.3, Amylase Cancelled 08/04/25 22:10: Amylase 15 L, Lipase 14, Blood Type O POSITIVE, Antibody Screen NEGATIVE 08/04/25 22:21: Urine Color Straw, Urine Clarity Clear, Urine pH 6.5, Ur Specific [place] 1.005, Urine Protein 15 H, Urine Glucose (UA) Normal, Urine Ketones Negative, Urine Occult Blood Negative, Urine Nitrite Negative, Urine Bilirubin Negative, Urine Urobilinogen Normal, Ur Leukocyte Esterase Negative, Urine RBC 0 SEEN, Urine WBC 0-5 SEEN, Ur Squamous Epith Cells 0-5 SEEN, Urine Bacteria RARE, Urine Mucus 0 SEEN Assessment & Plan Assessment/Plan (1) GI bleed: (2) Anemia: PLAN: Plan The patient is a 59 y/o M w/ PMHx: GERD, HTN, HLD, Hx ESRD s/p renal/pancreatic transplant 2007, Hx IDDM s/p pancreatic transplant, Chronic anemia/Fe deficiency anemia who presents to the [facility] ED on 10/31/25 with history of abdominal pain primarily L sided with associated nausea without emesis over the last week with onset dark stools on evening of presentation prompting eventual ED evaluation. #1. Acute GI Bleed w/ resultant Acute Blood Loss Anemia on chronic anemia/iron deficiency anemia: Awaiting CT abdomen and pelvis results and as long as there is no concerning findings that would require transfer, once results are obtained, would plan to admit to [facility] given stable vital signs, maintain on IVFs, will obtain serial H+H assessments, will maintain on continuous IV PPI, will maintain n.p.o. status with requested GI consultation and prep for potentially upper and lower given stool in the ED was not concerning appearing on initial examination per ED physician but has had persistent loss and stools are dark baseline given iron supplementation. He also reports that he is due for a colonoscopy in September. #2. History IDDM status post previous pancreatic transplant with hyperglycemia: Admission glucose 153, not on any diabetic regimen currently, previous diabetic status post transplant of pancreas and kidney as noted, will obtain hemoglobin A1c to be cautious. #3. History ESRD status post renal/pancreatic transplant: Status post transplant 2007, will continue patient on tacrolimus and mycophenolate regimen, encourage continued follow-up with transplant team, encouraged patient to update them about current presentation in addition. #4. Hypertension: Noted in chart history, per current list does not appear to be on regimen but clarified to be certain, as needed hydralazine in the interim. #5. Hyperlipidemia: Noted in chart history, not on regimen, clarified to be certain. #6. GERD: Maintained on continuous Ibuprin tonics as noted above. #7. DVT prophylaxis: SCDs. Charges/Coding Visit Charges Inpatient E&M: 05419 Init Hosp L3
--- OUTSIDE RECORDS SUMMARY | 2025-08-05 01:12 | XMS RPT_ITS | CCD ---
Author Organization [facility] Care Team Providers Care Charge Accounts Audit Clerk Name Role Phone Tung Aguilar MD Primary Care Provider Dr. Tung Aguilar Primary Care Provider Dr. Tung Aguilar Referring Provider FriendDr. Hernandez Attending Provider [phone] FriendDr. Hernandez Other Provider [phone] Seth DOOR AND ARRIVAL ATTENDANT, DOOR AND ARRIVAL ATTENDANT-C Griselda Bearden Attending Provider [phone] Tung Aguilar MD Primary Care Provider Tung Aguilar MD Primary Care Provider LESLI ALMANZA Referring Unavailable TUNG AGUILAR Primary Care Unavailable Tung Aguilar MD Primary Care Provider ISHA COLEMAN Attending Unavailabl TUNG Garces Referring Unavailable TUNG AGUILAR Primary Care Unavailable ISHA COLEMAN Attending Unavailabl TUNG Garces Primary Care Unavailable Dr. Tung Aguilar Primary Care Provider Dr. Tung Aguilar Referring Provider Seth DOOR AND ARRIVAL ATTENDANT, DOOR AND ARRIVAL ATTENDANT-C Griselda Bearden Attending Provider [phone] FriendDr. Hernandez Attending Provider [phone] FriendDr. Hernandez Other Provider [phone] SANDRINE JULIEN Referring Unavailable TUNG AGUILAR Primary Care Unavailable Tung Aguilar Primary Care Unavailable David Barraza Attending Unavailable Tung Aguilar Referring Unavailable David Barraza Attending Unavailable Tung Aguilar Referring Unavailable Tung Aguilar Primary Care Unavailable FriendDavid Consulting Unavailable [place], Tung Primary Care Unavailable Friend, David Attending Unavailable Lauren, Tung Referring Unavailable Friend, David Attending Unavailable Friend, David Consulting Unavailable [place], Tung Referring Unavailable Lauren, Tung Primary Care Unavailable [place], Tung Primary Care Unavailable Friend, David Attending Unavailable Lauren, Tung Referring Unavailable [place], Tung Primary Care Unavailable Friend, David Attending Unavailable Lauren, Tung Referring Unavailable Lauren, Tung Primary Care Unavailable [place], Tung Referring Unavailable Seth DOOR AND ARRIVAL ATTENDANT, Griselda Bearden Attending Unavailable Lauren Tung POTTS Primary Care Provider Haagen ALODIZE MACHINE HELPER.SHINGLE INSPECTOR Leticia Unavailable Suppan ALODIZE MACHINE HELPER.SHINGLE INSPECTOR, Alicia A Unavailable [phone] Suppan ALODIZE MACHINE HELPER.SHINGLE INSPECTOR, Alicia A Unavailable TUNG AGUILAR Attending Unavailable [...] Translations: [DOXAZOSIN] Drug Allergy 6 GI Upset [facility] Work Phone: (20 sources) Doxycycline; Translations: [DOXYCYCLINE] Drug Allergy 0 [facility] (9 sources) Penicillins; Translations: [PENICILLINS] Propensity to adverse reactions 3 [facility] (3 sources) Iodine Drug Allergy 2 [facility] (20 sources) Penicillins Propensity to adverse reactions 3 [facility] (1 source) Penicillins Propensity to adverse reactions 3 Rash [facility] (1 source) Doxazosin Drug Allergy 3 [facility] (1 source) Doxycycline Drug Allergy 3 [facility] (1 source) Iodine Drug Allergy 3 [facility] (1 source) Penicillins Drug allergy (disorder) 3 [facility] (5 sources) Penicillins Propensity to adverse reactions 3 [facility] Medications Current Medications Medication Drug Class(es) Dates [...] 2020 12:00am August 02, 2020 1:51pm amylase 457234 unt / lipase 23068 unt / protease [id number] unt delayed release oral capsule (20 sources) [...] by mouth daily TAKE 1 CAPSULE BY [facility] DAILY BEFORE BREAKFAST. 1/2 HR BEFORE MEAL. 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 Intermediate Project Manager: TC Transcribe Date/Time: Aug 03 2025 8:38A Dictated by : VALDO RUCKER MD This examination was interpreted and the report reviewed and electronically signed by: VALDO RUCKER MD on Aug 03 2025 8:49AM EST [id number] Normal [facility] CNOVon 08-02-2025 CNOV Office Visit (FAMPWS ) HOMAR FALLON ([id number]) 1965 M Date Time Provider Department 08/02/25 8:40 AM [facility] your visit today, we recorded the following information about you: Pulse Blood pressure Weight 96/minute 148/50 80.3 kg Alicia Chen APRN.SHINGLE INSPECTOR 08/02/2025 10:13 AM Addendum This is a [...] PAST MEDICAL HISTORY Diagnosis Date Acute pancreatitis ([facility]) 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 Normal [facility] [id number] 08-02-2025 ECG01 Ventricular Rate : 9 2 BPM Atrial Rate : 92 BPM P-R Interval : 114 ms QRS Duration : 74 ms Q-T Interval : 352 ms QTC Calculation(Bazett) : 435 ms Calculated P [place] : 9 degrees Calculated R [place] : 21 degrees Calculated T [place] : 30 degrees NORMAL SINUS RHYTHM NORMAL ECG Confirmed by NITHYA DAIGLE MD ([id number]) on 08/03/2025 10:49:51 AM NAME : HOMAR FALLON PID : [id number] : 1965 Gender : Male Race : ORD : Procedure Date : Aug 02 2025 09:20:25 Edit Date : Aug 03 2025 10:50:01 Diagnosis: NORMAL SINUS RHYTHM NORMAL ECG Confirmed by NITHYA DAIGLE MD ([id number]) on 08/03/2025 10:49:51 AM Test Reason : Location : 185 : [facility] Overread By : NITHYA DAIGLE MD Edited By : NITHYA DAIGLE MD Referred By : MEHRAN URRUTIA Acquired by : Joanne Ragsdale [facility] XR CHEST 2V FRONTAL/LATon XR CHEST [...] tissues: Unremarkable. IMPRESSION: No acute radiographic abnormality. Intermediate Project Manager: PSCB Transcribe Date/Time: Aug 02 2025 10:10A Dictated by : HOMAR AGUIAR MD This examination was interpreted and the report reviewed and electronically signed by: HOMAR AGUIAR MD on Aug 02 2025 10:10AM EST [id number] Normal [facility] 07-29-2025 [facility] Telephone (FAMWS) HOMAR FALLON ([id number]) 1965 M Date Time Provider Department 07/29/25 TUNG AGUILAR [facility] During your visit today, we recorded the [...] This doctor does not come up in [facility]. Patient was willing to travel farther but [place] was too far and this is only place with sooner appointment. He will call Dr. Haines, another doctor that he saw in [place] and ask if he will see for [...] [D50.9] Order(s):CONSULT TO GASTROENTEROLOGY [9010] Order #: [id number]: 1 FUTURE FERRITIN [SQFERR] Order #: [id number] FUTURE IRON AND TIBC [SQIRON] Order #: [id number] FUTURE COMPLETE BLOOD COUNT AND DIFFERENTIAL [SQCBCDIF] Order #: [id number] FUTURE ferrous sulfate (IRON) 325 mg (65 [...] History o (more content not included)... Normal [facility] ALBUMIN/CREATININE RATIO, UR INEon 07-28-2025 Albumin DL <= 20 mg/L (U) [Mass/Vol] mg/dL Normal [facility] Comment on above: Order Comment: Speci men Type: URINE SPECIMENOrdering Facility: [facility] Address: [address] [place] [address] Performed By: #### U ACR ####[facility] LABCLIA [id number] [place] [address] [place] Albumin/Creatinine (U) [Mass ratio] <12 Normal <30 [facility] Comment on above: Order Comment: Speci men Type: URINE SPECIMENOrdering Facility: [facility] Address: [address] [place] [address] Result Comment: Adul t Male and Female Nephrotic Criteria: <30 mg/g is considered normal to mildly increased 30-300 mg/g is considered moderately increased >300 mg/g is considered severely increased KDIGO. (2013). KDIGO 2012 Clinical Practice Guideline for the Evaluation and Management of Chronic Kidney Disease. Official Journal of the International Society of Nephrology, 3(1), 1-150. Performed By: #### U ACR ####[facility] LABCLIA [id number] [place] [address] [place] Creatinine (U) [Mass/Vol] 103.9 mg/dL Normal 20.0-300.0 [facility] Comment on above: Order Comment: Speci men Type: URINE SPECIMENOrdering Facility: [facility] Address: [address] [place] [address] Performed By: #### U ACR ####[facility] LABCLIA [id number] [place] [address] [place] Bacteria Ur Culton Bacteria identified Cx Nom (U) ORGANISM ID: 1 <10,000 CFU/ml Normal urogenital ana rosa Normal [facility] Comment on above: Performed By: #### 6 30-4 ####[facility] LABCLIA [id number] [place] [address] [place] CBC W Auto Differential pane l (Bld)on 07-28-2025 Basophils (Bld) [#/Vol] 0.03 10*3/uL Normal <0.11 [facility] Comment on above: Order Comment: Speci men Type: BLOOD SPECIMENOrdering Facility: [facility] Address: [address] [place] [address] Performed By: #### 5 7021-8 ####[facility] [id number] [place] [address] [place] Basophils/100 WBC (Bld) 0.4 % Normal [facility] Comment on above: Order Comment: Speci men Type: BLOOD SPECIMENOrdering Facility: [facility] Address: [address] [place] [address] Performed By: #### 5 7021-8 ####[facility] JOELGREGORY [id number] [place] [address] [place] Differential cell count method Nom (Bld) Auto Normal [facility] Comment on above: Order Comment: Speci men Type: BLOOD SPECIMENOrdering Facility: [facility] Address: [address] [place] [address] Performed By: #### 5 7021-8 ####[facility]ERNCVERITO [id number] [place] [address] [place] Eosinophils (Bld) [#/Vol] 0.06 10*3/uL Normal <0.46 [facility] Comment on above: Order Comment: Speci men Type: BLOOD SPECIMENOrdering Facility: [facility] Address: [address] [place] [address] Performed By: #### 5 7021-8 ####[facility]ENTERROSARIO [id number] [place] [address] [place] Eosinophils/100 WBC (Bld) 0.9 % Normal [facility] Comment on above: Order Comment: Speci men Type: BLOOD SPECIMENOrdering Facility: [facility] Address: [address] [place] [address] Performed By: #### 5 7021-8 ####[facility]ENTERNCLIA [id number] [place] [address] [place] Erythrocyte distribution width (RBC) [Ratio] 15.0 % Normal 11.5-15.0 [facility] Comment on above: Order Comment: Speci men Type: BLOOD SPECIMENOrdering Facility: [facility] Address: [address] [place] [address] Performed By: #### 5 7021-8 ####[facility] CENTERFRANKYLIA [id number] [place] [address] [place] Hematocrit (Bld) [Volume fraction] 41.3 % Normal 39.0-51.0 [facility] Comment on above: Order Comment: Speci men Type: BLOOD SPECIMENOrdering Facility: [facility] Address: [address] [place] [address] Performed By: #### 5 7021-8 ####[facility]ENTERJACKIE [id number] [place] [address] [place] Hemoglobin (Bld) [Mass/Vol] 12.5 g/dL Low 13.0-17.0 [facility] Comment on above: Order Comment: Speci men Type: BLOOD SPECIMENOrdering Facility: [facility] Address: [address] [place] [address] Performed By: #### 5 7021-8 ####[facility] [id number] [place] [address] [place] Immature granulocytes (Bld) [#/Vol] 0.03 10*3/uL Normal <0.10 [facility] Comment on above: Order Comment: Speci men Type: BLOOD SPECIMENOrdering Facility: [facility] Address: [address] [place] [address] Performed By: #### 5 7021-8 ####[facility] NASSAUA [id number] [place] [address] [place] Immature granulocytes/100 WBC (Bld) 0.4 % Normal [facility] Comment on above: Order Comment: Speci men Type: BLOOD SPECIMENOrdering Facility: [facility] Address: [address] [place] [address] Performed By: #### 5 7021-8 ####[facility]ENTERNCLI [id number] [place] [address] [place] Lymphocytes (Bld) [#/Vol] 1.21 10*3/uL Normal 1.00-4.00 [facility] Comment on above: Order Comment: Speci men Type: BLOOD SPECIMENOrdering Facility: [facility] Address: [address] [place] [address] Performed By: #### 5 7021-8 ####[facility] [id number] [place] [address] [place] Lymphocytes/100 WBC (Bld) 17.9 % Normal [facility] Comment on above: Order Comment: Speci men Type: BLOOD SPECIMENOrdering Facility: [facility] Address: [address] [place] [address] Performed By: #### 5 7021-8 ####[facility] [id number] [place] [address] [place] MCH (RBC) [Entitic mass] 21.7 pg Low 26.0-34.0 [facility] Comment on above: Order Comment: Speci men Type: BLOOD SPECIMENOrdering Facility: [facility] Address: [address] [place] [address] Performed By: #### 5 7021-8 ####[facility] [id number] [place] [address] [place] MCHC (RBC) [Mass/Vol] 30.3 g/dL Low 30.5-36.0 [facility] Comment on above: Order Comment: Speci men Type: BLOOD SPECIMENOrdering Facility: [facility] Address: [address] [place] [address] Performed By: #### 5 7021-8 ####[facility] [id number] [place] [address] [place] MCV (RBC) [Entitic vol] 71.6 fL Low 80.0-100.0 [facility] Comment on above: Order Comment: Speci men Type: BLOOD SPECIMENOrdering Facility: [facility] Address: [address] [place] [address] Performed By: #### 5 7021-8 ####[facility] LUZLIA [id number] [place] [address] [place] Monocytes (Bld) [#/Vol] 0.43 10*3/uL Normal <0.87 [facility] Comment on above: Order Comment: Speci men Type: BLOOD SPECIMENOrdering Facility: [facility] Address: [address] [place] [address] Performed By: #### 5 7021-8 ####[facility]ENTERLIA [id number] [place] [address] [place] Monocytes/100 WBC (Bld) 6.4 % Normal [facility] Comment on above: Order Comment: Speci men Type: BLOOD SPECIMENOrdering Facility: [facility] Address: [address] [place] [address] Performed By: #### 5 7021-8 ####[facility] CENTERFRANKYLIA [id number] [place] [address] [place] Neutrophils (Bld) [#/Vol] 5.00 10*3/uL Normal 1.45-7.50 [facility] Comment on above: Order Comment: Speci men Type: BLOOD SPECIMENOrdering Facility: [facility] Address: [address] [place] [address] Performed By: #### 5 7021-8 ####[facility] H[facility]PITALWNCLIA [id number] [place] [address] [place] Neutrophils/100 WBC (Bld) 74.0 % Normal [facility] Comment on above: Order Comment: Speci men Type: BLOOD SPECIMENOrdering Facility: [facility] Address: [address] [place] [address] Performed By: #### 5 7021-8 ####[facility]ENTERLIA [id number] [place] [address] [place] Nucleated RBC (Bld) [#/Vol] 10*3/uL Normal <0.01 [facility] Comment on above: Order Comment: Speci men Type: BLOOD SPECIMENOrdering Facility: [facility] Address: [address] [place] [address] Performed By: #### 5 7021-8 ####[facility] [id number] [place] [address] [place] Nucleated RBC/100 WBC (Bld) [Ratio] 0.0 /100 WBC Normal [facility] Comment on above: Order Comment: Speci men Type: BLOOD SPECIMENOrdering Facility: [facility] Address: [address] [place] [address] Performed By: #### 5 7021-8 ####[facility] [id number] [place] [address] [place] Platelet mean volume (Bld) [Entitic vol] 9.8 fL Normal 9.0-12.7 [facility] Comment on above: Order Comment: Speci men Type: BLOOD SPECIMENOrdering Facility: [facility] Address: [address] [place] [address] Performed By: #### 5 7021-8 ####[facility] [id number] [place] [address] [place] Platelets (Bld) [#/Vol] 219 10*3/uL Normal 150-400 [facility] Comment on above: Order Comment: Speci men Type: BLOOD SPECIMENOrdering Facility: [facility] Address: [address] [place] [address] Performed By: #### 5 7021-8 ####[facility]ENTERLI [id number] [place] [address] [place] RBC (Bld) [#/Vol] 5.77 10*6/uL Normal 4.20-6.00 [facility] Comment on above: Order Comment: Speci men Type: BLOOD SPECIMENOrdering Facility: [facility] Address: [address] [place] [address] Performed By: #### 5 7021-8 ####[facility] HOSPITALWNCLIA [id number] [place] [address] [place] WBC (Bld) [#/Vol] 6.76 10*3/uL Normal 3.70-11.00 [facility] Comment on above: Order Comment: Speci men Type: BLOOD SPECIMENOrdering Facility: [facility] Address: [address] [place] [address] Performed By: #### 5 7021-8 ####[facility]ENTERNCA [id number] [place] [address] [place] Comprehensive metabolic 2000 panelon 07-28-2025 Albumin [Mass/Vol] 4.0 g/dL Normal 3.9-4.9 [facility] Comment on above: Order Comment: Speci men Type: BLOOD SPECIMENOrdering Facility: [facility] Address: [address] [place] [address] Performed By: #### 2 4323-8 ####[facility]ENTERNCLIA [id number] [place] [address] [place] ALP [Catalytic activity/Vol] 120 U/L High 38-113 [facility] Comment on above: Order Comment: Speci men Type: BLOOD SPECIMENOrdering Facility: [facility] Address: [address] [place] [address] Performed By: #### 2 4323-8 ####[facility]ENTERNCLIA [id number] [place] [address] [place] ALT [Catalytic activity/Vol] 7 U/L Low 10-54 [facility] Comment on above: Order Comment: Speci men Type: BLOOD SPECIMENOrdering Facility: [facility] Address: [address] [place] [address] Performed By: #### 2 4323-8 ####[facility] GIANCARLONCLIA [id number] [place] [address] [place] Anion gap [Moles/Vol] 15 mmol/L Normal 8-15 [facility] Comment on above: Order Comment: Speci men Type: BLOOD SPECIMENOrdering Facility: [facility] Address: [address] [place] [address] Performed By: #### 2 4323-8 ####[facility]ENTERNCLIA [id number] [place] [address] [place] AST [Catalytic activity/Vol] 13 U/L Low 14-40 [facility] Comment on above: Order Comment: Speci men Type: BLOOD SPECIMENOrdering Facility: [facility] Address: [address] [place] [address] Performed By: #### 2 4323-8 ####[facility]ENTERNCLIA [id number] [place] [address] [place] Bilirubin [Mass/Vol] 0.4 mg/dL Normal 0.2-1.3 [facility] Comment on above: Order Comment: Speci men Type: BLOOD SPECIMENOrdering Facility: [facility] Address: [address] [place] [address] Performed By: #### 2 4323-8 ####[facility]ENTERNCLIA [id number] [place] [address] [place] Calcium [Mass/Vol] 9.7 mg/dL Normal 8.5-10.2 [facility] Comment on above: Order Comment: Speci men Type: BLOOD SPECIMENOrdering Facility: [facility] Address: [address] [place] [address] Performed By: #### 2 4323-8 ####[facility] MILLWNCLIA [id number] [place] [address] [place] Chloride [Moles/Vol] 102 mmol/L Normal 98-107 [facility] Comment on above: Order Comment: Speci men Type: BLOOD SPECIMENOrdering Facility: [facility] Address: [address] [place] [address] Performed By: #### 2 4323-8 ####[facility]ENTERL[facility] [id number] [place] [address] [place] CO2 [Moles/Vol] 21 mmol/L Low 22-30 [facility] Comment on above: Order Comment: Speci men Type: BLOOD SPECIMENOrdering Facility: [facility] Address: [address] [place] [address] Performed By: #### 2 4323-8 ####[facility]ENTERL[facility] [id number] [place] [address] [place] Creatinine [Mass/Vol] 0.86 mg/dL Normal 0.73-1.22 [facility] Comment on above: Order Comment: Speci men Type: BLOOD SPECIMENOrdering Facility: [facility] Address: [address] [place] [address] Performed By: #### 2 4323-8 ####[facility]ENTERL[facility] [id number] [place] [address] [place] eGFRcr SerPlBld CKD-EPI 2020 99 mL/min/1.73m??? Normal >=60 [facility] Comment on above: Order Comment: Speci men Type: BLOOD SPECIMENOrdering Facility: [facility] Address: [address] [place] [address] Result Comment: Alee mated Glomerular Filtration Rate [...] actual GFR. Performed By: #### 2 4323-8 ####[facility]ENTERNCLI [id number] [place] [address] [place] Glucose [Mass/Vol] 144 mg/dL High 74-99 [facility] Comment on above: Order Comment: Speci men Type: BLOOD SPECIMENOrdering Facility: [facility] Address: [address] [place], [place] [id number] Result Comment: The [place] Diabetes Association (ADA) provides guidance for cutoff [...] Standards of Medical Care in Diabetes 2016, [place] [employer] Association. Diabetes Care. 2016.39(Suppl 1). Performed By: #### 2 4323-8 ####[facility]ENTERNCA [id number] [place] [address] [place] Potassium [Moles/Vol] 4.1 mmol/L Normal 3.7-5.1 [facility] Comment on above: Order Comment: Galei men Type: BLOOD SPECIMENOrdering Facility: [facility] Address: [address] [place] [address] Performed By: #### 2 4323-8 ####[facility] NASSAUA [id number] [place] [address] [place] Protein [Mass/Vol] 7.1 g/dL Normal 6.3-8.0 [facility] Comment on above: Order Comment: Speci men Type: BLOOD SPECIMENOrdering Facility: [facility] Address: [address] [place] [address] Performed By: #### 2 4323-8 ####[facility]ENTERNCLIA [id number] [place] [address] [place] Sodium [Moles/Vol] 138 mmol/L Normal 136-144 [facility] Comment on above: Order Comment: Speci men Type: BLOOD SPECIMENOrdering Facility: [facility] Address: [address] [place] [address] Performed By: #### 2 4323-8 ####[facility] [id number] [place] [address] [place] Urea nitrogen [Mass/Vol] 16 mg/dL Normal 9-24 [facility] Comment on above: Order Comment: Speci men Type: BLOOD SPECIMENOrdering Facility: [facility] Address: [address] [place] [address] Performed By: #### 2 4323-8 ####[facility] NASSAUA [id number] [place] [address] [place] Ferritin SerPl-mCncon 2024 Ferritin [Mass/Vol] 46.7 ng/mL Normal 30.3-565.7 [facility] Comment on above: Order Comment: Speci men Type: BLOOD SPECIMENOrdering Facility: [facility] Address: [address] [place] [address] Performed By: #### 2 4331-1 ####[facility] LABCLIA [id number] [place] [address] [place] AMERICATGH [place] [id number] [place] [address] [place]#### 2276-4, 28924-0 ####[facility] LABCLIA [id number] [place] [address] [place] Folate SerPl-ncon 07-28-20 25 Folate [Mass/Vol] 10.9 ng/mL Normal >4.7 [facility] Comment on above: Order Comment: Carlo kingsley Type: BLOOD SPECIMENOrdering Facility: [facility] Address: [address] [place] [address] Performed By: #### 2 132-9, 2284-8 ####[facility] LABCLIA [id number] [address] OF [facility] HbA1c (Bld)on 07-28-2025 Average glucose Estimated from glycated hemoglobin (Bld) [Mass/Vol] 117 mg/dL Normal [facility] Comment on above: Order Comment: Carlo kingsley Type: BLOOD SPECIMEN [facility] Address: [address] [place] [address] Result Comment: eAG: (Estimated average glucose) is a calculated value from HgbA1c and is customer contact representative of the average blood glucose level in the last 2-3 month period. Performed By: #### 2 4362-6 #### [facility] [id number] [address] [place] [address] [place] HbA1c (Bld) [Mass fraction] 5.7 % High 4.3-5.6 [facility] Comment on above: Order Comment: Carlo kingsley Type: BLOOD SPECIMEN [facility] Address: [address] [place] [address] Result Comment: Amer ican Diabetes Association guidelines indicate that patients with HgbA1c in the range 5.7-6.4% are at increased risk for development of diabetes, and intervention by lifestyle modification may be beneficial. HgbA1c greater or equal to 6.5% is considered diagnostic of diabetes. Performed By: #### 2 4362-6 #### [facility] [id number] [address] [place] [address] [place] Iron and Iron binding capaci ty panelon 07-28-2025 Iron [Mass/Vol] 23 ug/dL Low 41-186 [facility] Comment on above: Order Comment: Speci men Type: BLOOD SPECIMENOrdering Facility: [facility] Address: [address] [address] Performed By: #### 2 4331-1 ####[facility] LABCLIA [id number] [place] [address] [place] [facility] [id number] [place] [address] [place]#### 2276-4, 59155-7 ####[facility] LABCLIA [id number] [place] [address] [place] Iron binding capacity [Mass/Vol] 335 ug/dL Normal 232-386 [facility] Comment on above: Order Comment: Speci men Type: BLOOD SPECIMENOrdering Facility: [facility] Address: [address] [place] [address] Performed By: #### 2 4331-1 ####[facility] LABCLIA [id number] [address] STATES [facility] [id number] [place] [address] [place]#### 2276-4, 16893-4 ####[facility] LABCLIA [id number] [place] [address] [place] Iron/TIBC [Molar ratio] 6.9 % Low 15.0-57.0 [facility] Comment on above: Order Comment: Speci men Type: BLOOD SPECIMENOrdering Facility: [facility] Address: [address] [address] Performed By: #### 2 4331-1 ####[facility] LABCLIA [id number] [place] [address] [place] [facility] [id number] [place] [address] [place]#### 2276-4, 08538-1 ####[facility] LABCLIA [id number] [place] [address] [place] Lipid 1996 panelon 5 Cholesterol [Mass/Vol] 157 mg/dL Normal <200 [facility] Comment on above: Order Comment: Speci men Type: BLOOD SPECIMENOrdering Facility: [facility] Address: [address] [place] [address] Result Comment: <200 mg/dL, Desirable 200-239 mg/dL, Borderline high >239 mg/dL, High Performed By: #### 2 4331-1 ####[facility] LABCLIA [id number] [address] [id number] [place] [address] [place]#### 2276-4, 85871-0 ####[facility] LABCLIA [id number] [address] STATES [facility] Cholesterol in HDL [Mass/Vol] 31 mg/dL Low >39 [facility] Comment on above: Order Comment: Speci men Type: BLOOD SPECIMENOrdering Facility: [facility] Address: [address] [place] [address] Result Comment: 40-5 9 mg/dL, Acceptable >59 mg/dL, High: Negative risk factor for coronary heart disease <40 mg/dL, Low: Positive risk factor for coronary heart disease Performed By: #### 2 4331-1 ####[facility] LABCLIA [id number] [address] [id number] [place] [address] [place]#### 2276-4, 45392-6 ####[facility] LABCLIA [id number] [address] [place] Cholesterol in LDL [Mass/Vol] 107 mg/dL High <100 [facility] Comment on above: Order Comment: Speci men Type: BLOOD SPECIMENOrdering Facility: [facility] Address: [address] [place] [address] Result Comment: <100 mg/dL, Optimal 100-129 mg/dL, Near optimal/above optimal 130-159 mg/dL, Borderline high 160-189 mg/dL, High >189 mg/dL, Very high Secondary prevention optimal LDL Cholesterol levels are recommended to be <70 mg/dL LDL cholesterol is calculated using the Snow-NIH equation. Performed By: #### 2 4331-1 ####[facility] LABCLIA [id number] [address] [id number] [place] [address]#### 2276-4, 11043-7 ####[facility] [id number] [address] Cholesterol in LDL/Cholesterol in HDL [Mass ratio] 3.45 {ratio} High <2.54 [facility] Comment on above: Order Comment: Galeshyanne kingsley Type: BLOOD SPECIMENOrdering Facility: [facility] Address: [address] [place] [address] Result Comment: Dick fletcher: 1. National Cholesterol Education Program ATP III Guideline At-A-Glance Quick Desk Reference: National Heart, Lung, and Blood Carmine. National Institutes of Health. 2001: NIH Publication No. 01-3305. 2. An International Atherosclerosis Society position paper: global recommendations for the management of dyslipidemia: executive summary, Atherosclerosis. 2014: 232(2):410-413. Performed By: #### 2 4331-1 ####[facility] LABCLIA [id number] [address] [id number] [place] [address]#### 2276-4, 20004-3 ####[facility] LABCLIA [id number] [place] [address] Cholesterol in VLDL [Mass/Vol] 17 mg/dL Normal <30 [facility] Comment on above: Order Comment: Speci men Type: BLOOD SPECIMENOrdering Facility: [facility] Address: [address] [place] [address] Performed By: #### 2 4331-1 ####[facility] LABCLIA [id number] [address] [id number] [address] [place]#### 2276-4, 67814-1 ####[facility] LABCLIA [id number] [address] Cholesterol non HDL [Mass/Vol] 126 mg/dL Normal <130 [facility] Comment on above: Order Comment: Speci men Type: BLOOD SPECIMENOrdering Facility: [facility] Address: [address] [place] [address] Result Comment: <130 mg/dL, Optimal 130-159 mg/dL, Near optimal/above optimal 160-189 mg/dL, Borderline high 190-219 mg/dL, High >219 mg/dL, Very high Secondary prevention optimal non HDL Cholesterol levels are recommended to be <100 mg/dL Performed By: #### 2 4331-1 ####[facility] LABCLIA [id number] [address] STATES [facility] [id number] [address] [place]#### 2276-4, 38937-2 ####[facility] LABCLIA [id number] [address] [place] Cholesterol.total/C holesterol in HDL [Mass ratio] 5.06 {ratio} Normal <5.10 [facility] Comment on above: Order Comment: Speci men Type: BLOOD SPECIMENOrdering Facility: [facility] Address: [address] [place] [address] Performed By: #### 2 4331-1 ####[facility] LABCLIA [id number] [address] [id number] [address] [place]#### 2276-4, 20651-8 ####[facility] LABCLIA [id number] [place] [address] [place] FASTING TIME 12 hrs Normal [facility] Comment on above: Order Comment: Speci men Type: BLOOD SPECIMENOrdering Facility: [facility] Address: [address] [place] [address] Performed By: #### 2 4331-1 ####[facility] LABCLIA [id number] [address] [id number] [place] [address] [place]#### 2276-4, 53427-7 ####[facility] LABCLIA [id number] [address] [place] Triglyceride [Mass/Vol] 104 mg/dL Normal <150 [facility] Comment on above: Order Comment: Speci men Type: BLOOD SPECIMENOrdering Facility: [facility] Address: [address] [place] [address] Result Comment: <150 mg/dL, Normal 150-199 mg/dL, Borderline high 200-499 mg/dL, High >499 mg/dL, Very high Performed By: #### 2 4331-1 ####[facility] LABCLIA [id number] [address] [id number] [address] [place]#### 2276-4, 59001-4 ####[facility] LABCLIA [id number] [place] [address] [place] PSA/PROSTATE SPECIFIC ANTIGE N SCREENINGon 07-28-2025 Prostate specific Ag [Mass/Vol] 0.95 ng/mL Normal <2.60 [facility] Comment on above: Order Comment: Speci men Type: BLOOD SPECIMENOrdering Facility: [facility] Address: [address] [place] [address] Result Comment: Tota l PSA test methodology used is the Electrochemiluminescence Immunoassay by [employer]. Total PSA values by differing methodologies cannot be interchanged. Performed By: #### P SAS1 ####[facility] LABCLIA [id number] [place] [address] [place] Tacrolimus Bld-mCncon 2024 Tacrolimus (Bld) [Mass/Vol] 6.2 ng/mL Normal 5.0-20.0 [facility] Comment on above: Order Comment: Speci men Type: BLOOD SPECIMEN [facility] Address: [address] [place] [address] Result Comment: Ruth vidualized target levels for [...] i. Performed By: #### 2 4362-6 #### [facility] CLIA [id number] [place] [address] [place] Urinalysis complete panel (U )on 07-28-2025 Bacteria LM.HPF (Urine sed) [#/Area] Negative Normal Negative [facility] Comment on above: Order Comment: Speci men Type: URINE SPECIMENOrdering Facility: [facility] Address: [address] [place] [address] Performed By: #### 2 4356-8 ####[facility] LABCLIA [id number] [place] [address] [place] Bilirubin Ql (U) Negative Normal Negative [facility] Comment on above: Order Comment: Speci men Type: URINE SPECIMENOrdering Facility: [facility] Address: [address] [place] [address] Performed By: #### 2 4356-8 ####[facility] LABCLIA [id number] [address] [place] Clarity (Unsp spec) Clear Normal Clear [facility] Comment on above: Order Comment: Speci men Type: URINE SPECIMENOrdering Facility: [facility] Address: [address] [place] [address] Performed By: #### 2 4356-8 ####[facility] LABIA [id number] [address] STATES OF [facility] Color (U) Yellow Normal Yellow [facility] Comment on above: Order Comment: Speci men Type: URINE SPECIMENOrdering Facility: [facility] Address: [address] [place] [address] Performed By: #### 2 4356-8 ####[facility] LABCLIA [id number] [address] Epithelial cells LM.HPF (Urine sed) [#/Area] None Seen Normal [facility] Comment on above: Order Comment: Speci men Type: URINE SPECIMENOrdering Facility: [facility] Address: [address] [place] [address] Performed By: #### 2 4356-8 ####[facility] LABCLIA [id number] [address] [place] Glucose Test strip (U) [Mass/Vol] Negative Normal Negative [facility] Comment on above: Order Comment: Speci men Type: URINE SPECIMENOrdering Facility: [facility] Address: [address] [place] [address] Performed By: #### 2 4356-8 ####[facility] LABCLIA [id number] [address] [place] Hemoglobin Ql (U) Negative Normal Negative [facility] Comment on above: Order Comment: Speci men Type: URINE SPECIMENOrdering Facility: [facility] Address: [address] [place] [address] Performed By: #### 2 4356-8 ####[facility] LABCLIA [id number] [place] [address] [place] Hyaline casts (Urine sed) [#/Area] 0 /[LPF] Normal 0 /LPF [facility] Comment on above: Order Comment: Speci men Type: URINE SPECIMENOrdering Facility: [facility] Address: [address] [place] [address] Performed By: #### 2 4356-8 ####[facility] LABCLIA [id number] [place] [address] [place] Ketones Ql (U) Trace Abnormal Negative [facility] Comment on above: Order Comment: Speci men Type: URINE SPECIMENOrdering Facility: [facility] Address: [address] [place] [address] Performed By: #### 2 4356-8 ####[facility] LABCLIA [id number] [place] [address] [place] Leukocyte esterase Test strip Ql (U) Trace Abnormal Negative [facility] Comment on above: Order Comment: Speci men Type: URINE SPECIMENOrdering Facility: [facility] Address: [address] [place] [address] Performed By: #### 2 4356-8 ####[facility] LABCLIA [id number] [place] [address] [place] Nitrite Ql (U) Negative Normal Negative [facility] Comment on above: Order Comment: Speci men Type: URINE SPECIMENOrdering Facility: [facility] Address: [address] [place] [address] Performed By: #### 2 4356-8 ####[facility] LABCLIA [id number] [place] [address] [place] pH (U) 6.0 [pH] Normal 5.0-8.0 [facility] Comment on above: Order Comment: Speci men Type: URINE SPECIMENOrdering Facility: [facility] Address: [address] [place] [address] Performed By: #### 2 4356-8 ####[facility] LABCLIA [id number] [place] [address] [place] Protein (U) [Mass/Vol] Negative Normal Negative [facility] Comment on above: Order Comment: Speci men Type: URINE SPECIMENOrdering Facility: [facility] Address: [address] [place] [address] Performed By: #### 2 4356-8 ####[facility] LABCLIA [id number] [place] [address] [place] RBC LM.HPF (Urine sed) [#/Area] 0-2 /HPF Normal 0-2 /HPF [facility] Comment on above: Order Comment: Speci men Type: URINE SPECIMENOrdering Facility: [facility] Address: [address] [place] [address] Performed By: #### 2 4356-8 ####[facility] LABCLIA [id number] [place] [address] [place] Specific gravity (U) [Rel density] 1.016 Normal 1.005-1.030 [facility] Comment on above: Order Comment: Speci men Type: URINE SPECIMENOrdering Facility: [facility] Address: [address] [place] [address] Performed By: #### 2 4356-8 ####[facility] LABCLIA [id number] [place] [address] [place] Urobilinogen Ql (U) 1.0 EU/dL Normal 0.2-1.0 EU/dL [facility] Comment on above: Order Comment: Speci men Type: URINE SPECIMENOrdering Facility: [facility] Address: [address] [place] [address] Performed By: #### 2 4356-8 ####[facility] LABCLIA [id number] [place] [address] [place] WBC LM.HPF (Urine sed) [#/Area] 0-5 /HPF Normal 0-5 /HPF [facility] Comment on above: Order Comment: Speci men Type: URINE SPECIMENOrdering Facility: [facility] Address: [address] [place] [address] Performed By: #### 2 4356-8 ####[facility] LABCLIA [id number] [place] [address] [place] Vit B12 [facility] 10-23-2 025 Cobalamin (Vitamin B12) [Mass/Vol] 433 pg/mL Normal 232-1245 [facility] Comment on above: Order Comment: Speci men Type: BLOOD SPECIMENOrdering Facility: [facility] Address: [address] [place] [address] Performed By: #### 2 132-9, 2284-8 ####[facility] LABCLIA [id number] [place] [address] [place] CNOVon 05-11-2025 CNOV Office Visit (YADYWS ) HOMAR FALLON ([id number]) 1965 M Date Time Provider Department 05/11/25 [...] PCP - General (Family Medicine) Leticia Jasso, TRINY.SHINGLE INSPECTOR as Carding Machine Operator (Family Medicine) Alicia Chen APRN.KALIA as Carding Machine Operator (Family Medicine) Mehran Urrutia, DOOR AND ARRIVAL ATTENDANT-nephrology/transplant. No Dr Valdez, rehab therapist. Dr Fink, surgery Dr Barraza, GASTROENTEROLOGY Dr [...] if needed. - Sees Dr. Lopez at [facility] for ophthalmology. - Sees Dr. [...] since his transplant. Discussed recently with his physical therapy aide. Denies syncope. Dupuytren's Contracture: - Contractures in [...] pancreatitis (HCC) (more content not included)... Normal [facility] CBC panel Auto (Bld)on 05-09 Erythrocyte distribution width (RBC) [Ratio] 14.0 % Normal 11.5-15.0 [facility] Comment on above: Order Comment: Speci men Type: BLOOD SPECIMENOrdering Facility: [facility] Address: [address] [place] [address] Performed By: #### 5 8410-2 ####[facility] JOELTrinoNCLIA [id number] [place] [address] [place] Hematocrit (Bld) [Volume fraction] 39.5 % Normal 39.0-51.0 [facility] Comment on above: Order Comment: Speci men Type: BLOOD SPECIMENOrdering Facility: [facility] Address: [address] [place] [address] Performed By: #### 5 8410-2 ####[facility] [id number] [place] [address] [place] Hemoglobin (Bld) [Mass/Vol] 12.5 g/dL Low 13.0-17.0 [facility] Comment on above: Order Comment: Speci men Type: BLOOD SPECIMENOrdering Facility: [facility] Address: [address] [place] [address] Performed By: #### 5 8410-2 ####[facility] [id number] [place] [address] [place] MCH (RBC) [Entitic mass] 24.0 pg Low 26.0-34.0 [facility] Comment on above: Order Comment: Speci men Type: BLOOD SPECIMENOrdering Facility: [facility] Address: [address] [place] [address] Performed By: #### 5 8410-2 ####[facility] [id number] [place] [address] [place] MCHC (RBC) [Mass/Vol] 31.6 g/dL Normal 30.5-36.0 [facility] Comment on above: Order Comment: Speci men Type: BLOOD SPECIMENOrdering Facility: [facility] Address: [address] [place] [address] Performed By: #### 5 8410-2 ####[facility] JOELWNCLIA [id number] [place] [address] [place] MCV (RBC) [Entitic vol] 76.0 fL Low 80.0-100.0 [facility] Comment on above: Order Comment: Speci men Type: BLOOD SPECIMENOrdering Facility: [facility] Address: [address] [place] [address] Performed By: #### 5 8410-2 ####[facility] [id number] [place] [address] [place] Nucleated RBC (Bld) [#/Vol] 10*3/uL Normal <0.01 [facility] Comment on above: Order Comment: Speci men Type: BLOOD SPECIMENOrdering Facility: [facility] Address: [address] [place] [address] Performed By: #### 5 8410-2 ####[facility] [id number] [place] [address] [place] Platelet mean volume (Bld) [Entitic vol] 10.6 fL Normal 9.0-12.7 [facility] Comment on above: Order Comment: Speci men Type: BLOOD SPECIMENOrdering Facility: [facility] Address: [address] [place] [address] Performed By: #### 5 8410-2 ####[facility]ITAL[facility]CL[facility] [id number] [place] [address] [place] Platelets (Bld) [#/Vol] 164 10*3/uL Normal 150-400 [facility] Comment on above: Order Comment: Speci men Type: BLOOD SPECIMENOrdering Facility: [facility] Address: [address] [place] [address] Performed By: #### 5 8410-2 ####[facility] [id number] [place] [address] [place] RBC (Bld) [#/Vol] 5.20 10*6/uL Normal 4.20-6.00 [facility] Comment on above: Order Comment: Speci men Type: BLOOD SPECIMENOrdering Facility: [facility] Address: [address] [place] [address] Performed By: #### 5 8410-2 ####[facility] [id number] [place] [address] [place] WBC (Bld) [#/Vol] 5.86 10*3/uL Normal 3.70-11.00 [facility] Comment on above: Order Comment: Speci men Type: BLOOD SPECIMENOrdering Facility: [facility] Address: [address] [place] [address] Performed By: #### 5 8410-2 ####[facility] [id number] [place] [address] [place] HbA1c (Bld)on 05-09-2025 Average glucose Estimated from glycated hemoglobin (Bld) [Mass/Vol] 126 mg/dL Normal [facility] Comment on above: Order Comment: Speci men Type: BLOOD SPECIMENOrdering Facility: [facility] Address: [address] [place] [address] Result Comment: eAG: (Estimated average glucose) is a calculated value from HgbA1c and is customer contact representative of the average blood glucose level in the last 2-3 month period. Performed By: #### 5 5454-3 ####[facility] LABCLIA [id number] [place] [address] [place] HbA1c (Bld) [Mass fraction] 6.0 % High 4.3-5.6 [facility] Comment on above: Order Comment: Speci men Type: BLOOD SPECIMENOrdering Facility: [facility] Address: [address] [place] [address] Result Comment: Amer ican Diabetes Association guidelines indicate that patients with HgbA1c in the range 5.7-6.4% are at increased risk for development of diabetes, and intervention by lifestyle modification may be beneficial. HgbA1c greater or equal to 6.5% is considered diagnostic of diabetes. Performed By: #### 5 5454-3 ####[facility] LABCLIA [id number] [place] [address] [place] Renal function 2000 panelon 05-09-2025 Albumin [Mass/Vol] 3.7 g/dL Low 3.9-4.9 [facility] Comment on above: Order Comment: Speci men Type: BLOOD SPECIMEN [facility] Address: [address] [place] [address] Performed By: #### 2 4362-6 #### [facility] [id number] [address] [place] [address] [place] Anion gap [Moles/Vol] 12 mmol/L Normal 8-15 [facility] Comment on above: Order Comment: Speci men Type: BLOOD SPECIMEN [facility] Address: [address] [place] [address] Performed By: #### 2 4362-6 #### [facility] [id number] [address] [place] [address] [place] Calcium [Mass/Vol] 9.5 mg/dL Normal 8.5-10.2 [facility] Comment on above: Order Comment: Speci men Type: BLOOD SPECIMEN [facility] Address: [address] [place] [address] Performed By: #### 2 4362-6 #### [facility] [id number] [address] [place] [address] [place] Chloride [Moles/Vol] 105 mmol/L Normal 98-107 [facility] Comment on above: Order Comment: Speci men Type: BLOOD SPECIMEN [facility] Address: [address] [place] [address] Performed By: #### 2 4362-6 #### [facility] CLIA [id number] [address] [place] [address] [place] CO2 [Moles/Vol] 21 mmol/L Low 22-30 [facility] Comment on above: Order Comment: Speci men Type: BLOOD SPECIMEN [facility] Address: [address] [place] [address] Performed By: #### 2 4362-6 #### [facility] CLIA [id number] [address] [place] [address] [place] Creatinine [Mass/Vol] 0.86 mg/dL Normal 0.73-1.22 [facility] Comment on above: Order Comment: Speci men Type: BLOOD SPECIMEN [facility] Address: [address] [place] [address] Performed By: #### 2 4362-6 #### [facility] CLIA [id number] [address] [place] [address] [place] eGFRcr SerPlBld CKD-EPI 2020 99 mL/min/1.73m??? Normal >=60 [facility] Comment on above: Order Comment: Speci men Type: BLOOD SPECIMEN [facility] Facility[facility] Address: [address] [place] [address] Result Comment: Alee mated Glomerular Filtration Rate [...] GFR. Performed By: #### 2 4362-6 #### [facility] CLIA [id number] [address] [place] [address] [place] Glucose [Mass/Vol] 169 mg/dL High 74-99 [facility] Comment on above: Order Comment: Carlo kingsley Type: BLOOD SPECIMEN [facility] Facility: [facility] Address: [address] [place] [address] Result Comment: The [place] Diabetes Association (ADA) provides guidance for cutoff [...] Standards of Medical Care in Diabetes 2016, [place] Diabetes Association. Diabetes Care. 2016.39(Suppl 1). Performed By: #### 2 4362-6 #### [facility] CLIA [id number] [address] [place] [address] [place] Phosphate [Mass/Vol] 2.8 mg/dL Normal 2.7-4.8 [facility] Comment on above: Order Comment: Carlo kingsley Type: BLOOD SPECIMEN [facility] Address: [address] [place] [address] Performed By: #### 2 4362-6 #### [facility] CLIA [id number] [address] [place] [address] [place] Potassium [Moles/Vol] 4.0 mmol/L Normal 3.7-5.1 [facility] Comment on above: Order Comment: Carlo kingsley Type: BLOOD SPECIMEN [facility] Address: [address] [place] [address] Performed By: #### 2 4362-6 #### [facility] CLIA [id number] [address] [place] [address] [place] Sodium [Moles/Vol] 138 mmol/L Normal 136-144 [facility] Comment on above: Order Comment: Speci men Type: BLOOD SPECIMEN [facility] Address: [address] [place] [address] Performed By: #### 2 4362-6 #### [facility] CLIA [id number] [address] [place] [address] STATES OF [facility] Urea nitrogen [Mass/Vol] 14 mg/dL Normal 9-24 [facility] Comment on above: Order Comment: Carlo kingsley Type: BLOOD SPECIMEN [facility] Address: [address] [place] [address] Performed By: #### 2 4362-6 #### [facility] CLIA [id number] [address] [place] [address] [place] Tacrolimus Bld-mCncon 2024 Tacrolimus (Bld) [Mass/Vol] 8.7 ng/mL Normal 5.0-20.0 [facility] Comment on above: Order Comment: Carlo kingsley Type: BLOOD SPECIMEN [facility] Facility: [facility] Address: [address] [place] [address] Result Comment: Ruth vidualized target levels for [...] i. Performed By: #### 2 4362-6 #### [facility] CLIA [id number] [address] [place] [address] OF [place] CNOVon 02-07-2025 CNOV Office Visit (KIDMMN ) HOMAR FALLON ([id number]) 1965 M Date Time Provider Department 02/07/25 8:30 AM MEHRAN URRUTIA During your visit today, we recorded the following information about you: Pulse Blood pressure Weight Height 87/minute 122/68 89.5 kg 1.753 m Mehran Urrutia APRN.SHINGLE INSPECTOR 02/10/2025 11:37 PM Signed Recording using DineGasm software for draft documentation of the visit was discussed with the patient/authorized customer contact representative; all questions welcomed and answered. Patient/authorized customer contact representative agreed to proceed Department of Kidney Medicine Medical Specialties [facility] CHIEF COMPLAINT: post tx follow up care [...] for gastric bezoar 01/29/24 office visit with [facility] TAC reduced to 2mg BID Encouraged to [...] studies, and office notes were reviewed in [facility] ASSESSMENT/PLAN: 59 year (more content not included)... Normal [facility] - Hematology and Cell countson 02-07-2025 Hemoglobin Ql (U) Trace-intact Abnormal Negative [facility] - Urinalysison Protein Ql (U) Negative Negative mg/dL [facility] No Panel Informationon 02-07 BILIRUBIN UA (POCT) Negative Negative [facility] CLARITY UA (POCT) Clear [facility] COLOR UA (POCT) Yellow [facility] GLUCOSE UA (POCT) Negative Negative mg/dL [facility] Interpretation and review of laboratory results Abnormal [facility] KETONE UA (POCT) Negative Negative mg/dL [facility] LEUKOCYTES UA (POCT) Negative Negative [facility] NITRITE UA (POCT) Negative Negative [facility] PH UA (POCT) 6 4.5 - 8.0 [facility] SPECIFIC GRAVITY UA (POCT) <=1.005 Abnormal 1.005 - 1.030 [facility] UROBILINOGEN UA (POCT) 0.2 Normal E.U./dL [facility] Location:[facility] silvana, [address] [place] [address], [address] [place] [address] POINT OF CARE [facility] Amylase SerPl-cCncon 025 Amylase [Catalytic activity/Vol] 18 U/L Low 30-104 [facility] Comment on above: Order Comment: Speci men Type: BLOOD SPECIMENOrdering Facility: [facility] Address: [address] [place] [address] Performed By: #### 1 798-8, 3040-3 ####[facility] LABCLIA [id number] [place] [address] [place] C peptide SerPl-mCncon 02-04 C peptide [Mass/Vol] 4.2 ng/mL Normal 1.1-4.4 [facility] Comment on above: Order Comment: Speci men Type: BLOOD SPECIMENOrdering Facility: [facility] Address: [address] [place] [address] Performed By: #### 1 986-9 ####[facility] LABCLIA [id number] [place] [address] [place] CBC W Auto Differential pane l (Bld)on 02-04-2025 Basophils (Bld) [#/Vol] 0.05 10*3/uL Normal <0.11 [facility] Comment on above: Order Comment: Speci men Type: BLOOD SPECIMEN [facility] Address: [address] [place] [address] Performed By: #### 2 4362-6 #### [facility] CLIA [id number] [address] [place] [address] STATES [place] Basophils/100 WBC (Bld) 0.7 % Normal [facility] Comment on above: Order Comment: Speci men Type: BLOOD SPECIMEN [facility] Address: [address] [place] [address] Performed By: #### 2 4362-6 #### [facility] CLIA [id number] [address] [place] [address] [place] Differential cell count method Nom (Bld) Auto Normal [facility] Comment on above: Order Comment: Speci men Type: BLOOD SPECIMEN [facility] Address: [address] [place] [address] Performed By: #### 2 4362-6 #### [facility] CLIA [id number] [address] [place] [address] [place] Eosinophils (Bld) [#/Vol] 0.16 10*3/uL Normal <0.46 [facility] Comment on above: Order Comment: Speci men Type: BLOOD SPECIMEN [facility] Address: [address] [place] [address] Performed By: #### 2 4362-6 #### [facility] CLIA [id number] [address] [place] [address] [place] Eosinophils/100 WBC (Bld) 2.1 % Normal [facility] Comment on above: Order Comment: Speci men Type: BLOOD SPECIMEN [facility] Address: [address] [place] [address] Performed By: #### 2 4362-6 #### [facility] CLIA [id number] [address] [place] [address] [place] Erythrocyte distribution width (RBC) [Ratio] 14.2 % Normal 11.5-15.0 [facility] Comment on above: Order Comment: Speci men Type: BLOOD SPECIMEN [facility] Address: [address] [place] [address] Performed By: #### 2 4362-6 #### [facility] CLIA [id number] [address] [place] [address] [place] Hematocrit (Bld) [Volume fraction] 45.4 % Normal 39.0-51.0 [facility] Comment on above: Order Comment: Speci men Type: BLOOD SPECIMEN [facility] Address: [address] [place] [address] Performed By: #### 2 4362-6 #### [facility] CLIA [id number] [address] [place] [address] [place] Hemoglobin (Bld) [Mass/Vol] 14.9 g/dL Normal 13.0-17.0 [facility] Comment on above: Order Comment: Speci men Type: BLOOD SPECIMEN Order[facility] Address: [address] [place] [address] Performed By: #### 2 4362-6 #### [facility] CLIA [id number] [address] [place] [address] [place] Immature granulocytes (Bld) [#/Vol] 0.04 10*3/uL Normal <0.10 [facility] Comment on above: Order Comment: Speci men Type: BLOOD SPECIMEN [facility] Address: [address] [place] [address] Performed By: #### 2 4362-6 #### [facility] CLIA [id number] [address] [place] [address] [place] Immature granulocytes/100 WBC (Bld) 0.5 % Normal [facility] Comment on above: Order Comment: Speci men Type: BLOOD SPECIMEN [facility] Address: [address] [place] [address] Performed By: #### 2 4362-6 #### [facility] CLIA [id number] [address] [place] [address] [place] Lymphocytes (Bld) [#/Vol] 2.56 10*3/uL Normal 1.00-4.00 [facility] Comment on above: Order Comment: Speci men Type: BLOOD SPECIMEN Order[facility] Facility[facility] Address: [address] [place] [address] Performed By: #### 2 4362-6 #### [facility] CLIA [id number] [address] [place] [address] [place] Lymphocytes/100 WBC (Bld) 34.1 % Normal [facility] Comment on above: Order Comment: Speci men Type: BLOOD SPECIMEN [facility] Address: [address] [place] [address] Performed By: #### 2 4362-6 #### [id number] [address] [place] [address] [place] MCH (RBC) [Entitic mass] 26.4 pg Normal 26.0-34.0 [facility] Comment on above: Order Comment: Speci men Type: BLOOD SPECIMEN [facility] Address: [address] [place] [address] Performed By: #### 2 4362-6 #### [facility] [id number] [address] [place] [address] [place] MCHC (RBC) [Mass/Vol] 32.8 g/dL Normal 30.5-36.0 [facility] Comment on above: Order Comment: Speci men Type: BLOOD SPECIMEN [facility] Address: [address] [place] [address] Performed By: #### 2 4362-6 #### [facility] [id number] [address] [place] [address] [place] MCV (RBC) [Entitic vol] 80.5 fL Normal 80.0-100.0 [facility] Comment on above: Order Comment: Speci men Type: BLOOD SPECIMEN [facility] Address: [address] [place] [address] Performed By: #### 2 4362-6 #### [facility] [id number] [address] [place] [address] [place] Monocytes (Bld) [#/Vol] 0.61 10*3/uL Normal <0.87 [facility] Comment on above: Order Comment: Speci men Type: BLOOD SPECIMEN [facility] Address: [address] [place] [address] Performed By: #### 2 4362-6 #### [facility] [id number] [address] [place] [address] [place] Monocytes/100 WBC (Bld) 8.1 % Normal [facility] Comment on above: Order Comment: Speci men Type: BLOOD SPECIMEN [facility] Address: [address] [place] [address] Performed By: #### 2 4362-6 #### [facility] CLIA [id number] [address] [place] [address] [place] Neutrophils (Bld) [#/Vol] 4.08 10*3/uL Normal 1.45-7.50 [facility] Comment on above: Order Comment: Speci men Type: BLOOD SPECIMEN [facility] Address: [address] [place] [address] Performed By: #### 2 4362-6 #### [facility] CLIA [id number] [address] [place] [address] [place] Neutrophils/100 WBC (Bld) 54.5 % Normal [facility] Comment on above: Order Comment: Speci men Type: BLOOD SPECIMEN [facility] Address: [address] [place] [address] Performed By: #### 2 4362-6 #### [facility] CLIA [id number] [address] [place] [address] [place] Nucleated RBC (Bld) [#/Vol] 10*3/uL Normal <0.01 [facility] Comment on above: Order Comment: Speci men Type: BLOOD SPECIMEN [facility] Address: [address] [place] [address] Performed By: #### 2 4362-6 #### [facility] CLIA [id number] [address] [place] [address] [place] Nucleated RBC/100 WBC (Bld) [Ratio] 0.0 /100 WBC Normal [facility] Comment on above: Order Comment: Speci men Type: BLOOD SPECIMEN Order[facility] Address: [address] [place] [address] Performed By: #### 2 4362-6 #### [facility] CLIA [id number] [address] [place] [address] [place] Platelet mean volume (Bld) [Entitic vol] 10.2 fL Normal 9.0-12.7 [facility] Comment on above: Order Comment: Speci men Type: BLOOD SPECIMEN [facility] Address: [address] [place], [place] [address] Performed By: #### 2 4362-6 #### [facility] CLIA [id number] [address] [place] [address] [place] Platelets (Bld) [#/Vol] 161 10*3/uL Normal 150-400 [facility] Comment on above: Order Comment: Speci men Type: BLOOD SPECIMEN [facility] Address: [address] [place], [place] [address] Performed By: #### 2 4362-6 #### [facility] CLIA [id number] [address] [place] [address] [place] RBC (Bld) [#/Vol] 5.64 10*6/uL Normal 4.20-6.00 [facility] Comment on above: Order Comment: Speci men Type: BLOOD SPECIMEN [facility] Address: [address] [place] [address] Performed By: #### 2 4362-6 #### [facility] CLIA [id number] [address] [place] [address] [place] WBC (Bld) [#/Vol] 7.50 10*3/uL Normal 3.70-11.00 [facility] Comment on above: Order Comment: Speci men Type: BLOOD SPECIMEN [facility] Address: [address] [place] [address] Performed By: #### 2 4362-6 #### [facility] CLIA [id number] [address] [place] [address] [place] Comprehensive metabolic 2000 panelon 02-04-2025 Albumin [Mass/Vol] 4.1 g/dL Normal 3.9-4.9 [facility] Comment on above: Order Comment: Speci men Type: BLOOD SPECIMENOrdering Facility: [facility] Address: [address] [place] [address] Performed By: #### 2 4323-8 ####[facility] [id number] [place] [address] [place] ALP [Catalytic activity/Vol] 129 U/L High 38-113 [facility] Comment on above: Order Comment: Speci men Type: BLOOD SPECIMENOrdering Facility: [facility] Address: [address] [place] [address] Performed By: #### 2 4323-8 ####[facility] [id number] [place] [address] [place] ALT [Catalytic activity/Vol] 19 U/L Normal 10-54 [facility] Comment on above: Order Comment: Speci men Type: BLOOD SPECIMENOrdering Facility: [facility] Address: [address] [place] [address] Performed By: #### 2 4323-8 ####[facility] [id number] [place] [address] [place] Anion gap [Moles/Vol] 9 mmol/L Normal 8-15 [facility] Comment on above: Order Comment: Speci men Type: BLOOD SPECIMENOrdering Facility: [facility] Address: [address] [place] [address] Performed By: #### 2 4323-8 ####[facility] [id number] [place] [address] [place] AST [Catalytic activity/Vol] 18 U/L Normal 14-40 [facility] Comment on above: Order Comment: Speci men Type: BLOOD SPECIMENOrdering Facility: [facility] Address: [address] [place] [address] Performed By: #### 2 4323-8 ####[facility] JOELWNCLIA [id number] [place] [address] [place] Bilirubin [Mass/Vol] 0.4 mg/dL Normal 0.2-1.3 [facility] Comment on above: Order Comment: Speci men Type: BLOOD SPECIMENOrdering Facility: [facility] Address: [address] [place] [address] Performed By: #### 2 4323-8 ####[facility] [id number] [place] [address] [place] Calcium [Mass/Vol] 9.6 mg/dL Normal 8.5-10.2 [facility] Comment on above: Order Comment: Speci men Type: BLOOD SPECIMENOrdering Facility: [facility] Address: [address] [place] [address] Performed By: #### 2 4323-8 ####[facility] [id number] [place] [address] [place] Chloride [Moles/Vol] 103 mmol/L Normal 98-107 [facility] Comment on above: Order Comment: Speci men Type: BLOOD SPECIMENOrdering Facility: [facility] Address: [address] [place] [address] Performed By: #### 2 4323-8 ####[facility] [id number] [place] [address] [place] CO2 [Moles/Vol] 26 mmol/L Normal 22-30 [facility] Comment on above: Order Comment: Speci men Type: BLOOD SPECIMENOrdering Facility: [facility] Address: [address] [place] [address] Performed By: #### 2 4323-8 ####[facility] [id number] [place] [address] [place] Creatinine [Mass/Vol] 0.77 mg/dL Normal 0.73-1.22 [facility] Comment on above: Order Comment: Speci men Type: BLOOD SPECIMENOrdering Facility: [facility] Address: [address] [place] [address] Performed By: #### 2 4323-8 ####[facility] [id number] [place] [address] [place] Creatinine and Glomerular filtration rate.predicted panel (S/P/Bld) 102 mL/min/1.73m??? Normal >=60 [facility] Comment on above: Order Comment: Carlo [facility] Type: BLOOD SPECIMENOrdering Facility: [facility] Address: [address] [place] [address] Result Comment: Alee mated Glomerular Filtration Rate [...] actual GFR. Performed By: #### 2 4323-8 ####[facility] [id number] [place] [address] [place] Glucose [Mass/Vol] 158 mg/dL High 74-99 [facility] Comment on above: Order Comment: Speci men Type: BLOOD SPECIMENOrdering Facility: [facility] Address: [address] [place] [address] Result Comment: The [place] Diabetes Association (ADA) provides guidance for cutoff [...] Standards of Medical Care in Diabetes 2016, [place] Diabetes Association. Diabetes Care. 2016.39(Suppl 1). Performed By: #### 2 4323-8 ####[facility] MILLTOWFRANKYLIA [id number] [place] [address] [place] Potassium [Moles/Vol] 4.1 mmol/L Normal 3.7-5.1 [facility] Comment on above: Order Comment: Carlo kingsley Type: BLOOD SPECIMENOrdering Facility: [facility] Address: [address] [place] [address] Performed By: #### 2 4323-8 ####[facility]ENTERFRANKYLIA [id number] [place] [address] [place] Protein [Mass/Vol] 6.6 g/dL Normal 6.3-8.0 [facility] Comment on above: Order Comment: Carlo kingsley Type: BLOOD SPECIMENOrdering Facility: [facility] Address: [address] [place] [address] Performed By: #### 2 4323-8 ####[facility]ENTERFRANKYLIA [id number] [place] [address] [place] Sodium [Moles/Vol] 138 mmol/L Normal 136-144 [facility] Comment on above: Order Comment: Galei men Type: BLOOD SPECIMENOrdering Facility: [facility] Address: [address] [place] [address] Performed By: #### 2 4323-8 ####[facility] [id number] [place] [address] [place] Urea nitrogen [Mass/Vol] 13 mg/dL Normal 9-24 [facility] Comment on above: Order Comment: Carlo kingsley Type: BLOOD SPECIMENOrdering Facility: [facility] Address: [address] [place] [address] Performed By: #### 2 4323-8 ####[facility] [id number] [place] [address] [place] HbA1c (Bld)on 02-04-2025 Average glucose Estimated from glycated hemoglobin (Bld) [Mass/Vol] 131 mg/dL Normal [facility] Comment on above: Order Comment: Carlo kingsley Type: BLOOD SPECIMENOrdering Facility: [facility] Address: [address] [place] [address] Result Comment: eAG: (Estimated average glucose) is a calculated value from HgbA1c and is customer contact representative of the average blood glucose level in the last 2-3 month period. Performed By: #### 5 5454-3 ####[facility] LABCLIA [id number] [place] [address] [place] HbA1c (Bld) [Mass fraction] 6.2 % High 4.3-5.6 [facility] Comment on above: Order Comment: Carlo kingsley Type: BLOOD SPECIMENOrdering Facility: [facility] Address: [address] [place] [address] Result Comment: [place] Diabetes Association guidelines indicate that patients with HgbA1c in the range 5.7-6.4% are at increased risk for development of diabetes, and intervention by lifestyle modification may be beneficial. HgbA1c greater or equal to 6.5% is considered diagnostic of diabetes. Performed By: #### 5 5454-3 ####[facility] LABCLIA [id number] [place] [address] [place] Lipase SerPl-cCncon 02-05-20 25 Lipase [Catalytic activity/Vol] 20 U/L Normal 16-61 [facility] Comment on above: Order Comment: Carlo kingsley Type: BLOOD SPECIMENOrdering Facility: [facility] Address: [address] [place] [address] Performed By: #### 1 798-8, 3040-3 ####[facility] LABIA [id number] [place] [id number] [place] Tacrolimus Bld-mCncon 2024 Tacrolimus (Bld) [Mass/Vol] 8.7 ng/mL Normal 5.0-20.0 [facility] Comment on above: Order Comment: Speci men Type: BLOOD SPECIMENOrdering Facility: [facility] Address: [address] [place] [address] Result Comment: Ruth vidualized target levels for [...] [place] i. Performed By: #### 1 1253-2 ####[facility] LABCLIA [id number] [place] [id number] [facility] Dick 10-23-2024 [facility] [place]OMAR [place]ON ([id number]) 1965 M Date Time Provider Department 10/23/24 TUNG AGUILAR [facility] During your visit today, we recorded the following information about you: Tung Aguilar MD 10/23/2024 8:45 AM Signed Let him know we are finding records of upper scopes performed at [facility] by . Friend Is he sure his [...] [Z12.11] Order(s):CONSULT TO GASTROENTEROLOGY [9010] Order #: [id number]: 1 FUTURE Prescriptions as of 10/25/2024 - [...] Prophylactic immunotherapy [Z29.89] 07/13/2012 H/O pancreas transplant ([facility]) [Z94.83] 08/16/2012 08/30/2020 Stiffness of joint, not [...] Encounter Status:Closed by VALENTINE LORD on 10/25/24 [facility] CNOVon 10-22-2024 CNOV Office Visit (FAMPWS ) HOMAR FALLON ([id number]) 1965 Date Time Provider Department 10/22/24 9:20 [...] Abs Lymph 1.00 - 4.00 k/uL 2.15 [place]% % 8.6 Abs [place] <0.87 k/uL 0.49 Eosin% % 2.4 Abs [...] REQ 2 CATH 2 SITS W/O SUBQ PORT/CLIENT RELATIONS SPECIALIST 09/18/06 LEFT INTERNAL JUGULAR PAST SURGICAL HISTORY [...] SHUNT 10/14/07 [facility] CVC W/O SUBQ PORT/CLIENT RELATIONS SPECIALIST 02/06/07 Removal of left IJ tessio catheters TRANSCATH STENT INIT VESSEL,PERCUT 10/08/06 TRANSCATH STENT INIT VESSEL,PERCUT 01/19/07 FAMILY HISTORY Problem Relation Age of Onset Diabetes Mother Heart Mother Hypertension Father Diabetes Father Prostate Cancer Father age 60 Heart Paternal Grandfather Prostate Cancer Paternal Uncle Prostate Cancer Paternal Uncle Social History Tobacco Use Smoking (more content not included)... Normal [facility] Amylase SerPl-cCncon 025 Amylase [Catalytic activity/Vol] 19 U/L Low 30-104 [facility] Comment on above: Order Comment: Speci men Type: BLOOD SPECIMEN [facility]ing Facility: [facility] Address: [address] [place] [address] Performed By: #### 2 4362-6 #### [facility] [id number] [address] [place] [address] [place] C peptide SerPl-mCncon 10-18 C peptide [Mass/Vol] 5.1 ng/mL High 1.1-4.4 [facility] Comment on above: Order Comment: Speci men Type: BLOOD SPECIMEN Ordering Facility: [facility] Address: [address] [place] [address] Performed By: #### 1 986-9 #### [facility] [place] [id number] [address] [place] [address] [place] CBC W Auto Differential pane l (Bld)on 10-18-2024 Basophils (Bld) [#/Vol] 0.05 10*3/uL Normal <0.11 [facility] Comment on above: Order Comment: Speci men Type: BLOOD SPECIMEN Ordering Facility: [facility] Address: [address] [place] [address] Performed By: #### 2 4362-6 #### [facility] [id number] [address] [place] [address] [place] Basophils/100 WBC (Bld) 0.9 % Normal [facility] Comment on above: Order Comment: Speci men Type: BLOOD SPECIMEN Ordering Facility: [facility] Address: [address] [place] [address] Performed By: #### 2 4362-6 #### [facility] CLIA [id number] [address] [place] [address] [place] Differential cell count method Nom (Bld) Auto Normal [facility] Comment on above: Order Comment: Speci men Type: BLOOD SPECIMEN Ordering Facility: [facility] Address: [address] [place] [address] Performed By: #### 2 4362-6 #### [facility] CLIA [id number] [address] [place] [address] [place] Eosinophils (Bld) [#/Vol] 0.14 10*3/uL Normal <0.46 [facility] Comment on above: Order Comment: Speci men Type: BLOOD SPECIMEN Ordering Facility: [facility] Address: [address] [place] [address] Performed By: #### 2 4362-6 #### [facility] CLIA [id number] [address] [place] [address] [place] Eosinophils/100 WBC (Bld) 2.4 % Normal [facility] Comment on above: Order Comment: Speci men Type: BLOOD SPECIMEN Ordering Facility: [facility] Address: [address] [place] [address] Performed By: #### 2 4362-6 #### [facility] CLIA [id number] [address] [place] [address] [place] Erythrocyte distribution width (RBC) [Ratio] 14.2 % Normal 11.5-15.0 [facility] Comment on above: Order Comment: Speci men Type: BLOOD SPECIMEN Ordering Facility: [facility] Address: [address] [place] [address] Performed By: #### 2 4362-6 #### [facility] CLIA [id number] [address] [place] [address] [place] Hematocrit (Bld) [Volume fraction] 45.4 % Normal 39.0-51.0 [facility] Comment on above: Order Comment: Speci men Type: BLOOD SPECIMEN Order[facility] Facility: [facility] Address: [address] [place] [address] Performed By: #### 2 4362-6 #### [facility] CLIA [id number] [address] [place] [address] [place] Hemoglobin (Bld) [Mass/Vol] 15.1 g/dL Normal 13.0-17.0 [facility] Comment on above: Order Comment: Speci men Type: BLOOD SPECIMEN Order[facility] Address: [address] [place] [address] Performed By: #### 2 4362-6 #### [facility] CLIA [id number] [address] [place] [address] [place] Immature granulocytes (Bld) [#/Vol] 0.03 10*3/uL Normal <0.10 [facility] Comment on above: Order Comment: Speci men Type: BLOOD SPECIMEN Order[facility] Facility: [facility] Address: [address] [place] [address] Performed By: #### 2 4362-6 #### [facility] CLIA [id number] [address] [place] [address] [place] Immature granulocytes/100 WBC (Bld) 0.5 % Normal [facility] Comment on above: Order Comment: Speci men Type: BLOOD SPECIMEN Ordering Facility: [facility] Address: [address] [place] [address] Performed By: #### 2 4362-6 #### [facility] CLIA [id number] [address] [place] [address] [place] Lymphocytes (Bld) [#/Vol] 2.15 10*3/uL Normal 1.00-4.00 [facility] Comment on above: Order Comment: Speci men Type: BLOOD SPECIMEN Ordering Facility: [facility] Address: [address] [place] [address] Performed By: #### 2 4362-6 #### [facility] CLIA [id number] [address] [place] [address] STATES [facility] Lymphocytes/100 WBC (Bld) 37.5 % Normal [facility] Comment on above: Order Comment: Speci men Type: BLOOD SPECIMEN Order[facility] Facility[facility] Address: [address] [place] [address] Performed By: #### 2 4362-6 #### [facility] CLIA [id number] [address] [place] [address] [place] MCH (RBC) [Entitic mass] 26.9 pg Normal 26.0-34.0 [facility] Comment on above: Order Comment: Speci men Type: BLOOD SPECIMEN Order[facility] Address: [address] [place] [address] Performed By: #### 2 4362-6 #### [facility] [id number] [address] [place] [address] [place] MCHC (RBC) [Mass/Vol] 33.3 g/dL Normal 30.5-36.0 [facility] Comment on above: Order Comment: Speci men Type: BLOOD SPECIMEN Ordering Facility: [facility] Address: [address] [place] [address] Performed By: #### 2 4362-6 #### [facility] CLIA [id number] [address] [place] [address] [place] MCV (RBC) [Entitic vol] 80.8 fL Normal 80.0-100.0 [facility] Comment on above: Order Comment: Speci men Type: BLOOD SPECIMEN Ordering Facility[facility] Address: [address] [place] [address] Performed By: #### 2 4362-6 #### [facility] CLIA [id number] [address] [place] [address] [place] Monocytes (Bld) [#/Vol] 0.49 10*3/uL Normal <0.87 [facility] Comment on above: Order Comment: Speci men Type: BLOOD SPECIMEN Order[facility] Address: [address] [place] [address] Performed By: #### 2 4362-6 #### [facility] CLIA [id number] [address] [place] [address] [place] Monocytes/100 WBC (Bld) 8.6 % Normal [facility] Comment on above: Order Comment: Speci men Type: BLOOD SPECIMEN Order[facility] Address: [address] [place] [address] Performed By: #### 2 4362-6 #### [facility] CLIA [id number] [address] [place] [address] [place] Neutrophils (Bld) [#/Vol] 2.87 10*3/uL Normal 1.45-7.50 [facility] Comment on above: Order Comment: Speci men Type: BLOOD SPECIMEN Order[facility] Address: [address] [place] [address] Performed By: #### 2 4362-6 #### [facility] CLIA [id number] [address] [place] [address] [place] Neutrophils/100 WBC (Bld) 50.1 % Normal [facility] Comment on above: Order Comment: Speci men Type: BLOOD SPECIMEN [facility] Address: [address] [place] [address] Performed By: #### 2 4362-6 #### [facility] CLIA [id number] [address] [place] [address] [place] Nucleated RBC (Bld) [#/Vol] 10*3/uL Normal <0.01 [facility] Comment on above: Order Comment: Speci men Type: BLOOD SPECIMEN Order[facility] Facility[facility] Address: [address] [place] [id number] Performed By: #### 2 4362-6 #### [facility] CLIA [id number] [address] [place] [address] [place] Nucleated RBC/100 WBC (Bld) [Ratio] 0.0 /100 WBC Normal [facility] Comment on above: Order Comment: Speci men Type: BLOOD SPECIMEN Order[facility] Address: [address] [place] [address] Performed By: #### 2 4362-6 #### [facility] CLIA [id number] [address] [place] [address] [place] Platelet mean volume (Bld) [Entitic vol] 10.3 fL Normal 9.0-12.7 [facility] Comment on above: Order Comment: Speci men Type: BLOOD SPECIMEN Order[facility] Address: [address] [place] [address] Performed By: #### 2 4362-6 #### [facility] CLIA [id number] [address] [place] [address] [place] Platelets (Bld) [#/Vol] 130 10*3/uL Low 150-400 [facility] Comment on above: Order Comment: Speci men Type: BLOOD SPECIMEN Order[facility] Address: [address] [place] [address] Performed By: #### 2 4362-6 #### [facility] CLIA [id number] [address] [place] [address] [place] RBC (Bld) [#/Vol] 5.62 10*6/uL Normal 4.20-6.00 [facility] Comment on above: Order Comment: Speci men Type: BLOOD SPECIMEN Order[facility] Address: [address] [place] [address] Performed By: #### 2 4362-6 #### [facility] CLIA [id number] [address] [place] [address] [place] WBC (Bld) [#/Vol] 5.73 10*3/uL Normal 3.70-11.00 [facility] Comment on above: Order Comment: Speci men Type: BLOOD SPECIMEN [facility] Address: [address] [place] [address] Performed By: #### 2 4362-6 #### [facility] CLIA [id number] [address] [place] [address] [place] Comprehensive metabolic 2000 panelon 10-18-2024 Albumin [Mass/Vol] 4.0 g/dL Normal 3.9-4.9 [facility] Comment on above: Order Comment: Speci men Type: BLOOD SPECIMENOrdering Facility: [facility] Address: [address] [place] [address] Performed By: #### 2 4323-8 ####[facility] [id number] [place] [address] [place] ALP [Catalytic activity/Vol] 142 U/L High 38-113 [facility] Comment on above: Order Comment: Speci men Type: BLOOD SPECIMENOrdering Facility: [facility] Address: [address] [place] [address] Performed By: #### 2 4323-8 ####[facility] [id number] [place] [address] [place] ALT [Catalytic activity/Vol] 17 U/L Normal 10-54 [facility] Comment on above: Order Comment: Speci men Type: BLOOD SPECIMENOrdering Facility: [facility] Address: [address] [place] [address] Performed By: #### 2 4323-8 ####[facility] [id number] [place] [address] [place] Anion gap [Moles/Vol] 7 mmol/L Low 8-15 [facility] Comment on above: Order Comment: Speci men Type: BLOOD SPECIMENOrdering Facility: [facility] Address: [address] [place] [address] Performed By: #### 2 4323-8 ####[facility]CLIA [id number] [place] [address] [place] AST [Catalytic activity/Vol] 17 U/L Normal 14-40 [facility] Comment on above: Order Comment: Speci men Type: BLOOD SPECIMENOrdering Facility: [facility] Address: [address] [place] [address] Performed By: #### 2 4323-8 ####[facility] [id number] [place] [address] [place] Bilirubin [Mass/Vol] 0.5 mg/dL Normal 0.2-1.3 [facility] Comment on above: Order Comment: Speci men Type: BLOOD SPECIMENOrdering Facility: [facility] Address: [address] [place] [address] Performed By: #### 2 4323-8 ####[facility] [id number] [place] [address] [place] Calcium [Mass/Vol] 9.9 mg/dL Normal 8.5-10.2 [facility] Comment on above: Order Comment: Speci men Type: BLOOD SPECIMENOrdering Facility: [facility] Address: [address] [place] [address] Performed By: #### 2 4323-8 ####[facility] [id number] [place] [address] [place] Chloride [Moles/Vol] 106 mmol/L Normal 98-107 [facility] Comment on above: Order Comment: Speci men Type: BLOOD SPECIMENOrdering Facility: [facility] Address: [address] [place], [place] [address] Performed By: #### 2 4323-8 ####[facility] [id number] [address] CO2 [Moles/Vol] 24 mmol/L Normal 22-30 [facility] Comment on above: Order Comment: Speci men Type: BLOOD SPECIMENOrdering Facility: [facility] Address: [address] [place] [address] Performed By: #### 2 4323-8 ####[facility] [id number] [address] Creatinine [Mass/Vol] 0.73 mg/dL Normal 0.73-1.22 [facility] Comment on above: Order Comment: Speci men Type: BLOOD SPECIMENOrdering Facility: [facility] Address: [address] [place] [address] Performed By: #### 2 4323-8 ####[facility] [id number] [address] Creatinine and Glomerular filtration rate.predicted panel (S/P/Bld) 104 mL/min/1.73m??? Normal >=60 [facility] Comment on above: Order Comment: Speci men Type: BLOOD SPECIMENOrdering Facility: [facility] Address: [address] [place] [address] Result Comment: Alee mated Glomerular Filtration Rate [...] Performed By: #### 2 4323-8 ####[facility]ITALWNCLIA [id number] [place] [address] [place] Glucose [Mass/Vol] 159 mg/dL High 74-99 [facility] Comment on above: Order Comment: Speci men Type: BLOOD SPECIMENOrdering Facility: [facility] Address: [address] [place] [address] Result Comment: The [place] Diabetes Association (ADA) provides guidance for cutoff [...] Standards of Medical Care in Diabetes 2016, [place] Diabetes Association. Diabetes Care. 2016.39(Suppl 1). Performed By: #### 2 4323-8 ####[facility] HOSPITALWFRANKYLIDamon [id number] [place] [address] [place] Potassium [Moles/Vol] 3.6 mmol/L Low 3.7-5.1 [facility] Comment on above: Order Comment: Carlo men Type: BLOOD SPECIMENOrdering Facility: [facility] Address: [address] [place] [address] Performed By: #### 2 4323-8 ####[facility]OSPITALWFRANKYLIA [id number] [place] [address] [place] Protein [Mass/Vol] 6.3 g/dL Normal 6.3-8.0 [facility] Comment on above: Order Comment: Speci men Type: BLOOD SPECIMENOrdering Facility: [facility] Address: [address] [place] [address] Performed By: #### 2 4323-8 ####[facility]ITALWNCLIA [id number] [place] [address] [place] Sodium [Moles/Vol] 137 mmol/L Normal 136-144 [facility] Comment on above: Order Comment: Carlo kingsley Type: BLOOD SPECIMENOrdering Facility: [facility] Address: [address] [place] [address] Performed By: #### 2 4323-8 ####[facility] [id number] [place] [address] [place] Urea nitrogen [Mass/Vol] 19 mg/dL Normal 9-24 [facility] Comment on above: Order Comment: Carlo kingsley Type: BLOOD SPECIMENOrdering Facility: [facility] Address: [address] [place] [address] Performed By: #### 2 4323-8 ####[facility] [id number] [place] [address] [place] HbA1c (Bld)on 10-18-2024 Average glucose Estimated from glycated hemoglobin (Bld) [Mass/Vol] 114 mg/dL Normal [facility] Comment on above: Order Comment: Carlo kingsley Type: BLOOD SPECIMEN [facility] Address: [address] [place] [address] Result Comment: eAG: (Estimated average glucose) is a calculated value from HgbA1c and is customer contact representative of the average blood glucose level in the last 2-3 month period. Performed By: #### 2 4362-6 #### [facility] CLIA [id number] [address] [place] [address] [place] HbA1c (Bld) [Mass fraction] 5.6 % Normal 4.3-5.6 [facility] Comment on above: Order Comment: Carlo kingsley Type: BLOOD SPECIMEN [facility] Address: [address] [place] [address] Result Comment: Amer [place] Diabetes Association guidelines indicate that patients with HgbA1c in the range 5.7-6.4% are at increased risk for development of diabetes, and intervention by lifestyle modification may be beneficial. HgbA1c greater or equal to 6.5% is considered diagnostic of diabetes. Performed By: #### 2 4362-6 #### [facility] CLIA [id number] [address] [place] [address] [place] Lipase SerPl-cCncon 10-18-19 25 Lipase [Catalytic activity/Vol] 17 U/L Normal 16-61 [facility] Comment on above: Order Comment: Carlo kingsley Type: BLOOD SPECIMEN [facility] Address: [address] [place] [address] Performed By: #### 2 4362-6 #### [facility] CLIA [id number] [address] [place] [address] [place] Tacrolimus Bld-mCncon 2024 Tacrolimus (Bld) [Mass/Vol] 10.5 ng/mL Normal 5.0-20.0 [facility] Comment on above: Order Comment: Carlo kingsley Type: BLOOD SPECIMENOrdering Facility: [facility] Address: [address] [place] [address] Result Comment: Ruth vidualized target levels for [...] [place] i. Performed By: #### 1 1253-2 ####[facility] LABCLIA [id number] [facility] [id number] [id number] [place] Dick 09-08-2024 KALIAN Telephone (FAMWS) HOMAR FALLON ([id number]) 1965 Date Time Provider Department 09/08/24 LETICIA [...] 1 % cream Class: Normal [facility] [address] [place] Guzman Rhodes September 08, 2024 [...] Encounter Status:Closed by TUNG AGUILAR on 09/08/24 [facility] Georgette 08-23-2024 TOAN Office Visit (YADYWS ) HOMAR FALLON ([id number]) 1965 M Date Time Provider Department 08/23/24 10:40 AM LETICIA JASSO During your visit today, we recorded the following information about you: Pulse Respiration Blood pressure 79/minute 16/minute 118/72 Leticia Jasso APRN.SHINGLE INSPECTOR 08/23/2024 8:06 PM Signed This is a 58 year old male who presents today with: Patient presents with: Recheck: Follow up [facility]- L arm rash HISTORY OF PRESENT ILLNESS: Homar Fallno is a 58 year old male. Patient [...] REQ 2 CATH 2 SITS W/O SUBQ PORT/CLIENT RELATIONS SPECIALIST 09/18/06 LEFT INTERNAL JUGULAR PAST SURGICAL HISTORY [...] SHUNT 10/14/07 [facility] FRANK CVC W/O SUBQ PORT/CLIENT RELATIONS SPECIALIST 02/06/07 Removal of left IJ tessio catheters [...] Ceftin, and (more content not included)... Normal [facility] CNOVon 08-22-2024 CNOV Office Visit (UCWSTR ) HOMAR FALLON ([id number]) 1965 M Date Time Provider Department 08/22/24 9:45 AM YOLY ZUNIGA [facility] During your visit today, we recorded the following information about you: Temperature Pulse Respiration Blood pressure 97 degrees 83/minute 16/minute 133/80 Weight 86.9 kg Yoly Zuniga PA 08/22/2024 9:49 AM Signed This note was created using Dubbriter. Subjective Homar Fallon is a 58 year [...] REQ 2 CATH 2 SITS W/O SUBQ PORT/CLIENT RELATIONS SPECIALIST 09/18/06 LEFT INTERNAL JUGULAR PAST SURGICAL HISTORY [...] SHUNT 10/14/07 [facility] FRANK CVC W/O SUBQ PORT/CLIENT RELATIONS SPECIALIST 02/06/07 Removal of left IJ tessio catheters [...] Patient anand (more content not included)... Normal [facility] URINALYSIS, REFLEX MICROSCOP ICon 01-29-2024 Bilirubin Ql (U) Negative Negative [facility] Clarity (Unsp spec) Clear Clear [facility] Color (U) Light Yellow Yellow [facility] Glucose Test strip (U) [Mass/Vol] Negative Trace, Negative [facility] Hemoglobin Ql (U) Negative Negative, Trace [facility] Interpretation and review of laboratory results Normal [facility] Ketones Ql (U) Negative Negative, Trace [facility] Leukocyte esterase Test strip Ql (U) Negative Negative, 25 Michael/uL [facility] Nitrite Ql (U) Negative Negative [facility] pH (U) 6.0 [pH] 5.0 - 8.0 [facility] Protein (U) [Mass/Vol] Negative Trace, Negative [facility] Specific gravity (U) [Rel density] 1.010 1.005 - 1.030 [facility] Urobilinogen Ql (U) Normal Normal [facility] [place] Stomach Views for gastric emptying solid phase W radionuclide Isabell 12-10-2023 [facility] XR CHEST 2V FRONTAL/LATon [facility] XR UPPER GI SINGLE CONTRASTo n 06-02-2023 [...] which can be seen with esophageal dysmotility. Intermediate Project Manager: TC Transcribe Date/Time: Jun 02 2023 12:23P Dictated by : ALYSSA MUNOZ MD This examination was interpreted and the report reviewed and electronically signed by: ALYSSA MUNOZ MD on Jun 02 2023 12:29PM EST [id number] Normal [facility] EGD Reporton 05-07-2023 EGD Report [facility] Medical Records Department [address] [place] [address] EGD Report MR#: [id number] Acct: [id number] Name: HOMAR FALLON Rep #: [id number] : 1965 57 From: David Barraza DO PCP: Dr. Tung Aguilar MD Status[facility] Patient Name: Homar Fallon Procedure Date: 05/07/2023 [...] present medications. Procedure Code(s): --- Professional --- 71346, Esophagogastroduodenoscopy, flexible, transoral; diagnostic, including collection of specimen(s) by brushing or washing, when performed (separate procedure) CPT copyright 2017 [employer]. All rights reserved. The codes documented in this report are preliminary and upon medical billing coder review may be revised to meet current compliance requirements. David Barraza DO 05/07/2023 8:03:55 AM This report has been signed electronically. Number of Addenda: 0 Note Initiated On: 05/07/2023 7:38 AM 05/07/23 0804 Date David Barraza DO Cosigner Signature: Date (if indicated) CC: Dr. Tung Aguilar MD; David Barraza DO Date Dictated: 05/07/23737 Date Transcribed: Intermediate Project Manager: DELLA Signed Normal [facility] Gastroenterology Visit Repor ton 02-18-2023 Gastroenterology Visit Report [facility] Gastroenterology [address] [place] [address] OFFICE VISIT Date of Service: 02/18/23 MR#: [id number] Acct: [id number] Name: HOMAR FALLON Rep #: [id number] : 1965 Provider: AMIE Ann Age/Sex: 57/M [place] [facility] Status: Signed with Addenda ADDENDUM by AMIE Ann on 03/18/23 at 1137 HPI Details: [id number] 03/18/23 1137 Date Griselda Ann NP cc: [...] mg PO DAILY 12/26/21 [History Confirmed 02/18/23] ceozrd-swfctbef-qzalhxx 36,000-114,000-180,000 unit capsule,delay rel (Creon) See Rx [...] (Reviewed 02/18/23 @ 08:16 by Griselda Ann DOOR AND ARRIVAL ATTENDANT, DOOR AND ARRIVAL ATTENDANT-C) Father Cancer Hypertension Diabetes Mother Hypertension Diabetes Social History (Reviewed 02/18/23 @ 08:16 by Griselda Ann DOOR AND ARRIVAL ATTENDANT, DOOR AND ARRIVAL ATTENDANT-C) Smoking Status: Never smoker alcohol intake: never [...] doctor 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 Normal [facility] URINALYSIS, REFLEX MICROSCOP ICon 02-04-2023 Bilirubin Ql (U) Negative Negative [facility] Clarity (Unsp spec) Clear Clear Miguel [facility] Color (U) Light Yellow Yellow [facility] Glucose Test strip (U) [Mass/Vol] Negative Trace, Negative [facility] Hemoglobin Ql (U) Negative Negative, Trace [facility] Ketones Ql (U) Negative Negative, Trace [facility] Leukocyte esterase Test strip Ql (U) Negative Negative, 25 Michael/uL [facility] Nitrite Ql (U) Negative Negative [facility] pH (U) 6.0 [pH] 5.0 - 8.0 [facility] Protein (U) [Mass/Vol] Negative Trace, Negative [facility] Specific gravity (U) [Rel density] 1.008 1.005 - 1.030 [facility] Urobilinogen Ql (U) Negative Negative [facility] CNOVon 12-10-2022 CNOV Office Visit (AKURFL ) HOMAR FALLON ([id number]) 1965 M TRN Date Time Provider Department [...] Date Value 01/10/2022 Negative 07/13/2015 Negative Specific [place], [facility] (no units) Date Value 01/10/2022 1.011 [...] Memory: Memory normal. Risk/Benefit Discussion: FOLLOW UP ([id number]; 3s): Return if symptoms worsen or fail to improve. ASSESSMENT/PLAN: 1. Elevated PSA - ICD9: 790.93, ICD10: R97.20 Isha Coleman Please note: This note has been produced using speech recogni (more content not included)... Normal [facility] UA DIP, URINE (POC)on 2022 BILIRUBIN UA (POCT) Negative Negative [facility] CLARITY UA (POCT) Clear [facility] COLOR UA (POCT) Yellow [facility] GLUCOSE UA (POCT) Negative Negative mg/dL [facility] HEMOGLOBIN/BLOOD UA (POCT) Negative Negative [facility] KETONE UA (POCT) Negative Negative mg/dL [facility] LEUKOCYTES UA (POCT) Negative Negative [facility] NITRITE UA (POCT) Negative Negative [facility] PH UA (POCT) 6.5 4.5 - 8.0 [facility] Protein Ql (U) Negative Negative mg/dL [facility] SPECIFIC GRAVITY UA (POCT) 1.010 1.005 - 1.030 [facility] UROBILINOGEN UA (POCT) 0.2 E.U./dL Normal E.U./dL [facility] CNOVon 09-09-2022 CNOV Office Visit (AKURFL ) HOMAR FALLON ([id number]) 1965 M [facility] Date Time Provider Department 09/09/22 10:00 AM [...] Date Value 01/10/2022 Negative 07/13/2015 Negative Specific [place] (no units) Date Value 01/10/2022 1.011 [...] Rectum: Norm (more content not included)... Normal [facility] UA DIP, URINE (POC)on 2021 BILIRUBIN UA (POCT) Negative Negative [facility] CLARITY UA (POCT) Clear [facility] COLOR UA (POCT) Yellow [facility] GLUCOSE UA (POCT) Negative Negative mg/dL [facility] HEMOGLOBIN/BLOOD UA (POCT) Negative Negative [facility] KETONE UA (POCT) Negative Negative mg/dL [facility] LEUKOCYTES UA (POCT) Negative Negative [facility] NITRITE UA (POCT) Negative Negative [facility] PH UA (POCT) 6.0 4.5 - 8.0 [facility] Protein Ql (U) Negative Negative mg/dL [facility] SPECIFIC GRAVITY UA (POCT) 1.020 1.005 - 1.030 [facility] UROBILINOGEN UA (POCT) 0.2 E.U./dL Normal E.U./dL [facility] Gastroenterology Visit Repor ton 08-13-2022 Gastroenterology Visit Report [facility]enter[facility] [address] [place] [address] OFFICE VISIT Date of Service: 08/13/22 MR#: [id number] Acct: [id number] Name: HOMAR FALLON Rep #: [id number] : 1965 Provider: David Barraza DO Age/Sex: 56/M [place] [facility] [place] Status: Signed Intake Vital Signs 05/31/22 08:31 [...] mg PO DAILY 12/26/21 [History Confirmed 07/25/22] [id number] 36,000-114,000-180,000 unit capsule,delay rel (Creon) See Rx Instructions PO TID 3 months #270 caps 08/13/22 [Rx Confirmed 08/13/22] [facility] Medical History (Updated 08/13/22 @ 08:37 by [...] behavioral zhang (more content not included)... Normal [facility] US PROSTATEon 08-12-2022 US PROSTATE * * [...] possible nodule measuring up to 1.3 cm. Intermediate Project Manager: TC Transcribe Date/Time: Aug 12 2022 1:54P Dictated by : LEO STONE MD This examination was interpreted and the report reviewed and electronically signed by: LEO STONE MD on Aug 12 2022 1:55PM EST [id number] [facility] EGD Reporton 07-29-2022 EGD Report [facility] Medical Records Department [address] [place] [address] EGD Report MR#: [id number] Acct: [id number] Name: HOMAR FALLON Rep #: [id number] : 1965 56 From: David Friend DO PCP: Dr. Tung Aguilar MD Status:[facility] Patient Name: Homar Fallon Procedure Date: 07/29/2022 [...] meals daily. Procedure Code(s): --- Professional --- 58242, Esophagogastroduodenoscopy, flexible, transoral; diagnostic, including collection of specimen(s) by brushing or washing, when performed (separate procedure) CPT copyright 2017 [employer]. All rights reserved. The codes documented in this report are preliminary and upon medical billing coder review may be revised to meet current compliance requirements. David Barraza DO 07/29/2022 12:20:49 PM This report has been signed electronically. Number of Addenda: 0 Note Initiated On: 07/29/2022 11:57 AM 07/29/22 1221 Date David Barraza DO Cosigner Signature: Date (if indicated) CC: Dr. Tung Aguilar MD; David Barraza DO Date Dictated: 07/29/22 1157 Date Transcribed: Intermediate Project Manager: DELLA Signed Normal [facility] URINALYSIS, REFLEX MICROSCOP ICon 01-10-2022 Bilirubin Ql (U) Negative Negative [facility] Clarity (Unsp spec) Clear Clear Miguel [facility] Color (U) Yellow Yellow [facility] Glucose Test strip (U) [Mass/Vol] Negative Negative [facility] Hemoglobin Ql (U) Negative Negative [facility] Ketones Ql (U) Negative Negative [facility] Leukocyte esterase Test strip Ql (U) Negative Negative [facility] Nitrite Ql (U) Negative Negative [facility] pH (U) 6.0 [pH] 5.0 - 8.0 [facility] Protein (U) [Mass/Vol] Negative Negative [facility] Specific gravity (U) [Rel density] 1.011 1.005 - 1.030 [facility] Urobilinogen Ql (U) Negative Negative [facility] Vital Signs Date Time Vital Sign Value Performing Clinician Ray louie 02-07-2025 08:18-0400 Body height 175.3 cm Mehran Urrutia APRN.SHINGLE INSPECTOR Work Phone: [facility] 02-07-2025 08:18-0400 Body mass index (BMI) [Ratio] 29.14 kg/m2 Mehran Urrutia APRN.SHINGLE INSPECTOR Work Phone: [facility] 02-07-2025 08:18-0400 Body weight 89.5 kg Mehran Urrutia APRN.SHINGLE INSPECTOR Work Phone: [facility] 02-07-2025 08:18-0400 Diastolic blood pressure 68 mm[Hg] Mehran Urrutia APRN.SHINGLE INSPECTOR Work Phone: [facility] 02-07-2025 08:18-0400 Heart rate 87 /min Mehran Urrutia APRN.SHINGLE INSPECTOR Work Phone: [facility] 02-07-2025 08:18-0400 Systolic blood pressure 122 mm[Hg] Mehran Urrutia APRN.SHINGLE INSPECTOR Work Phone: [facility] 10-22-2024 09:12-0500 Body height 176.5 cm Tung Aguilar MD Work Phone: [facility] 10-22-2024 09:12-0500 Body mass index (BMI) [Ratio] 28.69 kg/m2 Tung Aguilar MD Work Phone: [facility] 10-22-2024 09:12-0500 Body weight 89.4 kg Tung Aguilar MD Work Phone: [facility] 10-22-2024 09:12-0500 Diastolic blood pressure 80 mm[Hg] Tung Aguilar MD Work Phone: [facility] 10-22-2024 09:12-0500 Heart rate 86 /min Tung Aguilar MD Work Phone: [facility] 10-22-2024 09:12-0500 SaO2% (BldA) [Mass fraction] 97 % Tung Aguilar MD Work Phone: [facility] 10-22-2024 09:12-0500 Systolic blood pressure 130 mm[Hg] Tung Aguilar MD Work Phone: [facility] 08-23-2024 10:24-0500 Diastolic blood pressure 72 mm[Hg] Leticia Haagen ALODIZE MACHINE HELPER.SHINGLE INSPECTOR Work Phone: [facility] 08-23-2024 10:24-0500 Heart rate 79 /min Leticia Haagen ALODIZE MACHINE HELPER.SHINGLE INSPECTOR Work Phone: [facility] 08-23-2024 10:24-0500 Respiratory rate 16 /min Leticia Haagen ALODIZE MACHINE HELPER.SHINGLE INSPECTOR Work Phone: [facility] 08-23-2024 10:24-0500 SaO2% (BldA) [Mass fraction] 97 % Leticia Haagen ALODIZE MACHINE HELPER.SHINGLE INSPECTOR Work Phone: [facility] 08-23-2024 10:24-0500 Systolic blood pressure 118 mm[Hg] Leticia Haagen ALODIZE MACHINE HELPER.SHINGLE INSPECTOR Work Phone: [facility] 08-22-2024 09:35-0500 Body mass index (BMI) [Ratio] 27.89 kg/m2 Krislyn Aberegg PA Work Phone: [facility] 08-22-2024 09:35-0500 Body temperature 97 [degF] Krislyn Aberegg PA Work Phone: [facility] 08-22-2024 09:35-0500 Body weight 86.9 kg Krislyn Aberegg PA Work Phone: [facility] 08-22-2024 09:35-0500 Diastolic blood pressure 80 mm[Hg] Krislyn Aberegg PA Work Phone: [facility] 08-22-2024 09:35-0500 Heart rate 83 /min Krislyn Aberegg PA Work Phone: [facility] 08-22-2024 09:35-0500 Respiratory rate 16 /min Krislyn Aberegg PA Work Phone: [facility] 08-22-2024 09:35-0500 SaO2% (BldA) [Mass fraction] 98 % Krislyn Aberegg PA Work Phone: [facility] 08-22-2024 09:35-0500 Systolic blood pressure 133 mm[Hg] Krislyn Aberegg PA Work Phone: [facility] 01-29-2024 08:29-0400 Body height 176.5 cm Mehran Urrutia APRN.SHINGLE INSPECTOR Work Phone: [facility] 01-29-2024 08:29-0400 Body mass index (BMI) [Ratio] 28.91 kg/m2 Mehran Urrutia APRN.SHINGLE INSPECTOR Work Phone: [facility] 01-29-2024 08:29-0400 Body temperature 98.2 [degF] Mehran Urrutia APRN.SHINGLE INSPECTOR Work Phone: [facility] 01-29-2024 08:29-0400 Body weight 90.1 kg Mehran Urrutia APRN.SHINGLE INSPECTOR Work Phone: [facility] 01-29-2024 08:29-0400 Diastolic blood pressure 66 mm[Hg] Mehran Urrutia APRN.SHINGLE INSPECTOR Work Phone: [facility] 01-29-2024 08:29-0400 Heart rate 80 /min Mehran Urrutia APRN.SHINGLE INSPECTOR Work Phone: [facility] 01-29-2024 08:29-0400 Systolic blood pressure 118 mm[Hg] Mehran Urrutia APRN.SHINGLE INSPECTOR Work Phone: [facility] 12-19-2023 12:54-0400 Body height 175.3 cm Sandrine Julien MD Work Phone: [facility] 12-19-2023 12:54-0400 Body weight 89.99 kg Sandrine Julien MD Work Phone: [facility] 12-19-2023 12:54-0400 Diastolic blood pressure 63 mm[Hg] Sandrine Julien MD Work Phone: [facility] 12-19-2023 12:54-0400 Heart rate 84 /min Sandrine Julien MD Work Phone: [facility] 12-19-2023 12:54-0400 Systolic blood pressure 114 mm[Hg] Sandrine Julien MD Work Phone: [facility] 06-20-2023 14:31-0400 Body height 175.3 cm Sandrine Julien MD Work Phone: [facility] 06-20-2023 14:31-0400 Body weight 86.91 kg Sandrine Julien MD Work Phone: [facility] 06-20-2023 14:31-0400 Diastolic blood pressure 59 mm[Hg] Sandrine Julien MD Work Phone: [facility] 06-20-2023 14:31-0400 Heart rate 78 /min Sandrine Julien MD Work Phone: [facility] 06-20-2023 14:31-0400 Systolic blood pressure 119 mm[Hg] Sandrine Julien MD Work Phone: [facility] 06-03-2023 09:15-0400 Body height 175.3 cm Pacc 1 [facility] 06-03-2023 08:49-0400 Body temperature 97.5 [degF] Pacc 1 [facility] 06-03-2023 08:49-0400 Body weight 90.36 kg Pacc 1 [facility] 06-03-2023 08:49-0400 Diastolic blood pressure 70 mm[Hg] Pacc 1 [facility] 06-03-2023 08:49-0400 Heart rate 84 /min Pacc 1 [facility] 06-03-2023 08:49-0400 SaO2% (BldA) [Mass fraction] 99 % Pacc 1 [facility] 06-03-2023 08:49-0400 Systolic blood pressure 112 mm[Hg] Pacc 1 [facility] 05-30-2023 13:56-0400 Body height 175.3 cm Sandrine Julien MD Work Phone: [facility] 05-30-2023 13:56-0400 Body weight 90.67 kg Sandrine Julien MD Work Phone: [facility] 05-30-2023 13:56-0400 Diastolic blood pressure 59 mm[Hg] Sandrine Julien MD Work Phone: [facility] 05-30-2023 13:56-0400 Heart rate 75 /min Sandrine Julien MD Work Phone: [facility] 05-30-2023 13:56-0400 Systolic blood pressure 133 mm[Hg] Sandrine Julien MD Work Phone: [facility] 05-07-2023 08:10-0400 Body temperature 97.9 [degF] Dr. Tung Aguilar Work Phone: 8(572)597-217834 [place] [address] 05-07-2023 08:10-0400 Diastolic blood pressure 61 mm[Hg] Dr. Tung Aguilar Work Phone: 6(084)957-994234 [place] [address] 05-07-2023 08:10-0400 Heart rate 75 /min Dr. Tung Aguilar Work Phone: 7(529)950-317584 [place] [address] 05-07-2023 08:10-0400 Respiratory rate 16 /min Dr. Tung Aguilar Work Phone: 6(081)608-305384 [place] [address] 05-07-2023 08:10-0400 SaO2% (BldA) [Mass fraction] 97 % Dr. Tung Aguilar Work Phone: [facility] 05-07-2023 08:10-0400 Systolic blood pressure 100 mm[Hg] Dr. Tung Aguilar Work Phone: 1(507)564-844434 [place] [address] 05-07-2023 07:05-0400 Body height 175.[address] Tung Aguilar Work Phone: [facility] 05-07-2023 07:05-0400 Body mass index (BMI) [Ratio] 29.8 kg/m2 Dr. Tung Aguilar Work Phone: 8(476)314-197034 [place] [address] 05-07-2023 07:05-0400 Body weight 91.[address] Tung Aguilar Work Phone: [facility] 04-17-2023 09:36-0400 Diastolic blood pressure 60 mm[Hg] Tung Aguilar MD Work Phone: [facility] 04-17-2023 09:36-0400 Systolic blood pressure 116 mm[Hg] Tung Aguilar MD Work Phone: [facility] 04-17-2023 09:09-0400 Body height 175.3 cm Tung Aguilar MD Work Phone: [facility] 04-17-2023 09:09-0400 Body weight 90.99 kg Tung Aguilar MD Work Phone: [facility] 04-17-2023 09:09-0400 Heart rate 67 /min Tung Aguilar MD Work Phone: [facility] 04-17-2023 09:09-0400 SaO2% (BldA) [Mass fraction] 95 % Tung Aguilar MD Work Phone: [facility] 02-18-2023 08:11-0400 Body mass index (BMI) [Ratio] 27.4 kg/m2 Dr. Tung Aguilar Work Phone: [facility] 02-18-2023 08:11-0400 Body weight 84.[address] Tung Aguilar Work Phone: [facility] 02-18-2023 08:11-0400 Diastolic blood pressure 68 mm[Hg] Dr. Tung Aguilar Work Phone: [facility] 02-18-2023 08:11-0400 Heart rate 82 /min Dr. Tung Aguilar Work Phone: [facility] 02-18-2023 08:11-0400 SaO2% (BldA) [Mass fraction] 95 % Dr. Tung Aguilar Work Phone: [facility] 02-18-2023 08:11-0400 Systolic blood pressure 113 mm[Hg] Dr. Tung Aguilar Work Phone: [facility] 02-04-2023 08:21-0400 Body height 175.3 cm Mehran Urrutia ALODIZE MACHINE HELPER.SHINGLE INSPECTOR Work Phone: [facility] 02-04-2023 08:21-0400 Body temperature 97.2 [degF] Mehran Urrutia ALODIZE MACHINE HELPER.SHINGLE INSPECTOR Work Phone: [facility] 02-04-2023 08:21-0400 Body weight 93.62 kg Mehran Urrutia ALODIZE MACHINE HELPER.SHINGLE INSPECTOR Work Phone: [facility] 02-04-2023 08:21-0400 Diastolic blood pressure 71 mm[Hg] Mehran Urrutia ALODIZE MACHINE HELPER.SHINGLE INSPECTOR Work Phone: [facility] 02-04-2023 08:21-0400 Heart rate 81 /min Mehran Urrutia ALODIZE MACHINE HELPER.SHINGLE INSPECTOR Work Phone: [facility] 02-04-2023 08:21-0400 Systolic blood pressure 112 mm[Hg] Mehran Urrutia ALODIZE MACHINE HELPER.SHINGLE INSPECTOR Work Phone: [facility] 12-10-2022 10:49-0500 Body height 176.5 cm Isha Coleman MD Work Phone: [facility] 12-10-2022 10:49-0500 Body weight 85.28 kg Isha Coleman MD Work Phone: [facility] 12-10-2022 10:49-0500 Diastolic blood pressure 70 mm[Hg] Isha Coleman MD Work Phone: [facility] 12-10-2022 10:49-0500 Systolic blood pressure 132 mm[Hg] Isha Coleman MD Work Phone: [facility] 10-17-2022 10:09-0500 Diastolic blood pressure 64 mm[Hg] Tung Aguilar MD Work Phone: [facility] 10-17-2022 10:09-0500 Systolic blood pressure 128 mm[Hg] Tung Aguilar MD Work Phone: [facility] 10-17-2022 09:37-0500 Body height 175.3 cm Tung Aguilar MD Work Phone: [facility] 10-17-2022 09:37-0500 Body weight 92.99 kg Tung Aguilar MD Work Phone: [facility] 10-17-2022 09:37-0500 Heart rate 63 /min Tung Aguilar MD Work Phone: [facility] 10-17-2022 09:37-0500 SaO2% (BldA) [Mass fraction] 95 % Tung Aguilar MD Work Phone: [facility] 09-09-2022 09:46-0500 Body height 175.3 cm Isha Coleman MD Work Phone: [facility] 09-09-2022 09:46-0500 Body weight 86.18 kg Isha Coleman MD Work Phone: [facility] 09-09-2022 09:46-0500 Respiratory rate 16 /min Isha Coleman MD Work Phone: [facility] 08-08-2022 13:59-0400 Body weight 86.18 kg NA Almanza PA-C Work Phone: [facility] 08-08-2022 13:59-0400 Diastolic blood pressure 62 mm[Hg] NA Almanza PA-C Work Phone: [facility] 08-08-2022 13:59-0400 Heart rate 85 /min NA Almanza PA-C Work Phone: [facility] 08-08-2022 13:59-0400 Respiratory rate 16 /min NA Almanza PA-C Work Phone: [facility] 08-08-2022 13:59-0400 SaO2% (BldA) [Mass fraction] 96 % NA Almanza PA-C Work Phone: [facility] 08-08-2022 13:59-0400 Systolic blood pressure 128 mm[Hg] NA Almanza PA-C Work Phone: [facility] 04-19-2022 08:25-0400 Body height 175.[address] Tung Aguilar Work Phone: [facility] Work Phone: 04-19-2022 08:25-0400 Body mass index (BMI) [Ratio] 28.9 kg/m2 Dr. Tung Aguilar Work Phone: [facility] Work Phone: 04-19-2022 08:25-0400 Body weight 88.[address] Tung Aguilar Work Phone: [facility] Work Phone: 04-19-2022 08:25-0400 Diastolic blood pressure 72 mm[Hg] Dr. Tung Aguilar Work Phone: [facility] Work Phone: 04-19-2022 08:25-0400 Heart rate 78 /min Dr. Tung Aguilar Work Phone: [facility] Work Phone: 04-19-2022 08:25-0400 SaO2% (BldA) [Mass fraction] 96 % Dr. Tung Aguilar Work Phone: [facility] Work Phone: 04-19-2022 08:25-0400 Systolic blood pressure 137 mm[Hg] Dr. Tung Aguilar Work Phone: [facility] Work Phone: 04-16-2022 15:37-0400 Diastolic blood pressure 60 mm[Hg] Tung Aguilar MD Work Phone: [facility] 04-16-2022 15:37-0400 Systolic blood pressure 110 mm[Hg] Tung Aguilar MD Work Phone: [facility] 04-16-2022 14:51-0400 Body weight 88 kg Tung Aguilar MD Work Phone: [facility] 04-16-2022 14:51-0400 Heart rate 75 /min Tung Aguilar MD Work Phone: [facility] 04-16-2022 14:51-0400 Respiratory rate 16 /min Tung Aguilar MD Work Phone: [facility] 04-16-2022 14:51-0400 SaO2% (BldA) [Mass fraction] 98 % Tung Aguilar MD Work Phone: [facility] 04-05-2022 07:39-0400 Body temperature 97.5 [degF] Dr. Tung Aguilar Work Phone: [facility] Work Phone: 04-05-2022 07:39-0400 Diastolic blood pressure 70 mm[Hg] Dr. Tung Aguilar Work Phone: [facility] Work Phone: 04-05-2022 07:39-0400 Heart rate 70 /min Dr. Tung Aguilar Work Phone: [facility] Work Phone: 04-05-2022 07:39-0400 Respiratory rate 16 /min Dr. Tung Aguilar Work Phone: [facility] Work Phone: 04-05-2022 07:39-0400 SaO2% (BldA) [Mass fraction] 96 % Dr. Tung Aguilar Work Phone: [facility] Work Phone: 04-05-2022 07:39-0400 Systolic blood pressure 137 mm[Hg] Dr. Tung Aguilar Work Phone: [facility] Work Phone: 04-05-2022 06:32-0400 Body height 175.[address] Tung Aguilar Work Phone: [facility] Work Phone: 04-05-2022 06:32-0400 Body mass index (BMI) [Ratio] 28.3 kg/m2 Dr. Tung Aguilar Work Phone: [facility] Work Phone: 04-05-2022 06:32-0400 Body weight [address] Tung Aguilar Work Phone: [facility] Work Phone: 01-10-2022 09:48-0400 Body height 175.3 cm Mehran Urrutia ALODIZE MACHINE HELPER.SHINGLE INSPECTOR Work Phone: [facility] 01-10-2022 09:48-0400 Body temperature 97.3 [degF] Mehran Urrutia ALODIZE MACHINE HELPER.SHINGLE INSPECTOR Work Phone: [facility] 01-10-2022 09:48-0400 Body weight 87.09 kg Mehran Urrutia ALODIZE MACHINE HELPER.SHINGLE INSPECTOR Work Phone: [facility] 01-10-2022 09:48-0400 Diastolic blood pressure 71 mm[Hg] Mehran Urrutia ALODIZE MACHINE HELPER.SHINGLE INSPECTOR Work Phone: [facility] 01-10-2022 09:48-0400 Heart rate 78 /min Mehran Urrutia ALODIZE MACHINE HELPER.SHINGLE INSPECTOR Work Phone: [facility] 01-10-2022 09:48-0400 Systolic blood pressure 116 mm[Hg] Mehran Urrutia ALODIZE MACHINE HELPER.SHINGLE INSPECTOR Work Phone: [facility] Encounters Encounter Date Encounter Type Care Provider Facility Start: 08-03-2025 ambulatory ALICIA A SUPPWALLACE Facility:[facility] Start: 08-02-2025 ambulatory ALICIA A SUPPAN Facility:[facility] Start: 08-02-2025 End: 08-02-2025 ambulatory ALICIA A SUPPWALLACE Facility:[facility] Start: 07-28-2025 End: 07-28-2025 ambulatory MEHRAN URRUTIA Facility:[facility] Start: 05-11-2025 End: 05-11-2025 ambulatory TUNG AGUILAR Facility:[facility] Start: 05-11-2025 Patient encounter procedure TUNG AGUILAR [facility] Start: 05-09-2025 End: 05-09-2025 ambulatory MEHRAN URRUTIA Facility:[facility] Start: 03-16-2025 End: 03-18-2025 Refill Mehran Urrutia ALODIZE MACHINE HELPER.SHINGLE INSPECTOR Work Phone: [facility] Comment on above: Refill Request Start: 03-10-2025 End: 03-10-2025 ambulatory [facility] Start: 03-10-2025 End: 03-10-2025 Patient encounter procedure Tung Aguilar MD Work Phone: [facility] Comment on above: Population Health Na vigation Outreach (Timothy Ardon ) Start: 02-07-2025 End: 02-07-2025 Patient encounter procedure Mehran Urrutia APRN.SHINGLE INSPECTOR Work Phone: [facility] [place] Comment on above: Kidney replaced by t ransplant (HCC) (Primary Dx); 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); 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); Thrombocytopenia; Pure hypercholesterolemia; Aftercare following organ transplant; Orthostatic hypotension; Screening for genitourinary condition Start: 02-07-2025 End: 02-10-2025 ambulatory Mehran Urrutia APRN.SHINGLE INSPECTOR Work Phone: [facility] [place] Start: 02-04-2025 End: 02-04-2025 ambulatory MEHRAN URRUTIA Facility:[facility] Start: 02-03-2025 End: 02-03-2025 Orders Only Mehran Urrutia APRN.SHINGLE INSPECTOR Work Phone: [facility] [place] Comment on above: Kidney replaced by t ransplant (HCC) (Primary Dx) Start: 10-23-2024 End: 10-25-2024 Telephone encounter Tung Aguilar MD Work Phone: [facility] Comment on above: Results Start: 10-22-2024 End: 10-22-2024 Patient encounter procedure Tung Aguilar MD Work Phone: [facility] Comment on above: Essential hypertensi on (Primary Dx); 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); Pure hypercholesterolemia; 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); Gastroparesis; Kidney replaced by transplant; 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); Immunosuppression (HCC); Thrombocytopenia (HCC); Dermatitis Start: 10-22-2024 End: 10-22-2024 [facility] Start: 10-18-2024 End: 10-18-2024 ambulatory MEHRAN Annamaria URRUTIA Facility:[facility] Start: 09-08-2024 End: 09-08-2024 Telephone encounter Leticia Jasso APRN.SHINGLE INSPECTOR Work Phone: [facility] Comment on above: Refill Request Start: 08-23-2024 End: 08-23-2024 ambulatory LETICIA HALORENA Facility:[facility] Start: 08-23-2024 End: 08-23-2024 Office outpatient visit 25 minutes Leticia Jasso ALODIZE MACHINE HELPER.SHINGLE INSPECTOR Work Phone: [facility] Comment on above: Erythema migrans (Pr imary Dx) Start: 08-22-2024 End: 08-22-2024 ambulatory [facility] Facility:[facility] Start: 08-22-2024 End: 08-22-2024 Patient encounter procedure Yoly CORBIN Work Phone: [facility] Comment on above: Rash (Primary Dx) Start: 06-15-2024 End: 06-18-2024 Refill Mehran Urrutia ALODIZE MACHINE HELPER.SHINGLE INSPECTOR Work Phone: [facility] [place] Comment on above: Refill Request Start: 01-29-2024 ambulatory Mehran agee ALODIZE MACHINE HELPER.SHINGLE INSPECTOR Work Phone: [facility] [place] Start: 01-29-2024 End: 01-29-2024 Patient encounter procedure Mehran Urrutia ALODIZE MACHINE HELPER.SHINGLE INSPECTOR Work Phone: [facility] [place] Comment on above: Kidney replaced by t ransplant (Primary Dx); Need for prophylactic immunotherapy; 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); 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); Aftercare following organ transplant; Thrombocytopenia (HCC) Start: 12-27-2023 Refill Mehran agee ALODIZE MACHINE HELPER.SHINGLE INSPECTOR Work Phone: [facility] [place] Comment on above: Refill Request Start: 12-19-2023 End: 12-19-2023 Patient encounter procedure Sandrine Julien MD Work Phone: General Surgery Comment on above: Gastroparesis (Prima ry Dx) Start: 12-10-2023 End: 12-10-2023 Subsequent hospital visit by physician [facility] Comment on above: Gastroparesis [K31.8 4] Start: 08-14-2023 ambulatory Rosa Eaton ach MA [facility] Comment on above: Population Health Na vigation Outreach (ACO CARE GAP) Start: 08-12-2023 Refill Mehran agee APRN.SHINGLE INSPECTOR Work Phone: Kidney Medicine [facility] Comment on above: Refill Request results Start: 07-15-2023 ambulatory Daviddebi Barraza Facility :[facility] Start: 06-20-2023 End: 06-20-2023 Patient encounter procedure Sandrine Julien MD Work Phone: General Surgery Comment on above: Gastroparesis (Prima ry Dx) Start: 06-03-2023 End: 06-03-2023 Admission to establishment [address] Start: 06-03-2023 End: 06-03-2023 ambulatory [facility] 1 Pre Admission [facility] Comment on above: Pre-op evaluation (P rimary Dx); Essential hypertension; Pure hypercholesterolemia; Gastroesophageal reflux disease without esophagitis; Kidney replaced by transplant; 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) Start: 06-03-2023 End: 06-03-2023 Preprocedural examination done Pac 1 [facility] Work Phone: Start: 06-02-2023 End: 06-02-2023 Preprocedural examination done Xr Mob Work Phone: [facility] Start: 06-02-2023 End: 06-02-2023 Subsequent hospital visit by physician Xr [facility] [place] [facility] Work Phone: Radiology Comment on above: Gastric bezoar, init ial encounter [T18.2XXA] Start: 06-02-2023 ambulatory SANDRINE JULIEN Facility:[id number] Start: 06-02-2023 End: 06-02-2023 Subsequent hospital visit by physician Gi/Gu [facility] Comment on above: Bezoar, initial enco unter [...] ation done Sandrine Julien MD Work Phone: [facility] Start: 05-07-2023 ambulatory David Barraza [facility] Start: 05-07-2023 End: 05-07-2023 [facility] Start: 05-07-2023 Non-patient / Non-visit Dr. Ynes Aguilar Work Phone: [facility] Start: 05-07-2023 End: 05-07-2023 Admission to same day surgery center Dr. Tung Aguilar Work Phone: [facility] Work Phone: Start: 05-07-2023 End: 05-07-[address] Tung Aguilar Work Phone: [facility] Work Phone: Start: 04-17-2023 End: 04-17-2023 Patient encounter procedure Tung Aguilar MD Work Phone: [facility] [place] Comment on above: Pure hypercholestero lemia (Primary [...] encounter procedure Dr. Tung Aguilar Work Phone: [facility] Gastroenter[facility] Work Phone: Start: 02-04-2023 ambulatory Mehran agee ALODIZE MACHINE HELPER.SHINGLE INSPECTOR Work Phone: [facility] [place] Start: 02-04-2023 End: 02-04-2023 Patient encounter procedure Mehran Urrutia ALODIZE MACHINE HELPER.SHINGLE INSPECTOR Work Phone: [facility] [place] Comment on above: Kidney replaced by t ransplant (Primary Dx); 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); 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); Aftercare following organ transplant; Thrombocytopenia (HCC) Start: 12-30-2022 ambulatory Isabel ghosh [place] [facility] Comment on above: Population Health Na vigation Outreach (ACO Care Gaps) Start: 12-10-2022 End: 12-10-2022 ambulatory ISHA COLEMAN Facility:[facility] Start: 12-10-2022 End: 12-10-2022 Patient encounter procedure Isha Coleman MD Work Phone: [facility] Comment on above: Elevated PSA (Primar y Dx) Start: 11-01-2022 Refill Mehran agee ALODIZE MACHINE HELPER.SHINGLE INSPECTOR Work Phone: [facility] [place] Comment on above: Med Change Request Start: 10-17-2022 End: 10-17-2022 Patient encounter procedure Tung Aguilar MD Work Phone: [facility] Comment on above: Polyneuropathy due t o type 2 diabetes mellitus (HCC) (Primary Dx); 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); 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); Pure hypercholesterolemia; Essential hypertension; Gastroparesis; Gastroesophageal reflux disease without esophagitis; Kidney replaced by transplant Start: 09-11-2022 ambulatory Rosa felix MA [facility] Comment on above: Population Health Na vigation Outreach (ACO [place] PCSA) Start: 09-09-2022 End: 09-09-2022 ambulatory ISHA COLEMAN Facility:[facility] Start: 09-09-2022 End: 09-09-2022 Patient encounter procedure Isha Coleman MD Work Phone: [facility] Comment on above: Elevated PSA; Abnormal ultrasound Start: 08-14-2022 Telephone encounter Tung Aguilar MD Work Phone: [facility] Comment on above: Results; Appointment Start: 08-13-2022 End: 08-13-2022 ambulatory [facility] Facility[facility] Start: 08-12-2022 ambulatory LESLI ALMANZA Facility[facility] Start: 08-12-2022 End: 08-12-2022 Subsequent hospital visit by physician [facility] 4 Work Phone: Radiology Comment on above: Elevated PSA [R97.20 ] Start: 08-08-2022 End: 08-08-2022 Patient encounter procedure Suleiman Almanza PA-C Work Phone: [facility] Comment on above: Elevated PSA (Primar y Dx) Start: 08-05-2022 Telephone encounter Suleiman Almanza PA-C Work Phone: [facility] Comment on above: Results Start: 07-29-2022 ambulatory David Barraza [facility] Start: 07-29-2022 End: 07-29-2022 ambulatory [facility]ung [place] Facility:[facility] Start: 07-15-2022 Refill Mehran agee ALODIZE MACHINE HELPER.SHINGLE INSPECTOR Work Phone: [facility] [place] Comment on above: Refill Request Start: 06-16-2022 Refill Mehran agee ALODIZE MACHINE HELPER.SHINGLE INSPECTOR Work Phone: [facility] Comment on above: Refill Request Start: 05-09-2022 End: 05-09-[address] Tung Aguilar Work Phone: [facility] Start: 04-19-2022 End: 04-19-[address] 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 Ynes Aguilar Work Phone: [facility] Start: 04-05-2022 End: 04-05-2022 Admission to same day surgery center Dr. Tung Aguilar Work Phone: [facility] Start: 02-27-2022 End: 02-27-[address] Tung Aguilar Work Phone: [facility] G[facility] Start: 01-13-2022 Get Medical Advice Mehran Urrutia APRN.SHINGLE INSPECTOR Work Phone: [facility] [place] Comment on above: lab orders Start: 01-10-2022 ambulatory Mehran agee APRN.SHINGLE INSPECTOR Work Phone: [facility] [place] Start: 01-10-2022 End: 01-10-2022 Patient encounter procedure Mehran Urrutia APRN.SHINGLE INSPECTOR Work Phone: [facility] [place] Comment on above: Kidney replaced by t ransplant (Primary Dx); Sore throat; Aftercare following organ transplant; Thrombocytopenia (HCC); Current use of proton pump inhibitor Start: 12-25-2021 End: 12-25-[address] Tung Aguilar Work Phone: [facility]Rad[facility], [facility] Procedures Date Procedure Procedure Detail Performing Clinician Start: 02-07-2025 Urnls dip stick/tablet rgnt auto w/o microscopy Bulk Order Provider Start: 04-19-2024 Adult depression screening assessment Mehran Urrutia APRN.SHINGLE INSPECTOR Work Phone: Start: 01-29-2024 Urnls dip stick/tablet [...] transplant Kidney replaced by transplant Mehran Urrutia APRN.SHINGLE INSPECTOR Work Phone: History of renal transplant Kidn ey replaced by transplant Mehran Urrutia APRN.SHINGLE INSPECTOR Work Phone: History of renal transplant Kidn ey replaced by transplant Mehran L Lard ALODIZE MACHINE HELPER.SHINGLE INSPECTOR Work Phone: History of renal transplant Sweta l transplant recipient Dr. Tung Aguilar Work Phone: History of renal transplant Kidn ey replaced by transplant Tung Aguilar MD Work Phone: History of renal transplant Kidn ey replaced by transplant Mehran L Lard ALODIZE MACHINE HELPER.SHINGLE INSPECTOR Work Phone: History of renal transplant Kidn ey replaced by transplant Mehran L Lard ALODIZE MACHINE HELPER.SHINGLE INSPECTOR Work Phone: History of renal transplant Kidn ey replaced by transplant Tung Aguilar MD Work Phone: History of renal transplant Kidn ey replaced by transplant Mehran L Lard ALODIZE MACHINE HELPER.SHINGLE INSPECTOR Work Phone: History of renal transplant Kidn ey replaced by transplant Tung Aguilar MD Work Phone: History of renal transplant Kidn ey replaced by transplant [facility] 1 History of renal transplant Kidn ey replaced by transplant Mehran L Lard ALODIZE MACHINE HELPER.SHINGLE INSPECTOR Work Phone: History of renal transplant Kidn ey replaced by transplant Mehran L Lard ALODIZE MACHINE HELPER.SHINGLE INSPECTOR Work Phone: History of renal transplant Kidn ey replaced by transplant Mehran L Lard ALODIZE MACHINE HELPER.SHINGLE INSPECTOR Work Phone: History of renal transplant Kidn ey replaced by transplant Tung Aguilar MD Work Phone: History of renal transplant Kidn ey 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) Mehran L Lard ALODIZE MACHINE HELPER.SHINGLE INSPECTOR Work Phone: History of renal transplant Kidn ey 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) Mehran L Lard ALODIZE MACHINE HELPER.SHINGLE INSPECTOR Work Phone: Plan of Treatment Date Care Activity Detail Author Start: 07-05-2029 Prostate specific antigen measurement Prostate Cancer Screening Discussion [facility] Start: 12-02-2027 PROSTATE CANCER SCREENING DISCUSSION PROSTATE CANCER SCREENING DISCUSSION [facility] Start: 12-02-2027 Prostate specific antigen measurement Prostate Cancer Screening Discussion [facility] Start: 07-26-2027 PROSTATE CANCER SCREENING DISCUSSION PROSTATE CANCER SCREENING DISCUSSION [facility] Start: 02-07-2026 BP Controlled (<130/80) BP Controlled (<130/80) [facility] Start: 10-22-2025 Annual PCP Team Chronic Disease Visit Annual PCP Team Chronic Disease Visit [facility] Start: 10-22-2025 Covid-19 Vaccine (3 - Pfizer risk series) Covid-19 Vaccine (3 - Pfizer risk series) [facility] Comment on above: Postponed from 08/01/2021 (Declined at t his time) Start: 10-22-2025 Hepatitis B Vaccine (1 of 3 - Risk 3-dose series) Hepatitis B Vaccine (1 of 3 - Risk 3-dose series) [facility] Comment on above: Postponed from 2024 (Declined at t his time) Start: 10-22-2025 Pneumococcal Vaccine: 50+ (3 of 3 - PPSV23, PCV20 or PCV21) Pneumococcal Vaccine: 50+ (3 of 3 - PPSV23, PCV20 or PCV21) [facility] Comment on above: Postponed from 06/02/2018 (Declined at t his time) Start: 10-22-2025 RSV Vaccine (1 - Risk 60-74 years 1-dose series) RSV Vaccine (1 - Risk 60-74 years 1-dose series) [facility] Comment on above: Postponed from 2024 (Declined at t his time) Start: 10-12-2025 Diabetic foot examination Diabetic Foot Exam [facility] Start: 08-23-2025 Annual PCP Team Chronic Disease Visit Annual PCP Team Chronic Disease Visit [facility] Start: 08-23-2025 BP Controlled (<130/80) BP Controlled (<130/80) [facility] Start: 08-07-2025 Hemoglobin A1c measurement HbA1C [facility] Start: 06-06-2025 Influenza vaccination Influenza Vaccine (Season Ended) [facility] Start: 05-11-2025 End: 05-11-2025 Patient encounter procedure 05/11/2025 8:00 AM EDT Office Visit [facility] [address] [place] [address] Tung Aguilar MD [address] [place] [address] Medicare Wellness [facility] Comment on above: Medicare Wellness Start: 05-10-2025 End: 08-09-2025 Hemoglobin A1c in Blood HEMOGLOBIN A1C Lab Routine 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) 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) Expected: 05/10/2025 (Approximate), Expires: 08/09/2025 [facility] Comment on above: Expected: 05/10/2025 (Approximate), Expi res: 08/09/2025 Start: 04-19-2025 Annual PCP Team Chronic Disease Visit Annual PCP Team Chronic Disease Visit [facility] Start: 04-19-2025 Anxiety Screening Anxiety Screening [facility] Start: 04-19-2025 Depression Screening Depression Screening [facility] Start: 04-19-2025 Hepatitis A Vaccine (1 of 2 - Risk 2-dose series) Hepatitis A Vaccine (1 of 2 - Risk 2-dose series) [facility] Comment on above: Postponed from 1983 (Declined at t his time) Start: 04-19-2025 Pneumococcal vaccination Pneumococcal Vaccine (3 of 3 - PPSV23 or PCV20) [facility] Comment on above: Postponed from 06/02/2018 (Declined at t his time) Start: 04-19-2025 Shingrix Vaccine (1 of 2) Shingrix Vaccine (1 of 2) [facility] Comment on above: Postponed from 1983 (Declined at t his time) Start: 04-19-2025 Urine microalbumin profile DTaP,Tdap,Td Vaccine (2 - Tdap) [facility] Comment on above: Postponed from 09/03/2015 (Declined at t his time) Start: 04-17-2025 Hemoglobin A1c measurement HbA1C [facility] Start: 04-04-2025 [facility] Comment on above: Postp[facility] from 06/06/2024 (Declined at t his time) Start: 02-07-2025 End: 02-07-2025 Patient encounter procedure 02/07/2025 8:30 AM EDT Office Visit [facility] [address] [address] Mehran Urrutia, ALODIZE MACHINE HELPER.SHINGLE INSPECTOR [address] [place] [address] Annual follow up visit Kidney Medicine [facility] Comment on above: Annual follow up visit Start: 02-03-2025 End: 05-05-2025 Amylase [Enzymatic activity/volume] in Serum or Plasma AMYLASE Lab Routine Kidney 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) Expected: 02/03/2025, Expires: 05/05/2025 [facility] Comment on above: Expected: 02/03/2025, Expires: Start: 02-03-2025 End: 05-05-2025 C peptide [Mass/volume] in Serum or Plasma C-PEPTIDE BLD Lab Routine Kidney 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) Expected: 02/03/2025, Expires: 05/05/2025 [facility] Comment on above: Expected: 02/03/2025, Expires: Start: 02-03-2025 End: 05-05-2025 CBC W Auto Differential panel - Blood COMPLETE BLOOD COUNT AND DIFFERENTIAL Lab Routine Kidney 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) Expected: 02/03/2025, Expires: 05/05/2025 [facility] Comment on above: Expected: 02/03/2025, Expires: Start: 02-03-2025 End: 05-05-2025 Comprehensive metabolic 2000 panel - Serum or Plasma COMPREHENSIVE METABOLIC PANEL Lab Routine Kidney 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) Expected: 02/03/2025, Expires: 05/05/2025 [facility] Comment on above: Expected: 02/03/2025, Expires: Start: 02-03-2025 End: 05-05-2025 Hemoglobin A1c in Blood HEMOGLOBIN A1C Lab Routine Kidney 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) Expected: 02/03/2025, Expires: 05/05/2025 [facility] Work Phone: Comment on above: Expected: 02/03/2025, Expires: Start: 02-03-2025 End: 05-05-2025 Lipase [Enzymatic activity/volume] in Serum or Plasma LIPASE Lab Routine Kidney 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) Expected: 02/03/2025, Expires: 05/05/2025 [facility] Comment on above: Expected: 02/03/2025, Expires: Start: 02-03-2025 End: 05-05-2025 Tacrolimus [Mass/volume] in Blood TACROLIMUS/FK-506 BL Lab Routine Kidney 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) Expected: 02/03/2025, Expires: 05/05/2025 [facility] Comment on above: Expected: 02/03/2025, Expires: Start: 01-28-2025 BP Controlled (<130/80) BP Controlled (<130/80) [facility] Start: 01-20-2025 End: 04-21-2025 Lipid 1996 panel - Serum or Plasma LIPID PANEL BASIC Lab Routine 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) Expected: 01/20/2025, Expires: 04/21/2025 [facility] Work Phone: Comment on above: Expected: 01/20/2025, Expires: Start: 01-02-2025 Hemoglobin A1c measurement HbA1C [facility] Start: 12-18-2024 BP Controlled (<130/80) BP Controlled (<130/80) [facility] Start: 11-05-2024 Hepatitis B screening Urine Albumin:Creatinine Ratio [facility] Start: 11-05-2024 Hepatitis B surface antibody level LDL Cholesterol [facility] Start: 10-22-2024 End: 01-21-2025 Microalbumin/Creatinin e [Mass Ratio] in Urine ALBUMIN/CREATININE RATIO, URINE Lab Routine 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) Expected: 10/22/2024, Expires: 01/21/2025 [facility] Comment on above: Expected: 10/22/2024, Expires: Start: 10-22-2024 End: 10-22-2024 Patient encounter procedure 10/22/2024 9:20 AM EST Office Visit [facility] [place] [address] [place] [address] Tung Aguilar MD [address] [place] [id number] 6 month follow up [facility] [place] Comment on above: 6 month follow up Start: 10-20-2024 Annual PCP Team Chronic Disease Visit Annual PCP Team Chronic Disease Visit [facility] Start: 10-20-2024 BP Controlled (<130/80) BP Controlled (<130/80) [facility] Start: 10-20-2024 Covid-19 Vaccine (3 - Pfizer risk series) Covid-19 Vaccine (3 - Pfizer risk series) [facility] Comment on above: Postponed from 08/01/2021 (Declined at t his time) Start: 10-06-2024 Medicare Advantage Annual Wellness Visit Medicare Advantage Annual Wellness Visit [facility] Start: 09-09-2024 Hemoglobin A1c measurement HbA1C [facility] Start: 2024 Hepatitis B Vaccine (1 of 3 - Risk 3-dose series) Hepatitis B Vaccine (1 of 3 - Risk 3-dose series) [facility] Start: 2024 RSV Vaccine (1 - Risk 60-74 years 1-dose series) RSV Vaccine (1 - Risk 60-74 years 1-dose series) [facility] Start: 08-23-2024 End: 08-23-2024 Patient encounter procedure 08/23/2024 10:40 AM EST Office Visit [facility] [address] [place] [address] Leticia Jasso APRN.SHINGLE INSPECTOR [address] [place] [address] LT ARM RINGWORM [facility] Comment on above: LT ARM RINGWORM Start: 08-06-2024 Diabetic foot examination Diabetic Foot Exam [facility] Start: 06-20-2024 BP Controlled (<130/80) BP Controlled (<130/80) [facility] Start: 06-06-2024 Influenza vaccination [facility] Start: 06-03-2024 BP CONTROLLED (<130/80) BP CONTROLLED (<130/80) [facility] Start: 05-05-2024 Hemoglobin A1c measurement HbA1C [facility] Start: 04-19-2024 End: 04-19-2024 Patient encounter procedure 04/19/2024 10:20 AM EDT Office Visit [facility] [place] [address] [place] [address] Tung Aguilar MD [address] [facility] [place] [address] 6 month follow up [facility] Comment on above: 6 month follow up Start: 04-17-2024 ANNUAL PCP TEAM CHRONIC DISEASE VISIT ANNUAL PCP TEAM CHRONIC DISEASE VISIT [facility] Start: 04-17-2024 BP CONTROLLED (<130/80) BP CONTROLLED (<130/80) [facility] Start: 04-17-2024 HEPATITIS A (1 of 2 - Risk 2-dose series) HEPATITIS A (1 of 2 - Risk 2-dose series) [facility] Comment on above: Postponed from 1983 (Declined at t his time) Start: 04-17-2024 Hepatitis A Vaccine (1 of 2 - Risk 2-dose series) Hepatitis A Vaccine (1 of 2 - Risk 2-dose series) [facility] Comment on above: Postponed from 1983 (Declined at t his time) Start: 04-17-2024 HEPATITIS B (1 of 3 - 3-dose series) HEPATITIS B (1 of 3 - 3-dose series) [facility] Comment on above: Postponed from 1964 (Declined at t his time) Start: 04-17-2024 Hepatitis B Vaccine (1 of 3 - 3-dose series) Hepatitis B Vaccine (1 of 3 - 3-dose series) [facility] Comment on above: Postponed from 1964 (Declined at t his time) Start: 04-17-2024 PNEUMOCOCCAL (3 - PPSV23 or PCV20) PNEUMOCOCCAL (3 - PPSV23 or PCV20) [facility] Comment on above: Postponed from 04/07/2019 (Declined at t his time) Start: 04-17-2024 Pneumococcal vaccination [facility] Comment on above: Postponed from 04/07/2019 (Declined at t his time) Postponed from 06/02 (Declined at this time) Start: 04-17-2024 SHINGRIX VACCINE (1 of 2) SHINGRIX VACCINE (1 of 2) [facility] Comment on above: Postponed from 1983 (Declined at t his time) Start: 04-17-2024 Urine microalbumin profile [facility] Comment on above: Postponed from 09/03/2015 (Declined at t his time) Start: 04-04-2024 Influenza vaccination Influ[facility] Vaccine [facility]) [facility] [facility] Comment on above: Postponed from 06/06/2023 (Declined at t his time) Start: 03-05-2024 Glaucoma screening Dilated Retinal Exam [facility] Start: 03-05-2024 Hepatitis C antibody, confirmatory test DILATED RETINAL EXAM [facility] Start: 02-28-2024 End: 05-29-2024 Amylase [Enzymatic activity/volume] in Serum or Plasma AMYLASE Lab Routine 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) Expected: 02/28/2024 (Approximate), Expires: 05/29/2024 [facility] Comment on above: Expected: 02/28/2024 (Approximate), Expi res: 05/29/2024 Start: 02-28-2024 End: 05-29-2024 CBC panel - Blood by Automated count COMPLETE BLOOD COUNT Lab Routine 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) Kidney replaced by transplant Expected: 02/28/2024 (Approximate), Expires: 05/29/2024 [facility] Comment on above: Expected: 02/28/2024 (Approximate), Expi res: 05/29/2024 Start: 02-28-2024 End: 05-29-2024 Hemoglobin A1c in Blood HEMOGLOBIN A1C Lab Routine 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) Expected: 02/28/2024 (Approximate), Expires: 05/29/2024 [facility] Comment on above: Expected: 02/28/2024 (Approximate), Expi res: 05/29/2024 Start: 02-28-2024 End: 05-29-2024 Lipase [Enzymatic activity/volume] in Serum or Plasma LIPASE Lab Routine 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) Expected: 02/28/2024 (Approximate), Expires: 05/29/2024 [facility] Comment on above: Expected: 02/28/2024 (Approximate), Expi res: 05/29/2024 Start: 02-28-2024 End: 05-29-2024 Renal function 2000 panel - Serum or Plasma RENAL FUNCTION PANEL Lab Routine 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) Kidney replaced by transplant Expected: 02/28/2024 (Approximate), Expires: 05/29/2024 [facility] Work Phone: Comment on above: Expected: 02/28/2024 (Approximate), Expi res: 05/29/2024 Start: 02-28-2024 End: 05-29-2024 Tacrolimus [Mass/volume] in Blood TACROLIMUS/FK-506 BL Lab Routine 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) Kidney replaced by transplant Expected: 02/28/2024 (Approximate), Expires: 05/29/2024 [facility] Comment on above: Expected: 02/28/2024 (Approximate), Expi res: 05/29/2024 Start: 02-05-2024 BP CONTROLLED (<130/80) BP CONTROLLED (<130/80) [facility] Start: 12-19-2023 End: 07-19-2024 Gastric emptying imaging study NM GASTRIC EMPTYING SOLID Radiology Routine Gastroparesis Expected: 12/19/2023, Expires: 07/19/2024 [facility] Work Phone: Comment on above: Expected: 12/19/2023, Expires: Start: 12-09-2023 Hemoglobin A1c/Hemoglobin.total in Blood HbA1C [facility] Start: 12-02-2023 Hepatitis B surface antibody level LDL CHOLESTEROL [facility] Start: 10-18-2023 End: 12-18-2023 Lipid 1996 panel - Serum or Plasma LIPID PANEL BASIC Lab Routine Pure hypercholesterolemia Expected: 10/18/2023, Expires: 12/18/2023 [facility] Work Phone: Comment on above: Expected: 10/18/2023, Expires: Start: 10-17-2023 ANNUAL PCP TEAM CHRONIC DISEASE VISIT ANNUAL PCP TEAM CHRONIC DISEASE VISIT [facility] Start: 10-17-2023 BP CONTROLLED (<130/80) BP CONTROLLED (<130/80) [facility] Start: 10-17-2023 COVID-19 VACCINE (3 - Pfizer risk series) COVID-19 VACCINE (3 - Pfizer risk series) [facility] Comment on above: Postponed from 08/01/2021 (Declined at t his time) Start: 10-10-2023 3 comp foot exam completed DIABETIC FOOT EXAM [facility] Start: 10-06-2023 Behavioral Health Screening Behavioral Health Screening [facility] Start: 10-06-2023 Depression Assessment Depression Assessment [facility] Start: 08-08-2023 ANNUAL PCP TEAM CHRONIC DISEASE VISIT ANNUAL PCP TEAM CHRONIC DISEASE VISIT [facility] Start: 08-08-2023 BP CONTROLLED (<130/80) BP CONTROLLED (<130/80) [facility] Start: 07-26-2023 Hepatitis B screening URINE ALBUMIN:CREATININE RATIO [facility] Start: 06-06-2023 Influenza vaccination [facility] Start: 06-03-2023 End: 08-03-2023 Hemoglobin A1c in Blood [facility] Work Phone: Comment on above: Expected: 06/03/2023, Expires: Start: 06-01-2023 Hemoglobin A1c/Hemoglobin.total in Blood HBA1C [facility] Start: 05-30-2023 End: 05-30-2024 CBC W Auto Differential panel - Blood CBC + DIFF Lab Routine Gastric bezoar, initial encounter Pre-op exam Expected: 05/30/2023, Expires: 05/30/2024 [facility] Work Phone: Comment on above: Expected: 05/30/2023, Expires: 4 Start: 05-30-2023 End: 05-30-2024 Comprehensive metabolic 2000 panel - Serum or Plasma COMP METABOLIC PANEL Lab Routine Gastric bezoar, initial encounter Pre-op exam Expected: 05/30/2023, Expires: 05/30/2024 [facility] Work Phone: Comment on above: Expected: 05/30/2023, Expires: 4 Start: 05-30-2023 End: 05-30-2024 TYPE AND SCREEN,30 DAY TYPE AND SCREEN,30 DAY Blood Bank Routine Gastric bezoar, initial encounter Pre-op exam Expected: 05/30/2023, Expires: 05/30/2024 [facility] Work Phone: Comment on above: Expected: 05/30/2023, Expires: 4 Start: 05-07-2023 Patient discharge [facility] Start: 04-23-2023 Hepatitis B screening URINE ALBUMIN:CREATININE RATIO [facility] Start: 04-16-2023 Adult depression screening assessment DEPRESSION SCREENING [facility] Start: 04-16-2023 ANNUAL PCP TEAM CHRONIC DISEASE VISIT ANNUAL PCP TEAM CHRONIC DISEASE VISIT [facility] Start: 04-16-2023 BP CONTROLLED (<130/80) BP CONTROLLED (<130/80) [facility] Start: 04-10-2023 PROSTATE CANCER SCREENING DISCUSSION PROSTATE CANCER SCREENING DISCUSSION [facility] Start: 04-04-2023 Influenza vaccination INFLUENZA (#1) [facility] Comment on above: Postponed from 06/06/2022 (Declined at t his time) Start: 01-25-2023 Hepatitis C antibody, confirmatory test DILATED RETINAL EXAM [facility] Start: 01-24-2023 Hemoglobin A1c/Hemoglobin.total in Blood HBA1C [facility] Start: 01-10-2023 BP CONTROLLED (<130/80) BP CONTROLLED (<130/80) [facility] Start: 12-08-2022 End: 02-07-2023 Prostate specific Ag [Mass/volume] in Serum or Plasma PSA/PROSTSPECAG DIAG Lab Routine Elevated PSA Expected: 12/08/2022, Expires: 02/07/2023 [facility] Work Phone: Comment on above: Expected: 12/08/2022, Expires: 3 Start: 10-24-2022 Hemoglobin A1c/Hemoglobin.total in Blood HBA1C [facility] Start: 10-17-2022 End: 12-17-2022 Hemoglobin A1c in Blood HGB A1C Lab Routine 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) Expected: 10/17/2022, Expires: 12/17/2022 [facility] Work Phone: Comment on above: Expected: 10/17/2022, Expires: 3 Start: 10-17-2022 End: 12-17-2022 Lipid 1996 panel - Serum or Plasma LIPID PANEL BASIC Lab Routine Pure hypercholesterolemia Expected: 10/17/2022, Expires: 12/17/2022 [facility] Work Phone: Comment on above: Expected: 10/17/2022, Expires: 3 Start: 10-16-2022 3 comp foot exam completed DIABETIC FOOT EXAM [facility] Start: 10-16-2022 ANNUAL PCP TEAM CHRONIC DISEASE VISIT ANNUAL PCP TEAM CHRONIC DISEASE VISIT [facility] Start: 07-26-2022 Hepatitis B surface antibody level LDL CHOLESTEROL [facility] Start: 07-17-2022 Hemoglobin A1c/Hemoglobin.total in Blood HBA1C [facility] Start: 06-06-2022 Influenza vaccination [facility] Start: 04-16-2022 End: 06-16-2022 ALBUMIN/CREAT RATIO RND UR ALBUMIN/CREAT RATIO RND UR Lab Routine 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) Expected: 04/16/2022, Expires: 06/16/2022 [facility] Work Phone: Comment on above: Expected: 04/16/2022, Expires: Start: 04-05-2022 Egd transoral biopsy single/multiple EGD BIOPSY SINGLE/MULTIPLE [facility] Work Phone: Start: 04-05-2022 Patient discharge [facility] Work Phone: Start: 10-06-2021 DEPRESSION ASSESSMENT DEPRESSION ASSESSMENT [facility] Start: 09-20-2021 Hepatitis B screening URINE ALBUMIN:CREATININE RATIO [facility] Start: 08-29-2021 Hemoglobin A1c/Hemoglobin.total in Blood HBA1C [facility] Start: 08-01-2021 COVID-19 VACCINE (3 - Pfizer risk 4-dose series) COVID-19 VACCINE (3 - Pfizer risk 4-dose series) [facility] Start: 08-01-2021 COVID-19 VACCINE (3 - Pfizer risk series) COVID-19 VACCINE (3 - Pfizer risk series) [facility] Start: 04-07-2019 PNEUMOCOCCAL (3 - PPSV23 if available, else PCV20) PNEUMOCOCCAL (3 - PPSV23 if available, else PCV20) [facility] Start: 04-07-2019 PNEUMOCOCCAL (3 - PPSV23 or PCV20) PNEUMOCOCCAL (3 - PPSV23 or PCV20) [facility] Start: 09-03-2015 Urine microalbumin profile DTAP,TDAP,TD (2 - Tdap) [facility] Start: 2014 SHINGRIX VACCINE (1 of 2) SHINGRIX VACCINE (1 of 2) [facility] Start: 08-06-2010 TWO PNEUMOVAX 5 YEARS APART PRIOR TO AGE 65 (#2) TWO PNEUMOVAX 5 YEARS APART PRIOR TO AGE 64 (#2) [facility] Start: 2009 COLOGUARD (FIT-DNA) COLOGUARD (FIT-DNA) [facility] Start: 2009 Colonoscopy COLONOSCOPY [facility] Start: 2009 COLORECTAL CANCER SCREENING COLORECTAL CANCER SCREENING [facility] Start: [address] COLONOGRAPHY [facility] Start: 2009 FECAL OCCULT BLOOD FECAL OCCULT BLOOD [facility] Start: 2009 Screening for malignant neoplasm of colon [facility] Start: 2009 SIGMOIDOSCOPY SIGMOIDOSCOPY [facility] Start: 1983 HEPATITIS B (1 of 3 - Risk 3-dose series) HEPATITIS B (1 of 3 - Risk 3-dose series) [facility] Start: 1983 SHINGRIX VACCINE (1 of 2) SHINGRIX VACCINE (1 of 2) [facility] Start: 1982 BP CONTROLLED (<130/80) BP CONTROLLED (<130/80) [facility] Start: 1976 Adult depression screening assessment DEPRESSION SCREENING [facility] Start: 1974 Hepatitis C antibody, confirmatory test DILATED RETINAL EXAM [facility] Start: 1965 HEPATITIS A (1 of 2 - Risk 2-dose series) HEPATITIS A (1 of 2 - Risk 2-dose series) [facility] Start: 1964 HEPATITIS B (1 of 3 - 3-dose series) HEPATITIS B (1 of 3 - 3-dose series) [facility] End: 01-14-2023 Amylase [Enzymatic activity/volume] in Serum or Plasma AMYLASE BLD Lab Routine 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) Every 3 months for 4 Occurrences starting 01/14/2022 until 01/14/2023 [facility] Work Phone: Comment on above: Every 3 months for 4 Occurrences startin g 01/14/2022 until 01/14/2023 End: 02-05-2024 Amylase [Enzymatic activity/volume] in Serum or Plasma AMYLASE BLD Lab Routine Kidney replaced by transplant Every 3 months for 4 Occurrences starting 02/04/2023 until 02/05/2024 [facility] Work Phone: Comment on above: Every 3 months for 4 Occurrences startin g 02/04/2023 until 02/05/2024 End: 01-28-2025 Amylase [Enzymatic activity/volume] in Serum or Plasma AMYLASE Lab Routine 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) Every 3 months for 4 Occurrences starting 01/29/2024 until 01/28/2025 [facility] Comment on above: Every 3 months for 4 Occurrences startin g 01/29/2024 until 01/28/2025 End: 01-14-2023 BK VIRUS PCR,QUANT,P BK VIRUS PCR,QUANT,P Lab Routine Kidney replaced by transplant Every 3 months for 4 Occurrences starting 01/14/2022 until 01/14/2023 [facility] Work Phone: Comment on above: Every 3 months for 4 Occurrences startin g 01/14/2022 until 01/14/2023 End: 02-05-2024 BK VIRUS PCR,QUANT,P BK VIRUS PCR,QUANT,P Lab Routine Kidney replaced by transplant Every 6 months for 2 Occurrences starting 02/04/2023 until 02/05/2024 [facility] Work Phone: Comment on above: Every 6 months for 2 Occurrences startin g 02/04/2023 until 02/05/2024 End: 02-05-2024 C peptide [Mass/volume] in Serum or Plasma C-PEPTIDE BLD Lab Routine 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) 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) Every 6 months for 2 Occurrences starting 02/04/2023 until 02/05/2024 [facility] Work Phone: Comment on above: Every 6 months for 2 Occurrences startin g 02/04/2023 until 02/05/2024 End: 01-28-2025 C peptide [Mass/volume] in Serum or Plasma C-PEPTIDE BLD Lab Routine 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) Every 6 months for 2 Occurrences starting 01/29/2024 until 01/28/2025 [facility] Comment on above: Every 6 months for 2 Occurrences startin g 01/29/2024 until 01/28/2025 End: 01-14-2023 C-PEPTIDE BLD C-PEPTIDE BLD Lab Routine 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) Every 3 months for 4 Occurrences starting 01/14/2022 until 01/14/2023 [facility] Work Phone: Comment on above: Every 3 months for 4 Occurrences startin g 01/14/2022 until 01/14/2023 End: 01-14-2023 CBC panel - Blood by Automated count CBC Lab Routine Kidney replaced by transplant 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) Every 3 months for 4 Occurrences starting 01/14/2022 until 01/14/2023 [facility] Work Phone: Comment on above: Every 3 months for 4 Occurrences startin g 01/14/2022 until 01/14/2023 End: 02-05-2024 CBC panel - Blood by Automated count CBC Lab Routine 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) Kidney replaced by transplant Every 3 months for 4 Occurrences starting 02/04/2023 until 02/05/2024 [facility] Work Phone: Comment on above: Every 3 months for 4 Occurrences startin g 02/04/2023 until 02/05/2024 End: 02-07-2026 CBC panel - Blood by Automated count COMPLETE BLOOD COUNT Lab Routine Kidney 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) 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) Every 3 months for 4 Occurrences starting 02/07/2025 until 02/07/2026 [facility] Comment on above: Every 3 months for 4 Occurrences startin g 02/07/2025 until 02/07/2026 End: 01-28-2025 CBC W Auto Differential panel - Blood COMPLETE BLOOD COUNT AND DIFFERENTIAL Lab Routine 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) Kidney replaced by transplant Every 3 months for 4 Occurrences starting 01/29/2024 until 01/28/2025 [facility] Comment on above: Every 3 months for 4 Occurrences startin g 01/29/2024 until 01/28/2025 End: 01-14-2023 Comprehensive metabolic 2000 panel - Serum or Plasma COMP METABOLIC PANEL Lab Routine Kidney replaced by transplant 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) Every 3 months for 4 Occurrences starting 01/14/2022 until 01/14/2023 [facility] Work Phone: Comment on above: Every 3 months for 4 Occurrences startin g 01/14/2022 until 01/14/2023 End: 02-05-2024 Comprehensive metabolic 2000 panel - Serum or Plasma COMP METABOLIC PANEL Lab Routine 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) Kidney replaced by transplant Every 3 months for 4 Occurrences starting 02/04/2023 until 02/05/2024 [facility] Work Phone: Comment on above: Every 3 months for 4 Occurrences startin g 02/04/2023 until 02/05/2024 End: 01-28-2025 Comprehensive metabolic 2000 panel - Serum or Plasma COMPREHENSIVE METABOLIC PANEL Lab Routine 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) Kidney replaced by transplant Every 3 months for 4 Occurrences starting 01/29/2024 until 01/28/2025 [facility] Comment on above: Every 3 months for 4 Occurrences startin g 01/29/2024 until 01/28/2025 End: 02-07-2026 Comprehensive metabolic 2000 panel - Serum or Plasma COMPREHENSIVE METABOLIC PANEL Lab Routine Kidney 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) Every 6 months for 2 Occurrences starting 02/07/2025 until 02/07/2026 [facility] Comment on above: Every 6 months for 2 Occurrences startin g 02/07/2025 until 02/07/2026 End: 05-30-2024 ECG COMPLETE ECG COMPLETE ECG Routine Gastric bezoar, initial encounter Pre-op exam 1 Occurrences starting 05/30/2023 until 05/30/2024 [facility] Work Phone: Comment on above: 1 Occurrences starting 05/30/2023 until 05/30/2024 ECG COMPLETE ECG COMPLETE ECG Routine 06/03/2023 9:49 AM EDT [facility] Work Phone: End: 02-05-2024 Hemoglobin A1c in Blood HGB A1C Lab Routine 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) 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) Every 6 months for 2 Occurrences starting 02/04/2023 until 02/05/2024 [facility] Work Phone: Comment on above: Every 6 months for 2 Occurrences startin g 02/04/2023 until 02/05/2024 End: 01-28-2025 Hemoglobin A1c in Blood HEMOGLOBIN A1C Lab Routine 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) Every 6 months for 2 Occurrences starting 01/29/2024 until 01/28/2025 [facility] Comment on above: Every 6 months for 2 Occurrences startin g 01/29/2024 until 01/28/2025 End: 01-14-2023 Hemoglobin A1c/Hemoglobin.total in Blood HGB A1C Lab Routine Type I diabetes mellitus with manifestations ([facility]) Every 3 months for 4 Occurrences starting 01/14/2022 until 01/14/2023 [facility] Work Phone: Comment on above: Every 3 months for 4 Occurrences startin g 01/14/2022 until 01/14/2023 End: 01-14-2023 Lipase [Enzymatic activity/volume] in Serum or Plasma LIPASE BLD Lab Routine 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 ([facility]) Every 3 months for 4 Occurrences starting 01/14/2022 until 01/14/2023 [facility] Work Phone: Comment on above: Every 3 months for 4 Occurrences startin g 01/14/2022 until 01/14/2023 End: 02-05-2024 Lipase [Enzymatic activity/volume] in Serum or Plasma LIPASE BLD Lab Routine Kidney replaced by transplant Every 3 months for 4 Occurrences starting 02/04/2023 until 02/05/2024 [facility] Work Phone: Comment on above: Every 3 months for 4 Occurrences startin g 02/04/2023 until 02/05/2024 End: 01-28-2025 Lipase [Enzymatic activity/volume] in Serum or Plasma LIPASE Lab Routine 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 ([facility]) Every 3 months for 4 Occurrences starting 01/29/2024 until 01/28/2025 [facility] Comment on above: Every 3 months for 4 Occurrences startin g 01/29/2024 until 01/28/2025 End: 02-07-2026 Lipid 1996 panel - Serum or Plasma LIPID PANEL, FASTING Lab Routine Pure hypercholesterolemia Every 6 months for 2 Occurrences starting 02/07/2025 until 02/07/2026 [facility] Comment on above: Every 6 months for 2 Occurrences startin g 02/07/2025 until 02/07/2026 Patient referral [facility] Work Phone: End: 06-28-2024 Radiologic exam chest 2 views XR CHEST 2V FRONTAL/LAT Radiology Routine Gastric bezoar, initial encounter Pre-op exam 1 Occurrences starting 05/30/2023 until 06/28/2024 [facility] Work Phone: Comment on above: 1 Occurrences starting 05/30/2023 until 06/28/2024 REFER FOR ADMIT INTERVIEW REFER FOR ADMIT INTERVIEW Procedures Routine Gastric bezoar, initial encounter Pre-op exam Ordered: 05/30/2023 [facility] Work Phone: Comment on above: Ordered: 05/30/2023 End: 02-07-2026 Renal function 2000 panel - Serum or Plasma RENAL FUNCTION PANEL Lab Routine Kidney 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) 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 ([facility]) Every 3 months for 4 Occurrences starting 02/07/2025 until 02/07/2026 [facility] Work Phone: Comment on above: Every 3 months for 4 Occurrences startin g 02/07/2025 until 02/07/2026 End: 02-05-2024 Tacrolimus [Mass/volume] in Blood TACROLIMUS/FK-506 BL Lab Routine 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) Kidney replaced by transplant Every 3 months for 4 Occurrences starting 02/04/2023 until 02/05/2024 [facility] Work Phone: Comment on above: Every 3 months for 4 Occurrences startin g 02/04/2023 until 02/05/2024 End: 01-28-2025 Tacrolimus [Mass/volume] in Blood TACROLIMUS/FK-506 BL Lab Routine 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 ([facility]) Kidney replaced by transplant Every 3 months for 4 Occurrences starting 01/29/2024 until 01/28/2025 [facility] Comment on above: Every 3 months for 4 Occurrences startin g 01/29/2024 until 01/28/2025 End: 02-07-2026 Tacrolimus [Mass/volume] in Blood TACROLIMUS/FK-506 BL Lab Routine Kidney replaced by transplant ([facility]) 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 ([facility]) Every 3 months for 4 Occurrences starting 02/07/2025 until 02/07/2026 [facility] Comment on above: Every 3 months for 4 Occurrences startin g 02/07/2025 until 02/07/2026 End: 01-14-2023 TACROLIMUS/FK-506 BL TACROLIMUS/FK-506 BL Lab Routine Kidney replaced by transplant 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 ([facility]) Every 3 months for 4 Occurrences starting 01/14/2022 until 01/14/2023 [facility] Work Phone: Comment on above: Every 3 months for 4 Occurrences startin g 01/14/2022 until 01/14/2023 End: 09-07-2023 Us pelvic nonobstetric image dcmtn limited/f/u US PROSTATE Radiology Routine Elevated PSA 1 Occurrences starting 08/08/2022 until 09/07/2023 [facility] Work Phone: Comment on above: 1 Occurrences starting 08/08/2022 until 09/07/2023 End: 06-28-2024 XR UPPER GI SINGLE CONTRAST XR UPPER GI SINGLE CONTRAST Radiology Routine Bezoar, initial encounter 1 Occurrences starting 05/30/2023 until 06/28/2024 [facility] Work Phone: Comment on above: 1 Occurrences starting 05/30/2023 until 06/28/2024 [facility] Immunizations Immunization Date Immunization Notes Care Provider Jane ohara 07-04-2021 COVID-19 vaccine, ag e 12+ yr (PFIZER-BIONTECH - PURPLE TOP) Mehran Urrutia ALODIZE 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 HELPER.SHINGLE INSPECTOR Work Phone: [facility] 06-13-2021 COVID-19 vaccine, ag e 12+ yr (PFIZER-BIONTECH - PURPLE TOP) Mehran Urrutia APRN.SHINGLE INSPECTOR Work Phone: [facility] 04-07-2018 pneumococcal conjuga te vaccine, 13 valent Mehran Urrutia APRN.SHINGLE INSPECTOR Work Phone: [facility] 07-13-2015 influenza, injectabl e, quadrivalent, contains preservative Mehran Urrutia APRN.SHINGLE INSPECTOR Work Phone: [facility] Work Phone: 07-13-2015 influenza, seasonal, injectable Mehran Urrutia APRN.SHINGLE INSPECTOR Work Phone: [facility] 07-13-2015 influenza virus vacc ine, unspecified formulation Sandrine Julien MD Work Phone: [facility] 07-13-2012 influenza virus vacc ine, unspecified formulation Mehran Urrutia APRN.SHINGLE INSPECTOR Work Phone: [facility] 07-14-2009 influenza virus vacc ine, unspecified formulation Mehran Urrutia APRN.SHINGLE INSPECTOR Work Phone: [facility] 09-03-2005 diphtheria and tetan us toxoids, adsorbed for pediatric use Mehran Urrutia APRN.SHINGLE INSPECTOR Work Phone: [facility] Work Phone: 08-06-2005 pneumococcal polysaccharide vaccine, 23 valent Mehran Urrutia APRN.SHINGLE INSPECTOR Work Phone: [facility] Work Phone: Payers Date Payer Category Payer Self-pay [id number] 2022 Medicare [employer]NA MEDICARE [employer] GOLD PLUS [id number] 2022-Present [phone] [id number] [facility] [id number] 2022 Medicare (Managed Care) [employer]NA G OLD PLUS Member Subscriber Plan / Payer (Effective 2022-Present) Name: Homar Fallon Relation to Subscriber: Self Name: Homar Fallon Payer ID: [id number] (NAIC) Type: HMO Address[address] [address] [id number] 2022 Private Health Insurance [id number] 2020 Medicaid MEDICAID [facility] MEDICAID [id number] 2020-Present [phone] [address] [place] [address] Medicaid [id number] 2018 Medicaid [id number] 2018 Medicaid [id number] 2006 Medicare MEDICARE MEDICAR E A AND B [id number] 2006-Present [phone] [address] [address] [place] [address] Medicare [id number] 2006 Medicare [id number] Unknown [id number] Unknown [id number] Unknown [id number] Unknown [id number] Unknown [id number] Unknown [id number] Unknown [id number] Unknown [id number] Unknown [id number] Social History Date Type Detail Facility Start: 08-19-2011 End: 01-29-2024 Tobacco smoking status NHIS Never smoked tobacco [facility] Start: 01-10-2022 End: 02-07-2025 Alcohol intake Current non-drinker of alcohol (finding) [facility] Start: 1965 Sex Assigned At Not on file [facility] Start: 12-31-2021 End: 09-09-2022 Exposure to SARS-CoV-2 (event) Not sure [facility] Start: 04-02-2022 End: 05-01-2023 Tobacco smoking status NHIS Unknown if ever smoked [facility] Start: 07-24-2020 None [facility] Start: 07-24-2020 Alone [facility] Start: 07-20-2020 Non-smoker [facility] Start: 1965 Sex Assigned At Male [facility] Start: 08-19-2011 End: 01-29-2024 Tobacco use and exposure Smokeless tobacco non-user [facility] Start: 04-17-2023 End: 08-23-2024 History of Social function [facility] Work Phone: Start: 04-17-2023 End: 08-23-2024 Tobacco use panel [facility] Work Phone: Adult Depression Screening Assessment 0 [facility] Work Phone: How hard is it for y ou to pay for the very basics like food, housing, medical care, and heating Somewhat hard [facility] Work Phone: (I/We) worried reji er (my/our) food would run out before (I/we) got money to buy more. Never true [facility] Work Phone: In the past 12 month s, was there a time when you were not able to pay the mortgage or rent on time? No [facility] Work Phone: NEGATED: Highlighted rowStart: NINF History of tobacco use Passive smoker [facility] Goals Date Patient Goal Desired Activity /State Functional Status Date Assessment Result Facility 06-06-2023 Are you deaf, or do you have serious difficulty hearing No 06/06/2023 11:46 AM Tung Cedillo RN No [facility] 06-06-2023 Are you blind, or do you have serious difficulty seeing, even when wearing glasses No 06/06/2023 11:46 AM Tung Cedillo RN No [facility] 06-06-2023 Do you have serious difficulty walking or climbing stairs No 06/06/2023 11:46 AM Tung Cedillo RN No [facility] 06-06-2023 Do you have difficul ty dressing or bathing No 06/06/2023 11:46 AM Tung Cedillo RN No [facility] 06-06-2023 Because of a physica l, mental, or emotional condition, do you have difficulty doing errands alone such as visiting a physician's office or shopping No 06/06/2023 11:46 AM Tung Cedillo RN No [facility] Mental Status Date Assessment Result Facility 06-06-2023 Because of a physica l, mental, or emotional condition, do you have serious difficulty concentrating, remembering, or making decisions No 06/06/2023 11:46 AM Tung Cedillo RN No [facility] 05-07-2023 Cognitive function Voice/Name [facility] Work Phone: 04-05-2022 Cognitive function Voice/Name;To [facility] Work Phone: Clinical Notes 08-16-2012 to 08-02-2025 Telephone Encounter - Mehran Urrutia APRN.[facility] - 03/18/2025 10:50 AM EDTTelephone Encounter - Meharn Urrutia APRN.[facility] - 03/18/2025 10:[address] [facility] - 03/10/2025 12:34 PM EDT Note Date & Type Note Facility 08-02-2025 Note HNO ID: [id number] Author: LIBERTY DUNBAR RT(R) Service: ? Author [...] PATIENT PRESENTS WITH AN IMPLANTABLE OR ATTACHED TALENT MANAGEMENT SPECIALIST: No RADIOLOGY DEPARTMENT: General X-ray: Exam(s) Completed: Chest X-Ray PERIPHERAL IV DATA: Not applicable SIGNED BY: RT Cici(R) August 02, 2025 9:44 AM [facility] 08-02-2025 Note HNO ID: [id number] Author: ALICIA CHEN APRN.SHINGLE INSPECTOR Service: ? 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 [facility] 05-11-2025 Note HNO ID: [id number] Author: TUNG AGUILAR MD Service: ? Author [...] PCP - General (Family Medicine) Leticia Jasso APRN.SHINGLE INSPECTOR as Carding Machine Operator (Family Medicine) Alicia Chen APRN.KALIA as Carding Machine Operator (Family Medicine) Mehran Urrutia, WILLIAM-nephrology/transplant. No Dr Valdez, rehab therapist. Dr Fink, surgery Dr Barraza, GASTROENTEROLOGY Dr [...] if needed. - Sees Dr. Lopez at [facility] for ophthalmology. - Sees Dr. [...] since his transplant. Discussed recently with his physical therapy aide. Denies syncope. Dupuytren's Contracture: - Contractures in [...] PAST MEDICAL HISTORY Diagnosis Date Acute pancreatitis ([facility]) Amputee ([facility]) 1991 LEFT HAND Disturbance of skin sensation Dupuytren's contracture of foot Kidney replaced by transplant ([facility]) 04/2008 Pancreas transplant 04/2008 Type II or unspecified type diabetes mellitus without mention of complicati (more content not included)... [facility] 03-18-2025 Telephone encounter Note The following approved medication requests have been transmitted electronically. Requested Prescriptions Signed Prescriptions Disp Refills tacrolimus IR (PROGRAF) 1 mg capsule 450 capsule 4 Sig: TAKE 3 CAPSULES BY MOUTH EVERY DAY IN THE MORNING AND TAKE 2 CAPSULES IN THE EVENING Authorizing Provider: MEHRAN URRUTIA APRN.SHINGLE INSPECTOR [facility] 03-18-2025 Miscellaneous Notes The following approved medication requests have been transmitted electronically. Requested Prescriptions Signed Prescriptions Disp Refills tacrolimus IR (PROGRAF) 1 mg capsule 450 capsule 4 Sig: TAKE 3 CAPSULES BY MOUTH EVERY DAY IN THE MORNING AND TAKE 2 CAPSULES IN THE EVENING Authorizing Provider: MEHRAN URRUTIA APRN.CNP [facility] 02/07/2025 Patient phones requesting refills as follows: Requested Prescriptions Pending Prescriptions Disp Refills tacrolimus IR (PROGRAF) 1 mg capsule [Pharmacy Med Name: TACROLIMUS 1 MG CAPSULE (IR)] 450 capsule 4 Sig: TAKE 3 CAPSULES BY MOUTH EVERY DAY IN THE MORNING AND TAKE 2 CAPSULES IN THE EVENING Please review and advise. Madelin Padgett documented in this encounter [facility] 03-16-2025 Telephone encounter Note [facility] 02/07/2025 Patient phones requesting refills as follows: Requested Prescriptions Pending Prescriptions Disp Refills tacrolimus IR (PROGRAF) 1 mg capsule [Pharmacy Med Name: TACROLIMUS 1 MG CAPSULE (IR)] 450 capsule 4 Sig: TAKE 3 CAPSULES BY MOUTH EVERY DAY IN THE MORNING AND TAKE 2 CAPSULES IN THE EVENING Please review and advise. Madelin Padgett [facility] 03-10-2025 Note HNO ID: [id number] Author: ?, ?, ? Service: ? Author Type: ? Type: Progress Notes Filed: 03/10/2025 12:43 Note Text: POPULATION HEALTH NAVIGATION OUTREACH Action/FYI Patient outreach for Hcc gaps; [place], EMERALD, KED. Spoke with patient, would not give , upset for reach out. Understands what he is due for. Reason for Outreach Care Gap/HCC or Scheduling Wellness Visits Care Gaps due: Colorectal Cancer Screening Diabetic Eye Exam KED Patient Contacted: Spoke to patient/parent/or legal guardian Patient identified by name and : No Navigation Signature: Court Rhodes March 10, 2025 12:34 PM [facility] 03-10-2025 History of Present illness Narrative POPULATION HEALTH NAVIGATION OUTREACH Action/FYI Patient outreach for Hcc gaps; [place], EMERALD, KED. Spoke with patient, would not [...] 2025 12:34 PM documented in this encounter [facility] 03-10-2025 Note Patient Outreach (NE TNAV) HOMAR FALLON ([id number]) 1965 M Date Time Provider Department 03/10/25 TUNG AGUILAR During your visit today, we recorded the following information about you: Court Nayak 03/10/2025 12:43 PM Signed POPULATION HEALTH NAVIGATION OUTREACH Action/FYI Patient outreach for Hcc gaps; [place], EMERALD, KED. Spoke with patient, would not [...] Encounter Status:Closed by COURT NAYAK on 03/10/25 [facility] 02-07-2025 Instructions Mehran Urrutia APRN.SHINGLE INSPECTOR - 02/07/2025 9:02 AM EDT We discussed [...] pressure. These can be purchased at a [email or web address]. Do not wear them at night or [...] in your health. documented in this encounter [facility] 02-07-2025 Note HNO ID: [id number] Author: MEHRAN URRUTIA APRN.KALIA Service: ? Author Type: Nurse Practitioner Type: Progress Notes Filed: 02/10/2025 23:37 Note Text: Recording using DineGasm software for draft documentation of the visit was discussed with the patient/authorized customer contact representative; all questions welcomed and answered. Patient/authorized customer contact representative agreed to proceed Department of Kidney Medicine Medical Specialties [facility] CHIEF COMPLAINT: post tx follow up care [...] studies, and office notes were reviewed in [facility] ASSESSMENT/PLAN: 59 year old male who presents with 1. Kidney 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) (Z94.0) Excellent kidney function. No urinary issues reported. Urinalysis shows no proteinuria, but trace microscopic hematuria noted. - Monitor hematuria periodically. 2. Pancrea (more content not included)... [facility] 02-07-2025 History of Present illness Narrative Images from the original note were not included. Recording using DineGasm software for draft documentation of the visit was discussed with the patient/authorized customer contact representative; all questions welcomed and answered. Patient/authorized customer contact representative agreed to proceed Department of Kidney Medicine Medical Specialties [facility] CHIEF COMPLAINT: post tx follow up care [...] studies, and office notes were reviewed in [facility] ASSESSMENT/PLAN: 59 year old male who presents with 1. Kidney 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) (Z94.0) Excellent kidney function. No urinary issues reported. Urinalysis shows no proteinuria, but trace microscopic hematuria noted. - Monitor hematuria periodically. 2. 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 ([facility]) (Z94.83) Pancreatic enzymes are normal. A1c increased [...] of Type I diabetes mellitus with manifestations ([facility]) (E10.8) s/p Pancreas Transplant Patient exhibits signs [...] been made as clinically relevant. Mehran Urrutia APRN.[facility] Staff, Department of Kidney Medicine 02/07/2025 8:38 AM CC: PRIMARY CARE PHYSICIAN: Tung Aguilar MD documented in this encounter [facility] 02-07-2025 Note Patient Outreach (KI DMMN) HOMAR FALLON ([id number]) 1965 M Date Time Provider Department 02/07/25 [...] genitourinary condition [Z13.89] Order(s):UA DIP, URINE (POC) [5033285] Order #: [id number] FUTURE Prescriptions as of 02/10/2025 - ammonium [...] Thrombocytopenia (HCC) [D69.6] 10/22/2024 Encounter Status:Closed by ViveveKEITHUSER on 02/10/25 [facility] 10-25-2024 Telephone encounter Note Detailed message left for patient to contact Dr. Barraza's office. Referral faxed to Dr. Barraza. [facility] 10-25-2024 Miscellaneous Notes Detailed message left for [...] finding records of upper scopes performed at [facility] by Dr. Barraza Is he sure his last colonoscopy was done therE? Double check where and when he thought he had it done and see if we can get the records. documented in this encounter [facility] 10-23-2024 Telephone encounter Note Would recommend he follow with Dr Barraza for colonoscopy [facility] 10-23-2024 Telephone encounter Note Spoke with patient. He states he thought Dr. Barraza did a colonoscopy at the time of the upper GI. I explained to him we don't show record of that. He said he could have been mistaken then thinking the upper GI was the same thing. Niki Simpson MA [facility] 10-23-2024 Telephone encounter Note Let him know we are finding records of upper scopes performed at [facility] by Dr. Barraza Is he sure his last colonoscopy was done therE? Double check where and when he thought he had it done and see if we can get the records. [facility] 10-22-2024 History of Present illness Narrative Patient [...] Abs Lymph 1.00 - 4.00 k/uL 2.15 Bannock% % 8.6 Abs Bannock <0.87 k/uL 0.49 Eosin% % 2.4 Abs [...] REQ 2 CATH 2 SITS W/O SUBQ PORT/CLIENT RELATIONS SPECIALIST 09/18/06 LEFT INTERNAL JUGULAR PAST SURGICAL HISTORY [...] SHUNT 10/14/07 RMVL FRANK CVC W/O SUBQ PORT/CLIENT RELATIONS SPECIALIST 02/06/07 Removal of left IJ tessio catheters [...] Tung Aguilar MD documented in this encounter [facility] 10-22-2024 Note HNO ID: [id number] Author: TUNG AGUILAR MD Service: ? Author [...] Abs Lymph 1.00 - 4.00 k/uL 2.15 Bannock% % 8.6 Abs [place]annock <0.87 k/uL 0.49 Eosin% % 2.4 Abs [...] REQ 2 CATH 2 SITS W/O SUBQ PORT/CLIENT RELATIONS SPECIALIST 09/18/06 LEFT INTERNAL JUGULAR PAST SURGICAL HISTORY [...] SHUNT 10/14/07 RMVL FRANK CVC W/O SUBQ PORT/CLIENT RELATIONS SPECIALIST 02/06/07 Removal of left IJ tessio catheters [...] surgical history, fam (more content not included)... [facility] 09-08-2024 Telephone encounter Note Prescription Refill [...] 1 % cream Class: [facility] [place] September 08, 2024 11:22 AM [facility] Work Phone: 09-08-2024 Miscellaneous Notes Prescription Refill [...] 1 % cream Class: Normal [facility] [place] [address] [place] September 08, 2024 11:22 AM documented in this encounter [facility] 08-23-2024 Instructions Leticia Jasso APRN.KALIA - 08/23/2024 11:11 AM EST Start the antibiotic. If you develop a rash, let us know. documented in this encounter [facility] 08-23-2024 Note HNO ID: [id number] Author: LETICIA JASSO APRN.KALIA Service: ? Author [...] REQ 2 CATH 2 SITS W/O SUBQ PORT/CLIENT RELATIONS SPECIALIST 09/18/06 LEFT INTERNAL JUGULAR PAST SURGICAL HISTORY [...] SHUNT 10/14/07 RMVL FRANK CVC W/O SUBQ PORT/CLIENT RELATIONS SPECIALIST 02/06/07 Removal of left IJ tessio catheters [...] can add cephalo (more content not included)... [facility] 08-23-2024 History of Present illness Narrative [...] REQ 2 CATH 2 SITS W/O SUBQ PORT/CLIENT RELATIONS SPECIALIST 09/18/06 LEFT INTERNAL JUGULAR PAST SURGICAL HISTORY [...] SHUNT 10/14/07 RMVL FRANK CVC W/O SUBQ PORT/CLIENT RELATIONS SPECIALIST 02/06/07 Removal of left IJ tessio catheters [...] as needed for worsening/no improvement. Leticia Jasso APRN.SHINGLE INSPECTOR documented in this encounter [facility] 08-22-2024 Note HNO ID: [id number] Author: YOLY ZUNIGA PA Service: ? Author Type: Physician Refinery Operator Helper Cracking Unit Type: Progress Notes Filed: 08/22/2024 09:49 Note Text: This note was created using Dubbriter. Subjective Homar Fallon is a 58 year [...] REQ 2 CATH 2 SITS W/O SUBQ PORT/CLIENT RELATIONS SPECIALIST 09/18/06 LEFT INTERNAL JUGULAR PAST SURGICAL HISTORY [...] SHUNT 10/14/07 RMVL FRANK CVC W/O SUBQ PORT/CLIENT RELATIONS SPECIALIST 02/06/07 Removal of left IJ tessio catheters [...] to the pa (more content not included)... [facility] 08-22-2024 History of Present illness Narrative Images from the original note were not included. This note was created using Faveeoter. Subjective Homar Fallon is a 58 year [...] REQ 2 CATH 2 SITS W/O SUBQ PORT/CLIENT RELATIONS SPECIALIST 09/18/06 LEFT INTERNAL JUGULAR PAST SURGICAL HISTORY [...] SHUNT 10/14/07 RMVL FRANK CVC W/O SUBQ PORT/CLIENT RELATIONS SPECIALIST 02/06/07 Removal of left IJ tessio catheters [...] evaluation. EMERALD Couch documented in this encounter [facility] 06-18-2024 Telephone encounter Note The following approved medication requests have been transmitted electronically. Requested Prescriptions Signed Prescriptions Disp Refills mycophenolate Mofetil (CELLCEPT) 500 mg tablet 180 tablet 3 Sig: take 1 tablet by mouth twice a day Authorizing Provider: MEHRAN URRUTIA APRN.CNP [facility] 06-18-2024 Miscellaneous Notes The following approved medication requests have been transmitted electronically. Requested Prescriptions Signed Prescriptions Disp Refills mycophenolate Mofetil (CELLCEPT) 500 mg tablet 180 tablet 3 Sig: take 1 tablet by mouth twice a day Authorizing Provider: MEHRAN URRUTIA APRN.CNP [facility] 01/28/2025 Patient's request for medication is as follows: Requested Prescriptions Pending Prescriptions Disp Refills mycophenolate Mofetil (CELLCEPT) 500 mg tablet [Pharmacy Med Name: MYCOPHENOLATE 500 MG TABLET] 180 tablet 3 Sig: take 1 tablet by mouth twice a day Please approve the above prescription(s) to electronically send to pharmacy. FLAVIO Bolivar documented in this encounter [facility] 06-15-2024 Telephone encounter Note [facility] 01/28/2025 Patient's request for medication is as follows: Requested Prescriptions Pending Prescriptions Disp Refills mycophenolate Mofetil (CELLCEPT) 500 mg tablet [Pharmacy Med Name: MYCOPHENOLATE 500 MG TABLET] 180 tablet 3 Sig: take 1 tablet by mouth twice a day Please approve the above prescription(s) to electronically send to pharmacy. FLAVIO Bolivar [facility] 01-29-2024 Instructions Mehran Urrutia APRN.CNP - 01/29/2024 9:09 AM EDT Decrease morning dose of Prograf (Tacrolimus) to 2mg, continue 2mg in the evening Continue 8a and 8pm schedule for meds Repeat labs in one month, ok to drink water before the bloodwork documented in this encounter [facility] 01-29-2024 History of Present illness Narrative Patient [...] REQ 2 CATH 2 SITS W/O SUBQ PORT/CLIENT RELATIONS SPECIALIST 09/18/06 LEFT INTERNAL JUGULAR PAST SURGICAL HISTORY [...] SHUNT 10/14/07 RMVL FRANK CVC W/O SUBQ PORT/CLIENT RELATIONS SPECIALIST 02/06/07 Removal of left IJ tessio catheters [...] which included preparing to see the patient, [id number] patient care, completing clinical documentation, obtaining and/or reviewing separately obtained history, performing a medically appropriate examination, counseling and educating the patient/family/caregiver, and ordering medications, tests, or procedures. documented in this encounter [facility] 12-29-2023 Miscellaneous Notes The following approved medication [...] IN THE EVENING documented in this encounter [facility] 12-19-2023 History of Present illness Narrative Name: [...] 2023 1:02 PM documented in this encounter [facility] 12-10-2023 History of Present illness Narrative RADIOLOGY [...] PATIENT PRESENTS WITH AN IMPLANTABLE OR ATTACHED TALENT MANAGEMENT SPECIALIST: No CREATININE: Creatinine Date Value Ref Range [...] 840 PATIENT DISCHARGED TO: Ambulatory patient, left [place] department area. A Diagnostic radioactive procedure has taken place, with no further precautions necessary other than routine body substance precautions. More information regarding radiation safety can be found using this link: [email or web address] SIGNATURE: RT Justyna(R) PATIENT NAME: Homar Fallon DATE: December 10, 2023 TIME: 8:45 AM PAGER/CONTACT #: documented in this encounter [facility] 08-14-2023 History of Present illness Narrative POPULATION HEALTH NAVIGATION OUTREACH Action/FYI Missing invalid QRGLt message sent Colorectal Cancer Screening Never done Influenza Vaccine(1) due on 06/06/2023 Patient Identified by Name and : NO Outreach Outcome/Action Unable to reach patient: Phone number not valid / voicemail full Aerobhart message sent Did you use a PCP flex slot to schedule this appointment? N/A Reason for Outreach Care Gap or Scheduling/Wellness visits Payer: Payor: m[employer]icoA MEDICARE / Plan: Authenticlick / Product Type: HMO / Care Gap Reviewed:: Controlling Blood Pressure Flu Vaccine Reminder: Reminder note to check Health Maintenance for items below Health Maintenance items due: Colorectal Cancer Screening Never done Influenza Vaccine(1) due on 06/06/2023 Urine Albumin:Creatinine Ratio due on 07/26/2023 Navigation Signature: Rosa Medina MA August 14, 2023 10:19 AM documented in this encounter [facility] 08-12-2023 Miscellaneous Notes The following approved medication [...] advise. Jolly Mullins documented in this encounter [facility] 06-20-2023 History of Present illness Narrative GENERAL [...] input(s): "APTT", "PT", "INR" in the last 37133 hours. Cardiac Enzymes I saw and evaluated the patient. Discussed with the resident and agree with resident's findings and plan as documented in the resident's note. Sandrine Julien MD documented in this encounter [facility] 06-04-2023 History of Past i llness Narrative [...] of this encounter (statuses as of 12/11/2023) [facility] History of Past illness Narrative* Problem Noted [...] of this encounter (statuses as of 12/19/2023) [facility] History of Past illness Narrative* Problem Noted [...] of this encounter (statuses as of 12/30/2023) [facility] Instructions* Patient Instructions* Nora Varghese APRN.SHINGLE INSPECTOR - 06/03/2023 9:32 AM EDT PATIENT PREOPERATIVE INSTRUCTIONS Sandrine Julien, * has scheduled you for your procedure at this surgery center: [facility] Scheduling Office: [phone] --[id number] [place] [address]. Please read below carefully for your personalized [...] Procedures: - YOU MUST HAVE A RESPONSIBLE NURSES EDUCATOR TAKE YOU HOME. A FISHING ROD ASSEMBLER OR ADMINISTRATIVE SALES ASSISTANT CANNOT BE MADE A RESPONSIBLE NURSES EDUCATOR. - We recommend that a responsible person [...] call the Friday before. Your surgeon s block sorter will tell you what time to call the office. - If you have not reached the departmental block sorter by 5 P.M., call [phone] after 5 P.M. the day before your surgery. Please be aware that emergency situations arise, which may delay or change your surgical time. If this happens, we will notify you as soon as possible and regret any inconvenience. If you already have an Advance Directive, please fax a copy to [phone] or email to for it to be [...] day. Nora Varghese APRN.KALIA [facility] History and physical note * Nora Varghese [...] fevers. Neurological: No history of TIA's, stroke, CHUCKING AND BORING MACHINE OPERATOR tumor, impaired sensorium, hemiplegia, paraplegia orquadraplegia. No [...] REQ 2 CATH 2 SITS W/O SUBQ PORT/CLIENT RELATIONS SPECIALIST 09/18/06 LEFT INTERNAL JUGULAR PAST SURGICAL HISTORY [...] SHUNT 10/14/07 RMVL FRANK CVC W/O SUBQ PORT/CLIENT RELATIONS SPECIALIST 02/06/07 Removal of left IJ tessio catheters [...] or any previous visit (from the past 68649 hour(s)). Assessment Patient has the following medical [...] have a large neck STOP-Bang Score: 2 [id number] Score: Age: <65 Sex: male CHF history: No Hypertension history: Yes Stroke/TIA/thromboembolism history: No Vascular disease history: No Diabetes history: Yes [id number] Score: 2 ANESTHESIA FINDINGS: Intubation History: No [...] 8:51 AM PAGER/CONTACT #: documented in this encounterFult[facility]08-28-[facility] History of Present illness Narrative* Christy Salter [...] 02, 2023 2:05 PM documented in this encounterFulton County Health Center08-28-2023 NoteHNO ID: [id number] Author: Yuli Henderson RT(R) Service: Radiology Author Type: Technologist Type: Progress Notes Filed: 06/02/2023 12:43 PM Note Text: Summary: xr [address] [place] [address] Radiology Service Progress Note PATIENT NAME: Homar [...] BY: RT Luke(R) June 02, 2023 12:43 [facility] History of Present illness Narrative* Yuli Henderson, RT(R) - 06/02/2023 8:45 AM EDTSummary: xr [address] [place] [address] Radiology Service Progress Note PATIENT NAME: Homar [...] 02, 2023 12:43 PM documented in this encounterFulton County [facility] Center08-25-2023 History and physical note * Sandrine Julien [...] REQ 2 CATH 2 SITS W/O SUBQ PORT/CLIENT RELATIONS SPECIALIST 09/18/06 LEFT INTERNAL JUGULAR PAST SURGICAL HISTORY [...] SHUNT 10/14/07 RMVL FRANK CVC W/O SUBQ PORT/CLIENT RELATIONS SPECIALIST 02/06/07 Removal of left IJ tessio catheters [...] Level: 4 - Moderate documented in this encounterFulton County [facility] Center08-25-2023 History of Present illness Narrative* Emiliana Loyd [...] you will receive a call from our behavior specialist, with instructions on where, and when to arrive. If you have not received a call, please call [phone] before 4pm. No food or drink, after [...] sister agree to appt. documented in this encounterFulton County Health Center08-02-2023 [facility] Medical Records Department [address] [place] [id number] History Physical Exam 05/07/23 0738 MR#: [id number] Acct: [id number] Name: HOMAR FALLON Rep #: [id number] : 1965 [id number] From: David Friend DO PCP: Dr. Tung Aguilar MD Status:[facility] Location: [place] [address] History and Physical Date of Admission: 05/07/23 [...] doctor last week, she would prefer that mcc he be on lower dose of omeprazole, [...] for many months/years with worsening around 2020. [facility] pancreatic/kidney transplants in 2007 r/t DM type [...] oriented x3 Quality Reporting Tobacco Screening ([facility] 138) Smoking Status: Never smoker Assessment and [...] clinical changes since date of exam. 05/07/23 9566 Cosigner Signature (if applicable): CC: Dr. Tung Aguilar MD; David Friend, [facility]ignedWDetwiler [facility]08-02-[address] [facility]08-02-[address] [facility]07-13-2023 History of Present illness Narrative* Tung [...] REQ 2 CATH 2 SITS W/O SUBQ PORT/CLIENT RELATIONS SPECIALIST 09/18/06 LEFT INTERNAL JUGULAR PAST SURGICAL HISTORY [...] SHUNT 10/14/07 RMVL FRANK CVC W/O SUBQ PORT/CLIENT RELATIONS SPECIALIST 02/06/07 Removal of left IJ tessio catheters [...] shots. Tung Aguilar MD documented in this encounterFulton County Health Center05-02-2023 History of Present illness Narrative* Mehran Urrutia, ALODIZE MACHINE HELPER.SHINGLE INSPECTOR - 02/04/2023 8:48 AM EDT Patient presents [...] REQ 2 CATH 2 SITS W/O SUBQ PORT/CLIENT RELATIONS SPECIALIST 09/18/06 LEFT INTERNAL JUGULAR PAST SURGICAL HISTORY [...] SHUNT 10/14/07 RMVL FRANK CVC W/O SUBQ PORT/CLIENT RELATIONS SPECIALIST 02/06/07 Removal of left IJ tessio catheters [...] 1 year, sooner if needed Mehran Urrutia, ALODIZE MACHINE HELPER.SHINGLE INSPECTOR I spent a total of 35 minutes on the date of the service which included [id number] patient care, completing clinical documentation, obtaining and/or reviewing separately obtained history, performing a medically appropriate examination, counseling and educating the patient/family/caregiver, and ordering medications, tests, or procedures. documented in this encounterFulton County Health Center03-27-2023 History of Present illness Narrative* Isabel Boogie [...] visits Payer: Payor: [employer] MEDICARE / Plan: [employer] / Product Type: HMO / Care Gap [...] 30, 2022 11:11 AM documented in this encounterFulton County Health Center03-07-2023 NoteHNO ID: [id number] Author: Isha Coleman MD Service: ? Author [...] Date Value 01/10/2022 Negative 07/13/2015 Negative Specific [place], Ur (no units) Date Value 01/10/2022 1.011 [...] Memory: Memory normal. Risk/Benefit Discussion: FOLLOW UP ([id number]; 3s): Return if symptoms worsen or fail to improve. ASSESSMENT/PLAN: 1. Elevated PSA - ICD9: 790.93, ICD10: R97.20 Isha Coleman Please note: This note has been produced using speech recognition software and may contain errors related to that system including grammar, punctuation, spelling, gender and words and phrases that may be inappropriate.[facility]03-07-2023 Instructions* Patient Instructions* Isha Coleman MD - 12/10/2022 11:00 AM EST INSTRUCTIONS FROM DR. COLEMAN: PSA is back to previous values and normal so no further evaluation needed documented in this encounterFulton County Health Center03-07-2023 History of Present illness Narrative* Isha Coleman [...] Date Value 01/10/2022 Negative 07/13/2015 Negative Specific [place], Ur (no units) Date Value 01/10/2022 1.011 [...] that may be inappropriate. documented in this encounterFulton County Health Center01-31-2023 Miscellaneous Notes* Telephone Encounter - Mehran Urrutia [...] and advise. Corrine Ulloa documented in this encounterFulton County Health Center01-12-2023 History of Past illness Narrative* Problem Noted [...] of this encounter (statuses as of 10/17/2022) [facility] of Past illness Narrative* Problem Noted [...] of this encounter (statuses as of 11/05/2022) [facility] History of Past illness Narrative* Problem Noted [...] of this encounter (statuses as of 12/12/2022) [facility] History of Past illness Narrative* Problem Noted [...] of this encounter (statuses as of 12/30/2022) [facility] History of Past illness Narrative* Problem Noted [...] of this encounter (statuses as of 02/05/2023) [facility] History of Past illness Narrative* Problem Noted [...] of this encounter (statuses as of 02/07/2023) [facility]01-[facility] History of Past illness Narrative* Problem Noted [...] of this encounter (statuses as of 04/17/2023) [address]12-2023 History of Past illness Narrative* Problem [...] of this encounter (statuses as of 05/30/2023) [facility] History of Past illness Narrative* Problem Noted [...] of this encounter (statuses as of 05/30/2023) [facility] History of Past illness Narrative* Problem Noted [...] of this encounter (statuses as of 05/30/2023) [facility] History of Past illness Narrative* Problem Noted [...] of this encounter (statuses as of 06/03/2023) [facility] of Past illness Narrative* Problem Noted [...] of this encounter (statuses as of 06/03/2023) [facility] of Past illness Narrative* Problem Noted [...] of this encounter (statuses as of 06/20/2023) [facility] of Past illness Narrative* Problem Noted [...] of this encounter (statuses as of 08/10/2023) [facility] of Past illness Narrative* Problem Noted [...] of this encounter (statuses as of 08/13/2023) [facility] of Past illness Narrative* Problem Noted [...] of this encounter (statuses as of 08/15/2023) [facility] of Past illness Narrative* Problem Noted [...] of this encounter (statuses as of 09/11/2023) [facility] History of Present illness Narrative* Tung Aguilar [...] REQ 2 CATH 2 SITS W/O SUBQ PORT/CLIENT RELATIONS SPECIALIST 09/18/06 LEFT INTERNAL JUGULAR PAST SURGICAL HISTORY [...] SHUNT 10/14/07 RMVL FRANK CVC W/O SUBQ PORT/CLIENT RELATIONS SPECIALIST 02/06/07 Removal of left IJ tessio catheters [...] above. Tung Aguilar MD documented in this encounterFulton County Health Center12-07-2022 History of Present illness Narrative* Rosa Medina [...] visits Payer: Payor: [employer] MEDICARE / Plan: [employer] / Product Type: HMO / Care Gap [...] 11, 2022 8:37 AM documented in this encounterFulton County Health Center12-05-2022 NoteHNO ID: [id number] Author: Isha Coleman MD Service: ? Author [...] Date Value 01/10/2022 Negative 07/13/2015 Negative Specific [place], Ur (no units) Date Value 01/10/2022 1.011 [...] Gait: Gait is intac (more content not included)...[facility] 09-09-2022 Instructions* Patient Instructions* Isha Coleman MD - 09/09/2022 10:09 AM EST PSA-3 months and see me after Take the Bactrim antibiotic now documented in this encounterFulton County Health Center12-05-2022 History of Present illness Narrative* Isha Coleman [...] Date Value 01/10/2022 Negative 07/13/2015 Negative Specific [place], Ur (no units) Date Value 01/10/2022 1.011 [...] al. N Engl J Med(2004)350:[id number] and Juliette TEREAS et al. J Urol(2003)169:125-29. Prostate Ultrasound With [...] that may be inappropriate. documented in this encounterFulton County Health Center11-09-2022 Miscellaneous Notes* Telephone Encounter - Tung Aguilar MD - 08/14/2022 12:42 PM EST Discussed with patient to see urology, please set up documented in this encounterFulton County Health Center11-07-2022 NoteHNO ID: [id number] Author: RT Solomon(R) Service: Radiology Author Type: [...] BY: RT Solomon(R) August 12, 2022 1:31 [facility]11-07-2022 History of Present illness Narrative* RT [...] 12, 2022 1:31 PM documented in this encounterFulton County Health Center11-03-2022 History of Present illness Narrative* Suleiman Almanza [...] REQ 2 CATH 2 SITS W/O SUBQ PORT/CLIENT RELATIONS SPECIALIST 09/18/06 LEFT INTERNAL JUGULAR PAST SURGICAL HISTORY [...] SHUNT 10/14/07 RMVL FRANK CVC W/O SUBQ PORT/CLIENT RELATIONS SPECIALIST 02/06/07 Removal of left IJ tessio catheters [...] history context and comparison. documented in this encounterFulton County Health Center10-31-2022 Miscellaneous Notes* Telephone Encounter - Odette Montoya [...] Thanks, Sushant Almanza PA-C documented in this encounterFulton County Health Center10-24-2022 [facility] Medical Records Department [address] [place] [address] History Physical Exam 07/29/22 1157 MR#: [id number] Acct: [id number] Name: HOMAR FALLON Rep #: [id number] : 1965 56 From: David Friend DO PCP: Dr. Tung Aguilar MD Status:[facility] Location: [place] [address] History and Physical Date of Admission: 07/29/22 [...] oriented x3 Quality Reporting Tobacco Screening ([facility] 138) Smoking Status: Never smoker Assessment and [...] Dr. Tung Aguilar MD; David Barraza DO SignedWDetwiler [facility]10-17-2022 Miscellaneous Notes* Telephone Encounter - Sissy Segal - 07/22/2022 1:56 PM EDT The following approved medication requests have been transmitted electronically. Requested Prescriptions Signed Prescriptions Disp Refills mycophenolate Mofetil (CELLCEPT) 500 mg tablet 180 tablet 3 Sig: TAKE 1 TABLET BY MOUTH TWICE DAILY Authorizing Provider: MEHRAN URRUTIA APRN.SHINGLE INSPECTOR documented in this encounterFulton County Health Center07-12-2022 History of Present illness Narrative* Tung Aguilar [...] REQ 2 CATH 2 SITS W/O SUBQ PORT/CLIENT RELATIONS SPECIALIST 09/18/06 LEFT INTERNAL JUGULAR PAST SURGICAL HISTORY [...] SHUNT 10/14/07 RMVL FRANK CVC W/O SUBQ PORT/CLIENT RELATIONS SPECIALIST 02/06/07 Removal of left IJ tessio catheters [...] six months and prn. documented in this encounterFulton County Health Center04-07-2022 History of Present illness Narrative* Mehran Urrutia, ALODIZE MACHINE HELPER.SHINGLE INSPECTOR - 01/10/2022 10:33 AM EDT Patient presents [...] REQ 2 CATH 2 SITS W/O SUBQ PORT/CLIENT RELATIONS SPECIALIST 09/18/06 LEFT INTERNAL JUGULAR PAST SURGICAL HISTORY [...] SHUNT 10/14/07 RMVL FRANK CVC W/O SUBQ PORT/CLIENT RELATIONS SPECIALIST 02/06/07 Removal of left IJ tessio catheters [...] expectantly Mehran Urrutia APRN.CNP documented in this encounterFulton County Health Center11-11-2012 History of Past illness Narrative* Problem Noted Date Resolved Date H/O pancreas transplant 08/16/2012 08/30/20 20 Pancreas transplant 04/05/2008 08/16/2012 Diabetes with renal manifestations 10/08/2005 08/16/2012 documented as of this encounter (statuses as of 01/14/2022) [facility] of Past illness Narrative* Problem Noted Date Resolved Date H/O pancreas transplant 08/16/2012 08/30/20 20 Pancreas transplant 04/05/2008 08/16/2012 Diabetes with renal manifestations 10/08/2005 08/16/2012 documented as of this encounter (statuses as of 01/14/2022) [facility] of Past illness Narrative* Problem Noted Date Resolved Date H/O pancreas transplant 08/16/2012 08/30/20 20 Pancreas transplant 04/05/2008 08/16/2012 Diabetes with renal manifestations 10/08/2005 08/16/2012 documented as of this encounter (statuses as of 01/24/2022) [facility] of Past illness Narrative* Problem Noted Date Resolved Date H/O pancreas transplant 08/16/2012 08/30/20 20 Pancreas transplant 04/05/2008 08/16/2012 Diabetes with renal manifestations 10/08/2005 08/16/2012 documented as of this encounter (statuses as of 04/16/2022) [facility] of [facility] illness Narrative* Problem Noted Date Resolved Date H/O pancreas transplant 08/16/2012 08/30/20 20 Pancreas transplant 04/05/2008 08/16/2012 Diabetes with renal manifestations 10/08/2005 08/16/2012 documented as of this encounter (statuses as of 06/19/2022) [facility] of [facility] illness Narrative* Problem Noted Date Resolved Date H/O pancreas transplant 08/16/2012 08/30/20 20 Pancreas transplant 04/05/2008 08/16/2012 Diabetes with renal manifestations 10/08/2005 08/16/2012 documented as of this encounter (statuses as of 07/23/2022) [facility] illness Narrative* Problem Noted Date Resolved Date H/O pancreas transplant 08/16/2012 08/30/20 20 Pancreas transplant 04/05/2008 08/16/2012 Diabetes with renal manifestations 10/08/2005 08/16/2012 documented as of this encounter (statuses as of 08/09/2022) [facility] of [facility] illness Narrative* Problem Noted Date Resolved Date H/O pancreas transplant 08/16/2012 08/30/20 20 Pancreas transplant 04/05/2008 08/16/2012 Diabetes with renal manifestations 10/08/2005 08/16/2012 documented as of this encounter (statuses as of 08/13/2022) [facility] illness Narrative* Problem Noted Date Resolved Date H/O pancreas transplant 08/16/2012 08/30/20 20 Pancreas transplant 04/05/2008 08/16/2012 Diabetes with renal manifestations 10/08/2005 08/16/2012 documented as of this encounter (statuses as of 08/21/2022) [facility] Narrative* Problem Noted Date Resolved Date H/O pancreas transplant 08/16/2012 08/30/20 20 Pancreas transplant 04/05/2008 08/16/2012 Diabetes with renal manifestations 10/08/2005 08/16/2012 documented as of this encounter (statuses as of 09/11/2022) [facility] Narrative* Problem Noted Date Resolved Date H/O pancreas transplant 08/16/2012 08/30/20 20 Pancreas transplant 04/05/2008 08/16/2012 Diabetes with renal manifestations 10/08/2005 08/16/2012 documented as of this encounter (statuses as of 09/12/2022) [facility] Narrative* Problem Noted Date Resolved Date H/O pancreas transplant 08/16/2012 08/30/20 20 Pancreas transplant 04/05/2008 08/16/2012 Diabetes with renal manifestations 10/08/2005 08/16/2012 documented as of this encounter (statuses as of 09/17/2022) [facility] Diagnosis Screening for genitourinary condition Screening for other and unspecified genitourinary condition documented in this encounter [facility]* Diagnosis Kidney replaced by transplant- Primary 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 I (juvenile type) diabetes mellitus with other specified manifestations, not stated as uncontrolled documented in this encounter [facility]* Diagnosis Kidney replaced by transplant- Primary Sore throat Acute pharyngitis Aftercare following organ transplant Thrombocytopenia (HCC) Thrombocytopenia, unspecified Current use of proton pump inhibitor Encounter for long-term (current) use of other medications documented in this encounter [facility]* Diagnosis Onset Date Resolution Status Dysphagia acute Esophageal pain acute Gastroesophageal reflux disease noneactive [facility] Work Phone: Evaluation note* Diagnosis Essential hypertension- Primary Unspecified essential hypertension Gastric bezoar, sequela Acute gastric erosion 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 Pure hypercholesterolemia Prophylactic immunotherapy Need for prophylactic immunotherapy Kidney replaced by transplant 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) documented in this encounter [facility]* Diagnosis Onset Date Resolution Status Dysphagia acute Esophageal pain acute Gastroesophageal reflux disease noneactive Trichobezoar in stomach acut e [facility] Work Phone: Evaluation note* Diagnosis 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 Kidney replaced by transplant [facility] Diagnosis 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 Kidney replaced by transplant [facility]* Diagnosis Elevated PSA- Primary Elevated prostate specific antigen (PSA) [facility] Elevated PSA Elevated prostate specific antigen (PSA) [facility]* Diagnosis Elevated PSA- Primary Elevated prostate specific antigen (PSA) Abnormal ultrasound Other nonspecific (abnormal) findings on radiological and other examinations of body structure documented [facility] encounter [facility]* Diagnosis Elevated PSA Elevated prostate specific antigen (PSA) Abnormal ultrasound Other nonspecific (abnormal) findings on radiological and other examinations of body structure [facility] encounter [facility]* Diagnosis 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)- Primary 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) Pure hypercholesterolemia Essential hypertension Unspecified essential hypertension Gastroparesis Gastroesophageal reflux disease without esophagitis Esophageal reflux Kidney replaced by transplant documented [facility] encounter [facility]* Diagnosis Need for prophylactic immunotherapy [facility] encounter [facility]* Diagnosis Elevated PSA- Primary Elevated prostate specific antigen (PSA) documented in this encounter [facility]* Diagnosis Kidney replaced by transplant- Primary 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 I (juvenile type) diabetes mellitus with other specified manifestations, not stated as uncontrolled Aftercare following organ transplant Thrombocytopenia (HCC) Thrombocytopenia, unspecified [facility] encounter [facility]* Diagnosis Screening for genitourinary condition Screening for other and unspecified genitourinary condition documented in this encounter [facility]* Diagnosis Pure hypercholesterolemia- Primary Essential hypertension [...] of immune mechanism [facility] encounter [facility]* Diagnosis Onset Date Resolution Status Gastroparesis due to DM [facility] Work Phone: Evaluation note* Diagnosis Gastric bezoar, initial encounter- Primary Pre-op exam Preoperative examination, unspecified Gastric bezoar, initial encounter Pre-op exam Preoperative examination, unspecified [facility] encounter [facility]* Diagnosis Bezoar, initial encounter- Primary Gastroparesis due to secondary diabetes (HCC) Secondary diabetes mellitus with neurological manifestations, not stated as uncontrolled, or unspecified Gastric bezoar, initial encounter Pre-op exam Preoperative examination, unspecified documented [facility] this encounter [facility]* Diagnosis Bezoar, initial encounter Gastric bezoar, initial encounter Pre-op exam Preoperative examination, unspecified documented in this encounter [facility]* Diagnosis Pre-op evaluation- Primary Preoperative examination, [...] Preoperative examination, unspecified [facility]* Diagnosis 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 Kidney replaced by transplant [facility]* Diagnosis Gastroparesis [facility] Diagnosis Gastroparesis- Primary [facility]* Diagnosis Need for prophylactic immunotherapy [facility]* Diagnosis Kidney replaced by transplant- Primary Need for prophylactic immunotherapy 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 I (juvenile type) diabetes mellitus with other specified manifestations, not stated as uncontrolled Aftercare following organ transplant Thrombocytopenia [facility]) Thrombocytopenia, unspecified [facility]* Diagnosis Screening for genitourinary condition Screening for other and unspecified genitourinary condition [facility]* Diagnosis Pre-op evaluation- Primary Preoperative examination, unspecified Essential hypertension Unspecified essential hypertension Pure hypercholesterolemia Gastroesophageal reflux disease without esophagitis Esophageal reflux Kidney replaced by transplant 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 Kidney replaced by transplant [facility]* Diagnosis Pre-op evaluation- Primary Preoperative examination, unspecified Essential hypertension Unspecified essential hypertension Pure hypercholesterolemia Gastroesophageal reflux disease without esophagitis Esophageal reflux Kidney replaced by transplant 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..] to unspecified cause [facility] Diagnosis Pre-op evaluation- Primary Preoperative examination, unspecified Essential hypertension Unspecified essential hypertension Pure hypercholesterolemia Gastroesophageal reflux disease without esophagitis Esophageal reflux Kidney replaced by transplant 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) Screening for colon cancer- Primary Special screening for malignant neoplasms, colon [facility] Diagnosis Pre-op evaluation- Primary Preoperative examination, unspecified Essential hypertension Unspecified essential hypertension Pure hypercholesterolemia Gastroesophageal reflux disease without esophagitis Esophageal reflux Kidney 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) Kidney replaced by transplant 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) Kidney 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)- Primary Kidney replaced by transplant [facility] Diagnosis Pre-op evaluation- Primary Preoperative examination, [...] unspecified genitourinary condition [facility] Diagnosis Pre-op evaluation- Primary Preoperative examination, [...] unspecified genitourinary condition [facility] Diagnosis Pre-op evaluation- Primary Preoperative examination, unspecified Essential hypertension Unspecified essential hypertension Pure hypercholesterolemia Gastroesophageal reflux disease without esophagitis Esophageal reflux Kidney 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) Kidney replaced by transplant 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 Tung Aguilar MD Status:REG S MD Location: [place] [address] History and Physical Date of Admission: 05/07/23 [...] doctor last week, she would prefer that mcc he be on lower dose of omeprazole, [...] for many months/years with worsening around 2020. [facility] pancreatic/kidney transplants in 2007 r/t DM type [...] oriented x3 Quality Reporting Tobacco Screening ([facility] 138) Smoking Status: Never smoker Assessment and [...] no clinicalchanges since date of exam. 05/07/23 3165 <Electronically signed by David Barraza DO> Cosigner Signature (if applicable): CC: Dr. Tung Aguilar MD; David Barraza DO~ Signed [facility] Work Phone: [facility] (narrative)* Diagnostic Procedure Only (Routine) - Authorized Specialty Diagnoses / Procedures Referred By Contac t Referred To Contact US IMAGING Diagnoses Elevated PSA Procedures US PROSTATE US PELVIC NONOBSTETRIC IMAGE BELINDA LIMITED/F/U Suleiman Almanza PA-C [address] [place] [address] Us Imaging Referral ID Status Reason Start Date Expiration Date Visits Requested Visits Authorized [id number] Authorized Auto-Generat ed Referral 08/08/2022 10/05/2022 1 1 [facility] for referral (narrative)* Diagnostic Procedure Only (Routine) - Closed Specialty Diagnoses / Procedures Referred By Mahi t Referred To Contact US IMAGING Diagnoses Elevated PSA Procedures US PROSTATE US PELVIC NONOBSTETRIC IMAGE BELINDA GUERRERO/F/U Suleiman Almanza PA-C [address] [place] [address] Us Imaging Referral ID Status Reason Start Date Expiration Date V isits Requested Visits Authorized [id number] Closed Auto-Generate d Referral 08/08/2022 10/05/2022 1 1 [facility] for referral (narrative)* Diagnostic Procedure Only (Routine) - Authorized Specialty Diagnoses / Procedures Referred By Contac t Referred To Contact XR IMAGING Diagnoses Bezoar, initial encounter Procedures XR UPPER GI SINGLE CONTRAST RADIOLOGIC EXAM UPR GI TR[place] [address] [place] [address] [place] [address] Referral ID Status Reason Start Date Expiration Date Visits Requested Visits Authorized [id number] Authorized Auto-Generat ed Referral 05/30/2023 10/05/2023 1 1 [facility] for referral (narrative)* Diagnostic Procedure Only (Routine) - Pending Review Specialty Diagnoses / Procedures Referred By Mahi barboza Referred To Contact MOLECULAR & FUNCTIONAL IMAGING Diagnoses Gastroparesis Procedures NM GASTRIC EMPTYING SOLID GASTRIC [place] [address] [place] [address] Molecular & Functional Imaging [address] [place] [address] Referral ID Status Reason Start Date Expiration Date Visits Requested Visits Authorized [id number] Pending Review Auto-Generat ed Referral 12/19/2023 07/19/2024 1 1 [facility] for referral (narrative)* Diagnostic Procedure Only (Routine) - Closed Specialty Diagnoses / Procedures Referred By Mahi barboza Referred To Contact MOLECULAR & FUNCTIONAL IMAGING Diagnoses Gastroparesis Procedures NM GASTRIC EMPTYING SOLID GASTRIC [place] [address] [place] [address] Molecular & Functional Imaging [address] [place] [address] Referral ID Status Reason Start Date Expiration Date V isits Requested Visits Authorized [id number] Closed Auto-Generate d Referral 12/19/2023 07/19/2024 1 1 [facility] for visit Narrative* Diagnostic Procedure Only (Routine) - Closed Specialty Diagnoses / Procedures Referred By [facility] Referred To Contact US IMAGING Diagnoses Elevated PSA Procedures US PROSTATE US PELVIC NONOBSTETRIC IMAGE DCMTN LIMITED/F/U Suleiman Almanza PA-C [address] [place] [address] Us Imaging Referral ID Status Reason Start Date Expiration Date V isits Requested Visits Authorized [id number] Closed Auto-Generate d Referral 08/08/2022 10/05/2022 1 1 [facility] for visit Narrative* Diagnostic Procedure Only (Routine) - Closed Specialty Diagnoses / Procedures Referred By [facility] Referred To Contact XR IMAGING Diagnoses Bezoar, initial encounter Procedures XR UPPER GI SINGLE CONTRAST RADIOLOGIC EXAM UPR GI TRC [place] [address] [place] [address] [place] [address] Referral ID Status Reason Start Date Expiration Date V isits Requested Visits Authorized [id number] Closed Auto-Generate d Referral 05/30/2023 10/05/2023 1 1 [facility] Chief Complaint and Reason for Visit Chief [...] Date/ Time Name of Medical Power of Quality Manager SISTERS April 02, 2022 11:48am Living Will No April 02, 2022 11:48am Power of Quality Manager Yes April 02 11:48am Advance Directive Response Recorded Date/ Time Name of Medical Power of Quality Manager FAMILY May 01, 2023 1:16pm Living Will Yes May 01, 2023 1:16pm Power of Quality Manager Yes May 01 1:16pm Summary Purpose Reason for Referral Specialty Diagnoses / Procedures Referred By Mahi barboza Referred To Contact Urology Diagnoses Elevated PSA Abnormal ultrasound Procedures CONSULT TO UROLOGY OFFICE/OUTPATIENT [facility] 60-74 MINUTES Tung Aguilar MD [address] [place] [address] Referral ID Status Reason Start Date Expiration Date Visits Requested Visits Authorized [id number] Pending Review PCP Requested Referral 08/14/2022 08/14/2023 1 1 Specialty Diagnoses / Procedures Referred By Mahi barboza Referred To Contact Diagnoses Gastric bezoar, initial encounter Pre-op exam Procedures REFER TO PACC - PRE ANESTHESIA CONSULTATION CLINIC OFFICE/OUTPATIENT [facility] 60-[place] [address] [place] [address] Referral ID Status Reason Start Date Expiration Date Visits Requested Visits Authorized [id number] Pending Review PCP Requested Referral 05/30/2023 05/29/2024 1 1 Specialty Diagnoses / Procedures Referred By Contac t Referred To Contact [facility] Diagnoses Gastric bezoar, initial encounter Pre-op exam Procedures ECG COMPLETE ECG ROUTINE ECG W/LEAST 12 LDS W/I&[place] [address] [place] [address] [facility] [address] [place] [address] Referral ID Status Reason Start Date Expiration Date Visits Requested Visits Authorized [id number] Authorized Auto-Generat ed Referral 05/30/2023 05/29/2024 1 1 Specialty Diagnoses / Procedures Referred By Contac t Referred To Contact Gastroenterology Diagnoses Screening for colon cancer Procedures CONSULT TO GASTROENTEROLOGY OFFICE/OUTPATIENT [facility] 60 MINUTES Tung Aguilar MD [address] [place] [address] Referral ID Status Reason Start Date Expiration Date Visits Requested Visits Authorized [id number] Authorized PCP Requested Referral 10/23/2024 10/23/2025 1 1 Additional Source Comments Source Comments (unrecognize d section and content) In the event this informatio n is protected by the Federal Confidentiality of Alcohol and Drug Abuse Patient Records regulations: The Federal rules restrict any use of the information to criminally investigate or prosecute any alcohol or drug abuse patient.[facility] the event this information is protected by the Federal Confidentiality of Alcohol and Drug Abuse Patient Records regulations: The Federal rules restrict any use of the information to criminally investigate or prosecute any alcohol or drug abuse patient.[facility] the event this information is protected by the Federal Confidentiality of Alcohol and Drug Abuse Patient Records regulations: The Federal rules restrict any use of the information to criminally investigate or prosecute any alcohol or drug abuse patient.[facility] the event this information is protected by the Federal Confidentiality of Alcohol and Drug Abuse Patient Records regulations: The Federal rules restrict any use of the information to criminally investigate or prosecute any alcohol or drug abuse patient.[facility] the event this information is protected by the Federal Confidentiality of Alcohol and Drug Abuse Patient Records regulations: The Federal rules restrict any use of the information to criminally investigate or prosecute any alcohol or drug abuse patient.[facility] the event this information is protected by the Federal Confidentiality of Alcohol and Drug Abuse Patient Records regulations: The Federal rules restrict any use of the information to criminally investigate or prosecute any alcohol or drug abuse patient.[facility] the event this information is protected by the Federal Confidentiality of Alcohol and Drug Abuse Patient Records regulations: The Federal rules restrict any use of the information to criminally investigate or prosecute any alcohol or drug abuse patient.[facility] the event this information is protected by the Federal Confidentiality of Alcohol and Drug Abuse Patient Records regulations: The Federal rules restrict any use of the information to criminally investigate or prosecute any alcohol or drug abuse patient.[facility] the event this information is protected by the Federal Confidentiality of Alcohol and Drug Abuse Patient Records regulations: The Federal rules restrict any use of the information to criminally investigate or prosecute any alcohol or drug abuse patient.[facility] Center[facility] the event this information is protected by the Federal Confidentiality of Alcohol and Drug Abuse Patient Records regulations: The Federal rules restrict any use of the information to criminally investigate or prosecute any alcohol or drug abuse patient.[facility] the event this information is protected by the Federal Confidentiality of Alcohol and Drug Abuse Patient Records regulations: The Federal rules restrict any use of the information to criminally investigate or prosecute any alcohol or drug abuse patient.[facility] Center[facility] the event this information is protected by the Federal Confidentiality of Alcohol and Drug Abuse Patient Records regulations: The Federal rules restrict any use of the information to criminally investigate or prosecute any alcohol or drug abuse patient.[facility] Center[facility] the event this information is protected by the Federal Confidentiality of Alcohol and Drug Abuse Patient Records regulations: The Federal rules restrict any use of the information to criminally investigate or prosecute any alcohol or drug abuse patient.[facility] Center[facility] the event this information is protected by the Federal Confidentiality of Alcohol and Drug Abuse Patient Records regulations: The Federal rules restrict any use of the information to criminally investigate or prosecute any alcohol or drug abuse patient.[facility] CenterIn the event this information is protected by the Federal Confidentiality of Alcohol and Drug Abuse Patient Records regulations: The Federal rules restrict any use of the information to criminally investigate or prosecute any alcohol or drug abuse patient.[facility] CenterIn the event this information is protected by the Federal Confidentiality of Alcohol and Drug Abuse Patient Records regulations: The Federal rules restrict any use of the information to criminally investigate or prosecute any alcohol or drug abuse patient.[facility] CenterIn the event this information is protected by the Federal Confidentiality of Alcohol and Drug Abuse Patient Records regulations: The Federal rules restrict any use of the information to criminally investigate or prosecute any alcohol or drug abuse patient.[facility] CenterIn the event this information is protected by the Federal Confidentiality of Alcohol and Drug Abuse Patient Records regulations: The Federal rules restrict any use of the information to criminally investigate or prosecute any alcohol or drug abuse patient.[facility] CenterIn the event this information is protected by the Federal Confidentiality of Alcohol and Drug Abuse Patient Records regulations: The Federal rules restrict any use of the information to criminally investigate or prosecute any alcohol or drug abuse patient.[facility] CenterIn the event this information is protected by the Federal Confidentiality of Alcohol and Drug Abuse Patient Records regulations: The Federal rules restrict any use of the information to criminally investigate or prosecute any alcohol or drug abuse patient.[facility] CenterIn the event this information is protected by the Federal Confidentiality of Alcohol and Drug Abuse Patient Records regulations: The Federal rules restrict any use of the information to criminally investigate or prosecute any alcohol or drug abuse patient.[facility] CenterIn the event this information is protected by the Federal Confidentiality of Alcohol and Drug Abuse Patient Records regulations: The Federal rules restrict any use of the information to criminally investigate or prosecute any alcohol or drug abuse patient.[facility] CenterIn the event this information is protected by the Federal Confidentiality of Alcohol and Drug Abuse Patient Records regulations: The Federal rules restrict any use of the information to criminally investigate or prosecute any alcohol or drug abuse patient.[facility]In the event this information is protected by the Federal Confidentiality of Alcohol and Drug Abuse Patient Records regulations: The Federal rules restrict any use of the information to criminally investigate or prosecute any alcohol or drug abuse patient.[facility]In the event this information is protected by the Federal Confidentiality of Alcohol and Drug Abuse Patient Records regulations: The Federal rules restrict any use of the information to criminally investigate or prosecute any alcohol or drug abuse patient.[facility] the event this information is protected by the Federal Confidentiality of Alcohol and Drug Abuse Patient Records regulations: The Federal rules restrict any use of the information to criminally investigate or prosecute any alcohol or drug abuse patient.[facility] CenterIn the event this information is protected by the Federal Confidentiality of Alcohol and Drug Abuse Patient Records regulations: The Federal rules restrict any use of the information to criminally investigate or prosecute any alcohol or drug abuse patient.[facility] CenterIn the event this information is protected by the Federal Confidentiality of Alcohol and Drug Abuse Patient Records regulations: The Federal rules restrict any use of the information to criminally investigate or prosecute any alcohol or drug abuse patient.[facility] CenterIn the event this information is protected by the Federal Confidentiality of Alcohol and Drug Abuse Patient Records regulations: The Federal rules restrict any use of the information to criminally investigate or prosecute any alcohol or drug abuse patient.[facility] CenterIn the event this information is protected by the Federal Confidentiality of Alcohol and Drug Abuse Patient Records regulations: The Federal rules restrict any use of the information to criminally investigate or prosecute any alcohol or drug abuse patient.[facility] CenterIn the event this information is protected by the Federal Confidentiality of Alcohol and Drug Abuse Patient Records regulations: The Federal rules restrict any use of the information to criminally investigate or prosecute any alcohol or drug abuse patient.[facility] CenterIn the event this information is protected by the Federal Confidentiality of Alcohol and Drug Abuse Patient Records regulations: The Federal rules restrict any use of the information to criminally investigate or prosecute any alcohol or drug abuse patient.[facility] CenterIn the event this information is protected by the Federal Confidentiality of Alcohol and Drug Abuse Patient Records regulations: The Federal rules restrict any use of the information to criminally investigate or prosecute any alcohol or drug abuse patient.[facility] CenterIn the event this information is protected by the Federal Confidentiality of Alcohol and Drug Abuse Patient Records regulations: The Federal rules restrict any use of the information to criminally investigate or prosecute any alcohol or drug abuse patient.[facility] CenterIn the event this information is protected by the Federal Confidentiality of Alcohol and Drug Abuse Patient Records regulations: The Federal rules restrict any use of the information to criminally investigate or prosecute any alcohol or drug abuse patient.[facility] CenterIn the event this information is protected by the Federal Confidentiality of Alcohol and Drug Abuse Patient Records regulations: The Federal rules restrict any use of the information to criminally investigate or prosecute any alcohol or drug abuse patient.[facility] CenterIn the event this information is protected by the Federal Confidentiality of Alcohol and Drug Abuse Patient Records regulations: The Federal rules restrict any use of the information to criminally investigate or prosecute any alcohol or drug abuse patient.[facility] CenterIn the event this information is protected by the Federal Confidentiality of Alcohol and Drug Abuse Patient Records regulations: The Federal rules restrict any use of the information to criminally investigate or prosecute any alcohol or drug abuse patient.[facility] CenterIn the event this information is protected by the Federal Confidentiality of Alcohol and Drug Abuse Patient Records regulations: The Federal rules restrict any use of the information to criminally investigate or prosecute any alcohol or drug abuse patient.[facility] CenterIn the event this information is protected by the Federal Confidentiality of Alcohol and Drug Abuse Patient Records regulations: The Federal rules restrict any use of the information to criminally investigate or prosecute any alcohol or drug abuse patient.[facility] CenterIn the event this information is protected by the Federal Confidentiality of Alcohol and Drug Abuse Patient Records regulations: The Federal rules restrict any use of the information to criminally investigate or prosecute any alcohol or drug abuse patient.[facility] CenterIn the event this information is protected by the Federal Confidentiality of Alcohol and Drug Abuse Patient Records regulations: The Federal rules restrict any use of the information to criminally investigate or prosecute any alcohol or drug abuse patient.[facility] CenterIn the event this information is protected by the Federal Confidentiality of Alcohol and Drug Abuse Patient Records regulations: The Federal rules restrict any use of the information to criminally investigate or prosecute any alcohol or drug abuse patient.[facility] CenterIn the event this information is protected by the Federal Confidentiality of Alcohol and Drug Abuse Patient Records regulations: The Federal rules restrict any use of the information to criminally investigate or prosecute any alcohol or drug abuse patient.[facility] CenterIn the event this information is protected by the Federal Confidentiality of Alcohol and Drug Abuse Patient Records regulations: The Federal rules restrict any use of the information to criminally investigate or prosecute any alcohol or drug abuse patient.[facility] Care Teams (unrecognized sec tion and content) Charge Accounts Audit Clerk Relationship Specialty Start Date End Date Tung Aguilar MD [address] [place] [address] PCP - General Family Practice 04/07/18 Charge Accounts Audit Clerk Relationship Specialty Start Date End Date Tung Aguilar MD [address] [place] [address] PCP - General Family Practice 04/07/18 Charge Accounts Audit Clerk Relationship Specialty Start Date End Date Tung Aguilar MD [address] [place] [address] PCP - General Family Practice 04/07/18 Charge Accounts Audit Clerk Relationship Specialty Start Date End Date Tung Aguilar MD [address] [place] [address] PCP - General Family Practice 04/07/18 Charge Accounts Audit Clerk Relationship Specialty Start Date End Date Tung Aguilar MD [address] [place] [address] PCP - General Family Practice 04/07/18 Charge Accounts Audit Clerk Relationship Specialty Start Date End Date Tung Aguilar MD [address] [place] [address] PCP - General Family Medicine 04/07/18 Charge Accounts Audit Clerk Relationship Specialty Start Date End Date Tung Aguilar MD [address] [place] [address] PCP - General Family Medicine 04/07/18 Charge Accounts Audit Clerk Relationship Specialty Start Date End Date Tung Aguilar MD [address] [place] [address] PCP - General Family Medicine 04/07/18 Charge Accounts Audit Clerk Relationship Specialty Start Date End Date Tung Aguilar MD [address] [place] [address] PCP - General Family Medicine 04/07/18 Charge Accounts Audit Clerk Relationship Specialty Start Date End Date Tung Aguilar MD [address] [place] [address] PCP - General Family Medicine 04/07/18 Charge Accounts Audit Clerk Relationship Specialty Start Date End Date Tung Aguilar MD [address] [place] [address] PCP - General Family Medicine 04/07/18 Charge Accounts Audit Clerk Relationship Specialty Start Date End Date Tung Aguilar MD [address] [place] [address] PCP - General Family Medicine 04/07/18 Charge Accounts Audit Clerk Relationship Specialty Start Date End Date Tung Aguilar MD [address] [place] [address] PCP - General Family Medicine 04/07/18 Charge Accounts Audit Clerk Relationship Specialty Start Date End Date Tung Aguilar MD [address] [place] [address] PCP - General Family Medicine 04/07/18 Charge Accounts Audit Clerk Relationship Specialty Start Date End Date Tung Aguilar MD [address] [place] [address] PCP - General Family Medicine 04/07/18 Charge Accounts Audit Clerk Relationship Specialty Start Date End Date Tung Aguilar MD [address] [place], [place] [address] PCP - General Family Medicine 04/07/18 Charge Accounts Audit Clerk Relationship Specialty Start Date End Date Tung Aguilar MD [address] [place], [place] [id number] PCP - General Family Medicine 04/07/18 Team Status: Active Member Role Status Dates Dr. Tung Aguilar MD Primary Care Provider Active Team Status: Inactive Member Role Status Dates Dr. Tung Aguilar MD Primary Care Provider, Referring Provider Active Griselda Ann DOOR AND ARRIVAL ATTENDANT, DOOR AND ARRIVAL ATTENDANT-C Attending Provider Active Team Status: Active Member Role Status Dates Dr. Tung Aguilar MD Primary Care Provider, Referring Provider Active Dr. David Barraza DO Attending Provider, Other Prov ider Active Team Status: Inactive Member Role Status Dates Dr. Tung Aguilar MD Primary Care Provider, Referring Provider Active Dr. David Barraza DO Attending Provider Active Charge Accounts Audit Clerk Relationship Specialty Start Date End Date Tung Aguilar MD [address] [place], [place] [id number] PCP - General Family Medicine 04/07/18 Charge Accounts Audit Clerk Relationship Specialty Start Date End Date Tung Aguilar MD [address] [place], [place] [address]281 PCP - General Family Medicine 04/07/18 Charge Accounts Audit Clerk Relationship Specialty Start Date End Date Tung Aguilar MD [address] [place], [place] [id number] PCP - General Family Medicine 04/07/18 Charge Accounts Audit Clerk Relationship Specialty Start Date End Date Tung Aguilar MD [address] [place], [place] [id number] PCP - General Family Medicine 04/07/18 Charge Accounts Audit Clerk Relationship Specialty Start Date End Date Tung Aguilar MD [address] [place] [address] PCP - General Family Medicine 04/07/18 Charge Accounts Audit Clerk Relationship Specialty Start Date End Date Tung Aguilar MD [address] [place] [address] PCP - General Family Medicine 04/07/18 Charge Accounts Audit Clerk Relationship Specialty Start Date End Date Tung Aguilar MD [address] [place] [address] PCP - General Family Medicine 04/07/18 Charge Accounts Audit Clerk Relationship Specialty Start Date End Date Tung Aguilar MD [address] [place] [address] PCP - General Family Medicine 04/07/18 Charge Accounts Audit Clerk Relationship Specialty Start Date End Date Tung Aguilar MD [address] [place] [address] PCP - General Family Medicine 04/07/18 Charge Accounts Audit Clerk Relationship Specialty Start Date End Date Tung Aguilar MD [address] [place] [address] PCP - General Family Medicine 04/07/18 Charge Accounts Audit Clerk Relationship Specialty Start Date End Date Tung Aguilar MD [address] [place], [place] [address] PCP - General Family Medicine 04/07/18 Charge Accounts Audit Clerk Relationship Specialty Start Date End Date Tung Aguilar MD [address] [place] [address] PCP - General Family Medicine 04/07/18 Charge Accounts Audit Clerk Relationship Specialty Start Date End Date Tung Aguilar MD [address] [place], [place] [address] PCP - General Family Medicine 04/07/18 Charge Accounts Audit Clerk Relationship Specialty Start Date End Date Tung Aguilar MD [address] [place], [place] [address]87[address] PCP - General Family Medicine 04/07/18 Charge Accounts Audit Clerk Relationship Specialty Start Date End Date Tung Aguilar MD [address] [place] [address] PCP - General Family Medicine 04/07/18 Charge Accounts Audit Clerk Relationship Specialty Start Date End Date Tung Aguilar MD [address] [place] [address] PCP - General Family Medicine 04/07/18 Charge Accounts Audit Clerk Relationship Specialty Start Date End Date Tung Aguilar MD [address] [place] [address] PCP - General Family Medicine 04/07/18 Leticia Jasso, TRINY.SHINGLE INSPECTOR [address] [place] [address] Carding Machine Operator Family Medicine 09/13/24 Alicia Chen ALODIZE MACHINE HELPER.SHINGLE INSPECTOR [address] [place], [place] [address] Carding Machine Operator Family Medicine 09/13/24 Charge Accounts Audit Clerk Relationship Specialty Start Date End Date Tung Aguilar MD [address] [place], [place] [address]37[address] PCP - General Family Medicine 04/07/18 Leticia Jasso ALODIZE MACHINE HELPER.SHINGLE INSPECTOR [address] [place] [address] Carding Machine Operator Family [facility] 09/13/24 Alicia Chen ALODIZE MACHINE HELPER.SHINGLE INSPECTOR [address] [place] [address] [facility] Charge Accounts Audit Clerk Relationship Specialty Start Date End Date Tung Aguilar MD [address] [place] [address] PCP - General Family Medicine 04/07/18 Leticia Jasso ALODIZE MACHINE HELPER.SHINGLE INSPECTOR [address] [place] [address] [facility]24 Alicia Chen ALODIZE MACHINE HELPER.SHINGLE INSPECTOR [address] [place] [address] [facility] 09/13/24 Charge Accounts Audit Clerk Relationship Specialty Start Date End Date Tung Aguilar MD [address] [place] [address] PCP - General Family Medicine 04/07/18 Leticia Jasso ALODIZE MACHINE HELPER.SHINGLE INSPECTOR [address] [place] [address] [facility] Medicine 09/13/24 Alicia Chen ALODIZE MACHINE HELPER.SHINGLE INSPECTOR [address] [place] [address] [facility] 09/13/24 Charge Accounts Audit Clerk Relationship Specialty Start Date End Date Tung Aguilar MD [address] [place], [place] [address] PCP - General Family Medicine 04/07/18 Leticia Jasso, ALODIZE MACHINE HELPER.SHINGLE INSPECTOR [address] [place], [place] [address] [facility] 09/13/24 Alicia Chen, ALODIZE MACHINE HELPER.SHINGLE INSPECTOR [address] [place], [place] [address] [facility] 09/13/24 Charge Accounts Audit Clerk Relationship Specialty Start Date End Date Tung Aguilar MD [address] [place], [place] [address]38[address] PCP - General [facility] Medicine 04/07/18 Leticia Jasso, ALODIZE MACHINE HELPER.SHINGLE INSPECTOR [address] [place], [place] [address]28[address] [facility] 09/13/24 Alicia Chen, ALODIZE MACHINE HELPER.SHINGLE INSPECTOR [address] [place], [place] [address] [facility] 09/13/24 Reason for Visit (unrecogniz ed section and content) Reason Comments Follow Up Specialty Diagnoses / Procedures Referred By Contmonster t Referred To Contact Nephrology Diagnoses Kidney replaced by transplant Procedures CONSULT TO NEPHROLOGY NEW PATIENT VISIT LEVEL 5 Tung Aguilar MD [address] [place] [address] Referral ID Status Reason Start Date Expiration Date V isits Requested Visits Authorized [id number] Closed PCP Requested Referral 10/16/2021 10/16/2022 1 1 Reason Comments Follow Up 6 month Reason Comments Refill Request Reason Comments Follow Up Reason Comments Results Appointment Reason Onset Date Comments Population Health Navigation Outreach 09/11/2022 [facility] PCSA Reason Comments PSA Specialty Diagnoses / Procedures Referred By Contac t Referred To Contact Urology Diagnoses Elevated PSA Abnormal ultrasound Procedures CONSULT TO UROLOGY OFFICE/OUTPATIENT NEW HIGH MDM 60-74 MINUTES Tung Aguilar MD [address] [place] [address] Referral ID Status Reason Start Date Expiration Date Visits Requested Visits Authorized [id number] Pending Review PCP Requested Referral 08/14/2022 08/14/2023 1 1 Reason Comments Results Reason Comments 6 Month Exam Reason Comments Med Change Request Reason Onset Date Comments Population Health [facility] Outreach 12/30/2022 ACO Care Gaps Reason Comments 06/04/23 Reason Comments Pre-Op Teaching Reason Comments New Patient Reason Comments Pre-Op Exam Specialty Diagnoses / Procedures Referred By Contac t Referred To Contact [facility] Diagnoses Gastric bezoar, initial encounter Pre-op exam Procedures ECG COMPLETE ECG ROUTINE ECG W/LEAST 12 LDS W/I&[place] [address] [place] [address] [facility] [address] [place] [address] Referral ID Status Reason Start Date Expiration Date V isits Requested Visits Authorized [id number] Closed Auto-Generate d Referral 05/30/2023 05/29/2024 1 1 Reason Comments Post Op Reason Onset Date Comments Refill Request 08/12/2023 Reason Onset Date Comments Population Health [facility] Outreach 08/14/2023 ACO CARE GAP Reason Comments Radiology NM Specialty Diagnoses / Procedures Referred By Contac t Referred To Contact [facility] Diagnoses Gastroparesis Procedures NM GASTRIC EMPTYING SOLID GASTRIC [place] [address] [place] [address] [facility] [address] [place] [address] Referral ID Status Reason Start Date Expiration Date V isits Requested Visits Authorized [id number] Closed Auto-Generate d Referral 12/19/2023 07/19/2024 1 1 Reason Comments Post Op Reason Comments Rash Ringworm LEFT forear m x 2 days Reason Comments Recheck Follow up UC- L arm rash Reason Onset Date Comments Refill Request 09/08/2024 Reason Comments Results Reason Onset Date Comments Population Health Navigation Outreach 03/10/2025 [employer] [place] (unrecognized sect ion and content) No Status Records FoundNo Status Records FoundNo Status Records FoundNo Status Records FoundNo Status Records Found INFORMATION SOURCE (unrecogn ized section and content) DATE CREATED AUTHOR [facility]/13/2022 [facility] DATE CREATED AUTHOR AUTHOR'S ORGANIZ ATION 12/12/2022 [facility] DATE CREATED AUTHOR AUTHOR'S ORGANIZ ATION 06/02/2023 [facility] DATE CREATED AUTHOR AUTHOR'S ORGANIZ ATION 07/14/2023 [facility] DATE CREATED AUTHOR AUTHOR'S ORGANIZ ATION 08/03/2025 [facility] FOR RECORDS PERTAINING TO PATIENTS WHO [...] BE BASED ON THE PRIMARY CLINICAL RECORDS. [facility] [employer] [facility]. provides no warranty or guarantee of the accuracy or completeness of information in this document.
[2025-08-05 04:15] LABS: Hematocrit 34.7 % (40-54); Hemoglobin 10.7 g/dL (13.0-16.5)
[2025-08-05] MEDS: 0.9% Normal Saline (1000mL) 1,000 ML 100 ML IV (04:26)
[2025-08-05] MEDS: 0.9% Saline Lock 10 ML Syringe IV (04:29)
[2025-08-05] MEDS: Pantoprazole Sodium 80 MG in 0.9% Normal Saline (100mL Bag) 80 ML 10 MG CONT INF ×2 (04:31→16:30)
--- NOTE | 2025-08-05 05:55 | EKG12_ITS ---
Test Reason : PRE-OP Blood Pressure : */* mmHG Vent. Rate : 86 BPM Atrial Rate : 86 BPM P-R Int : 136 ms QRS Dur : 88 ms QT Int : 372 ms P-R-T Axes : 52 30 40 degrees QTcB Int : 445 ms Normal sinus rhythm Normal ECG When compared with ECG of 07-Jul-2006 09:35, No significant change was found Confirmed by JOSEPH POTTS, COY ([id number]), order editor EDMUND JOHNSON ([id number]) on 08/06/2025 8:05:21 AM Referred By: HEIKE Confirmed By: COY RUIZ MD
[2025-08-05] MEDS: Electrolyte Solution/Peg's 4000 ML PO (06:57)
[2025-08-05 06:58] LABS: Hematocrit 34.5 % (40-54); Hemoglobin 10.7 g/dL (13.0-16.5); Immature Granulocytes Count 0.110 X10^3/uL (0.0-0.0); Mean Corp Hgb Conc 31.0 g/dL (32-36); Mean Corpuscular Volume 69.4 fL (80-94); Mean Platelet Vol. 10.0 fl (6.2-12.0); NRBC Flagged by Analyzer 0 % (0-5); Platelet Count 191 K/mm3 (150-450); RBC Distribution Width CV 15.3 % (11.6-14.6); RBC Distribution Width SD 37.6 fl (35.1-43.9); Red Blood Count 4.97 M/mm3 (4.6-6.2); White Blood Count 5.3 K/mm3 (4.4-11.0)
[2025-08-05 07:09] LABS: Prothrombin Time (Protime)PT. 16.5 SECONDS (11.7-14.9)
[2025-08-05 07:11] LABS: Partial Thromboplast Time 49.0 Seconds (24.1-36.2)
[2025-08-05 07:21] LABS: AST(SGOT) 21 U/L (<=37); Alanine Aminotransfer ALT/SGPT 10 U/L (<=46); Albumin, Serum 3.5 g/dL (3.4-4.8); Alkaline Phosphatase 95 U/L (40-129); Anion Gap 10 (5-15); BUN 8 mg/dL (4-19); BUN/Creat Ratio 10.8 RATIO (10-20); Calcium,Total 8.8 mg/dL (7.6-11.0); Carbon Dioxide 22.7 mmol/L (21.0-32.0); Chloride 104 mmol/L (98-108); Estimated Creatinine Clearance 107.61 ml/min (50-250); Globulin 2.5 g/dL (2.2-4.2); Glucose 234 mg/dL (70-99); Potassium 4.4 mmol/L (3.3-5.1)
--- NOTE | 2025-08-05 10:20 | CASEMGMT ---
NIKKI LAZAR ASSESSMENT RN NAGI to room to meet with patient for initial transition planning/care coordination assessment. NIKKI LAZAR introduced self and role at [facility]. Pt voices understanding and consents to assessment at this time. Pt resting in bed in no distress at this time. Pt is A/O at this time and answers all questions appropriately. Care providers, pharmacy, and demographics verified/updated at this time. Strata: 2 PCP: Dr Isaac Specialists: Dr Valdez-podiatry, Dr Barraza-GI, [facility] physicians for kidney & pancreas transplant f/u. Preferred Pharmacy: [facility] Insurance: [facility]pan [facility] [place] Prescription Benefit: yes LNOK: Sisters, Nancy and Mitzi Living Arrangements: Lives alone in one-story home w/basement and 2 steps to enter. Pt does not have to go to the basement. Pt is independent w/ADL's and IADL's. He does hire a cleaning lady that comes monthly. 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 Transportation: Pt states drives self and states no transportation concerns at this time. His sister will take him home @ dc. DME: States has the following DME: Walker, cane, and W/C available, but does not use. Has lt arm prosthesis, but does not use. Pt states no need for further DME at this time. HHC/SNF: Pt has not HHC in the past. No hx of SNF. Pt wishes to return home and states has no concerns with going home at time of discharge. 6 clicks 24, indicating pt safe to discharge home alone. PLAN: Home Georgie JANSEN RN, CM
--- NOTE | 2025-08-05 15:24 | CHAPLAIN ---
Type of Pastoral Visit _x__ Initial Visit ___ Follow-up Visit ___ On-call Visit ___ General Patient Visit ___ Spiritual Assessment ___ Family Conference ___ Bereavement ___ Rapid Response ___ Code Blue ___ Other (describe below) Pastoral Care Referral From _x__ Patient ___ Family ___ Nurse ___ Physician ___ Photoengraving Proofer ___ Assistant Boys Track Coach ___ Other (describe below) Sacrament/Intervention __x_ Active listening ___ Anointing ___ Amish ___ Bereavement ___ Communion ___ Tiff exploration ___ ___ Life review _x__ Prayer ___ Reconciliation ___ Sacrament of Sick _x__ Supportive presence ___ Wedding ___ Other (describe below) Pastoral Comments patient has been unavailable due to procedure preps but was found resting on third attempt; pt is welcoming but states that he is 'doing some better' and 'has family around to help'; pt does welcome prayer for his health and this procedure
--- NOTE | 2025-08-05 18:10 | PCM.HOSP.N ---
Hospitalist Note Patient was seen briefly today, he was drinking GoLytely prep for colonoscopy which was to happen this afternoon. Patient's hemoglobin actually went up to 10.7 today, CBC will be rechecked tomorrow morning.
--- NOTE | 2025-08-06 01:08 | CON.PCM.GI_ITS ---
HPI Consult Data Date of Consult: 08/06/25 HPI Narrative Reason for Consultation: Anemia and GI bleed HPI Narrative: HOMAR CHAPMAN, is a 59 M with a past medical history of GERD, HTN, HLD, ESRD s/p renal/pancreatic transplant in 2007, and chronic iron deficiency anemia who presents to the [facility] ED on 08/05/25 with a one-week history of abdominal pain, primarily left-sided, with associated nausea but no emesis. He also reports the onset of dark stools. * CT Abdomen/Pelvis without Contrast (08/05/25): * Multiple enlarged retroperitoneal lymph nodes (largest 2.3 cm). * Surgical changes of the stomach and small bowels. * Mild gastroparesis/gastritis. * Changes of central mesenteric panniculitis. * Mild bilateral basilar atelectatic pulmonary changes. * Moderate diffuse spondylosis with chronic Schmorl's node formation. * Mild prostatomegaly. * Severe chronic atrophy of the siletz tribe kidneys. * Mild fullness of the left lower quadrant renal transplant collecting system secondary to reflux. * Splenomegaly (14.6 cm). * Diffuse thickening of the cecum and proximal ascending colon, possibly inflammatory pathology. Adjacent mildly enlarged lymph nodes (largest 1.3 cm). * Multifocal mesenteric nodularity and thickening. * Absent distal thirds of the siletz tribe pancreas. * Unremarkable pancreatic transplant in the right lower quadrant. [facility] Medical History History of renal disease Gastric reflux Wears glasses Diabetes History of renal dialysis Non-smoker Leg cramps Hypertension History of Holter monitoring Amputation of left hand Cataracts, bilateral GERD (gastroesophageal reflux disease) ESRD (end stage renal disease) History of end stage renal disease Home Medications Medication Instructions Recorded Last Taken Type mycophenolate mofetil 500 mg tablet 500 mg PO BID ANTI REJECTION 07/09/20 07/29/22 History tacrolimus 1 mg capsule, 2 mg PO DAILY@2000 antirejec tion 07/10/20 04/04/22 History immediate-release med tacrolimus 1 mg capsule, 3 mg PO DAILY@0800 anitrejec tion 07/10/20 07/29/22 History immediate-release med ferrous sulfate 325 mg (65 mg 325 mg PO BID 08/05/25 U nknowdebi History iron) tablet Allergy/AdvReac Type Severity Reaction Status Date / Time iodine Allergy Intermediate Rash Verified 08/04/25 21:02 doxazosin AdvReac Rash Verified 08/04/25 21:02 doxycycline AdvReac Rash Verified 08/04/25 21:02 Penicillins AdvReac Rash Verified 08/04/25 21:02 Family History Father Cancer Hypertension Diabetes Mother Hypertension Diabetes Surgical History History of amputation of left hand History of esophagogastroduodenoscopy (EGD) Hx of arteriovenostomy for renal dialysis Hx of colonoscopy Hx of foot surgery Pancreas transplanted Kidney transplant recipient Social History household members: none Smoking Status: Never smoker alcohol intake: never substance use type: does not use ROS ROS Narrative Admission Review of Systems: CONSTITUTIONAL: No weight loss, fever, chills, + weakness or fatigue. HEENT: Eyes: No visual loss, blurred vision, double vision or yellow sclerae. Ears, Nose, Throat: No hearing loss, sneezing, congestion, runny nose or sore throat. SKIN: No rash or itching, lesions, wounds. CARDIOVASCULAR: No chest pain, chest pressure or chest discomfort, palpitations, edema, orthopnea, syncopal events. RESPIRATORY: No shortness of breath, cough or sputum, wheezing, hemoptysis. GASTROINTESTINAL: + anorexia, nausea without vomiting, dark stools, abdominal pain. No constipation, diarrhea, melena, BRBPR. GENITOURINARY: No dysuria, frequency, urgency or retention. NEUROLOGICAL: No headache, dizziness, syncope, paralysis, ataxia, numbness or tingling in the extremities, focal weakness, change in bowel or bladder control, seizure. MUSCULOSKELETAL: + muscle, back pain, joint pain or stiffness. HEMATOLOGIC: + Chronic anemia, acute on chronic with current presentation, current active bleeding concerns as noted. LYMPHATICS: No enlarged nodes. No history of splenectomy. PSYCHIATRIC: No history of depression or anxiety. ENDOCRINOLOGIC: No reports of sweating, cold or heat intolerance. No polyuria or polydipsia. ALLERGIES: No history of asthma, hives, eczema or rhinitis. Physical Exam Narrative Physical Examination: General: Awake, alert, oriented x 3 and cooperative, seated upright in bed in no apparent distress. Skin: Normal color, normal turgor, no icterus, no cyanosis except occasional stage ecchymoses, abrasion. HEENT: AT/NC, EOMI, PERRLA, MMM, no carotid bruits or JVD noted. Lungs: CTA bilaterally, moderate effort, mild decrease BL bases, no rales, ronchi or wheezing. Heart: Regular rate and rhythm; no gallop, rub audible. Abdomen: Soft, no specific pain elicited with palpation of the entire abdomen including the left lower quadrant and left side however patient is still reporting 8 out of 10 in severity pain, no marked distention, hyperactive BS, no appreciated HSM. Extremities: No cyanosis, no clubbing, no significant peripheral edema, status post left upper extremity distal amputation evident. Neurological: Patient awake, alert, oriented as noted, cognitive function intact; pupils equally reactive to light and accommodation, cranial nerves grossly normal, moving all 4 extremities, no focal deficits, strength mildly to moderately globally decreased. Psychiatric: Affect appears fatigued otherwise normal, no acute evidence of depressive or anxiety feelings. Lab / Micro Data 08/05/25 06:04 08/05/25 06:04 Labs: Laboratory Results - last 24 hr 08/04/25 22:10: Crossmatch See Detail 08/05/25 04:02: Hgb 10.7 L, Hct 34.7 L 08/05/25 06:04: WBC 5.3, RBC 4.97, Hgb 10.7 L, Hct 34.5 L, MCV 69.4 L, MCH 21.5 L, MCHC 31.0 L, RDW Std Deviation 37.6, RDW Coeff of Jairo 15.3 H, Plt Count 191, MPV 10.0, Immature Gran % (Auto) 2.100 H, Neut % (Auto) 77.6 H, Lymph % (Auto) 17.0 L, [place] % (Auto) 2.7, Eos % (Auto) 0.0, Baso % (Auto) 0.6, Absolute Neuts (auto) 4.1, Absolute Lymphs (auto) 0.89, Nucleated RBC % 0, PT 16.5 H, INR 1.3, APTT 49.0 H, Sodium 137, Potassium 4.4, Chloride 104, Carbon Dioxide 22.7, Anion Gap 10, BUN 8, Creatinine 0.73, Estim Creat Clear Calc 107.61, Est GFR (MDRD) Non-Af 104, BUN/Creatinine Ratio 10.8, Glucose 234 H, Hemoglobin A1c 5.9 H, Calcium 8.8, Total Bilirubin 0.33, AST 21, ALT 10, Alkaline Phosphatase 95, Total Protein 6.0, Albumin 3.5, Globulin 2.5, Albumin/Globulin Ratio 1.4 08/05/25 12:44: POC Glucose 180 H 08/05/25 18:58: POC Glucose 154 H 08/05/25 22:50: POC Glucose 116 H Imaging Radiology Impression Abdomen/Pelvis CT 08/04/25 21:36 IMPRESSION: Multiple enlarged retroperitoneal lymph nodes are noted with the largest measuring 2.3 cm. Surgical changes of the stomach and the small bowels. Mild gastroparesis/gastritis. Changes of central mesenteric panniculitis. Mild bilateral basilar atelectatic pulmonary changes. Moderate diffuse spondylosis with chronic Schmorl's node formation. Mild prostatomegaly. Severe chronic atrophy of the sile[place] tribe kidneys. Mild fullness of the left lower quadrant renal transplant collecting system secondary to reflux. Splenomegaly measuring 14.6 cm. Diffuse thickening of the cecum and proximal ascending colon, possibly inflammatory pathology. This can be followed up. Adjacent mildly enlarged lymph nodes are noted with the largest measuring 1.3 cm. Multifocal mesenteric nodularity and thickening. Absent distal thirds of the [place] tribe pancreas. Unremarkable pancreatic transplant in the right lower quadrant. Reading Location: [place] [address] Assessment & Plan Assessment/Plan (1) GI bleed: (2) Anemia: (3) History of pancreas transplant: (4) History of renal transplantation: PLAN: The patient presents with new onset left-sided abdominal pain and melena, suggestive of a potential gastrointestinal bleed. The CT scan reveals several concerning findings, including: * Gastrointestinal Bleed: The dark stools (melena) indicate an upper GI bleed, which needs immediate workup and management. * Abdominal Pain: The left-sided pain is likely related to the potential bleed or other findings on the CT. * Lymphadenopathy: Significant retroperitoneal lymphadenopathy (up to 2.3 cm) is a concerning finding that requires further investigation (e.g., biopsy) to rule out malignancy or post-transplant lymphoproliferative disorder (PTLD), given his transplant history and immunosuppression. * Colonic Thickening: Diffuse thickening of the cecum and proximal ascending colon with adjacent lymph nodes raises suspicion for inflammatory bowel disease, infection, or malignancy. * Splenomegaly: May be related to the underlying condition causing the other findings. * Gastroparesis/Gastritis: Likely contributing to the nausea. * Renal Transplant Status: Left lower quadrant renal transplant collecting system fullness noted, possibly due to reflux.The constellation of symptoms and imaging findings requires a comprehensive workup to identify the source of the GI bleed and the etiology of the lymphadenopathy and colonic thickening.P Plan Diagnostics: * Labs: CBC (assess for anemia/acute blood loss), CMP, LFTs, Coagulation panel, Type and screen, Stool occult blood test, Infectious workup (cultures if indicated). * EGD and colonoscopy \ to identify and potentially treat the source of the GI bleed. * Colonoscopy to further evaluate the cecal and ascending colon thickening/inflammation. * Consider CT chest/abdomen/pelvis with IV and oral contrast for better characterization of lymph nodes and colonic thickening, and to rule out distant disease if malignancy or PTLD is suspected. * Surgical consultation for possible lymph node biopsy if EGD/colonoscopy are negative for primary malignancy. Therapeutics: * IV fluids for resuscitation. * Type and crossmatch for potential blood transfusions if Hgb is low or unstable. * Initiate PPI therapy for potential peptic ulcer disease/gastritis bleed. * Hold anticoagulation/antiplatelet agents if applicable (not mentioned in Hx, but assumed given HLD/HTN/transplant history). Consults: * Oncology/Hematology if malignancy/PTLD is confirmed or highly suspected. * Transplant team for management of immunosuppression in the context of new findings. Charges/Coding Visit Charges Inpatient E&M: 73767 Init Hosp L3
[2025-08-06 02:41] VITALS: BP 143/74; PULSE 88; RESP 14; TEMP 36.9; O2SAT 98
[2025-08-06] MEDS: Pantoprazole Sodium 80 MG in 0.9% Normal Saline (100mL Bag) 80 ML 10 MG CONT INF ×2 (02:44→15:07)
[2025-08-06 04:37] LABS: Hematocrit 30.8 % (40-54); Hemoglobin 9.7 g/dL (13.0-16.5); Immature Granulocytes Count 0.080 X10^3/uL (0.0-0.0); Mean Corp Hgb Conc 31.5 g/dL (32-36); Mean Corpuscular Volume 69.5 fL (80-94); Mean Platelet Vol. 9.7 fl (6.2-12.0); NRBC Flagged by Analyzer 0 % (0-5); Platelet Count 222 K/mm3 (150-450); RBC Distribution Width CV 15.5 % (11.6-14.6); RBC Distribution Width SD 38.5 fl (35.1-43.9); Red Blood Count 4.43 M/mm3 (4.6-6.2); White Blood Count 7.0 K/mm3 (4.4-11.0)
[2025-08-06 05:50] VITALS: BMI 26.3
[2025-08-06 09:20] VITALS: BP 153/67; PULSE 87; RESP 16; TEMP 36.4; O2SAT 98
[2025-08-06] MEDS: 0.9% Normal Saline (1000mL) 1,000 ML 50 ML IV (13:00)
[2025-08-06 15:04] VITALS: BP 156/88; PULSE 89; RESP 16; TEMP 36.8; O2SAT 98
--- NOTE | 2025-08-06 17:26 | PCM.PN.HOSP ---
Reason for Visit Chief Complaint: Abdominal pain, dark stools. Subjective Subjective No further abdominal pain, completed bowel prep and denies any bright red blood in stool, no nausea or vomiting Objective Data Objective Data Vital Signs: Vital Signs Temp Pulse Resp BP Pulse Ox O2 Del Method 98.2 F 89 16 156/88 H 98 Room Air 08/06/25 15:04 08/06/25 15:04 08/06/25 15:04 08/06/25 15:04 08/06/25 15:04 08/06/25 15:04 Oxygen Delivery Method Room Air Weight: 80.6 kg Body Mass Index (BMI) 26.3 Intake & Output: Intake and Output for Last 24 Hours 08/04/25 08/05/25 08/06/25 23:59 23:59 23:59 Intake Total 3285 / 3285 250 / 250 Balance 3285 / 3285 250 / 250 Lab / Micro Data 08/06/25 04:06 08/05/25 06:04 Labs: Laboratory Results - last 24 hr 08/05/25 18:58: POC Glucose 154 H 08/05/25 22:50: POC Glucose 116 H 08/06/25 04:06: WBC 7.0, RBC 4.43 L, Hgb 9.7 L, Hct 30.8 L, MCV 69.5 L, MCH 21.9 L, MCHC 31.5 L, RDW Std Deviation 38.5, RDW Coeff of Jairo 15.5 H, Plt Count 222, MPV 9.7, Immature Gran % (Auto) 1.100 H, Neut % (Auto) 76.1 H, Lymph % (Auto) 14.3 L, Weld % (Auto) 7.4, Eos % (Auto) 0.4, Baso % (Auto) 0.7, Absolute Neuts (auto) 5.3, Absolute Lymphs (auto) 1.00, Nucleated RBC % 0 08/06/25 06:39: POC Glucose 109 H 08/06/25 13:06: POC Glucose 108 H Physical Exam Narrative General: Alert, oriented, no apparent distress HEENT: Atraumatic, normocephalic Eyes: Anicteric, normal conjunctiva, extraocular movements grossly intact Neck: Supple Respiratory: Clear to auscultation bilaterally, normal respiratory effort Cardiovascular: Regular rate and rhythm GI: Soft, nontender, nondistended Extremities: No edema Musculoskeletal: Moving all extremities Neuro: No overt focal neurological deficits Skin: No rashes appreciated Psych: Cooperative Assessment & Plan Assessment/Plan (1) Anemia: PLAN: Plan 59-year-old male with a history of renal and pancreatic transplant in 2007 at the [facility] presented to [facility] ED 08/04/2025 due to abdominal pain on his left side that started several days before. On the day he presented he came in because he had black stool. In the ED patient afebrile, heart rate 110 with blood pressure initially documented at 99/48 however heart rate improved to the 80s with a blood pressure of 145/63, pulse ox 96% on room air. There was noted to be a downtrend in hemoglobin with previous hemoglobin of 14.9 and then around a week ago hemoglobin of 12.5 with hemoglobin in the ED of 10.3. He was started on Protonix and typed and crossed but not transfused and due to vitals being stable and hemoglobin of 10. 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 A CT scan was done without contrast as patient refused contrast due to his history of renal transplant and concern for his kidney. Patient admitted due to concern for GI bleed given the drop in hemoglobin with self-reported dark stools and abdominal pain with plans for endoscopy. # Acute anemia, suspected secondary to blood loss - Previous hemoglobin 14.9 and then a week ago hemoglobin 12.5 with hemoglobin in the ED of 10.3 -Noncon CT with diffuse thickening of the cecum and proximal ascending colon - Patient completed colon prep and is to have colonoscopy 08/07 - Has not required blood transfusion - Remains on Protonix drip - GI following and colonoscopy today as above # Enlarged retroperitoneal lymph nodes - With the largest measuring 2.3 cm - Also noted central mesenteric panniculitis and multifocal mesenteric nodularity and thickening - Patient to have endoscopy, may need biopsy pending results of colonoscopy #Hx of renal and pancreatic transplants -In 2007 -Pt continued on home medications at this time -Will order tacrolimus level #DVT ppx: SCDs Tia Rod MD Charges/Coding Visit Charges Inpatient E&M: 22614 Subs Hosp L2
[2025-08-06 20:00] VITALS: BP 158/65; PULSE 86; RESP 15; TEMP 36.4; O2SAT 97
[2025-08-07] VITALS (13 sets, daily range): BP systolic 125–158; BP diastolic 58–93; PULSE 76–100; RESP 15–18; TEMP 36.3–36.6; O2SAT 96–99; BMI 26.3
[2025-08-07] MEDS: Pantoprazole Sodium 80 MG in 0.9% Normal Saline (100mL Bag) 80 ML 10 MG CONT INF (01:14)
[2025-08-07] MEDS: 0.9% Saline Lock 10 ML Syringe IV (01:43)
[2025-08-07 07:14] LABS: Hematocrit 34.3 % (40-54); Hemoglobin 10.2 g/dL (13.0-16.5); Mean Corp Hgb Conc 29.7 g/dL (32-36); Mean Corpuscular Volume 71.2 fL (80-94); Mean Platelet Vol. 9.9 fl (6.2-12.0); Platelet Count 222 K/mm3 (150-450); RBC Distribution Width CV 15.5 % (11.6-14.6); RBC Distribution Width SD 38.8 fl (35.1-43.9); Red Blood Count 4.82 M/mm3 (4.6-6.2); White Blood Count 5.6 K/mm3 (4.4-11.0)
[2025-08-07 07:34] LABS: Anion Gap 12 (5-15); BUN 7 mg/dL (4-19); BUN/Creat Ratio 9.8 RATIO (10-20); Calcium,Total 8.9 mg/dL (7.6-11.0); Carbon Dioxide 22.2 mmol/L (21.0-32.0); Chloride 104 mmol/L (98-108); Estimated Creatinine Clearance 110.64 ml/min (50-250); Glucose 112 mg/dL (70-99); Potassium 4.0 mmol/L (3.3-5.1)
--- NOTE | 2025-08-07 08:05 | PCM.PRE.AN2 ---
ASA Classification* ASA Classification ASA Classification: 3 and E Assessment & Plan Anesthesia* Anesthesia Assessment Anesthesia Assessment: Discussed sedation and/or anesthesia options, risks, benefits, and alternatives with patient/parents/legal guardian/POA. Questions invited. The patient/parents/legal guardian/POA seems to understand and agrees to proceed with anesthesia plan. Reviewed the physical assessment, medical history, allergy history and patient home medications list prior to surgery/procedure/anesthetic and documented any changes. Performed airway and anesthesia risk assessments. Anesthesia Type Anesthesia Type: MAC Anesthesia Focused Assessment* Temperature: 97.4 F Pulse Rate: 86 Blood Pressure: 155/71 Respiratory Rate: 15 Pulse Ox: 97 Airway Assessment Mouth opens: >3 cm Mallampati Score: II Labs Anesthesia Preop lab: CBC WBC, (4.4-11.0) 5.6 K/mm3 Today, 06:50 RBC, (4.6-6.2) 4.82 M/mm3 Today, 06:50 Hgb, (13.0-16.5) 10.2 g/dL L Today, 06:50 Hct, (40-54) 34.3 % L Today, 06:50 Plt Count, (150-450) 222 K/mm3 Today, 06:50 CHEMISTRY Potassium, (3.3-5.1) 4.0 mmol/L Today, 06:50 Sodium, (133-145) 137 mmol/L Today, 06:50 BUN, (4-19) 7 mg/dL Today, 06:50 Creatinine, (0.70-1.20) 0.71 mg/dL Today, 06:50 Glucose, (70-99) 112 mg/dL H Today, 06:50 POC Glucose, (74-106) 108 mg/dL H 08/06/25, 13:06 COAG PT, (11.7-14.9) 16.5 SECONDS H 08/05/25, 06:04 Pre-Assessment Diagnosis/Proposed Procedure Planned Operative Procedure(s): EGD Colonoscopy Anesthesia History Anesthesia History - order make up clerk: Anesthesia History - order make up clerk Hx Hospitalization No 05/01/23 13:16 Any Problems With Anesthesia No 08/05/25 03:30 Cholinesterase deficiency No 08/05/25 03:30 You/Your Family Experience No 08/05/25 03:30 fever (hyperthermia) with Relationship Recent Exposure to Contagious No 08/05/25 03:30 Disease Does patient have nerve No 08/05/25 03:30 stimulator Patient instructed to have device shut off --Does patient have Pacemaker or ICD? When Was Last Pacemaker Check QUESTION #4 FULL TEXT: You/Your Family Experience fever (hyperthermia) with Anesthesia Last Oral Intake Last Oral intake: Last Oral Intake NPO since Meds taken in AM with sips of water? Meds patient instructed to take am of surgery PONV PONV - order make up clerk: PONV - order make up clerk Female HX of Motion Sickness HX of N/V After Surgery Non-Smoker Duration of Surgery greater than 60 minutes Number of Risk Factors PONV Score Height & Weight Height & Weight: Anesthesia: Height & Weight Height 5 ft 9 in 08/05/25 12:45 Weight: 80.6 kg 08/06/25 05:50 Body Mass Index (BMI) 26.3 08/06/25 05:50 Respiratory Assessment Respiratory Assessment - order make up clerk: Respiratory Tract Infection Hx - order make up clerk Hx Respiratory Tract Infection No 08/05/25 03:30 STOP Sleep Apnea STOP Sleep Apnea - order make up clerk: STOP Sleep Apnea - order make up clerk Hx Hypertension No 08/05/25 03:22 Hx Sleep Apnea No 08/05/25 03:22 CPAP BIPAP Do you snore loudly (louder No 08/05/25 03:22 than talking or can be heard Do you often feel tired/ No 08/05/25 03:22 fatigued/ sleepy during daytime? Has anyone observed you stop No 08/05/25 03:22 breathing during sleep? STOP Results Negative 08/05/25 03:22 QUESTION #5 FULL TEXT : Do you snore loudly (louder than talking or can be heard through closed doors)? 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 Specify any problems Hx of Preganancy in last 3 N/A 08/05/25 03:22 Months Nurse Filling Out Transfusion [id number] 08/05/25 03:22 & Questions: Date: 08/05/25 08/05/25 03:22 Time: 03:23 08/05/25 03:22 Patient unable to answer at this time (ie. confused, unrespo /Reproduction History /Reproductive History - order make up clerk: /Reproductive Hx- order make up clerk Hx Now Gestational Age (in weeks): EDC: Hx Hx Para Hx Section SAB No 07/25/22 09:24 Active Medications Active Medications: Current Medications Generic Name Dose Route Start Last Admin Trade Name Freq PRN Reason Stop Dose Admin Acetaminophen 650 mg 08/05/25 03:05 08/06/25 21:42 Acetaminophen 325 Mg Tablet PO 650 mg Q4H PRN PRN Administration Fever, pain 1-07/15 Al Hydroxide/Mg Hydroxide 30 ml 08/05/25 03:05 Mag Hydrox/Al Hydrox/Simeth 30 Ml Udc PO Q6H PRN PRN Gastric Burning Albuterol Sulfate 2.5 mg 08/05/25 03:05 Albuterol 2.5 Mg/3 Ml Vial.Neb. INHALATION Q2H PRN PRN Dyspnea, wheezing Ferrous Sulfate 325 mg 08/05/25 12:00 08/06/25 19:20 Ferrous Sulfate 325 Mg Tablet PO Not Given 1200,1700 RADHA Guaifenesin 20 ml 08/05/25 03:05 Guaifenesin 10 Ml Udc (200mg/10ml) PO Q4H PRN PRN COUGH Hydralazine HCl 10 mg 08/05/25 03:05 Hydralazine 20 Mg/Ml Vial IV Q4H PRN PRN SBP > 160 Protocol Pantoprazole Sodium 80 mg/ 100 mls @ 10 mls/hr 08/05/25 03:05 08/07/25 01:14 EST Sodium Chloride CONT INF 10 mls/hr Q10H RADHA Administration Sodium Chloride 250 mls @ 15 mls/hr 08/05/25 03:05 IV .[id number] PRN Additional IVPB Infusion Sodium Chloride 1,000 mls @ 50 mls/hr 08/06/25 12:30 08/06/25 13:00 IV 50 mls/hr .Q20H RADHA Administration Melatonin 3 mg 08/05/25 03:05 Melatonin 3 Mg Tablet PO QHS PRN PRN INSOMNIA Morphine Sulfate 2 mg 08/05/25 03:05 08/07/25 01:43 EST Morphine 2 Mg/Ml Syringe IV 2 mg Q3H PRN PRN Administration Pain Score 6-10 Mycophenolate Mofetil 500 mg 08/05/25 10:00 08/06/25 21:38 Mycophenolate Mofetil 250 Mg Capsule PO 500 mg BID RADHA Administration Ondansetron HCl 4 mg 08/05/25 03:05 Ondansetron 4 Mg/2 Ml Vial IV Q8H PRN PRN NAUSEA/VOMITING Oxycodone HCl 5 mg 08/05/25 03:05 08/06/25 21:43 Oxycodone 5 Mg Tablet PO 5 mg Q4H PRN PRN Administration Pain Score 4-10 Sodium Chloride 10 - 40 ml 08/05/25 03:05 08/07/25 01:43 EST 0.9% Saline Lock 10 Ml Syringe IV 10 ml UD PRN Administration SALINE FLUSH Tacrolimus 2 mg 08/05/25 20:00 08/06/25 21:38 Tacrolimus Anhydrous 1 Mg Capsule PO 2 mg DAILY@1999 RADHA Administration Tacrolimus 3 mg 08/05/25 08:00 08/06/25 09:25 Tacrolimus Anhydrous 1 Mg Capsule PO 3 mg DAILY@0800 RADHA Administration [facility] Medical History History of renal disease Gastric reflux Wears glasses Diabetes History of renal dialysis Non-smoker Leg cramps Hypertension History of Holter monitoring Amputation of left hand Cataracts, bilateral GERD (gastroesophageal reflux disease) ESRD (end stage renal disease) History of end stage renal disease Home Medications Medication Instructions Recorded Last Taken Type mycophenolate mofetil 500 mg tablet 500 mg PO BID ANTIREJECTION 07/09/20 07/29/22 History tacrolimus 1 mg capsule, 2 mg PO DAILY@1999 antirejection 07/10/20 04/04/22 History immediate-release med tacrolimus 1 mg capsule, 3 mg PO DAILY@0800 anitrejection 07/10/20 07/29/22 History immediate-release med ferrous sulfate 325 mg (65 mg 325 mg PO BID 08/05/25 Unknown History iron) tablet Allergy/AdvReac Type Severity Reaction Status Date / Time iodine Allergy Intermediate Rash Verified 08/04/25 21:02 doxazosin AdvReac Rash Verified 08/04/25 21:02 doxycycline AdvReac Rash Verified 08/04/25 21:02 Penicillins AdvReac Rash Verified 08/04/25 21:02 Family History Father Cancer Hypertension Diabetes Mother Hypertension Diabetes Surgical History History of amputation of left hand History of esophagogastroduodenoscopy (EGD) Hx of arteriovenostomy for renal dialysis Hx of colonoscopy Hx of foot surgery Pancreas transplanted Kidney transplant recipient Social History household members: none Smoking Status: Never smoker alcohol intake: never substance use type: does not use Review of Systems (Anesthesia) ROS Narrative System reviewed and no additional complaints, except as documented.
--- NOTE | 2025-08-07 10:00 | COLBX_PTH ---
PATIENT: HOMAR CHAPMAN LOC: MS3 U#:[id number] AGE/SX: 59/M ROOM: KS314 RE08/05/[address]: Dr. Tia Rod MD : 1965 BED: 1 DIS: 08/07/2025 SPEC #: [id number] RECD: 08/08/25 07:17 STATUS: IGLESIA REQ #: [id number] MICHAEL: 08/07/25 10:[address]: David Barraza DEPT: SURGICAL PATHOLOGY RECD BY: Gerber Graandos ENTERED: 08/08/25 09:13 SP TYPE: COLON BX OTHR DR: MD Dr. Quang Rome DO Dr. Prakash Chand, MD Dr. Paige Pierce, MD Dr. William Lago, MD Heather Evans, NP-C FAN PersaudC EMERALD Ferrell Tissues: A - Cecum, NOS Procedures: Immunohistochemical Stains Surgery Specimen Level IV IHC Stain ADDITIONAL HEADER OPERATION: Colonoscopy with biopsies, EGD PRE-OP DIAGNOSIS: Anemia, GI bleed TISSUE SUBMITTED: A- Cecum biopsy MICROSCOPIC DIAGNOSIS A. Cecum, biopsy: - Atypical lymphoid infiltrate, suspicious for a lymphoproliferative disorder - see note. - Further assessment is PENDING expert consultation with [facility] (hematopathology division). Additional report will be forthcoming. Note: IHC for pankeratin is negative for evidence of a carcinoma. IHC for CD45, CD3 and CD20 are positive, supporting a lymphoid origin. MICROSCOPIC DESCRIPTION Slides are reviewed. All matched controls reacted appropriately. These tests were developed and their performance characteristics determined by [facility]. They may not have been cleared or approved by the U.S. Food and Drug Administration. The FDA has determined that such clearance or approval is not necessary. The above immunohistochemical markers and/or special stains have been reviewed by the Pathologist GROSS DESCRIPTION A. Received in fixative is one container labeled with the patient's name and designated "Cecum biopsy." The specimen consists of multiple irregular fragments of dumont tissue that in aggregate measure 1.2 x 0.9 x 0.3 cm. The specimen is totally submitted in one cassette. DE 08/08/2025 CPT:59222 ,[id number]
--- NOTE | 2025-08-07 10:51 | OP.PROVAT_ITS ---
08/07/2025 Tung Isaac Re : Upper GI endoscopy procedure for Vladimir Nesbittmikey Isaac This procedure was performed on Thursday, August 07, 2025. My impressions and recommendations are as follows: Impressions : - Normal esophagus. - A large amount of a trichobezoar in the stomach. - No gross lesions in the entire examined duodenum. - No specimens collected. Recommendations : - [facility] care. - Diabetic (ADA) diet. - Continue present medications. -Patient will need to be scheduled for endoscopic removal of the large phytobezoar. He will need to be intubated for the procedure. My findings are described in the full procedure note, which is enclosed. If I can be of further assistance, please feel free to contact me at . Sincerely, David Friend, 08/07/2025 10:50:35 AM This report has been signed electronically.
--- NOTE | 2025-08-07 10:51 | OP.EGD_ITS ---
Patient Name: Vladimir Fallon Procedure Date: 08/07/2025 9:46 AM Date of : 1965 Age: 59 Procedure: Upper GI endoscopy Indications: Acute post hemorrhagic anemia, Recent gastrointestinal bleeding Providers: David Barraza DO Medicines: Monitored Anesthesia Care Patient Profile: This is a 59 year old male. Refer to note in patient chart for documentation of history and physical. Patient has symptoms of acute epigastric abdominal pain. Complications: No immediate complications. Procedure: Pre-Anesthesia Assessment: - Prior to the procedure, a History and Physical was performed, and patient medications and allergies were reviewed. The patient is competent. The risks and benefits of the procedure and the sedation options and risks were discussed with the patient. All questions were answered and informed consent was obtained. Patient identification and proposed procedure were verified by the physician. Mental Status Examination: alert and oriented. Airway Examination: normal oropharyngeal airway and neck mobility. Respiratory Examination: clear to auscultation. CV Examination: normal. Prophylactic Antibiotics: The patient does not require prophylactic antibiotics. Prior Anticoagulants: The patient has taken no anticoagulant or antiplatelet agents except for NSAID medication. ASA Grade Assessment: II - A patient with mild systemic disease. After reviewing the risks and benefits, the patient was deemed in satisfactory condition to undergo the procedure. The anesthesia plan was to use monitored anesthesia care (MAC). Immediately prior to administration of medications, the patient was re-assessed for adequacy to receive sedatives. The heart rate, respiratory rate, oxygen saturations, blood pressure, adequacy of pulmonary ventilation, and response to care were monitored throughout the procedure. The physical status of the patient was re-assessed after the procedure. After obtaining informed consent, the endoscope was passed under direct vision. Throughout the procedure, the patient's blood pressure, pulse, and oxygen saturations were monitored continuously. The was introduced through the mouth, and advanced to the third part of the duodenum. Small bowel enteroscopy was deemed necessary. The upper GI endoscopy was accomplished without difficulty. The patient tolerated the procedure well. Scope In: 10:20:51 AM Scope Out: 10:21:52 AM Total Procedure Duration Time 0 hours 1 minute 1 second Findings: The examined esophagus was normal. A large amount of a Phytobezoar was found in the entire examined stomach. No gross lesions were noted in the entire examined duodenum. Impression: - Normal esophagus. - A large amount of a trichobezoar in the stomach. - No gross lesions in the entire examined duodenum. - No specimens collected. Recommendation: - Return patient to [facility] care. - Diabetic (ADA) diet. - Continue present medications. -Patient will need to be scheduled for endoscopic removal of the large phytobezoar. He will need to be intubated for the procedure. Procedure Code(s): --- Professional --- 71287, Small intestinal endoscopy, enteroscopy beyond second portion of duodenum, not including ileum; diagnostic, including collection of specimen(s) by brushing or washing, when performed (separate procedure) CPT copyright 2021 [employer]. All rights reserved. The codes documented in this report are preliminary and upon death surveys coder review may be revised to meet current compliance requirements. David Barraza DO 08/07/2025 10:50:35 AM This report has been signed electronically. Number of Addenda: 0 Note Initiated On: 08/07/2025 9:46 AM
--- NOTE | 2025-08-07 10:55 | OP.COLON_ITS ---
Patient Name: Vladimir Fallon Procedure Date: 08/07/2025 10:21 AM Date of : 1965 Age: 59 Procedure: Colonoscopy Indications: Hematochezia Providers: David Barraza DO Medicines: Monitored Anesthesia Care Patient Profile: This is a 59 year old male. Refer to note in patient chart for documentation of history and physical. Patient has symptoms of acute epigastric abdominal pain. Last Colonoscopy: date unknown. Unable to locate last colonoscopy report. Complications: No immediate complications. Procedure: Pre-Anesthesia Assessment: - Prior to the procedure, a History and Physical was performed, and patient medications and allergies were reviewed. The patient is competent. The risks and benefits of the procedure and the sedation options and risks were discussed with the patient. All questions were answered and informed consent was obtained. Patient identification and proposed procedure were verified by the physician. Mental Status Examination: alert and oriented. Airway Examination: normal oropharyngeal airway and neck mobility. Respiratory Examination: clear to auscultation. CV Examination: normal. Prophylactic Antibiotics: The patient does not require prophylactic antibiotics. Prior Anticoagulants: The patient has taken no anticoagulant or antiplatelet agents except for NSAID medication. ASA Grade Assessment: II - A patient with mild systemic disease. After reviewing the risks and benefits, the patient was deemed in satisfactory condition to undergo the procedure. The anesthesia plan was to use monitored anesthesia care (MAC). Immediately prior to administration of medications, the patient was re-assessed for adequacy to receive sedatives. The heart rate, respiratory rate, oxygen saturations, blood pressure, adequacy of pulmonary ventilation, and response to care were monitored throughout the procedure. The physical status of the patient was re-assessed after the procedure. After I obtained informed consent, the scope was passed under direct vision. Throughout the procedure, the patient's blood pressure, pulse, and oxygen saturations were monitored continuously. The was introduced through the anus and advanced to the cecum, identified by appendiceal orifice and ileocecal valve. The colonoscopy was performed without difficulty. The patient tolerated the procedure well. The quality of the bowel preparation was poor. The ileocecal valve, appendiceal orifice, and rectum were photographed. Scope In: 10:25:10 AM Scope Withdrawal Time 0 hours 8 minutes 17 seconds Scope Out: 10:37:43 AM Total Procedure Duration Time 0 hours 12 minutes 33 seconds Findings: The perianal and digital rectal examinations were normal. Stool was found in the entire colon, interfering with visualization. Lavage of the area was performed using greater than 500 mL of sterile water, resulting in incomplete clearance with continued poor visualization. An ulcerated non-obstructing medium-sized mass was found in the cecum. The mass was non-circumferential. Oozing was present. This was biopsied with a cold forceps for histology. Verification of patient identification for the specimen was done. Estimated blood loss was minimal. Impression: - Preparation of the colon was poor. - Stool in the entire examined colon. - Rule out malignancy, tumor in the cecum. Biopsied. 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 Biopsied. Biopsied. Recommendation: - Return patient to [facility] care. - Resume previous diet. - Continue present medications. - Await pathology results. - Repeat colonoscopy in the future pending biopsies, imaging and CEA. Procedure Code(s): --- Professional --- 71859, Colonoscopy, flexible; with biopsy, single or multiple CPT copyright 2021 [employer]. All rights reserved. The codes documented in this report are preliminary and upon city routeman review may be revised to meet current compliance requirements. David Barraza DO 08/07/2025 10:54:33 AM This report has been signed electronically. Number of Addenda: 0 Note Initiated On: 08/07/2025 10:21 AM
--- NOTE | 2025-08-07 10:55 | OP.PROVAT_ITS ---
08/07/2025 Tung Isaac Re : Colonoscopy procedure for Vladimir Fallon [place] This procedure was performed on Thursday, August 07, 2025. My impressions and recommendations are as follows: Impressions : - Preparation of the colon was poor. - Stool in the entire examined colon. - Rule out malignancy, tumor in the cecum. Biopsied. 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 Biopsied. Biopsied. Recommendations : - Return patient to [facility] care. - Resume previous diet. - Continue present medications. - Await pathology results. - Repeat colonoscopy in the future pending biopsies, imaging and CEA. My findings are described in the full procedure note, which is enclosed. If I can be of further assistance, please feel free to contact me at . Sincerely, David Barraza, 08/07/2025 10:54:33 AM This report has been signed electronically.
--- NOTE | 2025-08-07 11:45 | PCM.POST.ANE ---
Anesthesia: Postop Eval I Current Vital Signs Temperature: 98 F Pulse Rate: 100 Blood Pressure: 125/69 Respiratory Rate: 18 Pulse Ox: 99 Assessment Airway patent: Yes Spontaneous unlabored respirations: Yes Mental status: Awake and Calm nausea: No Vomiting: No Anesthesia Complication: No Fluid Hydration Crystalloid volume administer (ml): 30 Total IV fluid infused: 30 Progress Note Anesthesia document: Postop Eval 1 completed: Yes
--- NOTE | 2025-08-07 12:19 | NURSING ---
1142 patient returned from procedure. vital signs stable. family at bedside. Nikki Lovett RN
[2025-08-07] MEDS: Sodium Ferric Gluconat/Sucrose 250 MG in 0.9% Normal Saline (250mL Bag) 250 ML 135 MG IV (12:43)
--- NOTE | 2025-08-07 13:20 | PCM.POSTANE2 ---
Anesthesia Postop Eval I Sum Postop Eval Completion status Anesthesia document: Postop Eval 1 completed: Yes Anesthesia Postop Eval I Summary Anesthesia Postop Eval I Summary: Anesthesia Postop Eval I: Assessment Summary Airway patent Yes 08/07/25 13:16 Spontaneous unlabored Yes 08/07/25 13:16 respirations Mental status Awake,Calm 08/07/25 13:16 nausea No 08/07/25 13:16 Vomiting No 08/07/25 13:16 Anesthesia Postop Eval I: Fluid Summary Crystalloid volume administer 30 08/07/25 13:16 (ml) Colloids volume administered ( ml) Blood Product volume administered (ml) Total IV fluid infused 30 08/07/25 13:16 Anesthesia Postop Eval I: Summary Notes Anesthesia Complication No 08/07/25 13:16 Anesthesia Complication Comment: Post-operative progress note Anesthesia: Postop Eval II Evaluation Mental status: Awake Pain Level: 0 nausea: No Vomiting: No
--- NOTE | 2025-08-07 16:43 | DCINST_ITS ---
Discharge Instructions DC O2, CPAP, BIPAP needs Home O2 Discharge instructions: No Dressing / Incision Discharge Activity: - (Increase activity as tolerated) Follow Up Care Test Results: Test results from this visit will be discussed in further detail at your follow- up appointment, if applicable. Discharge Plan Admission Admit Date/Time: 08/05/25 01:04 Primary Reason for Your Visit: Abdominal pain and dark stool Attending Provider: Tia Rod Primary Care Provider: Tung Isaac Consulting Providers: Chino Collado; David Barraza; Christiane Levine; Court Marti; Niki Rodriguez; Radha Feliz; Quang Houston Instructions Patient Instructions: Colonoscopy: Post-op Additional Instructions / Restrictions: DISCHARGE INSTRUCTIONS PLEASE READ *Please take this with you to your next doctors appointment* - Please call your primary care physician in the morning to obtain an order for lab work for repeat hemoglobin (blood counts) in the next 1 to 2 days and to schedule a close hospital follow-up appointment as you will likely need more appointments and consultants coordinated moving forward depending on your biopsy results -You will need to follow-up with GI upon discharge, you will be contacted with your biopsy results but will also need seen as you may need to have a repeat upper endoscopy to remove some residual fiber that you are not digesting well -Please call your primary care provider's office upon discharge to schedule a spital follow up within 1 week. -For any concerning signs or symptoms please call 911 or proceed to the nearest emergency department Discharge Orders/Prescriptions Prescriptions: Continued mycophenolate mofetil 500 MG tablet 500 mg PO BID Patient Comments: pt is routine at taking antirejection meds at 8am and 8 pm. tacrolimus 1 MG capsule 3 mg PO DAILY@0800 Patient Comments: pt is routine at taking antirejection meds at 8am and 8 pm. tacrolimus 1 MG capsule 2 mg PO DAILY@2000 Patient Comments: pt is routine at taking antirejection meds at 8am and 8 pm. ferrous sulfate 325 mg (65 mg iron) tablet 325 mg PO BID Referrals / Follow Up: David Barraza DO [Med Staff - Active Staff, Gastroenterology] Tung Isaac MD [Primary Care Provider, Medical] - Within 1 Week Disposition Disposition (needs filled in before D/C Order can be placed): Home, Self Care
--- NOTE | 2025-08-07 16:45 | PCM.DC.SUM ---
Providers Date of Admission: 08/05/25 Date of Discharge: 08/07/25 Primary Care Physician: Dr. Tung Isaac MD Consultations 08/05/25 03:05 Consult: Gastroenterology Routine Consulting Provider: [facility] Reason for Consult: GI bleed, ABLA EMERGENT Consult: No MD Notified: Yes Date Notified: 08/05/25 Time Notified: 01:05 Method of Notification: Text Reason For Visit: GI BLEED, ABLA Diagnosis Discharge Diagnosis (1) Anemia: Status: Acute Code(s): D64.9 - Anemia, unspecified (2) Colon tumor: Status: Acute Code(s): D49.0 - Neoplasm of unspecified behavior of digestive system (3) Trichobezoar in stomach: Status: Acute Code(s): T18.2XXA - Foreign body in stomach, initial encounter Plan # Acute anemia 2/2 acute blood loss from colonic tumor # Enlarged retroperitoneal lymph nodes of unclear significance #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 #Trichobezoar noted on EGD Medications at Discharge Home Medications mycophenolate mofetil 500 mg tablet 500 mg PO BID ANTIREJECTION 07/09/20 tacrolimus 1 mg capsule, immediate-release 2 mg PO DAILY@2000 antirejection med 07/10/20 tacrolimus 1 mg capsule, immediate-release 3 mg PO DAILY@0800 anitrejection med 07/10/20 ferrous sulfate 325 mg (65 mg iron) tablet 325 mg PO BID 08/05/25 Hospital Course Procedures Colonoscopy and EGD Summary of Care Provided Minutes Spent on Discharge: 34 Hospital Course: 59-year-old male with a history of renal and pancreatic transplant in 2007 at the [facility] presented to [facility] ED 08/04/2025 due to abdominal pain on his left side that started several days before. On the day he presented he came in because he had black stool. In the ED patient afebrile, heart rate 110 with blood pressure initially documented at 99/48 however heart rate improved to the 80s with a blood pressure of 145/63, pulse ox 96% on room air. There was noted to be a downtrend in hemoglobin with previous hemoglobin of 14.9 and then around a week ago hemoglobin of 12.5 with hemoglobin in the ED of 10.3. He was started on Protonix and typed and crossed but not transfused and due to vitals being stable and hemoglobin of 10. 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 A CT scan was done without contrast as patient refused contrast due to his history of renal transplant and concern for his kidney. Patient admitted due to concern for GI bleed given the drop in hemoglobin with self-reported dark stools and abdominal pain with plans for endoscopy. Patient's hemoglobin stabilized and on EGD he was found to have trichobezoar and stomach with normal esophagus and duodenum, colonoscopy showed poor prep but noted tumor in the cecum and tumor in the colon which were biopsied. Art Tracer discussed findings with patient and patient's sister. Additionally I discussed with molding machine operator and it was advised that patient could have iron transfusion and then be discharged for further outpatient workup. Hopeful for biopsy results early to mid week and then further plan can be made at that time. On day of discharge patient with no new or acute complaints, no further abdominal pain, denies any blood in stool or nausea, tolerating diet. Questions answered. Discharge instructions as follows: - Please call your primary care physician in the morning to obtain an order for lab work for repeat hemoglobin (blood counts) in the next 1 to 2 days and to schedule a close hospital follow-up appointment as you will likely need more appointments and consultants coordinated moving forward depending on your biopsy results -You will need to follow-up with GI upon discharge, you will be contacted with your biopsy results but will also need seen as you may need to have a repeat upper endoscopy to remove some residual fiber that you are not digesting well -Please call your primary care provider's office upon discharge to schedule a hospital follow up within 1 week. -For any concerning signs or symptoms please call 911 or proceed to the nearest emergency department Physical Exam Narrative General: Alert, oriented, no apparent distress HEENT: Atraumatic, normocephalic Eyes: Anicteric, normal conjunctiva, extraocular movements grossly intact Neck: Supple Respiratory: Clear to auscultation bilaterally, normal respiratory effort Cardiovascular: Regular rate and rhythm GI: Soft, nontender, nondistended Extremities: No edema Musculoskeletal: Moving all extremities Neuro: No overt focal neurological deficits Skin: No rashes appreciated Psych: Cooperative Weight / BMI Weight Weight: 80.6 kg Body Mass Index (BMI) 26.3 ABG / Lab / Microbiology Data 08/07/25 06:50 08/07/25 06:50 Laboratory: Laboratory Results - last 24 hr 08/07/25 06:50: WBC 5.6, RBC 4.82, Hgb 10.2 L, Hct 34.3 L, MCV 71.2 L, MCH 21.2 L, MCHC 29.7 L D, RDW Std Deviation 38.8, RDW Coeff of Jairo 15.5 H, Plt Count 222, MPV 9.9, Sodium 137, Potassium 4.0, Chloride 104, Carbon Dioxide 22.2, Anion Gap 12, BUN 7, Creatinine 0.71, Estim Creat Clear Calc 110.64, Est GFR (MDRD) Non-Af 105, BUN/Creatinine Ratio 9.8 L, Glucose 112 H, Calcium 8.9 D/C Instructions DC O2, CPAP, BIPAP Needs Home O2 Discharge instructions: No Meaningful Use Info Meaningful Use Meaningful Use Diagnoses (Choose all that apply): None applicable Discharge Plan Admission Admit Date/Time: 08/05/25 01:04 Primary Reason for Your Visit: Abdominal pain and dark stool Attending Provider: Tia Rod Primary Care Provider: Tung Isaac Consulting Providers: Chino Collado; David Barraza; Christiane Levine; Court Marti; Niki Rodriguez; Radha Fleiz; Quang Houston Instructions Patient Instructions: Colonoscopy: Post-op Additional Instructions / Restrictions: DISCHARGE INSTRUCTIONS PLEASE READ *Please take this with you to your next doctors appointment* - Please call your primary care physician in the morning to obtain an order for lab work for repeat hemoglobin (blood counts) in the next 1 to 2 days and to schedule a close hospital follow-up appointment as you will likely need more appointments and consultants coordinated moving forward depending on your biopsy results -You will need to follow-up with GI upon discharge, you will be contacted with your biopsy results but will also need seen as you may need to have a repeat upper endoscopy to remove some residual fiber that you are not digesting well -Please call your primary care provider's office upon discharge to schedule a hospital follow up within 1 week. -For any concerning signs or symptoms please call 911 or proceed to the nearest emergency department Discharge Orders/Prescriptions Prescriptions: Continued mycophenolate mofetil 500 MG tablet 500 mg PO BID Patient Comments: pt is routine at taking antirejection meds at 8am and 8 pm. tacrolimus 1 MG capsule 3 mg PO DAILY@0800 Patient Comments: pt is routine at taking antirejection meds at 8am and 8 pm. tacrolimus 1 MG capsule 2 mg PO DAILY@2000 Patient Comments: pt is routine at taking antirejection meds at 8am and 8 pm. ferrous sulfate 325 mg (65 mg iron) tablet 325 mg PO BID Referrals / Follow Up: David Barraza DO [Med Staff - Active Staff, Gastroenterology] Tung Isaac MD [Primary Care Provider, Medical] - Within 1 Week Disposition Disposition (needs filled in before D/C Order can be placed): Home, Self Care Charges/Coding Visit Charges Inpatient E&M: 11139 Disch Hosp >30min
[2025-08-09 04:07] LABS: Carcinoembryonic Antigen 1.3 ng/mL (0.0-4.7)
== END 2025-08-07 17:56 | disposition home or self-care (01) | DRG 378 ==
LOC: ED 23:59 → MS3 08-05 01:09
PROVIDERS: Anesthesiology; Internal Medicine; Internal Medicine Gastroenterology; Admitting Provider Family Medicine; Emergency Provider Emergency Medicine; PCP Family Medicine; Visit Provider Internal Medicine
DX: K92.2 Gastrointestinal hemorrhage, unspecified (principal); Z94.83 Pancreas transplant status; Z94.0 Kidney transplant status; D62 Acute posthemorrhagic anemia; D50.9 Iron deficiency anemia, unspecified; E11.9 Type 2 diabetes mellitus without complications; K21.9 Gastro-esophageal reflux disease without esophagitis; R59.0 Localized enlarged lymph nodes
CPT/HCPCS: 36415; 74176; 80048; 80053; 80197; 81001; 82150; 82378; 82962; 83036; 83690; 85014; 85018; 85025; 85027; 85610; 85730; 86850; 86900; 86901; 88305; 88341; 88342; 93005; 94668; 97802; 99284; A4216; J2405; J2916